=== PATIENT | female | born 1990 | race Native Hawaiian/Other Pacific Islander ===

== ENCOUNTER 2017-01-18 08:00 | Outpatient (CLI) | payer MEDICARE, MEDICAID ==
[2017-01-18 19:01] LABS: BASOPHILS % (AUTO) 0.4 %; EOSINOPHILS % (AUTO) 0.6 %; HCT - HEMATOCRIT 39.6 % (37.0-47.0); HGB - HEMOGLOBIN 13.3 g/dL (12.0-16.0); LYMPHOCYTES # (AUTO) 1.8 10^3/uL (1.5-3.5); LYMPHOCYTES % (AUTO) 35.8 %; MEAN CORPUSCULAR HEMOGLOBIN 31.4 pg (27.0-31.0); MEAN CORPUSCULAR HGB CONC 33.6 g/dL (32.0-36.0); MEAN CORPUSCULAR VOLUME 93.3 fL (81.0-99.0); MEAN PLATELET VOLUME 7.6 fL (7.9-10.8); MONOCYTES # (AUTO) 0.4 10^3/uL (0.0-1.0); MONOCYTES % (AUTO) 8.8 %; NEUTROPHILS # (AUTO) 2.7 10^3/uL (1.5-6.6); NEUTROPHILS % (AUTO) 54.4 %; NUCLEATED RED BLOOD CELLS AUTO 0.1 /100WBC; RED BLOOD COUNT 4.24 10^6/uL (4.20-5.40)
[2017-01-18 19:28] LABS: ALBUMIN/GLOBULIN RATIO 1.2 (1.0-2.2); BILIRUBIN,TOTAL 0.5 mg/dL (0.2-1.0); CALCIUM 8.9 mg/dL (8.5-10.3); CREATININE 0.7 mg/dL (0.4-1.0); POTASSIUM 3.4 mmol/L (3.5-5.0); TOTAL PROTEIN 7.8 g/dL (6.7-8.2)
[2017-01-18 19:35] LABS: T3 UPTAKE 40.1 % (32.0-48.4)
[2017-01-18 19:37] LABS: THYROID STIMULATING HORMONE 1.27 uIU/mL (0.34-5.60)
[2017-01-18 19:49] LABS: FOLATE 11.39 ng/mL (5.90 - >24.8)
== END 2017-01-18 08:01 | disposition home or self-care (01) ==
LOC: LAB.N 08:00
PROVIDERS: ATTEND Nurse Practitioner Psychiatric/Mental Health
DX: F29 Unspecified psychosis not due to a substance or known physiological condition (principal); Z51.81 Encounter for therapeutic drug level monitoring
CPT/HCPCS: 36415; 80053; 82746; 84436; 84443; 84479; 85025

== ENCOUNTER 2018-07-26 19:59 | Emergency (ER) | payer MEDICARE, MEDICAID ==
--- NOTE | 2018-07-26 20:46 | ED Physician Documentation ---
History of Present Illness - Stated complaint Stated Complaint: RT KNEE INJ - Chief complaint Chief Complaint: Trauma Ext - History obtained from History obtained from: Family - Additonal information Additional information: Patient is a 28-year-old female with history of developmental delay and schizophrenia presenting with her family with concern for right knee pain. Patient was traveling yesterday in the airport and was sitting in a wheelchair and her knee accidentally hit an object while she was being pushed around. Really denies any particular skin changes or swelling. It is difficult to ascertain if patient is experiencing any significant sensation, strength, range of motion change, but she does hold me in a flexed position. No other injuries noted. No other improving or worsening factors noted. No medications given at home yet. Review of Systems Skin: denies: Rash, Abrasion (s) Musculoskeletal: reports: Extremity pain, Joint pain. denies: Extremity swelling PD PAST MEDICAL HISTORY - Past Medical History Psych: Schizophrenia - Past Surgical History Past Surgical History: No - Present Medications Home Medications: Ambulatory Orders Medication Instructions Recorded Confirmed RX: OLANZapine [ZyPREXA] 20 mg PO DAILY 01/25/14 01/25/14 Fluoxetine HCl [Prozac] 20 mg ORAL DAILY 07/26/18 07/26/18 - Allergies Allergies/Adverse Reactions: Allergies Allergy/AdvReac Type Severity Reaction Status Date / Time No Known Drug Allergies Allergy Verified 07/26/18 20:17 - Social History Does the pt smoke?: No Smoking Status: Never smoker Does the pt drink ETOH?: No Does the pt have substance abuse?: No - Immunizations Immunizations are current?: Yes - POLST Patient has POLST: No PD ED PE NORMAL - Vitals Vital signs reviewed: Yes - General General: No acute distress, Well developed/nourished (Appears chronically ill, nonverbal) - HEENT HEENT: Atraumatic - Cardiac Cardiac: Strong equal pulses (Cap refill brisk) - Respiratory Respiratory: No respiratory distress - Derm Derm: Normal color, Warm and dry, No rash - Extremities Extremities: No deformity, No tenderness to palpate, Normal ROM s pain, No edema - Neuro Neuro: No motor deficit, No sensory deficit (No gross deficits noted) Results - Vitals Vitals: Vital Signs - 24 hr 07/26/18 07/26/18 07/26/18 20:09 20:36 22:26 Temperature 37.5 C 37.4 C Heart Rate 99 99 98 Respiratory 16 16 Rate Blood Pressure 89/48 L 85/53 L 105/68 O2 Saturation 100 100 Oxygen O2 Source Room air PD MEDICAL DECISION MAKING - ED course Complexity details: reviewed results, re-evaluated patient, considered differential, d/w patient, d/w family ED course: History is obtained through family as patient is nonverbal at baseline. Family report no major changes to mental or physical status except for reported knee injury on the right yesterday and patient's unwillingness to use the right leg. Do not find evidence of vascular compromise, infection, or joint effusion. Do not see high suspicion for fracture or dislocation, but obtained x-rays to further evaluate. Also have lower suspicion for internal knee injury such as meniscus or ligamentous damage, although given patient's baseline, difficult to obtain full physical exam. X-rays returned without evidence of acute pathology and feel most appropriate to discharge patient with supportive cares, as well as return precautions and advisement to follow-up with primary care physician. Family voiced understanding and are comfortable with discharge plan. Departure - Departure Disposition: 01 Home, Self Care Clinical Impression: Knee injury Instructions: ED Sprain Knee Follow-Up: Blanca Kent ARNP [Primary Care Provider] - Within 3 Days Comments: Please continue all home medications as previously instructed. May use ibuprofen/Tylenol for pain and knee. Also recommend elevation and ice application to help reduce swelling.Return to ED sooner if expands worsening symptoms or other concerns. Recommend follow-up with primary care physician in next 2 to 3 days. Discharge Date/Time: 07/26/18 22:28
--- NOTE | 2018-07-26 21:48 | XRAY Report ---
Reason: hit leg in airport while in wheelchair Procedure Date: 07/26/2018 Accession Number: [id number] / [id number] Procedure: XR - Knee 4 View RT CPT Code: FULL RESULT: EXAM: RIGHT KNEE RADIOGRAPHY EXAM DATE: 07/26/2018 09:29 PM. CLINICAL HISTORY: Hit leg in airport while in wheelchair. COMPARISON: None. TECHNIQUE: 4 views. FINDINGS: Bones: No acute fractures or suspicious bone lesions. Joints: No effusion. No subluxations. Joint spaces are preserved. Soft Tissues: Unremarkable. IMPRESSION: Unremarkable knee radiography. RADIA
[2018-07-26 22:28] VITALS: BP 105/68
== END 2018-07-26 22:28 | disposition home or self-care (01) ==
LOC: ED 19:59
DX: S89.91XA Unspecified injury of right lower leg, initial encounter (principal); W22.09XA Striking against other stationary object, initial encounter; Y93.89 Activity, other specified; Y92.520 Airport as the place of occurrence of the external cause; F20.9 Schizophrenia, unspecified
CPT/HCPCS: 99283

== ENCOUNTER 2018-11-16 08:00 | Outpatient (CLI) | payer MEDICARE, MEDICAID ==
[2018-11-16 19:41] LABS: BASOPHILS % (AUTO) 0.3 %; EOSINOPHILS # (AUTO) 0.1 10^3/uL (0.0-0.7); EOSINOPHILS % (AUTO) 2.1 %; HGB - HEMOGLOBIN 12.2 g/dL (12.0-16.0); LYMPHOCYTES # (AUTO) 1.2 10^3/uL (1.5-3.5); LYMPHOCYTES % (AUTO) 34.5 %; MEAN CORPUSCULAR HEMOGLOBIN 28.6 pg (27.0-31.0); MEAN CORPUSCULAR HGB CONC 31.3 g/dL (32.0-36.0); MEAN CORPUSCULAR VOLUME 91.5 fL (81.0-99.0); MEAN PLATELET VOLUME 10.5 fL (7.9-10.8); MONOCYTES # (AUTO) 0.3 10^3/uL (0.0-1.0); MONOCYTES % (AUTO) 9.5 %; NEUTROPHILS # (AUTO) 1.8 10^3/uL (1.5-6.6); NEUTROPHILS % (AUTO) 53.3 %; PLT - PLATELET COUNT 262 10^3/uL (130-450); RED BLOOD COUNT 4.26 10^6/uL (4.20-5.40); RED CELL DISTRIBUTION WIDTH 13.7 % (12.0-15.0); WHITE BLOOD COUNT 3.4 x10^3/uL (4.8-10.8)
[2018-11-16 19:55] LABS: ALBUMIN 4.3 g/dL (3.2-5.5); ALBUMIN/GLOBULIN RATIO 1.1 (1.0-2.2); BILIRUBIN,TOTAL 0.3 mg/dL (0.2-1.0); CREATININE 0.7 mg/dL (0.4-1.0); TOTAL PROTEIN 8.2 g/dL (6.7-8.2)
[2018-11-16 20:06] LABS: THYROID STIMULATING HORMONE 3.51 uIU/mL (0.34-5.60)
[2018-11-16 20:08] LABS: FREE T4 (FREE THYROXINE) 1.14 ng/dL (0.58-1.64)
[2018-11-16 21:11] LABS: PLATELET ESTIMATE, MANUAL NORMAL (130-450,000) (NORMAL); PLATELET MORPHOLOGY NORMAL APPEARANCE (NORMAL); RBC MORPHOLOGY (MULTIPLE) NORMAL APPEARANCE (NORMAL)
[2018-11-16 21:13] LABS: DIFFERENTIAL COMMENT MANUAL=AUTO DIFF
== END 2018-11-16 23:59 | disposition home or self-care (01) ==
LOC: LAB.N 08:00
PROVIDERS: ATTEND Physician Assistant Medical
DX: R63.0 Anorexia (principal); E87.6 Hypokalemia; R62.50 Unspecified lack of expected normal physiological development in childhood
CPT/HCPCS: 36415; 80053; 84439; 84443; 85025

== ENCOUNTER 2018-11-16 11:51 | Outpatient (CLI) | payer MEDICARE, MEDICAID | END 2018-11-16 11:52 | disposition critical access hospital (66) | LOC: EMS 11:51 | PROVIDERS: ATTEND Surgery | DX: R55 Syncope and collapse (principal) | CPT/HCPCS: A0425; A0427 ==

== ENCOUNTER 2018-11-16 12:13 | Emergency (ER) | payer MEDICARE, MEDICAID ==
[2018-11-16] MEDS ORDERED: SODIUM CHLORIDE 0.9% 1,000 ML IV ONE (12:30)
--- NOTE | 2018-11-16 13:15 | ED Physician Documentation ---
History of Present Illness - Stated complaint Stated Complaint: SYNCOPAL - Chief complaint Chief Complaint: General - History obtained from History obtained from: Family (mom) - History of Present Illness Timing: Today (This is a young lady with pretty severe schizophrenia. She was having a blood draw at the clinic today and shortly thereafter had a syncopal episode. Mom feels that she might be dehydrated because all she drinks his coffee. She is never passed out like this with a blood draw before though. Patient herself is noncommunicative which is her baseline.) Review of Systems Constitutional: denies: Fever GI: denies: Vomiting, Constipation, Diarrhea Skin: reports: Rash (She is a long-standing rash for which she has seen a dog bather. They have been giving her Benadryl for the itching which is not helping.) PD PAST MEDICAL HISTORY - Past Medical History Psych: Schizophrenia - Past Surgical History Past Surgical History: No - Present Medications Home Medications: Ambulatory Orders Medication Instructions Recorded Confirmed OLANZapine [ZyPREXA] 20 mg PO DAILY 01/25/14 01/25/14 Fluoxetine HCl [Prozac] 20 mg ORAL DAILY 07/26/18 07/26/18 - Allergies Allergies/Adverse Reactions: Allergies Allergy/AdvReac Type Severity Reaction Status Date / Time No Known Drug Allergies Allergy Verified 07/26/18 20:17 - Social History Does the pt smoke?: No Smoking Status: Never smoker Does the pt drink ETOH?: No Does the pt have substance abuse?: No - Immunizations Immunizations are current?: Yes - POLST Patient has POLST: No PD ED PE NORMAL - Vitals Vital signs reviewed: Yes - General General: Other (She will look at me and smile. She is nonverbal. She intermittently follows very simple commands but for the most part just sits in bed staring. This is her baseline per the family.) - HEENT HEENT: PERRL - Neck Neck: Supple, no meningeal sign - Cardiac Cardiac: RRR, No murmur - Respiratory Respiratory: No respiratory distress, Clear bilaterally - Abdomen Abdomen: Non tender - Derm Derm: Other (She has a plaque-like rash on the face stomach and arms. She is been seeing a dog bather but the mom does not know what the specific diagnosis is.) Results - Vitals Vitals: Vital Signs - 24 hr 11/16/18 11/16/18 11/16/18 12:16 12:30 12:45 Temperature 37.3 C Heart Rate 70 76 85 Respiratory 16 16 16 Rate Blood Pressure 84/57 L 90/52 L 102/72 O2 Saturation 100 98 98 11/16/18 11/16/18 13:00 13:46 Temperature Heart Rate 82 87 Respiratory 16 16 Rate Blood Pressure 91/62 95/66 O2 Saturation Oxygen O2 Source Room air - EKG (time done) 1334 Rate: Rate (enter#) (90) Rhythm: NSR [place]: Normal Intervals: Normal [place] QRS: Normal Ischemia: Non specific changes Computer interpretation: Agree with computer - Labs Labs: Laboratory Tests 11/16/18 11/16/18 11/16/18 12:46 12:57 12:57 WBC 6.9 RBC 3.67 L Hgb 11.1 L Hct 33.1 L MCV 90.2 MCH 30.2 MCHC 33.5 RDW 13.2 Plt Count 218 MPV 10.0 Neut # (Auto) 5.2 Lymph # (Auto) 1.2 L [place] # (Auto) 0.4 Eos # (Auto) 0.1 Baso # (Auto) 0.0 Absolute Nucleated RBC 0.00 Nucleated RBC % 0.0 Sodium 144 Potassium 3.8 Chloride 111 Carbon Dioxide 23 Anion Gap 10.0 BUN 8 Creatinine 0.7 Estimated GFR (MDRD) 99 Glucose 92 Calcium 8.2 L Total Bilirubin 0.4 AST 22 ALT 11 Alkaline Phosphatase 44 Total Protein 7.0 Albumin 3.6 Globulin 3.4 Albumin/Globulin Ratio 1.1 Lipase 25 Serum HCG, Qual NEGATIVE PD MEDICAL DECISION MAKING - ED course ED course: This young lady had a syncopal episode after a blood draw. Nothing on the work- up would suggest any cause other than vasovagal. She is mildly anemic and follow-up was advised. Note made that she has borderline low blood pressure, but review of the chart shows that this is frequent on previous emergency visits. Departure - Departure Disposition: 01 Home, Self Care Clinical Impression: Syncope Qualifiers: Syncope type: vasovagal syncope Qualified Code(s): R55 - Syncope and collapse Anemia Qualifiers: Anemia type: unspecified type Qualified Code(s): D64.9 - Anemia, unspecified Condition: Good Record reviewed to determine appropriate education?: Yes Instructions: ED Syncope Vasovagal Comments: Vanessa is mildly anemic. She needs to follow-up with her doctor for this. Return for new or worsening symptoms.
[2018-11-16 13:17] LABS: BASOPHILS % (AUTO) 0.3 %; EOSINOPHILS # (AUTO) 0.1 10^3/uL (0.0-0.7); EOSINOPHILS % (AUTO) 0.7 %; HGB - HEMOGLOBIN 11.1 g/dL (12.0-16.0); LYMPHOCYTES # (AUTO) 1.2 10^3/uL (1.5-3.5); LYMPHOCYTES % (AUTO) 17.1 %; MEAN CORPUSCULAR HEMOGLOBIN 30.2 pg (27.0-31.0); MEAN CORPUSCULAR HGB CONC 33.5 g/dL (32.0-36.0); MEAN CORPUSCULAR VOLUME 90.2 fL (81.0-99.0); MONOCYTES # (AUTO) 0.4 10^3/uL (0.0-1.0); MONOCYTES % (AUTO) 5.8 %; NEUTROPHILS # (AUTO) 5.2 10^3/uL (1.5-6.6); NEUTROPHILS % (AUTO) 75.7 %; PLT - PLATELET COUNT 218 10^3/uL (130-450); RED BLOOD COUNT 3.67 10^6/uL (4.20-5.40); RED CELL DISTRIBUTION WIDTH 13.2 % (12.0-15.0); WHITE BLOOD COUNT 6.9 x10^3/uL (4.8-10.8)
[2018-11-16 13:34] LABS: ALBUMIN 3.6 g/dL (3.2-5.5); ALBUMIN/GLOBULIN RATIO 1.1 (1.0-2.2); BILIRUBIN,TOTAL 0.4 mg/dL (0.2-1.0); CREATININE 0.7 mg/dL (0.4-1.0)
[2018-11-16 13:43] LABS: HCG,QUALITATIVE BLOOD NEGATIVE
[2018-11-16 13:44] LABS: CALCIUM 8.2 mg/dL (8.5-10.3)
[2018-11-16 13:47] VITALS: BP 95/66
== END 2018-11-16 14:32 | disposition home or self-care (01) ==
LOC: EDUNIT# → EDBD → ED 12:13
DX: R55 Syncope and collapse (principal); D64.9 Anemia, unspecified; R21 Rash and other nonspecific skin eruption; F20.9 Schizophrenia, unspecified; E87.6 Hypokalemia; R62.50 Unspecified lack of expected normal physiological development in childhood; R63.0 Anorexia
CPT/HCPCS: 36415; 80053; 83690; 84439; 84443; 84703; 85025; 93005; 96360; 99283

== ENCOUNTER 2018-12-22 10:47 | Outpatient (CLI) | payer MEDICARE, MEDICAID | END 2018-12-22 10:48 | disposition EMS.NT | LOC: EMS 10:47 | PROVIDERS: ATTEND Surgery | DX: R11.10 Vomiting, unspecified (principal) ==

== ENCOUNTER 2019-01-05 12:51 | Outpatient (CLI) | payer MEDICARE, MEDICAID | END 2019-01-05 12:52 | disposition critical access hospital (66) | LOC: EMS 12:51 | PROVIDERS: ATTEND Surgery | DX: R55 Syncope and collapse (principal); R19.7 Diarrhea, unspecified; R11.2 Nausea with vomiting, unspecified | CPT/HCPCS: A0425; A0429 ==

== ENCOUNTER 2019-01-05 13:13 | Emergency (ER) | payer MEDICARE, MEDICAID ==
--- NOTE | 2019-01-05 13:23 | ED Physician Documentation ---
PD HPI SYNCOPE - Stated complaint Stated Complaint: SYNCOPE - History obtained from History obtained from: Family, Caregiver - History of Present Illness Witnessed: Witnessed Timing - onset: Today Duration: Unknown Preceding symptoms: Abdominal pain Associated symptoms: Nausea / vomiting, Abdominal pain. No: Seizure, Incontinant of urine, Incontinant of stool Contributing factors: Recent med change Injury occurred: None. No: Head injury, Neck injury Similar symptoms before: Has not had sx before Recently seen: Admitted - Additional information Additional information: This is a 28-year-old Dutch speaking woman who presents with her family with complaints that she has had 4 episodes of significant diarrhea followed by returning to her room and a passing out. She was just admitted to [facility] for what the family says was a month with some rash that no one could figure out the source of it they finally diagnosed her with lupus just 2 days ago and gave her prescription for hydrochloric when from the research program intern but the mom only gave her 1 dose and was concerned that the diarrhea was associated with that. She did vomit in the ambulance but had not been vomiting at home. She is had subjective fevers at home. No coughing. She does have a history of schizophrenia and they deny any . Family just noted today that her left eye was swollen as well and she has erythema to both conjunctiva. Review of Systems Unable to obtain: Other (Patient has a underlying diagnosis of schizophrenia and is difficult to get any history from even using an renal social worker. She just sits and smiles) Constitutional: reports: Fever (Subjective) Throat: denies: Sore throat Respiratory: denies: Cough GI: reports: Abdominal Pain, Vomiting, Diarrhea. denies: Bloody / black stool : denies: Dysuria, Now EGA Skin: reports: Rash Neurologic: reports: Syncope Psychiatric: reports: Other (History of schizophrenia) PD PAST MEDICAL HISTORY - Past Medical History Cardiovascular: Deep vein thrombosis Psych: Schizophrenia - Past Surgical History Past Surgical History: No - Present Medications Home Medications: Ambulatory Orders Medication Instructions Recorded Confirmed OLANZapine [ZyPREXA] 20 mg PO DAILY 01/25/14 01/25/14 Fluoxetine HCl [Prozac] 20 mg ORAL DAILY 07/26/18 07/26/18 Doxepin [SINEquan] 10 mg PO TID PRN #30 capsule 11/16/18 - Allergies Allergies/Adverse Reactions: Allergies Allergy/AdvReac Type Severity Reaction Status Date / Time mirtazapine Allergy Unknown Verified 01/05/19 13:25 - Social History Does the pt smoke?: No Smoking Status: Never smoker Does the pt drink ETOH?: No Does the pt have substance abuse?: No - Immunizations Immunizations are current?: Yes - POLST Patient has POLST: No PD ED PE NORMAL - Vitals Vital signs reviewed: Yes - General General: Alert and oriented X 3, No acute distress, Well developed/nourished - HEENT HEENT: Atraumatic, Other (The left upper and lower eyelids are edematous but they look mildly bruised along the medial aspect. Both conjunctiva have what looks like subconjunctival hemorrhages along the medial aspect. The tongue is covered with ulcerations along the side and tip and extending onto the top and bottom of it. There are no Cheek mucosal lesions.) - Neck Neck: No adenopathy, Thyroid normal - Cardiac Cardiac: No murmur, Strong equal pulses, Other (Tachycardia) - Respiratory Respiratory: No respiratory distress, Clear bilaterally - Abdomen Abdomen: Other (Hypoactive bowel tones. She has tenderness with palpation in the abdomen particularly along the right side. 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 ) - Derm Derm: Other (Patient's skin is covered with target lesions and other flat erythematous papules. The right ear pinna has a ulcerated area with scabbing that encompasses down onto the jaw several millimeters long and only a millimeter or 2 wide.) Results - Vitals Vitals: Vital Signs - 24 hr 01/05/19 01/05/19 01/05/19 13:25 13:44 15:30 Temperature 36.5 C Heart Rate 126 H 123 H 115 H Respiratory 26 H 22 20 Rate Blood Pressure 92/60 82/58 L 99/66 O2 Saturation 97 22 L 100 01/05/19 01/05/19 01/05/19 16:00 17:00 17:35 Temperature 36.7 C Heart Rate 111 H 104 H 103 H Respiratory 18 22 24 Rate Blood Pressure 92/59 L 100/71 92/63 O2 Saturation 100 100 100 01/05/19 01/05/19 01/05/19 18:00 18:30 18:49 Temperature Heart Rate 95 98 97 Respiratory 24 24 28 H Rate Blood Pressure 94/61 91/51 L 87/46 L O2 Saturation 98 100 100 01/05/19 01/05/19 01/05/19 18:53 19:01 19:15 Temperature 36.6 C Heart Rate 96 91 96 Respiratory 24 28 H 28 H Rate Blood Pressure 89/55 L 99/63 99/63 O2 Saturation 97 100 100 01/05/19 01/05/19 01/05/19 20:48 22:00 23:23 Temperature Heart Rate 92 94 95 Respiratory 15 19 12 Rate Blood Pressure 93/57 L 101/65 98/60 O2 Saturation 100 99 100 01/06/19 01/06/19 01/06/19 01:08 01:52 02:12 Temperature 36.1 C L Heart Rate 112 H 87 87 Respiratory 16 17 19 Rate Blood Pressure 118/71 82/47 L 93/55 L O2 Saturation 98 99 99 Oxygen O2 Source Room air - EKG (time done) 1401 Rate: Rate (enter#) (126) Rhythm: Sinus tachycardia Intervals: Normal [place]. No: Wide QRS Ischemia: Normal ST segments Compare to prior EKG: Old EKG unavailable - Labs Labs: Laboratory Tests 01/05/19 01/05/19 01/05/19 13:15 13:52 13:52 WBC 7.9 RBC 4.72 Hgb 14.2 Hct 42.4 MCV 89.8 MCH 30.1 MCHC 33.5 RDW 16.2 H Plt Count 157 MPV 10.0 Neut # (Auto) Not Reportable Lymph # (Auto) Not Reportable [place] # (Auto) Not Reportable Eos # (Auto) Not Reportable Baso # (Auto) Not Reportable Absolute Nucleated RBC Not Reportable Total Counted 100 Band Neuts % (Manual) 6 Abnorm Lymph % (Manual) 0 Nucleated RBC % Not Reportable Neutrophils # (Manual) 6.9 H Lymphocytes # (Manual) 0.9 L Monocytes # (Manual) 0.2 Eosinophils # (Manual) 0.0 Basophils # (Manual) 0.0 Differential Comment MANUAL DIFFERENTIAL Manual Slide Review Indicated Platelet Estimate NORMAL (130-450,000) Platelet Morphology NORMAL APPEARANCE RBC Morph Micro Appear NORMAL APPEARANCE VBG pH VBG pCO2 VBG pO2 VBG HCO3 VBG Total CO2 VBG O2 Saturation VBG Base Excess Sodium 136 Potassium 4.7 Chloride 103 Carbon Dioxide 22 Anion Gap 11.0 BUN 14 Creatinine 0.7 Estimated GFR (MDRD) 99 Glucose 140 H Lactic Acid Calcium 8.4 L Total Bilirubin 0.8 AST 31 ALT 29 Alkaline Phosphatase 53 Total Protein 7.2 Albumin 3.3 Globulin 3.9 Albumin/Globulin Ratio 0.8 L Lipase 24 Urine Color Urine Clarity Urine pH Ur Specific [place] Urine Protein Urine Glucose (UA) Urine Ketones Urine Occult Blood Urine Nitrite Urine Bilirubin Urine Urobilinogen Ur Leukocyte Esterase Urine RBC Urine WBC Urine WBC Clumps Ur Squamous Epith Cells Urine Bacteria Urine Mucus Ur Microscopic Review Urine Culture Comments HIV 1&2 Antibody Rapid NEGATIVE 01/05/19 01/05/19 01/05/19 14:01 16:20 17:13 WBC RBC Hgb Hct MCV MCH MCHC RDW Plt Count MPV Neut # (Auto) Lymph # (Auto) [place] # (Auto) Eos # (Auto) Baso # (Auto) Absolute Nucleated RBC Total Counted Band Neuts % (Manual) Abnorm Lymph % (Manual) Nucleated RBC % Neutrophils # (Manual) Lymphocytes # (Manual) Monocytes # (Manual) Eosinophils # (Manual) Basophils # (Manual) Differential Comment Manual Slide Review Platelet Estimate Platelet Morphology RBC Morph Micro Appear VBG pH 7.412 H VBG pCO2 35.7 L VBG pO2 45.9 VBG HCO3 22.2 L VBG Total CO2 23.3 L VBG O2 Saturation 82.9 H VBG Base Excess -1.8 Sodium Potassium Chloride Carbon Dioxide Anion Gap BUN Creatinine Estimated GFR (MDRD) Glucose Lactic Acid 1.6 Calcium Total Bilirubin AST ALT Alkaline Phosphatase Total Protein Albumin Globulin Albumin/Globulin Ratio Lipase Urine Color DARK YELLOW Urine Clarity CLEAR Urine pH 6.5 Ur Specific [place] 1.010 Urine Protein 30 H Urine Glucose (UA) NEGATIVE Urine Ketones NEGATIVE Urine Occult Blood MODERATE H Urine Nitrite NEGATIVE Urine Bilirubin NEGATIVE Urine Urobilinogen 0.2 (NORMAL) Ur Leukocyte Esterase NEGATIVE Urine RBC 0-5 Urine WBC 4-5 Urine WBC Clumps PRESENT Ur Squamous Epith Cells MANY Squamous H Urine Bacteria Many H Urine Mucus Few Strands Ur Microscopic Review INDICATED Urine Culture Comments NOT INDICATED HIV 1&2 Antibody Rapid 01/05/19 20:30 WBC RBC Hgb Hct MCV MCH MCHC RDW Plt Count MPV Neut # (Auto) Lymph # (Auto) [place] # (Auto) Eos # (Auto) Baso # (Auto) Absolute Nucleated RBC Total Counted Band Neuts % (Manual) Abnorm Lymph % (Manual) Nucleated RBC % Neutrophils # (Manual) Lymphocytes # (Manual) Monocytes # (Manual) Eosinophils # (Manual) Basophils # (Manual) Differential Comment Manual Slide Review Platelet Estimate Platelet Morphology RBC Morph Micro Appear VBG pH VBG pCO2 VBG pO2 VBG HCO3 VBG Total CO2 VBG O2 Saturation VBG Base Excess Sodium Potassium Chloride Carbon Dioxide Anion Gap BUN Creatinine Estimated GFR (MDRD) Glucose Lactic Acid 1.1 Calcium Total Bilirubin AST ALT Alkaline Phosphatase Total Protein Albumin Globulin Albumin/Globulin Ratio Lipase Urine Color Urine Clarity Urine pH Ur Specific [place] Urine Protein Urine Glucose (UA) Urine Ketones Urine Occult Blood Urine Nitrite Urine Bilirubin Urine Urobilinogen Ur Leukocyte Esterase Urine RBC Urine WBC Urine WBC Clumps Ur Squamous Epith Cells Urine Bacteria Urine Mucus Ur Microscopic Review Urine Culture Comments HIV 1&2 Antibody Rapid - Rads (name of study) CXR Radiology: EMP read contemporaneously (Neg acute), See rad report CT abd/pelvis Radiology: See rad report (severe enteritis with free fluid) PD MEDICAL DECISION MAKING - ED course Complexity details: reviewed results, re-evaluated patient, d/w patient, d/w family ED course: Patient was hypotensive and tachycardic on arrival. She was given a liter of fluids and remained hypotensive and tachycardic was given an additional second liter. Her MAP stayed above 65. She was switched to lactated Ringer's after the second liter of normal saline. She has erosive lesions inside of her mouth and abdominal pain. I did a CT scan that showed significant or enteritis along with free fluid in her abdomen. Chest x-ray was negative for infection. Her white blood cell count liver enzymes and renal function are normal. Blood cultures have been obtained as well as urinalysis shich showed only 4 WBCs, but many bacteria per HPF. I am waiting for callback from [facility] about transfer for ICU admission. This a very complicated case involving skin lesions as well as enteritis with suspected sepsis and possibly peritonitis. Departure - Departure Disposition: 02 Transfer Acute Care Hosp Clinical Impression: Enteritis, Lupus, Syncope Condition: Stable Discharge Date/Time: 01/06/19 02:14
[2019-01-05] MEDS ORDERED: SODIUM CHLORIDE 0.9% 1,000 ML IV ONE ×2 (13:55→15:26)
[2019-01-05 14:26] LABS: VBG PCO2 35.7 mmHg (41-51); VBG PH 7.412 (7.31-7.41); VBG PO2 45.9 mmHg (25-47); VBG TOTAL CO2 23.3 mmol/L (24-29)
[2019-01-05 14:27] LABS: VBG BASE EXCESS -1.8 mmol/L (-2 - +2)
[2019-01-05 14:36] LABS: BASOPHILS % (AUTO) 0.3 %
[2019-01-05 14:46] LABS: EOSINOPHILS % (AUTO) 0.1 %; HGB - HEMOGLOBIN 14.2 g/dL (12.0-16.0); LYMPHOCYTES % (AUTO) 11.7 %; MEAN CORPUSCULAR HEMOGLOBIN 30.1 pg (27.0-31.0); MEAN CORPUSCULAR HGB CONC 33.5 g/dL (32.0-36.0); MEAN CORPUSCULAR VOLUME 89.8 fL (81.0-99.0); MONOCYTES % (AUTO) 1.8 %; NEUTROPHILS % (AUTO) 85.1 %; PLT - PLATELET COUNT 157 10^3/uL (130-450); RED BLOOD COUNT 4.72 10^6/uL (4.20-5.40); RED CELL DISTRIBUTION WIDTH 16.2 % (12.0-15.0); WHITE BLOOD COUNT 7.9 x10^3/uL (4.8-10.8)
[2019-01-05 14:59] LABS: ALBUMIN 3.3 g/dL (3.2-5.5); ALBUMIN/GLOBULIN RATIO 0.8 (1.0-2.2); BILIRUBIN,TOTAL 0.8 mg/dL (0.2-1.0); CALCIUM 8.4 mg/dL (8.5-10.3); CREATININE 0.7 mg/dL (0.4-1.0); TOTAL PROTEIN 7.2 g/dL (6.7-8.2)
[2019-01-05 15:01] LABS: ABNORMAL LYMPHS % (MANUAL) 0 %
[2019-01-05 15:15] LABS: HIV RAPID SCREEN NEGATIVE (NEGATIVE)
[2019-01-05 15:41] LABS: BAND NEUTROPHILS % (MANUAL) 6 %; LYMPHOCYTES # (MANUAL) 0.9 10^3/uL (1.5-3.5); LYMPHOCYTES % (MANUAL) 11 %; MONOCYTES # (MANUAL) 0.2 10^3/uL (0.0-1.0)
[2019-01-05 15:42] LABS: DIFFERENTIAL COMMENT MANUAL DIFFERENTIAL; PLATELET ESTIMATE, MANUAL NORMAL (130-450,000) (NORMAL); PLATELET MORPHOLOGY NORMAL APPEARANCE (NORMAL); RBC MORPHOLOGY (MULTIPLE) NORMAL APPEARANCE (NORMAL)
[2019-01-05] MEDS ORDERED: IOVERSOL 320 100 ML VIAL IVP ONE ×2 (16:28→16:45)
--- NOTE | 2019-01-05 17:13 | XRAY Report ---
Reason: chest pain Procedure Date: 01/05/2019 Accession Number: [id number] / [id number] Procedure: XR - Chest 1 View X-Ray CPT Code: 46699 Final Report FULL RESULT: EXAM: CHEST RADIOGRAPHY EXAM DATE: 01/05/2019 04:47 PM. CLINICAL HISTORY: Chest pain. COMPARISON: CHEST 2 VIEW PA/LAT 10/15/2013 1:07 PM. TECHNIQUE: 1 view. FINDINGS: Lungs/Pleura: Stable linear basilar pulmonary opacities likely reflect atelectasis. No other new focal consolidation. No pleural effusion or pneumothorax. Mediastinum: Stable heart size and mediastinum. Other: None. IMPRESSION: No radiographic evidence for acute cardiopulmonary process. RADIA
[2019-01-05 17:21] LABS: BILIRUBIN,URINE NEGATIVE (NEGATIVE); GLUCOSE, URINE (UA) NEGATIVE (NEGATIVE); KETONES,URINE (UA) NEGATIVE (NEGATIVE); LEUKOCYTE ESTERASE, URINE NEGATIVE (NEGATIVE); NITRITE,URINE NEGATIVE (NEGATIVE); OCCULT BLOOD,URINE MODERATE (NEGATIVE); PH,URINE 6.5 PH (5.0-7.5); PROTEIN,URINE 30 mg/dL (NEGATIVE); UROBILINOGEN,URINE 0.2 (NORMAL) E.U./dL (NORMAL)
[2019-01-05 17:23] LABS: CLARITY,URINE CLEAR (CLEAR)
[2019-01-05 17:31] LABS: BACTERIA,URINE Many /HPF (None Seen); RBC,URINE 0-5 /HPF (0-5); SQUAMOUS EPITHELIAL CELL,UR MANY Squamous (<= Few); WBC CLUMPS,URINE PRESENT
[2019-01-05 17:32] LABS: MUCUS,URINE Few Strands
--- NOTE | 2019-01-05 17:44 | CT Report ---
Reason: abdominal pain Procedure Date: 01/05/2019 Accession Number: [id number] / [id number] Procedure: CT - Abdomen/Pelvis W CPT Code: Final Report FULL RESULT: EXAM: CT ABDOMEN AND PELVIS EXAM DATE: 01/05/2019 04:43 PM. CLINICAL HISTORY: Abdominal pain. COMPARISONS: CHEST 2 VIEW PA/LAT 10/15/2013 1:07 PM ABDOMEN US LIMITED 04/01/2011 6:16 PM XR ACUTE ABDOMEN SERIES 09/20/2009 10:26 PM XR ABDOMEN SUPINE TECHNIQUE: Routine helical CT imaging was performed through the abdomen and pelvis. IV contrast: OPTI 320 80ML. Enteric contrast: No. Reconstructions: Coronal and sagittal. In accordance with CT protocol optimization, one or more of the following dose reduction techniques were utilized for this exam: automated exposure control, adjustment of mA and/or KV based on patient size, or use of iterative reconstructive technique. FINDINGS: Motion artifact moderately degrades diagnostic quality of exam. Lung Bases: Mild left basilar atelectasis. Normal heart size. No pericardial effusion. Liver: Normal. No masses. Gallbladder/Bile Ducts: Unremarkable. Spleen: Normal. Pancreas: Normal. Adrenal Glands: Normal. Kidneys: Normal. No masses or hydronephrosis. Peritoneal Cavity/Bowel: The stomach is distended with fluid. Mild dilatation and moderate to marked wall thickening with mural hyperenhancement of fluid-filled small bowel. No discrete transition point. Apparent mild thickening of the appendix up to 7 mm but without surrounding inflammatory fat stranding or adjacent free fluid, possibly related to motion artifact and/or adjacent small bowel inflammation. Small volume perihepatic and bilateral pericolic gutter ascites. No pneumoperitoneum. No abdominal or pelvic lymphadenopathy. Pelvic Organs: Moderate free fluid in the pelvis. Urinary bladder is incompletely distended. Small amount fluid in the endometrial canal, physiologic. Physiologic ovarian follicles. Vasculature: Slitlike inferior vena cava. Bones: Moderate bilateral osteitis condensans ilii Other: None. IMPRESSION: 1. Marked enteritis associated with moderate free fluid in the abdomen and pelvis. Favor infectious/inflammatory etiology 2. Slitlike inferior vena cava may be related to dehydration. RADIA
[2019-01-05] MEDS ORDERED: PIPERACILLIN/TAZOBACTAM 3.375 GM in SODIUM CHLORIDE 0.9% MINIBAG 100 ML IV STA (17:54)
[2019-01-05] MEDS ORDERED: LACTATED RINGERS 1,000 ML IV STA ×2 (18:56→18:57)
--- NOTE | 2019-01-05 20:06 | ED Physician Documentation ---
ED Addendum - Addendum Addendum: This is a 28-year-old female who was signed out to me from Dr. Quesada. Briefly she Was recently diagnosed with lupus well during a 13-day stay at [facility] for rash. She has a history of schizophrenia, and she is American speaking only. Today she came in after multiple episodes of nonbloody diarrhea, she had a syncopal episode. She initially was mildly hypotensive, but her blood pressure has improved to maps greater than 65 with fluids. Her EKG was unrevealing. She has skin lesions throughout her body and some new ones noted under her tongue. Her blood counts and abdominal panel are unrevealing, lactate is normal, chest x-ray was clear. CT scan shows enteritis in the abdomen and some free fluid. Initially she was going to be transferred to [facility], they did not have beds, she was then can be transferred to [facility] due to concern for potential Landa-Med syndrome. After reviewing the case and examining the patient, she does not have any ulcerations or signs of mucositis, lesions on her tongue or in fact areas of erythema, she does have some mild conjunctivitis, but no other signs of ulcerations or peeling skin or bulla, Landa-Med seems less likely at this time. She does have a apparent autoimmune disorder/lupus, With apparent multiorgan involvement, and is unclear if her enteritis is related to this or separate. I spoke to the hospitalist at [facility], who stated that they did not have rheumatology or dermatology did not feel comfortable accepting the patient given her complicated presentation, I spoke with Dr. Lucio at [facility], who graciously accepted the patient for further care. She remains hemodynamically stable, she is still having some diarrhea which is nonbloody, she has a benign abdominal exam. We will transfer via ACLS so she can continue her IV fluids. Her mother is with her and is in agreement the plan.
[2019-01-06 02:13] VITALS: BP 93/55
[2019-01-07 13:52] LABS: HIV AG/AB 4TH GEN NON-REACTIVE (NON-REACTIVE)
[2019-01-07 15:56] LABS: HEPATITIS B SURFACE ANTIGEN NON-REACTIVE (NON-REACTIVE); HEPATITIS C ANTIBODY NON-REACTIVE (NON-REACTIVE)
== END 2019-01-06 02:14 | disposition short-term general hospital (02) ==
LOC: EDUNIT# → ED 13:13
DX: K52.9 Noninfective gastroenteritis and colitis, unspecified (principal); R55 Syncope and collapse; M32.10 Systemic lupus erythematosus, organ or system involvement unspecified; I95.9 Hypotension, unspecified; R00.0 Tachycardia, unspecified; K14.0 Glossitis; K13.70 Unspecified lesions of oral mucosa; L98.9 Disorder of the skin and subcutaneous tissue, unspecified; H10.9 Unspecified conjunctivitis; H02.845 Edema of left lower eyelid; H02.844 Edema of left upper eyelid; F20.9 Schizophrenia, unspecified
CPT/HCPCS: 36415; 71045; 74177; 80053; 81001; 82803; 83605; 83690; 85025; 86803; 87040; 87340; 93005; 96361; 96365; 99284; 99285; G0475; J7120; Q9967; 81003; 87086; 87389

== ENCOUNTER 2019-01-06 02:21 | Outpatient (CLI) | payer MEDICARE, MEDICAID | END 2019-01-06 02:22 | disposition short-term general hospital (02) | LOC: EMS 02:21 | PROVIDERS: ATTEND Surgery | DX: R55 Syncope and collapse (principal); R19.7 Diarrhea, unspecified; R11.2 Nausea with vomiting, unspecified; R21 Rash and other nonspecific skin eruption | CPT/HCPCS: A0425; A0426 ==

== ENCOUNTER 2019-01-15 11:53 | Outpatient (CLI) | payer MEDICARE, MEDICAID ==
[2019-01-15 17:14] LABS: BASOPHILS % (AUTO) 0.3 %; EOSINOPHILS % (AUTO) 0.1 %; HGB - HEMOGLOBIN 9.9 g/dL (12.0-16.0); LYMPHOCYTES % (AUTO) 8.1 %; MEAN CORPUSCULAR HEMOGLOBIN 31.2 pg (27.0-31.0); MEAN CORPUSCULAR HGB CONC 31.8 g/dL (32.0-36.0); MEAN CORPUSCULAR VOLUME 98.1 fL (81.0-99.0); MEAN PLATELET VOLUME 10.1 fL (7.9-10.8); MONOCYTES # (AUTO) 0.3 10^3/uL (0.0-1.0); MONOCYTES % (AUTO) 2.5 %; NEUTROPHILS # (AUTO) 9.9 10^3/uL (1.5-6.6); NEUTROPHILS % (AUTO) 83.6 %; PLT - PLATELET COUNT 390 10^3/uL (130-450); RED BLOOD COUNT 3.17 10^6/uL (4.20-5.40); RED CELL DISTRIBUTION WIDTH 19.5 % (12.0-15.0); WHITE BLOOD COUNT 11.9 x10^3/uL (4.8-10.8)
[2019-01-15 17:17] LABS: CALCIUM 8.6 mg/dL (8.5-10.3); CREATININE 0.7 mg/dL (0.4-1.0)
[2019-01-15 18:42] LABS: PLATELET ESTIMATE, MANUAL NORMAL (130-450,000) (NORMAL); PLATELET MORPHOLOGY NORMAL APPEARANCE (NORMAL)
[2019-01-15 18:43] LABS: DIFFERENTIAL COMMENT MANUAL=AUTO DIFF
== END 2019-01-15 23:59 | disposition home or self-care (01) ==
LOC: LAB.N 11:53
PROVIDERS: ATTEND Physician Assistant Medical
DX: E87.6 Hypokalemia (principal); D64.9 Anemia, unspecified
CPT/HCPCS: 36415; 80048; 85025

== ENCOUNTER 2019-01-30 10:53 | Outpatient (CLI) | payer MEDICARE, MEDICAID ==
[2019-01-30 18:43] LABS: BASOPHILS % (AUTO) 0.2 %; EOSINOPHILS % (AUTO) 0.5 %; HGB - HEMOGLOBIN 10.9 g/dL (12.0-16.0); LYMPHOCYTES # (AUTO) 2.1 10^3/uL (1.5-3.5); LYMPHOCYTES % (AUTO) 25.1 %; MEAN CORPUSCULAR HEMOGLOBIN 31.8 pg (27.0-31.0); MEAN CORPUSCULAR HGB CONC 31.3 g/dL (32.0-36.0); MEAN CORPUSCULAR VOLUME 101.5 fL (81.0-99.0); MEAN PLATELET VOLUME 9.8 fL (7.9-10.8); MONOCYTES # (AUTO) 0.4 10^3/uL (0.0-1.0); NEUTROPHILS # (AUTO) 5.7 10^3/uL (1.5-6.6); PLT - PLATELET COUNT 280 10^3/uL (130-450); RED BLOOD COUNT 3.43 10^6/uL (4.20-5.40); RED CELL DISTRIBUTION WIDTH 21.2 % (12.0-15.0); WHITE BLOOD COUNT 8.4 x10^3/uL (4.8-10.8)
[2019-01-30 19:28] LABS: PLATELET ESTIMATE, MANUAL NORMAL (130-450,000) (NORMAL); PLATELET MORPHOLOGY NORMAL APPEARANCE (NORMAL)
== END 2019-01-30 23:59 | disposition home or self-care (01) ==
LOC: LAB.N 10:53
PROVIDERS: ATTEND Physician Assistant Medical
DX: D64.9 Anemia, unspecified (principal)
CPT/HCPCS: 36415; 83921; 85025

== ENCOUNTER 2019-02-14 10:52 | Outpatient (CLI) | payer MEDICARE, MEDICAID ==
--- NOTE | 2019-02-18 08:44 | XRAY Report ---
Reason: difficulty breathing Procedure Date: 02/14/2019 Accession Number: [id number] / [id number] Procedure: XRN - Chest 1 View X-Ray CPT Code: 38582 Final Report FULL RESULT: EXAM: CHEST RADIOGRAPHY EXAM DATE: 02/14/2019 11:28 AM. CLINICAL HISTORY: Difficulty breathing. COMPARISON: CHEST 1 VIEW 01/05/2019 4:41 PM. CHEST 2 VIEW PA/LAT 10/15/2013 1:07 PM. ABDOMEN/PELVIS W/ 01/05/2019 4:35 PM. TECHNIQUE: 1 view. FINDINGS: Lungs/Pleura: Stable minimal bibasal atelectasis. No acute consolidations. No pleural effusion. No pneumothorax. Mediastinum: Within exam limitations, the cardiomediastinal contour is normal. Other: Minimal rightward thoracic scoliosis. IMPRESSION: No acute consolidations identified. RADIA
== END 2019-02-14 10:53 | disposition home or self-care (01) ==
LOC: DI.N 10:52
PROVIDERS: ATTEND Physician Assistant Medical
DX: R06.00 Dyspnea, unspecified (principal)
CPT/HCPCS: 71045

== ENCOUNTER 2019-04-17 07:00 | Outpatient (CLI) | payer MEDICARE, MEDICAID ==
[2019-04-17 19:18] LABS: BILIRUBIN,URINE NEGATIVE (NEGATIVE); GLUCOSE, URINE (UA) NEGATIVE (NEGATIVE); KETONES,URINE (UA) NEGATIVE (NEGATIVE); LEUKOCYTE ESTERASE, URINE SMALL (NEGATIVE); NITRITE,URINE NEGATIVE (NEGATIVE); OCCULT BLOOD,URINE NEGATIVE (NEGATIVE); PROTEIN,URINE NEGATIVE (NEGATIVE); UROBILINOGEN,URINE 0.2 (NORMAL) E.U./dL (NORMAL)
[2019-04-17 19:23] LABS: CLARITY,URINE CLEAR (CLEAR)
[2019-04-17 19:39] LABS: BACTERIA,URINE Many /HPF (None Seen); RBC,URINE 0-5 /HPF (0-5); SQUAMOUS EPITHELIAL CELL,UR MANY Squamous (<= Few)
== END 2019-04-17 23:59 | disposition home or self-care (01) ==
LOC: LAB.R 07:00
PROVIDERS: ATTEND Physician Assistant Medical
DX: Q64.9 Congenital malformation of urinary system, unspecified (principal)
CPT/HCPCS: 81001; 81003; 87086

== ENCOUNTER 2019-11-16 13:26 | Emergency (ER) | payer MEDICARE, MEDICAID ==
[2019-11-16 13:33] VITALS: BP 152/96
--- NOTE | 2019-11-16 14:18 | ED Physician Documentation ---
History of Present Illness - Stated complaint Stated Complaint: LAC BEHIND EAR - Chief complaint Chief Complaint: Laceration - History obtained from History obtained from: Patient, Family (mom) - Additonal information Additional information: Most of the history is from the mother. This is a developmentally disabled Young woman who also has some mental illness. She has been scratching at herself and multiple places and have sores. On and off they have been bleeding for a few days. Mom also notes drainage from the right ear. No other acute complaints. Review of Systems Constitutional: reports: Reviewed and negative Ears: reports: Reviewed and negative Nose: reports: Reviewed and negative Throat: reports: Reviewed and negative PD PAST MEDICAL HISTORY - Past Medical History Cardiovascular: Deep vein thrombosis Psych: Schizophrenia - Past Surgical History Past Surgical History: No - Present Medications Home Medications: Ambulatory Orders Medication Instructions Recorded Confirmed OLANZapine [ZyPREXA] 20 mg PO DAILY 01/25/14 01/25/14 Fluoxetine HCl [Prozac] 20 mg ORAL DAILY 07/26/18 07/26/18 Doxepin [SINEquan] 10 mg PO TID PRN #30 capsule 11/16/18 Bacitracin Zinc Oint 1 applic TOP BID #1 tube 11/16/19 Doxepin [SINEquan] 10 mg PO TID PRN #10 capsule 11/16/19 Neomycin/Polymyx/Hc Otic Drops 4 drops OT TID #1 bottle 11/16/19 [Cortisporin Ear Susp] - Allergies Allergies/Adverse Reactions: Allergies Allergy/AdvReac Type Severity Reaction Status Date / Time mirtazapine Allergy Unknown Verified 11/16/19 13:30 - Social History Does the pt smoke?: No Smoking Status: Never smoker Does the pt drink ETOH?: No Does the pt have substance abuse?: No - Immunizations Immunizations are current?: Yes - POLST Patient has POLST: No PD ED PE NORMAL - Vitals Vital signs reviewed: Yes - General General: Other (Nonverbal, inappropriate laughter; Cooperative) - HEENT HEENT: Other (Scratched at shallow hemostatic ulcers on the vertex of the head and on the [place] of the right ear) - Neck Neck: Other (Mild otitis externa on the right) Results - Vitals Vitals: Vital Signs - 24 hr 11/16/19 13:31 Temperature 36.5 C Heart Rate 95 Respiratory 16 Rate Blood Pressure 152/96 H O2 Saturation 99 Oxygen O2 Source Room air PD MEDICAL DECISION MAKING - ED course ED course: 29-year-old woman with developmental delay and mental illness presents having scratched at herself. She has some noninfected lesions. Discussed with mom that the most appropriate thing would be to give her something so she would stop scratching at herself, they will heal fine then. Mom also had multiple nonurgent ancillary complaints such as they missed their appointment with the skinning machine feeder and would like that done today, she wonders if her heart might have problems since she has lupus, I discussed with her that since there were no acute complaints related to these issues she probably needed to follow-up with her PCP for that. Departure - Departure Disposition: Home, Self Care Clinical Impression: Scratches self Otitis externa Qualifiers: Otitis externa type: unspecified type Chronicity: acute Laterality: right Qualified Code(s): H60.501 - Unspecified acute noninfective otitis externa, right ear Condition: Good Record reviewed to determine appropriate education?: Yes Instructions: ED Otitis Externa Ch Prescriptions: Bacitracin Zinc Oint 1 applic TOP BID #1 tube Neomycin/Polymyx/Hc Otic Drops [Cortisporin Ear Susp] 4 drops OT TID #1 bottle Doxepin [SINEquan] 10 mg PO TID PRN #10 capsule PRN Reason: Itching Comments: You can use the bacitracin ointment on the areas where she is scratching herself. The doxepin will help with the itching. And the eardrops on the right only. Follow-up with your doctor next available appointment to discuss wound care and other chronic concerns.
== END 2019-11-16 14:30 | disposition home or self-care (01) ==
LOC: ED 13:26
DX: H60.501 Unspecified acute noninfective otitis externa, right ear (principal); S00.01XA Abrasion of scalp, initial encounter; S00.411A Abrasion of right ear, initial encounter; X83.8XXA Intentional self-harm by other specified means, initial encounter; L98.499 Non-pressure chronic ulcer of skin of other sites with unspecified severity; F79 Unspecified intellectual disabilities
CPT/HCPCS: 99283

== ENCOUNTER 2019-12-22 10:58 | Outpatient (CLI) | payer MEDICARE, MEDICAID | END 2019-12-22 10:59 | disposition critical access hospital (66) | LOC: EMS 10:58 | PROVIDERS: ATTEND Surgery | DX: R42 Dizziness and giddiness (principal); R63.0 Anorexia | CPT/HCPCS: A0425; A0429 ==

== ENCOUNTER 2019-12-22 11:16 | Emergency (ER) | payer MEDICARE, MEDICAID ==
[2019-12-22] MEDS ORDERED: SODIUM CHLORIDE 0.9% 1,000 ML IV STA (11:32)
[2019-12-22] MEDS ORDERED: LORazepam 2 MG/ML VIAL IVP STA (11:42)
[2019-12-22 11:43] LABS: BASOPHILS % (AUTO) 0.4 %; EOSINOPHILS % (AUTO) 0.7 %; HGB - HEMOGLOBIN 13.8 g/dL (12.0-16.0); LYMPHOCYTES # (AUTO) 1.2 10^3/uL (1.5-3.5); LYMPHOCYTES % (AUTO) 26.3 %; MEAN CORPUSCULAR HEMOGLOBIN 30.7 pg (27.0-31.0); MEAN CORPUSCULAR HGB CONC 33.9 g/dL (32.0-36.0); MEAN CORPUSCULAR VOLUME 90.6 fL (81.0-99.0); MEAN PLATELET VOLUME 9.4 fL (7.9-10.8); MONOCYTES # (AUTO) 0.3 10^3/uL (0.0-1.0); MONOCYTES % (AUTO) 7.3 %; NEUTROPHILS # (AUTO) 2.9 10^3/uL (1.5-6.6); NEUTROPHILS % (AUTO) 64.9 %; PLT - PLATELET COUNT 245 10^3/uL (130-450); RED BLOOD COUNT 4.49 10^6/uL (4.20-5.40); RED CELL DISTRIBUTION WIDTH 13.2 % (12.0-15.0); WHITE BLOOD COUNT 4.5 x10^3/uL (4.8-10.8)
[2019-12-22 12:01] LABS: ALBUMIN 4.2 g/dL (3.2-5.5); ALBUMIN/GLOBULIN RATIO 1.1 (1.0-2.2); ALKALINE PHOSPHATASE 62 IU/L (42-121); ALT ALANINE AMINOTRANSFERASE 18 IU/L (10-60); AST ASPARTATE AMINOTRANSFERASE 24 IU/L (10-42); BILIRUBIN,TOTAL 0.6 mg/dL (0.2-1.0); BUN - BLOOD UREA NITROGEN 7 mg/dL (6-20); CALCIUM 9.1 mg/dL (8.5-10.3); CARBON DIOXIDE - CO2 22 mmol/L (21-32); CHLORIDE 102 mmol/L (101-111); CREATININE 0.6 mg/dL (0.4-1.0); GLUCOSE 96 mg/dL (70-100); LIPASE 17 U/L (22-51); SODIUM 138 mmol/L (135-145); TOTAL PROTEIN 8.2 g/dL (6.7-8.2)
[2019-12-22 12:05] LABS: CRP - C-REACTIVE PROTEIN 0.6 mg/dL (0-1.0)
[2019-12-22 12:29] LABS: MUDS CUTOFF CONCENTRATIONS CUTOFF CONC BELOW:
[2019-12-22 12:48] LABS: BILIRUBIN,URINE NEGATIVE (NEGATIVE); GLUCOSE, URINE (UA) NEGATIVE (NEGATIVE); KETONES,URINE (UA) >=80 mg/dL (NEGATIVE); LEUKOCYTE ESTERASE, URINE TRACE (NEGATIVE); NITRITE,URINE NEGATIVE (NEGATIVE); OCCULT BLOOD,URINE NEGATIVE (NEGATIVE); PROTEIN,URINE NEGATIVE (NEGATIVE); UROBILINOGEN,URINE 0.2 (NORMAL) E.U./dL (NORMAL)
[2019-12-22 12:49] LABS: CLARITY,URINE CLEAR (CLEAR); HCG UR QUAL NEGATIVE
[2019-12-22 13:05] LABS: BACTERIA,URINE Many /HPF (None Seen); RBC,URINE 0-5 /HPF (0-5); SQUAMOUS EPITHELIAL CELL,UR MANY Squamous (<= Few)
[2019-12-22 13:08] LABS: AMPHETAMINE SCREEN,URINE NEGATIVE (NEGATIVE); BENZODIAZEPINES SCREEN, URINE NEGATIVE (NEGATIVE); COCAINE SCREEN URINE NEGATIVE (NEGATIVE); METHADONE SCREEN, URINE NEGATIVE (NEGATIVE); METHAMPHETAMINES SCREEN, URINE NEGATIVE (NEGATIVE); OPIATE SCREEN, URINE NEGATIVE (NEGATIVE); OXYCODONE SCREEN, URINE NEGATIVE (NEGATIVE); PROPOXYPHENE SCREEN, URINE NEGATIVE (NEGATIVE); TRICYCLIC ANTIDEPRESSANT,URINE NEGATIVE (NEGATIVE)
--- NOTE | 2019-12-22 14:43 | ED Physician Documentation ---
PD HPI ALTERED MENTAL STATUS - Stated complaint Stated Complaint: DIZZY/WEAK - Chief complaint Chief Complaint: Neuro - History obtained from History obtained from: Family - Additional information Additional information: Patient is brought to the emergency department for altered mental status and chief complaint of dizziness. The patient has a history of severe, debilitating schizophrenia, as well as lupus, and is Unable to offer any coherent history for herself. Mother states that the patient seemed to be not quite acting like herself this morning and was more irritable than usual. She does note that the patient did not eat yesterday and that she does not like to drink water and is very difficult to get the patient to take liquids. Today, the patient complained of dizziness. Mom denies any other complaints from the patient. As far as mom can tell, the patient has not been nauseated. She has not had any respiratory symptoms. No fever or chills as far as mom knows. She is somewhat verbal at home, but requires assistance with most activities of daily living. Review of Systems Unable to obtain: Other (Cognitive compromise) PD PAST MEDICAL HISTORY - Past Medical History Past Medical History: Yes Cardiovascular: Deep vein thrombosis Respiratory: None Neuro: None Endocrine/Autoimmune: None GI: None STOCK PARTS FABRICATOR: None : None HEENT: None Psych: Schizophrenia Musculoskeletal: None Derm: None - Past Surgical History Past Surgical History: No - Present Medications Home Medications: Ambulatory Orders Medication Instructions Recorded Confirmed OLANZapine [ZyPREXA] 15 mg PO DAILY 01/25/14 12/22/19 Fluoxetine HCl [Prozac] 20 mg ORAL DAILY 07/26/18 12/22/19 Mycophenolate Mofetil [Cellcept] 1,000 mg PO BID 12/22/19 12/22/19 - Allergies Allergies/Adverse Reactions: Allergies Allergy/AdvReac Type Severity Reaction Status Date / Time mirtazapine Allergy Unknown Verified 12/22/19 11:22 sulfamethoxazole Allergy Unknown Verified 12/22/19 11:22 [From Bactrim] trimethoprim [From Bactrim] Allergy Unknown Verified 12/22/19 11:22 - Social History Does the pt smoke?: No Smoking Status: Never smoker Does the pt drink ETOH?: No Does the pt have substance abuse?: No - Immunizations Immunizations are current?: Yes - POLST Patient has POLST: No PD ED PE NORMAL - Vitals Vital signs reviewed: Yes - General General: No acute distress, Other (Patient is awake, but nonverbal. She is disheveled.) - HEENT HEENT: Atraumatic, PERRL, EOMI, Moist mucous membranes - Neck Neck: Supple, no meningeal sign - Cardiac Cardiac: RRR, No murmur, Strong equal pulses - Respiratory Respiratory: No respiratory distress, Clear bilaterally - Abdomen Abdomen: Soft, Non tender, Non distended - Derm Derm: Normal color, Warm and dry, No rash - Extremities Extremities: No deformity, No edema - Neuro Neuro: Other (Patient is awake and moves all 4 extremities. She is generally nonverbal, but will occasionally verbalize, mainly to her mother.) - Psych Psych: Other (Does not make eye contact.) Results - Vitals Vitals: Vital Signs - 24 hr 12/22/19 12/22/19 12/22/19 11:22 11:26 12:46 Temperature 36.6 C 36.7 C Heart Rate 97 94 89 Respiratory 20 22 24 Rate Blood Pressure 112/80 109/75 128/112 H O2 Saturation 100 99 100 12/22/19 12/22/19 13:44 15:28 Temperature 36.8 C 36.5 C Heart Rate 88 88 Respiratory 22 16 Rate Blood Pressure 105/78 95/62 O2 Saturation 99 96 Oxygen O2 Source Room air - Labs Labs: Laboratory Tests 12/22/19 12/22/19 12/22/19 11:38 11:38 11:38 WBC 4.5 L RBC 4.49 Hgb 13.8 Hct 40.7 MCV 90.6 MCH 30.7 MCHC 33.9 RDW 13.2 Plt Count 245 MPV 9.4 Neut # (Auto) 2.9 Lymph # (Auto) 1.2 L Yancey # (Auto) 0.3 Eos # (Auto) 0.0 Baso # (Auto) 0.0 Absolute Nucleated RBC 0.00 Nucleated RBC % 0.0 ESR 32 H Sodium 138 Potassium 3.8 Chloride 102 Carbon Dioxide 22 Anion Gap 14.0 H BUN 7 Creatinine 0.6 Estimated GFR (MDRD) 117 Glucose 96 Lactic Acid Calcium 9.1 Total Bilirubin 0.6 AST 24 ALT 18 Alkaline Phosphatase 62 C-Reactive Protein 0.6 Total Protein 8.2 Albumin 4.2 Globulin 4.0 Albumin/Globulin Ratio 1.1 Lipase 17 L Urine Color Urine Clarity Urine pH Ur Specific [place] Urine Protein Urine Glucose (UA) Urine Ketones Urine Occult Blood Urine Nitrite Urine Bilirubin Urine Urobilinogen Ur Leukocyte Esterase Urine RBC Urine WBC Ur Squamous Epith Cells Urine Bacteria Ur Microscopic Review Urine Culture Comments Urine HCG, Qual Urine Opiates Screen Ur Oxycodone Screen Urine Methadone Screen Ur Propoxyphene Screen Ur Barbiturates Screen Ur Tricyclics Screen Ur Phencyclidine Scrn Ur Amphetamine Screen U Methamphetamines Scrn U Benzodiazepines Scrn Urine Cocaine Screen U Cannabinoids Screen Ethyl Alcohol < 5.0 12/22/19 12/22/19 11:38 12:00 WBC RBC Hgb Hct MCV MCH MCHC RDW Plt Count MPV Neut # (Auto) Lymph # (Auto) Yancey # (Auto) Eos # (Auto) Baso # (Auto) Absolute Nucleated RBC Nucleated RBC % ESR Sodium Potassium Chloride Carbon Dioxide Anion Gap BUN Creatinine Estimated GFR (MDRD) Glucose Lactic Acid 1.0 Calcium Total Bilirubin AST ALT Alkaline Phosphatase C-Reactive Protein Total Protein Albumin Globulin Albumin/Globulin Ratio Lipase Urine Color YELLOW Urine Clarity CLEAR Urine pH 8.0 H Ur Specific [place] 1.020 Urine Protein NEGATIVE Urine Glucose (UA) NEGATIVE Urine Ketones >=80 H Urine Occult Blood NEGATIVE Urine Nitrite NEGATIVE Urine Bilirubin NEGATIVE Urine Urobilinogen 0.2 (NORMAL) Ur Leukocyte Esterase TRACE H Urine RBC 0-5 Urine WBC 4-5 Ur Squamous Epith Cells MANY Squamous H Urine Bacteria Many H Ur Microscopic Review INDICATED Urine Culture Comments NOT INDICATED Urine HCG, Qual NEGATIVE Urine Opiates Screen NEGATIVE Ur Oxycodone Screen NEGATIVE Urine Methadone Screen NEGATIVE Ur Propoxyphene Screen NEGATIVE Ur Barbiturates Screen NEGATIVE Ur Tricyclics Screen NEGATIVE Ur Phencyclidine Scrn NEGATIVE Ur Amphetamine Screen NEGATIVE U Methamphetamines Scrn NEGATIVE U Benzodiazepines Scrn NEGATIVE Urine Cocaine Screen NEGATIVE U Cannabinoids Screen NEGATIVE Ethyl Alcohol PD MEDICAL DECISION MAKING - ED course Complexity details: reviewed results, re-evaluated patient, considered differential, d/w family ED course: Patient was given a liter 0.9 normal saline and ate half a burger. She was worked up with laboratory studies and urinalysis and I discussed with mom that these were unremarkable. The patient was quite a bit more alert when I came to reevaluate her, and did make eye contact, though was still minimally verbal. However, she did asked to use the restroom. I discussed with mom patient stable for discharge home, as I have not found an emergent cause of her symptoms today. We discussed the need for follow-up, as well as the usual indications for retur n. Departure - Departure Disposition: 01 Home, Self Care Clinical Impression: Dizziness Altered mental status Qualifiers: Altered mental status type: unspecified Qualified Code(s): R41.82 - Altered mental status, unspecified Condition: Stable Instructions: ED Altered Loc, ED Dizziness UKO Comments: The labs look good, including the urinalysis. Serious or emergent cause of the symptoms. It is very important that Vanessa drinks more water and eats regular meals to prevent her dizziness. Please follow-up with her doctor, as planned. Discharge Date/Time: 12/22/19 15:43
[2019-12-22 15:30] VITALS: BP 95/62
== END 2019-12-22 15:43 | disposition home or self-care (01) ==
LOC: EDUNIT# → EDBD → ED 11:16
DX: R42 Dizziness and giddiness (principal); R41.82 Altered mental status, unspecified; F20.9 Schizophrenia, unspecified
CPT/HCPCS: 36415; 80053; 80306; 81001; 81025; 83605; 83690; 85025; 85651; 86140; 96361; 96374; 99281; 99283; J2060; 80320; 81003; 87086

== ENCOUNTER 2020-01-06 07:00 | Outpatient (CLI) | payer MEDICARE, MEDICAID ==
--- NOTE | 2020-01-06 15:37 | XRAY Report ---
PROCEDURE: Abdomen Acute INDICATIONS: DIFFICULTY BREATHING, ABDOMEN PAIN TECHNIQUE: One view chest and two views of the abdomen were acquired. COMPARISON: Chest x-ray 02/14/2019, 01/05/2019, CT abdomen pelvis 01/05/1990 FINDINGS: Surgical changes and devices: None. Chest: Lungs are clear. Heart size is normal. No pleural effusions. No pneumoperitoneum. Abdomen: Bowel gas pattern demonstrates a few air-fluid levels in nondilated proximal colon. There a re no air-filled dilated small bowel loops. Stool quantity is normal. No suspicious calcifications. Visualized solid organ contours appear normal. Bones: No suspicious bony lesions. IMPRESSION: 1. No acute cardiopulmonary disease. 2. Nonspecific, nonobstructive bowel gas pattern with occasional air-fluid level suggesting enteritis or ileus. 3. No significant stool burden. Reviewed by: Kaitlyn Parmar MD on 01/06/2020 3:36 PM PST Approved by: Kaitlyn Parmar MD on 01/06/2020 3:36 PM PST Station ID: [id number]
== END 2020-01-06 23:59 | disposition home or self-care (01) ==
LOC: DI.WCP 07:00
PROVIDERS: ATTEND Nurse Practitioner
DX: R93.5 Abnormal findings on diagnostic imaging of other abdominal regions, including retroperitoneum (principal)

== ENCOUNTER 2020-03-05 12:32 | Outpatient (CLI) | payer MEDICARE, MEDICAID ==
[2020-03-05 18:43] LABS: BASOPHILS % (AUTO) 0.3 %; EOSINOPHILS # (AUTO) 0.1 10^3/uL (0.0-0.7); EOSINOPHILS % (AUTO) 1.7 %; HGB - HEMOGLOBIN 13.1 g/dL (12.0-16.0); LYMPHOCYTES # (AUTO) 1.9 10^3/uL (1.5-3.5); LYMPHOCYTES % (AUTO) 32.5 %; MEAN CORPUSCULAR HEMOGLOBIN 30.9 pg (27.0-31.0); MEAN CORPUSCULAR HGB CONC 33.4 g/dL (32.0-36.0); MEAN CORPUSCULAR VOLUME 92.5 fL (81.0-99.0); MEAN PLATELET VOLUME 10.3 fL (7.9-10.8); MONOCYTES # (AUTO) 0.4 10^3/uL (0.0-1.0); MONOCYTES % (AUTO) 7.1 %; NEUTROPHILS # (AUTO) 3.4 10^3/uL (1.5-6.6); NEUTROPHILS % (AUTO) 58.2 %; PLT - PLATELET COUNT 323 10^3/uL (130-450); RED BLOOD COUNT 4.24 10^6/uL (4.20-5.40); RED CELL DISTRIBUTION WIDTH 13.8 % (12.0-15.0); WHITE BLOOD COUNT 5.8 x10^3/uL (4.8-10.8)
[2020-03-05 19:22] LABS: ALBUMIN 4.3 g/dL (3.2-5.5); ALBUMIN/GLOBULIN RATIO 1.1 (1.0-2.2); BILIRUBIN,TOTAL 0.6 mg/dL (0.2-1.0); CALCIUM 9.6 mg/dL (8.5-10.3); CREATININE 0.8 mg/dL (0.4-1.0); CRP - C-REACTIVE PROTEIN 1.1 mg/dL (0-1.0); TOTAL PROTEIN 8.3 g/dL (6.7-8.2)
== END 2020-03-05 23:59 | disposition home or self-care (01) ==
LOC: LAB.WCP 12:32
PROVIDERS: ATTEND Nurse Practitioner
DX: L08.9 Local infection of the skin and subcutaneous tissue, unspecified (principal); M32.9 Systemic lupus erythematosus, unspecified; D51.9 Vitamin B12 deficiency anemia, unspecified; Z86.718 Personal history of other venous thrombosis and embolism; E87.6 Hypokalemia; Z78.9 Other specified health status
CPT/HCPCS: 36415; 80053; 84443; 85025; 85651; 86140

== ENCOUNTER 2021-01-23 14:37 | Emergency (ER) | payer MEDICARE, MEDICAID ==
[2021-01-23 15:17] LABS: BASOPHILS % (AUTO) 0.5 %; HCT - HEMATOCRIT 37.4 % (37.0-47.0); HGB - HEMOGLOBIN 12.4 g/dL (12.0-16.0); LYMPHOCYTES % (AUTO) 45.2 %; MEAN CORPUSCULAR HEMOGLOBIN 30.5 pg (27.0-31.0); MEAN CORPUSCULAR HGB CONC 33.2 g/dL (32.0-36.0); MEAN CORPUSCULAR VOLUME 91.9 fL (81.0-99.0); MEAN PLATELET VOLUME 9.4 fL (7.9-10.8); MONOCYTES % (AUTO) 9.1 %; PLT - PLATELET COUNT 286 10^3/uL (130-450); RED BLOOD COUNT 4.07 10^6/uL (4.20-5.40); RED CELL DISTRIBUTION WIDTH 13.8 % (12.0-15.0); WHITE BLOOD COUNT 4.1 x10^3/uL (4.8-10.8)
[2021-01-23 15:22] LABS: ABNORMAL LYMPHS % (MANUAL) 0 %
[2021-01-23 15:29] LABS: ALBUMIN 3.8 g/dL (3.2-5.5); ALBUMIN/GLOBULIN RATIO 0.8 (1.0-2.2); BILIRUBIN,TOTAL 1.3 mg/dL (0.2-1.0); CALCIUM 9.1 mg/dL (8.5-10.3); CREATININE 0.8 mg/dL (0.4-1.0); POTASSIUM 4.1 mmol/L (3.5-5.0); TOTAL PROTEIN 8.5 g/dL (6.7-8.2)
--- NOTE | 2021-01-23 15:51 | ED Physician Documentation ---
History of Present Illness - Stated complaint Stated Complaint: NOT EATING - Chief complaint Chief Complaint: General - Additonal information Additional information: 30-year-old female who has a history of autism and is developmentally delayed is brought to the emergency department by her mom for concerns that she is only drinking juice but has not been eating meals well. This has been ongoing now for about 5 days. Mom denies that she has been having any fevers nausea vomiting or diarrhea. No complaints of abdominal pain. The other major concern for mom is that Vanessa has been using marleny pins to clean her ears. She was seen at a local walk-in clinic a few days ago and found to have a perforated left tympanic membrane. Amoxicillin was prescribed for this. It was prescribed 3 times a day but mom states she can only give it twice a day as she does nto want to There is a chronic wound on the top of her head where Vanessa often is scratches. She applies mupirocin to the wound but only when Vanessa will allow her to do it. she sometimes slaps her hand away the patient overall appears well cared for Review of Systems Constitutional: denies: Fever, Chills Ears: reports: Loss of hearing, Ear pain, Drainage/discharge Nose: reports: Reviewed and negative Throat: reports: Reviewed and negative Cardiac: reports: Reviewed and negative Respiratory: reports: Reviewed and negative GI: reports: Other (Loss of appetite) : reports: Reviewed and negative Skin: reports: Lesions (Chronic wounds on the top of her head). denies: Rash Musculoskeletal: reports: Reviewed and negative Neurologic: reports: Reviewed and negative PD PAST MEDICAL HISTORY - Past Medical History Cardiovascular: Deep vein thrombosis Respiratory: None Neuro: None Endocrine/Autoimmune: None GI: None OPTICS TECHNICAL OFFICER: None : None HEENT: None Psych: Schizophrenia Musculoskeletal: None Derm: None - Past Surgical History Past Surgical History: No - Present Medications Home Medications: Ambulatory Orders Medication Instructions Recorded Confirmed OLANZapine [ZyPREXA] 15 mg PO DAILY 01/25/14 12/22/19 Fluoxetine HCl [Prozac] 20 mg ORAL DAILY 07/26/18 12/22/19 Mycophenolate Mofetil [Cellcept] 1,000 mg PO BID 12/22/19 12/22/19 - Allergies Allergies/Adverse Reactions: Allergies Allergy/AdvReac Type Severity Reaction Status Date / Time mirtazapine Allergy Unknown Verified 11/27/21 14:56 sulfamethoxazole Allergy Unknown Verified 01/23/21 14:56 [From Bactrim] trimethoprim [From Bactrim] Allergy Unknown Verified 01/23/21 14:56 - Social History Does the pt smoke?: No Smoking Status: Never smoker Does the pt drink ETOH?: No Does the pt have substance abuse?: No - Immunizations Immunizations are current?: Yes - POLST Patient has POLST: No PD ED PE EXPANDED - General General: Alert, No acute distress, Well developed/nourished - HEENT HEENT: Moist mucous membranes. No: Ears normal (Left TM is perforated with a small amount of mucopurulent drainage seen in ear canal. The ear canal is generally inflamed though not obstructed. The right TM is intact. Only mild erythema seen in the ear canal) - Cardiac Cardiac: Regular Rate, Radial strong equal, Pedal strong equal, Cap refill < 2 sec - Respiratory Respiratory: Clear to ausultation fely. No: Distress, Labored - Abdomen Abdomen: Normal Bowel sounds. No: Tender to palpation - Derm Derm: Rash (Chronic appearing rash on her face), Other (Superficial scabbing on the top of the occiput with yellow honey crusting exudate. Minimal surrounding erythema. The hair patch is bald in this area.) - Extremities Extremities: Normal. No: Deformity, Tenderness - Neuro Neuro: CNII-XII intact - GCS Eye Opening: Spontaneous Motor: Obeys Commands Verbal: Incomprehensible Total: 12 Results - Vitals Vitals: Vital Signs - 24 hr 01/23/21 01/23/21 01/23/21 14:47 14:57 16:07 Temperature 36.5 C Heart Rate 96 81 80 Respiratory 16 20 Rate Blood Pressure 110/71 95/70 94/66 O2 Saturation 100 98 100 Oxygen O2 Source Room air - Labs Labs: Laboratory Tests 01/23/21 01/23/21 01/23/21 15:00 15:05 15:05 WBC 4.1 L RBC 4.07 L Hgb 12.4 Hct 37.4 MCV 91.9 MCH 30.5 MCHC 33.2 RDW 13.8 Plt Count 286 MPV 9.4 Neut # (Auto) Not Reportable Lymph # (Auto) Not Reportable [place] # (Auto) Not Reportable Eos # (Auto) Not Reportable Baso # (Auto) Not Reportable Absolute Nucleated RBC Not Reportable Total Counted 100 Band Neuts % (Manual) 1 Abnorm Lymph % (Manual) 0 Nucleated RBC % Not Reportable Neutrophils # (Manual) 2.0 Lymphocytes # (Manual) 1.8 Monocytes # (Manual) 0.3 Eosinophils # (Manual) 0.0 Basophils # (Manual) 0.0 Differential Comment MANUAL DIFFERENTIAL WBC Morphology NORMAL APPEARANCE Platelet Estimate NORMAL (130-450,000) Platelet Morphology NORMAL APPEARANCE RBC Morph Micro Appear NORMAL APPEARANCE Sodium 137 Potassium 4.1 Chloride 103 Carbon Dioxide 24 Anion Gap 10.0 BUN 7 Creatinine 0.8 Estimated GFR (MDRD) 84 L Glucose 105 H Calcium 9.1 Total Bilirubin 1.3 H AST 24 ALT 13 Alkaline Phosphatase 45 Total Protein 8.5 H Albumin 3.8 Globulin 4.7 H Albumin/Globulin Ratio 0.8 L Lipase 29 Urine Color YELLOW Urine Clarity CLEAR Urine pH 6.0 Ur Specific [place] 1.025 Urine Protein NEGATIVE Urine Glucose (UA) NEGATIVE Urine Ketones 15 H Urine Occult Blood NEGATIVE Urine Nitrite NEGATIVE Urine Bilirubin NEGATIVE Urine Urobilinogen 4 H Ur Leukocyte Esterase NEGATIVE Ur Microscopic Review NOT INDICATED Urine Culture Comments NOT INDICATED PD MEDICAL DECISION MAKING - ED course Complexity details: reviewed results, re-evaluated patient, considered differential, d/w patient ED course: 30-year-old female who has a history of autism as well as a developmental delay is brought to the ER by her mom who reports that she does not want to eat foods over the last week or so. She is however drinking juice well. Mom has multiple concerns that include a chronic scabbing lesion on the top of her occiput as well as requesting reevaluation of bilateral ears for which she was previously diagnosed with a ruptured TM. On exam the patient appears very well cared for. She is well-hydrated. Cardiopulmonary and abdominal exam is unremarkable. No tenderness was elicited. Mom denies that the patient is having fevers vomiting or diarrhea. Screening labs do not show any acute worrisome abnormalities. Urine is without signs of infection. With regards to the poor oral intake Advised mom to mix her juice with water to help ensure hydration. I have also encouraged her to use Ensure as she states that Vanessa will drink that at home. She asked if it was okay to feed her lumpia and I encouraged her to feed her any food that she felt her daughter would eat. The left TM rupture has been previously addressed by a walk-in clinic provider and the patient is to continue the amoxicillin. Of also encouraged the mom to continue using the importance and on the top of the head where she has chronic lesion from skin picking. Overall there is no acute medical concern presenting today. Continue follow-up with primary care provider. Emergent return precautions were discussed. Departure - Departure Disposition: 01 Home, Self Care Clinical Impression: Poor eating habits, Skin lesion of scalp Traumatic rupture of left ear drum Qualifiers: Encounter type: initial encounter Qualified Code(s): S09.22XA - Traumatic rupture of left ear drum, initial encounter Condition: Stable Record reviewed to determine appropriate education?: Yes Follow-Up: Mile Thakkar DO [Primary Care Provider] - Comments: Vanessa's lab work today is all without any concerning findings. It is es sentially normal. Please continue to use the most porcelain ointment on the scalp lesion. You may have to apply this 2-3 times a day. Continue to give her the amoxicillin previously prescribed by the walk-in doctor for the ruptured left eardrum. It is okay to give it only twice a day if that is as often as you are able to give it. Vanessa should be encouraged to eat whichever foods that she will. You can feed her Lumpia if she likes. I encourage you to mix her juice with water to help make sure she stays well-hydrated. Feeding her a can or 2 of Ensure a day is also a good way to help maintain her nutrition.
[2021-01-23 15:59] LABS: BILIRUBIN,URINE NEGATIVE (NEGATIVE); GLUCOSE, URINE (UA) NEGATIVE (NEGATIVE); KETONES,URINE (UA) 15 mg/dL (NEGATIVE); LEUKOCYTE ESTERASE, URINE NEGATIVE (NEGATIVE); NITRITE,URINE NEGATIVE (NEGATIVE); OCCULT BLOOD,URINE NEGATIVE (NEGATIVE); PROTEIN,URINE NEGATIVE (NEGATIVE); UROBILINOGEN,URINE 4 E.U./dL (NORMAL)
[2021-01-23 16:04] LABS: CLARITY,URINE CLEAR (CLEAR)
[2021-01-23 16:11] LABS: BAND NEUTROPHILS % (MANUAL) 1 %; DIFFERENTIAL COMMENT MANUAL DIFFERENTIAL; LYMPHOCYTES # (MANUAL) 1.8 10^3/uL (1.5-3.5); LYMPHOCYTES % (MANUAL) 43 %; MONOCYTES # (MANUAL) 0.3 10^3/uL (0.0-1.0); PLATELET ESTIMATE, MANUAL NORMAL (130-450,000) (NORMAL); PLATELET MORPHOLOGY NORMAL APPEARANCE (NORMAL); RBC MORPHOLOGY (MULTIPLE) NORMAL APPEARANCE (NORMAL); WBC MORPHOLOGY (MULTIPLE) NORMAL APPEARANCE (NORMAL)
[2021-01-23 16:44] VITALS: BP 99/60
== END 2021-01-23 16:44 | disposition home or self-care (01) ==
LOC: ED 14:37
DX: F50.9 Eating disorder, unspecified (principal); L98.8 Other specified disorders of the skin and subcutaneous tissue; F63.89 Other impulse disorders; S09.22XA Traumatic rupture of left ear drum, initial encounter; X58.XXXA Exposure to other specified factors, initial encounter; F84.0 Autistic disorder; F89 Unspecified disorder of psychological development
CPT/HCPCS: 36415; 80053; 81001; 81003; 83690; 85025; 87086; 99282; 99283

== ENCOUNTER 2022-01-30 09:31 | Emergency (ER) | payer MEDICARE, MEDICAID ==
[2022-01-30] MEDS ORDERED: SODIUM CHLORIDE 0.9% 1,000 ML IV STA (10:00)
[2022-01-30] MEDS ORDERED: DOXEPIN 10 MG CAPSULE PO STA (10:00)
--- NOTE | 2022-01-30 10:02 | ED Physician Documentation ---
History of Present Illness - Stated complaint Stated Complaint: HEAD PX/SOA - Chief complaint Chief Complaint: General - History obtained from History obtained from: Family - Additonal information Additional information: 31-year-old woman who has severe schizophrenia and lives with her parents presents accompanied by her parents for the evaluation of scalp wounds. The scalp wounds are chronic and related to self picking which has never really been primarily addressed. When they get bad she is usually prescribed antibiotics which are helpful but over the last 3 days has not been eating or drinking and states that the patient is still taking her Zyprexa but not taking the antibiotic or eating or drinking. The patient is unable to give any history specifically because of her schizophrenia which is chronic. 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 SPRAY GUN: None : None HEENT: None Psych: Schizophrenia Musculoskeletal: None Derm: None - Past Surgical History Past Surgical History: No - Present Medications Home Medications: Ambulatory Orders Medication Instructions Recorded Confirmed OLANZapine [ZyPREXA] 15 mg PO DAILY 01/25/14 12/22/19 Fluoxetine HCl [Prozac] 20 mg ORAL DAILY 07/26/18 12/22/19 Mycophenolate Mofetil [Cellcept] 1,000 mg PO BID 12/22/19 12/22/19 Doxepin [SINEquan] 10 mg PO TID PRN #30 cap 01/30/22 - Allergies Allergies/Adverse Reactions: Allergies Allergy/AdvReac Type Severity Reaction Status Date / Time mirtazapine Allergy Unknown Verified 01/30/22 09:48 sulfamethoxazole Allergy Unknown Verified 01/30/22 09:48 [From Bactrim] trimethoprim [From Bactrim] Allergy Unknown Verified 01/30/22 09:48 - Social History Does the pt smoke?: No Smoking Status: Never smoker Does the pt drink ETOH?: No Does the pt have substance abuse?: No - Immunizations Immunizations are current?: Yes - POLST Patient has POLST: No PD ED PE NORMAL - Vitals Vital signs reviewed: Yes - General General: Other (She is a nonverbal frail-appearing schizophrenic who is for the most part hiding under a blanket) - HEENT HEENT: PERRL, EOMI, Other (Severe denuded picked at skin lesions on the face and scalp with may be mild superinfection, alopecia and areas from the picking.) - Neck Neck: Supple, no meningeal sign, No bony TTP - Cardiac Cardiac: RRR, No murmur - Respiratory Respiratory: No respiratory distress, Clear bilaterally - Abdomen Abdomen: Non tender - Back Back: No CVA TTP, No spinal TTP - Derm Derm: Normal color, Warm and dry - Psych Psych: Other (Poor eye contact, nonverbal) Results - Vitals Vitals: Vital Signs - 24 hr 01/30/22 01/30/22 01/30/22 09:35 10:19 12:15 Temperature 37.1 C Heart Rate 108 H 95 Respiratory 24 20 20 Rate Blood Pressure 97/69 104/74 92/68 O2 Saturation 97 100 01/30/22 14:00 Temperature Heart Rate 100 Respiratory 20 Rate Blood Pressure 111/64 O2 Saturation 100 Oxygen O2 Source Room air - Labs Labs: Laboratory Tests 01/30/22 01/30/22 01/30/22 10:13 10:13 10:13 WBC 6.1 RBC 4.08 L Hgb 11.9 L Hct 36.0 L MCV 88.2 MCH 29.2 MCHC 33.1 RDW 14.1 Plt Count 177 MPV 10.5 Neut # (Auto) 4.7 Lymph # (Auto) 0.9 L [place] # (Auto) 0.5 Eos # (Auto) 0.0 Baso # (Auto) 0.0 Absolute Nucleated RBC 0.00 Nucleated RBC % 0.0 Manual Slide Review Indicated RBC Morph Micro Appear 2+ ANISOCYTOSIS Sodium 136 Potassium 3.9 Chloride 101 Carbon Dioxide 23 Anion Gap 12.0 BUN 13 Creatinine 0.6 Estimated GFR (MDRD) 116 Glucose 107 H Calcium 8.2 L Total Bilirubin 0.6 AST 120 H ALT 30 Alkaline Phosphatase 37 L Total Protein 7.9 Albumin 3.5 Globulin 4.4 H Albumin/Globulin Ratio 0.8 L Lipase 27 TSH 1.07 Urine Color Urine Clarity Urine pH Ur Specific [place] Urine Protein Urine Glucose (UA) Urine Ketones Urine Occult Blood Urine Nitrite Urine Bilirubin Urine Urobilinogen Ur Leukocyte Esterase Ur Microscopic Review Urine Culture Comments Urine HCG, Qual Salicylates < 6.0 Urine Opiates Screen Ur Oxycodone Screen Urine Methadone Screen Ur Propoxyphene Screen Acetaminophen < 10 L Ur Barbiturates Screen Ur Tricyclics Screen Ur Phencyclidine Scrn Ur Amphetamine Screen U Methamphetamines Scrn U Benzodiazepines Scrn Urine Cocaine Screen U Cannabinoids Screen Ethyl Alcohol < 5.0 01/30/22 01/30/22 12:07 12:07 WBC RBC Hgb Hct MCV MCH MCHC RDW Plt Count MPV Neut # (Auto) Lymph # (Auto) [place] # (Auto) Eos # (Auto) Baso # (Auto) Absolute Nucleated RBC Nucleated RBC % Manual Slide Review RBC Morph Micro Appear Sodium Potassium Chloride Carbon Dioxide Anion Gap BUN Creatinine Estimated GFR (MDRD) Glucose Calcium Total Bilirubin AST ALT Alkaline Phosphatase Total Protein Albumin Globulin Albumin/Globulin Ratio Lipase TSH Urine Color YELLOW Urine Clarity CLEAR Urine pH 6.0 Ur Specific [place] 1.020 Urine Protein TRACE Urine Glucose (UA) NEGATIVE Urine Ketones 40 H Urine Occult Blood NEGATIVE Urine Nitrite NEGATIVE Urine Bilirubin NEGATIVE Urine Urobilinogen 0.2 (NORMAL) Ur Leukocyte Esterase NEGATIVE Ur Microscopic Review NOT INDICATED Urine Culture Comments NOT INDICATED Urine HCG, Qual NEGATIVE Salicylates Urine Opiates Screen NEGATIVE Ur Oxycodone Screen NEGATIVE Urine Methadone Screen NEGATIVE Ur Propoxyphene Screen NEGATIVE Acetaminophen Ur Barbiturates Screen NEGATIVE Ur Tricyclics Screen NEGATIVE Ur Phencyclidine Scrn NEGATIVE Ur Amphetamine Screen NEGATIVE U Methamphetamines Scrn NEGATIVE U Benzodiazepines Scrn NEGATIVE Urine Cocaine Screen NEGATIVE U Cannabinoids Screen NEGATIVE Ethyl Alcohol PD MEDICAL DECISION MAKING - ED course ED course: 31-year-old woman with poorly controlled psychosis related to schizophrenia presents with multiple wounds about the head and face from self picking and scratching. The parents were mostly worried about the Wounds themselves, but the underlying pathophysiology is actually the decompensated psychosis. We trialed some doxepin, and for maybe an hour she actually stopped picking and scratching at them, but then quickly started scratching at them again and could not be redirected. This was followed by some [place] and the parents were agreeable to voluntary psychiatric hospitalization. That said after waiting for telepsychiatric consultation the parents changed their mind and wanted to be discharged. I reiterated at the bedside that I recommended psychiatric hospitalization but there is no and for involuntary status, they are persistent that they like to take her home with some medication for itching and I have prescribed doxepin for same. They understand they are welcome return anytime if worse and plan to follow-up with dermatology, I stressed that as or more important would be follow-up with psychiatry. Departure - Departure Disposition: 01 Home, Self Care Clinical Impression: Scratches self Psychosis Qualifiers: Psychosis type: schizophrenia Schizophrenia type: disorganized schizophrenia Qualified Code(s): F20.1 - Disorganized schizophrenia Open scalp wound Qualifiers: Encounter type: initial encounter Open wound type: unspecified Qualified Code(s): S01.00XA - Unspecified open wound of scalp, initial encounter Condition: Good Record reviewed to determine appropriate education?: Yes Prescriptions: Doxepin [SINEquan] 10 mg PO TID PRN #30 cap PRN Reason: Itching Comments: I sent your prescription electronically to [facility] in [place]. I have recommended that Vanessa be hospitalized for stabilization of her severe psychosis, you have declined this and instead plan to follow-up with dermatology and I also recommend that you follow-up with a psychiatrist. I am prescribing a medication for itching that will hopefully keep her from scratching at herself.. Return for new or worsening symptoms. Forms: Activity restrictions
[2022-01-30 10:21] LABS: BASOPHILS % (AUTO) 0.2 %; HGB - HEMOGLOBIN 11.9 g/dL (12.0-16.0); LYMPHOCYTES # (AUTO) 0.9 10^3/uL (1.5-3.5); LYMPHOCYTES % (AUTO) 14.6 %; MEAN CORPUSCULAR HEMOGLOBIN 29.2 pg (27.0-31.0); MEAN CORPUSCULAR HGB CONC 33.1 g/dL (32.0-36.0); MEAN CORPUSCULAR VOLUME 88.2 fL (81.0-99.0); MEAN PLATELET VOLUME 10.5 fL (7.9-10.8); MONOCYTES # (AUTO) 0.5 10^3/uL (0.0-1.0); MONOCYTES % (AUTO) 7.4 %; NEUTROPHILS # (AUTO) 4.7 10^3/uL (1.5-6.6); NEUTROPHILS % (AUTO) 77.5 %; PLT - PLATELET COUNT 177 10^3/uL (130-450); RED BLOOD COUNT 4.08 10^6/uL (4.20-5.40); RED CELL DISTRIBUTION WIDTH 14.1 % (12.0-15.0); WHITE BLOOD COUNT 6.1 x10^3/uL (4.8-10.8)
[2022-01-30 10:38] LABS: SLIDE REVIEW? Indicated
[2022-01-30 10:56] LABS: ACETAMINOPHEN < 10 ug/mL (10-30); ALBUMIN 3.5 g/dL (3.2-5.5); ALBUMIN/GLOBULIN RATIO 0.8 (1.0-2.2); ALKALINE PHOSPHATASE 37 IU/L (42-121); ALT ALANINE AMINOTRANSFERASE 30 IU/L (10-60); AST ASPARTATE AMINOTRANSFERASE 120 IU/L (10-42); BILIRUBIN,TOTAL 0.6 mg/dL (0.2-1.0); BUN - BLOOD UREA NITROGEN 13 mg/dL (6-20); CALCIUM 8.2 mg/dL (8.5-10.3); CARBON DIOXIDE - CO2 23 mmol/L (21-32); CHLORIDE 101 mmol/L (101-111); CREATININE 0.6 mg/dL (0.4-1.0); ETOH - ETHANOL < 5.0 mg/dL; GFR - MDRD 116 (>89); GLUCOSE 107 mg/dL (70-100); LIPASE 27 U/L (22-51); POTASSIUM 3.9 mmol/L (3.5-5.0); SALICYLATE < 6.0 mg/dL; SODIUM 136 mmol/L (135-145); TOTAL PROTEIN 7.9 g/dL (6.7-8.2)
[2022-01-30 11:06] LABS: RBC MORPHOLOGY (MULTIPLE) 2+ ANISOCYTOSIS (NORMAL)
[2022-01-30] MEDS ORDERED: HALOPERIDOL 5 MG/ML VIAL IVP STA (11:32)
[2022-01-30 12:20] LABS: MUDS CUTOFF CONCENTRATIONS CUTOFF CONC BELOW:
[2022-01-30 12:28] LABS: BILIRUBIN,URINE NEGATIVE (NEGATIVE); GLUCOSE, URINE (UA) NEGATIVE (NEGATIVE); KETONES,URINE (UA) 40 mg/dL (NEGATIVE); LEUKOCYTE ESTERASE, URINE NEGATIVE (NEGATIVE); NITRITE,URINE NEGATIVE (NEGATIVE); OCCULT BLOOD,URINE NEGATIVE (NEGATIVE); PROTEIN,URINE TRACE mg/dL (NEGATIVE); UROBILINOGEN,URINE 0.2 (NORMAL) E.U./dL (NORMAL)
[2022-01-30 12:30] LABS: CLARITY,URINE CLEAR (CLEAR); HCG UR QUAL NEGATIVE
[2022-01-30 12:40] LABS: AMPHETAMINE SCREEN,URINE NEGATIVE (NEGATIVE); BARBITURATE SCREEN,UR NEGATIVE (NEGATIVE); BENZODIAZEPINES SCREEN, URINE NEGATIVE (NEGATIVE); COCAINE SCREEN URINE NEGATIVE (NEGATIVE); METHADONE SCREEN, URINE NEGATIVE (NEGATIVE); METHAMPHETAMINES SCREEN, URINE NEGATIVE (NEGATIVE); OPIATE SCREEN, URINE NEGATIVE (NEGATIVE); OXYCODONE SCREEN, URINE NEGATIVE (NEGATIVE); PROPOXYPHENE SCREEN, URINE NEGATIVE (NEGATIVE); THC CANNABINOID SCREEN, URINE NEGATIVE (NEGATIVE); TRICYCLIC ANTIDEPRESSANT,URINE NEGATIVE (NEGATIVE)
[2022-01-30 14:01] VITALS: BP 111/64
== END 2022-01-30 14:31 | disposition home or self-care (01) ==
LOC: ED 09:31
DX: F20.1 Disorganized schizophrenia (principal); S01.00XA Unspecified open wound of scalp, initial encounter; X58.XXXA Exposure to other specified factors, initial encounter
CPT/HCPCS: 36415; 80053; 80306; 80307; 81003; 81025; 83690; 84443; 85025; 96374; 99281; 99283; A9270; G0480; 80320; 80329; 81001; 87086

== ENCOUNTER 2022-03-01 10:46 | Outpatient (CLI) | payer MEDICARE, MEDICAID | END 2022-03-01 10:47 | disposition critical access hospital (66) | LOC: EMS 10:46 | DX: R45.88 Nonsuicidal self-harm (principal); S01.80XA Unspecified open wound of other part of head, initial encounter; S21.002A Unspecified open wound of left breast, initial encounter; S11.90XA Unspecified open wound of unspecified part of neck, initial encounter; S31.000A Unspecified open wound of lower back and pelvis without penetration into retroperitoneum, initial encounter; S21.209A Unspecified open wound of unspecified back wall of thorax without penetration into thoracic cavity, initial encounter; S41.102A Unspecified open wound of left upper arm, initial encounter; S41.101A Unspecified open wound of right upper arm, initial encounter; S81.802A Unspecified open wound, left lower leg, initial encounter; S81.801A Unspecified open wound, right lower leg, initial encounter; X83.8XXA Intentional self-harm by other specified means, initial encounter | CPT/HCPCS: A0425; A0427 ==

== ENCOUNTER 2022-03-01 11:18 | Emergency (ER) | payer MEDICARE, MEDICAID ==
[2022-03-01] MEDS ORDERED: diphenhydrAMINE INJ 50 MG/ML VIAL IVP STA (11:26)
[2022-03-01] MEDS ORDERED: OLANZapine 10 MG VIAL IM STA (11:26)
--- NOTE | 2022-03-01 11:50 | ED Physician Documentation ---
History of Present Illness - Stated complaint Stated Complaint: MHE/HEAD INJURY - Chief complaint Chief Complaint: Wound - History obtained from History obtained from: Family (Patient's mother, Tagalog science interpreter used) - Additonal information Additional information: Patient is a 31-year-old presenting for evaluation of multiple wounds to scalp and face due to patient picking at her skin.These wounds are chronic And mother reports that scalp wounds have been present for least a year. She has had a several presentations to local emergency departments for evaluation of these wounds and had a hospitalization at [facility] in January for 6 days For treatment of the wounds.Patient has a history of schizophrenia. She is on Zyprexa. Per her mother she has been taking Zyprexa. She is also currently on amoxicillin.Patient is not able to provide any history due to her chronic medical conditions. Review of Systems Unable to obtain: Uncooperative PD PAST MEDICAL HISTORY - Past Medical History Cardiovascular: Deep vein thrombosis Respiratory: None Neuro: None Endocrine/Autoimmune: None GI: None ASSISTANT PARALEGAL: None : None HEENT: None Psych: Schizophrenia Musculoskeletal: None Derm: None - Past Surgical History Past Surgical History: No - Present Medications Home Medications: Ambulatory Orders Medication Instructions Recorded Confirmed OLANZapine [ZyPREXA] 15 mg PO DAILY 01/25/14 12/22/19 Fluoxetine HCl [Prozac] 20 mg ORAL DAILY 07/26/18 12/22/19 Mycophenolate Mofetil [Cellcept] 1,000 mg PO BID 12/22/19 12/22/19 Doxepin [SINEquan] 10 mg PO TID PRN #30 cap 01/30/22 Amoxicillin/Potassium Clav 500 mg PO TID 5 Days #150 ml 02/12/22 [Augmentin 250-62.5 mg/5 ml] FLUoxetine [PROzac] 10 mg PO DAILY #30 cap 02/12/22 - Allergies Allergies/Adverse Reactions: Allergies Allergy/AdvReac Type Severity Reaction Status Date / Time mirtazapine Allergy Unknown Verified 02/12/22 09:55 sulfamethoxazole Allergy Unknown Verified 02/12/22 09:55 [From Bactrim] trimethoprim [From Bactrim] Allergy Unknown Verified 02/12/22 09:55 - Social History Does the pt smoke?: No Smoking Status: Never smoker Does the pt drink ETOH?: No Does the pt have substance abuse?: No - Immunizations Immunizations are current?: Yes - POLST Patient has POLST: No PD ED PE NORMAL - General General: Other (Frail, chronically ill-appearing, alert) - HEENT HEENT: PERRL, EOMI, Other (Large areas of abraded skin to chin and scalp, patchy areas of hair loss to scalp; Patient is rubbing and picking at these areas) - Cardiac Cardiac: RRR, No murmur - Respiratory Respiratory: No respiratory distress - Abdomen Abdomen: Soft, Non tender - Extremities Extremities: No edema Results - Vitals Vitals: Vital Signs - 24 hr 03/01/22 03/01/22 03/01/22 11:13 14:12 15:25 Temperature 36.9 C Heart Rate 109 H 105 H 102 H Respiratory 19 16 21 Rate Blood Pressure 106/68 110/70 99/62 O2 Saturation 97 100 98 03/01/22 19:36 Temperature Heart Rate 99 Respiratory 19 Rate Blood Pressure 105/57 L O2 Saturation 99 Oxygen O2 Source Room air - Labs Labs: Laboratory Tests 03/01/22 03/01/22 03/01/22 12:05 12:05 12:05 WBC 6.8 RBC 2.62 L Hgb 7.5 L Hct 24.0 L MCV 91.6 MCH 28.6 MCHC 31.3 L RDW 18.1 H Plt Count 182 MPV 11.1 H Neut # (Auto) Not Reportable Lymph # (Auto) Not Reportable [place] # (Auto) Not Reportable Eos # (Auto) Not Reportable Baso # (Auto) Not Reportable Absolute Nucleated RBC Not Reportable Total Counted 100 Band Neuts % (Manual) 6 Reactive Lymphs % (Man) 1 Abnorm Lymph % (Manual) 0 Myelocytes % 1 H Nucleated RBC % Not Reportable Neutrophils # (Manual) 5.7 Lymphocytes # (Manual) 0.8 L Monocytes # (Manual) 0.2 Eosinophils # (Manual) 0.0 Basophils # (Manual) 0.0 Differential Comment MANUAL DIFFERENTIAL Manual Slide Review Indicated Sodium 138 Potassium 3.5 Chloride 102 Carbon Dioxide 25 Anion Gap 11.0 BUN 7 Creatinine 0.6 Estimated GFR (MDRD) 116 Glucose 134 H Calcium 7.4 L Total Bilirubin 0.5 AST 43 H ALT 25 Alkaline Phosphatase 53 Total Protein 6.2 L Albumin 2.7 L Globulin 3.5 Albumin/Globulin Ratio 0.8 L Lipase 35 TSH 2.01 Urine Color Urine Clarity Urine pH Ur Specific [place] Urine Protein Urine Glucose (UA) Urine Ketones Urine Occult Blood Urine Nitrite Urine Bilirubin Urine Urobilinogen Ur Leukocyte Esterase Ur Microscopic Review Urine Culture Comments Urine HCG, Qual Salicylates < 6.0 Urine Opiates Screen Ur Oxycodone Screen Urine Methadone Screen Ur Propoxyphene Screen Acetaminophen < 10 L Ur Barbiturates Screen Ur Tricyclics Screen Ur Phencyclidine Scrn Ur Amphetamine Screen U Methamphetamines Scrn U Benzodiazepines Scrn Urine Cocaine Screen U Cannabinoids Screen Ethyl Alcohol < 5.0 SARS-CoV-2 (PCR) 03/01/22 03/01/22 03/01/22 12:42 14:09 14:15 WBC RBC Hgb 8.1 L Hct 26.0 L MCV MCH MCHC RDW Plt Count MPV Neut # (Auto) Lymph # (Auto) [place] # (Auto) Eos # (Auto) Baso # (Auto) Absolute Nucleated RBC Total Counted Band Neuts % (Manual) Reactive Lymphs % (Man) Abnorm Lymph % (Manual) Myelocytes % Nucleated RBC % Neutrophils # (Manual) Lymphocytes # (Manual) Monocytes # (Manual) Eosinophils # (Manual) Basophils # (Manual) Differential Comment Manual Slide Review Sodium Potassium Chloride Carbon Dioxide Anion Gap BUN Creatinine Estimated GFR (MDRD) Glucose Calcium Total Bilirubin AST ALT Alkaline Phosphatase Total Protein Albumin Globulin Albumin/Globulin Ratio Lipase TSH Urine Color LT. YELLOW Urine Clarity CLEAR Urine pH 7.0 Ur Specific [place] 1.010 Urine Protein NEGATIVE Urine Glucose (UA) NEGATIVE Urine Ketones NEGATIVE Urine Occult Blood NEGATIVE Urine Nitrite NEGATIVE Urine Bilirubin NEGATIVE Urine Urobilinogen 0.2 (NORMAL) Ur Leukocyte Esterase NEGATIVE Ur Microscopic Review NOT INDICATED Urine Culture Comments NOT INDICATED Urine HCG, Qual NEGATIVE Salicylates Urine Opiates Screen NEGATIVE Ur Oxycodone Screen NEGATIVE Urine Methadone Screen NEGATIVE Ur Propoxyphene Screen NEGATIVE Acetaminophen Ur Barbiturates Screen NEGATIVE Ur Tricyclics Screen NEGATIVE Ur Phencyclidine Scrn NEGATIVE Ur Amphetamine Screen NEGATIVE U Methamphetamines Scrn NEGATIVE U Benzodiazepines Scrn NEGATIVE Urine Cocaine Screen NEGATIVE U Cannabinoids Screen NEGATIVE Ethyl Alcohol SARS-CoV-2 (PCR) NOT DETECTED PD Medical Decision Making - ED course Complexity details: reviewed results, re-evaluated patient, d/w family ED course: Patient with a history of schizophrenia presenting for evaluation of his skin wounds that she has been picking at for at least a year. She has had several recent ED visits including 1 hospitalization to [facility]. She is currently on antibiotics. She is picking at her skin and difficult to redirect with this behavior.She usually takes Zyprexa at night. I did administer Zyprexa and Benadryl to see if this would help with her behavior. It was not used for agitation. This medication did not seem to alter her behavior at all and she continued to pick at her skin. Therefore she was placed in soft restraints and I also did administer Haldol and Ativan for her psychiatric symptoms. Again it was not used for agitation or for chemical restraints. Patient's lab are reviewed. She is noted to be anemic with a hemoglobin of 7.5.This is a change from recent labs. I did review this with her parents. She has had normal colored bowel movements. I did repeat the lab and it is slightly improved at 8.1.She is not hypotensive or tachycardic. She does not appear septic.She is currently on antibiotics for her wounds.I am concerned that her psychiatric illness is causing her to be gravely disabled and discussed this with the parents. At this time they are agreeable to considering psychiatric placement. I did place a social work consult. Records from [facility] were reviewed. Patient was seen in the emergency department on 02/17. Psychiatrist did see her in the emergency department and made the addition of Prozac to her medication regiment. At that time he did not feel that she required hospitalization for her psychiatric illness. She also did not require medical admission at that time. She continues to be on an antibiotic. 1700 - Corinne was social work did speak with the patient's parents. As they have an appointment with her psychiatrist tomorrow they do not want Her to be hospitalized tonight and we will try with her follow-up with a psychiatrist. If the note that there is still continued decline in the patient then they will bring her back to the emergency department for consideration of psychiatric hospitalization.Patient remains quite sleepy from the medications that she is received.Will prepare discharge and anticipate that she will be able to go home when she is more awake. Departure - Departure Disposition: Home, Self Care Clinical Impression: Multiple wounds of skin, Schizophrenia, Anemia Condition: Fair Instructions: ED Schizophrenia General Comments: Vanessa Was evaluated for her skin wounds as well as her Behaviors. Her labs show a worsening anemia from recent labs. She is not at the point where she needs a blood transfusion but it could become Worse requiring a blood transfusion. I would recommend close follow-up with her primary care doctor In regards to her anemia. Please continue her on the antibiotic. Please follow-up with her psychiatrist. At this time you have declined placement into a psychiatric facility. However If at anytime you feel that she is unsafe then I would bring her back to the emergency department. Discharge Date/Time: 03/01/22 19:51
[2022-03-01 12:12] LABS: BASOPHILS % (AUTO) 0.3 %; HGB - HEMOGLOBIN 7.5 g/dL (12.0-16.0); LYMPHOCYTES % (AUTO) 18.6 %; MEAN CORPUSCULAR HEMOGLOBIN 28.6 pg (27.0-31.0); MEAN CORPUSCULAR HGB CONC 31.3 g/dL (32.0-36.0); MEAN CORPUSCULAR VOLUME 91.6 fL (81.0-99.0); MEAN PLATELET VOLUME 11.1 fL (7.9-10.8); MONOCYTES % (AUTO) 6.1 %; NEUTROPHILS % (AUTO) 74.7 %; PLT - PLATELET COUNT 182 10^3/uL (130-450); RED BLOOD COUNT 2.62 10^6/uL (4.20-5.40); RED CELL DISTRIBUTION WIDTH 18.1 % (12.0-15.0); WHITE BLOOD COUNT 6.8 x10^3/uL (4.8-10.8)
[2022-03-01 12:15] LABS: ABNORMAL LYMPHS % (MANUAL) 0 %; SLIDE REVIEW? Indicated
--- OUTSIDE RECORDS SUMMARY | 2022-03-01 12:15 | EXTERNAL MEDICAL SUMMARY RPT | Continuity of Care Document ---
:1990 Author Organization [facility] Address [address] [place] [address] Phone Care Team Providers Name Role Phone Unavailable Unavailable Unavailable Margarita Pena Unavailable Unavailable Allergies and Intolerances date description facility type (no date) [facility] (unknown) Encounters No information. Functional Status No information. Immunizations No information. Medications date description facility 2022-02-11 00:00 Mupirocin [facility] 2022-02-17 00:00 [facility] 2022-02-11 00:00 [facility] 2022-02-17 00:00 [facility] 2022-02-11 00:00 Amoxicillin-Pot Clavulanate [facility] Problems date description facility 2022-01-30 00:00 Patient left after triage [facility] 2022-02-07 00:00 Septic shock [facility] 2022-02-07 00:00 Soft tissue infection [facility] 2022-02-07 17:16 Sepsis, unspecified organism [facility] 2022-02-07 18:57 Sepsis, unspecified organism [facility] 2022-02-07 20:58 Sepsis, unspecified organism [facility] 2022-02-07 20:58 Schizophrenia, unspecified [facility] 2022-02-07 20:58 Local infection of the skin and subcuta [facility] tissue, unspeci 2022-02-07 20:58 Severe sepsis with septic shock [facility] 2022-02-08 00:00 Skin ulcer [facility] 2022-02-08 00:00 Open wound of scalp [facility] 2022-02-08 00:00 Multiple open wounds of face [facility] 2022-02-08 05:41 Sepsis, unspecified organism [facility] 2022-02-08 05:41 Schizophrenia, unspecified [facility] 2022-02-08 05:41 Local infection of the skin and subcuta [facility] tissue, unspeci 2022-02-08 05:41 Severe sepsis with septic shock [facility] 2022-02-08 15:49 Sepsis, unspecified organism [facility] 2022-02-08 15:49 Schizophrenia, unspecified [facility] 2022-02-08 15:49 Local infection of the skin and subcuta [facility] tissue, unspeci 2022-02-08 15:49 Severe sepsis with septic shock [facility] 2022-02-11 08:04 Sepsis, unspecified organism [facility] 2022-02-11 08:04 Schizophrenia, unspecified [facility] 2022-02-11 08:04 Local infection of the skin and subcuta [facility] tissue, unspeci 2022-02-11 08:04 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 2022-02-11 08:04 Severe sepsis with septic shock [facility] 2022-02-11 08:04 Unspecified open wound of scalp, [facility] encounter 2022-02-11 08:04 Unspecified open wound of other part of [facility] initial encoun 2022-02-11 08:21 Sepsis, unspecified organism [facility] 2022-02-11 08:21 Schizophrenia, unspecified [facility] ital 2022-02-11 08:21 Local infection of the skin and subcuta [facility] tissue, unspeci 2022-02-11 08:21 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 2022-02-11 08:21 Severe sepsis with septic shock [facility] 2022-02-11 08:21 Unspecified open wound of scalp, [facility] encounter 2022-02-11 08:21 Unspecified open wound of other part of [facility] initial encoun 2022-02-11 12:40 Sepsis, unspecified organism [facility] 2022-02-11 12:40 Schizophrenia, unspecified [facility] 2022-02-11 12:40 Local infection of the skin and subcuta [facility] tissue, unspeci 2022-02-11 12:40 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 2022-02-11 12:40 Severe sepsis with septic shock [facility] 2022-02-11 12:40 Unspecified open wound of scalp, [facility] encounter 2022-02-11 12:40 Unspecified open wound of other part of [facility] initial encoun 2022-02-11 15:11 Sepsis, unspecified organism [facility] 2022-02-11 15:11 Schizophrenia, unspecified [facility] 2022-02-11 15:11 Local infection of the skin and subcuta [facility] tissue, unspeci 2022-02-11 15:11 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 2022-02-11 15:11 Severe sepsis with septic shock [facility] 2022-02-11 15:11 Unspecified open wound of scalp, [facility] encounter 2022-02-11 15:11 Unspecified open wound of other part of [facility] initial encoun 2022-02-11 15:35 Sepsis, unspecified organism [facility] 2022-02-11 15:35 Schizophrenia, unspecified [facility] 2022-02-11 15:35 Local infection of the skin and subcuta [facility] tissue, unspeci 2022-02-11 15:35 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 2022-02-11 15:35 Severe sepsis with septic shock [facility] 2022-02-11 15:35 Unspecified open wound of scalp, [facility] encounter 2022-02-11 15:35 Unspecified open wound of other part of [facility] initial encoun 2022-02-17 00:00 Hypokalemia [facility] 2022-02-17 00:00 Multiple open wounds of face [facility] Procedures date description facility 2022-02-07 00:00 insertion of infusion device into right internal [facility] jugular vein, percutaneous approach 2022-02-08 00:00 Anaerobic Culture [facility] 2022-02-11 00:00 Anaerobic Culture [facility] 2022-02-17 00:00 Anaerobic Culture [facility] 2022-02-08 00:00 Gram Stain [facility] 2022-02-11 00:00 Gram Stain [facility] 2022-02-17 00:00 Gram Stain [facility] 2022-02-07 00:00 X-ray of chest, single view [facility] 2022-02-07 00:00 Computed tomography angiography of ches t with [facility] contrast for pulmonary embolus 2022-02-09 00:00 Ultrasound of peripheral veins of both lower [facility] extremities 2022-02-09 00:00 CT sinus w [facility] 2022-02-09 00:00 CT abdomen [facility] Results/Labs test date author facility value unit interpret ation Result panel 1 (unknown) (no date) (unknown[facility] Result panel 2 (unknown) (no date) (unknown[facility] Result panel 3 (unknown) (no date) (unknown[facility] Result panel 4 (unknown) (no date) (unknown[facility] Result panel 5 (unknown) (no date) (unknown[facility] Result panel 6 (unknown) (no date) (unknown[facility] Result panel 7 (unknown) (no date) (unknown[facility] Result panel 8 (unknown) (no date) (unknown[facility] Result panel 9 (unknown) (no date) (unknown[facility]) Result panel 10 (unknown) (no date) (unknown[facility] Result panel 11 (unknown) (no date) (unknown[facility] Result panel 12 (unknown) (no date) (unknown[facility]) Result panel 13 (unknown) (no date) (unknown[facility] Result panel 14 (unknown) (no date) (unknown[facility]) Result panel 15 (unknown) (no date) (unknown[facility] Result panel 16 (unknown) (no date) (unknown[facility]) Result panel 17 (unknown) (no date) (unknown[facility] Result panel 18 (unknown) (no date) (unknown[facility]) Result panel 19 (unknown) (no date) (unknown[facility]) Result panel 20 (unknown) (no date) (unknown[facility] Result panel 21 (unknown) (no date) (unknown[facility]) Result panel 22 (unknown) (no date) (unknown[facility] Result panel 23 (unknown) (no date) (unknown[facility] Result panel 24 (unknown) (no date) (unknown[facility]) Result panel 25 (unknown) (no date) (unknown[facility] Result panel 26 (unknown) (no date) (unknown[facility]) Result panel 27 (unknown) (no date) (unknown[facility]) Result panel 28 (unknown) (no date) (unknown[facility]) Result panel 29 (unknown) (no date) (unknown[facility]) Result panel 30 (unknown) (no date) (unknown[facility] Result panel 31 (unknown) (no date) (unknown[facility]) Result panel 32 (unknown) (no date) (unknown[facility]) Result panel 33 (unknown) (no date) (unknown[facility]) Result panel 34 (unknown) (no date) (unknown[facility]) Result panel 35 (unknown) (no date) (unknown[facility]) Result panel 36 (unknown) (no date) (unknown[facility]) Result panel 37 (unknown) (no date) (unknown[facility]) Result panel 38 (unknown) (no date) (unknown[facility]) Result panel 39 (unknown) (no date) (unknown[facility]) Result panel 40 (unknown) (no date) (unknown[facility] Result panel 41 (unknown) (no date) (unknown[facility]) Result panel 42 (unknown) (no date) (unknown[facility]) Result panel 43 (unknown) (no date) (unknown[facility]) Result panel 44 (unknown) (no date) (unknown[facility]) Result panel 45 (unknown) (no date) (unknown[facility]) Result panel 46 (unknown) (no date) (unknown[facility]) Result panel 47 (unknown) (no date) (unknown[facility]) Result panel 48 (unknown) (no date) (unknown[facility]) Result panel 49 (unknown) (no date) (unknown[facility]) Result panel 50 (unknown) (no date) (unknown) [facility]) Result panel 51 (unknown) (no date) (unknown[facility]) Result panel 52 (unknown) (no date) (unknown) [facility]) Result panel 53 (unknown) (no date) (unknown) [facility]) Result panel 54 (unknown) (no date) (unknown[facility]) Result panel 55 (unknown) (no date) (unknown) [facility]) Result panel 56 (unknown) (no date) (unknown) [facility]) Result panel 57 (unknown) (no date) (unknown) [facility]) Result panel 58 (unknown) (no date) (unknown) [facility]) Result panel 59 (unknown) (no date) (unknown) [facility]) Result panel 60 (unknown) (no date) (unknown[facility]) Result panel 61 (unknown) (no date) (unknown[facility]) Result panel 62 (unknown) (no date) (unknown) [facility]) Result panel 63 (unknown) (no date) (unknown[facility]) Result panel 64 (unknown) (no date) (unknown) [facility]) Result panel 65 (unknown) (no date) (unknown) [facility]) Result panel 66 (unknown) (no date) (unknown) [facility]) Result panel 67 (unknown) (no date) (unknown) [facility]) Result panel 68 (unknown) (no date) (unknown) [facility]) Result panel 69 (unknown) (no date) (unknown[facility]) Result panel 70 (unknown) (no date) (unknown) [facility]) Result panel 71 (unknown) (no date) (unknown) [facility]) Result panel 72 (unknown) (no date) (unknown[facility]) Result panel 73 (unknown) (no date) (unknown) [facility]) Result panel 74 (unknown) (no date) (unknown) [facility]) Result panel 75 (unknown) (no date) (unknown) [facility]) Result panel 76 (unknown) (no date) (unknown) [facility]) Result panel 77 (unknown) (no date) (unknown) [facility]) Result panel 78 (unknown) (no date) (unknown) [facility]) Result panel 79 (unknown) (no date) (unknown) [facility]) Result panel 80 (unknown) (no date) (unknown) [facility]) Result panel 81 (unknown) (no date) (unknown) [facility]) Result panel 82 (unknown) (no date) (unknown[facility]) Result panel 83 (unknown) (no date) (unknown) [facility]) Result panel 84 (unknown) (no date) (unknown) [facility]) Result panel 85 (unknown) (no date) (unknown) [facility]) Result panel 86 (unknown) (no date) (unknown) [facility]) Result panel 87 (unknown) (no date) (unknown) [facility]) Result panel 88 (unknown) (no date) (unknown[facility]) Result panel 89 (unknown) (no date) (unknown[facility] Result panel 90 (unknown) (no date) (unknown) [facility]) Result panel 91 (unknown) (no date) (unknown[facility]) Result panel 92 (unknown) (no date) (unknown) [facility]) Result panel 93 (unknown) (no date) (unknown) [facility]) Result panel 94 (unknown) (no date) (unknown[facility]) Result panel 95 (unknown) (no date) (unknown) [facility]) Result panel 96 (unknown) (no date) (unknown) [facility]) Result panel 97 (unknown) (no date) (unknown[facility]) Result panel 98 (unknown) (no date) (unknown[facility]) Result panel 99 (unknown) (no date) (unknown[facility]) Result panel 100 (unknown) (no date) (unknown[facility]) Result panel 101 (unknown) (no date) (unknown[facility]) Result panel 102 (unknown) (no date) (unknown[facility]) Result panel 103 (unknown) (no date) (unknown) [facility]) Result panel 104 (unknown) (no date) (unknown) [facility]) Result panel 105 (unknown) (no date) (unknown) [facility]) Result panel 106 (unknown) (no date) (unknown) [facility]) Result panel 107 (unknown) (no date) (unknown[facility]) Result panel 108 (unknown) (no date) (unknown) [facility] Result panel 109 (unknown) (no date) (unknown) [facility]) Result panel 110 (unknown) (no date) (unknown) [facility]) Result panel 111 (unknown) (no date) (unknown) [facility]) Result panel 112 (unknown) (no date) (unknown) [facility]) Result panel 113 (unknown) (no date) (unknown) [facility]) Result panel 114 (unknown) (no date) (unknown) [facility]) Result panel 115 (unknown) (no date) (unknown) [facility]) Result panel 116 (unknown) (no date) (unknown) [facility]) Result panel 117 (unknown) (no date) (unknown) [facility]) Result panel 118 (unknown) (no date) (unknown) [facility] Result panel 119 (unknown) (no date) (unknown) [facility]) Result panel 120 (unknown) (no date) (unknown) [facility]) Result panel 121 (unknown) (no date) (unknown) [facility]) Result panel 122 (unknown) (no date) (unknown) [facility]) Result panel 123 (unknown) (no date) (unknown) [facility]) Result panel 124 (unknown) (no date) (unknown) [facility]) Result panel 125 (unknown) (no date) (unknown) [facility]) Result panel 126 (unknown) (no date) (unknown) [facility]) Result panel 127 (unknown) (no date) (unknown) [facility]) Result panel 128 (unknown) (no date) (unknown) [facility]) Result panel 129 (unknown) (no date) (unknown) [facility]) Result panel 130 (unknown) (no date) (unknown) [facility]) Result panel 131 (unknown) (no date) (unknown) [facility]) Result panel 132 (unknown) (no date) (unknown) [facility]) Result panel 133 (unknown) (no date) (unknown) [facility]) Result panel 134 (unknown) (no date) (unknown) [facility]) Result panel 135 (unknown) (no date) (unknown) [facility]) Result panel 136 (unknown) (no date) (unknown) [facility]) Result panel 137 (unknown) (no date) (unknown) [facility]) Result panel 138 (unknown) (no date) (unknown) [facility]) Result panel 139 (unknown) (no date) (unknown) [facility]) Result panel 140 (unknown) (no date) (unknown) [facility] Result panel 141 (unknown) (no date) (unknown) [facility]) Result panel 142 (unknown) (no date) (unknown) [facility]) Result panel 143 (unknown) (no date) (unknown) [facility]) Result panel 144 (unknown) (no date) (unknown) [facility]) Result panel 145 (unknown) (no date) (unknown) [facility]) Result panel 146 (unknown) (no date) (unknown) [facility]) Result panel 147 (unknown) (no date) (unknown) [facility]) Result panel 148 (unknown) (no date) (unknown) [facility]) Result panel 149 (unknown) (no date) (unknown) [facility]) Result panel 150 (unknown) (no date) (unknown) [facility]) Result panel 151 (unknown) (no date) (unknown) [facility]) Result panel 152 (unknown) (no date) (unknown) [facility]) Result panel 153 (unknown) (no date) (unknown) [facility]) Result panel 154 (unknown) (no date) (unknown) [facility]) Result panel 155 (unknown) (no date) (unknown) [facility]) Result panel 156 (unknown) (no date) (unknown) [facility]) Result panel 157 (unknown) (no date) (unknown) [facility]) Result panel 158 (unknown) (no date) (unknown) [facility]) Result panel 159 (unknown) (no date) (unknown) [facility]) Result panel 160 (unknown) (no date) (unknown) [facility]) Result panel 161 (unknown) (no date) (unknown) [facility]) Result panel 162 (unknown) (no date) (unknown) [facility]) Result panel 163 (unknown) (no date) (unknown) [facility]) Result panel 164 (unknown) (no date) (unknown) [facility]) Result panel 165 (unknown) (no date) (unknown) [facility]) Result panel 166 (unknown) (no date) (unknown) [facility]) Result panel 167 (unknown) (no date) (unknown) [facility]) Result panel 168 (unknown) (no date) (unknown) [facility]) Result panel 169 (unknown) (no date) (unknown) [facility]) Result panel 170 (unknown) (no date) (unknown) [facility]) Result panel 171 (unknown) (no date) (unknown) [facility]) Result panel 172 (unknown) (no date) (unknown) [facility]) Result panel 173 (unknown) (no date) (unknown) [facility]) Result panel 174 (unknown) (no date) (unknown[facility]) Result panel 175 (unknown) (no date) [facility]) Result panel 176 (unknown) (no date) (unknown) [facility] Result panel 177 (unknown) (no date) (unknown) [facility] Result panel 178 (unknown) (no date) (unknown) [facility] Result panel 179 (unknown) (no date) (unknown) [facility]) Result panel 180 (unknown) (no date) (unknown) [facility] Result panel 181 (unknown) (no date) (unknown[facility]) Result panel 182 (unknown) (no date) (unknown) [facility] Result panel 183 (unknown) (no date) (unknown) [facility]) Result panel 184 (unknown) (no date) (unknown) [facility]) Result panel 185 (unknown) (no date) (unknown) [facility]) Result panel 186 (unknown) (no date) (unknown) [facility]) Result panel 187 (unknown) (no date) (unknown) [facility]) Result panel 188 (unknown) (no date) (unknown[facility]) Result panel 189 (unknown) (no date) (unknown) [facility] Result panel 190 (unknown) (no date) (unknown) [facility]) Result panel 191 (unknown) (no date) (unknown) [facility]) Result panel 192 (unknown) (no date) (unknown) [facility]) Result panel 193 (unknown) (no date) (unknown) [facility]) Result panel 194 (unknown) (no date) (unknown) [facility]) Result panel 195 (unknown) (no date) (unknown) [facility]) Result panel 196 (unknown) (no date) (unknown) [facility]) Result panel 197 (unknown) (no date) (unknown) [facility]) Result panel 198 (unknown) (no date) (unknown) [facility]) Result panel 199 (unknown) (no date) (unknown) [facility]) Result panel 200 (unknown) (no date) (unknown[facility]) Result panel 201 (unknown) (no date) (unknown) [facility]) Result panel 202 (unknown) (no date) (unknown) [facility]) Result panel 203 (unknown) (no date) (unknown) [facility]) Result panel 204 (unknown) (no date) (unknown) [facility]) Result panel 205 (unknown) (no date) (unknown) [facility]) Result panel 206 (unknown) (no date) (unknown) [facility]) Result panel 207 (unknown) (no date) (unknown) [facility]) Result panel 208 (unknown) (no date) (unknown) [facility]) Result panel 209 (unknown) (no date) (unknown) [facility]) Result panel 210 (unknown) (no date) (unknown) [facility]) Result panel 211 (unknown) (no date) (unknown) [facility]) Result panel 212 (unknown) (no date) (unknown) [facility]) Result panel 213 (unknown) (no date) (unknown) [facility]) Result panel 214 (unknown) (no date) (unknown) [facility]) Result panel 215 (unknown) (no date) (unknown) [facility]) Result panel 216 (unknown) (no date) (unknown) [facility]) Result panel 217 (unknown) (no date) (unknown) [facility]) Result panel 218 (unknown) (no date) (unknown) [facility]) Result panel 219 (unknown) (no date) (unknown) [facility]) Result panel 220 (unknown) (no date) (unknown) [facility]) Result panel 221 (unknown) (no date) (unknown) [facility]) Result panel 222 (unknown) (no date) (unknown) [facility]) Result panel 223 (unknown) (no date) (unknown) [facility]) Result panel 224 (unknown) (no date) (unknown) [facility]) Result panel 225 (unknown) (no date) (unknown) [facility]) Result panel 226 (unknown) (no date) (unknown) [facility]) Result panel 227 (unknown) (no date) (unknown) [facility]) Result panel 228 (unknown) (no date) (unknown) [facility]) Result panel 229 (unknown) (no date) (unknown) [facility]) Result panel 230 (unknown) (no date) (unknown) [facility]) Result panel 231 (unknown) (no date) (unknown) [facility]) Result panel 232 (unknown) (no date) (unknown) [facility]) Result panel 233 (unknown) (no date) (unknown) [facility]) Result panel 234 (unknown) (no date) (unknown) [facility]) Result panel 235 (unknown) (no date) (unknown) [facility]) Result panel 236 (unknown) (no date) (unknown) [facility]) Result panel 237 (unknown) (no date) (unknown) [facility]) Result panel 238 (unknown) (no date) (unknown) [facility]) Result panel 239 (unknown) (no date) (unknown) [facility]) Result panel 240 (unknown) (no date) (unknown) [facility]) Result panel 241 (unknown) (no date) (unknown) [facility]) Result panel 242 (unknown) (no date) (unknown) [facility]) Result panel 243 (unknown) (no date) (unknown) [facility]) Result panel 244 (unknown) (no date) (unknown) [facility]) Result panel 245 (unknown) (no date) (unknown) [facility]) Result panel 246 (unknown) (no date) (unknown) [facility]) Result panel 247 (unknown) (no date) (unknown) [facility]) Result panel 248 (unknown) (no date) (unknown) [facility]) Result panel 249 (unknown) (no date) (unknown) [facility]) Result panel 250 (unknown) (no date) (unknown) [facility]) Result panel 251 (unknown) (no date) (unknown) [facility]) Result panel 252 (unknown) (no date) (unknown) [facility]) Result panel 253 (unknown) (no date) (unknown) [facility]) Result panel 254 (unknown) (no date) (unknown) [facility]) Result panel 255 (unknown) (no date) (unknown) [facility]) Result panel 256 (unknown) (no date) (unknown) [facility]) Result panel 257 (unknown) (no date) (unknown) [facility]) Result panel 258 (unknown) (no date) (unknown) [facility]) Result panel 259 (unknown) (no date) (unknown) [facility]) Result panel 260 (unknown) (no date) (unknown) [facility]) Result panel 261 (unknown) (no date) (unknown) [facility]) Result panel 262 (unknown) (no date) (unknown) [facility]) Result panel 263 (unknown) (no date) (unknown) [facility]) Result panel 264 (unknown) (no date) (unknown) [facility]) Result panel 265 (unknown) (no date) (unknown) [facility]) Result panel 266 (unknown) (no date) (unknown) [facility]) Result panel 267 (unknown) (no date) (unknown) [facility]) Result panel 268 (unknown) (no date) (unknown) [facility]) Result panel 269 (unknown) (no date) (unknown) [facility]) Result panel 270 (unknown) (no date) (unknown) [facility]) Result panel 271 (unknown) (no date) (unknown) [facility]) Result panel 272 (unknown) (no date) (unknown) [facility]) Result panel 273 (unknown) (no date) (unknown) [facility]) Result panel 274 (unknown) (no date) (unknown) [facility]) Result panel 275 (unknown) (no date) (unknown) [facility]) Result panel 276 (unknown) (no date) (unknown) [facility]) Result panel 277 (unknown) (no date) (unknown) [facility]) Result panel 278 (unknown) (no date) (unknown) [facility] Result panel 279 (unknown) (no date) (unknown) [facility]) Result panel 280 (unknown) (no date) (unknown) [facility]) Result panel 281 (unknown) (no date) (unknown) [facility]) Result panel 282 (unknown) (no date) (unknown) [facility]) Result panel 283 (unknown) (no date) (unknown) [facility]) Result panel 284 (unknown) (no date) (unknown) [facility]) Result panel 285 (unknown) (no date) (unknown) [facility]) Result panel 286 (unknown) (no date) (unknown) [facility]) Result panel 287 (unknown) (no date) (unknown) [facility]) Result panel 288 (unknown) (no date) (unknown) [facility]) Result panel 289 (unknown) (no date) (unknown) [facility]) Result panel 290 (unknown) (no date) (unknown) [facility]) Result panel 291 (unknown) (no date) (unknown) [facility]) Result panel 292 (unknown) (no date) (unknown) [facility]) Result panel 293 (unknown) (no date) (unknown) [facility]) Result panel 294 (unknown) (no date) (unknown) [facility]) Result panel 295 (unknown) (no date) (unknown) [facility]) Result panel 296 (unknown) (no date) (unknown) [facility]) Result panel 297 (unknown) (no date) (unknown) [facility]) Result panel 298 (unknown) (no date) (unknown) [facility]) Result panel 299 (unknown) (no date) (unknown) [facility]) Result panel 300 (unknown) (no date) (unknown) [facility]) Result panel 301 (unknown) (no date) (unknown) [facility]) Result panel 302 (unknown) (no date) (unknown) [facility]) Result panel 303 (unknown) (no date) (unknown) [facility]) Result panel 304 (unknown) (no date) (unknown) [facility]) Result panel 305 (unknown) (no date) (unknown) [facility]) Result panel 306 (unknown) (no date) (unknown) [facility]) Result panel 307 (unknown) (no date) (unknown) [facility]) Result panel 308 (unknown) (no date) (unknown) [facility]) Result panel 309 (unknown) (no date) (unknown) [facility]) Result panel 310 (unknown) (no date) (unknown) [facility]) Result panel 311 (unknown) (no date) (unknown[facility]) Result panel 312 (unknown) (no date) (unknown) [facility]) Result panel 313 (unknown) (no date) (unknown) [facility]) Result panel 314 (unknown) (no date) (unknown) [facility]) Result panel 315 (unknown) (no date) (unknown) [facility]) Result panel 316 (unknown) (no date) (unknown) [facility]) Result panel 317 (unknown) (no date) (unknown) [facility]) Result panel 318 (unknown) (no date) (unknown) [facility]) Result panel 319 (unknown) (no date) (unknown) [facility]) Result panel 320 (unknown) (no date) (unknown) [facility]) Result panel 321 (unknown) (no date) (unknown) [facility]) Result panel 322 (unknown) (no date) (unknown) [facility]) Result panel 323 (unknown) (no date) (unknown) [facility]) Result panel 324 (unknown) (no date) (unknown) [facility]) Result panel 325 (unknown) (no date) (unknown) [facility]) Result panel 326 (unknown) (no date) (unknown) [facility]) Result panel 327 (unknown) (no date) (unknown) [facility]) Result panel 328 (unknown) (no date) (unknown) [facility]) Result panel 329 (unknown) (no date) (unknown) [facility]) Result panel 330 (unknown) (no date) (unknown) [facility]) Result panel 331 (unknown) (no date) (unknown) [facility]) Result panel 332 (unknown) (no date) (unknown) [facility]) Result panel 333 (unknown) (no date) (unknown) [facility]) Result panel 334 (unknown) (no date) (unknown) [facility]) Result panel 335 (unknown) (no date) (unknown) [facility]) Result panel 336 (unknown) (no date) (unknown) [facility]) Result panel 337 (unknown) (no date) (unknown) [facility]) Result panel 338 (unknown) (no date) (unknown) [facility]) Result panel 339 (unknown) (no date) (unknown) [facility]) Result panel 340 (unknown) (no date) (unknown) [facility]) Result panel 341 (unknown) (no date) (unknown) [facility]) Result panel 342 (unknown) (no date) (unknown) [facility]) Result panel 343 (unknown) (no date) (unknown) [facility]) Result panel 344 (unknown) (no date) (unknown) [facility]) Result panel 345 (unknown) (no date) (unknown) [facility]) Result panel 346 (unknown) (no date) (unknown) [facility]) Result panel 347 (unknown) (no date) (unknown) [facility]) Result panel 348 (unknown) (no date) (unknown) [facility]) Result panel 349 (unknown) (no date) (unknown) [facility]) Result panel 350 (unknown) (no date) (unknown) [facility]) Result panel 351 (unknown) (no date) (unknown) [facility]) Result panel 352 (unknown) (no date) (unknown) [facility]) Result panel 353 (unknown) (no date) (unknown) [facility]) Result panel 354 (unknown) (no date) (unknown) [facility]) Result panel 355 (unknown) (no date) (unknown) [facility]) Result panel 356 (unknown) (no date) (unknown) [facility]) Result panel 357 (unknown) (no date) (unknown) [facility]) Result panel 358 (unknown) (no date) (unknown) [facility]) Result panel 359 (unknown) (no date) (unknown) [facility]) Result panel 360 (unknown) (no date) (unknown) [facility]) Result panel 361 (unknown) (no date) (unknown) [facility]) Result panel 362 (unknown) (no date) (unknown) [facility]) Result panel 363 (unknown) (no date) (unknown) [facility]) Result panel 364 (unknown) (no date) (unknown) [facility]) Result panel 365 (unknown) (no date) (unknown) [facility]) Result panel 366 (unknown) (no date) (unknown) [facility]) Result panel 367 (unknown) (no date) (unknown) [facility] Result panel 368 (unknown) (no date) (unknown) [facility]) Result panel 369 (unknown) (no date) (unknown) [facility]) Result panel 370 (unknown) (no date) (unknown) [facility]) Result panel 371 (unknown) (no date) (unknown) [facility]) Result panel 372 (unknown) (no date) (unknown) [facility]) Result panel 373 (unknown) (no date) (unknown) [facility]) Result panel 374 (unknown) (no date) (unknown) [facility]) Result panel 375 (unknown) (no date) (unknown) [facility]) Result panel 376 (unknown) (no date) (unknown) [facility]) Result panel 377 (unknown) (no date) (unknown) [facility]) Result panel 378 (unknown) (no date) (unknown) [facility]) Result panel 379 (unknown) (no date) (unknown) [facility]) Result panel 380 (unknown) (no date) (unknown) [facility]) Result panel 381 (unknown) (no date) (unknown) [facility]) Result panel 382 (unknown) (no date) (unknown) [facility]) Result panel 383 (unknown) (no date) (unknown) [facility]) Result panel 384 (unknown) (no date) (unknown) [facility]) Result panel 385 (unknown) (no date) (unknown) [facility]) Result panel 386 (unknown) (no date) (unknown) [facility]) Result panel 387 (unknown) (no date) (unknown) [facility]) Result panel 388 (unknown) (no date) (unknown) [facility]) Result panel 389 (unknown) (no date) (unknown) [facility]) Result panel 390 (unknown) (no date) (unknown) [facility]) Result panel 391 (unknown) (no date) (unknown) [facility]) Result panel 392 (unknown) (no date) (unknown) [facility]) Result panel 393 (unknown) (no date) (unknown) [facility]) Result panel 394 (unknown) (no date) (unknown) [facility]) Result panel 395 (unknown) (no date) (unknown) [facility]) Result panel 396 (unknown) (no date) (unknown) [facility]) Result panel 397 (unknown) (no date) (unknown) [facility]) Result panel 398 (unknown) (no date) (unknown) [facility]) Result panel 399 (unknown) (no date) (unknown) [facility]) Result panel 400 (unknown) (no date) (unknown) [facility]) Result panel 401 (unknown) (no date) (unknown) [facility]) Result panel 402 (unknown) (no date) (unknown) [facility]) Result panel 403 (unknown) (no date) (unknown) [facility]) Result panel 404 (unknown) (no date) (unknown) [facility]) Result panel 405 (unknown) (no date) (unknown) [facility]) Result panel 406 (unknown) (no date) (unknown) [facility]) Result panel 407 (unknown) (no date) (unknown) [facility]) Result panel 408 (unknown) (no date) (unknown) [facility]) Result panel 409 (unknown) (no date) (unknown) [facility]) Result panel 410 (unknown) (no date) (unknown) [facility]) Result panel 411 (unknown) (no date) (unknown) [facility]) Result panel 412 (unknown) (no date) (unknown) [facility] unknown) Result panel 413 (unknown) (no date) (unknown) [facility]) Result panel 414 (unknown) (no date) (unknown) [facility] Result panel 415 (unknown) (no date) (unknown) [facility]) Result panel 416 (unknown) (no date) (unknown) [facility]) Result panel 417 (unknown) (no date) (unknown) [facility]) Result panel 418 (unknown) (no date) (unknown) [facility]) Result panel 419 (unknown) (no date) (unknown) [facility]) Result panel 420 (unknown) (no date) (unknown) [facility]) Result panel 421 (unknown) (no date) (unknown) [facility]) Result panel 422 (unknown) (no date) (unknown) [facility]) Result panel 423 (unknown) (no date) (unknown) [facility]) Result panel 424 (unknown) (no date) (unknown) [facility]) Result panel 425 (unknown) (no date) (unknown) [facility]) Result panel 426 (unknown) (no date) (unknown) [facility]) Result panel 427 (unknown) (no date) (unknown) [facility]) Result panel 428 (unknown) (no date) (unknown) [facility]) Result panel 429 (unknown) (no date) (unknown) [facility]) Result panel 430 (unknown) (no date) (unknown) [facility]) Result panel 431 (unknown) (no date) (unknown) [facility]) Result panel 432 (unknown) (no date) (unknown) [facility]) Result panel 433 (unknown) (no date) (unknown) [facility]) Result panel 434 (unknown) (no date) (unknown) [facility]) Result panel 435 (unknown) (no date) (unknown) [facility]) Result panel 436 (unknown) (no date) (unknown) [facility]) Result panel 437 (unknown) (no date) (unknown) [facility]) Result panel 438 (unknown) (no date) (unknown) [facility]) Result panel 439 (unknown) (no date) (unknown) [facility]) Result panel 440 (unknown) (no date) (unknown) [facility] Result panel 441 (unknown) (no (unknown) (unknown) (no value) (units (unk nown) date) unknown) (unknown) (no (unknown) (unknown) 02/07/22 (units (unkno wn) date) unknown) (unknown) (no (unknown) (unknown) [id number] (units (unkn own) date) Street unknown) (unknown) (no (unknown) (unknown) : [id number] (units (u nknown) date) unknown) (unknown) (no (unknown) (unknown) Accession (units (unkn own) date) Number: unknown) [id number] (unknown) (no (unknown) (unknown) Age/Sex: 31 / F (units (unknown) date) Date of Service: unknown) (unknown) (no (unknown) (unknown) [place], [place] (units ( unknown) date) [id number] unknown) (unknown) (no (unknown) (unknown) Approved by: (units (u nknown) date) Mikel Nur M.D. unknown) on 02/07/2022 at 9:09 (unknown) (no (unknown) (unknown) Bones and chest (units (unknown) date) wall: No unknown) suspicious bony lesions. Overlying soft tissues (unknown) (no (unknown) (unknown) COM[facility]: [facility]un known) [facility], 12/01/2018, 14:33. (unknown) (no (unknown) (unknown) : 1990 (units (unknown) date) Acct:[id number] unknown) (unknown) (no (unknown) (unknown) Dictated by: (units (u nknown) date) Mikel Nur M.D. unknown) on 02/07/2022 at 9:08 (unknown) (no (unknown) (unknown) FINDINGS: (units (unkn own) date) unknown) (unknown) (no (unknown) (unknown) Findings are (units (u nknown) date) unknown) (unknown) (no (unknown) (unknown) IMPRESSION: (units (un known) date) Diffuse unknown) interstitial prominence without focal consolidation. (unknown) (no (unknown) (unknown) INDICATIONS: (units (u nknown) date) fever unknown) (unknown) (no (unknown) (unknown) [facility] (units (unknown) date) unknown) (unknown) (no (unknown) (unknown) Loc: ED (units (unkno wn) date) unknown) (unknown) (no (unknown) (unknown) Lungs and (units (unkn own) date) pleura: Diffuse unknown) interstitial prominence. No focal consolidation. (unknown) (no (unknown) (unknown) Mediastinum: (units (u nknown) date) Mediastinal unknown) contours appear normal. Heart size is normal. (unknown) (no (unknown) (unknown) No (units (unkno wn) date) unknown) (unknown) (no (unknown) (unknown) Ordering (units (unkno wn) date) Provider: unknown) Amelia Unger D.O. (unknown) (no (unknown) (unknown) PROCEDURE: XR (units ( unknown) date) CHEST 1V unknown) (unknown) (no (unknown) (unknown) Patient: (units (unkno wn) date) Kika Mills unknown) e B MR# (unknown) (no (unknown) (unknown) Procedure: XR (units ( unknown) date) chest 1V unknown) (unknown) (no (unknown) (unknown) Recommend (units (unkn own) date) follow up chest unknown) radiograph 4-6 weeks after treatment to document (unknown) (no (unknown) (unknown) Signed (units (unkno wn) date) unknown) (unknown) (no (unknown) (unknown) Surgical (units (unkno wn) date) changes and unknown) devices: None. (unknown) (no (unknown) (unknown) TECHNIQUE: One (units (unknown) date) view of the unknown) chest was acquired. (unknown) (no (unknown) (unknown) XRay Report (units (un known) date) unknown) (unknown) (no (unknown) (unknown) appear (units (unkno wn) date) unknown) (unknown) (no (unknown) (unknown) etiology (units (unkno wn) date) unknown) (unknown) (no (unknown) (unknown) findings and/or (units (unknown) date) return to unknown) baseline examination. (unknown) (no (unknown) (unknown) most likely. (units (u nknown) date) unknown) (unknown) (no (unknown) (unknown) nonspecific and (units (unknown) date) may represent an unknown) infectious or inflammatory process with viral (unknown) (no (unknown) (unknown) pneumothorax or (units (unknown) date) substantial unknown) pleural effusion. (unknown) (no (unknown) (unknown) resolution of (units ( unknown) date) unknown) (unknown) (no (unknown) (unknown) unremarkable. (units ( unknown) date) unknown) Result panel 442 (unknown) (no date) (unknown) (unknown) 0 /ul (unkn own) (unknown) (no date) (unknown) (unknown) 0 /ul (unkn own) (unknown) (no date) (unknown) (unknown) 0.0 % (unkn own) (unknown) (no date) (unknown) (unknown) 0.5 % (unkn own) (unknown) (no date) (unknown) (unknown) 10.1 % (unkn own) (unknown) (no date) (unknown) (unknown) 10.9 g/dl (unkn own) (unknown) (no date) (unknown) (unknown) 14.1 % (unkn own) (unknown) (no date) (unknown) (unknown) 155 x10 3/ul (unkn own) (unknown) (no date) (unknown) (unknown) 20.7 % (unkn own) (unknown) (no date) (unknown) (unknown) 28.7 pg (unkn own) (unknown) (no date) (unknown) (unknown) 3.79 x10 6/ul (unkn own) (unknown) (no date) (unknown) (unknown) 3100 /ul (unkn own) (unknown) (no date) (unknown) (unknown) 32.5 % (unkn own) (unknown) (no date) (unknown) (unknown) 33.5 % (unkn own) (unknown) (no date) (unknown) (unknown) 4.5 x10 3/ul (unkn own) (unknown) (no date) (unknown) (unknown) 500 /ul (unkn own) (unknown) (no date) (unknown) (unknown) 68.7 % (unkn own) (unknown) (no date) (unknown) (unknown) 85.7 fl (unkn own) (unknown) (no date) (unknown) (unknown) 900 /ul (unkn own) Result panel 443 (unknown) (no (unknown) (unknown) (no value) (units (unk nown) date) unknown) (unknown) (no (unknown) (unknown) 08:10 (units (unkno wn) date) unknown) (unknown) (no (unknown) (unknown) 10 mg PO DAILY (units (unknown) date) Qty: 90 1RF unknown) (unknown) (no (unknown) (unknown) 02/07/22 08:09 (units (unknown) date) unknown) (unknown) (no (unknown) (unknown) 02/07/22 08:11 (units (unknown) date) unknown) (unknown) (no (unknown) (unknown) 02/07/22 08:27 (units (unknown) date) unknown) (unknown) (no (unknown) (unknown) 02/07/22 (units (unkno wn) date) unknown) (unknown) (no (unknown) (unknown) 15 mg PO BEDTIME (units (unknown) date) Qty: 90 1RF unknown) (unknown) (no (unknown) (unknown) 5 mg PO BID (units (un known) date) unknown) (unknown) (no (unknown) (unknown) Age/Sex: 31 / F (units (unknown) date) unknown) (unknown) (no (unknown) (unknown) Allergies (units (unkn own) date) unknown) (unknown) (no (unknown) (unknown) Allergy/AdvReac (units (unknown) date) Type Severity unknown) Reaction Status Date / Time (unknown) (no (unknown) (unknown) Blood Culture (units ( unknown) date) Stat unknown) (unknown) (no (unknown) (unknown) Blood Pressure (units (unknown) date) 100/57 L 02/07/22 unknown) 08:10 (unknown) (no (unknown) (unknown) Blood Pressure (units (unknown) date) 100/57 L unknown) (unknown) (no (unknown) (unknown) CBC Auto Diff (units ( unknown) date) [Complete Blood unknown) Count AUTO DIFF] Stat (unknown) (no (unknown) (unknown) CMP (units (unkno wn) date) [Comprehensive unknown) Metabolic Panel] Stat (unknown) (no (unknown) (unknown) Chest [XR chest (units (unknown) date) 1V] Stat unknown) (unknown) (no (unknown) (unknown) Chief Complaint: (units (unknown) date) Altered Mental unknown) Status (unknown) (no (unknown) (unknown) Course (units (unkno wn) date) unknown) (unknown) (no (unknown) (unknown) Covid-19 + FLU (units (unknown) date) A/B + RSV - PCR unknown) Stat (unknown) (no (unknown) (unknown) : 1990 (units (unknown) date) Acct:[id number] unknown) (unknown) (no (unknown) (unknown) Date of Service: (units (unknown) date) 02/07/22 unknown) (unknown) (no (unknown) (unknown) Departure (units (unkn own) date) unknown) (unknown) (no (unknown) (unknown) Discharge Plan (units (unknown) date) unknown) (unknown) (no (unknown) (unknown) ED Orders (units (unkn own) date) unknown) (unknown) (no (unknown) (unknown) ER Physician: (units ( unknown) date) Amelia Unger unknown) D.O. (unknown) (no (unknown) (unknown) Eliquis 5 mg (units (u nknown) date) tablet unknown) (unknown) (no (unknown) (unknown) Emergency Report (units (unknown) date) unknown) (unknown) (no (unknown) (unknown) Exam (units (unkno wn) date) unknown) (unknown) (no (unknown) (unknown) General (units (unkno wn) date) unknown) (unknown) (no (unknown) (unknown) HPI - Fever (units (un known) date) unknown) (unknown) (no (unknown) (unknown) Home Medications (units (unknown) date) unknown) (unknown) (no (unknown) (unknown) Initial Vital (units ( unknown) date) Signs unknown) (unknown) (no (unknown) (unknown) Initial Vital (units ( unknown) date) Signs: unknown) (unknown) (no (unknown) (unknown) [facility] (units (unknown) date) [address] unknown) [place] [address] (unknown) (no (unknown) (unknown) Lab Data (units (unkno wn) date) unknown) (unknown) (no (unknown) (unknown) Lactate (Lactic (units (unknown) date) Acid) Stat unknown) (unknown) (no (unknown) (unknown) [id number] (units (unk nown) date) unknown) (unknown) (no (unknown) (unknown) MDM - Fever (units (un known) date) unknown) (unknown) (no (unknown) (unknown) Medication (units (unk nown) date) Instructions unknown) Recorded Confirmed (unknown) (no (unknown) (unknown) Medication (units (unk nown) date) Instructions unknown) Recorded (unknown) (no (unknown) (unknown) Miscellaneous,Do (units (unknown) date) MD roman [Primary unknown) Care Provider] (unknown) (no (unknown) (unknown) Mode of arrival: (units (unknown) date) Wheelchair unknown) (unknown) (no (unknown) (unknown) No Action (units (unkn own) date) unknown) (unknown) (no (unknown) (unknown) Ordered: (units (unkno wn) date) unknown) (unknown) (no (unknown) (unknown) Orders (units (unkno wn) date) unknown) (unknown) (no (unknown) (unknown) Oxygen Delivery (units (unknown) date) Method 02/07/22 unknown) 08:10 (unknown) (no (unknown) (unknown) Oxygen Delivery (units (unknown) date) Method Room Air unknown) (unknown) (no (unknown) (unknown) Patient History (units (unknown) date) unknown) (unknown) (no (unknown) (unknown) Patient: (units (unkno wn) date) Vanessa Mills unknown) B MR#: (unknown) (no (unknown) (unknown) Prescriptions: (units (unknown) date) unknown) (unknown) (no (unknown) (unknown) Previous Rx's (units ( unknown) date) unknown) (unknown) (no (unknown) (unknown) Procalcitonin (units ( unknown) date) Stat unknown) (unknown) (no (unknown) (unknown) Pulse Oximetry (units (unknown) date) 97 02/07/22 08:10 unknown) (unknown) (no (unknown) (unknown) Pulse Oximetry (units (unknown) date) 97 unknown) (unknown) (no (unknown) (unknown) Pulse Rate 121 H (units (unknown) date) 02/07/22 08:10 unknown) (unknown) (no (unknown) (unknown) Pulse Rate 121 H (units (unknown) date) unknown) (unknown) (no (unknown) (unknown) Referrals: (units (unk nown) date) unknown) (unknown) (no (unknown) (unknown) Related Data (units (u nknown) date) unknown) (unknown) (no (unknown) (unknown) Respiratory Rate (units (unknown) date) 33 H 02/07/22 unknown) 08:10 (unknown) (no (unknown) (unknown) Respiratory Rate (units (unknown) date) 33 H unknown) (unknown) (no (unknown) (unknown) Result diagrams: (units (unknown) date) unknown) (unknown) (no (unknown) (unknown) Signed By: (units (unk nown) date) unknown) (unknown) (no (unknown) (unknown) Smoking Status: (units (unknown) date) Never smoker unknown) (unknown) (no (unknown) (unknown) Social History (units (unknown) date) unknown) (unknown) (no (unknown) (unknown) Source: patient (units (unknown) date) unknown) (unknown) (no (unknown) (unknown) Stated (units (unkno wn) date) Complaint: she unknown) has wounds on head, not eating, mucas in nose (unknown) (no (unknown) (unknown) Substance Use (units ( unknown) date) Type: does not unknown) use (unknown) (no (unknown) (unknown) Temperature (units (un known) date) 101.8 F H unknown) 02/07/22 08:10 (unknown) (no (unknown) (unknown) Temperature (units (un known) date) 101.8 F H unknown) (unknown) (no (unknown) (unknown) Time Seen by (units (u nknown) date) Provider: unknown) 02/07/22 08:08 (unknown) (no (unknown) (unknown) Vital Signs - 8 (units (unknown) date) hr unknown) (unknown) (no (unknown) (unknown) Vital Signs (units (un known) date) unknown) (unknown) (no (unknown) (unknown) Vital signs: (units (u nknown) date) unknown) (unknown) (no (unknown) (unknown) [Embedded Image (units (unknown) date) Not Available] unknown) (unknown) (no (unknown) (unknown) apixaban 5 mg (units ( unknown) date) tablet (Eliquis) unknown) 5 mg PO BID 08/14/18 03/22/19 (unknown) (no (unknown) (unknown) fluoxetine 10 mg (units (unknown) date) capsule 10 mg PO unknown) DAILY #90 caps 08/28/19 (unknown) (no (unknown) (unknown) fluoxetine 10 mg (units (unknown) date) capsule unknown) (unknown) (no (unknown) (unknown) mirtazapine (units (un known) date) AdvReac unknown) Intermediate Rash severe Verified 01/30/22 06:52 (unknown) (no (unknown) (unknown) olanzapine 15 mg (units (unknown) date) tablet 15 mg PO unknown) BEDTIME #90 tabs 09/23/20 (unknown) (no (unknown) (unknown) olanzapine 15 mg (units (unknown) date) tablet unknown) Result panel 444 (unknown) (no (unknown) (unknown) (no value) (units (unk nown) date) unknown) (unknown) (no (unknown) (unknown) 08:10 (units (unkno wn) date) unknown) (unknown) (no (unknown) (unknown) 10 mg PO DAILY (units (unknown) date) Qty: 90 1RF unknown) (unknown) (no (unknown) (unknown) 02/07/22 08:09 (units (unknown) date) unknown) (unknown) (no (unknown) (unknown) 02/07/22 08:11 (units (unknown) date) unknown) (unknown) (no (unknown) (unknown) 02/07/22 08:27 (units (unknown) date) unknown) (unknown) (no (unknown) (unknown) 02/07/22 (units (unkno wn) date) unknown) (unknown) (no (unknown) (unknown) 15 mg PO BEDTIME (units (unknown) date) Qty: 90 1RF unknown) (unknown) (no (unknown) (unknown) 5 mg PO BID (units (un known) date) unknown) (unknown) (no (unknown) (unknown) Age/Sex: 31 / F (units (unknown) date) unknown) (unknown) (no (unknown) (unknown) Allergies (units (unkn own) date) unknown) (unknown) (no (unknown) (unknown) Allergy/AdvReac (units (unknown) date) Type Severity unknown) Reaction Status Date / Time (unknown) (no (unknown) (unknown) Blood Culture (units ( unknown) date) Stat unknown) (unknown) (no (unknown) (unknown) Blood Pressure (units (unknown) date) 100/57 L 02/07/22 unknown) 08:10 (unknown) (no (unknown) (unknown) Blood Pressure (units (unknown) date) 100/57 L unknown) (unknown) (no (unknown) (unknown) CBC Auto Diff (units ( unknown) date) [Complete Blood unknown) Count AUTO DIFF] Stat (unknown) (no (unknown) (unknown) CMP (units (unkno wn) date) [Comprehensive unknown) Metabolic Panel] Stat (unknown) (no (unknown) (unknown) Chest [XR chest (units (unknown) date) 1V] Stat unknown) (unknown) (no (unknown) (unknown) Chief Complaint: (units (unknown) date) Altered Mental unknown) Status (unknown) (no (unknown) (unknown) Course (units (unkno wn) date) unknown) (unknown) (no (unknown) (unknown) Covid-19 + FLU (units (unknown) date) A/B + RSV - PCR unknown) Stat (unknown) (no (unknown) (unknown) : 1990 (units (unknown) date) Acct:[id number] unknown) (unknown) (no (unknown) (unknown) Date of Service: (units (unknown) date) 02/07/22 unknown) (unknown) (no (unknown) (unknown) Departure (units (unkn own) date) unknown) (unknown) (no (unknown) (unknown) Discharge Plan (units (unknown) date) unknown) (unknown) (no (unknown) (unknown) ED Orders (units (unkn own) date) unknown) (unknown) (no (unknown) (unknown) ER Physician: (units ( unknown) date) Amelia Unger unknown) D.O. (unknown) (no (unknown) (unknown) Eliquis 5 mg (units (u nknown) date) tablet unknown) (unknown) (no (unknown) (unknown) Emergency Report (units (unknown) date) unknown) (unknown) (no (unknown) (unknown) Exam (units (unkno wn) date) unknown) (unknown) (no (unknown) (unknown) General (units (unkno wn) date) unknown) (unknown) (no (unknown) (unknown) HPI - Fever (units (un known) date) unknown) (unknown) (no (unknown) (unknown) HPI Narrative: (units (unknown) date) unknown) (unknown) (no (unknown) (unknown) History of (units (unk nown) date) Present Illness unknown) (unknown) (no (unknown) (unknown) Home Medications (units (unknown) date) unknown) (unknown) (no (unknown) (unknown) Initial Vital (units ( unknown) date) Signs unknown) (unknown) (no (unknown) (unknown) Initial Vital (units ( unknown) date) Signs: unknown) (unknown) (no (unknown) (unknown) [facility] (units (unknown) date) [address] [place] [address] unknown) [place] [address] (unknown) (no (unknown) (unknown) Lab Data (units (unkno wn) date) unknown) (unknown) (no (unknown) (unknown) Lactate (Lactic (units (unknown) date) Acid) Stat unknown) (unknown) (no (unknown) (unknown) [id number] (units (unk nown) date) unknown) (unknown) (no (unknown) (unknown) MDM - Fever (units (un known) date) unknown) (unknown) (no (unknown) (unknown) Medication (units (unk nown) date) Instructions unknown) Recorded Confirmed (unknown) (no (unknown) (unknown) Medication (units (unk nown) date) Instructions unknown) Recorded (unknown) (no (unknown) (unknown) Miscellaneous,Do (units (unknown) date) MD roman [Primary unknown) Care Provider] (unknown) (no (unknown) (unknown) Mode of arrival: (units (unknown) date) Wheelchair unknown) (unknown) (no (unknown) (unknown) No Action (units (unkn own) date) unknown) (unknown) (no (unknown) (unknown) Ordered: (units (unkno wn) date) unknown) (unknown) (no (unknown) (unknown) Orders (units (unkno wn) date) unknown) (unknown) (no (unknown) (unknown) Oxygen Delivery (units (unknown) date) Method 02/07/22 unknown) 08:10 (unknown) (no (unknown) (unknown) Oxygen Delivery (units (unknown) date) Method Room Air unknown) (unknown) (no (unknown) (unknown) Patient History (units (unknown) date) unknown) (unknown) (no (unknown) (unknown) Patient is a (units (u nknown) date) 31-year-old unknown) female history of schizophrenia language barrier (unknown) (no (unknown) (unknown) Patient: (units (unkno wn) date) Vanessa Mills unknown) B MR#: (unknown) (no (unknown) (unknown) Prescriptions: (units (unknown) date) unknown) (unknown) (no (unknown) (unknown) Previous Rx's (units ( unknown) date) unknown) (unknown) (no (unknown) (unknown) Procalcitonin (units ( unknown) date) Stat unknown) (unknown) (no (unknown) (unknown) Pulse Oximetry (units (unknown) date) 97 02/07/22 08:10 unknown) (unknown) (no (unknown) (unknown) Pulse Oximetry (units (unknown) date) 97 unknown) (unknown) (no (unknown) (unknown) Pulse Rate 121 H (units (unknown) date) 02/07/22 08:10 unknown) (unknown) (no (unknown) (unknown) Pulse Rate 121 H (units (unknown) date) unknown) (unknown) (no (unknown) (unknown) Referrals: (units (unk nown) date) unknown) (unknown) (no (unknown) (unknown) Related Data (units (u nknown) date) unknown) (unknown) (no (unknown) (unknown) Respiratory Rate (units (unknown) date) 33 H 02/07/22 unknown) 08:10 (unknown) (no (unknown) (unknown) Respiratory Rate (units (unknown) date) 33 H unknown) (unknown) (no (unknown) (unknown) Result diagrams: (units (unknown) date) unknown) (unknown) (no (unknown) (unknown) Signed By: (units (unk nown) date) unknown) (unknown) (no (unknown) (unknown) Smoking Status: (units (unknown) date) Never smoker unknown) (unknown) (no (unknown) (unknown) Social History (units (unknown) date) unknown) (unknown) (no (unknown) (unknown) Source: patient (units (unknown) date) unknown) (unknown) (no (unknown) (unknown) Stated (units (unkno wn) date) Complaint: she unknown) has wounds on head, not eating, mucas in nose (unknown) (no (unknown) (unknown) Substance Use (units ( unknown) date) Type: does not unknown) use (unknown) (no (unknown) (unknown) Temperature (units (un known) date) 101.8 F H unknown) 02/07/22 08:10 (unknown) (no (unknown) (unknown) Temperature (units (un known) date) 101.8 F H unknown) (unknown) (no (unknown) (unknown) Time Seen by (units (u nknown) date) Provider: unknown) 02/07/22 08:08 (unknown) (no (unknown) (unknown) Vital Signs - 8 (units (unknown) date) hr unknown) (unknown) (no (unknown) (unknown) Vital Signs (units (un known) date) unknown) (unknown) (no (unknown) (unknown) Vital signs: (units (u nknown) date) unknown) (unknown) (no (unknown) (unknown) [Embedded Image (units (unknown) date) Not Available] unknown) (unknown) (no (unknown) (unknown) apixaban 5 mg (units ( unknown) date) tablet (Eliquis) unknown) 5 mg PO BID 08/14/18 03/22/19 (unknown) (no (unknown) (unknown) fluoxetine 10 mg (units (unknown) date) capsule 10 mg PO unknown) DAILY #90 caps 08/28/19 (unknown) (no (unknown) (unknown) fluoxetine 10 mg (units (unknown) date) capsule unknown) (unknown) (no (unknown) (unknown) home. She (units (unkn own) date) developed a fever unknown) last night she is not eating she continues to drink (unknown) (no (unknown) (unknown) mirtazapine (units (un known) date) AdvReac unknown) Intermediate Rash severe Verified 01/30/22 06:52 (unknown) (no (unknown) (unknown) olanzapine 15 mg (units (unknown) date) tablet 15 mg PO unknown) BEDTIME #90 tabs 09/23/20 (unknown) (no (unknown) (unknown) olanzapine 15 mg (units (unknown) date) tablet unknown) (unknown) (no (unknown) (unknown) primary history (units (unknown) date) is taken from mom unknown) using language line. Patient has severe (unknown) (no (unknown) (unknown) schizophrenia (units ( unknown) date) she has frequent unknown) itching she has scratched her head so often the (unknown) (no (unknown) (unknown) some. She (units (unkn own) date) started spitting unknown) more. Her behavior has changed. She sniffing (unknown) (no (unknown) (unknown) [facility] unknown) she said she got an IV and was discharged (unknown) (no (unknown) (unknown) wounds on her (units ( unknown) date) head or actually unknown) getting worse she does not go here. They tried Result panel 445 (unknown) (no date) (unknown) (unknown) > 60 ml/min (unkn own) (unknown) (no date) (unknown) (unknown) > 60 ml/min (unkn own) (unknown) (no date) (unknown) (unknown) 0.5 mg/dl (unkn own) (unknown) (no date) (unknown) (unknown) 0.64 mg/dl (unkn own) (unknown) (no date) (unknown) (unknown) 0.8 (units unknown) (unknown) (unknown) (no date) (unknown) (unknown) 1.6 mmol/l (unkn own) (unknown) (no date) (unknown) (unknown) 113 mg/dl (unkn own) (unknown) (no date) (unknown) (unknown) 113 mg/dl (unkn own) (unknown) (no date) (unknown) (unknown) 134 mmol/l (unkn own) (unknown) (no date) (unknown) (unknown) 14 mg/dl (unkn own) (unknown) (no date) (unknown) (unknown) 21.9 (units unknown) (unknown) (unknown) (no date) (unknown) (unknown) 23 mmol/l (unkn own) (unknown) (no date) (unknown) (unknown) 3.6 g/dl (unkn own) (unknown) (no date) (unknown) (unknown) 3.6 mmol/l (unkn own) (unknown) (no date) (unknown) (unknown) 3.6 mmol/l (unkn own) (unknown) (no date) (unknown) (unknown) 33 iu/l (unkn own) (unknown) (no date) (unknown) (unknown) 4.3 g/dl (unkn own) (unknown) (no date) (unknown) (unknown) 46 u/l (unkn own) (unknown) (no date) (unknown) (unknown) 7.9 g/dl (unkn own) (unknown) (no date) (unknown) (unknown) 8.3 mg/dl (unkn own) (unknown) (no date) (unknown) (unknown) 87 iu/l (unkn own) (unknown) (no date) (unknown) (unknown) 87 iu/l (unkn own) (unknown) (no date) (unknown) (unknown) 99 mmol/l (unkn own) Result panel 446 (unknown) (no (unknown) (unknown) (no value) (units (unk nown) date) unknown) (unknown) (no (unknown) (unknown) 08:10 (units (unkno wn) date) unknown) (unknown) (no (unknown) (unknown) 08:27 08:27 08:27 (units (unknown) date) unknown) (unknown) (no (unknown) (unknown) 10 mg PO DAILY (units (unknown) date) Qty: 90 1RF unknown) (unknown) (no (unknown) (unknown) 02/07/22 08:09 (units (unknown) date) unknown) (unknown) (no (unknown) (unknown) 02/07/22 08:11 (units (unknown) date) unknown) (unknown) (no (unknown) (unknown) 02/07/22 08:27 (units (unknown) date) unknown) (unknown) (no (unknown) (unknown) 02/07/22 08:40 (units (unknown) date) unknown) (unknown) (no (unknown) (unknown) 02/07/22 02/07/22 (units (unknown) date) 02/07/22 unknown) Range/Units (unknown) (no (unknown) (unknown) 02/07/22 (units (unkno wn) date) unknown) (unknown) (no (unknown) (unknown) 15 mg PO BEDTIME (units (unknown) date) Qty: 90 1RF unknown) (unknown) (no (unknown) (unknown) 5 mg PO BID (units (un known) date) unknown) (unknown) (no (unknown) (unknown) 825 u/l (unkno wn) date) (unknown) (no (unknown) (unknown) ABDOMEN: Soft, (units (unknown) date) nontender. unknown) Normoactive bowel sounds all 4 quadrants. No (unknown) (no (unknown) (unknown) ALT 33 (<35) IU/L (units (unknown) date) unknown) (unknown) (no (unknown) (unknown) AST 87 H (14-36) (units (unknown) date) IU/L unknown) (unknown) (no (unknown) (unknown) Age/Sex: 31 / F (units (unknown) date) unknown) (unknown) (no (unknown) (unknown) Albumin 3.6 (units (un known) date) (3.5-5.0) g/dL unknown) (unknown) (no (unknown) (unknown) Albumin/Globulin (units (unknown) date) Ratio 0.8 L unknown) (1.0-2.8) (unknown) (no (unknown) (unknown) Alkaline (units (unkno wn) date) Phosphatase 46 unknown) (38-126) U/L (unknown) (no (unknown) (unknown) Allergies (units (unkn own) date) unknown) (unknown) (no (unknown) (unknown) Allergy/AdvReac (units (unknown) date) Type Severity unknown) Reaction Status Date / Time (unknown) (no (unknown) (unknown) BUN 14 (7-17) (units ( unknown) date) mg/dL unknown) (unknown) (no (unknown) (unknown) BUN/Creatinine (units (unknown) date) Ratio 21.9 (6-22) unknown) (unknown) (no (unknown) (unknown) Baso # (Auto) 0 (units (unknown) date) (0-100) /uL unknown) (unknown) (no (unknown) (unknown) Baso % (Auto) 0.5 (units (unknown) date) (0-2) % unknown) (unknown) (no (unknown) (unknown) Blood Culture (units ( unknown) date) Stat unknown) (unknown) (no (unknown) (unknown) Blood Pressure (units (unknown) date) 100/57 L 02/07/22 unknown) 08:10 (unknown) (no (unknown) (unknown) Blood Pressure (units (unknown) date) 100/57 L unknown) (unknown) (no (unknown) (unknown) CARDIOVASCULAR: (units (unknown) date) Regular rate and unknown) rhythm without murmurs, rubs or gallops. (unknown) (no (unknown) (unknown) CBC Auto Diff (units ( unknown) date) [Complete Blood unknown) Count AUTO DIFF] Stat (unknown) (no (unknown) (unknown) CMP (units (unkno wn) date) [Comprehensive unknown) Metabolic Panel] Stat (unknown) (no (unknown) (unknown) Calcium 8.3 L (units ( unknown) date) (8.4-10.2) mg/dL unknown) (unknown) (no (unknown) (unknown) Carbon Dioxide 23 (units (unknown) date) (22-32) mmol/L unknown) (unknown) (no (unknown) (unknown) Ceftriaxone (units (un known) date) Sodium 2,000 mg/ unknown) (Sodium Chloride) 100 mls @ 200 mls/hr IV NOW ONE (unknown) (no (unknown) (unknown) Chest [XR chest (units (unknown) date) 1V] Stat unknown) (unknown) (no (unknown) (unknown) Chief Complaint: (units (unknown) date) Altered Mental unknown) Status (unknown) (no (unknown) (unknown) Chloride 99 (units (un known) date) (98-107) mmol/L unknown) (unknown) (no (unknown) (unknown) Course (units (unkno wn) date) unknown) (unknown) (no (unknown) (unknown) Covid-19 + FLU (units (unknown) date) A/B + RSV - PCR unknown) Stat (unknown) (no (unknown) (unknown) Creatinine 0.64 (units (unknown) date) (0.52-1.04) mg/dL unknown) (unknown) (no (unknown) (unknown) : 1990 (units (unknown) date) Acct:[id number] unknown) (unknown) (no (unknown) (unknown) Date of Service: (units (unknown) date) 02/07/22 unknown) (unknown) (no (unknown) (unknown) Departure (units (unkn own) date) unknown) (unknown) (no (unknown) (unknown) Discharge Plan (units (unknown) date) unknown) (unknown) (no (unknown) (unknown) Discontinued (units (u nknown) date) Medications unknown) (unknown) (no (unknown) (unknown) ED Orders (units (unkn own) date) unknown) (unknown) (no (unknown) (unknown) ER Physician: (units ( unknown) date) Amelia Unger unknown) D.O. (unknown) (no (unknown) (unknown) EXTREMITIES: (units (u nknown) date) Normal range of unknown) motion, no clubbing or edema. Neurovascularly (unknown) (no (unknown) (unknown) Eliquis 5 mg (units (u nknown) date) tablet unknown) (unknown) (no (unknown) (unknown) Emergency Report (units (unknown) date) unknown) (unknown) (no (unknown) (unknown) Eos # (Auto) 0 (units (unknown) date) (0-450) /uL unknown) (unknown) (no (unknown) (unknown) Eos % (Auto) 0.0 (units (unknown) date) L (2-4) % unknown) (unknown) (no (unknown) (unknown) Estimated GFR > (units (unknown) date) 60 (>60) mL/min unknown) (unknown) (no (unknown) (unknown) Exam (units (unkno wn) date) unknown) (unknown) (no (unknown) (unknown) GENERAL: Thin (units ( unknown) date) 31-year-old female unknown) (unknown) (no (unknown) (unknown) : Incontinent (units (unknown) date) of urine unknown) (unknown) (no (unknown) (unknown) General (units (unkno wn) date) unknown) (unknown) (no (unknown) (unknown) Globulin 4.3 H (units (unknown) date) (1.7-4.1) g/dL unknown) (unknown) (no (unknown) (unknown) Glucose 113 H (units ( unknown) date) (70-100) mg/dL unknown) (unknown) (no (unknown) (unknown) HEENT: Head (units (un known) date) atraumatic,EOMI, unknown) pupils reactive, multiple face scratches mostly on (unknown) (no (unknown) (unknown) HPI - Fever (units (un known) date) unknown) (unknown) (no (unknown) (unknown) HPI Narrative: (units (unknown) date) unknown) (unknown) (no (unknown) (unknown) Hct 32.5 L (units (unk nown) date) (36-46) % unknown) (unknown) (no (unknown) (unknown) Hgb 10.9 L (units (unk nown) date) (12.0-16.0) g/dL unknown) (unknown) (no (unknown) (unknown) History of (units (unk nown) date) Present Illness unknown) (unknown) (no (unknown) (unknown) Home Medications (units (unknown) date) unknown) (unknown) (no (unknown) (unknown) Initial Vital (units ( unknown) date) Signs unknown) (unknown) (no (unknown) (unknown) Initial Vital (units ( unknown) date) Signs: unknown) (unknown) (no (unknown) (unknown) [facility] (units (unknown) date) [address] [place] [address] Street unknown) [place] [address] (unknown) (no (unknown) (unknown) Ketorolac (units (unkn own) date) Tromethamine unknown) (Ketorolac 30 Mg/Ml Vial) 15 mg IV NOW ONE (unknown) (no (unknown) (unknown) Lab Data (units (unkno wn) date) unknown) (unknown) (no (unknown) (unknown) Lab Results (units (un known) date) unknown) (unknown) (no (unknown) (unknown) Labs: (units (unkno wn) date) unknown) (unknown) (no (unknown) (unknown) Lactate (Lactic (units (unknown) date) Acid) Stat unknown) (unknown) (no (unknown) (unknown) Lactate 1.6 (units (un known) date) (0.7-2.1) mmol/L unknown) (unknown) (no (unknown) (unknown) Lymph # (Auto) (units (unknown) date) 900 L (1693-9209) unknown) /uL (unknown) (no (unknown) (unknown) Lymph % (Auto) (units (unknown) date) 20.7 L (25-40) % unknown) (unknown) (no (unknown) (unknown) [id number] (units (unk nown) date) unknown) (unknown) (no (unknown) (unknown) MCH 28.7 (26-34) (units (unknown) date) PG unknown) (unknown) (no (unknown) (unknown) MCHC 33.5 (30-36) (units (unknown) date) % unknown) (unknown) (no (unknown) (unknown) MCV 85.7 (80-100) (units (unknown) date) fL unknown) (unknown) (no (unknown) (unknown) MDM - Fever (units (un known) date) unknown) (unknown) (no (unknown) (unknown) Medication (units (unk nown) date) Instructions unknown) Recorded Confirmed (unknown) (no (unknown) (unknown) Medication (units (unk nown) date) Instructions unknown) Recorded (unknown) (no (unknown) (unknown) Miscellaneous,Doc (units (unknown) date) MD ori [Primary unknown) Care Provider] (unknown) (no (unknown) (unknown) Mode of arrival: (units (unknown) date) Wheelchair unknown) (unknown) (no (unknown) (unknown) Butts # (Auto) 500 (units (unknown) date) (0-900) /uL unknown) (unknown) (no (unknown) (unknown) Butts % (Auto) (units ( unknown) date) 10.1 (3-14) % unknown) (unknown) (no (unknown) (unknown) NEUROLOGICAL: (units ( unknown) date) Moving all unknown) extremities (unknown) (no (unknown) (unknown) Neut # (Auto) (units ( unknown) date) 3100 (4575-3279) unknown) /uL (unknown) (no (unknown) (unknown) Neut % (Auto) (units ( unknown) date) 68.7 (50-75) % unknown) (unknown) (no (unknown) (unknown) No Action (units (unkn own) date) unknown) (unknown) (no (unknown) (unknown) Ordered: (units (unkno wn) date) unknown) (unknown) (no (unknown) (unknown) Orders (units (unkno wn) date) unknown) (unknown) (no (unknown) (unknown) Oxygen Delivery (units (unknown) date) Method 02/07/22 unknown) 08:10 (unknown) (no (unknown) (unknown) Oxygen Delivery (units (unknown) date) Method Room Air unknown) (unknown) (no (unknown) (unknown) Patient History (units (unknown) date) unknown) (unknown) (no (unknown) (unknown) Patient is a (units (u nknown) date) 31-year-old female unknown) history of schizophrenia language barrier (unknown) (no (unknown) (unknown) Patient: (units (unkno wn) date) [place]essa [place] unknown) B MR#: (unknown) (no (unknown) (unknown) Plt Count 155 (units ( unknown) date) (150-400) X103/uL unknown) (unknown) (no (unknown) (unknown) Potassium 3.6 (units ( unknown) date) (3.4-5.1) mmol/L unknown) (unknown) (no (unknown) (unknown) Prescriptions: (units (unknown) date) unknown) (unknown) (no (unknown) (unknown) Previous Rx's (units ( unknown) date) unknown) (unknown) (no (unknown) (unknown) Procalcitonin (units ( unknown) date) Stat unknown) (unknown) (no (unknown) (unknown) Pulse Oximetry 97 (units (unknown) date) 02/07/22 08:10 unknown) (unknown) (no (unknown) (unknown) Pulse Oximetry 97 (units (unknown) date) unknown) (unknown) (no (unknown) (unknown) Pulse Rate 121 H (units (unknown) date) 02/07/22 08:10 unknown) (unknown) (no (unknown) (unknown) Pulse Rate 121 H (units (unknown) date) unknown) (unknown) (no (unknown) (unknown) RBC 3.79 L (units (unk nown) date) (4.0-5.2) X106/uL unknown) (unknown) (no (unknown) (unknown) RDW 14.1 (units (unkno wn) date) (11.6-14.8) % unknown) (unknown) (no (unknown) (unknown) RESPIRATORY: (units (u nknown) date) Breath sounds unknown) equal bilaterally, no wheezes rales or rhonchi. (unknown) (no (unknown) (unknown) ROS Unobtainable: (units (unknown) date) All systems unknown) reviewed + are unremarkable except as noted in HPI (unknown) (no (unknown) (unknown) Referrals: (units (unk nown) date) unknown) (unknown) (no (unknown) (unknown) Related Data (units (u nknown) date) unknown) (unknown) (no (unknown) (unknown) Respiratory Rate (units (unknown) date) 33 H 02/07/22 unknown) 08:10 (unknown) (no (unknown) (unknown) Respiratory Rate (units (unknown) date) 33 H unknown) (unknown) (no (unknown) (unknown) Result diagrams: (units (unknown) date) unknown) (unknown) (no (unknown) (unknown) Review of Systems (units (unknown) date) unknown) (unknown) (no (unknown) (unknown) SKIN: Severe (units (u nknown) date) scalp abrasions unknown) not growing hair mild drainage erythema facial (unknown) (no (unknown) (unknown) Signed By: (units (unk nown) date) unknown) (unknown) (no (unknown) (unknown) Smoking Status: (units (unknown) date) Never smoker unknown) (unknown) (no (unknown) (unknown) Social History (units (unknown) date) unknown) (unknown) (no (unknown) (unknown) Sodium 134 L (units (u nknown) date) (137-145) mmol/L unknown) (unknown) (no (unknown) (unknown) Sodium Chloride (units (unknown) date) (Normal Saline unknown) 0.9%) 1,000 mls @ 1,000 mls/hr IV BOLUS ONE (unknown) (no (unknown) (unknown) Source: patient (units (unknown) date) unknown) (unknown) (no (unknown) (unknown) Stated Complaint: (units (unknown) date) she has wounds on unknown) head, not eating, mucas in nose (unknown) (no (unknown) (unknown) Stop: 02/07/22 (units (unknown) date) 08:48 unknown) (unknown) (no (unknown) (unknown) Stop: 02/07/22 (units (unknown) date) 08:50 unknown) (unknown) (no (unknown) (unknown) Stop: 02/07/22 (units (unknown) date) 09:44 unknown) (unknown) (no (unknown) (unknown) Stop: 02/07/22 (units (unknown) date) 09:48 unknown) (unknown) (no (unknown) (unknown) Substance Use (units ( unknown) date) Type: does not use unknown) (unknown) (no (unknown) (unknown) Temperature 101.8 (units (unknown) date) F H 02/07/22 08:10 unknown) (unknown) (no (unknown) (unknown) Temperature 101.8 (units (unknown) date) F H unknown) (unknown) (no (unknown) (unknown) Time Seen by (units (u nknown) date) Provider: 02/07/22 unknown) 08:08 (unknown) (no (unknown) (unknown) Total Bilirubin (units (unknown) date) 0.5 (0.2-1.3) unknown) mg/dL (unknown) (no (unknown) (unknown) Total Protein 7.9 (units (unknown) date) (6.3-8.2) g/dL unknown) (unknown) (no (unknown) (unknown) Troponin + CK (units ( unknown) date) Cardiac Panel Stat unknown) (unknown) (no (unknown) (unknown) Vancomycin HCl (units (unknown) date) (Vancomycin) 750 unknown) mg in 150 mls @ 150 mls/hr IV NOW ONE (unknown) (no (unknown) (unknown) Vital Signs - 8 (units (unknown) date) hr unknown) (unknown) (no (unknown) (unknown) Vital Signs (units (un known) date) unknown) (unknown) (no (unknown) (unknown) Vital signs: (units (u nknown) date) unknown) (unknown) (no (unknown) (unknown) WBC 4.5 (units (unkno wn) date) (4.5-11.0) X103/uL unknown) (unknown) (no (unknown) (unknown) [Embedded Image (units (unknown) date) Not Available] unknown) (unknown) (no (unknown) (unknown) and below, (units (unk nown) date) Unobtainable due unknown) to medical condition and Unobtainable due to mental (unknown) (no (unknown) (unknown) apixaban 5 mg (units ( unknown) date) tablet (Eliquis) 5 unknown) mg PO BID 08/14/18 03/22/19 (unknown) (no (unknown) (unknown) condition (units (unkn own) date) unknown) (unknown) (no (unknown) (unknown) fluoxetine 10 mg (units (unknown) date) capsule 10 mg PO unknown) DAILY #90 caps 08/28/19 (unknown) (no (unknown) (unknown) fluoxetine 10 mg (units (unknown) date) capsule unknown) (unknown) (no (unknown) (unknown) guarding or (units (un known) date) rebound. unknown) (unknown) (no (unknown) (unknown) home. She (units (unkn own) date) developed a fever unknown) last night she is not eating she continues to drink (unknown) (no (unknown) (unknown) intact (units (unkno wn) date) unknown) (unknown) (no (unknown) (unknown) keeps spitting. (units (unknown) date) She denies any unknown) pain. Mom reports cough. (unknown) (no (unknown) (unknown) mirtazapine (units (un known) date) AdvReac unknown) Intermediate Rash severe Verified 01/30/22 06:52 (unknown) (no (unknown) (unknown) olanzapine 15 mg (units (unknown) date) tablet 15 mg PO unknown) BEDTIME #90 tabs 09/23/20 (unknown) (no (unknown) (unknown) olanzapine 15 mg (units (unknown) date) tablet unknown) (unknown) (no (unknown) (unknown) primary history (units (unknown) date) is taken from mom unknown) using language line. Patient has severe (unknown) (no (unknown) (unknown) schizophrenia she (units (unknown) date) has frequent unknown) itching she has scratched her head so often the (unknown) (no (unknown) (unknown) scratches (units (unkn own) date) unknown) (unknown) (no (unknown) (unknown) some. She started (units (unknown) date) spitting more. Her unknown) behavior has changed. She sniffing. She (unknown) (no (unknown) (unknown) the right cheek (units (unknown) date) unknown) (unknown) (no (unknown) (unknown) to go to [facility] (units (unknown) date) general last week unknown) she said she got an IV and was discharged (unknown) (no (unknown) (unknown) wounds on her (units ( unknown) date) head or actually unknown) getting worse she does not go here. They tried Result panel 447 (unknown) (no date) (unknown) (unknown) 825 u/l (unkn own) Result panel 448 (unknown) (no (unknown) (unknown) (no value) (units (unk nown) date) unknown) (unknown) (no (unknown) (unknown) < 0.012 ng/ml (unkno wn) date) (unknown) (no (unknown) (unknown) < 0.012 ng/ml (unkno wn) date) (unknown) (no (unknown) (unknown) 0.2 % (unkno wn) date) (unknown) (no (unknown) (unknown) 08:10 (units (unkno wn) date) unknown) (unknown) (no (unknown) (unknown) 08:22 08:27 08:27 (units (unknown) date) unknown) (unknown) (no (unknown) (unknown) 08:27 (units (unkno wn) date) unknown) (unknown) (no (unknown) (unknown) 1.08 ng/ml (unkno wn) date) (unknown) (no (unknown) (unknown) 1.08 ng/ml (unkno wn) date) (unknown) (no (unknown) (unknown) 10 mg PO DAILY (units (unknown) date) Qty: 90 1RF unknown) (unknown) (no (unknown) (unknown) 02/07/22 08:09 (units (unknown) date) unknown) (unknown) (no (unknown) (unknown) 02/07/22 08:11 (units (unknown) date) unknown) (unknown) (no (unknown) (unknown) 02/07/22 08:27 (units (unknown) date) unknown) (unknown) (no (unknown) (unknown) 02/07/22 08:40 (units (unknown) date) unknown) (unknown) (no (unknown) (unknown) 02/07/22 02/07/22 (units (unknown) date) 02/07/22 unknown) Range/Units (unknown) (no (unknown) (unknown) 02/07/22 (units (unkno wn) date) Range/Units unknown) (unknown) (no (unknown) (unknown) 02/07/22 (units (unkno wn) date) unknown) (unknown) (no (unknown) (unknown) 15 mg PO BEDTIME (units (unknown) date) Qty: 90 1RF unknown) (unknown) (no (unknown) (unknown) 2.02 ng/ml (unkno wn) date) (unknown) (no (unknown) (unknown) 5 mg PO BID (units (un known) date) unknown) (unknown) (no (unknown) (unknown) 825 u/l (unkno wn) date) (unknown) (no (unknown) (unknown) ABDOMEN: Soft, (units (unknown) date) nontender. unknown) Normoactive bowel sounds all 4 quadrants. No (unknown) (no (unknown) (unknown) ALT (<35) IU/L (units (unknown) date) unknown) (unknown) (no (unknown) (unknown) ALT 33 (<35) IU/L (units (unknown) date) unknown) (unknown) (no (unknown) (unknown) AST (14-36) IU/L (units (unknown) date) unknown) (unknown) (no (unknown) (unknown) AST 87 H (14-36) (units (unknown) date) IU/L unknown) (unknown) (no (unknown) (unknown) Age/Sex: 31 / F (units (unknown) date) unknown) (unknown) (no (unknown) (unknown) Albumin (3.5-5.0) (units (unknown) date) g/dL unknown) (unknown) (no (unknown) (unknown) Albumin 3.6 (units (un known) date) (3.5-5.0) g/dL unknown) (unknown) (no (unknown) (unknown) Albumin/Globulin (units (unknown) date) Ratio (1.0-2.8) unknown) (unknown) (no (unknown) (unknown) Albumin/Globulin (units (unknown) date) Ratio 0.8 L unknown) (1.0-2.8) (unknown) (no (unknown) (unknown) Alkaline (units (unkno wn) date) Phosphatase unknown) (38-126) U/L (unknown) (no (unknown) (unknown) Alkaline (units (unkno wn) date) Phosphatase 46 unknown) (38-126) U/L (unknown) (no (unknown) (unknown) Allergies (units (unkn own) date) unknown) (unknown) (no (unknown) (unknown) Allergy/AdvReac (units (unknown) date) Type Severity unknown) Reaction Status Date / Time (unknown) (no (unknown) (unknown) BUN (7-17) mg/dL (units (unknown) date) unknown) (unknown) (no (unknown) (unknown) BUN 14 (7-17) (units ( unknown) date) mg/dL unknown) (unknown) (no (unknown) (unknown) BUN/Creatinine (units (unknown) date) Ratio (6-22) unknown) (unknown) (no (unknown) (unknown) BUN/Creatinine (units (unknown) date) Ratio 21.9 (6-22) unknown) (unknown) (no (unknown) (unknown) Baso # (Auto) (units ( unknown) date) (0-100) /uL unknown) (unknown) (no (unknown) (unknown) Baso # (Auto) 0 (units (unknown) date) (0-100) /uL unknown) (unknown) (no (unknown) (unknown) Baso % (Auto) (units ( unknown) date) (0-2) % unknown) (unknown) (no (unknown) (unknown) Baso % (Auto) 0.5 (units (unknown) date) (0-2) % unknown) (unknown) (no (unknown) (unknown) Blood Culture (units ( unknown) date) Stat unknown) (unknown) (no (unknown) (unknown) Blood Pressure (units (unknown) date) 100/57 L 02/07/22 unknown) 08:10 (unknown) (no (unknown) (unknown) Blood Pressure (units (unknown) date) 100/57 L unknown) (unknown) (no (unknown) (unknown) CARDIOVASCULAR: (units (unknown) date) Regular rate and unknown) rhythm without murmurs, rubs or gallops. (unknown) (no (unknown) (unknown) CBC Auto Diff (units ( unknown) date) [Complete Blood unknown) Count AUTO DIFF] Stat (unknown) (no (unknown) (unknown) CMP (units (unkno wn) date) [Comprehensive unknown) Metabolic Panel] Stat (unknown) (no (unknown) (unknown) Calcium (units (unkno wn) date) (8.4-10.2) mg/dL unknown) (unknown) (no (unknown) (unknown) Calcium 8.3 L (units ( unknown) date) (8.4-10.2) mg/dL unknown) (unknown) (no (unknown) (unknown) Carbon Dioxide (units (unknown) date) (22-32) mmol/L unknown) (unknown) (no (unknown) (unknown) Carbon Dioxide 23 (units (unknown) date) (22-32) mmol/L unknown) (unknown) (no (unknown) (unknown) Ceftriaxone (units (un known) date) Sodium 2,000 mg/ unknown) (Sodium Chloride) 100 mls @ 200 mls/hr IV NOW ONE (unknown) (no (unknown) (unknown) Chest [XR chest (units (unknown) date) 1V] Stat unknown) (unknown) (no (unknown) (unknown) Chief Complaint: (units (unknown) date) Altered Mental unknown) Status (unknown) (no (unknown) (unknown) Chloride (98-107) (units (unknown) date) mmol/L unknown) (unknown) (no (unknown) (unknown) Chloride 99 (units (un known) date) (98-107) mmol/L unknown) (unknown) (no (unknown) (unknown) Course (units (unkno wn) date) unknown) (unknown) (no (unknown) (unknown) Covid-19 + FLU (units (unknown) date) A/B + RSV - PCR unknown) Stat (unknown) (no (unknown) (unknown) Creatinine (units (unk nown) date) (0.52-1.04) mg/dL unknown) (unknown) (no (unknown) (unknown) Creatinine 0.64 (units (unknown) date) (0.52-1.04) mg/dL unknown) (unknown) (no (unknown) (unknown) : 1990 (units (unknown) date) Acct:[id number] unknown) (unknown) (no (unknown) (unknown) Date of Service: (units (unknown) date) 02/07/22 unknown) (unknown) (no (unknown) (unknown) Departure (units (unkn own) date) unknown) (unknown) (no (unknown) (unknown) Discharge Plan (units (unknown) date) unknown) (unknown) (no (unknown) (unknown) Discontinued (units (u nknown) date) Medications unknown) (unknown) (no (unknown) (unknown) ED Orders (units (unkn own) date) unknown) (unknown) (no (unknown) (unknown) ER Physician: (units ( unknown) date) Amelia Unger unknown) D.O. (unknown) (no (unknown) (unknown) EXTREMITIES: (units (u nknown) date) Normal range of unknown) motion, no clubbing or edema. Neurovascularly (unknown) (no (unknown) (unknown) Eliquis 5 mg (units (u nknown) date) tablet unknown) (unknown) (no (unknown) (unknown) Emergency Report (units (unknown) date) unknown) (unknown) (no (unknown) (unknown) Eos # (Auto) (units (u nknown) date) (0-450) /uL unknown) (unknown) (no (unknown) (unknown) Eos # (Auto) 0 (units (unknown) date) (0-450) /uL unknown) (unknown) (no (unknown) (unknown) Eos % (Auto) (units (u nknown) date) (2-4) % unknown) (unknown) (no (unknown) (unknown) Eos % (Auto) 0.0 (units (unknown) date) L (2-4) % unknown) (unknown) (no (unknown) (unknown) Estimated GFR > (units (unknown) date) 60 (>60) mL/min unknown) (unknown) (no (unknown) (unknown) Estimated GFR (units ( unknown) date) (>60) mL/min unknown) (unknown) (no (unknown) (unknown) Exam (units (unkno wn) date) unknown) (unknown) (no (unknown) (unknown) GENERAL: Thin (units ( unknown) date) 31-year-old female unknown) (unknown) (no (unknown) (unknown) : Incontinent (units (unknown) date) of urine unknown) (unknown) (no (unknown) (unknown) General (units (unkno wn) date) unknown) (unknown) (no (unknown) (unknown) Globulin (units (unkno wn) date) (1.7-4.1) g/dL unknown) (unknown) (no (unknown) (unknown) Globulin 4.3 H (units (unknown) date) (1.7-4.1) g/dL unknown) (unknown) (no (unknown) (unknown) Glucose (70-100) (units (unknown) date) mg/dL unknown) (unknown) (no (unknown) (unknown) Glucose 113 H (units ( unknown) date) (70-100) mg/dL unknown) (unknown) (no (unknown) (unknown) HEENT: Head (units (un known) date) atraumatic,EOMI, unknown) pupils reactive, multiple face scratches mostly on (unknown) (no (unknown) (unknown) HPI - Fever (units (un known) date) unknown) (unknown) (no (unknown) (unknown) HPI Narrative: (units (unknown) date) unknown) (unknown) (no (unknown) (unknown) Hct (36-46) % (units ( unknown) date) unknown) (unknown) (no (unknown) (unknown) Hct 32.5 L (units (unk nown) date) (36-46) % unknown) (unknown) (no (unknown) (unknown) Hgb (12.0-16.0) (units (unknown) date) g/dL unknown) (unknown) (no (unknown) (unknown) Hgb 10.9 L (units (unk nown) date) (12.0-16.0) g/dL unknown) (unknown) (no (unknown) (unknown) History of (units (unk nown) date) Present Illness unknown) (unknown) (no (unknown) (unknown) Home Medications (units (unknown) date) unknown) (unknown) (no (unknown) (unknown) Initial Vital (units ( unknown) date) Signs unknown) (unknown) (no (unknown) (unknown) Initial Vital (units ( unknown) date) Signs: unknown) (unknown) (no (unknown) (unknown) [facility] (units (unknown) date) [address] unknown) [place] [address] (unknown) (no (unknown) (unknown) Ketorolac (units (unkn own) date) Tromethamine unknown) (Ketorolac 30 Mg/Ml Vial) 15 mg IV NOW ONE (unknown) (no (unknown) (unknown) Lab Data (units (unkno wn) date) unknown) (unknown) (no (unknown) (unknown) Lab Results (units (un known) date) unknown) (unknown) (no (unknown) (unknown) Labs: (units (unkno wn) date) unknown) (unknown) (no (unknown) (unknown) Lactate (0.7-2.1) (units (unknown) date) mmol/L unknown) (unknown) (no (unknown) (unknown) Lactate (Lactic (units (unknown) date) Acid) Stat unknown) (unknown) (no (unknown) (unknown) Lactate 1.6 (units (un known) date) (0.7-2.1) mmol/L unknown) (unknown) (no (unknown) (unknown) Last Admin: (units (un known) date) 02/07/22 09:07 unknown) Dose: 15 mg (unknown) (no (unknown) (unknown) Last Admin: (units (un known) date) 02/07/22 09:08 unknown) Dose: 200 mls/hr (unknown) (no (unknown) (unknown) Lymph # (Auto) (units (unknown) date) (5596-6297) /uL unknown) (unknown) (no (unknown) (unknown) Lymph # (Auto) (units (unknown) date) 900 L (6099-2073) unknown) /uL (unknown) (no (unknown) (unknown) Lymph % (Auto) (units (unknown) date) (25-40) % unknown) (unknown) (no (unknown) (unknown) Lymph % (Auto) (units (unknown) date) 20.7 L (25-40) % unknown) (unknown) (no (unknown) (unknown) [id number] (units (unk nown) date) unknown) (unknown) (no (unknown) (unknown) MCH (26-34) PG (units (unknown) date) unknown) (unknown) (no (unknown) (unknown) MCH 28.7 (26-34) (units (unknown) date) PG unknown) (unknown) (no (unknown) (unknown) MCHC (30-36) % (units (unknown) date) unknown) (unknown) (no (unknown) (unknown) MCHC 33.5 (30-36) (units (unknown) date) % unknown) (unknown) (no (unknown) (unknown) MCV (80-100) fL (units (unknown) date) unknown) (unknown) (no (unknown) (unknown) MCV 85.7 (80-100) (units (unknown) date) fL unknown) (unknown) (no (unknown) (unknown) MDM - Fever (units (un known) date) unknown) (unknown) (no (unknown) (unknown) Medication (units (unk nown) date) Instructions unknown) Recorded Confirmed (unknown) (no (unknown) (unknown) Medication (units (unk nown) date) Instructions unknown) Recorded (unknown) (no (unknown) (unknown) Miscellaneous,Doc (units (unknown) date) MD ori [Primary unknown) Care Provider] (unknown) (no (unknown) (unknown) Mode of arrival: (units (unknown) date) Wheelchair unknown) (unknown) (no (unknown) (unknown) Butts # (Auto) (units ( unknown) date) (0-900) /uL unknown) (unknown) (no (unknown) (unknown) Butts # (Auto) 500 (units (unknown) date) (0-900) /uL unknown) (unknown) (no (unknown) (unknown) Butts % (Auto) (units ( unknown) date) (3-14) % unknown) (unknown) (no (unknown) (unknown) Butts % (Auto) (units ( unknown) date) 10.1 (3-14) % unknown) (unknown) (no (unknown) (unknown) NEUROLOGICAL: (units ( unknown) date) Moving all unknown) extremities (unknown) (no (unknown) (unknown) Neut # (Auto) (units ( unknown) date) (8046-6928) /uL unknown) (unknown) (no (unknown) (unknown) Neut # (Auto) (units ( unknown) date) 3100 (2264-5317) unknown) /uL (unknown) (no (unknown) (unknown) Neut % (Auto) (units ( unknown) date) (50-75) % unknown) (unknown) (no (unknown) (unknown) Neut % (Auto) (units ( unknown) date) 68.7 (50-75) % unknown) (unknown) (no (unknown) (unknown) No Action (units (unkn own) date) unknown) (unknown) (no (unknown) (unknown) Ordered: (units (unkno wn) date) unknown) (unknown) (no (unknown) (unknown) Orders (units (unkno wn) date) unknown) (unknown) (no (unknown) (unknown) Oxygen Delivery (units (unknown) date) Method 02/07/22 unknown) 08:10 (unknown) (no (unknown) (unknown) Oxygen Delivery (units (unknown) date) Method Room Air unknown) (unknown) (no (unknown) (unknown) Patient History (units (unknown) date) unknown) (unknown) (no (unknown) (unknown) Patient is a (units (u nknown) date) 31-year-old female unknown) history of schizophrenia language barrier (unknown) (no (unknown) (unknown) Patient: (units (unkno wn) date) [place]essa [place] unknown) B MR#: (unknown) (no (unknown) (unknown) Plt Count (units (unkn own) date) (150-400) X103/uL unknown) (unknown) (no (unknown) (unknown) Plt Count 155 (units ( unknown) date) (150-400) X103/uL unknown) (unknown) (no (unknown) (unknown) Potassium (units (unkn own) date) (3.4-5.1) mmol/L unknown) (unknown) (no (unknown) (unknown) Potassium 3.6 (units ( unknown) date) (3.4-5.1) mmol/L unknown) (unknown) (no (unknown) (unknown) Prescriptions: (units (unknown) date) unknown) (unknown) (no (unknown) (unknown) Previous Rx's (units ( unknown) date) unknown) (unknown) (no (unknown) (unknown) Procalcitonin (units ( unknown) date) Stat unknown) (unknown) (no (unknown) (unknown) Pulse Oximetry 97 (units (unknown) date) 02/07/22 08:10 unknown) (unknown) (no (unknown) (unknown) Pulse Oximetry 97 (units (unknown) date) unknown) (unknown) (no (unknown) (unknown) Pulse Rate 121 H (units (unknown) date) 02/07/22 08:10 unknown) (unknown) (no (unknown) (unknown) Pulse Rate 121 H (units (unknown) date) unknown) (unknown) (no (unknown) (unknown) RBC (4.0-5.2) (units ( unknown) date) X106/uL unknown) (unknown) (no (unknown) (unknown) RBC 3.79 L (units (unk nown) date) (4.0-5.2) X106/uL unknown) (unknown) (no (unknown) (unknown) RDW (11.6-14.8) % (units (unknown) date) unknown) (unknown) (no (unknown) (unknown) RDW 14.1 (units (unkno wn) date) (11.6-14.8) % unknown) (unknown) (no (unknown) (unknown) RESPIRATORY: (units (u nknown) date) Breath sounds unknown) equal bilaterally, no wheezes rales or rhonchi. (unknown) (no (unknown) (unknown) ROS Unobtainable: (units (unknown) date) All systems unknown) reviewed + are unremarkable except as noted in HPI (unknown) (no (unknown) (unknown) Referrals: (units (unk nown) date) unknown) (unknown) (no (unknown) (unknown) Related Data (units (u nknown) date) unknown) (unknown) (no (unknown) (unknown) Respiratory Rate (units (unknown) date) 33 H 02/07/22 unknown) 08:10 (unknown) (no (unknown) (unknown) Respiratory Rate (units (unknown) date) 33 H unknown) (unknown) (no (unknown) (unknown) Result diagrams: (units (unknown) date) unknown) (unknown) (no (unknown) (unknown) Review of Systems (units (unknown) date) unknown) (unknown) (no (unknown) (unknown) SKIN: Severe (units (u nknown) date) scalp abrasions unknown) not growing hair mild drainage erythema facial (unknown) (no (unknown) (unknown) Signed By: (units (unk nown) date) unknown) (unknown) (no (unknown) (unknown) Smoking Status: (units (unknown) date) Never smoker unknown) (unknown) (no (unknown) (unknown) Social History (units (unknown) date) unknown) (unknown) (no (unknown) (unknown) Sodium (137-145) (units (unknown) date) mmol/L unknown) (unknown) (no (unknown) (unknown) Sodium 134 L (units (u nknown) date) (137-145) mmol/L unknown) (unknown) (no (unknown) (unknown) Sodium Chloride (units (unknown) date) (Normal Saline unknown) 0.9%) 1,000 mls @ 1,000 mls/hr IV BOLUS ONE (unknown) (no (unknown) (unknown) Source: patient (units (unknown) date) unknown) (unknown) (no (unknown) (unknown) Stated Complaint: (units (unknown) date) she has wounds on unknown) head, not eating, mucas in nose (unknown) (no (unknown) (unknown) Stop: 02/07/22 (units (unknown) date) 08:48 unknown) (unknown) (no (unknown) (unknown) Stop: 02/07/22 (units (unknown) date) 08:50 unknown) (unknown) (no (unknown) (unknown) Stop: 02/07/22 (units (unknown) date) 09:44 unknown) (unknown) (no (unknown) (unknown) Stop: 02/07/22 (units (unknown) date) 09:48 unknown) (unknown) (no (unknown) (unknown) Substance Use (units ( unknown) date) Type: does not use unknown) (unknown) (no (unknown) (unknown) Temperature 101.8 (units (unknown) date) F H 02/07/22 08:10 unknown) (unknown) (no (unknown) (unknown) Temperature 101.8 (units (unknown) date) F H unknown) (unknown) (no (unknown) (unknown) Time Seen by (units (u nknown) date) Provider: 02/07/22 unknown) 08:08 (unknown) (no (unknown) (unknown) Total Bilirubin (units (unknown) date) (0.2-1.3) mg/dL unknown) (unknown) (no (unknown) (unknown) Total Bilirubin (units (unknown) date) 0.5 (0.2-1.3) unknown) mg/dL (unknown) (no (unknown) (unknown) Total Creatine (units (unknown) date) Kinase (30-135) unknown) U/L (unknown) (no (unknown) (unknown) Total Creatine (units (unknown) date) Kinase 825 H unknown) (30-135) U/L (unknown) (no (unknown) (unknown) Total Protein (units ( unknown) date) (6.3-8.2) g/dL unknown) (unknown) (no (unknown) (unknown) Total Protein 7.9 (units (unknown) date) (6.3-8.2) g/dL unknown) (unknown) (no (unknown) (unknown) Troponin + CK (units ( unknown) date) Cardiac Panel Stat unknown) (unknown) (no (unknown) (unknown) Vancomycin HCl (units (unknown) date) (Vancomycin) 750 unknown) mg in 150 mls @ 150 mls/hr IV NOW ONE (unknown) (no (unknown) (unknown) Vital Signs - 8 (units (unknown) date) hr unknown) (unknown) (no (unknown) (unknown) Vital Signs (units (un known) date) unknown) (unknown) (no (unknown) (unknown) Vital signs: (units (u nknown) date) unknown) (unknown) (no (unknown) (unknown) WBC (4.5-11.0) (units (unknown) date) X103/uL unknown) (unknown) (no (unknown) (unknown) WBC 4.5 (units (unkno wn) date) (4.5-11.0) X103/uL unknown) (unknown) (no (unknown) (unknown) [Embedded Image (units (unknown) date) Not Available] unknown) (unknown) (no (unknown) (unknown) and below, (units (unk nown) date) Unobtainable due unknown) to medical condition and Unobtainable due to mental (unknown) (no (unknown) (unknown) and her face. (units ( unknown) date) They went to unknown) [facility] last week she said she got an IV, (unknown) (no (unknown) (unknown) apixaban 5 mg (units ( unknown) date) tablet (Eliquis) 5 unknown) mg PO BID 08/14/18 03/22/19 (unknown) (no (unknown) (unknown) behavior has (units (u nknown) date) changed some in unknown) regards to she is spitting more. They do not (unknown) (no (unknown) (unknown) blood work and (units (unknown) date) doxepin for the unknown) itching. It was recommended that patient be (unknown) (no (unknown) (unknown) condition (units (unkn own) date) unknown) (unknown) (no (unknown) (unknown) difficult to (units (u nknown) date) tell. They state unknown) that her communication has not changed. She (unknown) (no (unknown) (unknown) fluoxetine 10 mg (units (unknown) date) capsule 10 mg PO unknown) DAILY #90 caps 08/28/19 (unknown) (no (unknown) (unknown) fluoxetine 10 mg (units (unknown) date) capsule unknown) (unknown) (no (unknown) (unknown) guarding or (units (un known) date) rebound. unknown) (unknown) (no (unknown) (unknown) intact (units (unkno wn) date) unknown) (unknown) (no (unknown) (unknown) is not eating she (units (unknown) date) continues to drink unknown) some. She started spitting more. Her (unknown) (no (unknown) (unknown) mirtazapine (units (un known) date) AdvReac unknown) Intermediate Rash severe Verified 01/30/22 06:52 (unknown) (no (unknown) (unknown) olanzapine 15 mg (units (unknown) date) tablet 15 mg PO unknown) BEDTIME #90 tabs 09/23/20 (unknown) (no (unknown) (unknown) olanzapine 15 mg (units (unknown) date) tablet unknown) (unknown) (no (unknown) (unknown) placed for (units (unk nown) date) psychiatric unknown) hospitalization but after a long wait parents (unknown) (no (unknown) (unknown) poorly controled (units (unknown) date) schizophrenia she unknown) has frequent itching/picking she has (unknown) (no (unknown) (unknown) primary history (units (unknown) date) is taken from mom unknown) using language line. Patient has severe (unknown) (no (unknown) (unknown) reconsidered and (units (unknown) date) wanted to take her unknown) home. She developed a fever last night she (unknown) (no (unknown) (unknown) report worsening (units (unknown) date) hallucinations unknown) although patient really does not seem verbal (unknown) (no (unknown) (unknown) scratched her (units ( unknown) date) head so often the unknown) wounds on her head are actually getting worse (unknown) (no (unknown) (unknown) scratches (units (unkn own) date) unknown) (unknown) (no (unknown) (unknown) sniffing. She (units ( unknown) date) denies any pain. unknown) Mom reports cough. (unknown) (no (unknown) (unknown) the right cheek (units (unknown) date) unknown) Result panel 449 (unknown) (no date) (unknown) (unknown) 0-1/HPF (units (unkn own) unknown) (unknown) (no date) (unknown) (unknown) 1-5 /HPF (units (unkn own) unknown) (unknown) (no date) (unknown) (unknown) 1-5/HPF (units (unkn own) unknown) (unknown) (no date) (unknown) (unknown) Cult Not (units (unkn own) Indicated unknown) (unknown) (no date) (unknown) (unknown) None Seen (units (unk nown) unknown) (unknown) (no date) (unknown) (unknown) None Seen (units (unk nown) unknown) (unknown) (no date) (unknown) (unknown) None Seen (units (unk nown) unknown) Result panel 450 (unknown) (no date) (unknown) (unknown) Flu A (units (unkn own) NEGATIVE unknown) (unknown) (no date) (unknown) (unknown) Flu B (units (unkn own) NEGATIVE unknown) (unknown) (no date) (unknown) (unknown) Negative (units (unkn own) unknown) (unknown) (no date) (unknown) (unknown) Negative (units (unkn own) unknown) Result panel 451 (unknown) (no (unknown) (unknown) (no value) (units (unk nown) date) unknown) (unknown) (no (unknown) (unknown) 08:10 02/07/22 (units (unknown) date) unknown) (unknown) (no (unknown) (unknown) 08:11 02/07/22 (units (unknown) date) unknown) (unknown) (no (unknown) (unknown) 08:22 08:22 08:27 (units (unknown) date) unknown) (unknown) (no (unknown) (unknown) 08:27 08:27 08:42 (units (unknown) date) unknown) (unknown) (no (unknown) (unknown) 08:30 02/07/22 (units (unknown) date) unknown) (unknown) (no (unknown) (unknown) 08:30 (units (unkno wn) date) unknown) (unknown) (no (unknown) (unknown) 08:41 02/07/22 (units (unknown) date) unknown) (unknown) (no (unknown) (unknown) 08:41 (units (unkno wn) date) unknown) (unknown) (no (unknown) (unknown) 08:50 02/07/22 (units (unknown) date) unknown) (unknown) (no (unknown) (unknown) 09:00 02/07/22 (units (unknown) date) unknown) (unknown) (no (unknown) (unknown) 09:00 (units (unkno wn) date) unknown) (unknown) (no (unknown) (unknown) 09:20 02/07/22 (units (unknown) date) unknown) (unknown) (no (unknown) (unknown) 09:20 (units (unkno wn) date) unknown) (unknown) (no (unknown) (unknown) 09:30 02/07/22 (units (unknown) date) unknown) (unknown) (no (unknown) (unknown) 09:40 02/07/22 (units (unknown) date) unknown) (unknown) (no (unknown) (unknown) 09:40 (units (unkno wn) date) unknown) (unknown) (no (unknown) (unknown) 09:50 02/07/22 (units (unknown) date) unknown) (unknown) (no (unknown) (unknown) 10 mg PO DAILY (units (unknown) date) Qty: 90 1RF unknown) (unknown) (no (unknown) (unknown) 10:00 02/07/22 (units (unknown) date) unknown) (unknown) (no (unknown) (unknown) 10:00 (units (unkno wn) date) unknown) (unknown) (no (unknown) (unknown) 10:13 02/07/22 (units (unknown) date) unknown) (unknown) (no (unknown) (unknown) 10:13 (units (unkno wn) date) unknown) (unknown) (no (unknown) (unknown) 10:30 02/07/22 (units (unknown) date) unknown) (unknown) (no (unknown) (unknown) 10:30 (units (unkno wn) date) unknown) (unknown) (no (unknown) (unknown) 02/07/22 08:09 (units (unknown) date) unknown) (unknown) (no (unknown) (unknown) 02/07/22 08:22 (units (unknown) date) unknown) (unknown) (no (unknown) (unknown) 02/07/22 08:27 (units (unknown) date) unknown) (unknown) (no (unknown) (unknown) 02/07/22 08:42 (units (unknown) date) unknown) (unknown) (no (unknown) (unknown) 02/07/22 09:05 (units (unknown) date) unknown) (unknown) (no (unknown) (unknown) 02/07/22 09:20 (units (unknown) date) unknown) (unknown) (no (unknown) (unknown) 02/07/22 09:45 (units (unknown) date) unknown) (unknown) (no (unknown) (unknown) 02/07/22 02/07/22 (units (unknown) date) 02/07/22 unknown) Range/Units (unknown) (no (unknown) (unknown) 02/07/22 (units (unkno wn) date) Range/Units unknown) (unknown) (no (unknown) (unknown) 02/07/22 (units (unkno wn) date) unknown) (unknown) (no (unknown) (unknown) 15 mg PO BEDTIME (units (unknown) date) Qty: 90 1RF unknown) (unknown) (no (unknown) (unknown) 5 mg PO BID (units (un known) date) unknown) (unknown) (no (unknown) (unknown) ABDOMEN: Soft, (units (unknown) date) nontender. unknown) Normoactive bowel sounds all 4 quadrants. No (unknown) (no (unknown) (unknown) ALT (<35) IU/L (units (unknown) date) unknown) (unknown) (no (unknown) (unknown) ALT 33 (<35) IU/L (units (unknown) date) unknown) (unknown) (no (unknown) (unknown) AST (14-36) IU/L (units (unknown) date) unknown) (unknown) (no (unknown) (unknown) AST 87 H (14-36) (units (unknown) date) IU/L unknown) (unknown) (no (unknown) (unknown) Acetaminophen (units ( unknown) date) (Acetaminophen 325 unknown) Mg Tablet) 975 mg PO NOW ONE (unknown) (no (unknown) (unknown) Admin: 02/07/22 (units (unknown) date) 09:00 Dose: 1,000 unknown) mls/hr (unknown) (no (unknown) (unknown) Admin: 02/07/22 (units (unknown) date) 09:08 Dose: 200 unknown) mls/hr (unknown) (no (unknown) (unknown) Age/Sex: 31 / F (units (unknown) date) unknown) (unknown) (no (unknown) (unknown) Albumin (3.5-5.0) (units (unknown) date) g/dL unknown) (unknown) (no (unknown) (unknown) Albumin 3.6 (units (un known) date) (3.5-5.0) g/dL unknown) (unknown) (no (unknown) (unknown) Albumin/Globulin (units (unknown) date) Ratio (1.0-2.8) unknown) (unknown) (no (unknown) (unknown) Albumin/Globulin (units (unknown) date) Ratio 0.8 L unknown) (1.0-2.8) (unknown) (no (unknown) (unknown) Alkaline (units (unkno wn) date) Phosphatase unknown) (38-126) U/L (unknown) (no (unknown) (unknown) Alkaline (units (unkno wn) date) Phosphatase 46 unknown) (38-126) U/L (unknown) (no (unknown) (unknown) Allergies (units (unkn own) date) unknown) (unknown) (no (unknown) (unknown) Allergy/AdvReac (units (unknown) date) Type Severity unknown) Reaction Status Date / Time (unknown) (no (unknown) (unknown) BUN (7-17) mg/dL (units (unknown) date) unknown) (unknown) (no (unknown) (unknown) BUN 14 (7-17) (units ( unknown) date) mg/dL unknown) (unknown) (no (unknown) (unknown) BUN/Creatinine (units (unknown) date) Ratio (6-22) unknown) (unknown) (no (unknown) (unknown) BUN/Creatinine (units (unknown) date) Ratio 21.9 (6-22) unknown) (unknown) (no (unknown) (unknown) Baso # (Auto) (units ( unknown) date) (0-100) /uL unknown) (unknown) (no (unknown) (unknown) Baso # (Auto) 0 (units (unknown) date) (0-100) /uL unknown) (unknown) (no (unknown) (unknown) Baso % (Auto) (units ( unknown) date) (0-2) % unknown) (unknown) (no (unknown) (unknown) Baso % (Auto) 0.5 (units (unknown) date) (0-2) % unknown) (unknown) (no (unknown) (unknown) Bedside Urine (units ( unknown) date) Bilirubin - unknown) Negative (unknown) (no (unknown) (unknown) Bedside Urine (units ( unknown) date) Glucose Negative unknown) (unknown) (no (unknown) (unknown) Bedside Urine (units ( unknown) date) Ketone - Negative unknown) (unknown) (no (unknown) (unknown) Bedside Urine (units ( unknown) date) Leukocytes - unknown) Negative (unknown) (no (unknown) (unknown) Bedside Urine (units ( unknown) date) Nitrite - Negative unknown) (unknown) (no (unknown) (unknown) Bedside Urine (units ( unknown) date) Occult Blood - unknown) Negative (unknown) (no (unknown) (unknown) Bedside Urine (units ( unknown) date) Protein + 30 unknown) (unknown) (no (unknown) (unknown) Bedside Urine (units ( unknown) date) Urobilinogen - unknown) Negative (unknown) (no (unknown) (unknown) Bedside Urine pH (units (unknown) date) 6 unknown) (unknown) (no (unknown) (unknown) Blood Culture (units ( unknown) date) Stat unknown) (unknown) (no (unknown) (unknown) Blood Pressure (units (unknown) date) 100/57 L 02/07/22 unknown) 08:10 (unknown) (no (unknown) (unknown) Blood Pressure (units (unknown) date) 100/57 L 97/56 L unknown) (unknown) (no (unknown) (unknown) Blood Pressure (units (unknown) date) 100/58 L unknown) (unknown) (no (unknown) (unknown) Blood Pressure (units (unknown) date) 103/61 87/54 L unknown) (unknown) (no (unknown) (unknown) Blood Pressure (units (unknown) date) 103/61 unknown) (unknown) (no (unknown) (unknown) Blood Pressure (units (unknown) date) 105/68 unknown) (unknown) (no (unknown) (unknown) Blood Pressure (units (unknown) date) 92/55 L 95/60 unknown) (unknown) (no (unknown) (unknown) Blood Pressure (units (unknown) date) 96/57 L unknown) (unknown) (no (unknown) (unknown) Blood Pressure (units (unknown) date) 98/61 103/63 unknown) (unknown) (no (unknown) (unknown) CARDIOVASCULAR: (units (unknown) date) Regular rate and unknown) rhythm without murmurs, rubs or gallops. (unknown) (no (unknown) (unknown) CBC Auto Diff (units ( unknown) date) [Complete Blood unknown) Count AUTO DIFF] Stat (unknown) (no (unknown) (unknown) CK-MB (CK-2) (units (u nknown) date) (<2.37) ng/mL unknown) (unknown) (no (unknown) (unknown) CK-MB (CK-2) 2.02 (units (unknown) date) (<2.37) ng/mL unknown) (unknown) (no (unknown) (unknown) CK-MB (CK-2) Rel (units (unknown) date) Index (1.5-5.0) % unknown) (unknown) (no (unknown) (unknown) CK-MB (CK-2) Rel (units (unknown) date) Index 0.2 L unknown) (1.5-5.0) % (unknown) (no (unknown) (unknown) CMP (units (unkno wn) date) [Comprehensive unknown) Metabolic Panel] Stat (unknown) (no (unknown) (unknown) Calcium (units (unkno wn) date) (8.4-10.2) mg/dL unknown) (unknown) (no (unknown) (unknown) Calcium 8.3 L (units ( unknown) date) (8.4-10.2) mg/dL unknown) (unknown) (no (unknown) (unknown) Carbon Dioxide (units (unknown) date) (22-32) mmol/L unknown) (unknown) (no (unknown) (unknown) Carbon Dioxide 23 (units (unknown) date) (22-32) mmol/L unknown) (unknown) (no (unknown) (unknown) Ceftriaxone (units (un known) date) Sodium 2,000 mg/ unknown) (Sodium Chloride) 100 mls @ 200 mls/hr IV NOW ONE (unknown) (no (unknown) (unknown) Chest [XR chest (units (unknown) date) 1V] Stat unknown) (unknown) (no (unknown) (unknown) Chief Complaint: (units (unknown) date) Altered Mental unknown) Status (unknown) (no (unknown) (unknown) Chloride (98-107) (units (unknown) date) mmol/L unknown) (unknown) (no (unknown) (unknown) Chloride 99 (units (un known) date) (98-107) mmol/L unknown) (unknown) (no (unknown) (unknown) Consult to FACE PAINTER - (units (unknown) date) Community Engagement Manager unknown) Stat (unknown) (no (unknown) (unknown) Course (units (unkno wn) date) unknown) (unknown) (no (unknown) (unknown) Covid-19 + FLU (units (unknown) date) A/B + RSV - PCR unknown) Stat (unknown) (no (unknown) (unknown) Creatinine (units (unk nown) date) (0.52-1.04) mg/dL unknown) (unknown) (no (unknown) (unknown) Creatinine 0.64 (units (unknown) date) (0.52-1.04) mg/dL unknown) (unknown) (no (unknown) (unknown) : 1990 (units (unknown) date) Acct:[id number] unknown) (unknown) (no (unknown) (unknown) Date of Service: (units (unknown) date) 02/07/22 unknown) (unknown) (no (unknown) (unknown) Departure (units (unkn own) date) unknown) (unknown) (no (unknown) (unknown) Discharge Plan (units (unknown) date) unknown) (unknown) (no (unknown) (unknown) Discontinued (units (u nknown) date) Medications unknown) (unknown) (no (unknown) (unknown) Documented By: KM (units (unknown) date) unknown) (unknown) (no (unknown) (unknown) ED Orders (units (unkn own) date) unknown) (unknown) (no (unknown) (unknown) ER Physician: (units ( unknown) date) Amelia Unger unknown) D.O. (unknown) (no (unknown) (unknown) EXTREMITIES: (units (u nknown) date) Normal range of unknown) motion, no clubbing or edema. Neurovascularly (unknown) (no (unknown) (unknown) Eliquis 5 mg (units (u nknown) date) tablet unknown) (unknown) (no (unknown) (unknown) Emergency Report (units (unknown) date) unknown) (unknown) (no (unknown) (unknown) Eos # (Auto) (units (u nknown) date) (0-450) /uL unknown) (unknown) (no (unknown) (unknown) Eos # (Auto) 0 (units (unknown) date) (0-450) /uL unknown) (unknown) (no (unknown) (unknown) Eos % (Auto) (units (u nknown) date) (2-4) % unknown) (unknown) (no (unknown) (unknown) Eos % (Auto) 0.0 (units (unknown) date) L (2-4) % unknown) (unknown) (no (unknown) (unknown) Esterase (units (unkno wn) date) unknown) (unknown) (no (unknown) (unknown) Estimated GFR > (units (unknown) date) 60 (>60) mL/min unknown) (unknown) (no (unknown) (unknown) Estimated GFR (units ( unknown) date) (>60) mL/min unknown) (unknown) (no (unknown) (unknown) Exam (units (unkno wn) date) unknown) (unknown) (no (unknown) (unknown) GENERAL: Thin (units ( unknown) date) 31-year-old female unknown) (unknown) (no (unknown) (unknown) : Incontinent (units (unknown) date) of urine unknown) (unknown) (no (unknown) (unknown) General (units (unkno wn) date) unknown) (unknown) (no (unknown) (unknown) Globulin (units (unkno wn) date) (1.7-4.1) g/dL unknown) (unknown) (no (unknown) (unknown) Globulin 4.3 H (units (unknown) date) (1.7-4.1) g/dL unknown) (unknown) (no (unknown) (unknown) Glucose (70-100) (units (unknown) date) mg/dL unknown) (unknown) (no (unknown) (unknown) Glucose 113 H (units ( unknown) date) (70-100) mg/dL unknown) (unknown) (no (unknown) (unknown) HEENT: Head (units (un known) date) atraumatic,EOMI, unknown) pupils reactive, multiple face scratches mostly on (unknown) (no (unknown) (unknown) HPI - Fever (units (un known) date) unknown) (unknown) (no (unknown) (unknown) HPI Narrative: (units (unknown) date) unknown) (unknown) (no (unknown) (unknown) Hct (36-46) % (units ( unknown) date) unknown) (unknown) (no (unknown) (unknown) Hct 32.5 L (units (unk nown) date) (36-46) % unknown) (unknown) (no (unknown) (unknown) Hgb (12.0-16.0) (units (unknown) date) g/dL unknown) (unknown) (no (unknown) (unknown) Hgb 10.9 L (units (unk nown) date) (12.0-16.0) g/dL unknown) (unknown) (no (unknown) (unknown) History of (units (unk nown) date) Present Illness unknown) (unknown) (no (unknown) (unknown) Home Medications (units (unknown) date) unknown) (unknown) (no (unknown) (unknown) Influenza A (units (un known) date) (RT-PCR) unknown) (NEGATIVE) (unknown) (no (unknown) (unknown) Influenza A (units (un known) date) (RT-PCR) Flu a unknown) negative (NEGATIVE) (unknown) (no (unknown) (unknown) Influenza B (units (un known) date) (RT-PCR) unknown) (NEGATIVE) (unknown) (no (unknown) (unknown) Influenza B (units (un known) date) (RT-PCR) Flu b unknown) negative (NEGATIVE) (unknown) (no (unknown) (unknown) Initial Vital (units ( unknown) date) Signs unknown) (unknown) (no (unknown) (unknown) Initial Vital (units ( unknown) date) Signs: unknown) (unknown) (no (unknown) (unknown) [facility] (units (unknown) date) [address] unknown) [place] [address] (unknown) (no (unknown) (unknown) Ketorolac (units (unkn own) date) Tromethamine unknown) (Ketorolac 30 Mg/Ml Vial) 15 mg IV NOW ONE (unknown) (no (unknown) (unknown) Lab Data (units (unkno wn) date) unknown) (unknown) (no (unknown) (unknown) Lab Results (units (un known) date) unknown) (unknown) (no (unknown) (unknown) Labs: (units (unkno wn) date) unknown) (unknown) (no (unknown) (unknown) Lactate (0.7-2.1) (units (unknown) date) mmol/L unknown) (unknown) (no (unknown) (unknown) Lactate (Lactic (units (unknown) date) Acid) Stat unknown) (unknown) (no (unknown) (unknown) Lactate 1.6 (units (un known) date) (0.7-2.1) mmol/L unknown) (unknown) (no (unknown) (unknown) Last Admin: (units (un known) date) 02/07/22 09:07 unknown) Dose: 15 mg (unknown) (no (unknown) (unknown) Last Admin: (units (un known) date) 02/07/22 09:51 unknown) Dose: 150 mls/hr (unknown) (no (unknown) (unknown) Last Admin: (units (un known) date) 02/07/22 10:34 unknown) Dose: 382 mls/hr (unknown) (no (unknown) (unknown) Last Infusion: (units (unknown) date) 02/07/22 09:57 unknown) Dose: 0 mls/hr (unknown) (no (unknown) (unknown) Lymph # (Auto) (units (unknown) date) (6134-7237) /uL unknown) (unknown) (no (unknown) (unknown) Lymph # (Auto) (units (unknown) date) 900 L (0801-4387) unknown) /uL (unknown) (no (unknown) (unknown) Lymph % (Auto) (units (unknown) date) (25-40) % unknown) (unknown) (no (unknown) (unknown) Lymph % (Auto) (units (unknown) date) 20.7 L (25-40) % unknown) (unknown) (no (unknown) (unknown) [id number] (units (unk nown) date) unknown) (unknown) (no (unknown) (unknown) MCH (26-34) PG (units (unknown) date) unknown) (unknown) (no (unknown) (unknown) MCH 28.7 (26-34) (units (unknown) date) PG unknown) (unknown) (no (unknown) (unknown) MCHC (30-36) % (units (unknown) date) unknown) (unknown) (no (unknown) (unknown) MCHC 33.5 (30-36) (units (unknown) date) % unknown) (unknown) (no (unknown) (unknown) MCV (80-100) fL (units (unknown) date) unknown) (unknown) (no (unknown) (unknown) MCV 85.7 (80-100) (units (unknown) date) fL unknown) (unknown) (no (unknown) (unknown) MDM - Fever (units (un known) date) unknown) (unknown) (no (unknown) (unknown) Medication (units (unk nown) date) Instructions unknown) Recorded Confirmed (unknown) (no (unknown) (unknown) Medication (units (unk nown) date) Instructions unknown) Recorded (unknown) (no (unknown) (unknown) Miscellaneous,Doc (units (unknown) date) MD ori [Primary unknown) Care Provider] (unknown) (no (unknown) (unknown) Mode of arrival: (units (unknown) date) Wheelchair unknown) (unknown) (no (unknown) (unknown) Butts # (Auto) (units ( unknown) date) (0-900) /uL unknown) (unknown) (no (unknown) (unknown) Butts # (Auto) 500 (units (unknown) date) (0-900) /uL unknown) (unknown) (no (unknown) (unknown) Butts % (Auto) (units ( unknown) date) (3-14) % unknown) (unknown) (no (unknown) (unknown) Butts % (Auto) (units ( unknown) date) 10.1 (3-14) % unknown) (unknown) (no (unknown) (unknown) NEUROLOGICAL: (units ( unknown) date) Moving all unknown) extremities (unknown) (no (unknown) (unknown) Neut # (Auto) (units ( unknown) date) (5079-8008) /uL unknown) (unknown) (no (unknown) (unknown) Neut # (Auto) (units ( unknown) date) 3100 (2343-8749) unknown) /uL (unknown) (no (unknown) (unknown) Neut % (Auto) (units ( unknown) date) (50-75) % unknown) (unknown) (no (unknown) (unknown) Neut % (Auto) (units ( unknown) date) 68.7 (50-75) % unknown) (unknown) (no (unknown) (unknown) No Action (units (unkn own) date) unknown) (unknown) (no (unknown) (unknown) Olanzapine (units (unk nown) date) (Olanzapine Odt 10 unknown) Mg Tab) 20 mg PO NOW ONE (unknown) (no (unknown) (unknown) Ordered: (units (unkno wn) date) unknown) (unknown) (no (unknown) (unknown) Orders (units (unkno wn) date) unknown) (unknown) (no (unknown) (unknown) Oxygen Delivery (units (unknown) date) Method 02/07/22 unknown) 08:10 (unknown) (no (unknown) (unknown) Oxygen Delivery (units (unknown) date) Method Room Air unknown) (unknown) (no (unknown) (unknown) Oxygen Delivery (units (unknown) date) Method unknown) (unknown) (no (unknown) (unknown) Patient History (units (unknown) date) unknown) (unknown) (no (unknown) (unknown) Patient is a (units (u nknown) date) 31-year-old female unknown) history of schizophrenia language barrier (unknown) (no (unknown) (unknown) Patient: (units (unkno wn) date) [place] unknown) B MR#: (unknown) (no (unknown) (unknown) Plt Count (units (unkn own) date) (150-400) X103/uL unknown) (unknown) (no (unknown) (unknown) Plt Count 155 (units ( unknown) date) (150-400) X103/uL unknown) (unknown) (no (unknown) (unknown) Point of Care (units ( unknown) date) Testing unknown) (unknown) (no (unknown) (unknown) Potassium (units (unkn own) date) (3.4-5.1) mmol/L unknown) (unknown) (no (unknown) (unknown) Potassium 3.6 (units ( unknown) date) (3.4-5.1) mmol/L unknown) (unknown) (no (unknown) (unknown) Test (units (unknown) date) Results Negative unknown) (unknown) (no (unknown) (unknown) Prescriptions: (units (unknown) date) unknown) (unknown) (no (unknown) (unknown) Previous Rx's (units ( unknown) date) unknown) (unknown) (no (unknown) (unknown) Procalcitonin (units ( unknown) date) (<0.5) ng/mL unknown) (unknown) (no (unknown) (unknown) Procalcitonin (units ( unknown) date) 1.08 H (<0.5) unknown) ng/mL (unknown) (no (unknown) (unknown) Procalcitonin (units ( unknown) date) Stat unknown) (unknown) (no (unknown) (unknown) Pulse Oximetry 96 (units (unknown) date) 95 unknown) (unknown) (no (unknown) (unknown) Pulse Oximetry 97 (units (unknown) date) 02/07/22 08:10 unknown) (unknown) (no (unknown) (unknown) Pulse Oximetry 97 (units (unknown) date) 97 unknown) (unknown) (no (unknown) (unknown) Pulse Oximetry 97 (units (unknown) date) unknown) (unknown) (no (unknown) (unknown) Pulse Oximetry 98 (units (unknown) date) 97 unknown) (unknown) (no (unknown) (unknown) Pulse Oximetry 98 (units (unknown) date) unknown) (unknown) (no (unknown) (unknown) Pulse Rate 109 H (units (unknown) date) unknown) (unknown) (no (unknown) (unknown) Pulse Rate 110 H (units (unknown) date) 110 H unknown) (unknown) (no (unknown) (unknown) Pulse Rate 111 H (units (unknown) date) 104 H unknown) (unknown) (no (unknown) (unknown) Pulse Rate 112 H (units (unknown) date) unknown) (unknown) (no (unknown) (unknown) Pulse Rate 117 H (units (unknown) date) unknown) (unknown) (no (unknown) (unknown) Pulse Rate 121 H (units (unknown) date) 117 H unknown) (unknown) (no (unknown) (unknown) Pulse Rate 121 H (units (unknown) date) 02/07/22 08:10 unknown) (unknown) (no (unknown) (unknown) Pulse Rate 123 H (units (unknown) date) unknown) (unknown) (no (unknown) (unknown) Pulse Rate 96 H (units (unknown) date) 102 H unknown) (unknown) (no (unknown) (unknown) RBC (4.0-5.2) (units ( unknown) date) X106/uL unknown) (unknown) (no (unknown) (unknown) RBC 3.79 L (units (unk nown) date) (4.0-5.2) X106/uL unknown) (unknown) (no (unknown) (unknown) RDW (11.6-14.8) % (units (unknown) date) unknown) (unknown) (no (unknown) (unknown) RDW 14.1 (units (unkno wn) date) (11.6-14.8) % unknown) (unknown) (no (unknown) (unknown) RESPIRATORY: (units (u nknown) date) Breath sounds unknown) equal bilaterally, no wheezes rales or rhonchi. (unknown) (no (unknown) (unknown) ROS Unobtainable: (units (unknown) date) All systems unknown) reviewed + are unremarkable except as noted in HPI (unknown) (no (unknown) (unknown) RSV (PCR) (units (unkn own) date) (Negative) unknown) (unknown) (no (unknown) (unknown) RSV (PCR) (units (unkn own) date) Negative unknown) (Negative) (unknown) (no (unknown) (unknown) Referrals: (units (unk nown) date) unknown) (unknown) (no (unknown) (unknown) Related Data (units (u nknown) date) unknown) (unknown) (no (unknown) (unknown) Respiratory Rate (units (unknown) date) 31 H unknown) (unknown) (no (unknown) (unknown) Respiratory Rate (units (unknown) date) 33 H 02/07/22 unknown) 08:10 (unknown) (no (unknown) (unknown) Respiratory Rate (units (unknown) date) 33 H 36 H unknown) (unknown) (no (unknown) (unknown) Respiratory Rate (units (unknown) date) 33 H unknown) (unknown) (no (unknown) (unknown) Respiratory Rate (units (unknown) date) 37 H 37 H unknown) (unknown) (no (unknown) (unknown) Respiratory Rate (units (unknown) date) 46 H 35 H unknown) (unknown) (no (unknown) (unknown) Respiratory Rate (units (unknown) date) unknown) (unknown) (no (unknown) (unknown) Result diagrams: (units (unknown) date) unknown) (unknown) (no (unknown) (unknown) Review of Systems (units (unknown) date) unknown) (unknown) (no (unknown) (unknown) SARS-CoV-2 (PCR) (units (unknown) date) (Negative) unknown) (unknown) (no (unknown) (unknown) SARS-CoV-2 (PCR) (units (unknown) date) Negative unknown) (Negative) (unknown) (no (unknown) (unknown) SKIN: Severe (units (u nknown) date) scalp abrasions unknown) not growing hair mild drainage erythema facial (unknown) (no (unknown) (unknown) Signed By: (units (unk nown) date) unknown) (unknown) (no (unknown) (unknown) Smoking Status: (units (unknown) date) Never smoker unknown) (unknown) (no (unknown) (unknown) Social History (units (unknown) date) unknown) (unknown) (no (unknown) (unknown) Sodium (137-145) (units (unknown) date) mmol/L unknown) (unknown) (no (unknown) (unknown) Sodium 134 L (units (u nknown) date) (137-145) mmol/L unknown) (unknown) (no (unknown) (unknown) Sodium Chloride (units (unknown) date) (Normal Saline unknown) 0.9%) 1,000 mls @ 1,000 mls/hr IV BOLUS ONE (unknown) (no (unknown) (unknown) Sodium Chloride (units (unknown) date) (Normal Saline unknown) 0.9%) 1,146 mls @ 382 mls/hr 30 ml/kg infuse (unknown) (no (unknown) (unknown) Source: patient (units (unknown) date) unknown) (unknown) (no (unknown) (unknown) Stated Complaint: (units (unknown) date) she has wounds on unknown) head, not eating, mucas in nose (unknown) (no (unknown) (unknown) Stop: 02/07/22 (units (unknown) date) 08:48 unknown) (unknown) (no (unknown) (unknown) Stop: 02/07/22 (units (unknown) date) 08:50 unknown) (unknown) (no (unknown) (unknown) Stop: 02/07/22 (units (unknown) date) 09:44 unknown) (unknown) (no (unknown) (unknown) Stop: 02/07/22 (units (unknown) date) 09:48 unknown) (unknown) (no (unknown) (unknown) Stop: 02/07/22 (units (unknown) date) 11:06 unknown) (unknown) (no (unknown) (unknown) Stop: 02/07/22 (units (unknown) date) 11:07 unknown) (unknown) (no (unknown) (unknown) Stop: 02/07/22 (units (unknown) date) 13:07 unknown) (unknown) (no (unknown) (unknown) Substance Use (units ( unknown) date) Type: does not use unknown) (unknown) (no (unknown) (unknown) Temperature 100.8 (units (unknown) date) F H unknown) (unknown) (no (unknown) (unknown) Temperature 101.7 (units (unknown) date) F H 101.3 F H unknown) (unknown) (no (unknown) (unknown) Temperature 101.8 (units (unknown) date) F H 02/07/22 08:10 unknown) (unknown) (no (unknown) (unknown) Temperature 101.8 (units (unknown) date) F H unknown) (unknown) (no (unknown) (unknown) Temperature (units (un known) date) unknown) (unknown) (no (unknown) (unknown) Time Seen by (units (u nknown) date) Provider: 02/07/22 unknown) 08:08 (unknown) (no (unknown) (unknown) Total Bilirubin (units (unknown) date) (0.2-1.3) mg/dL unknown) (unknown) (no (unknown) (unknown) Total Bilirubin (units (unknown) date) 0.5 (0.2-1.3) unknown) mg/dL (unknown) (no (unknown) (unknown) Total Creatine (units (unknown) date) Kinase (30-135) unknown) U/L (unknown) (no (unknown) (unknown) Total Creatine (units (unknown) date) Kinase 825 H unknown) (30-135) U/L (unknown) (no (unknown) (unknown) Total Protein (units ( unknown) date) (6.3-8.2) g/dL unknown) (unknown) (no (unknown) (unknown) Total Protein 7.9 (units (unknown) date) (6.3-8.2) g/dL unknown) (unknown) (no (unknown) (unknown) Troponin + CK (units ( unknown) date) Cardiac Panel Stat unknown) (unknown) (no (unknown) (unknown) Troponin I < (units (u nknown) date) 0.012 (0.01-0.034) unknown) ng/mL (unknown) (no (unknown) (unknown) Troponin I (units (unk nown) date) (0.01-0.034) ng/mL unknown) (unknown) (no (unknown) (unknown) Ur Culture (units (unk nown) date) Indicated? Cult unknown) not indicated (unknown) (no (unknown) (unknown) Ur Culture (units (unk nown) date) Indicated? unknown) (unknown) (no (unknown) (unknown) Ur Squamous Epith (units (unknown) date) Cells (0-5/HPF) unknown) (unknown) (no (unknown) (unknown) Ur Squamous Epith (units (unknown) date) Cells 1-5 /hpf unknown) (0-5/HPF) (unknown) (no (unknown) (unknown) Ur Transition (units ( unknown) date) Epith Cell unknown) (0-5/HPF) (unknown) (no (unknown) (unknown) Ur Transition (units ( unknown) date) Epith Cell 0-1/hpf unknown) (0-5/HPF) (unknown) (no (unknown) (unknown) Urine Bacteria (units (unknown) date) (None) unknown) (unknown) (no (unknown) (unknown) Urine Bacteria (units (unknown) date) None seen (None) unknown) (unknown) (no (unknown) (unknown) Urine Dip (units (unkn own) date) unknown) (unknown) (no (unknown) (unknown) Urine Microscopic (units (unknown) date) Stat unknown) (unknown) (no (unknown) (unknown) Urine RBC (units (unkn own) date) (0-5/HPF) unknown) (unknown) (no (unknown) (unknown) Urine RBC None (units (unknown) date) seen (0-5/HPF) unknown) (unknown) (no (unknown) (unknown) Urine Specific (units (unknown) date) [place] 1.015 unknown) (unknown) (no (unknown) (unknown) Urine WBC (units (unkn own) date) (0-5/HPF) unknown) (unknown) (no (unknown) (unknown) Urine WBC 1-5/hpf (units (unknown) date) (0-5/HPF) unknown) (unknown) (no (unknown) (unknown) Vancomycin HCl (units (unknown) date) (Vancomycin) 750 unknown) mg in 150 mls @ 150 mls/hr IV NOW ONE (unknown) (no (unknown) (unknown) Vital Signs - 8 (units (unknown) date) hr unknown) (unknown) (no (unknown) (unknown) Vital Signs (units (un known) date) unknown) (unknown) (no (unknown) (unknown) Vital signs: (units (u nknown) date) unknown) (unknown) (no (unknown) (unknown) WBC (4.5-11.0) (units (unknown) date) X103/uL unknown) (unknown) (no (unknown) (unknown) WBC 4.5 (units (unkno wn) date) (4.5-11.0) X103/uL unknown) (unknown) (no (unknown) (unknown) [Embedded Image (units (unknown) date) Not Available] unknown) (unknown) (no (unknown) (unknown) and below, (units (unk nown) date) Unobtainable due unknown) to medical condition and Unobtainable due to mental (unknown) (no (unknown) (unknown) and her face. (units ( unknown) date) They went to unknown) [facility] last week she said she got an IV, (unknown) (no (unknown) (unknown) apixaban 5 mg (units ( unknown) date) tablet (Eliquis) 5 unknown) mg PO BID 08/14/18 03/22/19 (unknown) (no (unknown) (unknown) behavior has (units (u nknown) date) changed some in unknown) regards to she is spitting more. They do not (unknown) (no (unknown) (unknown) blood work and (units (unknown) date) doxepin for the unknown) itching. It was recommended that patient be (unknown) (no (unknown) (unknown) condition (units (unkn own) date) unknown) (unknown) (no (unknown) (unknown) difficult to (units (u nknown) date) tell. They state unknown) that her communication has not changed. She (unknown) (no (unknown) (unknown) fluoxetine 10 mg (units (unknown) date) capsule 10 mg PO unknown) DAILY #90 caps 08/28/19 (unknown) (no (unknown) (unknown) fluoxetine 10 mg (units (unknown) date) capsule unknown) (unknown) (no (unknown) (unknown) guarding or (units (un known) date) rebound. unknown) (unknown) (no (unknown) (unknown) intact (units (unkno wn) date) unknown) (unknown) (no (unknown) (unknown) is not eating she (units (unknown) date) continues to drink unknown) some. She started spitting more. Her (unknown) (no (unknown) (unknown) mirtazapine (units (un known) date) AdvReac unknown) Intermediate Rash severe Verified 01/30/22 06:52 (unknown) (no (unknown) (unknown) olanzapine 15 mg (units (unknown) date) tablet 15 mg PO unknown) BEDTIME #90 tabs 09/23/20 (unknown) (no (unknown) (unknown) olanzapine 15 mg (units (unknown) date) tablet unknown) (unknown) (no (unknown) (unknown) over 3 hr (1146 (units (unknown) date) ml) IV NOW ONE unknown) (unknown) (no (unknown) (unknown) placed for (units (unk nown) date) psychiatric unknown) hospitalization but after a long wait parents (unknown) (no (unknown) (unknown) poorly controled (units (unknown) date) schizophrenia she unknown) has frequent itching/picking she has (unknown) (no (unknown) (unknown) primary history (units (unknown) date) is taken from mom unknown) using language line. Patient has severe (unknown) (no (unknown) (unknown) reconsidered and (units (unknown) date) wanted to take her unknown) home. She developed a fever last night she (unknown) (no (unknown) (unknown) report worsening (units (unknown) date) hallucinations unknown) although patient really does not seem verbal (unknown) (no (unknown) (unknown) scratched her (units ( unknown) date) head so often the unknown) wounds on her head are actually getting worse (unknown) (no (unknown) (unknown) scratches (units (unkn own) date) unknown) (unknown) (no (unknown) (unknown) sniffing. She (units ( unknown) date) denies any pain. unknown) Mom reports cough. (unknown) (no (unknown) (unknown) the right cheek (units (unknown) date) unknown) Result panel 452 (unknown) (no date) (unknown) (unknown) 2.1 mg/dl (unkn own) (unknown) (no date) (unknown) (unknown) 2.1 mg/dl (unkn own) Result panel 453 (unknown) (no date) (unknown) (unknown) Not Detected (units ( unknown) unknown) (unknown) (no date) (unknown) (unknown) Not Detected (units ( unknown) unknown) Result panel 454 (unknown) (no date) (unknown) (unknown) Negative (units (unkn own) unknown) (unknown) (no date) (unknown) (unknown) Negative (units (unkn own) unknown) Result panel 455 (unknown) (no date) (unknown) (unknown) (no value) (units (un known) unknown) (unknown) (no date) (unknown) (unknown) 02/07/22 (units (unkn own) unknown) (unknown) (no date) (unknown) (unknown) [address]units (unk nown) [address] unknown) (unknown) (no date) (unknown) (unknown) : [id number] (units ( unknown) unknown) (unknown) (no date) (unknown) (unknown) Accession (units (unk nown) Number: unknown) [id number] (unknown) (no date) (unknown) (unknown) Age/Sex: 31 / (units (unknown) F Date of unknown) Service: (unknown) (no date) (unknown) (unknown) [place] (units (unknown) [id number] unknown) (unknown) (no date) (unknown) (unknown) Approved by: (units ( unknown) Fernando Delarosa M.D. unknown) on 02/07/2022 at 14:48 (unknown) (no date) (unknown) (unknown) Bones and (units (unk nown) chest wall: No unknown) suspicious bony lesions. Overlying soft tissues (unknown) (no date) (unknown) (unknown) COMPARISON: (units (u nknown) [facility], CR, XR CHEST 1V, 02/07/2022, 8:50. (unknown) (no date) (unknown) (unknown) : (units (unkn own) 1990 unknown) Acct:[id number] (unknown) (no date) (unknown) (unknown) Dictated by: (units ( unknown) Fernando Delarosa M.D. unknown) on 02/07/2022 at 14:47 (unknown) (no date) (unknown) (unknown) FINDINGS: (units (unk nown) unknown) (unknown) (no date) (unknown) (unknown) IMPRESSION: (units (u nknown) Right internal unknown) jugular central venous catheter tip is in SVC. (unknown) (no date) (unknown) (unknown) INDICATIONS: (units ( unknown) central line unknown) placement (unknown) (no date) (unknown) (unknown) [place] (units (unkn own) [facility] unknown) (unknown) (no date) (unknown) (unknown) Loc: [facility] (units (unknown) unknown) (unknown) (no date) (unknown) (unknown) Lungs and (units (unk nown) pleura: There unknown) is mild pulmonary edema and pulmonary vascular (unknown) (no date) (unknown) (unknown) Mediastinum: (units ( unknown) Mediastinal unknown) contours appear normal. Heart size is normal. (unknown) (no date) (unknown) (unknown) Mild (units (unkn own) unknown) (unknown) (no date) (unknown) (unknown) Ordering (units (unkn own) Provider: unknown) Yaakov Costa D.O. (unknown) (no date) (unknown) (unknown) PROCEDURE: XR (units (unknown) CHEST 1V unknown) (unknown) (no date) (unknown) (unknown) Patient: (units (unkn own) Kyara Mills unknown) ne B MR# (unknown) (no date) (unknown) (unknown) Procedure: XR (units (unknown) chest 1V unknown) (unknown) (no date) (unknown) (unknown) SVC. (units (unkn own) unknown) (unknown) (no date) (unknown) (unknown) Signed (units (unkn own) unknown) (unknown) (no date) (unknown) (unknown) Surgical (units (unkn own) changes and unknown) devices: Right internal jugular central venous catheter (unknown) (no date) (unknown) (unknown) TECHNIQUE: One (units (unknown) view of the unknown) chest was acquired. (unknown) (no date) (unknown) (unknown) XRay Report (units (u nknown) unknown) (unknown) (no date) (unknown) (unknown) appear (units (unkn own) unknown) (unknown) (no date) (unknown) (unknown) congestion and (units (unknown) pulmonary unknown) edema. No definite focal infiltrate. No (unknown) (no date) (unknown) (unknown) congestion. No (units (unknown) unknown) (unknown) (no date) (unknown) (unknown) definite focal (units (unknown) infiltrate. No unknown) pleural effusions or pneumothorax. (unknown) (no date) (unknown) (unknown) pneumothorax. (units (unknown) unknown) (unknown) (no date) (unknown) (unknown) tip is in (units (unk nown) unknown) (unknown) (no date) (unknown) (unknown) unremarkable. (units (unknown) unknown) Result panel 456 (unknown) (no (unknown) (unknown) (no value) (units (unk nown) date) unknown) (unknown) (no (unknown) (unknown) 02/07/22 1500 (units ( unknown) date) unknown) (unknown) (no (unknown) (unknown) Additional (units (unk nown) date) comments: unknown) (unknown) (no (unknown) (unknown) Age/Sex: 31 / F (units (unknown) date) unknown) (unknown) (no (unknown) (unknown) Amount of (units (unkn own) date) anesthesia used unknown) (ml): 3 (unknown) (no (unknown) (unknown) Central Line (units (u nknown) date) Placement unknown) (unknown) (no (unknown) (unknown) Central line (units (u nknown) date) lumen inserted: unknown) triple (unknown) (no (unknown) (unknown) Central line (units (u nknown) date) prep: unknown) Chlorhexidine scrub and sterile drapes applied (unknown) (no (unknown) (unknown) Complications: (units (unknown) date) none unknown) (unknown) (no (unknown) (unknown) : 1990 (units (unknown) date) Acct:[id number] unknown) (unknown) (no (unknown) (unknown) Date of Service: (units (unknown) date) 02/07/22 unknown) (unknown) (no (unknown) (unknown) Date of (units (unkno wn) date) procedure: unknown) 02/07/22 (unknown) (no (unknown) (unknown) Date/Time (units (unkn own) date) unknown) (unknown) (no (unknown) (unknown) [facility] (units (unknown) date) [address] [place] [address] unknown) [place] [address] (unknown) (no (unknown) (unknown) Local anesthesia (units (unknown) date) used: lidocaine unknown) 1% (unknown) (no (unknown) (unknown) [id number] (units (unk nown) date) unknown) (unknown) (no (unknown) (unknown) MD prep: mask, (units (unknown) date) gown and gloves unknown) (unknown) (no (unknown) (unknown) Patient placed (units (unknown) date) on monitor/pulse unknown) ox: Yes (unknown) (no (unknown) (unknown) Patient (units (unkno wn) date) tolerated unknown) procedure: well and no complications (unknown) (no (unknown) (unknown) Patient was (units (un known) date) given procedural unknown) sedation of 50mcg fentanyl and a 75mcg/kg/min (unknown) (no (unknown) (unknown) Patient: (units (unkno wn) date) GeneVanessa unknown) B MR#: (unknown) (no (unknown) (unknown) Post procedure (units (unknown) date) x-ray: tip of unknown) catheter in good position and no pneumothorax seen (unknown) (no (unknown) (unknown) Post procedure: (units (unknown) date) sutured in place, unknown) good blood return, all ports aspirated, (unknown) (no (unknown) (unknown) Procedure Note (units (unknown) date) unknown) (unknown) (no (unknown) (unknown) Procedures (units (unk nown) date) unknown) (unknown) (no (unknown) (unknown) Provider: (units (unkn own) date) Mikel Yeboah MD unknown) (unknown) (no (unknown) (unknown) Signed (units (unkno wn) date) By:<Electronicall unknown) y signed by Mikel Yeboah MD> (unknown) (no (unknown) (unknown) Time of (units (unkno wn) date) procedure: 13:55 unknown) (unknown) (no (unknown) (unknown) Time out (units (unkno wn) date) performed: Yes unknown) (unknown) (no (unknown) (unknown) Ultrasound used (units (unknown) date) for placement: unknown) Yes (unknown) (no (unknown) (unknown) flushed, capped (units (unknown) date) and sterile unknown) dressing applied (unknown) (no (unknown) (unknown) monitor. (units (unkno wn) date) unknown) (unknown) (no (unknown) (unknown) propofol (units (unkno wn) date) infusion. ASA unknown) monitoring applied including EtCO2/O2 nasalcannula Result panel 457 (unknown) (no (unknown) (unknown) (no value) (units (unk nown) date) unknown) (unknown) (no (unknown) (unknown) (past 8 hours): (units (unknown) date) unknown) (unknown) (no (unknown) (unknown) 08:10 02/07/22 (units (unknown) date) unknown) (unknown) (no (unknown) (unknown) 08:11 02/07/22 (units (unknown) date) unknown) (unknown) (no (unknown) (unknown) 08:22 08:22 (units (un known) date) 08:22 unknown) (unknown) (no (unknown) (unknown) 08:27 08:27 (units (un known) date) 08:27 unknown) (unknown) (no (unknown) (unknown) 08:30 02/07/22 (units (unknown) date) unknown) (unknown) (no (unknown) (unknown) 08:30 (units (unkno wn) date) unknown) (unknown) (no (unknown) (unknown) 08:41 02/07/22 (units (unknown) date) unknown) (unknown) (no (unknown) (unknown) 08:41 (units (unkno wn) date) unknown) (unknown) (no (unknown) (unknown) 08:42 09:20 (units (un known) date) 09:20 unknown) (unknown) (no (unknown) (unknown) 08:50 02/07/22 (units (unknown) date) unknown) (unknown) (no (unknown) (unknown) 09:00 02/07/22 (units (unknown) date) unknown) (unknown) (no (unknown) (unknown) 09:00 (units (unkno wn) date) unknown) (unknown) (no (unknown) (unknown) 09:20 02/07/22 (units (unknown) date) unknown) (unknown) (no (unknown) (unknown) 09:20 (units (unkno wn) date) unknown) (unknown) (no (unknown) (unknown) 09:30 02/07/22 (units (unknown) date) unknown) (unknown) (no (unknown) (unknown) 09:40 02/07/22 (units (unknown) date) unknown) (unknown) (no (unknown) (unknown) 09:40 (units (unkno wn) date) unknown) (unknown) (no (unknown) (unknown) 09:50 02/07/22 (units (unknown) date) unknown) (unknown) (no (unknown) (unknown) 101.8?. (units (unkno wn) date) Initially unknown) normotensive, got fluid bolus 30 milliliters/kilog sandip for (unknown) (no (unknown) (unknown) 10:00 02/07/22 (units (unknown) date) unknown) (unknown) (no (unknown) (unknown) 10:00 (units (unkno wn) date) unknown) (unknown) (no (unknown) (unknown) 10:13 02/07/22 (units (unknown) date) unknown) (unknown) (no (unknown) (unknown) 10:13 (units (unkno wn) date) unknown) (unknown) (no (unknown) (unknown) 10:30 02/07/22 (units (unknown) date) unknown) (unknown) (no (unknown) (unknown) 11:00 02/07/22 (units (unknown) date) unknown) (unknown) (no (unknown) (unknown) 11:00 (units (unkno wn) date) unknown) (unknown) (no (unknown) (unknown) 11:30 02/07/22 (units (unknown) date) unknown) (unknown) (no (unknown) (unknown) 11:30 (units (unkno wn) date) unknown) (unknown) (no (unknown) (unknown) 02/07/22 08:27 (units (unknown) date) unknown) (unknown) (no (unknown) (unknown) 02/07/22 (units (unkno wn) date) 02/07/22 02/07/22 unknown) (unknown) (no (unknown) (unknown) 02/07/22 (units (unkno wn) date) unknown) (unknown) (no (unknown) (unknown) 12:00 02/07/22 (units (unknown) date) unknown) (unknown) (no (unknown) (unknown) 12:00 (units (unkno wn) date) unknown) (unknown) (no (unknown) (unknown) 12:30 02/07/22 (units (unknown) date) unknown) (unknown) (no (unknown) (unknown) 12:30 (units (unkno wn) date) unknown) (unknown) (no (unknown) (unknown) 12:33 02/07/22 (units (unknown) date) unknown) (unknown) (no (unknown) (unknown) 12:33 (units (unkno wn) date) unknown) (unknown) (no (unknown) (unknown) 12:37 02/07/22 (units (unknown) date) unknown) (unknown) (no (unknown) (unknown) 12:40 02/07/22 (units (unknown) date) unknown) (unknown) (no (unknown) (unknown) 12:40 (units (unkno wn) date) unknown) (unknown) (no (unknown) (unknown) 12:52 12/12/22 (units (unknown) date) unknown) (unknown) (no (unknown) (unknown) 12:52 (units (unkno wn) date) unknown) (unknown) (no (unknown) (unknown) 13:00 02/07/22 (units (unknown) date) unknown) (unknown) (no (unknown) (unknown) 13:01 02/07/22 (units (unknown) date) unknown) (unknown) (no (unknown) (unknown) 13:01 (units (unkno wn) date) unknown) (unknown) (no (unknown) (unknown) 13:05 02/07/22 (units (unknown) date) unknown) (unknown) (no (unknown) (unknown) 13:05 (units (unkno wn) date) unknown) (unknown) (no (unknown) (unknown) 13:10 02/07/22 (units (unknown) date) unknown) (unknown) (no (unknown) (unknown) 13:15 02/07/22 (units (unknown) date) unknown) (unknown) (no (unknown) (unknown) 13:15 (units (unkno wn) date) unknown) (unknown) (no (unknown) (unknown) 13:20 02/07/22 (units (unknown) date) unknown) (unknown) (no (unknown) (unknown) 13:20 (units (unkno wn) date) unknown) (unknown) (no (unknown) (unknown) 13:25 02/07/22 (units (unknown) date) unknown) (unknown) (no (unknown) (unknown) 13:30 02/07/22 (units (unknown) date) unknown) (unknown) (no (unknown) (unknown) 13:30 (units (unkno wn) date) unknown) (unknown) (no (unknown) (unknown) 13:35 02/07/22 (units (unknown) date) unknown) (unknown) (no (unknown) (unknown) 13:35 (units (unkno wn) date) unknown) (unknown) (no (unknown) (unknown) 13:40 02/07/22 (units (unknown) date) unknown) (unknown) (no (unknown) (unknown) 13:45 02/07/22 (units (unknown) date) unknown) (unknown) (no (unknown) (unknown) 13:45 (units (unkno wn) date) unknown) (unknown) (no (unknown) (unknown) 13:50 02/07/22 (units (unknown) date) unknown) (unknown) (no (unknown) (unknown) 13:50 (units (unkno wn) date) unknown) (unknown) (no (unknown) (unknown) 13:55 02/07/22 (units (unknown) date) unknown) (unknown) (no (unknown) (unknown) 14:00 02/07/22 (units (unknown) date) unknown) (unknown) (no (unknown) (unknown) 14:00 (units (unkno wn) date) unknown) (unknown) (no (unknown) (unknown) 14:05 02/07/22 (units (unknown) date) unknown) (unknown) (no (unknown) (unknown) 14:05 (units (unkno wn) date) unknown) (unknown) (no (unknown) (unknown) 14:10 02/07/22 (units (unknown) date) unknown) (unknown) (no (unknown) (unknown) 14:15 02/07/22 (units (unknown) date) unknown) (unknown) (no (unknown) (unknown) 14:15 (units (unkno wn) date) unknown) (unknown) (no (unknown) (unknown) 14:20 02/07/22 (units (unknown) date) unknown) (unknown) (no (unknown) (unknown) 14:20 (units (unkno wn) date) unknown) (unknown) (no (unknown) (unknown) 14:25 02/07/22 (units (unknown) date) unknown) (unknown) (no (unknown) (unknown) 14:30 02/07/22 (units (unknown) date) unknown) (unknown) (no (unknown) (unknown) 14:30 (units (unkno wn) date) unknown) (unknown) (no (unknown) (unknown) 14:35 02/07/22 (units (unknown) date) unknown) (unknown) (no (unknown) (unknown) 14:35 (units (unkno wn) date) unknown) (unknown) (no (unknown) (unknown) 14:40 02/07/22 (units (unknown) date) unknown) (unknown) (no (unknown) (unknown) 14:45 (units (unkno wn) date) unknown) (unknown) (no (unknown) (unknown) 31-year-old (units (un known) date) female with unknown) history of poorly controlled schizophrenia presented to (unknown) (no (unknown) (unknown) ALT 33 (units (unkno wn) date) unknown) (unknown) (no (unknown) (unknown) ALT (units (unkno wn) date) unknown) (unknown) (no (unknown) (unknown) AST 87 H (units (unkno wn) date) unknown) (unknown) (no (unknown) (unknown) AST (units (unkno wn) date) unknown) (unknown) (no (unknown) (unknown) Adenovirus (PCR) (units (unknown) date) Not detected unknown) (unknown) (no (unknown) (unknown) Adenovirus (PCR) (units (unknown) date) unknown) (unknown) (no (unknown) (unknown) Age/Sex: 31 / F (units (unknown) date) unknown) (unknown) (no (unknown) (unknown) Albumin 3.6 (units (un known) date) unknown) (unknown) (no (unknown) (unknown) Albumin (units (unkno wn) date) unknown) (unknown) (no (unknown) (unknown) Albumin/Globulin (units (unknown) date) Ratio 0.8 L unknown) (unknown) (no (unknown) (unknown) Albumin/Globulin (units (unknown) date) Ratio unknown) (unknown) (no (unknown) (unknown) Alkaline (units (unkno wn) date) Phosphatase 46 unknown) (unknown) (no (unknown) (unknown) Alkaline (units (unkno wn) date) Phosphatase unknown) (unknown) (no (unknown) (unknown) Allergies (units (unkn own) date) unknown) (unknown) (no (unknown) (unknown) Allergy/AdvReac (units (unknown) date) Type Severity unknown) Reaction Status Date / Time (unknown) (no (unknown) (unknown) Assessment + (units (u nknown) date) Plan unknown) (unknown) (no (unknown) (unknown) B. pertussis DNA (units (unknown) date) (PCR) Not unknown) detected (unknown) (no (unknown) (unknown) B. pertussis DNA (units (unknown) date) (PCR) unknown) (unknown) (no (unknown) (unknown) B.parapertussis (units (unknown) date) DNA PCR Not unknown) detected (unknown) (no (unknown) (unknown) B.parapertussis (units (unknown) date) DNA PCR unknown) (unknown) (no (unknown) (unknown) BUN 14 (units (unkno wn) date) unknown) (unknown) (no (unknown) (unknown) BUN (units (unkno wn) date) unknown) (unknown) (no (unknown) (unknown) BUN/Creatinine (units (unknown) date) Ratio 21.9 unknown) (unknown) (no (unknown) (unknown) BUN/Creatinine (units (unknown) date) Ratio unknown) (unknown) (no (unknown) (unknown) Baso # (Auto) 0 (units (unknown) date) unknown) (unknown) (no (unknown) (unknown) Baso # (Auto) (units ( unknown) date) unknown) (unknown) (no (unknown) (unknown) Baso % (Auto) (units ( unknown) date) 0.5 unknown) (unknown) (no (unknown) (unknown) Baso % (Auto) (units ( unknown) date) unknown) (unknown) (no (unknown) (unknown) Blood Pressure (units (unknown) date) 100/57 L 97/56 L unknown) (unknown) (no (unknown) (unknown) Blood Pressure (units (unknown) date) 100/58 L unknown) (unknown) (no (unknown) (unknown) Blood Pressure (units (unknown) date) 100/62 unknown) (unknown) (no (unknown) (unknown) Blood Pressure (units (unknown) date) 100/66 101/67 unknown) (unknown) (no (unknown) (unknown) Blood Pressure (units (unknown) date) 101/67 unknown) (unknown) (no (unknown) (unknown) Blood Pressure (units (unknown) date) 101/68 unknown) (unknown) (no (unknown) (unknown) Blood Pressure (units (unknown) date) 102/70 unknown) (unknown) (no (unknown) (unknown) Blood Pressure (units (unknown) date) 103/61 87/54 L unknown) (unknown) (no (unknown) (unknown) Blood Pressure (units (unknown) date) 103/61 unknown) (unknown) (no (unknown) (unknown) Blood Pressure (units (unknown) date) 103/62 unknown) (unknown) (no (unknown) (unknown) Blood Pressure (units (unknown) date) 105/68 117/73 unknown) (unknown) (no (unknown) (unknown) Blood Pressure (units (unknown) date) 106/70 unknown) (unknown) (no (unknown) (unknown) Blood Pressure (units (unknown) date) 113/61 76/44 L unknown) (unknown) (no (unknown) (unknown) Blood Pressure (units (unknown) date) 85/54 L unknown) (unknown) (no (unknown) (unknown) Blood Pressure (units (unknown) date) 89/56 L unknown) (unknown) (no (unknown) (unknown) Blood Pressure (units (unknown) date) 90/58 L 96/58 L unknown) (unknown) (no (unknown) (unknown) Blood Pressure (units (unknown) date) 92/55 L 95/60 unknown) (unknown) (no (unknown) (unknown) Blood Pressure (units (unknown) date) 96/57 L unknown) (unknown) (no (unknown) (unknown) Blood Pressure (units (unknown) date) 96/63 unknown) (unknown) (no (unknown) (unknown) Blood Pressure (units (unknown) date) 97/58 L unknown) (unknown) (no (unknown) (unknown) Blood Pressure (units (unknown) date) 97/59 L unknown) (unknown) (no (unknown) (unknown) Blood Pressure (units (unknown) date) 98/59 L 98/60 unknown) (unknown) (no (unknown) (unknown) Blood Pressure (units (unknown) date) 98/61 103/63 unknown) (unknown) (no (unknown) (unknown) Blood Pressure (units (unknown) date) 98/61 98/62 unknown) (unknown) (no (unknown) (unknown) Blood Pressure (units (unknown) date) 98/64 unknown) (unknown) (no (unknown) (unknown) Blood Pressure (units (unknown) date) 98/65 99/65 unknown) (unknown) (no (unknown) (unknown) Blood Pressure (units (unknown) date) 99/62 114/72 unknown) (unknown) (no (unknown) (unknown) Blood Pressure (units (unknown) date) 99/63 99/61 unknown) (unknown) (no (unknown) (unknown) Blood Pressure (units (unknown) date) 99/64 97/65 unknown) (unknown) (no (unknown) (unknown) CK-MB (CK-2) (units (u nknown) date) 2.02 unknown) (unknown) (no (unknown) (unknown) CK-MB (CK-2) Rel (units (unknown) date) Index 0.2 L unknown) (unknown) (no (unknown) (unknown) CK-MB (CK-2) Rel (units (unknown) date) Index unknown) (unknown) (no (unknown) (unknown) CK-MB (CK-2) (units (u nknown) date) unknown) (unknown) (no (unknown) (unknown) Calcium 8.3 L (units ( unknown) date) unknown) (unknown) (no (unknown) (unknown) Calcium (units (unkno wn) date) unknown) (unknown) (no (unknown) (unknown) Carbon Dioxide (units (unknown) date) 23 unknown) (unknown) (no (unknown) (unknown) Carbon Dioxide (units (unknown) date) unknown) (unknown) (no (unknown) (unknown) Chief complaint: (units (unknown) date) she has wounds on unknown) head, not eating, mucas in nose (unknown) (no (unknown) (unknown) Chlamy (units (unkno wn) date) pneumoniae PCR unknown) Not detected (unknown) (no (unknown) (unknown) Chlamy (units (unkno wn) date) pneumoniae PCR unknown) (unknown) (no (unknown) (unknown) Chloride 99 (units (un known) date) unknown) (unknown) (no (unknown) (unknown) Chloride (units (unkno wn) date) unknown) (unknown) (no (unknown) (unknown) Coronavirus 229E (units (unknown) date) (PCR) Not unknown) detected (unknown) (no (unknown) (unknown) Coronavirus 229E (units (unknown) date) (PCR) unknown) (unknown) (no (unknown) (unknown) Coronavirus HKU1 (units (unknown) date) (PCR) Not unknown) detected (unknown) (no (unknown) (unknown) Coronavirus HKU1 (units (unknown) date) (PCR) unknown) (unknown) (no (unknown) (unknown) Coronavirus NL63 (units (unknown) date) (PCR) Not unknown) detected (unknown) (no (unknown) (unknown) Coronavirus NL63 (units (unknown) date) (PCR) unknown) (unknown) (no (unknown) (unknown) Coronavirus OC43 (units (unknown) date) (PCR) Not unknown) detected (unknown) (no (unknown) (unknown) Coronavirus OC43 (units (unknown) date) (PCR) unknown) (unknown) (no (unknown) (unknown) Creatinine 0.64 (units (unknown) date) unknown) (unknown) (no (unknown) (unknown) Creatinine (units (unk nown) date) unknown) (unknown) (no (unknown) (unknown) Critical Care (units ( unknown) date) time: unknown) (unknown) (no (unknown) (unknown) : 1990 (units (unknown) date) Acct:[id number] unknown) (unknown) (no (unknown) (unknown) Date Patient (units (u nknown) date) Seen: 02/07/22 unknown) (unknown) (no (unknown) (unknown) Date of Service: (units (unknown) date) 02/07/22 unknown) (unknown) (no (unknown) (unknown) ED due to (units (unkn own) date) development of unknown) fever last night. Patient is reportedly nonverbal at (unknown) (no (unknown) (unknown) Entero/Rhino (units (u nknown) date) (PCR) Not unknown) detected (unknown) (no (unknown) (unknown) Entero/Rhino (units (u nknown) date) (PCR) unknown) (unknown) (no (unknown) (unknown) Environment (units (un known) date) unknown) (unknown) (no (unknown) (unknown) Eos # (Auto) 0 (units (unknown) date) unknown) (unknown) (no (unknown) (unknown) Eos # (Auto) (units (u nknown) date) unknown) (unknown) (no (unknown) (unknown) Eos % (Auto) 0.0 (units (unknown) date) L unknown) (unknown) (no (unknown) (unknown) Eos % (Auto) (units (u nknown) date) unknown) (unknown) (no (unknown) (unknown) Estimated GFR > (units (unknown) date) 60 unknown) (unknown) (no (unknown) (unknown) Estimated GFR (units ( unknown) date) unknown) (unknown) (no (unknown) (unknown) Exam (units (unkno wn) date) unknown) (unknown) (no (unknown) (unknown) Family + Social (units (unknown) date) History unknown) (unknown) (no (unknown) (unknown) Feels Safe in (units ( unknown) date) Current Yes unknown) (unknown) (no (unknown) (unknown) Further ROS (units (un known) date) unable to obtain unknown) (unknown) (no (unknown) (unknown) Globulin 4.3 H (units (unknown) date) unknown) (unknown) (no (unknown) (unknown) Globulin (units (unkno wn) date) unknown) (unknown) (no (unknown) (unknown) Glucose 113 H (units ( unknown) date) unknown) (unknown) (no (unknown) (unknown) Glucose (units (unkno wn) date) unknown) (unknown) (no (unknown) (unknown) Hct 32.5 L (units (unk nown) date) unknown) (unknown) (no (unknown) (unknown) Hct (units (unkno wn) date) unknown) (unknown) (no (unknown) (unknown) Hgb 10.9 L (units (unk nown) date) unknown) (unknown) (no (unknown) (unknown) Hgb (units (unkno wn) date) unknown) (unknown) (no (unknown) (unknown) History + (units (unkn own) date) Physical Report unknown) (unknown) (no (unknown) (unknown) 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) (unknown) (no (unknown) (unknown) History of (units (unk nown) date) Present Illness unknown) (unknown) (no (unknown) (unknown) Home Medications (units (unknown) date) and Allergies unknown) (unknown) (no (unknown) (unknown) Home Medications (units (unknown) date) unknown) (unknown) (no (unknown) (unknown) Human (units (unkno wn) date) Metapneumovir PCR unknown) Not detected (unknown) (no (unknown) (unknown) Human (units (unkno wn) date) Metapneumovir PCR unknown) (unknown) (no (unknown) (unknown) I spent a total (units (unknown) date) of [] minutes of unknown) critical care time on this patient's care (unknown) (no (unknown) (unknown) Influenza A (units (un known) date) (RT-PCR) Flu a unknown) negative (unknown) (no (unknown) (unknown) Influenza A (units (un known) date) (RT-PCR) unknown) (unknown) (no (unknown) (unknown) Influenza B (units (un known) date) (RT-PCR) Flu b unknown) negative (unknown) (no (unknown) (unknown) Influenza B (units (un known) date) (RT-PCR) unknown) (unknown) (no (unknown) (unknown) Influenza Type A (units (unknown) date) (PCR) Not unknown) detected (unknown) (no (unknown) (unknown) Influenza Type A (units (unknown) date) (PCR) unknown) (unknown) (no (unknown) (unknown) Influenza Type B (units (unknown) date) (PCR) Not unknown) detected (unknown) (no (unknown) (unknown) Influenza Type B (units (unknown) date) (PCR) unknown) (unknown) (no (unknown) (unknown) [facility] (units (unknown) date) [address] unknown) [place] [address] (unknown) (no (unknown) (unknown) Laboratory (units (unk nown) date) Results - last 24 unknown) hr (unknown) (no (unknown) (unknown) Labs (units (unkno wn) date) unknown) (unknown) (no (unknown) (unknown) Labs: (units (unkno wn) date) unknown) (unknown) (no (unknown) (unknown) Lactate 1.6 (units (un known) date) unknown) (unknown) (no (unknown) (unknown) Lactate (units (unkno wn) date) unknown) (unknown) (no (unknown) (unknown) Lymph # (Auto) (units (unknown) date) 900 L unknown) (unknown) (no (unknown) (unknown) Lymph # (Auto) (units (unknown) date) unknown) (unknown) (no (unknown) (unknown) Lymph % (Auto) (units (unknown) date) 20.7 L unknown) (unknown) (no (unknown) (unknown) Lymph % (Auto) (units (unknown) date) unknown) (unknown) (no (unknown) (unknown) M. pneumoniae (units ( unknown) date) (PCR) Not unknown) detected (unknown) (no (unknown) (unknown) M. pneumoniae (units ( unknown) date) (PCR) unknown) (unknown) (no (unknown) (unknown) [id number] (units (unk nown) date) unknown) (unknown) (no (unknown) (unknown) MCH 28.7 (units (unkno wn) date) unknown) (unknown) (no (unknown) (unknown) MCH (units (unkno wn) date) unknown) (unknown) (no (unknown) (unknown) MCHC 33.5 (units (unkn own) date) unknown) (unknown) (no (unknown) (unknown) MCHC (units (unkno wn) date) unknown) (unknown) (no (unknown) (unknown) MCV 85.7 (units (unkno wn) date) unknown) (unknown) (no (unknown) (unknown) MCV (units (unkno wn) date) unknown) (unknown) (no (unknown) (unknown) Magnesium 2.1 (units ( unknown) date) unknown) (unknown) (no (unknown) (unknown) Magnesium (units (unkn own) date) unknown) (unknown) (no (unknown) (unknown) Medical History (units (unknown) date) (Updated 02/07/22 unknown) @ 15:46 by Bret Saeed MD) (unknown) (no (unknown) (unknown) Medication (units (unk nown) date) Instructions unknown) Recorded Confirmed Type (unknown) (no (unknown) (unknown) Meds (units (unkno wn) date) unknown) (unknown) (no (unknown) (unknown) Butts # (Auto) (units ( unknown) date) 500 unknown) (unknown) (no (unknown) (unknown) Butts # (Auto) (units ( unknown) date) unknown) (unknown) (no (unknown) (unknown) Butts % (Auto) (units ( unknown) date) 10.1 unknown) (unknown) (no (unknown) (unknown) Butts % (Auto) (units ( unknown) date) unknown) (unknown) (no (unknown) (unknown) Narrative: (units (unk nown) date) unknown) (unknown) (no (unknown) (unknown) Neut # (Auto) (units ( unknown) date) 3100 unknown) (unknown) (no (unknown) (unknown) Neut # (Auto) (units ( unknown) date) unknown) (unknown) (no (unknown) (unknown) Neut % (Auto) (units ( unknown) date) 68.7 unknown) (unknown) (no (unknown) (unknown) Neut % (Auto) (units ( unknown) date) unknown) (unknown) (no (unknown) (unknown) Objective (units (unkn own) date) unknown) (unknown) (no (unknown) (unknown) Oxygen Delivery (units (unknown) date) Method Room Air unknown) (unknown) (no (unknown) (unknown) Oxygen Delivery (units (unknown) date) Method unknown) (unknown) (no (unknown) (unknown) Parainfluenza 1 (units (unknown) date) (PCR) Not unknown) detected (unknown) (no (unknown) (unknown) Parainfluenza 1 (units (unknown) date) (PCR) unknown) (unknown) (no (unknown) (unknown) Parainfluenza 2 (units (unknown) date) (PCR) Not unknown) detected (unknown) (no (unknown) (unknown) Parainfluenza 2 (units (unknown) date) (PCR) unknown) (unknown) (no (unknown) (unknown) Parainfluenza 3 (units (unknown) date) (PCR) Not unknown) detected (unknown) (no (unknown) (unknown) Parainfluenza 3 (units (unknown) date) (PCR) unknown) (unknown) (no (unknown) (unknown) Parainfluenza 4 (units (unknown) date) (PCR) Not unknown) detected (unknown) (no (unknown) (unknown) Parainfluenza 4 (units (unknown) date) (PCR) unknown) (unknown) (no (unknown) (unknown) Patient History (units (unknown) date) unknown) (unknown) (no (unknown) (unknown) Patient: (units (unkno wn) date) Vanessa Mills unknown) B MR#: (unknown) (no (unknown) (unknown) Plt Count 155 (units ( unknown) date) unknown) (unknown) (no (unknown) (unknown) Plt Count (units (unkn own) date) unknown) (unknown) (no (unknown) (unknown) Potassium 3.6 (units ( unknown) date) unknown) (unknown) (no (unknown) (unknown) Potassium (units (unkn own) date) unknown) (unknown) (no (unknown) (unknown) Procalcitonin (units ( unknown) date) 1.08 H unknown) (unknown) (no (unknown) (unknown) Procalcitonin (units ( unknown) date) unknown) (unknown) (no (unknown) (unknown) Provider: (units (unkn own) date) Bret Saeed MD unknown) (unknown) (no (unknown) (unknown) Pulse Oximetry (units (unknown) date) 100 100 unknown) (unknown) (no (unknown) (unknown) Pulse Oximetry (units (unknown) date) 100 unknown) (unknown) (no (unknown) (unknown) Pulse Oximetry (units (unknown) date) 96 95 unknown) (unknown) (no (unknown) (unknown) Pulse Oximetry (units (unknown) date) 96 98 unknown) (unknown) (no (unknown) (unknown) Pulse Oximetry (units (unknown) date) 97 97 unknown) (unknown) (no (unknown) (unknown) Pulse Oximetry (units (unknown) date) 97 unknown) (unknown) (no (unknown) (unknown) Pulse Oximetry (units (unknown) date) 98 97 unknown) (unknown) (no (unknown) (unknown) Pulse Oximetry (units (unknown) date) 98 98 unknown) (unknown) (no (unknown) (unknown) Pulse Oximetry (units (unknown) date) 98 99 unknown) (unknown) (no (unknown) (unknown) Pulse Oximetry (units (unknown) date) 98 unknown) (unknown) (no (unknown) (unknown) Pulse Oximetry (units (unknown) date) 99 100 unknown) (unknown) (no (unknown) (unknown) Pulse Oximetry (units (unknown) date) 99 98 unknown) (unknown) (no (unknown) (unknown) Pulse Oximetry (units (unknown) date) 99 99 unknown) (unknown) (no (unknown) (unknown) Pulse Oximetry (units (unknown) date) 99 unknown) (unknown) (no (unknown) (unknown) Pulse Oximetry (units (unknown) date) unknown) (unknown) (no (unknown) (unknown) Pulse Rate 105 H (units (unknown) date) 93 H unknown) (unknown) (no (unknown) (unknown) Pulse Rate 109 H (units (unknown) date) unknown) (unknown) (no (unknown) (unknown) Pulse Rate 110 H (units (unknown) date) 110 H unknown) (unknown) (no (unknown) (unknown) Pulse Rate 111 H (units (unknown) date) 104 H unknown) (unknown) (no (unknown) (unknown) Pulse Rate 112 H (units (unknown) date) unknown) (unknown) (no (unknown) (unknown) Pulse Rate 117 H (units (unknown) date) unknown) (unknown) (no (unknown) (unknown) Pulse Rate 121 H (units (unknown) date) 117 H unknown) (unknown) (no (unknown) (unknown) Pulse Rate 123 H (units (unknown) date) unknown) (unknown) (no (unknown) (unknown) Pulse Rate 63 69 (units (unknown) date) unknown) (unknown) (no (unknown) (unknown) Pulse Rate 64 73 (units (unknown) date) unknown) (unknown) (no (unknown) (unknown) Pulse Rate 67 (units ( unknown) date) unknown) (unknown) (no (unknown) (unknown) Pulse Rate 69 67 (units (unknown) date) unknown) (unknown) (no (unknown) (unknown) Pulse Rate 70 (units ( unknown) date) unknown) (unknown) (no (unknown) (unknown) Pulse Rate 72 68 (units (unknown) date) unknown) (unknown) (no (unknown) (unknown) Pulse Rate 74 83 (units (unknown) date) unknown) (unknown) (no (unknown) (unknown) Pulse Rate 74 (units ( unknown) date) unknown) (unknown) (no (unknown) (unknown) Pulse Rate 77 70 (units (unknown) date) unknown) (unknown) (no (unknown) (unknown) Pulse Rate 77 (units ( unknown) date) unknown) (unknown) (no (unknown) (unknown) Pulse Rate 78 (units ( unknown) date) unknown) (unknown) (no (unknown) (unknown) Pulse Rate 79 91 (units (unknown) date) H unknown) (unknown) (no (unknown) (unknown) Pulse Rate 81 (units ( unknown) date) unknown) (unknown) (no (unknown) (unknown) Pulse Rate 89 80 (units (unknown) date) unknown) (unknown) (no (unknown) (unknown) Pulse Rate 89 (units ( unknown) date) unknown) (unknown) (no (unknown) (unknown) Pulse Rate 90 90 (units (unknown) date) unknown) (unknown) (no (unknown) (unknown) Pulse Rate 95 H (units (unknown) date) unknown) (unknown) (no (unknown) (unknown) Pulse Rate 96 H (units (unknown) date) 102 H unknown) (unknown) (no (unknown) (unknown) Pulse Rate 99 H (units (unknown) date) 100 H unknown) (unknown) (no (unknown) (unknown) Pulse Rate (units (unk nown) date) unknown) (unknown) (no (unknown) (unknown) RBC 3.79 L (units (unk nown) date) unknown) (unknown) (no (unknown) (unknown) RBC (units (unkno wn) date) unknown) (unknown) (no (unknown) (unknown) RDW 14.1 (units (unkno wn) date) unknown) (unknown) (no (unknown) (unknown) RDW (units (unkno wn) date) unknown) (unknown) (no (unknown) (unknown) RSV (PCR) (units (unkn own) date) Negative unknown) (unknown) (no (unknown) (unknown) RSV (PCR) Not (units ( unknown) date) detected unknown) (unknown) (no (unknown) (unknown) RSV (PCR) (units (unkn own) date) unknown) (unknown) (no (unknown) (unknown) Respiratory Rate (units (unknown) date) 16 17 unknown) (unknown) (no (unknown) (unknown) Respiratory Rate (units (unknown) date) 18 32 H unknown) (unknown) (no (unknown) (unknown) Respiratory Rate (units (unknown) date) 20 28 H unknown) (unknown) (no (unknown) (unknown) Respiratory Rate (units (unknown) date) 24 29 H unknown) (unknown) (no (unknown) (unknown) Respiratory Rate (units (unknown) date) 25 H unknown) (unknown) (no (unknown) (unknown) Respiratory Rate (units (unknown) date) 26 H 24 unknown) (unknown) (no (unknown) (unknown) Respiratory Rate (units (unknown) date) 27 H 29 H unknown) (unknown) (no (unknown) (unknown) Respiratory Rate (units (unknown) date) 27 H unknown) (unknown) (no (unknown) (unknown) Respiratory Rate (units (unknown) date) 28 H unknown) (unknown) (no (unknown) (unknown) Respiratory Rate (units (unknown) date) 30 H unknown) (unknown) (no (unknown) (unknown) Respiratory Rate (units (unknown) date) 31 H 26 H unknown) (unknown) (no (unknown) (unknown) Respiratory Rate (units (unknown) date) 31 H unknown) (unknown) (no (unknown) (unknown) Respiratory Rate (units (unknown) date) 33 H 36 H unknown) (unknown) (no (unknown) (unknown) Respiratory Rate (units (unknown) date) 33 H unknown) (unknown) (no (unknown) (unknown) Respiratory Rate (units (unknown) date) 34 H unknown) (unknown) (no (unknown) (unknown) Respiratory Rate (units (unknown) date) 36 H unknown) (unknown) (no (unknown) (unknown) Respiratory Rate (units (unknown) date) 37 H 37 H unknown) (unknown) (no (unknown) (unknown) Respiratory Rate (units (unknown) date) 38 H 32 H unknown) (unknown) (no (unknown) (unknown) Respiratory Rate (units (unknown) date) 46 H 35 H unknown) (unknown) (no (unknown) (unknown) Respiratory Rate (units (unknown) date) unknown) (unknown) (no (unknown) (unknown) Result Diagrams: (units (unknown) date) unknown) (unknown) (no (unknown) (unknown) Review of (units (unkn own) date) Systems unknown) (unknown) (no (unknown) (unknown) SARS-CoV-2 (PCR) (units (unknown) date) Negative unknown) (unknown) (no (unknown) (unknown) SARS-CoV-2 (PCR) (units (unknown) date) Not detected unknown) (unknown) (no (unknown) (unknown) SARS-CoV-2 (PCR) (units (unknown) date) unknown) (unknown) (no (unknown) (unknown) Safety + (units (unkno wn) date) Behavioral: unknown) (unknown) (no (unknown) (unknown) Schizophrenia (units ( unknown) date) unknown) (unknown) (no (unknown) (unknown) Signed By: (units (unk nown) date) unknown) (unknown) (no (unknown) (unknown) Smoking Status (units (unknown) date) Never smoker unknown) (unknown) (no (unknown) (unknown) Sodium 134 L (units (u nknown) date) unknown) (unknown) (no (unknown) (unknown) Sodium (units (unkno wn) date) unknown) (unknown) (no (unknown) (unknown) Substance Use (units ( unknown) date) Type does not use unknown) (unknown) (no (unknown) (unknown) Temperature (units (un known) date) 100.0 F H 99.9 F unknown) H (unknown) (no (unknown) (unknown) Temperature (units (un known) date) 100.4 F H unknown) (unknown) (no (unknown) (unknown) Temperature (units (un known) date) 100.8 F H unknown) (unknown) (no (unknown) (unknown) Temperature (units (un known) date) 101.1 F H 100.6 F unknown) H (unknown) (no (unknown) (unknown) Temperature (units (un known) date) 101.7 F H 101.3 F unknown) H (unknown) (no (unknown) (unknown) Temperature (units (un known) date) 101.8 F H unknown) (unknown) (no (unknown) (unknown) Temperature 98.4 (units (unknown) date) F unknown) (unknown) (no (unknown) (unknown) Temperature 98.6 (units (unknown) date) F 98.6 F unknown) (unknown) (no (unknown) (unknown) Temperature 98.6 (units (unknown) date) F unknown) (unknown) (no (unknown) (unknown) Temperature 98.8 (units (unknown) date) F unknown) (unknown) (no (unknown) (unknown) Temperature 99.0 (units (unknown) date) F 99.0 F unknown) (unknown) (no (unknown) (unknown) Temperature 99.1 (units (unknown) date) F 99.1 F unknown) (unknown) (no (unknown) (unknown) Temperature 99.1 (units (unknown) date) F unknown) (unknown) (no (unknown) (unknown) Temperature 99.3 (units (unknown) date) F unknown) (unknown) (no (unknown) (unknown) Temperature 99.9 (units (unknown) date) F H 99.7 F H unknown) (unknown) (no (unknown) (unknown) Temperature (units (un known) date) unknown) (unknown) (no (unknown) (unknown) Time Patient (units (u nknown) date) Seen: 15:00 unknown) (unknown) (no (unknown) (unknown) Time Spent With (units (unknown) date) Patient unknown) (unknown) (no (unknown) (unknown) Tobacco + (units (unkn own) date) Substance use: unknown) (unknown) (no (unknown) (unknown) Total Bilirubin (units (unknown) date) 0.5 unknown) (unknown) (no (unknown) (unknown) Total Bilirubin (units (unknown) date) unknown) (unknown) (no (unknown) (unknown) Total Creatine (units (unknown) date) Kinase 825 H unknown) (unknown) (no (unknown) (unknown) Total Creatine (units (unknown) date) Kinase unknown) (unknown) (no (unknown) (unknown) Total Protein (units ( unknown) date) 7.9 unknown) (unknown) (no (unknown) (unknown) Total Protein (units ( unknown) date) unknown) (unknown) (no (unknown) (unknown) Troponin I < (units (u nknown) date) 0.012 unknown) (unknown) (no (unknown) (unknown) Troponin I (units (unk nown) date) unknown) (unknown) (no (unknown) (unknown) Ur Culture (units (unk nown) date) Indicated? Cult unknown) not indicated (unknown) (no (unknown) (unknown) Ur Culture (units (unk nown) date) Indicated? unknown) (unknown) (no (unknown) (unknown) Ur Squamous (units (un known) date) Epith Cells 1-5 unknown) /hpf (unknown) (no (unknown) (unknown) Ur Squamous (units (un known) date) Epith Cells unknown) (unknown) (no (unknown) (unknown) Ur Transition (units ( unknown) date) Epith Cell unknown) 0-1/hpf (unknown) (no (unknown) (unknown) Ur Transition (units ( unknown) date) Epith Cell unknown) (unknown) (no (unknown) (unknown) Urine Bacteria (units (unknown) date) None seen unknown) (unknown) (no (unknown) (unknown) Urine Bacteria (units (unknown) date) unknown) (unknown) (no (unknown) (unknown) Urine (units (unknown) date) Test Negative unknown) (unknown) (no (unknown) (unknown) Urine (units (unknown) date) Test unknown) (unknown) (no (unknown) (unknown) Urine RBC None (units (unknown) date) seen unknown) (unknown) (no (unknown) (unknown) Urine RBC (units (unkn own) date) unknown) (unknown) (no (unknown) (unknown) Urine WBC (units (unkn own) date) 1-5/hpf unknown) (unknown) (no (unknown) (unknown) Urine WBC (units (unkn own) date) unknown) (unknown) (no (unknown) (unknown) Vital Signs (units (un known) date) unknown) (unknown) (no (unknown) (unknown) WBC 4.5 (units (unkno wn) date) unknown) (unknown) (no (unknown) (unknown) WBC (units (unkno wn) date) unknown) (unknown) (no (unknown) (unknown) Zyprexa. She has (units (unknown) date) history of DVT unknown) back in 2018 for which she was on apixaban and (unknown) (no (unknown) (unknown) [Embedded Image (units (unknown) date) Not Available] unknown) (unknown) (no (unknown) (unknown) apixaban 5 mg (units ( unknown) date) tablet (Eliquis) unknown) 5 mg PO BID 08/14/18 03/22/19 History (unknown) (no (unknown) (unknown) baseline (units (unkno wn) date) secondary to unknown) schizophrenia and history was obtained from mom via (unknown) (no (unknown) (unknown) central line put (units (unknown) date) in while in the unknown) ER. Apparently she was also screaming and (unknown) (no (unknown) (unknown) days ago. On ED (units (unknown) date) evaluation, unknown) patient was tachycardic and febrile with temp (unknown) (no (unknown) (unknown) face areas. She (units (unknown) date) was seen at unknown) [facility] and started on cephalexin about 10 (unknown) (no (unknown) (unknown) fluoxetine 10 mg (units (unknown) date) capsule 10 mg PO unknown) DAILY #90 caps 08/28/19 Rx (unknown) (no (unknown) (unknown) got started on (units (unknown) date) Levophed, unknown) currently on 3 mcg with map of 65. She had right IJ (unknown) (no (unknown) (unknown) having (units (unkno wn) date) uncontrollable unknown) behavior in the ER but calm down nicely after given 20 mg (unknown) (no (unknown) (unknown) is no longer on (units (unknown) date) blood thinner. unknown) Family has not noticed patient having a cough, (unknown) (no (unknown) (unknown) mirtazapine (units (un known) date) AdvReac unknown) Intermediate Rash severe Verified 01/30/22 06:52 (unknown) (no (unknown) (unknown) olanzapine 15 mg (units (unknown) date) tablet 15 mg PO unknown) BEDTIME #90 tabs 09/23/20 Rx (unknown) (no (unknown) (unknown) or complaining (units (unknown) date) of abdominal unknown) pain. (unknown) (no (unknown) (unknown) sepsis protocol, (units (unknown) date) and subsequently unknown) dropped her blood pressure to 87/55. She then (unknown) (no (unknown) (unknown) today; this time (units (unknown) date) is exclusive of unknown) procedural time. 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 (units (un known) date) Patient is unknown) reported to have frequent itching/picking on head and Result panel 458 (unknown) (no date) (unknown) (unknown) 2351 ng/ml (unkn own) (unknown) (no date) (unknown) (unknown) 2351 ng/ml (unkn own) Result panel 459 (unknown) (no (unknown) (unknown) (no value) (units (unk nown) date) unknown) (unknown) (no (unknown) (unknown) (past 8 hours): (units (unknown) date) unknown) (unknown) (no (unknown) (unknown) -IV azithromycin (units (unknown) date) added for unknown) atypical coverage due to interstitial infiltrates on (unknown) (no (unknown) (unknown) -blood cultures (units (unknown) date) x2 pending unknown) (unknown) (no (unknown) (unknown) -chest x-ray (units (u nknown) date) personally unknown) reviewed and shows nonspecific diffuse interstitial (unknown) (no (unknown) (unknown) -continue on (units (u nknown) date) vancomycin and unknown) Zosyn started in the ED (unknown) (no (unknown) (unknown) -currently on (units ( unknown) date) low-dose Levophed unknown) to maintain map greater than 65 (unknown) (no (unknown) (unknown) -differential (units ( unknown) date) diagnosis unknown) includes non infectious source of fever and hypotension (unknown) (no (unknown) (unknown) -event was (units (unk nown) date) reportedly in unknown) 2018, unknown whether IVC filter was ever removed, (unknown) (no (unknown) (unknown) -modified Wells (units (unknown) date) score is 3 based unknown) on tachycardia and history of PE (unknown) (no (unknown) (unknown) -nasal MRSA swab (units (unknown) date) unknown) (unknown) (no (unknown) (unknown) -normal (units (unkno wn) date) urinalysis, unknown) respiratory panel PCR, normal WBC without left shift but (unknown) (no (unknown) (unknown) -patient got (units (u nknown) date) Zyprexa in the ED unknown) (unknown) (no (unknown) (unknown) -patient (units (unkno wn) date) presents febrile, unknown) tachycardic and tachypneic and became hypotensive in (unknown) (no (unknown) (unknown) -per discussion (units (unknown) date) with Psychiatry, unknown) increased olanzapine from 50 mg to 20 mg at (unknown) (no (unknown) (unknown) -per discussion (units (unknown) date) with tele ICU, unknown) order D-dimer-if D-dimer elevated and patient (unknown) (no (unknown) (unknown) -possible source (units (unknown) date) is bacteremia due unknown) to skin lesions on scalp and neck, no mastoid (unknown) (no (unknown) (unknown) -reviewed case (units (unknown) date) workup and unknown) management with Dr Philip, tele ICU (unknown) (no (unknown) (unknown) -right IJ (units (unkn own) date) central line unknown) placed in the ED (unknown) (no (unknown) (unknown) -urine tox (units (unk nown) date) screen unknown) (unknown) (no (unknown) (unknown) -wound culture (units (unknown) date) obtained from unknown) right ear drainage (unknown) (no (unknown) (unknown) 08:10 02/07/22 (units (unknown) date) unknown) (unknown) (no (unknown) (unknown) 08:11 02/07/22 (units (unknown) date) unknown) (unknown) (no (unknown) (unknown) 08:22 08:22 (units (un known) date) 08:22 unknown) (unknown) (no (unknown) (unknown) 08:27 08:27 (units (un known) date) 08:27 unknown) (unknown) (no (unknown) (unknown) 08:30 02/07/22 (units (unknown) date) unknown) (unknown) (no (unknown) (unknown) 08:30 (units (unkno wn) date) unknown) (unknown) (no (unknown) (unknown) 08:41 02/07/22 (units (unknown) date) unknown) (unknown) (no (unknown) (unknown) 08:41 (units (unkno wn) date) unknown) (unknown) (no (unknown) (unknown) 08:42 09:20 (units (un known) date) 09:20 unknown) (unknown) (no (unknown) (unknown) 08:50 02/07/22 (units (unknown) date) unknown) (unknown) (no (unknown) (unknown) 09:00 02/07/22 (units (unknown) date) unknown) (unknown) (no (unknown) (unknown) 09:00 (units (unkno wn) date) unknown) (unknown) (no (unknown) (unknown) 09:20 02/07/22 (units (unknown) date) unknown) (unknown) (no (unknown) (unknown) 09:20 (units (unkno wn) date) unknown) (unknown) (no (unknown) (unknown) 09:30 02/07/22 (units (unknown) date) unknown) (unknown) (no (unknown) (unknown) 09:40 02/07/22 (units (unknown) date) unknown) (unknown) (no (unknown) (unknown) 09:40 (units (unkno wn) date) unknown) (unknown) (no (unknown) (unknown) 09:50 02/07/22 (units (unknown) date) unknown) (unknown) (no (unknown) (unknown) 1. Septic shock (units (unknown) date) unknown) (unknown) (no (unknown) (unknown) 10:00 02/07/22 (units (unknown) date) unknown) (unknown) (no (unknown) (unknown) 10:00 (units (unkno wn) date) unknown) (unknown) (no (unknown) (unknown) 10:13 02/07/22 (units (unknown) date) unknown) (unknown) (no (unknown) (unknown) 10:13 (units (unkno wn) date) unknown) (unknown) (no (unknown) (unknown) 10:30 02/07/22 (units (unknown) date) unknown) (unknown) (no (unknown) (unknown) 11:00 02/07/22 (units (unknown) date) unknown) (unknown) (no (unknown) (unknown) 11:00 (units (unkno wn) date) unknown) (unknown) (no (unknown) (unknown) 11:30 02/07/22 (units (unknown) date) unknown) (unknown) (no (unknown) (unknown) 11:30 (units (unkno wn) date) unknown) (unknown) (no (unknown) (unknown) 02/07/22 08:27 (units (unknown) date) unknown) (unknown) (no (unknown) (unknown) 02/07/22 (units (unkno wn) date) 02/07/22 02/07/22 unknown) (unknown) (no (unknown) (unknown) 02/07/22 1612 (units ( unknown) date) unknown) (unknown) (no (unknown) (unknown) 02/07/22 (units (unkno wn) date) unknown) (unknown) (no (unknown) (unknown) 12:00 02/07/22 (units (unknown) date) unknown) (unknown) (no (unknown) (unknown) 12:00 (units (unkno wn) date) unknown) (unknown) (no (unknown) (unknown) 12:30 02/07/22 (units (unknown) date) unknown) (unknown) (no (unknown) (unknown) 12:30 (units (unkno wn) date) unknown) (unknown) (no (unknown) (unknown) 12:33 02/07/22 (units (unknown) date) unknown) (unknown) (no (unknown) (unknown) 12:33 (units (unkno wn) date) unknown) (unknown) (no (unknown) (unknown) 12:37 02/07/22 (units (unknown) date) unknown) (unknown) (no (unknown) (unknown) 12:40 02/07/22 (units (unknown) date) unknown) (unknown) (no (unknown) (unknown) 12:40 (units (unkno wn) date) unknown) (unknown) (no (unknown) (unknown) 12:52 02/07/22 (units (unknown) date) unknown) (unknown) (no (unknown) (unknown) 12:52 (units (unkno wn) date) unknown) (unknown) (no (unknown) (unknown) 13:00 02/07/22 (units (unknown) date) unknown) (unknown) (no (unknown) (unknown) 13:01 02/07/22 (units (unknown) date) unknown) (unknown) (no (unknown) (unknown) 13:01 (units (unkno wn) date) unknown) (unknown) (no (unknown) (unknown) 13:05 02/07/22 (units (unknown) date) unknown) (unknown) (no (unknown) (unknown) 13:05 (units (unkno wn) date) unknown) (unknown) (no (unknown) (unknown) 13:10 02/07/22 (units (unknown) date) unknown) (unknown) (no (unknown) (unknown) 13:15 02/07/22 (units (unknown) date) unknown) (unknown) (no (unknown) (unknown) 13:15 (units (unkno wn) date) unknown) (unknown) (no (unknown) (unknown) 13:20 02/07/22 (units (unknown) date) unknown) (unknown) (no (unknown) (unknown) 13:20 (units (unkno wn) date) unknown) (unknown) (no (unknown) (unknown) 13:25 02/07/22 (units (unknown) date) unknown) (unknown) (no (unknown) (unknown) 13:30 02/07/22 (units (unknown) date) unknown) (unknown) (no (unknown) (unknown) 13:30 (units (unkno wn) date) unknown) (unknown) (no (unknown) (unknown) 13:35 02/07/22 (units (unknown) date) unknown) (unknown) (no (unknown) (unknown) 13:35 (units (unkno wn) date) unknown) (unknown) (no (unknown) (unknown) 13:40 02/07/22 (units (unknown) date) unknown) (unknown) (no (unknown) (unknown) 13:45 02/07/22 (units (unknown) date) unknown) (unknown) (no (unknown) (unknown) 13:45 (units (unkno wn) date) unknown) (unknown) (no (unknown) (unknown) 13:50 02/07/22 (units (unknown) date) unknown) (unknown) (no (unknown) (unknown) 13:50 (units (unkno wn) date) unknown) (unknown) (no (unknown) (unknown) 13:55 02/07/22 (units (unknown) date) unknown) (unknown) (no (unknown) (unknown) 14:00 02/07/22 (units (unknown) date) unknown) (unknown) (no (unknown) (unknown) 14:00 (units (unkno wn) date) unknown) (unknown) (no (unknown) (unknown) 14:05 02/07/22 (units (unknown) date) unknown) (unknown) (no (unknown) (unknown) 14:05 (units (unkno wn) date) unknown) (unknown) (no (unknown) (unknown) 14:10 02/07/22 (units (unknown) date) unknown) (unknown) (no (unknown) (unknown) 14:15 02/07/22 (units (unknown) date) unknown) (unknown) (no (unknown) (unknown) 14:15 (units (unkno wn) date) unknown) (unknown) (no (unknown) (unknown) 14:20 02/07/22 (units (unknown) date) unknown) (unknown) (no (unknown) (unknown) 14:20 (units (unkno wn) date) unknown) (unknown) (no (unknown) (unknown) 14:25 02/07/22 (units (unknown) date) unknown) (unknown) (no (unknown) (unknown) 14:30 02/07/22 (units (unknown) date) unknown) (unknown) (no (unknown) (unknown) 14:30 (units (unkno wn) date) unknown) (unknown) (no (unknown) (unknown) 14:35 02/07/22 (units (unknown) date) unknown) (unknown) (no (unknown) (unknown) 14:35 (units (unkno wn) date) unknown) (unknown) (no (unknown) (unknown) 14:40 02/07/22 (units (unknown) date) unknown) (unknown) (no (unknown) (unknown) 14:45 (units (unkno wn) date) unknown) (unknown) (no (unknown) (unknown) 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 Schizophrenia (units (unknown) date) unknown) (unknown) (no (unknown) (unknown) 31-year-old (units (un known) date) female with unknown) history of poorly controlled schizophrenia presented to (unknown) (no (unknown) (unknown) ALT 33 (units (unkno wn) date) unknown) (unknown) (no (unknown) (unknown) ALT (units (unkno wn) date) unknown) (unknown) (no (unknown) (unknown) AST 87 H (units (unkno wn) date) unknown) (unknown) (no (unknown) (unknown) AST (units (unkno wn) date) unknown) (unknown) (no (unknown) (unknown) Abdomen: Soft (units ( unknown) date) and nontender, no unknown) HSM (unknown) (no (unknown) (unknown) Adenovirus (PCR) (units (unknown) date) Not detected unknown) (unknown) (no (unknown) (unknown) Adenovirus (PCR) (units (unknown) date) unknown) (unknown) (no (unknown) (unknown) Age/Sex: 31 / F (units (unknown) date) unknown) (unknown) (no (unknown) (unknown) Albumin 3.6 (units (un known) date) unknown) (unknown) (no (unknown) (unknown) Albumin (units (unkno wn) date) unknown) (unknown) (no (unknown) (unknown) Albumin/Globulin (units (unknown) date) Ratio 0.8 L unknown) (unknown) (no (unknown) (unknown) Albumin/Globulin (units (unknown) date) Ratio unknown) (unknown) (no (unknown) (unknown) Alkaline (units (unkno wn) date) Phosphatase 46 unknown) (unknown) (no (unknown) (unknown) Alkaline (units (unkno wn) date) Phosphatase unknown) (unknown) (no (unknown) (unknown) Allergies (units (unkn own) date) unknown) (unknown) (no (unknown) (unknown) Allergy/AdvReac (units (unknown) date) Type Severity unknown) Reaction Status Date / Time (unknown) (no (unknown) (unknown) Assessment + (units (u nknown) date) Plan narrative: unknown) (unknown) (no (unknown) (unknown) Assessment + (units (u nknown) date) Plan unknown) (unknown) (no (unknown) (unknown) B. pertussis DNA (units (unknown) date) (PCR) Not unknown) detected (unknown) (no (unknown) (unknown) B. pertussis DNA (units (unknown) date) (PCR) unknown) (unknown) (no (unknown) (unknown) B.parapertussis (units (unknown) date) DNA PCR Not unknown) detected (unknown) (no (unknown) (unknown) B.parapertussis (units (unknown) date) DNA PCR unknown) (unknown) (no (unknown) (unknown) BUN 14 (units (unkno wn) date) unknown) (unknown) (no (unknown) (unknown) BUN (units (unkno wn) date) unknown) (unknown) (no (unknown) (unknown) BUN/Creatinine (units (unknown) date) Ratio 21.9 unknown) (unknown) (no (unknown) (unknown) BUN/Creatinine (units (unknown) date) Ratio unknown) (unknown) (no (unknown) (unknown) Baso # (Auto) 0 (units (unknown) date) unknown) (unknown) (no (unknown) (unknown) Baso # (Auto) (units ( unknown) date) unknown) (unknown) (no (unknown) (unknown) Baso % (Auto) (units ( unknown) date) 0.5 unknown) (unknown) (no (unknown) (unknown) Baso % (Auto) (units ( unknown) date) unknown) (unknown) (no (unknown) (unknown) Blood Pressure (units (unknown) date) 100/57 L 97/56 L unknown) (unknown) (no (unknown) (unknown) Blood Pressure (units (unknown) date) 100/58 L unknown) (unknown) (no (unknown) (unknown) Blood Pressure (units (unknown) date) 100/62 unknown) (unknown) (no (unknown) (unknown) Blood Pressure (units (unknown) date) 100/66 101/67 unknown) (unknown) (no (unknown) (unknown) Blood Pressure (units (unknown) date) 101/67 unknown) (unknown) (no (unknown) (unknown) Blood Pressure (units (unknown) date) 101/68 unknown) (unknown) (no (unknown) (unknown) Blood Pressure (units (unknown) date) 102/70 unknown) (unknown) (no (unknown) (unknown) Blood Pressure (units (unknown) date) 103/61 87/54 L unknown) (unknown) (no (unknown) (unknown) Blood Pressure (units (unknown) date) 103/61 unknown) (unknown) (no (unknown) (unknown) Blood Pressure (units (unknown) date) 103/62 unknown) (unknown) (no (unknown) (unknown) Blood Pressure (units (unknown) date) 105/68 117/73 unknown) (unknown) (no (unknown) (unknown) Blood Pressure (units (unknown) date) 106/70 unknown) (unknown) (no (unknown) (unknown) Blood Pressure (units (unknown) date) 113/61 76/44 L unknown) (unknown) (no (unknown) (unknown) Blood Pressure (units (unknown) date) 85/54 L unknown) (unknown) (no (unknown) (unknown) Blood Pressure (units (unknown) date) 89/56 L unknown) (unknown) (no (unknown) (unknown) Blood Pressure (units (unknown) date) 90/58 L 96/58 L unknown) (unknown) (no (unknown) (unknown) Blood Pressure (units (unknown) date) 92/55 L 95/60 unknown) (unknown) (no (unknown) (unknown) Blood Pressure (units (unknown) date) 96/57 L unknown) (unknown) (no (unknown) (unknown) Blood Pressure (units (unknown) date) 96/63 unknown) (unknown) (no (unknown) (unknown) Blood Pressure (units (unknown) date) 97/58 L unknown) (unknown) (no (unknown) (unknown) Blood Pressure (units (unknown) date) 97/59 L unknown) (unknown) (no (unknown) (unknown) Blood Pressure (units (unknown) date) 98/59 L 98/60 unknown) (unknown) (no (unknown) (unknown) Blood Pressure (units (unknown) date) 98/61 103/63 unknown) (unknown) (no (unknown) (unknown) Blood Pressure (units (unknown) date) 98/61 98/62 unknown) (unknown) (no (unknown) (unknown) Blood Pressure (units (unknown) date) 98/64 unknown) (unknown) (no (unknown) (unknown) Blood Pressure (units (unknown) date) 98/65 99/65 unknown) (unknown) (no (unknown) (unknown) Blood Pressure (units (unknown) date) 99/62 114/72 unknown) (unknown) (no (unknown) (unknown) Blood Pressure (units (unknown) date) 63 99/61 unknown) (unknown) (no (unknown) (unknown) Blood Pressure (units (unknown) date) 64 97/65 unknown) (unknown) (no (unknown) (unknown) CK-MB (CK-2) (units (u nknown) date) 2.02 unknown) (unknown) (no (unknown) (unknown) CK-MB (CK-2) Rel (units (unknown) date) Index 0.2 L unknown) (unknown) (no (unknown) (unknown) CK-MB (CK-2) Rel (units (unknown) date) Index unknown) (unknown) (no (unknown) (unknown) CK-MB (CK-2) (units (u nknown) date) unknown) (unknown) (no (unknown) (unknown) Calcium 8.3 L (units ( unknown) date) unknown) (unknown) (no (unknown) (unknown) Calcium (units (unkno wn) date) unknown) (unknown) (no (unknown) (unknown) Carbon Dioxide (units (unknown) date) 23 unknown) (unknown) (no (unknown) (unknown) Carbon Dioxide (units (unknown) date) unknown) (unknown) (no (unknown) (unknown) Chief complaint: (units (unknown) date) she has wounds on unknown) head, not eating, mucas in nose (unknown) (no (unknown) (unknown) Chlamy (units (unkno wn) date) pneumoniae PCR unknown) Not detected (unknown) (no (unknown) (unknown) Chlamy (units (unkno wn) date) pneumoniae PCR unknown) (unknown) (no (unknown) (unknown) Chloride 99 (units (un known) date) unknown) (unknown) (no (unknown) (unknown) Chloride (units (unkno wn) date) unknown) (unknown) (no (unknown) (unknown) Code status: (units (u nknown) date) Full code unknown) (unknown) (no (unknown) (unknown) Conjunctiva (units (un known) date) clear. No unknown) drainage from eyes. (unknown) (no (unknown) (unknown) Coronavirus 229E (units (unknown) date) (PCR) Not unknown) detected (unknown) (no (unknown) (unknown) Coronavirus 229E (units (unknown) date) (PCR) unknown) (unknown) (no (unknown) (unknown) Coronavirus HKU1 (units (unknown) date) (PCR) Not unknown) detected (unknown) (no (unknown) (unknown) Coronavirus HKU1 (units (unknown) date) (PCR) unknown) (unknown) (no (unknown) (unknown) Coronavirus NL63 (units (unknown) date) (PCR) Not unknown) detected (unknown) (no (unknown) (unknown) Coronavirus NL63 (units (unknown) date) (PCR) unknown) (unknown) (no (unknown) (unknown) Coronavirus OC43 (units (unknown) date) (PCR) Not unknown) detected (unknown) (no (unknown) (unknown) Coronavirus OC43 (units (unknown) date) (PCR) unknown) (unknown) (no (unknown) (unknown) Creatinine 0.64 (units (unknown) date) unknown) (unknown) (no (unknown) (unknown) Creatinine (units (unk nown) date) unknown) (unknown) (no (unknown) (unknown) Critical Care (units ( unknown) date) time: unknown) (unknown) (no (unknown) (unknown) : 1990 (units (unknown) date) Acct:[id number] unknown) (unknown) (no (unknown) (unknown) DVT prophylaxis: (units (unknown) date) Enoxaparin unknown) (unknown) (no (unknown) (unknown) Date Patient (units (u nknown) date) Seen: 02/07/22 unknown) (unknown) (no (unknown) (unknown) Date of Service: (units (unknown) date) 02/07/22 unknown) (unknown) (no (unknown) (unknown) ED due to (units (unkn own) date) development of unknown) fever last night. Patient is reportedly nonverbal at (unknown) (no (unknown) (unknown) Entero/Rhino (units (u nknown) date) (PCR) Not unknown) detected (unknown) (no (unknown) (unknown) Entero/Rhino (units (u nknown) date) (PCR) unknown) (unknown) (no (unknown) (unknown) Environment (units (un known) date) unknown) (unknown) (no (unknown) (unknown) Eos # (Auto) 0 (units (unknown) date) unknown) (unknown) (no (unknown) (unknown) Eos # (Auto) (units (u nknown) date) unknown) (unknown) (no (unknown) (unknown) Eos % (Auto) 0.0 (units (unknown) date) L unknown) (unknown) (no (unknown) (unknown) Eos % (Auto) (units (u nknown) date) unknown) (unknown) (no (unknown) (unknown) Estimated GFR > (units (unknown) date) 60 unknown) (unknown) (no (unknown) (unknown) Estimated GFR (units ( unknown) date) unknown) (unknown) (no (unknown) (unknown) Exam Narrative: (units (unknown) date) unknown) (unknown) (no (unknown) (unknown) Exam (units (unkno wn) date) unknown) (unknown) (no (unknown) (unknown) Extremities: No (units (unknown) date) skin lesions on unknown) arms or legs, no edema or rash (unknown) (no (unknown) (unknown) Family + Social (units (unknown) date) History unknown) (unknown) (no (unknown) (unknown) Feels Safe in (units ( unknown) date) Current Yes unknown) (unknown) (no (unknown) (unknown) Further ROS (units (un known) date) unable to obtain unknown) due to patient's baseline altered mental status (unknown) (no (unknown) (unknown) General: (units (unkno wn) date) Presently patient unknown) is alert, calm, nonverbal and appearing comfortable (unknown) (no (unknown) (unknown) Globulin 4.3 H (units (unknown) date) unknown) (unknown) (no (unknown) (unknown) Globulin (units (unkno wn) date) unknown) (unknown) (no (unknown) (unknown) Glucose 113 H (units ( unknown) date) unknown) (unknown) (no (unknown) (unknown) Glucose (units (unkno wn) date) unknown) (unknown) (no (unknown) (unknown) HEENT: There is (units (unknown) date) extensive areas unknown) macular erythema and scabbing on the top and (unknown) (no (unknown) (unknown) Hct 32.5 L (units (unk nown) date) unknown) (unknown) (no (unknown) (unknown) Hct (units (unkno wn) date) unknown) (unknown) (no (unknown) (unknown) Heart: Regular (units (unknown) date) rate and rhythm, unknown) no murmur (unknown) (no (unknown) (unknown) Hgb 10.9 L (units (unk nown) date) unknown) (unknown) (no (unknown) (unknown) Hgb (units (unkno wn) date) unknown) (unknown) (no (unknown) (unknown) History + (units (unkn own) date) Physical Report unknown) (unknown) (no (unknown) (unknown) 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) (unknown) (no (unknown) (unknown) History of (units (unk nown) date) Present Illness unknown) (unknown) (no (unknown) (unknown) 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 (unknown) (no (unknown) (unknown) Home Medications (units (unknown) date) and Allergies unknown) (unknown) (no (unknown) (unknown) Home Medications (units (unknown) date) unknown) (unknown) (no (unknown) (unknown) Human (units (unkno wn) date) Metapneumovir PCR unknown) Not detected (unknown) (no (unknown) (unknown) Human (units (unkno wn) date) Metapneumovir PCR unknown) (unknown) (no (unknown) (unknown) I spent a total (units (unknown) date) of [] minutes of unknown) critical care time on this patient's care (unknown) (no (unknown) (unknown) Influenza A (units (un known) date) (RT-PCR) Flu a unknown) negative (unknown) (no (unknown) (unknown) Influenza A (units (un known) date) (RT-PCR) unknown) (unknown) (no (unknown) (unknown) Influenza B (units (un known) date) (RT-PCR) Flu b unknown) negative (unknown) (no (unknown) (unknown) Influenza B (units (un known) date) (RT-PCR) unknown) (unknown) (no (unknown) (unknown) Influenza Type A (units (unknown) date) (PCR) Not unknown) detected (unknown) (no (unknown) (unknown) Influenza Type A (units (unknown) date) (PCR) unknown) (unknown) (no (unknown) (unknown) Influenza Type B (units (unknown) date) (PCR) Not unknown) detected (unknown) (no (unknown) (unknown) Influenza Type B (units (unknown) date) (PCR) unknown) (unknown) (no (unknown) (unknown) [facility] (units (unknown) date) [address] unknown) [place] [address] (unknown) (no (unknown) (unknown) Laboratory (units (unk nown) date) Results - last unknown) hr (unknown) (no (unknown) (unknown) Labs (units (unkno wn) date) unknown) (unknown) (no (unknown) (unknown) Labs: (units (unkno wn) date) unknown) (unknown) (no (unknown) (unknown) Lactate 1.6 (units (un known) date) unknown) (unknown) (no (unknown) (unknown) Lactate (units (unkno wn) date) unknown) (unknown) (no (unknown) (unknown) Lungs: Clear to (units (unknown) date) auscultation unknown) (unknown) (no (unknown) (unknown) Lymph # (Auto) (units (unknown) date) 900 L unknown) (unknown) (no (unknown) (unknown) Lymph # (Auto) (units (unknown) date) unknown) (unknown) (no (unknown) (unknown) Lymph % (Auto) (units (unknown) date) 20.7 L unknown) (unknown) (no (unknown) (unknown) Lymph % (Auto) (units (unknown) date) unknown) (unknown) (no (unknown) (unknown) M. pneumoniae (units ( unknown) date) (PCR) Not unknown) detected (unknown) (no (unknown) (unknown) M. pneumoniae (units ( unknown) date) (PCR) unknown) (unknown) (no (unknown) (unknown) [id number] (units (unk nown) date) unknown) (unknown) (no (unknown) (unknown) MCH 28.7 (units (unkno wn) date) unknown) (unknown) (no (unknown) (unknown) MCH (units (unkno wn) date) unknown) (unknown) (no (unknown) (unknown) MCHC 33.5 (units (unkn own) date) unknown) (unknown) (no (unknown) (unknown) MCHC (units (unkno wn) date) unknown) (unknown) (no (unknown) (unknown) MCV 85.7 (units (unkno wn) date) unknown) (unknown) (no (unknown) (unknown) MCV (units (unkno wn) date) unknown) (unknown) (no (unknown) (unknown) Magnesium 2.1 (units ( unknown) date) unknown) (unknown) (no (unknown) (unknown) Magnesium (units (unkn own) date) unknown) (unknown) (no (unknown) (unknown) Medical History (units (unknown) date) (Updated 02/07/22 unknown) @ 15:57 by Bret Saeed MD) (unknown) (no (unknown) (unknown) Medication (units (unk nown) date) Instructions unknown) Recorded Confirmed Type (unknown) (no (unknown) (unknown) Meds (units (unkno wn) date) unknown) (unknown) (no (unknown) (unknown) Butts # (Auto) (units ( unknown) date) 500 unknown) (unknown) (no (unknown) (unknown) Butts # (Auto) (units ( unknown) date) unknown) (unknown) (no (unknown) (unknown) Butts % (Auto) (units ( unknown) date) 10.1 unknown) (unknown) (no (unknown) (unknown) Butts % (Auto) (units ( unknown) date) unknown) (unknown) (no (unknown) (unknown) Narrative (units (unkn own) date) unknown) (unknown) (no (unknown) (unknown) Narrative: (units (unk nown) date) unknown) (unknown) (no (unknown) (unknown) Neck: Trachea (units ( unknown) date) midline, supple, unknown) no thyromegaly (unknown) (no (unknown) (unknown) Neurological: (units ( unknown) date) Nonverbal, no unknown) localizing signs (unknown) (no (unknown) (unknown) Neut # (Auto) (units ( unknown) date) 3100 unknown) (unknown) (no (unknown) (unknown) Neut # (Auto) (units ( unknown) date) unknown) (unknown) (no (unknown) (unknown) Neut % (Auto) (units ( unknown) date) 68.7 unknown) (unknown) (no (unknown) (unknown) Neut % (Auto) (units ( unknown) date) unknown) (unknown) (no (unknown) (unknown) Objective (units (unkn own) date) unknown) (unknown) (no (unknown) (unknown) Oxygen Delivery (units (unknown) date) Method Room Air unknown) (unknown) (no (unknown) (unknown) Oxygen Delivery (units (unknown) date) Method unknown) (unknown) (no (unknown) (unknown) Parainfluenza 1 (units (unknown) date) (PCR) Not unknown) detected (unknown) (no (unknown) (unknown) Parainfluenza 1 (units (unknown) date) (PCR) unknown) (unknown) (no (unknown) (unknown) Parainfluenza 2 (units (unknown) date) (PCR) Not unknown) detected (unknown) (no (unknown) (unknown) Parainfluenza 2 (units (unknown) date) (PCR) unknown) (unknown) (no (unknown) (unknown) Parainfluenza 3 (units (unknown) date) (PCR) Not unknown) detected (unknown) (no (unknown) (unknown) Parainfluenza 3 (units (unknown) date) (PCR) unknown) (unknown) (no (unknown) (unknown) Parainfluenza 4 (units (unknown) date) (PCR) Not unknown) detected (unknown) (no (unknown) (unknown) Parainfluenza 4 (units (unknown) date) (PCR) unknown) (unknown) (no (unknown) (unknown) Patient History (units (unknown) date) unknown) (unknown) (no (unknown) (unknown) Patient meets (units ( unknown) date) ICU criteria due unknown) to septic shock. Total time of at least 60 (unknown) (no (unknown) (unknown) Patient: (units (unkno wn) date) Vanessa [place] unknown) Lakshmi MR#: (unknown) (no (unknown) (unknown) Plt Count 155 (units ( unknown) date) unknown) (unknown) (no (unknown) (unknown) Plt Count (units (unkn own) date) unknown) (unknown) (no (unknown) (unknown) Potassium 3.6 (units ( unknown) date) unknown) (unknown) (no (unknown) (unknown) Potassium (units (unkn own) date) unknown) (unknown) (no (unknown) (unknown) Procalcitonin (units ( unknown) date) 1.08 H unknown) (unknown) (no (unknown) (unknown) Procalcitonin (units ( unknown) date) unknown) (unknown) (no (unknown) (unknown) Provider: (units (unkn own) date) Bret Saeed MD unknown) (unknown) (no (unknown) (unknown) Pulse Oximetry (units (unknown) date) 100 100 unknown) (unknown) (no (unknown) (unknown) Pulse Oximetry (units (unknown) date) 100 unknown) (unknown) (no (unknown) (unknown) Pulse Oximetry (units (unknown) date) 96 95 unknown) (unknown) (no (unknown) (unknown) Pulse Oximetry (units (unknown) date) 96 98 unknown) (unknown) (no (unknown) (unknown) Pulse Oximetry (units (unknown) date) 97 97 unknown) (unknown) (no (unknown) (unknown) Pulse Oximetry (units (unknown) date) 97 unknown) (unknown) (no (unknown) (unknown) Pulse Oximetry (units (unknown) date) 98 97 unknown) (unknown) (no (unknown) (unknown) Pulse Oximetry (units (unknown) date) 98 98 unknown) (unknown) (no (unknown) (unknown) Pulse Oximetry (units (unknown) date) 98 99 unknown) (unknown) (no (unknown) (unknown) Pulse Oximetry (units (unknown) date) 98 unknown) (unknown) (no (unknown) (unknown) Pulse Oximetry (units (unknown) date) 99 100 unknown) (unknown) (no (unknown) (unknown) Pulse Oximetry (units (unknown) date) 99 98 unknown) (unknown) (no (unknown) (unknown) Pulse Oximetry (units (unknown) date) 99 99 unknown) (unknown) (no (unknown) (unknown) Pulse Oximetry (units (unknown) date) 99 unknown) (unknown) (no (unknown) (unknown) Pulse Oximetry (units (unknown) date) unknown) (unknown) (no (unknown) (unknown) Pulse Rate 105 H (units (unknown) date) 93 H unknown) (unknown) (no (unknown) (unknown) Pulse Rate 109 H (units (unknown) date) unknown) (unknown) (no (unknown) (unknown) Pulse Rate 110 H (units (unknown) date) 110 H unknown) (unknown) (no (unknown) (unknown) Pulse Rate 111 H (units (unknown) date) 104 H unknown) (unknown) (no (unknown) (unknown) Pulse Rate 112 H (units (unknown) date) unknown) (unknown) (no (unknown) (unknown) Pulse Rate 117 H (units (unknown) date) unknown) (unknown) (no (unknown) (unknown) Pulse Rate 121 H (units (unknown) date) 117 H unknown) (unknown) (no (unknown) (unknown) Pulse Rate 123 H (units (unknown) date) unknown) (unknown) (no (unknown) (unknown) Pulse Rate 63 69 (units (unknown) date) unknown) (unknown) (no (unknown) (unknown) Pulse Rate 64 73 (units (unknown) date) unknown) (unknown) (no (unknown) (unknown) Pulse Rate 67 (units ( unknown) date) unknown) (unknown) (no (unknown) (unknown) Pulse Rate 69 67 (units (unknown) date) unknown) (unknown) (no (unknown) (unknown) Pulse Rate 70 (units ( unknown) date) unknown) (unknown) (no (unknown) (unknown) Pulse Rate 72 68 (units (unknown) date) unknown) (unknown) (no (unknown) (unknown) Pulse Rate 74 83 (units (unknown) date) unknown) (unknown) (no (unknown) (unknown) Pulse Rate 74 (units ( unknown) date) unknown) (unknown) (no (unknown) (unknown) Pulse Rate 77 70 (units (unknown) date) unknown) (unknown) (no (unknown) (unknown) Pulse Rate 77 (units ( unknown) date) unknown) (unknown) (no (unknown) (unknown) Pulse Rate 78 (units ( unknown) date) unknown) (unknown) (no (unknown) (unknown) Pulse Rate 79 91 (units (unknown) date) H unknown) (unknown) (no (unknown) (unknown) Pulse Rate 81 (units ( unknown) date) unknown) (unknown) (no (unknown) (unknown) Pulse Rate 89 80 (units (unknown) date) unknown) (unknown) (no (unknown) (unknown) Pulse Rate 89 (units ( unknown) date) unknown) (unknown) (no (unknown) (unknown) Pulse Rate 90 90 (units (unknown) date) unknown) (unknown) (no (unknown) (unknown) Pulse Rate 95 H (units (unknown) date) unknown) (unknown) (no (unknown) (unknown) Pulse Rate 96 H (units (unknown) date) 102 H unknown) (unknown) (no (unknown) (unknown) Pulse Rate 99 H (units (unknown) date) 100 H unknown) (unknown) (no (unknown) (unknown) Pulse Rate (units (unk nown) date) unknown) (unknown) (no (unknown) (unknown) RBC 3.79 L (units (unk nown) date) unknown) (unknown) (no (unknown) (unknown) RBC (units (unkno wn) date) unknown) (unknown) (no (unknown) (unknown) RDW 14.1 (units (unkno wn) date) unknown) (unknown) (no (unknown) (unknown) RDW (units (unkno wn) date) unknown) (unknown) (no (unknown) (unknown) RSV (PCR) (units (unkn own) date) Negative unknown) (unknown) (no (unknown) (unknown) RSV (PCR) Not (units ( unknown) date) detected unknown) (unknown) (no (unknown) (unknown) RSV (PCR) (units (unkn own) date) unknown) (unknown) (no (unknown) (unknown) Respiratory Rate (units (unknown) date) 16 17 unknown) (unknown) (no (unknown) (unknown) Respiratory Rate (units (unknown) date) 18 32 H unknown) (unknown) (no (unknown) (unknown) Respiratory Rate (units (unknown) date) 20 28 H unknown) (unknown) (no (unknown) (unknown) Respiratory Rate (units (unknown) date) 24 29 H unknown) (unknown) (no (unknown) (unknown) Respiratory Rate (units (unknown) date) 25 H unknown) (unknown) (no (unknown) (unknown) Respiratory Rate (units (unknown) date) 26 H 24 unknown) (unknown) (no (unknown) (unknown) Respiratory Rate (units (unknown) date) 27 H 29 H unknown) (unknown) (no (unknown) (unknown) Respiratory Rate (units (unknown) date) 27 H unknown) (unknown) (no (unknown) (unknown) Respiratory Rate (units (unknown) date) 28 H unknown) (unknown) (no (unknown) (unknown) Respiratory Rate (units (unknown) date) 30 H unknown) (unknown) (no (unknown) (unknown) Respiratory Rate (units (unknown) date) 31 H 26 H unknown) (unknown) (no (unknown) (unknown) Respiratory Rate (units (unknown) date) 31 H unknown) (unknown) (no (unknown) (unknown) Respiratory Rate (units (unknown) date) 33 H 36 H unknown) (unknown) (no (unknown) (unknown) Respiratory Rate (units (unknown) date) 33 H unknown) (unknown) (no (unknown) (unknown) Respiratory Rate (units (unknown) date) 34 H unknown) (unknown) (no (unknown) (unknown) Respiratory Rate (units (unknown) date) 36 H unknown) (unknown) (no (unknown) (unknown) Respiratory Rate (units (unknown) date) 37 H 37 H unknown) (unknown) (no (unknown) (unknown) Respiratory Rate (units (unknown) date) 38 H 32 H unknown) (unknown) (no (unknown) (unknown) Respiratory Rate (units (unknown) date) 46 H 35 H unknown) (unknown) (no (unknown) (unknown) Respiratory Rate (units (unknown) date) unknown) (unknown) (no (unknown) (unknown) Result Diagrams: (units (unknown) date) unknown) (unknown) (no (unknown) (unknown) Review of (units (unkn own) date) Systems unknown) (unknown) (no (unknown) (unknown) SARS-CoV-2 (PCR) (units (unknown) date) Negative unknown) (unknown) (no (unknown) (unknown) SARS-CoV-2 (PCR) (units (unknown) date) Not detected unknown) (unknown) (no (unknown) (unknown) SARS-CoV-2 (PCR) (units (unknown) date) unknown) (unknown) (no (unknown) (unknown) Safety + (units (unkno wn) date) Behavioral: unknown) (unknown) (no (unknown) (unknown) Schizophrenia (units ( unknown) date) unknown) (unknown) (no (unknown) (unknown) Signed (units (unkno wn) date) By:<Electronicall unknown) y signed by Bret Saeed MD> (unknown) (no (unknown) (unknown) Smoking Status (units (unknown) date) Never smoker unknown) (unknown) (no (unknown) (unknown) Sodium 134 L (units (u nknown) date) unknown) (unknown) (no (unknown) (unknown) Sodium (units (unkno wn) date) unknown) (unknown) (no (unknown) (unknown) Substance Use (units ( unknown) date) Type does not use unknown) (unknown) (no (unknown) (unknown) Surrogate (units (unkn own) date) decisionmaker: unknown) Mom (unknown) (no (unknown) (unknown) Temperature (units (un known) date) 100.0 F H 99.9 F unknown) H (unknown) (no (unknown) (unknown) Temperature (units (un known) date) 100.4 F H unknown) (unknown) (no (unknown) (unknown) Temperature (units (un known) date) 100.8 F H unknown) (unknown) (no (unknown) (unknown) Temperature (units (un known) date) 101.1 F H 100.6 F unknown) H (unknown) (no (unknown) (unknown) Temperature (units (un known) date) 101.7 F H 101.3 F unknown) H (unknown) (no (unknown) (unknown) Temperature (units (un known) date) 101.8 F H unknown) (unknown) (no (unknown) (unknown) Temperature 98.4 (units (unknown) date) F unknown) (unknown) (no (unknown) (unknown) Temperature 98.6 (units (unknown) date) F 98.6 F unknown) (unknown) (no (unknown) (unknown) Temperature 98.6 (units (unknown) date) F unknown) (unknown) (no (unknown) (unknown) Temperature 98.8 (units (unknown) date) F unknown) (unknown) (no (unknown) (unknown) Temperature 99.0 (units (unknown) date) F 99.0 F unknown) (unknown) (no (unknown) (unknown) Temperature 99.1 (units (unknown) date) F 99.1 F unknown) (unknown) (no (unknown) (unknown) Temperature 99.1 (units (unknown) date) F unknown) (unknown) (no (unknown) (unknown) Temperature 99.3 (units (unknown) date) F unknown) (unknown) (no (unknown) (unknown) Temperature 99.9 (units (unknown) date) F H 99.7 F H unknown) (unknown) (no (unknown) (unknown) Temperature (units (un known) date) unknown) (unknown) (no (unknown) (unknown) Time Patient (units (u nknown) date) Seen: 15:00 unknown) (unknown) (no (unknown) (unknown) Time Spent With (units (unknown) date) Patient unknown) (unknown) (no (unknown) (unknown) Tobacco + (units (unkn own) date) Substance use: unknown) (unknown) (no (unknown) (unknown) Total Bilirubin (units (unknown) date) 0.5 unknown) (unknown) (no (unknown) (unknown) Total Bilirubin (units (unknown) date) unknown) (unknown) (no (unknown) (unknown) Total Creatine (units (unknown) date) Kinase 825 H unknown) (unknown) (no (unknown) (unknown) Total Creatine (units (unknown) date) Kinase unknown) (unknown) (no (unknown) (unknown) Total Protein (units ( unknown) date) 7.9 unknown) (unknown) (no (unknown) (unknown) Total Protein (units ( unknown) date) unknown) (unknown) (no (unknown) (unknown) Troponin I < (units (u nknown) date) 0.012 unknown) (unknown) (no (unknown) (unknown) Troponin I (units (unk nown) date) unknown) (unknown) (no (unknown) (unknown) Ur Culture (units (unk nown) date) Indicated? Cult unknown) not indicated (unknown) (no (unknown) (unknown) Ur Culture (units (unk nown) date) Indicated? unknown) (unknown) (no (unknown) (unknown) Ur Squamous (units (un known) date) Epith Cells 1-5 unknown) /hpf (unknown) (no (unknown) (unknown) Ur Squamous (units (un known) date) Epith Cells unknown) (unknown) (no (unknown) (unknown) Ur Transition (units ( unknown) date) Epith Cell unknown) 0-1/hpf (unknown) (no (unknown) (unknown) Ur Transition (units ( unknown) date) Epith Cell unknown) (unknown) (no (unknown) (unknown) Urine Bacteria (units (unknown) date) None seen unknown) (unknown) (no (unknown) (unknown) Urine Bacteria (units (unknown) date) unknown) (unknown) (no (unknown) (unknown) Urine (units (unknown) date) Test Negative unknown) (unknown) (no (unknown) (unknown) Urine (units (unknown) date) Test unknown) (unknown) (no (unknown) (unknown) Urine RBC None (units (unknown) date) seen unknown) (unknown) (no (unknown) (unknown) Urine RBC (units (unkn own) date) unknown) (unknown) (no (unknown) (unknown) Urine WBC (units (unkn own) date) 1-5/hpf unknown) (unknown) (no (unknown) (unknown) Urine WBC (units (unkn own) date) unknown) (unknown) (no (unknown) (unknown) Vital Signs (units (un known) date) unknown) (unknown) (no (unknown) (unknown) WBC 4.5 (units (unkno wn) date) unknown) (unknown) (no (unknown) (unknown) WBC (units (unkno wn) date) unknown) (unknown) (no (unknown) (unknown) Zyprexa. 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 She is unknown) no longer on blood thinne and unknown whether IVC (unknown) (no (unknown) (unknown) apixaban 5 mg (units ( unknown) date) tablet (Eliquis) unknown) 5 mg PO BID 08/14/18 03/22/19 History (unknown) (no (unknown) (unknown) back of scalp, (units (unknown) date) paranasal areas, unknown) nape of neck. Also there is some crusting and (unknown) (no (unknown) (unknown) baseline (units (unkno wn) date) secondary to unknown) schizophrenia and history was obtained from mom via (unknown) (no (unknown) (unknown) bedtime and (units (un known) date) increase unknown) fluoxetine from 10 mg to 20 mg daily (unknown) (no (unknown) (unknown) complaining of (units (unknown) date) abdominal pain. unknown) (unknown) (no (unknown) (unknown) days ago. On ED (units (unknown) date) evaluation, unknown) patient was tachypneic, tachycardic and febrile (unknown) (no (unknown) (unknown) drainage from (units ( unknown) date) bilateral unknown) external ear areas. No erythema or tenderness over the (unknown) (no (unknown) (unknown) face areas. She (units (unknown) date) was seen at unknown) [facility] and started on cephalexin about 10 (unknown) (no (unknown) (unknown) filter was (units (unk nown) date) removed. Family unknown) has not noticed patient having a cough, or (unknown) (no (unknown) (unknown) fluoxetine 10 mg (units (unknown) date) capsule 10 mg PO unknown) DAILY #90 caps 08/28/19 Rx (unknown) (no (unknown) (unknown) having (units (unkno wn) date) uncontrollable unknown) behavior in the ER but calm down nicely after given 20 mg (unknown) (no (unknown) (unknown) infiltrate (units (unk nown) date) unknown) (unknown) (no (unknown) (unknown) map of 65. She (units (unknown) date) had right IJ unknown) central line put in while in the ER. EKG showed (unknown) (no (unknown) (unknown) mastoids. No (units (u nknown) date) periorbital or unknown) facial edema. Pupils equal and reactive. (unknown) (no (unknown) (unknown) meets [place] (units (un known) date) criteria then unknown) obtain angio CT (unknown) (no (unknown) (unknown) milliliters/kilo (units (unknown) date) gram for sepsis unknown) protocol, and subsequently dropped her blood (unknown) (no (unknown) (unknown) minutes in (units (unk nown) date) critical care unknown) management. (unknown) (no (unknown) (unknown) mirtazapine (units (un known) date) AdvReac unknown) Intermediate Rash severe Verified 01/30/22 06:52 (unknown) (no (unknown) (unknown) olanzapine 15 mg (units (unknown) date) tablet 15 mg PO unknown) BEDTIME #90 tabs 09/23/20 Rx (unknown) (no (unknown) (unknown) patient not (units (un known) date) currently on unknown) anticoagulant (unknown) (no (unknown) (unknown) pressure to (units (un known) date) 87/55. She then unknown) got started on Levophed, currently on 3 mcg with (unknown) (no (unknown) (unknown) procalcitonin is (units (unknown) date) elevated unknown) (unknown) (no (unknown) (unknown) sinus rhythm (units (u nknown) date) with PACs, normal unknown) intervals. Apparently she was also screaming and (unknown) (no (unknown) (unknown) such as drug (units (u nknown) date) overdose, unknown) serotonin syndrome or acute PE (see below) (unknown) (no (unknown) (unknown) tenderness or (units ( unknown) date) erythema to unknown) suggest mastoiditis, no meningeal signs (unknown) (no (unknown) (unknown) the ED after (units (u nknown) date) standard fluid unknown) resuscitation (unknown) (no (unknown) (unknown) today; this time (units (unknown) date) is exclusive of unknown) procedural time. 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 (units (un known) date) Patient is unknown) reported to have frequent itching/picking on head and (unknown) (no (unknown) (unknown) with temp (units (unkn own) date) 101.8?. Initially unknown) normotensive, got fluid bolus 30 (unknown) (no (unknown) (unknown) x-ray (units (unkno wn) date) unknown) Result panel 460 (unknown) (no date) (unknown) (unknown) (no value) (units (un known) unknown) (unknown) (no date) (unknown) (unknown) No WBC seen (units (u nknown) unknown) (unknown) (no date) (unknown) (unknown) No WBC seen (units (u nknown) unknown) (unknown) (no date) (unknown) (unknown) Scant (units (unkn own) unknown) (unknown) (no date) (unknown) (unknown) Test not (units (unkn own) performed unknown) Result panel 461 (unknown) (no (unknown) (unknown) (no value) (units (unk nown) date) unknown) (unknown) (no (unknown) (unknown) 02/07/22 (units (unkno wn) date) unknown) (unknown) (no (unknown) (unknown) [address] [place] [address] (units (unknown) date) unknown) (unknown) (no (unknown) (unknown) : [id number] (units (u nknown) date) unknown) (unknown) (no (unknown) (unknown) Accession Number: (units (unknown) date) [id number] unknown) (unknown) (no (unknown) (unknown) After the (units (unkn own) date) administration of unknown) intravenous contrast, 2 mm thick sections acquired (unknown) (no (unknown) (unknown) Age/Sex: 31 / F (units (unknown) date) Date of Service: unknown) (unknown) (no (unknown) (unknown) BRIA [place] (units ( unknown) date) [id number] unknown) (unknown) (no (unknown) (unknown) Approved by: (units (u nknown) date) Rajesh Lord M.D. on unknown) 02/07/2022 at 18:22 (unknown) (no (unknown) (unknown) Bones: No acute (units (unknown) date) or suspicious unknown) osseous abnormality. (unknown) (no (unknown) (unknown) COMPARISON: None. (units (unknown) date) unknown) (unknown) (no (unknown) (unknown) CT Scan Report (units (unknown) date) unknown) (unknown) (no (unknown) (unknown) Chest wall and (units (unknown) date) thyroid: Small unknown) breast calcifications are present, indeterminate (unknown) (no (unknown) (unknown) Consider (units (unkno wn) date) unknown) (unknown) (no (unknown) (unknown) : 1990 (units (unknown) date) Acct:[id number] unknown) (unknown) (no (unknown) (unknown) Dictated by: (units (u nknown) date) Rajesh Lord M.D. on unknown) 02/07/2022 at 18:13 (unknown) (no (unknown) (unknown) FINDINGS: (units (unkn own) date) unknown) (unknown) (no (unknown) (unknown) For radiation (units ( unknown) date) dose reduction, unknown) the following was used: automated exposure (unknown) (no (unknown) (unknown) IMPRESSION: No (units (unknown) date) definitely acute unknown) pulmonary embolism. There might be nonacute (unknown) (no (unknown) (unknown) INDICATIONS: r/o (units (unknown) date) p.e unknown) (unknown) (no (unknown) (unknown) Image quality: (units (unknown) date) Slightly motion unknown) degraded (unknown) (no (unknown) (unknown) [facility] (units (unknown) date) unknown) (unknown) (no (unknown) (unknown) Loc: ICU 228-1 (units (unknown) date) unknown) (unknown) (no (unknown) (unknown) Lungs and pleura: (units (unknown) date) Lung volumes are unknown) relatively low. Minimal basilar opacities. (unknown) (no (unknown) (unknown) Mediastinum, (units (u nknown) date) heart, and unknown) esophagus: Distal arteries are not well evaluated due (unknown) (no (unknown) (unknown) Mild basilar (units (u nknown) date) pulmonary airspace unknown) disease and tiny nodules, possibly infectious (unknown) (no (unknown) (unknown) No dense (units (unkno wn) date) unknown) (unknown) (no (unknown) (unknown) Nonspecific (units (un known) date) thickening of the unknown) distal esophagus, not well evaluated on this (unknown) (no (unknown) (unknown) Ordering (units (unkno wn) date) Provider: unknown) Bret Saeed MD (unknown) (no (unknown) (unknown) Other findings as (units (unknown) date) above. unknown) (unknown) (no (unknown) (unknown) PROCEDURE: CT (units ( unknown) date) ANGIO CHEST PE unknown) PROTOCOL (unknown) (no (unknown) (unknown) Patient: (units (unkno wn) date) Vanessa Mills unknown) B MR# (unknown) (no (unknown) (unknown) Procedure: CT (units ( unknown) date) angio chest PE unknown) protocol (unknown) (no (unknown) (unknown) Prominent (units (unkn own) date) axillary and unknown) supraclavicular lymph nodes of uncertain etiology. (unknown) (no (unknown) (unknown) Prominent (units (unkn own) date) supraclavicular unknown) and axillary lymph nodes, partially seen, of (unknown) (no (unknown) (unknown) Signed (units (unkno wn) date) unknown) (unknown) (no (unknown) (unknown) TECHNIQUE: (units (unk nown) date) unknown) (unknown) (no (unknown) (unknown) Upper abdomen: No (units (unknown) date) gross abnormality unknown) identified in the upper abdomen, limited (unknown) (no (unknown) (unknown) adjustment of mA (units (unknown) date) and/or kV unknown) according to patient size. (unknown) (no (unknown) (unknown) aortic dissection (units (unknown) date) is identified. A unknown) right central line is seen terminating at (unknown) (no (unknown) (unknown) arteries (units (unkno wn) date) unknown) (unknown) (no (unknown) (unknown) cavoatrial (units (unk nown) date) junction. No unknown) pathologic adenopathy by size criteria. (unknown) (no (unknown) (unknown) consolidation or (units (unknown) date) pleural effusion. unknown) Small nodules are seen on maximum intensity (unknown) (no (unknown) (unknown) control, (units (unkno wn) date) unknown) (unknown) (no (unknown) (unknown) defect in (units (unkn own) date) unknown) (unknown) (no (unknown) (unknown) eccentric (units (unkn own) date) unknown) (unknown) (no (unknown) (unknown) etiology. (units (unkn own) date) unknown) (unknown) (no (unknown) (unknown) evaluation (units (unk nown) date) unknown) (unknown) (no (unknown) (unknown) filling defect in (units (unknown) date) the right middle unknown) lobe pulmonary artery. Evaluation of distal (unknown) (no (unknown) (unknown) from the (units (unkno wn) date) unknown) (unknown) (no (unknown) (unknown) future imaging (units (unknown) date) surveillance to unknown) assess for resolution. (unknown) (no (unknown) (unknown) inflammatory. (units ( unknown) date) Fleischner unknown) follow-up criteria do not apply for this demographic. (unknown) (no (unknown) (unknown) intensity (units (unkn own) date) unknown) (unknown) (no (unknown) (unknown) is degraded by (units (unknown) date) motion. unknown) (unknown) (no (unknown) (unknown) motion artifact, (units (unknown) date) particularly in unknown) the bases. There is a small eccentric filling (unknown) (no (unknown) (unknown) on CT. (units (unkno wn) date) unknown) (unknown) (no (unknown) (unknown) on this arterial (units (unknown) date) phase study. unknown) (unknown) (no (unknown) (unknown) or (units (unkno wn) date) unknown) (unknown) (no (unknown) (unknown) projection (MIP) (units (unknown) date) coronal and unknown) sagittal reformats were then acquired through the (unknown) (no (unknown) (unknown) projection (units (unk nown) date) images, for unknown) example in the right (unknown) (no (unknown) (unknown) pulmonary apices (units (unknown) date) to the posterior unknown) costophrenic angles. 3-dimensional maximum (unknown) (no (unknown) (unknown) study. No (units (unkn own) date) unknown) (unknown) (no (unknown) (unknown) the right middle (units (unknown) date) lobe (). unknown) (unknown) (no (unknown) (unknown) the (units (unkno wn) date) unknown) (unknown) (no (unknown) (unknown) thorax. (units (unkno wn) date) unknown) (unknown) (no (unknown) (unknown) to some (units (unkno wn) date) unknown) (unknown) (no (unknown) (unknown) uncertain (units (unkn own) date) unknown) Result panel 462 (unknown) (no (unknown) (unknown) (no value) (units (unk nown) date) unknown) (unknown) (no (unknown) (unknown) 08:22 08:22 08:22 (units (unknown) date) unknown) (unknown) (no (unknown) (unknown) 08:27 08:27 08:27 (units (unknown) date) unknown) (unknown) (no (unknown) (unknown) 08:27 08:42 09:20 (units (unknown) date) unknown) (unknown) (no (unknown) (unknown) 09:20 (units (unkno wn) date) unknown) (unknown) (no (unknown) (unknown) 11:30 02/07/22 (units (unknown) date) unknown) (unknown) (no (unknown) (unknown) 11:30 (units (unkno wn) date) unknown) (unknown) (no (unknown) (unknown) 02/07/22 08:27 (units (unknown) date) unknown) (unknown) (no (unknown) (unknown) 02/07/22 11:22 (units (unknown) date) unknown) (unknown) (no (unknown) (unknown) 02/07/22 11:24 (units (unknown) date) unknown) (unknown) (no (unknown) (unknown) 02/07/22 02/07/22 (units (unknown) date) 02/07/22 unknown) Range/Units (unknown) (no (unknown) (unknown) 02/07/22 12:00 (units (unknown) date) unknown) (unknown) (no (unknown) (unknown) 02/07/22 (units (unkno wn) date) Range/Units unknown) (unknown) (no (unknown) (unknown) 02/07/22 (units (unkno wn) date) unknown) (unknown) (no (unknown) (unknown) 02/08/22 05:00 (units (unknown) date) unknown) (unknown) (no (unknown) (unknown) 02/09/22 05:00 (units (unknown) date) unknown) (unknown) (no (unknown) (unknown) 02/10/22 05:00 (units (unknown) date) unknown) (unknown) (no (unknown) (unknown) ABDOMEN: Soft, (units (unknown) date) nontender. unknown) Normoactive bowel sounds all 4 quadrants. No (unknown) (no (unknown) (unknown) ALT (<35) IU/L (units (unknown) date) unknown) (unknown) (no (unknown) (unknown) ALT 33 (<35) IU/L (units (unknown) date) unknown) (unknown) (no (unknown) (unknown) AST (14-36) IU/L (units (unknown) date) unknown) (unknown) (no (unknown) (unknown) AST 87 H (14-36) (units (unknown) date) IU/L unknown) (unknown) (no (unknown) (unknown) Acetaminophen (units ( unknown) date) (Acetaminophen 325 unknown) Mg Tablet) 650 mg PO Q6H PRN (unknown) (no (unknown) (unknown) Acetaminophen (units ( unknown) date) (Acetaminophen 325 unknown) Mg Tablet) 975 mg PO NOW ONE (unknown) (no (unknown) (unknown) Admin: 02/07/22 (units (unknown) date) 09:00 Dose: 1,000 unknown) mls/hr (unknown) (no (unknown) (unknown) Admin: 02/07/22 (units (unknown) date) 09:08 Dose: 200 unknown) mls/hr (unknown) (no (unknown) (unknown) Admin: 02/07/22 (units (unknown) date) 09:51 Dose: 150 unknown) mls/hr (unknown) (no (unknown) (unknown) Admin: 02/07/22 (units (unknown) date) 10:34 Dose: 382 unknown) mls/hr (unknown) (no (unknown) (unknown) Admin: 02/07/22 (units (unknown) date) 12:59 Dose: 2 unknown) mcg/min, 7.5 mls/hr (unknown) (no (unknown) (unknown) Admin: 02/07/22 (units (unknown) date) 13:11 Dose: 200 unknown) mls/hr (unknown) (no (unknown) (unknown) Admin: 02/07/22 (units (unknown) date) 16:26 Dose: 250 unknown) mls/hr (unknown) (no (unknown) (unknown) Admit Date/Time: (units (unknown) date) 02/07/22 11:54 unknown) (unknown) (no (unknown) (unknown) Admit Provider: (units (unknown) date) Yaakov Costa unknown) (unknown) (no (unknown) (unknown) Age/Sex: 31 / F (units (unknown) date) unknown) (unknown) (no (unknown) (unknown) Albumin (3.5-5.0) (units (unknown) date) g/dL unknown) (unknown) (no (unknown) (unknown) Albumin 3.6 (units (un known) date) (3.5-5.0) g/dL unknown) (unknown) (no (unknown) (unknown) Albumin/Globulin (units (unknown) date) Ratio (1.0-2.8) unknown) (unknown) (no (unknown) (unknown) Albumin/Globulin (units (unknown) date) Ratio 0.8 L unknown) (1.0-2.8) (unknown) (no (unknown) (unknown) Alkaline (units (unkno wn) date) Phosphatase unknown) (38-126) U/L (unknown) (no (unknown) (unknown) Alkaline (units (unkno wn) date) Phosphatase 46 unknown) (38-126) U/L (unknown) (no (unknown) (unknown) Allergies (units (unkn own) date) unknown) (unknown) (no (unknown) (unknown) Allergy/AdvReac (units (unknown) date) Type Severity unknown) Reaction Status Date / Time (unknown) (no (unknown) (unknown) Aripiprazole (units (u nknown) date) (Aripiprazole 10 unknown) Mg Tablet) 10 mg PO DAILY EVERARDO (unknown) (no (unknown) (unknown) Azithromycin 500 (units (unknown) date) mg/ Dextrose 250 unknown) mls @ 250 mls/hr IV Q24H EVERARDO (unknown) (no (unknown) (unknown) BMP [Basic (units (unk nown) date) Metabolic Panel] unknown) DAILY (unknown) (no (unknown) (unknown) BUN (7-17) mg/dL (units (unknown) date) unknown) (unknown) (no (unknown) (unknown) BUN 14 (7-17) (units ( unknown) date) mg/dL unknown) (unknown) (no (unknown) (unknown) BUN/Creatinine (units (unknown) date) Ratio (6-22) unknown) (unknown) (no (unknown) (unknown) BUN/Creatinine (units (unknown) date) Ratio 21.9 (6-22) unknown) (unknown) (no (unknown) (unknown) Baso # (Auto) (units ( unknown) date) (0-100) /uL unknown) (unknown) (no (unknown) (unknown) Baso # (Auto) 0 (units (unknown) date) (0-100) /uL unknown) (unknown) (no (unknown) (unknown) Baso % (Auto) (units ( unknown) date) (0-2) % unknown) (unknown) (no (unknown) (unknown) Baso % (Auto) 0.5 (units (unknown) date) (0-2) % unknown) (unknown) (no (unknown) (unknown) Bedside Urine (units ( unknown) date) Bilirubin - unknown) Negative (unknown) (no (unknown) (unknown) Bedside Urine (units ( unknown) date) Glucose Negative unknown) (unknown) (no (unknown) (unknown) Bedside Urine (units ( unknown) date) Ketone - Negative unknown) (unknown) (no (unknown) (unknown) Bedside Urine (units ( unknown) date) Leukocytes - unknown) Negative (unknown) (no (unknown) (unknown) Bedside Urine (units ( unknown) date) Nitrite - Negative unknown) (unknown) (no (unknown) (unknown) Bedside Urine (units ( unknown) date) Occult Blood - unknown) Negative (unknown) (no (unknown) (unknown) Bedside Urine (units ( unknown) date) Protein + 30 unknown) (unknown) (no (unknown) (unknown) Bedside Urine (units ( unknown) date) Urobilinogen - unknown) Negative (unknown) (no (unknown) (unknown) Bedside Urine pH (units (unknown) date) 6 unknown) (unknown) (no (unknown) (unknown) Blood Pressure (units (unknown) date) 100/57 L 02/07/22 unknown) 08:10 (unknown) (no (unknown) (unknown) Blood Pressure (units (unknown) date) 100/62 unknown) (unknown) (no (unknown) (unknown) CARDIOVASCULAR: (units (unknown) date) Regular rate and unknown) rhythm without murmurs, rubs or gallops. (unknown) (no (unknown) (unknown) CBC Auto Diff (units ( unknown) date) [Complete Blood unknown) Count AUTO DIFF] DAILY (unknown) (no (unknown) (unknown) CK-MB (CK-2) (units (u nknown) date) (<2.37) ng/mL unknown) (unknown) (no (unknown) (unknown) CK-MB (CK-2) 2.02 (units (unknown) date) (<2.37) ng/mL unknown) (unknown) (no (unknown) (unknown) CK-MB (CK-2) Rel (units (unknown) date) Index (1.5-5.0) % unknown) (unknown) (no (unknown) (unknown) CK-MB (CK-2) Rel (units (unknown) date) Index 0.2 L unknown) (1.5-5.0) % (unknown) (no (unknown) (unknown) Calcium (units (unkno wn) date) (8.4-10.2) mg/dL unknown) (unknown) (no (unknown) (unknown) Calcium 8.3 L (units ( unknown) date) (8.4-10.2) mg/dL unknown) (unknown) (no (unknown) (unknown) Carbon Dioxide (units (unknown) date) (22-32) mmol/L unknown) (unknown) (no (unknown) (unknown) Carbon Dioxide 23 (units (unknown) date) (22-32) mmol/L unknown) (unknown) (no (unknown) (unknown) Ceftriaxone (units (un known) date) Sodium 1,000 mg/ unknown) (Sodium Chloride) 100 mls @ 200 mls/hr IV Q24H EVERARDO (unknown) (no (unknown) (unknown) Ceftriaxone (units (un known) date) Sodium 2,000 mg/ unknown) (Sodium Chloride) 100 mls @ 200 mls/hr IV NOW ONE (unknown) (no (unknown) (unknown) Chief Complaint: (units (unknown) date) Altered Mental unknown) Status (unknown) (no (unknown) (unknown) Chloride (98-107) (units (unknown) date) mmol/L unknown) (unknown) (no (unknown) (unknown) Chloride 99 (units (un known) date) (98-107) mmol/L unknown) (unknown) (no (unknown) (unknown) Consult to (units (unk nown) date) Dietitian, Adult unknown) Routine (unknown) (no (unknown) (unknown) Consult to (units (unk nown) date) Discharge Planning unknown) Routine (unknown) (no (unknown) (unknown) Consult to Wound (units (unknown) date) Care Stat unknown) (unknown) (no (unknown) (unknown) Course (units (unkno wn) date) unknown) (unknown) (no (unknown) (unknown) Creatinine (units (unk nown) date) (0.52-1.04) mg/dL unknown) (unknown) (no (unknown) (unknown) Creatinine 0.64 (units (unknown) date) (0.52-1.04) mg/dL unknown) (unknown) (no (unknown) (unknown) D-Dimer (<500) (units (unknown) date) ng/ml unknown) (unknown) (no (unknown) (unknown) D-Dimer 2351 H (units (unknown) date) (<500) ng/ml unknown) (unknown) (no (unknown) (unknown) : 1990 (units (unknown) date) Acct:[id number] unknown) (unknown) (no (unknown) (unknown) Date of Service: (units (unknown) date) 02/07/22 unknown) (unknown) (no (unknown) (unknown) Departure (units (unkn own) date) unknown) (unknown) (no (unknown) (unknown) Discharge Plan (units (unknown) date) unknown) (unknown) (no (unknown) (unknown) Discontinued (units (u nknown) date) Medications unknown) (unknown) (no (unknown) (unknown) Documented By: (units (unknown) date) HANNY unknown) (unknown) (no (unknown) (unknown) Documented By: KM (units (unknown) date) unknown) (unknown) (no (unknown) (unknown) ED Orders (units (unkn own) date) unknown) (unknown) (no (unknown) (unknown) ER Physician: (units ( unknown) date) Amelia Unger unknown) D.O. (unknown) (no (unknown) (unknown) EXTREMITIES: (units (u nknown) date) Normal range of unknown) motion, no clubbing or edema. Neurovascularly (unknown) (no (unknown) (unknown) Emergency Report (units (unknown) date) unknown) (unknown) (no (unknown) (unknown) Enoxaparin Sodium (units (unknown) date) (Enoxaparin 40 unknown) Mg/0.4 Ml Syringe) 40 mg SUBCUT DAILY EVERARDO (unknown) (no (unknown) (unknown) Eos # (Auto) (units (u nknown) date) (0-450) /uL unknown) (unknown) (no (unknown) (unknown) Eos # (Auto) 0 (units (unknown) date) (0-450) /uL unknown) (unknown) (no (unknown) (unknown) Eos % (Auto) (units (u nknown) date) (2-4) % unknown) (unknown) (no (unknown) (unknown) Eos % (Auto) 0.0 (units (unknown) date) L (2-4) % unknown) (unknown) (no (unknown) (unknown) Esterase (units (unkno wn) date) unknown) (unknown) (no (unknown) (unknown) Estimated GFR > (units (unknown) date) 60 (>60) mL/min unknown) (unknown) (no (unknown) (unknown) Estimated GFR (units ( unknown) date) (>60) mL/min unknown) (unknown) (no (unknown) (unknown) Exam (units (unkno wn) date) unknown) (unknown) (no (unknown) (unknown) Fluoxetine HCl (units (unknown) date) (Fluoxetine 10 Mg unknown) Capsule) 20 mg PO DAILY EVERARDO (unknown) (no (unknown) (unknown) GENERAL: Thin (units ( unknown) date) 31-year-old female unknown) (unknown) (no (unknown) (unknown) : Incontinent (units (unknown) date) of urine unknown) (unknown) (no (unknown) (unknown) General (units (unkno wn) date) unknown) (unknown) (no (unknown) (unknown) Globulin (units (unkno wn) date) (1.7-4.1) g/dL unknown) (unknown) (no (unknown) (unknown) Globulin 4.3 H (units (unknown) date) (1.7-4.1) g/dL unknown) (unknown) (no (unknown) (unknown) Glucose (70-100) (units (unknown) date) mg/dL unknown) (unknown) (no (unknown) (unknown) Glucose 113 H (units ( unknown) date) (70-100) mg/dL unknown) (unknown) (no (unknown) (unknown) HEENT: Head (units (un known) date) atraumatic,EOMI, unknown) pupils reactive, multiple face scratches mostly on (unknown) (no (unknown) (unknown) HPI - Fever (units (un known) date) unknown) (unknown) (no (unknown) (unknown) HPI Narrative: (units (unknown) date) unknown) (unknown) (no (unknown) (unknown) Haloperidol (units (un known) date) (Haloperidol 5 unknown) Mg/Ml Vial) 5 mg IV Q4HR PRN (unknown) (no (unknown) (unknown) Hct (36-46) % (units ( unknown) date) unknown) (unknown) (no (unknown) (unknown) Hct 32.5 L (units (unk nown) date) (36-46) % unknown) (unknown) (no (unknown) (unknown) Hgb (12.0-16.0) (units (unknown) date) g/dL unknown) (unknown) (no (unknown) (unknown) Hgb 10.9 L (units (unk nown) date) (12.0-16.0) g/dL unknown) (unknown) (no (unknown) (unknown) 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) (unknown) (no (unknown) (unknown) History of (units (unk nown) date) Present Illness unknown) (unknown) (no (unknown) (unknown) History of (units (unk nown) date) pulmonary embolism unknown) (unknown) (no (unknown) (unknown) IV NOW ONE (units (unk nown) date) unknown) (unknown) (no (unknown) (unknown) IV Q8H EV[facility]ARDO (units (unk nown) date) unknown) (unknown) (no (unknown) (unknown) Influenza A (units (un known) date) (RT-PCR) unknown) (NEGATIVE) (unknown) (no (unknown) (unknown) Influenza A (units (un known) date) (RT-PCR) Flu a unknown) negative (NEGATIVE) (unknown) (no (unknown) (unknown) Influenza B (units (un known) date) (RT-PCR) unknown) (NEGATIVE) (unknown) (no (unknown) (unknown) Influenza B (units (un known) date) (RT-PCR) Flu b unknown) negative (NEGATIVE) (unknown) (no (unknown) (unknown) Influenza Virus (units (unknown) date) Vaccine (Influenza unknown) Vaccine Qiv 0.5 Ml Syringe) 0.5 ml IM .ONCE (unknown) (no (unknown) (unknown) Initial Vital (units ( unknown) date) Signs unknown) (unknown) (no (unknown) (unknown) Initial Vital (units ( unknown) date) Signs: unknown) (unknown) (no (unknown) (unknown) [facility] (units (unknown) date) [address] unknown) [place] [address] (unknown) (no (unknown) (unknown) Ketorolac (units (unkn own) date) Tromethamine unknown) (Ketorolac 30 Mg/Ml Vial) 15 mg IV NOW ONE (unknown) (no (unknown) (unknown) Lab Data (units (unkno wn) date) unknown) (unknown) (no (unknown) (unknown) Lab Results (units (un known) date) unknown) (unknown) (no (unknown) (unknown) Labs: (units (unkno wn) date) unknown) (unknown) (no (unknown) (unknown) Lactate (0.7-2.1) (units (unknown) date) mmol/L unknown) (unknown) (no (unknown) (unknown) Lactate 1.6 (units (un known) date) (0.7-2.1) mmol/L unknown) (unknown) (no (unknown) (unknown) Last Admin: (units (un known) date) 02/07/22 09:07 unknown) Dose: 15 mg (unknown) (no (unknown) (unknown) Last Admin: (units (un known) date) 02/07/22 11:11 unknown) Dose: 20 mg (unknown) (no (unknown) (unknown) Last Admin: (units (un known) date) 02/07/22 11:11 unknown) Dose: 975 mg (unknown) (no (unknown) (unknown) Last Admin: (units (un known) date) 02/07/22 15:53 unknown) Dose: Not Given (unknown) (no (unknown) (unknown) Last Admin: (units (un known) date) 02/07/22 17:26 unknown) Dose: Not Given (unknown) (no (unknown) (unknown) Last Admin: (units (un known) date) 02/07/22 18:15 unknown) Dose: Not Given (unknown) (no (unknown) (unknown) Last Admin: (units (un known) date) 02/07/22 18:30 unknown) Dose: 150 mls/hr (unknown) (no (unknown) (unknown) Last Infusion: (units (unknown) date) 02/07/22 09:57 unknown) Dose: 0 mls/hr (unknown) (no (unknown) (unknown) Last Infusion: (units (unknown) date) 02/07/22 11:17 unknown) Dose: 0 mls/hr (unknown) (no (unknown) (unknown) Last Infusion: (units (unknown) date) 02/07/22 13:16 unknown) Dose: 0 mls/hr (unknown) (no (unknown) (unknown) Last Infusion: (units (unknown) date) 02/07/22 15:53 unknown) Dose: 0 mls/hr (unknown) (no (unknown) (unknown) Last Infusion: (units (unknown) date) 02/07/22 17:27 unknown) Dose: 0 mls/hr (unknown) (no (unknown) (unknown) Last Titration: (units (unknown) date) 02/07/22 13:24 unknown) Dose: 3 mcg/min, 11.25 mls/hr (unknown) (no (unknown) (unknown) Lymph # (Auto) (units (unknown) date) (9308-8014) /uL unknown) (unknown) (no (unknown) (unknown) Lymph # (Auto) (units (unknown) date) 900 L (8186-3687) unknown) /uL (unknown) (no (unknown) (unknown) Lymph % (Auto) (units (unknown) date) (25-40) % unknown) (unknown) (no (unknown) (unknown) Lymph % (Auto) (units (unknown) date) 20.7 L (25-40) % unknown) (unknown) (no (unknown) (unknown) [id number] (units (unk nown) date) unknown) (unknown) (no (unknown) (unknown) MCH (26-34) PG (units (unknown) date) unknown) (unknown) (no (unknown) (unknown) MCH 28.7 (26-34) (units (unknown) date) PG unknown) (unknown) (no (unknown) (unknown) MCHC (30-36) % (units (unknown) date) unknown) (unknown) (no (unknown) (unknown) MCHC 33.5 (30-36) (units (unknown) date) % unknown) (unknown) (no (unknown) (unknown) MCV (80-100) fL (units (unknown) date) unknown) (unknown) (no (unknown) (unknown) MCV 85.7 (80-100) (units (unknown) date) fL unknown) (unknown) (no (unknown) (unknown) MDM - Fever (units (un known) date) unknown) (unknown) (no (unknown) (unknown) Magnesium (units (unkn own) date) (1.6-2.3) mg/dL unknown) (unknown) (no (unknown) (unknown) Magnesium 2.1 (units ( unknown) date) (1.6-2.3) mg/dL unknown) (unknown) (no (unknown) (unknown) Medical History (units (unknown) date) (Updated 02/07/22 unknown) @ 15:57 by Bret Saeed MD) (unknown) (no (unknown) (unknown) Medication (units (unk nown) date) Instructions unknown) Recorded (unknown) (no (unknown) (unknown) Melatonin (units (unkn own) date) (Melatonin 3 Mg unknown) Tablet) 6 mg PO BEDTIME PRN (unknown) (no (unknown) (unknown) Mode of arrival: (units (unknown) date) Wheelchair unknown) (unknown) (no (unknown) (unknown) Butts # (Auto) (units ( unknown) date) (0-900) /uL unknown) (unknown) (no (unknown) (unknown) Butts # (Auto) 500 (units (unknown) date) (0-900) /uL unknown) (unknown) (no (unknown) (unknown) Butts % (Auto) (units ( unknown) date) (3-14) % unknown) (unknown) (no (unknown) (unknown) Butts % (Auto) (units ( unknown) date) 10.1 (3-14) % unknown) (unknown) (no (unknown) (unknown) NEUROLOGICAL: (units ( unknown) date) Moving all unknown) extremities (unknown) (no (unknown) (unknown) NOREPINEPHRINE (units (unknown) date) BITARTRATE/D5W unknown) (Levophed) 4 mg in 250 mls @ 30 mls/hr IV TITRATE (unknown) (no (unknown) (unknown) Naloxone HCl (units (u nknown) date) (Naloxone 0.4 unknown) Mg/Ml Vial) 0.2 mg IV Q2MIN PRN (unknown) (no (unknown) (unknown) Neut # (Auto) (units ( unknown) date) (8898-2755) /uL unknown) (unknown) (no (unknown) (unknown) Neut # (Auto) (units ( unknown) date) 3100 (1498-9998) unknown) /uL (unknown) (no (unknown) (unknown) Neut % (Auto) (units ( unknown) date) (50-75) % unknown) (unknown) (no (unknown) (unknown) Neut % (Auto) (units ( unknown) date) 68.7 (50-75) % unknown) (unknown) (no (unknown) (unknown) ONE (units (unkno wn) date) unknown) (unknown) (no (unknown) (unknown) Olanzapine (units (unk nown) date) (Olanzapine 2.5 Mg unknown) Tablet) 5 mg PO BEDTIME EVERARDO (unknown) (no (unknown) (unknown) Olanzapine (units (unk nown) date) (Olanzapine Odt 10 unknown) Mg Tab) 20 mg PO BEDTIME EVERARDO (unknown) (no (unknown) (unknown) Olanzapine (units (unk nown) date) (Olanzapine Odt 10 unknown) Mg Tab) 20 mg PO NOW ONE (unknown) (no (unknown) (unknown) Ordered: (units (unkno wn) date) unknown) (unknown) (no (unknown) (unknown) Orders (units (unkno wn) date) unknown) (unknown) (no (unknown) (unknown) Oxygen Delivery (units (unknown) date) Method 02/07/22 unknown) 08:10 (unknown) (no (unknown) (unknown) PRN Reason: (units (un known) date) Agitation unknown) (unknown) (no (unknown) (unknown) PRN Reason: (units (un known) date) Constipation unknown) (unknown) (no (unknown) (unknown) PRN Reason: (units (un known) date) Fever/Mild Pain unknown) (1-3) (unknown) (no (unknown) (unknown) PRN Reason: (units (un known) date) Insomnia unknown) (unknown) (no (unknown) (unknown) PRN Reason: (units (un known) date) Opiate Reversal unknown) (unknown) (no (unknown) (unknown) PRN (units (unkno wn) date) unknown) (unknown) (no (unknown) (unknown) Patient History (units (unknown) date) unknown) (unknown) (no (unknown) (unknown) Patient is a (units (u nknown) date) 31-year-old female unknown) history of schizophrenia language barrier (unknown) (no (unknown) (unknown) Patient: (units (unkno wn) date) [place]essa [place] unknown) B MR#: (unknown) (no (unknown) (unknown) Piperacillin (units (u nknown) date) Sod/Tazobactam unknown) (Sod 3.375 gm/ Sodium Chloride) 100 mls @ 25 mls/hr (unknown) (no (unknown) (unknown) Piperacillin (units (u nknown) date) Sod/Tazobactam unknown) (Sod 4.5 gm/ Sodium Chloride) 100 mls @ 200 mls/hr (unknown) (no (unknown) (unknown) Piperacillin (units (u nknown) date) Sod/Tazobactam unknown) (Sod 4.5 gm/ Sodium Chloride) 100 mls @ 25 mls/hr (unknown) (no (unknown) (unknown) Plt Count (units (unkn own) date) (150-400) X103/uL unknown) (unknown) (no (unknown) (unknown) Plt Count 155 (units ( unknown) date) (150-400) X103/uL unknown) (unknown) (no (unknown) (unknown) Point of Care (units ( unknown) date) Testing unknown) (unknown) (no (unknown) (unknown) Polyethylene (units (u nknown) date) Glycol unknown) (Polyethylene Glycol 3350 17 Gm Powd.Pack) 17 gm PO DAILY (unknown) (no (unknown) (unknown) Potassium (units (unkn own) date) (3.4-5.1) mmol/L unknown) (unknown) (no (unknown) (unknown) Potassium 3.6 (units ( unknown) date) (3.4-5.1) mmol/L unknown) (unknown) (no (unknown) (unknown) Test (units (unknown) date) Results Negative unknown) (unknown) (no (unknown) (unknown) Previous Rx's (units ( unknown) date) unknown) (unknown) (no (unknown) (unknown) Procalcitonin (units ( unknown) date) (<0.5) ng/mL unknown) (unknown) (no (unknown) (unknown) Procalcitonin (units ( unknown) date) 1.08 H (<0.5) unknown) ng/mL (unknown) (no (unknown) (unknown) Procalcitonin (units ( unknown) date) Urgent unknown) (unknown) (no (unknown) (unknown) Pulse Oximetry 97 (units (unknown) date) 02/07/22 08:10 unknown) (unknown) (no (unknown) (unknown) Pulse Oximetry 98 (units (unknown) date) unknown) (unknown) (no (unknown) (unknown) Pulse Rate 121 H (units (unknown) date) 02/07/22 08:10 unknown) (unknown) (no (unknown) (unknown) Pulse Rate 93 H (units (unknown) date) unknown) (unknown) (no (unknown) (unknown) RBC (4.0-5.2) (units ( unknown) date) X106/uL unknown) (unknown) (no (unknown) (unknown) RBC 3.79 L (units (unk nown) date) (4.0-5.2) X106/uL unknown) (unknown) (no (unknown) (unknown) RDW (11.6-14.8) % (units (unknown) date) unknown) (unknown) (no (unknown) (unknown) RDW 14.1 (units (unkno wn) date) (11.6-14.8) % unknown) (unknown) (no (unknown) (unknown) RESPIRATORY: (units (u nknown) date) Breath sounds unknown) equal bilaterally, no wheezes rales or rhonchi. (unknown) (no (unknown) (unknown) ROS Unobtainable: (units (unknown) date) All systems unknown) reviewed + are unremarkable except as noted in HPI (unknown) (no (unknown) (unknown) RSV (PCR) (units (unkn own) date) (Negative) unknown) (unknown) (no (unknown) (unknown) RSV (PCR) (units (unkn own) date) Negative unknown) (Negative) (unknown) (no (unknown) (unknown) Related Data (units (u nknown) date) unknown) (unknown) (no (unknown) (unknown) Respiratory Panel (units (unknown) date) (Film Array) Stat unknown) (unknown) (no (unknown) (unknown) Respiratory Rate (units (unknown) date) 32 H unknown) (unknown) (no (unknown) (unknown) Respiratory Rate (units (unknown) date) 33 H 02/07/22 unknown) 08:10 (unknown) (no (unknown) (unknown) Result diagrams: (units (unknown) date) unknown) (unknown) (no (unknown) (unknown) Review of Systems (units (unknown) date) unknown) (unknown) (no (unknown) (unknown) SARS-CoV-2 (PCR) (units (unknown) date) (Negative) unknown) (unknown) (no (unknown) (unknown) SARS-CoV-2 (PCR) (units (unknown) date) Negative unknown) (Negative) (unknown) (no (unknown) (unknown) EVERARDO; Protocol (units ( unknown) date) unknown) (unknown) (no (unknown) (unknown) SKIN: Severe (units (u nknown) date) scalp abrasions unknown) not growing hair mild drainage erythema facial (unknown) (no (unknown) (unknown) Schizophrenia (units ( unknown) date) unknown) (unknown) (no (unknown) (unknown) Sennosides (units (unk nown) date) (Sennosides 8.6 Mg unknown) Tablet) 8.6 mg PO BID PRN (unknown) (no (unknown) (unknown) Signed By: (units (unk n) date) unknown) (unknown) (no (unknown) (unknown) Smoking Status: (units (unknown) date) Never smoker unknown) (unknown) (no (unknown) (unknown) Social History (units (unknown) date) unknown) (unknown) (no (unknown) (unknown) Sodium (137-145) (units (unknown) date) mmol/L unknown) (unknown) (no (unknown) (unknown) Sodium 134 L (units (u nknown) date) (137-145) mmol/L unknown) (unknown) (no (unknown) (unknown) Sodium Chloride (units (unknown) date) (Normal Saline unknown) 0.9%) 1,000 mls @ 1,000 mls/hr IV BOLUS ONE (unknown) (no (unknown) (unknown) Sodium Chloride (units (unknown) date) (Normal Saline unknown) 0.9%) 1,146 mls @ 382 mls/hr 30 ml/kg infuse (unknown) (no (unknown) (unknown) Source: patient (units (unknown) date) unknown) (unknown) (no (unknown) (unknown) Stated Complaint: (units (unknown) date) she has wounds on unknown) head, not eating, mucas in nose (unknown) (no (unknown) (unknown) Stop: 02/07/22 (units (unknown) date) 08:48 unknown) (unknown) (no (unknown) (unknown) Stop: 02/07/22 (units (unknown) date) 08:50 unknown) (unknown) (no (unknown) (unknown) Stop: 02/07/22 (units (unknown) date) 09:44 unknown) (unknown) (no (unknown) (unknown) Stop: 02/07/22 (units (unknown) date) 09:48 unknown) (unknown) (no (unknown) (unknown) Stop: 02/07/22 (units (unknown) date) 11:06 unknown) (unknown) (no (unknown) (unknown) Stop: 02/07/22 (units (unknown) date) 11:07 unknown) (unknown) (no (unknown) (unknown) Stop: 02/07/22 (units (unknown) date) 11:16 unknown) (unknown) (no (unknown) (unknown) Stop: 02/07/22 (units (unknown) date) 12:56 unknown) (unknown) (no (unknown) (unknown) Stop: 02/07/22 (units (unknown) date) 13:07 unknown) (unknown) (no (unknown) (unknown) Stop: 02/07/22 (units (unknown) date) 15:39 unknown) (unknown) (no (unknown) (unknown) Stop: 02/08/22 (units (unknown) date) 09:31 unknown) (unknown) (no (unknown) (unknown) Stop: 02/08/22 (units (unknown) date) 12:01 unknown) (unknown) (no (unknown) (unknown) Stop: 02/09/22 (units (unknown) date) 18:57 unknown) (unknown) (no (unknown) (unknown) Stop: 02/11/22 (units (unknown) date) 08:59 unknown) (unknown) (no (unknown) (unknown) Substance Use (units ( unknown) date) Type: does not use unknown) (unknown) (no (unknown) (unknown) Temperature 100.6 (units (unknown) date) F H unknown) (unknown) (no (unknown) (unknown) Temperature 101.8 (units (unknown) date) F H 02/07/22 08:10 unknown) (unknown) (no (unknown) (unknown) Time Seen by (units (u nknown) date) Provider: 02/07/22 unknown) 08:08 (unknown) (no (unknown) (unknown) Total Bilirubin (units (unknown) date) (0.2-1.3) mg/dL unknown) (unknown) (no (unknown) (unknown) Total Bilirubin (units (unknown) date) 0.5 (0.2-1.3) unknown) mg/dL (unknown) (no (unknown) (unknown) Total Creatine (units (unknown) date) Kinase (30-135) unknown) U/L (unknown) (no (unknown) (unknown) Total Creatine (units (unknown) date) Kinase 825 H unknown) (30-135) U/L (unknown) (no (unknown) (unknown) Total Protein (units ( unknown) date) (6.3-8.2) g/dL unknown) (unknown) (no (unknown) (unknown) Total Protein 7.9 (units (unknown) date) (6.3-8.2) g/dL unknown) (unknown) (no (unknown) (unknown) Troponin I < (units (u nknown) date) 0.012 (0.01-0.034) unknown) ng/mL (unknown) (no (unknown) (unknown) Troponin I (units (unk nown) date) (0.01-0.034) ng/mL unknown) (unknown) (no (unknown) (unknown) Ur Culture (units (unk nown) date) Indicated? Cult unknown) not indicated (unknown) (no (unknown) (unknown) Ur Culture (units (unk nown) date) Indicated? unknown) (unknown) (no (unknown) (unknown) Ur Squamous Epith (units (unknown) date) Cells (0-5/HPF) unknown) (unknown) (no (unknown) (unknown) Ur Squamous Epith (units (unknown) date) Cells 1-5 /hpf unknown) (0-5/HPF) (unknown) (no (unknown) (unknown) Ur Transition (units ( unknown) date) Epith Cell unknown) (0-5/HPF) (unknown) (no (unknown) (unknown) Ur Transition (units ( unknown) date) Epith Cell 0-1/hpf unknown) (0-5/HPF) (unknown) (no (unknown) (unknown) Urine Bacteria (units (unknown) date) (None) unknown) (unknown) (no (unknown) (unknown) Urine Bacteria (units (unknown) date) None seen (None) unknown) (unknown) (no (unknown) (unknown) Urine Dip (units (unkn own) date) unknown) (unknown) (no (unknown) (unknown) Urine (units (unknown) date) Test (Negative) unknown) (unknown) (no (unknown) (unknown) Urine (units (unknown) date) Test Negative unknown) (Negative) (unknown) (no (unknown) (unknown) Urine RBC (units (unkn own) date) (0-5/HPF) unknown) (unknown) (no (unknown) (unknown) Urine RBC None (units (unknown) date) seen (0-5/HPF) unknown) (unknown) (no (unknown) (unknown) Urine Specific (units (unknown) date) [place] 1.015 unknown) (unknown) (no (unknown) (unknown) Urine WBC (units (unkn own) date) (0-5/HPF) unknown) (unknown) (no (unknown) (unknown) Urine WBC 1-5/hpf (units (unknown) date) (0-5/HPF) unknown) (unknown) (no (unknown) (unknown) Vancomycin HCl (units (unknown) date) (Vancomycin Peak) unknown) 1 request MISC NOW ONE (unknown) (no (unknown) (unknown) Vancomycin HCl (units (unknown) date) (Vancomycin Per unknown) Pharmacy) 1 request MISC NOW ONE (unknown) (no (unknown) (unknown) Vancomycin HCl (units (unknown) date) (Vancomycin unknown) Trough) 1 request MISC NOW ONE (unknown) (no (unknown) (unknown) Vancomycin HCl (units (unknown) date) (Vancomycin) 750 unknown) mg in 150 mls @ 150 mls/hr IV NOW ONE (unknown) (no (unknown) (unknown) Vancomycin HCl (units (unknown) date) (Vancomycin) 750 unknown) mg in 150 mls @ 150 mls/hr IV Q8H [facility]ARDO (unknown) (no (unknown) (unknown) Vital Signs - 8 (units (unknown) date) hr unknown) (unknown) (no (unknown) (unknown) Vital Signs (units (un known) date) unknown) (unknown) (no (unknown) (unknown) Vital signs: (units (u nknown) date) unknown) (unknown) (no (unknown) (unknown) WBC (4.5-11.0) (units (unknown) date) X103/uL unknown) (unknown) (no (unknown) (unknown) WBC 4.5 (units (unkno wn) date) (4.5-11.0) X103/uL unknown) (unknown) (no (unknown) (unknown) [Embedded Image (units (unknown) date) Not Available] unknown) (unknown) (no (unknown) (unknown) and below, (units (unk nown) date) Unobtainable due unknown) to medical condition and Unobtainable due to mental (unknown) (no (unknown) (unknown) and her face. (units ( unknown) date) They went to unknown) [facility] last week she said she got an IV, (unknown) (no (unknown) (unknown) behavior has (units (u nknown) date) changed some in unknown) regards to she is spitting more. They do not (unknown) (no (unknown) (unknown) blood work and (units (unknown) date) doxepin for the unknown) itching. It was recommended that patient be (unknown) (no (unknown) (unknown) condition (units (unkn own) date) unknown) (unknown) (no (unknown) (unknown) difficult to (units (u nknown) date) tell. They state unknown) that her communication has not changed. She (unknown) (no (unknown) (unknown) guarding or (units (un known) date) rebound. unknown) (unknown) (no (unknown) (unknown) household (units (unkn own) date) members: family unknown) (unknown) (no (unknown) (unknown) intact (units (unkno wn) date) unknown) (unknown) (no (unknown) (unknown) is not eating she (units (unknown) date) continues to drink unknown) some. She started spitting more. Her (unknown) (no (unknown) (unknown) mirtazapine (units (un known) date) AdvReac unknown) Intermediate Rash severe Verified 01/30/22 06:52 (unknown) (no (unknown) (unknown) olanzapine 15 mg (units (unknown) date) tablet 15 mg PO unknown) BEDTIME #90 tabs 09/23/20 (unknown) (no (unknown) (unknown) over 3 hr (1146 (units (unknown) date) ml) IV NOW ONE unknown) (unknown) (no (unknown) (unknown) placed for (units (unk nown) date) psychiatric unknown) hospitalization but after a long wait parents (unknown) (no (unknown) (unknown) poorly controled (units (unknown) date) schizophrenia she unknown) has frequent itching/picking she has (unknown) (no (unknown) (unknown) primary history (units (unknown) date) is taken from mom unknown) using language line. Patient has severe (unknown) (no (unknown) (unknown) reconsidered and (units (unknown) date) wanted to take her unknown) home. She developed a fever last night she (unknown) (no (unknown) (unknown) report worsening (units (unknown) date) hallucinations unknown) although patient really does not seem verbal (unknown) (no (unknown) (unknown) scratched her (units ( unknown) date) head so often the unknown) wounds on her head are actually getting worse (unknown) (no (unknown) (unknown) scratches (units (unkn own) date) unknown) (unknown) (no (unknown) (unknown) sniffing. She (units ( unknown) date) denies any pain. unknown) Mom reports cough. (unknown) (no (unknown) (unknown) the right cheek (units (unknown) date) unknown) Result panel 463 (unknown) (no (unknown) (unknown) (no value) (units (unk nown) date) unknown) (unknown) (no (unknown) (unknown) (1) Septic shock: (units (unknown) date) unknown) (unknown) (no (unknown) (unknown) (2) Soft tissue (units (unknown) date) infection: unknown) (unknown) (no (unknown) (unknown) (past 8 hours): (units (unknown) date) unknown) (unknown) (no (unknown) (unknown) 08:22 08:22 08:22 (units (unknown) date) unknown) (unknown) (no (unknown) (unknown) 08:27 08:27 08:27 (units (unknown) date) unknown) (unknown) (no (unknown) (unknown) 08:27 08:42 09:20 (units (unknown) date) unknown) (unknown) (no (unknown) (unknown) 09:20 12:00 (units (un known) date) unknown) (unknown) (no (unknown) (unknown) 11:30 02/07/22 (units (unknown) date) unknown) (unknown) (no (unknown) (unknown) 02/07/22 08:27 (units (unknown) date) unknown) (unknown) (no (unknown) (unknown) 02/07/22 02/07/22 (units (unknown) date) 02/07/22 unknown) (unknown) (no (unknown) (unknown) 02/07/22 02/07/22 (units (unknown) date) unknown) (unknown) (no (unknown) (unknown) 02/07/22 13:24 (units (unknown) date) unknown) (unknown) (no (unknown) (unknown) 02/07/22 (units (unkno wn) date) unknown) (unknown) (no (unknown) (unknown) 02/07/22] (units (unkn own) date) unknown) (unknown) (no (unknown) (unknown) 12:00 02/07/22 (units (unknown) date) unknown) (unknown) (no (unknown) (unknown) 12:00 (units (unkno wn) date) unknown) (unknown) (no (unknown) (unknown) 12:30 02/07/22 (units (unknown) date) unknown) (unknown) (no (unknown) (unknown) 12:30 (units (unkno wn) date) unknown) (unknown) (no (unknown) (unknown) 12:33 02/07/22 (units (unknown) date) unknown) (unknown) (no (unknown) (unknown) 12:37 02/07/22 (units (unknown) date) unknown) (unknown) (no (unknown) (unknown) 12:37 (units (unkno wn) date) unknown) (unknown) (no (unknown) (unknown) 12:40 02/07/22 (units (unknown) date) unknown) (unknown) (no (unknown) (unknown) 12:40 (units (unkno wn) date) unknown) (unknown) (no (unknown) (unknown) 12:52 02/07/22 (units (unknown) date) unknown) (unknown) (no (unknown) (unknown) 13:00 02/07/22 (units (unknown) date) unknown) (unknown) (no (unknown) (unknown) 13:00 (units (unkno wn) date) unknown) (unknown) (no (unknown) (unknown) 13:01 02/07/22 (units (unknown) date) unknown) (unknown) (no (unknown) (unknown) 13:01 (units (unkno wn) date) unknown) (unknown) (no (unknown) (unknown) 13:05 02/07/22 (units (unknown) date) unknown) (unknown) (no (unknown) (unknown) 13:10 02/07/22 (units (unknown) date) unknown) (unknown) (no (unknown) (unknown) 13:10 (units (unkno wn) date) unknown) (unknown) (no (unknown) (unknown) 13:15 02/07/22 (units (unknown) date) unknown) (unknown) (no (unknown) (unknown) 13:15 (units (unkno wn) date) unknown) (unknown) (no (unknown) (unknown) 13:20 02/07/22 (units (unknown) date) unknown) (unknown) (no (unknown) (unknown) 13:25 02/07/22 (units (unknown) date) unknown) (unknown) (no (unknown) (unknown) 13:25 (units (unkno wn) date) unknown) (unknown) (no (unknown) (unknown) 13:30 02/07/22 (units (unknown) date) unknown) (unknown) (no (unknown) (unknown) 13:30 (units (unkno wn) date) unknown) (unknown) (no (unknown) (unknown) 13:35 02/07/22 (units (unknown) date) unknown) (unknown) (no (unknown) (unknown) 13:40 02/07/22 (units (unknown) date) unknown) (unknown) (no (unknown) (unknown) 13:40 (units (unkno wn) date) unknown) (unknown) (no (unknown) (unknown) 13:45 02/07/22 (units (unknown) date) unknown) (unknown) (no (unknown) (unknown) 13:45 (units (unkno wn) date) unknown) (unknown) (no (unknown) (unknown) 13:50 02/07/22 (units (unknown) date) unknown) (unknown) (no (unknown) (unknown) 13:55 02/07/22 (units (unknown) date) unknown) (unknown) (no (unknown) (unknown) 13:55 (units (unkno wn) date) unknown) (unknown) (no (unknown) (unknown) 14:00 02/07/22 (units (unknown) date) unknown) (unknown) (no (unknown) (unknown) 14:00 (units (unkno wn) date) unknown) (unknown) (no (unknown) (unknown) 14:05 02/07/22 (units (unknown) date) unknown) (unknown) (no (unknown) (unknown) 14:10 02/07/22 (units (unknown) date) unknown) (unknown) (no (unknown) (unknown) 14:10 (units (unkno wn) date) unknown) (unknown) (no (unknown) (unknown) 14:15 02/07/22 (units (unknown) date) unknown) (unknown) (no (unknown) (unknown) 14:15 (units (unkno wn) date) unknown) (unknown) (no (unknown) (unknown) 14:20 02/07/22 (units (unknown) date) unknown) (unknown) (no (unknown) (unknown) 14:25 02/07/22 (units (unknown) date) unknown) (unknown) (no (unknown) (unknown) 14:25 (units (unkno wn) date) unknown) (unknown) (no (unknown) (unknown) 14:30 02/07/22 (units (unknown) date) unknown) (unknown) (no (unknown) (unknown) 14:30 (units (unkno wn) date) unknown) (unknown) (no (unknown) (unknown) 14:35 12/12/22 (units (unknown) date) unknown) (unknown) (no (unknown) (unknown) 14:40 02/07/22 (units (unknown) date) unknown) (unknown) (no (unknown) (unknown) 14:40 (units (unkno wn) date) unknown) (unknown) (no (unknown) (unknown) 14:45 02/07/22 (units (unknown) date) unknown) (unknown) (no (unknown) (unknown) 14:45 (units (unkno wn) date) unknown) (unknown) (no (unknown) (unknown) 14:50 02/07/22 (units (unknown) date) unknown) (unknown) (no (unknown) (unknown) 14:55 02/07/22 (units (unknown) date) unknown) (unknown) (no (unknown) (unknown) 14:55 (units (unkno wn) date) unknown) (unknown) (no (unknown) (unknown) 15:00 02/07/22 (units (unknown) date) unknown) (unknown) (no (unknown) (unknown) 15:00 (units (unkno wn) date) unknown) (unknown) (no (unknown) (unknown) 15:05 02/07/22 (units (unknown) date) unknown) (unknown) (no (unknown) (unknown) 15:10 02/07/22 (units (unknown) date) unknown) (unknown) (no (unknown) (unknown) 15:10 (units (unkno wn) date) unknown) (unknown) (no (unknown) (unknown) 15:15 02/07/22 (units (unknown) date) unknown) (unknown) (no (unknown) (unknown) 15:15 (units (unkno wn) date) unknown) (unknown) (no (unknown) (unknown) 15:20 02/07/22 (units (unknown) date) unknown) (unknown) (no (unknown) (unknown) 15:25 02/07/22 (units (unknown) date) unknown) (unknown) (no (unknown) (unknown) 15:25 (units (unkno wn) date) unknown) (unknown) (no (unknown) (unknown) 15:30 02/07/22 (units (unknown) date) unknown) (unknown) (no (unknown) (unknown) 15:30 (units (unkno wn) date) unknown) (unknown) (no (unknown) (unknown) 15:35 02/07/22 (units (unknown) date) unknown) (unknown) (no (unknown) (unknown) 15:40 02/07/22 (units (unknown) date) unknown) (unknown) (no (unknown) (unknown) 15:40 (units (unkno wn) date) unknown) (unknown) (no (unknown) (unknown) 15:45 02/07/22 (units (unknown) date) unknown) (unknown) (no (unknown) (unknown) 15:45 (units (unkno wn) date) unknown) (unknown) (no (unknown) (unknown) 15:50 02/07/22 (units (unknown) date) unknown) (unknown) (no (unknown) (unknown) 15:55 02/07/22 (units (unknown) date) unknown) (unknown) (no (unknown) (unknown) 15:55 (units (unkno wn) date) unknown) (unknown) (no (unknown) (unknown) 16:00 02/07/22 (units (unknown) date) unknown) (unknown) (no (unknown) (unknown) 16:00 (units (unkno wn) date) unknown) (unknown) (no (unknown) (unknown) 16:05 02/07/22 (units (unknown) date) unknown) (unknown) (no (unknown) (unknown) 16:10 02/07/22 (units (unknown) date) unknown) (unknown) (no (unknown) (unknown) 16:10 (units (unkno wn) date) unknown) (unknown) (no (unknown) (unknown) 16:15 02/07/22 (units (unknown) date) unknown) (unknown) (no (unknown) (unknown) 16:15 (units (unkno wn) date) unknown) (unknown) (no (unknown) (unknown) 16:20 02/07/22 (units (unknown) date) unknown) (unknown) (no (unknown) (unknown) 16:20 (units (unkno wn) date) unknown) (unknown) (no (unknown) (unknown) 16:25 02/07/22 (units (unknown) date) unknown) (unknown) (no (unknown) (unknown) 16:30 02/07/22 (units (unknown) date) unknown) (unknown) (no (unknown) (unknown) 16:30 (units (unkno wn) date) unknown) (unknown) (no (unknown) (unknown) 16:35 02/07/22 (units (unknown) date) unknown) (unknown) (no (unknown) (unknown) 16:35 (units (unkno wn) date) unknown) (unknown) (no (unknown) (unknown) 16:40 02/07/22 (units (unknown) date) unknown) (unknown) (no (unknown) (unknown) 16:45 02/07/22 (units (unknown) date) unknown) (unknown) (no (unknown) (unknown) 16:45 (units (unkno wn) date) unknown) (unknown) (no (unknown) (unknown) 16:50 02/07/22 (units (unknown) date) unknown) (unknown) (no (unknown) (unknown) 16:50 (units (unkno wn) date) unknown) (unknown) (no (unknown) (unknown) 17:05 02/07/22 (units (unknown) date) unknown) (unknown) (no (unknown) (unknown) 17:17 02/07/22 (units (unknown) date) unknown) (unknown) (no (unknown) (unknown) 17:27 (units (unkno wn) date) unknown) (unknown) (no (unknown) (unknown) 18:58 (units (unkno wn) date) unknown) (unknown) (no (unknown) (unknown) 8 MCG/MIN (units (unkn own) date) unknown) (unknown) (no (unknown) (unknown) ALT 33 (units (unkno wn) date) unknown) (unknown) (no (unknown) (unknown) ALT (units (unkno wn) date) unknown) (unknown) (no (unknown) (unknown) AST 87 H (units (unkno wn) date) unknown) (unknown) (no (unknown) (unknown) AST (units (unkno wn) date) unknown) (unknown) (no (unknown) (unknown) Adenovirus (PCR) (units (unknown) date) Not detected unknown) (unknown) (no (unknown) (unknown) Adenovirus (PCR) (units (unknown) date) unknown) (unknown) (no (unknown) (unknown) Age/Sex: 31 / F (units (unknown) date) unknown) (unknown) (no (unknown) (unknown) Albumin 3.6 (units (un known) date) unknown) (unknown) (no (unknown) (unknown) Albumin (units (unkno wn) date) unknown) (unknown) (no (unknown) (unknown) Albumin/Globulin (units (unknown) date) Ratio 0.8 L unknown) (unknown) (no (unknown) (unknown) Albumin/Globulin (units (unknown) date) Ratio unknown) (unknown) (no (unknown) (unknown) Alkaline (units (unkno wn) date) Phosphatase 46 unknown) (unknown) (no (unknown) (unknown) Alkaline (units (unkno wn) date) Phosphatase unknown) (unknown) (no (unknown) (unknown) Assessment + Plan (units (unknown) date) unknown) (unknown) (no (unknown) (unknown) Assessment and (units (unknown) date) plan unknown) (unknown) (no (unknown) (unknown) Azithromycin 500 (units (unknown) date) mg/ Dextrose 250 unknown) mls @ 250 mls/hr 02/07/22 15:45 02/07/22 (unknown) (no (unknown) (unknown) B. pertussis DNA (units (unknown) date) (PCR) Not detected unknown) (unknown) (no (unknown) (unknown) B. pertussis DNA (units (unknown) date) (PCR) unknown) (unknown) (no (unknown) (unknown) B.parapertussis (units (unknown) date) DNA PCR Not unknown) detected (unknown) (no (unknown) (unknown) B.parapertussis (units (unknown) date) DNA PCR unknown) (unknown) (no (unknown) (unknown) BUN 14 (units (unkno wn) date) unknown) (unknown) (no (unknown) (unknown) BUN (units (unkno wn) date) unknown) (unknown) (no (unknown) (unknown) BUN/Creatinine (units (unknown) date) Ratio 21.9 unknown) (unknown) (no (unknown) (unknown) BUN/Creatinine (units (unknown) date) Ratio unknown) (unknown) (no (unknown) (unknown) Baso # (Auto) 0 (units (unknown) date) unknown) (unknown) (no (unknown) (unknown) Baso # (Auto) (units ( unknown) date) unknown) (unknown) (no (unknown) (unknown) Baso % (Auto) 0.5 (units (unknown) date) unknown) (unknown) (no (unknown) (unknown) Baso % (Auto) (units ( unknown) date) unknown) (unknown) (no (unknown) (unknown) Blood Pressure (units (unknown) date) 100 113/61 unknown) (unknown) (no (unknown) (unknown) Blood Pressure (units (unknown) date) unknown) (unknown) (no (unknown) (unknown) Blood Pressure (units (unknown) date) unknown) (unknown) (no (unknown) (unknown) Blood Pressure (units (unknown) date) unknown) (unknown) (no (unknown) (unknown) Blood Pressure (units (unknown) date) unknown) (unknown) (no (unknown) (unknown) Blood Pressure (units (unknown) date) unknown) (unknown) (no (unknown) (unknown) Blood Pressure (units (unknown) date) unknown) (unknown) (no (unknown) (unknown) Blood Pressure (units (unknown) date) unknown) (unknown) (no (unknown) (unknown) Blood Pressure (units (unknown) date) unknown) (unknown) (no (unknown) (unknown) Blood Pressure (units (unknown) date) unknown) (unknown) (no (unknown) (unknown) Blood Pressure (units (unknown) date) unknown) (unknown) (no (unknown) (unknown) Blood Pressure (units (unknown) date) unknown) (unknown) (no (unknown) (unknown) Blood Pressure (units (unknown) date) unknown) (unknown) (no (unknown) (unknown) Blood Pressure (units (unknown) date) unknown) (unknown) (no (unknown) (unknown) Blood Pressure (units (unknown) date) unknown) (unknown) (no (unknown) (unknown) Blood Pressure (units (unknown) date) 106/69 103/63 unknown) 106/70 (unknown) (no (unknown) (unknown) Blood Pressure (units (unknown) date) 106/ unknown) (unknown) (no (unknown) (unknown) Blood Pressure (units (unknown) date) 106/ 99/62 unknown) (unknown) (no (unknown) (unknown) Blood Pressure (units (unknown) date) 106/71 103/70 unknown) (unknown) (no (unknown) (unknown) Blood Pressure (units (unknown) date) 106/71 unknown) (unknown) (no (unknown) (unknown) Blood Pressure (units (unknown) date) 108/70 110/71 unknown) (unknown) (no (unknown) (unknown) Blood Pressure (units (unknown) date) 114/72 unknown) (unknown) (no (unknown) (unknown) Blood Pressure (units (unknown) date) 76/44 L unknown) (unknown) (no (unknown) (unknown) Blood Pressure (units (unknown) date) 85/54 L unknown) (unknown) (no (unknown) (unknown) Blood Pressure (units (unknown) date) 89/56 L 90/58 L unknown) (unknown) (no (unknown) (unknown) Blood Pressure (units (unknown) date) 96/58 L 97/58 L unknown) (unknown) (no (unknown) (unknown) Blood Pressure (units (unknown) date) 96/63 98/65 unknown) (unknown) (no (unknown) (unknown) Blood Pressure (units (unknown) date) 97/65 unknown) (unknown) (no (unknown) (unknown) Blood Pressure (units (unknown) date) 97/66 98/68 unknown) (unknown) (no (unknown) (unknown) Blood Pressure (units (unknown) date) 97/66 unknown) (unknown) (no (unknown) (unknown) Blood Pressure (units (unknown) date) 98/59 L unknown) (unknown) (no (unknown) (unknown) Blood Pressure (units (unknown) date) 98/60 97/59 L unknown) (unknown) (no (unknown) (unknown) Blood Pressure (units (unknown) date) 98/61 unknown) (unknown) (no (unknown) (unknown) Blood Pressure (units (unknown) date) 98/62 99/64 unknown) (unknown) (no (unknown) (unknown) Blood Pressure (units (unknown) date) 99/61 unknown) (unknown) (no (unknown) (unknown) Blood Pressure (units (unknown) date) 99/65 unknown) (unknown) (no (unknown) (unknown) Blood Pressure (units (unknown) date) 99/68 103/72 unknown) (unknown) (no (unknown) (unknown) Blood Pressure (units (unknown) date) unknown) (unknown) (no (unknown) (unknown) CK-MB (CK-2) 2.02 (units (unknown) date) unknown) (unknown) (no (unknown) (unknown) CK-MB (CK-2) Rel (units (unknown) date) Index 0.2 L unknown) (unknown) (no (unknown) (unknown) CK-MB (CK-2) Rel (units (unknown) date) Index unknown) (unknown) (no (unknown) (unknown) CK-MB (CK-2) (units (u nknown) date) unknown) (unknown) (no (unknown) (unknown) Calcium 8.3 L (units ( unknown) date) unknown) (unknown) (no (unknown) (unknown) Calcium (units (unkno wn) date) unknown) (unknown) (no (unknown) (unknown) Carbon Dioxide 23 (units (unknown) date) unknown) (unknown) (no (unknown) (unknown) Carbon Dioxide (units (unknown) date) unknown) (unknown) (no (unknown) (unknown) Chief complaint: (units (unknown) date) she has wounds on unknown) head, not eating, mucas in nose (unknown) (no (unknown) (unknown) Chlamy pneumoniae (units (unknown) date) PCR Not detected unknown) (unknown) (no (unknown) (unknown) Chlamy pneumoniae (units (unknown) date) PCR unknown) (unknown) (no (unknown) (unknown) Chloride 99 (units (un known) date) unknown) (unknown) (no (unknown) (unknown) Chloride (units (unkno wn) date) unknown) (unknown) (no (unknown) (unknown) Consent obtained (units (unknown) date) for unknown) tele-anesthesia assistant care: Yes (unknown) (no (unknown) (unknown) Consult details (units (unknown) date) unknown) (unknown) (no (unknown) (unknown) Coronavirus 229E (units (unknown) date) (PCR) Not detected unknown) (unknown) (no (unknown) (unknown) Coronavirus 229E (units (unknown) date) (PCR) unknown) (unknown) (no (unknown) (unknown) Coronavirus HKU1 (units (unknown) date) (PCR) Not detected unknown) (unknown) (no (unknown) (unknown) Coronavirus HKU1 (units (unknown) date) (PCR) unknown) (unknown) (no (unknown) (unknown) Coronavirus NL63 (units (unknown) date) (PCR) Not detected unknown) (unknown) (no (unknown) (unknown) Coronavirus NL63 (units (unknown) date) (PCR) unknown) (unknown) (no (unknown) (unknown) Coronavirus OC43 (units (unknown) date) (PCR) Not detected unknown) (unknown) (no (unknown) (unknown) Coronavirus OC43 (units (unknown) date) (PCR) unknown) (unknown) (no (unknown) (unknown) Creatinine 0.64 (units (unknown) date) unknown) (unknown) (no (unknown) (unknown) Creatinine (units (unk nown) date) unknown) (unknown) (no (unknown) (unknown) Critical Care (units ( unknown) date) time: unknown) (unknown) (no (unknown) (unknown) Current (units (unkno wn) date) Medications unknown) (unknown) (no (unknown) (unknown) D-Dimer 2351 H (units (unknown) date) unknown) (unknown) (no (unknown) (unknown) D-Dimer (units (unkno wn) date) unknown) (unknown) (no (unknown) (unknown) : 1990 (units (unknown) date) Acct:[id number] unknown) (unknown) (no (unknown) (unknown) Date Patient (units (u nknown) date) Seen: 02/07/22 unknown) (unknown) (no (unknown) (unknown) Date of Service: (units (unknown) date) 02/07/22 unknown) (unknown) (no (unknown) (unknown) Entero/Rhino (units (u nknown) date) (PCR) Not detected unknown) (unknown) (no (unknown) (unknown) Entero/Rhino (units (u nknown) date) (PCR) unknown) (unknown) (no (unknown) (unknown) Eos # (Auto) 0 (units (unknown) date) unknown) (unknown) (no (unknown) (unknown) Eos # (Auto) (units (u nknown) date) unknown) (unknown) (no (unknown) (unknown) Eos % (Auto) 0.0 (units (unknown) date) L unknown) (unknown) (no (unknown) (unknown) Eos % (Auto) (units (u nknown) date) unknown) (unknown) (no (unknown) (unknown) Estimated GFR > (units (unknown) date) 60 unknown) (unknown) (no (unknown) (unknown) Estimated GFR (units ( unknown) date) unknown) (unknown) (no (unknown) (unknown) Exam (units (unkno wn) date) unknown) (unknown) (no (unknown) (unknown) Generic Name Dose (units (unknown) date) Route Start Last unknown) Admin (unknown) (no (unknown) (unknown) Globulin 4.3 H (units (unknown) date) unknown) (unknown) (no (unknown) (unknown) Globulin (units (unkno wn) date) unknown) (unknown) (no (unknown) (unknown) Glucose 113 H (units ( unknown) date) unknown) (unknown) (no (unknown) (unknown) Glucose (units (unkno wn) date) unknown) (unknown) (no (unknown) (unknown) Hct 32.5 L (units (unk nown) date) unknown) (unknown) (no (unknown) (unknown) Hct (units (unkno wn) date) unknown) (unknown) (no (unknown) (unknown) Hgb 10.9 L (units (unk nown) date) unknown) (unknown) (no (unknown) (unknown) Hgb (units (unkno wn) date) unknown) (unknown) (no (unknown) (unknown) 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) (unknown) (no (unknown) (unknown) History of (units (unk nown) date) Present Illness unknown) (unknown) (no (unknown) (unknown) History of (units (unk nown) date) pulmonary embolism unknown) (unknown) (no (unknown) (unknown) Home Medications (units (unknown) date) unknown) (unknown) (no (unknown) (unknown) Human (units (unkno wn) date) Metapneumovir PCR unknown) Not detected (unknown) (no (unknown) (unknown) Human (units (unkno wn) date) Metapneumovir PCR unknown) (unknown) (no (unknown) (unknown) I spent a total (units (unknown) date) of [] minutes of unknown) critical care time on this patient's care (unknown) (no (unknown) (unknown) IV Infused (units (unk nown) date) unknown) (unknown) (no (unknown) (unknown) In the ER, after (units (unknown) date) receiving IVFs had unknown) a drop in her BP thus was placed on (unknown) (no (unknown) (unknown) Influenza A (units (un known) date) (RT-PCR) Flu a unknown) negative (unknown) (no (unknown) (unknown) Influenza A (units (un known) date) (RT-PCR) unknown) (unknown) (no (unknown) (unknown) Influenza B (units (un known) date) (RT-PCR) Flu b unknown) negative (unknown) (no (unknown) (unknown) Influenza B (units (un known) date) (RT-PCR) unknown) (unknown) (no (unknown) (unknown) Influenza Type A (units (unknown) date) (PCR) Not detected unknown) (unknown) (no (unknown) (unknown) Influenza Type A (units (unknown) date) (PCR) unknown) (unknown) (no (unknown) (unknown) Influenza Type B (units (unknown) date) (PCR) Not detected unknown) (unknown) (no (unknown) (unknown) Influenza Type B (units (unknown) date) (PCR) unknown) (unknown) (no (unknown) (unknown) [facility] (units (unknown) date) [address] unknown) [place] [address] (unknown) (no (unknown) (unknown) Laboratory (units (unk nown) date) Results - last 24 unknown) hr (unknown) (no (unknown) (unknown) Labs (units (unkno wn) date) unknown) (unknown) (no (unknown) (unknown) Labs: (units (unkno wn) date) unknown) (unknown) (no (unknown) (unknown) Lactate 1.6 (units (un known) date) unknown) (unknown) (no (unknown) (unknown) Lactate WNL. On (units (unknown) date) Levophed 3 at time unknown) of ICU arrival. (unknown) (no (unknown) (unknown) Lactate (units (unkno wn) date) unknown) (unknown) (no (unknown) (unknown) Levophed IV 3 (units ( unknown) date) mcg/min unknown) (unknown) (no (unknown) (unknown) Levophed. A RIJ (units (unknown) date) CVC was placed. In unknown) the ER, history was mainly obtained from (unknown) (no (unknown) (unknown) Lymph # (Auto) (units (unknown) date) 900 L unknown) (unknown) (no (unknown) (unknown) Lymph # (Auto) (units (unknown) date) unknown) (unknown) (no (unknown) (unknown) Lymph % (Auto) (units (unknown) date) 20.7 L unknown) (unknown) (no (unknown) (unknown) Lymph % (Auto) (units (unknown) date) unknown) (unknown) (no (unknown) (unknown) M. pneumoniae (units ( unknown) date) (PCR) Not detected unknown) (unknown) (no (unknown) (unknown) M. pneumoniae (units ( unknown) date) (PCR) unknown) (unknown) (no (unknown) (unknown) [id number] (units (unk nown) date) unknown) (unknown) (no (unknown) (unknown) MCH 28.7 (units (unkno wn) date) unknown) (unknown) (no (unknown) (unknown) MCH (units (unkno wn) date) unknown) (unknown) (no (unknown) (unknown) MCHC 33.5 (units (unkn own) date) unknown) (unknown) (no (unknown) (unknown) MCHC (units (unkno wn) date) unknown) (unknown) (no (unknown) (unknown) MCV 85.7 (units (unkno wn) date) unknown) (unknown) (no (unknown) (unknown) MCV (units (unkno wn) date) unknown) (unknown) (no (unknown) (unknown) Magnesium 2.1 (units ( unknown) date) unknown) (unknown) (no (unknown) (unknown) Magnesium (units (unkn own) date) unknown) (unknown) (no (unknown) (unknown) Medical History (units (unknown) date) (Updated 02/07/22 unknown) @ 19:26 by Marilu Philip) (unknown) (no (unknown) (unknown) Medications: (units (u nknown) date) unknown) (unknown) (no (unknown) (unknown) Butts # (Auto) 500 (units (unknown) date) unknown) (unknown) (no (unknown) (unknown) Butts # (Auto) (units ( unknown) date) unknown) (unknown) (no (unknown) (unknown) Butts % (Auto) (units ( unknown) date) 10.1 unknown) (unknown) (no (unknown) (unknown) Butts % (Auto) (units ( unknown) date) unknown) (unknown) (no (unknown) (unknown) NOREPINEPHRINE (units (unknown) date) BITARTRATE/D5W 4 unknown) mg in 250 mls @ 30 mls/hr 02/07/22 12:34 (unknown) (no (unknown) (unknown) Narrative: (units (unk nown) date) unknown) (unknown) (no (unknown) (unknown) Neut # (Auto) (units ( unknown) date) 3100 unknown) (unknown) (no (unknown) (unknown) Neut # (Auto) (units ( unknown) date) unknown) (unknown) (no (unknown) (unknown) Neut % (Auto) (units ( unknown) date) 68.7 unknown) (unknown) (no (unknown) (unknown) Neut % (Auto) (units ( unknown) date) unknown) (unknown) (no (unknown) (unknown) Objective (units (unkn own) date) unknown) (unknown) (no (unknown) (unknown) Other (units (unkno wn) date) participants/roles unknown) : RN (unknown) (no (unknown) (unknown) Oxygen Delivery (units (unknown) date) Method Room Air unknown) (unknown) (no (unknown) (unknown) Oxygen Delivery (units (unknown) date) Method unknown) (unknown) (no (unknown) (unknown) Oxygen Flow Rate (units (unknown) date) 0 unknown) (unknown) (no (unknown) (unknown) Oxygen Flow Rate (units (unknown) date) unknown) (unknown) (no (unknown) (unknown) PFSH (units (unkno wn) date) unknown) (unknown) (no (unknown) (unknown) Parainfluenza 1 (units (unknown) date) (PCR) Not detected unknown) (unknown) (no (unknown) (unknown) Parainfluenza 1 (units (unknown) date) (PCR) unknown) (unknown) (no (unknown) (unknown) Parainfluenza 2 (units (unknown) date) (PCR) Not detected unknown) (unknown) (no (unknown) (unknown) Parainfluenza 2 (units (unknown) date) (PCR) unknown) (unknown) (no (unknown) (unknown) Parainfluenza 3 (units (unknown) date) (PCR) Not detected unknown) (unknown) (no (unknown) (unknown) Parainfluenza 3 (units (unknown) date) (PCR) unknown) (unknown) (no (unknown) (unknown) Parainfluenza 4 (units (unknown) date) (PCR) Not detected unknown) (unknown) (no (unknown) (unknown) Parainfluenza 4 (units (unknown) date) (PCR) unknown) (unknown) (no (unknown) (unknown) Patient Location: (units (unknown) date) ICU unknown) (unknown) (no (unknown) (unknown) Patient is a 31F (units (unknown) date) with a PMH of unknown) Schizophrenia, PE (previousy on AC many years (unknown) (no (unknown) (unknown) Patient received (units (unknown) date) Vanc, Zosyn, unknown) Azithromycin. CTA w/o PE. UA without infection. (unknown) (no (unknown) (unknown) Patient: (units (unkno wn) date) GeneVanessa unknown) B MR#: (unknown) (no (unknown) (unknown) Plt Count 155 (units ( unknown) date) unknown) (unknown) (no (unknown) (unknown) Plt Count (units (unkn own) date) unknown) (unknown) (no (unknown) (unknown) Potassium 3.6 (units ( unknown) date) unknown) (unknown) (no (unknown) (unknown) Potassium (units (unkn own) date) unknown) (unknown) (no (unknown) (unknown) Procalcitonin (units ( unknown) date) 1.08 H unknown) (unknown) (no (unknown) (unknown) Procalcitonin (units ( unknown) date) unknown) (unknown) (no (unknown) (unknown) Protocol (units (unkno wn) date) unknown) (unknown) (no (unknown) (unknown) Provider location (units (unknown) date) (State): [place] unknown) (unknown) (no (unknown) (unknown) Provider: (units (unkn own) date) Marilu Philip unknown) (unknown) (no (unknown) (unknown) Pulse Oximetry (units (unknown) date) 100 100 unknown) (unknown) (no (unknown) (unknown) Pulse Oximetry (units (unknown) date) 100 99 unknown) (unknown) (no (unknown) (unknown) Pulse Oximetry (units (unknown) date) 100 unknown) (unknown) (no (unknown) (unknown) Pulse Oximetry 98 (units (unknown) date) 100 unknown) (unknown) (no (unknown) (unknown) Pulse Oximetry 98 (units (unknown) date) 96 unknown) (unknown) (no (unknown) (unknown) Pulse Oximetry 98 (units (unknown) date) 98 unknown) (unknown) (no (unknown) (unknown) Pulse Oximetry 98 (units (unknown) date) 99 unknown) (unknown) (no (unknown) (unknown) Pulse Oximetry 98 (units (unknown) date) unknown) (unknown) (no (unknown) (unknown) Pulse Oximetry 99 (units (unknown) date) 98 unknown) (unknown) (no (unknown) (unknown) Pulse Oximetry 99 (units (unknown) date) 99 unknown) (unknown) (no (unknown) (unknown) Pulse Oximetry 99 (units (unknown) date) unknown) (unknown) (no (unknown) (unknown) Pulse Rate 100 H (units (unknown) date) unknown) (unknown) (no (unknown) (unknown) Pulse Rate 65 (units ( unknown) date) unknown) (unknown) (no (unknown) (unknown) Pulse Rate 67 64 (units (unknown) date) unknown) (unknown) (no (unknown) (unknown) Pulse Rate 67 65 (units (unknown) date) unknown) (unknown) (no (unknown) (unknown) Pulse Rate 67 77 (units (unknown) date) unknown) (unknown) (no (unknown) (unknown) Pulse Rate 68 69 (units (unknown) date) unknown) (unknown) (no (unknown) (unknown) Pulse Rate 68 (units ( unknown) date) unknown) (unknown) (no (unknown) (unknown) Pulse Rate 69 (units ( unknown) date) unknown) (unknown) (no (unknown) (unknown) Pulse Rate 70 72 (units (unknown) date) unknown) (unknown) (no (unknown) (unknown) Pulse Rate 70 (units ( unknown) date) unknown) (unknown) (no (unknown) (unknown) Pulse Rate 71 (units ( unknown) date) unknown) (unknown) (no (unknown) (unknown) Pulse Rate 72 71 (units (unknown) date) unknown) (unknown) (no (unknown) (unknown) Pulse Rate 72 72 (units (unknown) date) unknown) (unknown) (no (unknown) (unknown) Pulse Rate 73 79 (units (unknown) date) unknown) (unknown) (no (unknown) (unknown) Pulse Rate 73 (units ( unknown) date) unknown) (unknown) (no (unknown) (unknown) Pulse Rate 74 74 (units (unknown) date) unknown) (unknown) (no (unknown) (unknown) Pulse Rate 75 (units ( unknown) date) unknown) (unknown) (no (unknown) (unknown) Pulse Rate 77 71 (units (unknown) date) unknown) (unknown) (no (unknown) (unknown) Pulse Rate 77 (units ( unknown) date) unknown) (unknown) (no (unknown) (unknown) Pulse Rate 78 63 (units (unknown) date) unknown) (unknown) (no (unknown) (unknown) Pulse Rate 78 (units ( unknown) date) unknown) (unknown) (no (unknown) (unknown) Pulse Rate 79 79 (units (unknown) date) unknown) (unknown) (no (unknown) (unknown) Pulse Rate 79 (units ( unknown) date) unknown) (unknown) (no (unknown) (unknown) Pulse Rate 80 79 (units (unknown) date) unknown) (unknown) (no (unknown) (unknown) Pulse Rate 80 81 (units (unknown) date) unknown) (unknown) (no (unknown) (unknown) Pulse Rate 80 (units ( unknown) date) unknown) (unknown) (no (unknown) (unknown) Pulse Rate 81 70 (units (unknown) date) unknown) (unknown) (no (unknown) (unknown) Pulse Rate 83 (units ( unknown) date) unknown) (unknown) (no (unknown) (unknown) Pulse Rate 89 79 (units (unknown) date) unknown) (unknown) (no (unknown) (unknown) Pulse Rate 89 80 (units (unknown) date) unknown) (unknown) (no (unknown) (unknown) Pulse Rate 89 (units ( unknown) date) unknown) (unknown) (no (unknown) (unknown) Pulse Rate 90 90 (units (unknown) date) unknown) (unknown) (no (unknown) (unknown) Pulse Rate 91 H (units (unknown) date) 99 H unknown) (unknown) (no (unknown) (unknown) Pulse Rate 93 H (units (unknown) date) unknown) (unknown) (no (unknown) (unknown) Pulse Rate 95 H (units (unknown) date) unknown) (unknown) (no (unknown) (unknown) Q24H [facility] Infusion (units (unknown) date) unknown) (unknown) (no (unknown) (unknown) Q8H [facility] (units (unkno wn) date) Administration unknown) (unknown) (no (unknown) (unknown) RBC 3.79 L (units (unk nown) date) unknown) (unknown) (no (unknown) (unknown) RBC (units (unkno wn) date) unknown) (unknown) (no (unknown) (unknown) RDW 14.1 (units (unkno wn) date) unknown) (unknown) (no (unknown) (unknown) RDW (units (unkno wn) date) unknown) (unknown) (no (unknown) (unknown) RSV (PCR) (units (unkn own) date) Negative unknown) (unknown) (no (unknown) (unknown) RSV (PCR) Not (units ( unknown) date) detected unknown) (unknown) (no (unknown) (unknown) RSV (PCR) (units (unkn own) date) unknown) (unknown) (no (unknown) (unknown) Respiratory Rate (units (unknown) date) 17 unknown) (unknown) (no (unknown) (unknown) Respiratory Rate (units (unknown) date) 19 unknown) (unknown) (no (unknown) (unknown) Respiratory Rate (units (unknown) date) 21 unknown) (unknown) (no (unknown) (unknown) Respiratory Rate (units (unknown) date) 24 unknown) (unknown) (no (unknown) (unknown) Respiratory Rate (units (unknown) date) 25 H 20 unknown) (unknown) (no (unknown) (unknown) Respiratory Rate (units (unknown) date) 25 H 36 H unknown) (unknown) (no (unknown) (unknown) Respiratory Rate (units (unknown) date) 25 H unknown) (unknown) (no (unknown) (unknown) Respiratory Rate (units (unknown) date) 26 H unknown) (unknown) (no (unknown) (unknown) Respiratory Rate (units (unknown) date) 27 H 29 H unknown) (unknown) (no (unknown) (unknown) Respiratory Rate (units (unknown) date) 27 H unknown) (unknown) (no (unknown) (unknown) Respiratory Rate (units (unknown) date) 28 H 16 unknown) (unknown) (no (unknown) (unknown) Respiratory Rate (units (unknown) date) 28 H 26 H unknown) (unknown) (no (unknown) (unknown) Respiratory Rate (units (unknown) date) 28 H 28 H unknown) (unknown) (no (unknown) (unknown) Respiratory Rate (units (unknown) date) 28 H 29 H unknown) (unknown) (no (unknown) (unknown) Respiratory Rate (units (unknown) date) 29 H 26 H unknown) (unknown) (no (unknown) (unknown) Respiratory Rate (units (unknown) date) 29 H unknown) (unknown) (no (unknown) (unknown) Respiratory Rate (units (unknown) date) 30 H 28 H unknown) (unknown) (no (unknown) (unknown) Respiratory Rate (units (unknown) date) 30 H 31 H unknown) (unknown) (no (unknown) (unknown) Respiratory Rate (units (unknown) date) 30 H 32 H unknown) (unknown) (no (unknown) (unknown) Respiratory Rate (units (unknown) date) 30 H unknown) (unknown) (no (unknown) (unknown) Respiratory Rate (units (unknown) date) 31 H 26 H unknown) (unknown) (no (unknown) (unknown) Respiratory Rate (units (unknown) date) 31 H 28 H unknown) (unknown) (no (unknown) (unknown) Respiratory Rate (units (unknown) date) 31 H 30 H unknown) (unknown) (no (unknown) (unknown) Respiratory Rate (units (unknown) date) 31 H unknown) (unknown) (no (unknown) (unknown) Respiratory Rate (units (unknown) date) 32 H 30 H unknown) (unknown) (no (unknown) (unknown) Respiratory Rate (units (unknown) date) 32 H unknown) (unknown) (no (unknown) (unknown) Respiratory Rate (units (unknown) date) 34 H 18 unknown) (unknown) (no (unknown) (unknown) Respiratory Rate (units (unknown) date) 34 H 20 unknown) (unknown) (no (unknown) (unknown) Respiratory Rate (units (unknown) date) unknown) (unknown) (no (unknown) (unknown) Result Diagrams: (units (unknown) date) unknown) (unknown) (no (unknown) (unknown) SARS-CoV-2 (PCR) (units (unknown) date) Negative unknown) (unknown) (no (unknown) (unknown) SARS-CoV-2 (PCR) (units (unknown) date) Not detected unknown) (unknown) (no (unknown) (unknown) SARS-CoV-2 (PCR) (units (unknown) date) unknown) (unknown) (no (unknown) (unknown) Schizophrenia (units ( unknown) date) unknown) (unknown) (no (unknown) (unknown) Signed By: (units (unk nown) date) unknown) (unknown) (no (unknown) (unknown) Smoking Status: (units (unknown) date) Never smoker unknown) (unknown) (no (unknown) (unknown) Social History (units (unknown) date) unknown) (unknown) (no (unknown) (unknown) Sodium 134 L (units (u nknown) date) unknown) (unknown) (no (unknown) (unknown) Sodium (units (unkno wn) date) unknown) (unknown) (no (unknown) (unknown) Status: Acute (units ( unknown) date) unknown) (unknown) (no (unknown) (unknown) TITRATE [facility] 11.25 (units (unknown) date) mls/hr unknown) (unknown) (no (unknown) (unknown) 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 (units (unknown) date) Consult Note unknown) (unknown) (no (unknown) (unknown) Temperature 100.4 (units (unknown) date) F H 100.0 F H unknown) (unknown) (no (unknown) (unknown) Temperature 100.6 (units (unknown) date) F H unknown) (unknown) (no (unknown) (unknown) Temperature 98.2 (units (unknown) date) F unknown) (unknown) (no (unknown) (unknown) Temperature 98.4 (units (unknown) date) F 98.2 F unknown) (unknown) (no (unknown) (unknown) Temperature 98.4 (units (unknown) date) F 98.4 F unknown) (unknown) (no (unknown) (unknown) Temperature 98.4 (units (unknown) date) F 98.6 F unknown) (unknown) (no (unknown) (unknown) Temperature 98.4 (units (unknown) date) F unknown) (unknown) (no (unknown) (unknown) Temperature 98.6 (units (unknown) date) F 98.6 F unknown) (unknown) (no (unknown) (unknown) Temperature 98.6 (units (unknown) date) F unknown) (unknown) (no (unknown) (unknown) Temperature 98.8 (units (unknown) date) F 98.6 F unknown) (unknown) (no (unknown) (unknown) Temperature 98.8 (units (unknown) date) F unknown) (unknown) (no (unknown) (unknown) Temperature 99.0 (units (unknown) date) F 99.0 F unknown) (unknown) (no (unknown) (unknown) Temperature 99.0 (units (unknown) date) F unknown) (unknown) (no (unknown) (unknown) Temperature 99.1 (units (unknown) date) F 99.1 F unknown) (unknown) (no (unknown) (unknown) Temperature 99.1 (units (unknown) date) F unknown) (unknown) (no (unknown) (unknown) Temperature 99.3 (units (unknown) date) F unknown) (unknown) (no (unknown) (unknown) Temperature 99.7 (units (unknown) date) F H unknown) (unknown) (no (unknown) (unknown) Temperature 99.9 (units (unknown) date) F H 99.9 F H unknown) (unknown) (no (unknown) (unknown) Temperature (units (un known) date) unknown) (unknown) (no (unknown) (unknown) Time Spent With (units (unknown) date) Patient unknown) (unknown) (no (unknown) (unknown) Titration (units (unkn own) date) unknown) (unknown) (no (unknown) (unknown) Total Bilirubin (units (unknown) date) 0.5 unknown) (unknown) (no (unknown) (unknown) Total Bilirubin (units (unknown) date) unknown) (unknown) (no (unknown) (unknown) Total Creatine (units (unknown) date) Kinase 825 H unknown) (unknown) (no (unknown) (unknown) Total Creatine (units (unknown) date) Kinase unknown) (unknown) (no (unknown) (unknown) Total Protein 7.9 (units (unknown) date) unknown) (unknown) (no (unknown) (unknown) Total Protein (units ( unknown) date) unknown) (unknown) (no (unknown) (unknown) Trade Name Freq (units (unknown) date) PRN Reason Stop unknown) Dose Admin (unknown) (no (unknown) (unknown) Troponin I < (units (u nknown) date) 0.012 unknown) (unknown) (no (unknown) (unknown) Troponin I (units (unk nown) date) unknown) (unknown) (no (unknown) (unknown) Ur Culture (units (unk nown) date) Indicated? Cult unknown) not indicated (unknown) (no (unknown) (unknown) Ur Culture (units (unk nown) date) Indicated? unknown) (unknown) (no (unknown) (unknown) Ur Squamous Epith (units (unknown) date) Cells 1-5 /hpf unknown) (unknown) (no (unknown) (unknown) Ur Squamous Epith (units (unknown) date) Cells unknown) (unknown) (no (unknown) (unknown) Ur Transition (units ( unknown) date) Epith Cell 0-1/hpf unknown) (unknown) (no (unknown) (unknown) Ur Transition (units ( unknown) date) Epith Cell unknown) (unknown) (no (unknown) (unknown) Urine Bacteria (units (unknown) date) None seen unknown) (unknown) (no (unknown) (unknown) Urine Bacteria (units (unknown) date) unknown) (unknown) (no (unknown) (unknown) Urine (units (unknown) date) Test Negative unknown) (unknown) (no (unknown) (unknown) Urine (units (unknown) date) Test unknown) (unknown) (no (unknown) (unknown) Urine RBC None (units (unknown) date) seen unknown) (unknown) (no (unknown) (unknown) Urine RBC (units (unkn own) date) unknown) (unknown) (no (unknown) (unknown) Urine WBC 1-5/hpf (units (unknown) date) unknown) (unknown) (no (unknown) (unknown) Urine WBC (units (unkn own) date) unknown) (unknown) (no (unknown) (unknown) Vancomycin HCl (units (unknown) date) 750 mg in 150 mls unknown) @ 150 mls/hr 02/07/22 18:00 02/07/22 18:30 (unknown) (no (unknown) (unknown) Vancomycin IV 150 (units (unknown) date) mls/hr unknown) (unknown) (no (unknown) (unknown) Visit Medications (units (unknown) date) (administered) unknown) (unknown) (no (unknown) (unknown) Vital Signs (units (un known) date) unknown) (unknown) (no (unknown) (unknown) WBC 4.5 (units (unkno wn) date) unknown) (unknown) (no (unknown) (unknown) WBC (units (unkno wn) date) unknown) (unknown) (no (unknown) (unknown) [Embedded Image (units (unknown) date) Not Available] unknown) (unknown) (no (unknown) (unknown) ago, IVC filter - (units (unknown) date) unclear if unknown) removed) who was admitted to the ICU this evening (unknown) (no (unknown) (unknown) and skin (units (unkno wn) date) infection. Had unknown) recently been placed on Keflex by outside hospital/ENT? (unknown) (no (unknown) (unknown) household (units (unkn own) date) members: family unknown) (unknown) (no (unknown) (unknown) olanzapine 15 mg (units (unknown) date) tablet 15 mg PO unknown) BEDTIME #90 tabs 09/23/20 [Rx Confirmed (unknown) (no (unknown) (unknown) patient's mother (units (unknown) date) using a Tagalog unknown) clinical project coordinator. (unknown) (no (unknown) (unknown) today; this time (units (unknown) date) is exclusive of unknown) procedural time. (unknown) (no (unknown) (unknown) with c/f septic (units (unknown) date) shock. Per unknown) Hospitalist report, patient presented with fevers Result panel 464 (unknown) (no (unknown) (unknown) (no value) (units (unk nown) date) unknown) (unknown) (no (unknown) (unknown) (1) Septic shock: (units (unknown) date) unknown) (unknown) (no (unknown) (unknown) (2) Soft tissue (units (unknown) date) infection: unknown) (unknown) (no (unknown) (unknown) (past 8 hours): (units (unknown) date) unknown) (unknown) (no (unknown) (unknown) - COntinue (units (unk nown) date) unknown) (unknown) (no (unknown) (unknown) - Continue (units (unk nown) date) Levophed, titrated unknown) to MAP goal >65 (unknown) (no (unknown) (unknown) - Continue Vanc, (units (unknown) date) Zosyn, unknown) Azithromycin (unknown) (no (unknown) (unknown) - Follow up (units (un known) date) cultures, MRSA unknown) swab (unknown) (no (unknown) (unknown) - If persistent (units (unknown) date) sepsis, may need unknown) to further explore sinusitis/abscesse s in (unknown) (no (unknown) (unknown) - If remains on (units (unknown) date) LEvophed tomorrow, unknown) would obtain TTE (unknown) (no (unknown) (unknown) - Monitor UOP, (units (unknown) date) goal is unknown) >0.5cc/kg/hour (unknown) (no (unknown) (unknown) - PPI (units (unkno wn) date) unknown) (unknown) (no (unknown) (unknown) - VTE PPx with (units (unknown) date) Lovenox unknown) (unknown) (no (unknown) (unknown) 08:22 08:22 08:22 (units (unknown) date) unknown) (unknown) (no (unknown) (unknown) 08:27 08:27 08:27 (units (unknown) date) unknown) (unknown) (no (unknown) (unknown) 08:27 08:42 09:20 (units (unknown) date) unknown) (unknown) (no (unknown) (unknown) 09:20 12:00 (units (un known) date) unknown) (unknown) (no (unknown) (unknown) 11:30 02/07/22 (units (unknown) date) unknown) (unknown) (no (unknown) (unknown) 02/07/22 08:27 (units (unknown) date) unknown) (unknown) (no (unknown) (unknown) 02/07/22 02/07/22 (units (unknown) date) 02/07/22 unknown) (unknown) (no (unknown) (unknown) 02/07/22 02/07/22 (units (unknown) date) unknown) (unknown) (no (unknown) (unknown) 02/07/22 13:24 (units (unknown) date) unknown) (unknown) (no (unknown) (unknown) 02/07/22 (units (unkno wn) date) unknown) (unknown) (no (unknown) (unknown) 02/07/22] (units (unkn own) date) unknown) (unknown) (no (unknown) (unknown) 12:00 02/07/22 (units (unknown) date) unknown) (unknown) (no (unknown) (unknown) 12:00 (units (unkno wn) date) unknown) (unknown) (no (unknown) (unknown) 12:30 02/07/22 (units (unknown) date) unknown) (unknown) (no (unknown) (unknown) 12:30 (units (unkno wn) date) unknown) (unknown) (no (unknown) (unknown) 12:33 02/07/22 (units (unknown) date) unknown) (unknown) (no (unknown) (unknown) 12:37 02/07/22 (units (unknown) date) unknown) (unknown) (no (unknown) (unknown) 12:37 (units (unkno wn) date) unknown) (unknown) (no (unknown) (unknown) 12:40 02/07/22 (units (unknown) date) unknown) (unknown) (no (unknown) (unknown) 12:40 (units (unkno wn) date) unknown) (unknown) (no (unknown) (unknown) 12:52 02/07/22 (units (unknown) date) unknown) (unknown) (no (unknown) (unknown) 13:00 02/07/22 (units (unknown) date) unknown) (unknown) (no (unknown) (unknown) 13:00 (units (unkno wn) date) unknown) (unknown) (no (unknown) (unknown) 13:01 02/07/22 (units (unknown) date) unknown) (unknown) (no (unknown) (unknown) 13:01 (units (unkno wn) date) unknown) (unknown) (no (unknown) (unknown) 13:05 02/07/22 (units (unknown) date) unknown) (unknown) (no (unknown) (unknown) 13:10 02/07/22 (units (unknown) date) unknown) (unknown) (no (unknown) (unknown) 13:10 (units (unkno wn) date) unknown) (unknown) (no (unknown) (unknown) 13:15 02/07/22 (units (unknown) date) unknown) (unknown) (no (unknown) (unknown) 13:15 (units (unkno wn) date) unknown) (unknown) (no (unknown) (unknown) 13:20 02/07/22 (units (unknown) date) unknown) (unknown) (no (unknown) (unknown) 13:25 02/07/22 (units (unknown) date) unknown) (unknown) (no (unknown) (unknown) 13:25 (units (unkno wn) date) unknown) (unknown) (no (unknown) (unknown) 13:30 02/07/22 (units (unknown) date) unknown) (unknown) (no (unknown) (unknown) 13:30 (units (unkno wn) date) unknown) (unknown) (no (unknown) (unknown) 13:35 02/07/22 (units (unknown) date) unknown) (unknown) (no (unknown) (unknown) 13:40 02/07/22 (units (unknown) date) unknown) (unknown) (no (unknown) (unknown) 13:40 (units (unkno wn) date) unknown) (unknown) (no (unknown) (unknown) 13:45 02/07/22 (units (unknown) date) unknown) (unknown) (no (unknown) (unknown) 13:45 (units (unkno wn) date) unknown) (unknown) (no (unknown) (unknown) 13:50 02/07/22 (units (unknown) date) unknown) (unknown) (no (unknown) (unknown) 13:55 02/07/22 (units (unknown) date) unknown) (unknown) (no (unknown) (unknown) 13:55 (units (unkno wn) date) unknown) (unknown) (no (unknown) (unknown) 14:00 02/07/22 (units (unknown) date) unknown) (unknown) (no (unknown) (unknown) 14:00 (units (unkno wn) date) unknown) (unknown) (no (unknown) (unknown) 14:05 02/07/22 (units (unknown) date) unknown) (unknown) (no (unknown) (unknown) 14:10 02/07/22 (units (unknown) date) unknown) (unknown) (no (unknown) (unknown) 14:10 (units (unkno wn) date) unknown) (unknown) (no (unknown) (unknown) 14:15 02/07/22 (units (unknown) date) unknown) (unknown) (no (unknown) (unknown) 14:15 (units (unkno wn) date) unknown) (unknown) (no (unknown) (unknown) 14:20 02/07/22 (units (unknown) date) unknown) (unknown) (no (unknown) (unknown) 14:25 02/07/22 (units (unknown) date) unknown) (unknown) (no (unknown) (unknown) 14:25 (units (unkno wn) date) unknown) (unknown) (no (unknown) (unknown) 14:30 02/07/22 (units (unknown) date) unknown) (unknown) (no (unknown) (unknown) 14:30 (units (unkno wn) date) unknown) (unknown) (no (unknown) (unknown) 14:35 02/07/22 (units (unknown) date) unknown) (unknown) (no (unknown) (unknown) 14:40 02/07/22 (units (unknown) date) unknown) (unknown) (no (unknown) (unknown) 14:40 (units (unkno wn) date) unknown) (unknown) (no (unknown) (unknown) 14:45 02/07/22 (units (unknown) date) unknown) (unknown) (no (unknown) (unknown) 14:45 (units (unkno wn) date) unknown) (unknown) (no (unknown) (unknown) 14:50 02/07/22 (units (unknown) date) unknown) (unknown) (no (unknown) (unknown) 14:55 02/07/22 (units (unknown) date) unknown) (unknown) (no (unknown) (unknown) 14:55 (units (unkno wn) date) unknown) (unknown) (no (unknown) (unknown) 15:00 02/07/22 (units (unknown) date) unknown) (unknown) (no (unknown) (unknown) 15:00 (units (unkno wn) date) unknown) (unknown) (no (unknown) (unknown) 15:05 02/07/22 (units (unknown) date) unknown) (unknown) (no (unknown) (unknown) 15:10 02/07/22 (units (unknown) date) unknown) (unknown) (no (unknown) (unknown) 15:10 (units (unkno wn) date) unknown) (unknown) (no (unknown) (unknown) 15:15 02/07/22 (units (unknown) date) unknown) (unknown) (no (unknown) (unknown) 15:15 (units (unkno wn) date) unknown) (unknown) (no (unknown) (unknown) 15:20 02/07/22 (units (unknown) date) unknown) (unknown) (no (unknown) (unknown) 15:25 02/07/22 (units (unknown) date) unknown) (unknown) (no (unknown) (unknown) 15:25 (units (unkno wn) date) unknown) (unknown) (no (unknown) (unknown) 15:30 02/07/22 (units (unknown) date) unknown) (unknown) (no (unknown) (unknown) 15:30 (units (unkno wn) date) unknown) (unknown) (no (unknown) (unknown) 15:35 02/07/22 (units (unknown) date) unknown) (unknown) (no (unknown) (unknown) 15:40 02/07/22 (units (unknown) date) unknown) (unknown) (no (unknown) (unknown) 15:40 (units (unkno wn) date) unknown) (unknown) (no (unknown) (unknown) 15:45 02/07/22 (units (unknown) date) unknown) (unknown) (no (unknown) (unknown) 15:45 (units (unkno wn) date) unknown) (unknown) (no (unknown) (unknown) 15:50 02/07/22 (units (unknown) date) unknown) (unknown) (no (unknown) (unknown) 15:55 02/07/22 (units (unknown) date) unknown) (unknown) (no (unknown) (unknown) 15:55 (units (unkno wn) date) unknown) (unknown) (no (unknown) (unknown) 16:00 02/07/22 (units (unknown) date) unknown) (unknown) (no (unknown) (unknown) 16:00 (units (unkno wn) date) unknown) (unknown) (no (unknown) (unknown) 16:05 02/07/22 (units (unknown) date) unknown) (unknown) (no (unknown) (unknown) 16:10 02/07/22 (units (unknown) date) unknown) (unknown) (no (unknown) (unknown) 16:10 (units (unkno wn) date) unknown) (unknown) (no (unknown) (unknown) 16:15 02/07/22 (units (unknown) date) unknown) (unknown) (no (unknown) (unknown) 16:15 (units (unkno wn) date) unknown) (unknown) (no (unknown) (unknown) 16:20 02/07/22 (units (unknown) date) unknown) (unknown) (no (unknown) (unknown) 16:20 (units (unkno wn) date) unknown) (unknown) (no (unknown) (unknown) 16:25 02/07/22 (units (unknown) date) unknown) (unknown) (no (unknown) (unknown) 16:30 02/07/22 (units (unknown) date) unknown) (unknown) (no (unknown) (unknown) 16:30 (units (unkno wn) date) unknown) (unknown) (no (unknown) (unknown) 16:35 02/07/22 (units (unknown) date) unknown) (unknown) (no (unknown) (unknown) 16:35 (units (unkno wn) date) unknown) (unknown) (no (unknown) (unknown) 16:40 02/07/22 (units (unknown) date) unknown) (unknown) (no (unknown) (unknown) 16:45 02/07/22 (units (unknown) date) unknown) (unknown) (no (unknown) (unknown) 16:45 (units (unkno wn) date) unknown) (unknown) (no (unknown) (unknown) 16:50 02/07/22 (units (unknown) date) unknown) (unknown) (no (unknown) (unknown) 16:50 (units (unkno wn) date) unknown) (unknown) (no (unknown) (unknown) 17:05 02/07/22 (units (unknown) date) unknown) (unknown) (no (unknown) (unknown) 17:17 02/07/22 (units (unknown) date) unknown) (unknown) (no (unknown) (unknown) 17:27 (units (unkno wn) date) unknown) (unknown) (no (unknown) (unknown) 18:58 (units (unkno wn) date) unknown) (unknown) (no (unknown) (unknown) 8 MCG/MIN (units (unkn own) date) unknown) (unknown) (no (unknown) (unknown) ALT 33 (units (unkno wn) date) unknown) (unknown) (no (unknown) (unknown) ALT (units (unkno wn) date) unknown) (unknown) (no (unknown) (unknown) AST 87 H (units (unkno wn) date) unknown) (unknown) (no (unknown) (unknown) AST (units (unkno wn) date) unknown) (unknown) (no (unknown) (unknown) Adenovirus (PCR) (units (unknown) date) Not detected unknown) (unknown) (no (unknown) (unknown) Adenovirus (PCR) (units (unknown) date) unknown) (unknown) (no (unknown) (unknown) Age/Sex: 31 / F (units (unknown) date) unknown) (unknown) (no (unknown) (unknown) Albumin 3.6 (units (un known) date) unknown) (unknown) (no (unknown) (unknown) Albumin (units (unkno wn) date) unknown) (unknown) (no (unknown) (unknown) Albumin/Globulin (units (unknown) date) Ratio 0.8 L unknown) (unknown) (no (unknown) (unknown) Albumin/Globulin (units (unknown) date) Ratio unknown) (unknown) (no (unknown) (unknown) Alkaline (units (unkno wn) date) Phosphatase 46 unknown) (unknown) (no (unknown) (unknown) Alkaline (units (unkno wn) date) Phosphatase unknown) (unknown) (no (unknown) (unknown) Assessment + Plan (units (unknown) date) narrative: unknown) (unknown) (no (unknown) (unknown) Assessment + Plan (units (unknown) date) unknown) (unknown) (no (unknown) (unknown) Assessment and (units (unknown) date) plan unknown) (unknown) (no (unknown) (unknown) Azithromycin 500 (units (unknown) date) mg/ Dextrose 250 unknown) mls @ 250 mls/hr 02/07/22 15:45 02/07/22 (unknown) (no (unknown) (unknown) B. pertussis DNA (units (unknown) date) (PCR) Not detected unknown) (unknown) (no (unknown) (unknown) B. pertussis DNA (units (unknown) date) (PCR) unknown) (unknown) (no (unknown) (unknown) B.parapertussis (units (unknown) date) DNA PCR Not unknown) detected (unknown) (no (unknown) (unknown) B.parapertussis (units (unknown) date) DNA PCR unknown) (unknown) (no (unknown) (unknown) BUN 14 (units (unkno wn) date) unknown) (unknown) (no (unknown) (unknown) BUN (units (unkno wn) date) unknown) (unknown) (no (unknown) (unknown) BUN/Creatinine (units (unknown) date) Ratio 21.9 unknown) (unknown) (no (unknown) (unknown) BUN/Creatinine (units (unknown) date) Ratio unknown) (unknown) (no (unknown) (unknown) Baso # (Auto) 0 (units (unknown) date) unknown) (unknown) (no (unknown) (unknown) Baso # (Auto) (units ( unknown) date) unknown) (unknown) (no (unknown) (unknown) Baso % (Auto) 0.5 (units (unknown) date) unknown) (unknown) (no (unknown) (unknown) Baso % (Auto) (units ( unknown) date) unknown) (unknown) (no (unknown) (unknown) Blood Pressure (units (unknown) date) 100/ 113/61 unknown) (unknown) (no (unknown) (unknown) Blood Pressure (units (unknown) date) unknown) (unknown) (no (unknown) (unknown) Blood Pressure (units (unknown) date) unknown) (unknown) (no (unknown) (unknown) Blood Pressure (units (unknown) date) unknown) (unknown) (no (unknown) (unknown) Blood Pressure (units (unknown) date) unknown) (unknown) (no (unknown) (unknown) Blood Pressure (units (unknown) date) unknown) (unknown) (no (unknown) (unknown) Blood Pressure (units (unknown) date) 98/64 unknown) (unknown) (no (unknown) (unknown) Blood Pressure (units (unknown) date) 99/ unknown) (unknown) (no (unknown) (unknown) Blood Pressure (units (unknown) date) unknown) (unknown) (no (unknown) (unknown) Blood Pressure (units (unknown) date) unknown) (unknown) (no (unknown) (unknown) Blood Pressure (units (unknown) date) unknown) (unknown) (no (unknown) (unknown) Blood Pressure (units (unknown) date) unknown) (unknown) (no (unknown) (unknown) Blood Pressure (units (unknown) date) 104 unknown) (unknown) (no (unknown) (unknown) Blood Pressure (units (unknown) date) 105 102/ unknown) (unknown) (no (unknown) (unknown) Blood Pressure (units (unknown) date) 105 unknown) (unknown) (no (unknown) (unknown) Blood Pressure (units (unknown) date) 106 103/ unknown) 106/ (unknown) (no (unknown) (unknown) Blood Pressure (units (unknown) date) 106 unknown) (unknown) (no (unknown) (unknown) Blood Pressure (units (unknown) date) 106 99/ unknown) (unknown) (no (unknown) (unknown) Blood Pressure (units (unknown) date) / unknown) (unknown) (no (unknown) (unknown) Blood Pressure (units (unknown) date) 106 unknown) (unknown) (no (unknown) (unknown) Blood Pressure (units (unknown) date) 108/ 110/ unknown) (unknown) (no (unknown) (unknown) Blood Pressure (units (unknown) date) 114/72 unknown) (unknown) (no (unknown) (unknown) Blood Pressure (units (unknown) date) 76/44 L unknown) (unknown) (no (unknown) (unknown) Blood Pressure (units (unknown) date) 85/54 L unknown) (unknown) (no (unknown) (unknown) Blood Pressure (units (unknown) date) 89/56 L 90/58 L unknown) (unknown) (no (unknown) (unknown) Blood Pressure (units (unknown) date) 96/58 L 97/58 L unknown) (unknown) (no (unknown) (unknown) Blood Pressure (units (unknown) date) 96 98/65 unknown) (unknown) (no (unknown) (unknown) Blood Pressure (units (unknown) date) 97 unknown) (unknown) (no (unknown) (unknown) Blood Pressure (units (unknown) date) 97 98/ unknown) (unknown) (no (unknown) (unknown) Blood Pressure (units (unknown) date) 97/66 unknown) (unknown) (no (unknown) (unknown) Blood Pressure (units (unknown) date) 98/59 L unknown) (unknown) (no (unknown) (unknown) Blood Pressure (units (unknown) date) 98/60 97/59 L unknown) (unknown) (no (unknown) (unknown) Blood Pressure (units (unknown) date) unknown) (unknown) (no (unknown) (unknown) Blood Pressure (units (unknown) date) 99/64 unknown) (unknown) (no (unknown) (unknown) Blood Pressure (units (unknown) date) 99 unknown) (unknown) (no (unknown) (unknown) Blood Pressure (units (unknown) date) unknown) (unknown) (no (unknown) (unknown) Blood Pressure (units (unknown) date) 103/72 unknown) (unknown) (no (unknown) (unknown) Blood Pressure (units (unknown) date) unknown) (unknown) (no (unknown) (unknown) CK-MB (CK-2) 2.02 (units (unknown) date) unknown) (unknown) (no (unknown) (unknown) CK-MB (CK-2) Rel (units (unknown) date) Index 0.2 L unknown) (unknown) (no (unknown) (unknown) CK-MB (CK-2) Rel (units (unknown) date) Index unknown) (unknown) (no (unknown) (unknown) CK-MB (CK-2) (units (u nknown) date) unknown) (unknown) (no (unknown) (unknown) Calcium 8.3 L (units ( unknown) date) unknown) (unknown) (no (unknown) (unknown) Calcium (units (unkno wn) date) unknown) (unknown) (no (unknown) (unknown) Carbon Dioxide 23 (units (unknown) date) unknown) (unknown) (no (unknown) (unknown) Carbon Dioxide (units (unknown) date) unknown) (unknown) (no (unknown) (unknown) Chief complaint: (units (unknown) date) she has wounds on unknown) head, not eating, mucas in nose (unknown) (no (unknown) (unknown) Chlamy pneumoniae (units (unknown) date) PCR Not detected unknown) (unknown) (no (unknown) (unknown) Chlamy pneumoniae (units (unknown) date) PCR unknown) (unknown) (no (unknown) (unknown) Chloride 99 (units (un known) date) unknown) (unknown) (no (unknown) (unknown) Chloride (units (unkno wn) date) unknown) (unknown) (no (unknown) (unknown) Consent obtained (units (unknown) date) for unknown) tele-anesthesia assistant care: Yes (unknown) (no (unknown) (unknown) Consult details (units (unknown) date) unknown) (unknown) (no (unknown) (unknown) Coronavirus 229E (units (unknown) date) (PCR) Not detected unknown) (unknown) (no (unknown) (unknown) Coronavirus 229E (units (unknown) date) (PCR) unknown) (unknown) (no (unknown) (unknown) Coronavirus HKU1 (units (unknown) date) (PCR) Not detected unknown) (unknown) (no (unknown) (unknown) Coronavirus HKU1 (units (unknown) date) (PCR) unknown) (unknown) (no (unknown) (unknown) Coronavirus NL63 (units (unknown) date) (PCR) Not detected unknown) (unknown) (no (unknown) (unknown) Coronavirus NL63 (units (unknown) date) (PCR) unknown) (unknown) (no (unknown) (unknown) Coronavirus OC43 (units (unknown) date) (PCR) Not detected unknown) (unknown) (no (unknown) (unknown) Coronavirus OC43 (units (unknown) date) (PCR) unknown) (unknown) (no (unknown) (unknown) Creatinine 0.64 (units (unknown) date) unknown) (unknown) (no (unknown) (unknown) Creatinine (units (unk nown) date) unknown) (unknown) (no (unknown) (unknown) Critical Care (units ( unknown) date) time: unknown) (unknown) (no (unknown) (unknown) Current (units (unkno wn) date) Medications unknown) (unknown) (no (unknown) (unknown) D-Dimer 2351 H (units (unknown) date) unknown) (unknown) (no (unknown) (unknown) D-Dimer (units (unkno wn) date) unknown) (unknown) (no (unknown) (unknown) : 1990 (units (unknown) date) Acct:[id number] unknown) (unknown) (no (unknown) (unknown) Date Patient (units (u nknown) date) Seen: 02/07/22 unknown) (unknown) (no (unknown) (unknown) Date of Service: (units (unknown) date) 02/07/22 unknown) (unknown) (no (unknown) (unknown) Entero/Rhino (units (u nknown) date) (PCR) Not detected unknown) (unknown) (no (unknown) (unknown) Entero/Rhino (units (u nknown) date) (PCR) unknown) (unknown) (no (unknown) (unknown) Eos # (Auto) 0 (units (unknown) date) unknown) (unknown) (no (unknown) (unknown) Eos # (Auto) (units (u nknown) date) unknown) (unknown) (no (unknown) (unknown) Eos % (Auto) 0.0 (units (unknown) date) L unknown) (unknown) (no (unknown) (unknown) Eos % (Auto) (units (u nknown) date) unknown) (unknown) (no (unknown) (unknown) Estimated GFR > (units (unknown) date) 60 unknown) (unknown) (no (unknown) (unknown) Estimated GFR (units ( unknown) date) unknown) (unknown) (no (unknown) (unknown) Exam (units (unkno wn) date) unknown) (unknown) (no (unknown) (unknown) Generic Name Dose (units (unknown) date) Route Start Last unknown) Admin (unknown) (no (unknown) (unknown) Globulin 4.3 H (units (unknown) date) unknown) (unknown) (no (unknown) (unknown) Globulin (units (unkno wn) date) unknown) (unknown) (no (unknown) (unknown) Glucose 113 H (units ( unknown) date) unknown) (unknown) (no (unknown) (unknown) Glucose (units (unkno wn) date) unknown) (unknown) (no (unknown) (unknown) Hct 32.5 L (units (unk nown) date) unknown) (unknown) (no (unknown) (unknown) Hct (units (unkno wn) date) unknown) (unknown) (no (unknown) (unknown) Hgb 10.9 L (units (unk nown) date) unknown) (unknown) (no (unknown) (unknown) Hgb (units (unkno wn) date) unknown) (unknown) (no (unknown) (unknown) 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) (unknown) (no (unknown) (unknown) History of (units (unk nown) date) Present Illness unknown) (unknown) (no (unknown) (unknown) History of (units (unk nown) date) pulmonary embolism unknown) (unknown) (no (unknown) (unknown) Home Medications (units (unknown) date) unknown) (unknown) (no (unknown) (unknown) Human (units (unkno wn) date) Metapneumovir PCR unknown) Not detected (unknown) (no (unknown) (unknown) Human (units (unkno wn) date) Metapneumovir PCR unknown) (unknown) (no (unknown) (unknown) I spent a total (units (unknown) date) of [] minutes of unknown) critical care time on this patient's care (unknown) (no (unknown) (unknown) IV Infused (units (unk nown) date) unknown) (unknown) (no (unknown) (unknown) In the ER, after (units (unknown) date) receiving IVFs had unknown) a drop in her BP thus was placed on (unknown) (no (unknown) (unknown) Influenza A (units (un known) date) (RT-PCR) Flu a unknown) negative (unknown) (no (unknown) (unknown) Influenza A (units (un known) date) (RT-PCR) unknown) (unknown) (no (unknown) (unknown) Influenza B (units (un known) date) (RT-PCR) Flu b unknown) negative (unknown) (no (unknown) (unknown) Influenza B (units (un known) date) (RT-PCR) unknown) (unknown) (no (unknown) (unknown) Influenza Type A (units (unknown) date) (PCR) Not detected unknown) (unknown) (no (unknown) (unknown) Influenza Type A (units (unknown) date) (PCR) unknown) (unknown) (no (unknown) (unknown) Influenza Type B (units (unknown) date) (PCR) Not detected unknown) (unknown) (no (unknown) (unknown) Influenza Type B (units (unknown) date) (PCR) unknown) (unknown) (no (unknown) (unknown) [facility] (units (unknown) date) [address] unknown) [place] [address] (unknown) (no (unknown) (unknown) Laboratory (units (unk nown) date) Results - last 24 unknown) hr (unknown) (no (unknown) (unknown) Labs (units (unkno wn) date) unknown) (unknown) (no (unknown) (unknown) Labs: (units (unkno wn) date) unknown) (unknown) (no (unknown) (unknown) Lactate 1.6 (units (un known) date) unknown) (unknown) (no (unknown) (unknown) Lactate WNL. On (units (unknown) date) Levophed 3 at time unknown) of ICU arrival. (unknown) (no (unknown) (unknown) Lactate (units (unkno wn) date) unknown) (unknown) (no (unknown) (unknown) Levophed IV 3 (units ( unknown) date) mcg/min unknown) (unknown) (no (unknown) (unknown) Levophed. A RIJ (units (unknown) date) CVC was placed. In unknown) the ER, history was mainly obtained from (unknown) (no (unknown) (unknown) Lymph # (Auto) (units (unknown) date) 900 L unknown) (unknown) (no (unknown) (unknown) Lymph # (Auto) (units (unknown) date) unknown) (unknown) (no (unknown) (unknown) Lymph % (Auto) (units (unknown) date) 20.7 L unknown) (unknown) (no (unknown) (unknown) Lymph % (Auto) (units (unknown) date) unknown) (unknown) (no (unknown) (unknown) M. pneumoniae (units ( unknown) date) (PCR) Not detected unknown) (unknown) (no (unknown) (unknown) M. pneumoniae (units ( unknown) date) (PCR) unknown) (unknown) (no (unknown) (unknown) [id number] (units (unk nown) date) unknown) (unknown) (no (unknown) (unknown) MCH 28.7 (units (unkno wn) date) unknown) (unknown) (no (unknown) (unknown) MCH (units (unkno wn) date) unknown) (unknown) (no (unknown) (unknown) MCHC 33.5 (units (unkn own) date) unknown) (unknown) (no (unknown) (unknown) MCHC (units (unkno wn) date) unknown) (unknown) (no (unknown) (unknown) MCV 85.7 (units (unkno wn) date) unknown) (unknown) (no (unknown) (unknown) MCV (units (unkno wn) date) unknown) (unknown) (no (unknown) (unknown) Magnesium 2.1 (units ( unknown) date) unknown) (unknown) (no (unknown) (unknown) Magnesium (units (unkn own) date) unknown) (unknown) (no (unknown) (unknown) Medical History (units (unknown) date) (Updated 02/07/22 unknown) @ 19:26 by Marilu Philip) (unknown) (no (unknown) (unknown) Medications: (units (u nknown) date) unknown) (unknown) (no (unknown) (unknown) Butts # (Auto) 500 (units (unknown) date) unknown) (unknown) (no (unknown) (unknown) Butts # (Auto) (units ( unknown) date) unknown) (unknown) (no (unknown) (unknown) Butts % (Auto) (units ( unknown) date) 10.1 unknown) (unknown) (no (unknown) (unknown) Butts % (Auto) (units ( unknown) date) unknown) (unknown) (no (unknown) (unknown) NOREPINEPHRINE (units (unknown) date) BITARTRATE/D5W 4 unknown) mg in 250 mls @ 30 mls/hr 02/07/22 12:34 (unknown) (no (unknown) (unknown) Narrative: (units (unk nown) date) unknown) (unknown) (no (unknown) (unknown) Neut # (Auto) (units ( unknown) date) 3100 unknown) (unknown) (no (unknown) (unknown) Neut # (Auto) (units ( unknown) date) unknown) (unknown) (no (unknown) (unknown) Neut % (Auto) (units ( unknown) date) 68.7 unknown) (unknown) (no (unknown) (unknown) Neut % (Auto) (units ( unknown) date) unknown) (unknown) (no (unknown) (unknown) Objective (units (unkn own) date) unknown) (unknown) (no (unknown) (unknown) Other (units (unkno wn) date) participants/roles unknown) : RN (unknown) (no (unknown) (unknown) Oxygen Delivery (units (unknown) date) Method Room Air unknown) (unknown) (no (unknown) (unknown) Oxygen Delivery (units (unknown) date) Method unknown) (unknown) (no (unknown) (unknown) Oxygen Flow Rate (units (unknown) date) 0 unknown) (unknown) (no (unknown) (unknown) Oxygen Flow Rate (units (unknown) date) unknown) (unknown) (no (unknown) (unknown) PFSH (units (unkno wn) date) unknown) (unknown) (no (unknown) (unknown) Parainfluenza 1 (units (unknown) date) (PCR) Not detected unknown) (unknown) (no (unknown) (unknown) Parainfluenza 1 (units (unknown) date) (PCR) unknown) (unknown) (no (unknown) (unknown) Parainfluenza 2 (units (unknown) date) (PCR) Not detected unknown) (unknown) (no (unknown) (unknown) Parainfluenza 2 (units (unknown) date) (PCR) unknown) (unknown) (no (unknown) (unknown) Parainfluenza 3 (units (unknown) date) (PCR) Not detected unknown) (unknown) (no (unknown) (unknown) Parainfluenza 3 (units (unknown) date) (PCR) unknown) (unknown) (no (unknown) (unknown) Parainfluenza 4 (units (unknown) date) (PCR) Not detected unknown) (unknown) (no (unknown) (unknown) Parainfluenza 4 (units (unknown) date) (PCR) unknown) (unknown) (no (unknown) (unknown) Patient Location: (units (unknown) date) ICU unknown) (unknown) (no (unknown) (unknown) Patient is a 31F (units (unknown) date) with a PMH of unknown) Schizophrenia, PE (previousy on AC many years (unknown) (no (unknown) (unknown) Patient received (units (unknown) date) Vanc, Zosyn, unknown) Azithromycin. CTA w/o PE. UA without infection. (unknown) (no (unknown) (unknown) Patient: (units (unkno wn) date) Vanessa [place] unknown) B MR#: (unknown) (no (unknown) (unknown) Plan: (units (unkno wn) date) unknown) (unknown) (no (unknown) (unknown) Plt Count 155 (units ( unknown) date) unknown) (unknown) (no (unknown) (unknown) Plt Count (units (unkn own) date) unknown) (unknown) (no (unknown) (unknown) Potassium 3.6 (units ( unknown) date) unknown) (unknown) (no (unknown) (unknown) Potassium (units (unkn own) date) unknown) (unknown) (no (unknown) (unknown) Procalcitonin (units ( unknown) date) 1.08 H unknown) (unknown) (no (unknown) (unknown) Procalcitonin (units ( unknown) date) unknown) (unknown) (no (unknown) (unknown) Protocol (units (unkno wn) date) unknown) (unknown) (no (unknown) (unknown) Provider location (units (unknown) date) (State): [place] unknown) (unknown) (no (unknown) (unknown) Provider: (units (unkn own) date) Marilu Philip unknown) (unknown) (no (unknown) (unknown) Pulse Oximetry (units (unknown) date) 100 100 unknown) (unknown) (no (unknown) (unknown) Pulse Oximetry (units (unknown) date) 100 99 unknown) (unknown) (no (unknown) (unknown) Pulse Oximetry (units (unknown) date) 100 unknown) (unknown) (no (unknown) (unknown) Pulse Oximetry 98 (units (unknown) date) 100 unknown) (unknown) (no (unknown) (unknown) Pulse Oximetry 98 (units (unknown) date) 96 unknown) (unknown) (no (unknown) (unknown) Pulse Oximetry 98 (units (unknown) date) 98 unknown) (unknown) (no (unknown) (unknown) Pulse Oximetry 98 (units (unknown) date) 99 unknown) (unknown) (no (unknown) (unknown) Pulse Oximetry 98 (units (unknown) date) unknown) (unknown) (no (unknown) (unknown) Pulse Oximetry 99 (units (unknown) date) 98 unknown) (unknown) (no (unknown) (unknown) Pulse Oximetry 99 (units (unknown) date) 99 unknown) (unknown) (no (unknown) (unknown) Pulse Oximetry 99 (units (unknown) date) unknown) (unknown) (no (unknown) (unknown) Pulse Rate 100 H (units (unknown) date) unknown) (unknown) (no (unknown) (unknown) Pulse Rate 65 (units ( unknown) date) unknown) (unknown) (no (unknown) (unknown) Pulse Rate 67 64 (units (unknown) date) unknown) (unknown) (no (unknown) (unknown) Pulse Rate 67 65 (units (unknown) date) unknown) (unknown) (no (unknown) (unknown) Pulse Rate 67 77 (units (unknown) date) unknown) (unknown) (no (unknown) (unknown) Pulse Rate 68 69 (units (unknown) date) unknown) (unknown) (no (unknown) (unknown) Pulse Rate 68 (units ( unknown) date) unknown) (unknown) (no (unknown) (unknown) Pulse Rate 69 (units ( unknown) date) unknown) (unknown) (no (unknown) (unknown) Pulse Rate 70 72 (units (unknown) date) unknown) (unknown) (no (unknown) (unknown) Pulse Rate 70 (units ( unknown) date) unknown) (unknown) (no (unknown) (unknown) Pulse Rate 71 (units ( unknown) date) unknown) (unknown) (no (unknown) (unknown) Pulse Rate 72 71 (units (unknown) date) unknown) (unknown) (no (unknown) (unknown) Pulse Rate 72 72 (units (unknown) date) unknown) (unknown) (no (unknown) (unknown) Pulse Rate 73 79 (units (unknown) date) unknown) (unknown) (no (unknown) (unknown) Pulse Rate 73 (units ( unknown) date) unknown) (unknown) (no (unknown) (unknown) Pulse Rate 74 74 (units (unknown) date) unknown) (unknown) (no (unknown) (unknown) Pulse Rate 75 (units ( unknown) date) unknown) (unknown) (no (unknown) (unknown) Pulse Rate 77 71 (units (unknown) date) unknown) (unknown) (no (unknown) (unknown) Pulse Rate 77 (units ( unknown) date) unknown) (unknown) (no (unknown) (unknown) Pulse Rate 78 63 (units (unknown) date) unknown) (unknown) (no (unknown) (unknown) Pulse Rate 78 (units ( unknown) date) unknown) (unknown) (no (unknown) (unknown) Pulse Rate 79 79 (units (unknown) date) unknown) (unknown) (no (unknown) (unknown) Pulse Rate 79 (units ( unknown) date) unknown) (unknown) (no (unknown) (unknown) Pulse Rate 80 79 (units (unknown) date) unknown) (unknown) (no (unknown) (unknown) Pulse Rate 80 81 (units (unknown) date) unknown) (unknown) (no (unknown) (unknown) Pulse Rate 80 (units ( unknown) date) unknown) (unknown) (no (unknown) (unknown) Pulse Rate 81 70 (units (unknown) date) unknown) (unknown) (no (unknown) (unknown) Pulse Rate 83 (units ( unknown) date) unknown) (unknown) (no (unknown) (unknown) Pulse Rate 89 79 (units (unknown) date) unknown) (unknown) (no (unknown) (unknown) Pulse Rate 89 80 (units (unknown) date) unknown) (unknown) (no (unknown) (unknown) Pulse Rate 89 (units ( unknown) date) unknown) (unknown) (no (unknown) (unknown) Pulse Rate 90 90 (units (unknown) date) unknown) (unknown) (no (unknown) (unknown) Pulse Rate 91 H (units (unknown) date) 99 H unknown) (unknown) (no (unknown) (unknown) Pulse Rate 93 H (units (unknown) date) unknown) (unknown) (no (unknown) (unknown) Pulse Rate 95 H (units (unknown) date) unknown) (unknown) (no (unknown) (unknown) Q24H [facility] Infusion (units (unknown) date) unknown) (unknown) (no (unknown) (unknown) Q8H [facility] (units (unkno wn) date) Administration unknown) (unknown) (no (unknown) (unknown) RBC 3.79 L (units (unk nown) date) unknown) (unknown) (no (unknown) (unknown) RBC (units (unkno wn) date) unknown) (unknown) (no (unknown) (unknown) RDW 14.1 (units (unkno wn) date) unknown) (unknown) (no (unknown) (unknown) RDW (units (unkno wn) date) unknown) (unknown) (no (unknown) (unknown) RSV (PCR) (units (unkn own) date) Negative unknown) (unknown) (no (unknown) (unknown) RSV (PCR) Not (units ( unknown) date) detected unknown) (unknown) (no (unknown) (unknown) RSV (PCR) (units (unkn own) date) unknown) (unknown) (no (unknown) (unknown) Respiratory Rate (units (unknown) date) 17 unknown) (unknown) (no (unknown) (unknown) Respiratory Rate (units (unknown) date) 19 unknown) (unknown) (no (unknown) (unknown) Respiratory Rate (units (unknown) date) 21 unknown) (unknown) (no (unknown) (unknown) Respiratory Rate (units (unknown) date) 24 unknown) (unknown) (no (unknown) (unknown) Respiratory Rate (units (unknown) date) 25 H 20 unknown) (unknown) (no (unknown) (unknown) Respiratory Rate (units (unknown) date) 25 H 36 H unknown) (unknown) (no (unknown) (unknown) Respiratory Rate (units (unknown) date) 25 H unknown) (unknown) (no (unknown) (unknown) Respiratory Rate (units (unknown) date) 26 H unknown) (unknown) (no (unknown) (unknown) Respiratory Rate (units (unknown) date) 27 H 29 H unknown) (unknown) (no (unknown) (unknown) Respiratory Rate (units (unknown) date) 27 H unknown) (unknown) (no (unknown) (unknown) Respiratory Rate (units (unknown) date) 28 H 16 unknown) (unknown) (no (unknown) (unknown) Respiratory Rate (units (unknown) date) 28 H 26 H unknown) (unknown) (no (unknown) (unknown) Respiratory Rate (units (unknown) date) 28 H 28 H unknown) (unknown) (no (unknown) (unknown) Respiratory Rate (units (unknown) date) 28 H 29 H unknown) (unknown) (no (unknown) (unknown) Respiratory Rate (units (unknown) date) 29 H 26 H unknown) (unknown) (no (unknown) (unknown) Respiratory Rate (units (unknown) date) 29 H unknown) (unknown) (no (unknown) (unknown) Respiratory Rate (units (unknown) date) 30 H 28 H unknown) (unknown) (no (unknown) (unknown) Respiratory Rate (units (unknown) date) 30 H 31 H unknown) (unknown) (no (unknown) (unknown) Respiratory Rate (units (unknown) date) 30 H 32 H unknown) (unknown) (no (unknown) (unknown) Respiratory Rate (units (unknown) date) 30 H unknown) (unknown) (no (unknown) (unknown) Respiratory Rate (units (unknown) date) 31 H 26 H unknown) (unknown) (no (unknown) (unknown) Respiratory Rate (units (unknown) date) 31 H 28 H unknown) (unknown) (no (unknown) (unknown) Respiratory Rate (units (unknown) date) 31 H 30 H unknown) (unknown) (no (unknown) (unknown) Respiratory Rate (units (unknown) date) 31 H unknown) (unknown) (no (unknown) (unknown) Respiratory Rate (units (unknown) date) 32 H 30 H unknown) (unknown) (no (unknown) (unknown) Respiratory Rate (units (unknown) date) 32 H unknown) (unknown) (no (unknown) (unknown) Respiratory Rate (units (unknown) date) 34 H 18 unknown) (unknown) (no (unknown) (unknown) Respiratory Rate (units (unknown) date) 34 H 20 unknown) (unknown) (no (unknown) (unknown) Respiratory Rate (units (unknown) date) unknown) (unknown) (no (unknown) (unknown) Result Diagrams: (units (unknown) date) unknown) (unknown) (no (unknown) (unknown) SARS-CoV-2 (PCR) (units (unknown) date) Negative unknown) (unknown) (no (unknown) (unknown) SARS-CoV-2 (PCR) (units (unknown) date) Not detected unknown) (unknown) (no (unknown) (unknown) SARS-CoV-2 (PCR) (units (unknown) date) unknown) (unknown) (no (unknown) (unknown) Schizophrenia (units ( unknown) date) unknown) (unknown) (no (unknown) (unknown) Signed By: (units (unk nown) date) unknown) (unknown) (no (unknown) (unknown) Smoking Status: (units (unknown) date) Never smoker unknown) (unknown) (no (unknown) (unknown) Social History (units (unknown) date) unknown) (unknown) (no (unknown) (unknown) Sodium 134 L (units (u nknown) date) unknown) (unknown) (no (unknown) (unknown) Sodium (units (unkno wn) date) unknown) (unknown) (no (unknown) (unknown) Status: Acute (units ( unknown) date) unknown) (unknown) (no (unknown) (unknown) TITRATE [facility] 11.25 (units (unknown) date) mls/hr unknown) (unknown) (no (unknown) (unknown) 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 (units (unknown) date) Consult Note unknown) (unknown) (no (unknown) (unknown) Temperature 100.4 (units (unknown) date) F H 100.0 F H unknown) (unknown) (no (unknown) (unknown) Temperature 100.6 (units (unknown) date) F H unknown) (unknown) (no (unknown) (unknown) Temperature 98.2 (units (unknown) date) F unknown) (unknown) (no (unknown) (unknown) Temperature 98.4 (units (unknown) date) F 98.2 F unknown) (unknown) (no (unknown) (unknown) Temperature 98.4 (units (unknown) date) F 98.4 F unknown) (unknown) (no (unknown) (unknown) Temperature 98.4 (units (unknown) date) F 98.6 F unknown) (unknown) (no (unknown) (unknown) Temperature 98.4 (units (unknown) date) F unknown) (unknown) (no (unknown) (unknown) Temperature 98.6 (units (unknown) date) F 98.6 F unknown) (unknown) (no (unknown) (unknown) Temperature 98.6 (units (unknown) date) F unknown) (unknown) (no (unknown) (unknown) Temperature 98.8 (units (unknown) date) F 98.6 F unknown) (unknown) (no (unknown) (unknown) Temperature 98.8 (units (unknown) date) F unknown) (unknown) (no (unknown) (unknown) Temperature 99.0 (units (unknown) date) F 99.0 F unknown) (unknown) (no (unknown) (unknown) Temperature 99.0 (units (unknown) date) F unknown) (unknown) (no (unknown) (unknown) Temperature 99.1 (units (unknown) date) F 99.1 F unknown) (unknown) (no (unknown) (unknown) Temperature 99.1 (units (unknown) date) F unknown) (unknown) (no (unknown) (unknown) Temperature 99.3 (units (unknown) date) F unknown) (unknown) (no (unknown) (unknown) Temperature 99.7 (units (unknown) date) F H unknown) (unknown) (no (unknown) (unknown) Temperature 99.9 (units (unknown) date) F H 99.9 F H unknown) (unknown) (no (unknown) (unknown) Temperature (units (un known) date) unknown) (unknown) (no (unknown) (unknown) Time Spent With (units (unknown) date) Patient unknown) (unknown) (no (unknown) (unknown) Titration (units (unkn own) date) unknown) (unknown) (no (unknown) (unknown) Total Bilirubin (units (unknown) date) 0.5 unknown) (unknown) (no (unknown) (unknown) Total Bilirubin (units (unknown) date) unknown) (unknown) (no (unknown) (unknown) Total Creatine (units (unknown) date) Kinase 825 H unknown) (unknown) (no (unknown) (unknown) Total Creatine (units (unknown) date) Kinase unknown) (unknown) (no (unknown) (unknown) Total Protein 7.9 (units (unknown) date) unknown) (unknown) (no (unknown) (unknown) Total Protein (units ( unknown) date) unknown) (unknown) (no (unknown) (unknown) Trade Name Freq (units (unknown) date) PRN Reason Stop unknown) Dose Admin (unknown) (no (unknown) (unknown) Troponin I < (units (u nknown) date) 0.012 unknown) (unknown) (no (unknown) (unknown) Troponin I (units (unk nown) date) unknown) (unknown) (no (unknown) (unknown) Ur Culture (units (unk nown) date) Indicated? Cult unknown) not indicated (unknown) (no (unknown) (unknown) Ur Culture (units (unk nown) date) Indicated? unknown) (unknown) (no (unknown) (unknown) Ur Squamous Epith (units (unknown) date) Cells 1-5 /hpf unknown) (unknown) (no (unknown) (unknown) Ur Squamous Epith (units (unknown) date) Cells unknown) (unknown) (no (unknown) (unknown) Ur Transition (units ( unknown) date) Epith Cell 0-1/hpf unknown) (unknown) (no (unknown) (unknown) Ur Transition (units ( unknown) date) Epith Cell unknown) (unknown) (no (unknown) (unknown) Urine Bacteria (units (unknown) date) None seen unknown) (unknown) (no (unknown) (unknown) Urine Bacteria (units (unknown) date) unknown) (unknown) (no (unknown) (unknown) Urine (units (unknown) date) Test Negative unknown) (unknown) (no (unknown) (unknown) Urine (units (unknown) date) Test unknown) (unknown) (no (unknown) (unknown) Urine RBC None (units (unknown) date) seen unknown) (unknown) (no (unknown) (unknown) Urine RBC (units (unkn own) date) unknown) (unknown) (no (unknown) (unknown) Urine WBC 1-5/hpf (units (unknown) date) unknown) (unknown) (no (unknown) (unknown) Urine WBC (units (unkn own) date) unknown) (unknown) (no (unknown) (unknown) Vancomycin HCl (units (unknown) date) 750 mg in 150 mls unknown) @ 150 mls/hr 02/07/22 18:00 02/07/22 18:30 (unknown) (no (unknown) (unknown) Vancomycin IV 150 (units (unknown) date) mls/hr unknown) (unknown) (no (unknown) (unknown) Visit Medications (units (unknown) date) (administered) unknown) (unknown) (no (unknown) (unknown) Vital Signs (units (un known) date) unknown) (unknown) (no (unknown) (unknown) WBC 4.5 (units (unkno wn) date) unknown) (unknown) (no (unknown) (unknown) WBC (units (unkno wn) date) unknown) (unknown) (no (unknown) (unknown) [Embedded Image (units (unknown) date) Not Available] unknown) (unknown) (no (unknown) (unknown) ago, IVC filter - (units (unknown) date) unclear if unknown) removed) who was admitted to the ICU this evening (unknown) (no (unknown) (unknown) and skin (units (unkno wn) date) infection. Had unknown) recently been placed on Keflex by outside hospital/ENT? 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 (unknown) (no (unknown) (unknown) today; this time (units (unknown) date) is exclusive of unknown) procedural time. (unknown) (no (unknown) (unknown) with c/f septic (units (unknown) date) shock. Per unknown) Hospitalist report, patient presented with fevers Result panel 465 (unknown) (no (unknown) (unknown) (no value) (units (unk nown) date) unknown) (unknown) (no (unknown) (unknown) (1) Septic shock: (units (unknown) date) unknown) (unknown) (no (unknown) (unknown) (2) Soft tissue (units (unknown) date) infection: unknown) (unknown) (no (unknown) (unknown) (3) (units (unkno wn) date) Schizophrenia: unknown) (unknown) (no (unknown) (unknown) (past 8 hours): (units (unknown) date) unknown) (unknown) (no (unknown) (unknown) - Consider (units (unk nown) date) additional IVF unknown) bolus if unable to get off of Levophed by morning (unknown) (no (unknown) (unknown) - Continue (units (unk nown) date) Levophed, titrated unknown) to MAP goal >65 (unknown) (no (unknown) (unknown) - Continue Vanc, (units (unknown) date) Zosyn, unknown) Azithromycin (unknown) (no (unknown) (unknown) - Continue home (units (unknown) date) Psych meds unknown) (unknown) (no (unknown) (unknown) - DC R IJ CVC (units ( unknown) date) when off pressors unknown) (unknown) (no (unknown) (unknown) - Follow up (units (un known) date) cultures, MRSA unknown) swab (unknown) (no (unknown) (unknown) - If persistent (units (unknown) date) sepsis, may need unknown) to further explore sinusitis/abscesse s in (unknown) (no (unknown) (unknown) - If remains on (units (unknown) date) Levophed tomorrow, unknown) would obtain TTE (unknown) (no (unknown) (unknown) - Monitor UOP, (units (unknown) date) goal is unknown) >0.5cc/kg/hour (unknown) (no (unknown) (unknown) - PRN Zyprexa v (units (unknown) date) Haldol for severe unknown) agitation. Would monitor EKG/QTc (unknown) (no (unknown) (unknown) - Psychiatry was (units (unknown) date) consulted in the unknown) ER (unknown) (no (unknown) (unknown) - Regular diet (units (unknown) date) unknown) (unknown) (no (unknown) (unknown) - VTE PPx with (units (unknown) date) Lovenox unknown) (unknown) (no (unknown) (unknown) 08:22 08:22 08:22 (units (unknown) date) unknown) (unknown) (no (unknown) (unknown) 08:27 08:27 08:27 (units (unknown) date) unknown) (unknown) (no (unknown) (unknown) 08:27 08:42 09:20 (units (unknown) date) unknown) (unknown) (no (unknown) (unknown) 09:20 12:00 (units (un known) date) unknown) (unknown) (no (unknown) (unknown) 11:30 02/07/22 (units (unknown) date) unknown) (unknown) (no (unknown) (unknown) 02/07/22 08:27 (units (unknown) date) unknown) (unknown) (no (unknown) (unknown) 02/07/22 02/07/22 (units (unknown) date) 02/07/22 unknown) (unknown) (no (unknown) (unknown) 02/07/22 02/07/22 (units (unknown) date) unknown) (unknown) (no (unknown) (unknown) 02/07/22 13:24 (units (unknown) date) unknown) (unknown) (no (unknown) (unknown) 02/07/22 (units (unkno wn) date) unknown) (unknown) (no (unknown) (unknown) 02/07/22] (units (unkn own) date) unknown) (unknown) (no (unknown) (unknown) 12:00 02/07/22 (units (unknown) date) unknown) (unknown) (no (unknown) (unknown) 12:00 (units (unkno wn) date) unknown) (unknown) (no (unknown) (unknown) 12:30 02/07/22 (units (unknown) date) unknown) (unknown) (no (unknown) (unknown) 12:30 (units (unkno wn) date) unknown) (unknown) (no (unknown) (unknown) 12:33 02/07/22 (units (unknown) date) unknown) (unknown) (no (unknown) (unknown) 12:37 02/07/22 (units (unknown) date) unknown) (unknown) (no (unknown) (unknown) 12:37 (units (unkno wn) date) unknown) (unknown) (no (unknown) (unknown) 12:40 02/07/22 (units (unknown) date) unknown) (unknown) (no (unknown) (unknown) 12:40 (units (unkno wn) date) unknown) (unknown) (no (unknown) (unknown) 12:52 02/07/22 (units (unknown) date) unknown) (unknown) (no (unknown) (unknown) 13:00 12/12/22 (units (unknown) date) unknown) (unknown) (no (unknown) (unknown) 13:00 (units (unkno wn) date) unknown) (unknown) (no (unknown) (unknown) 13:01 02/07/22 (units (unknown) date) unknown) (unknown) (no (unknown) (unknown) 13:01 (units (unkno wn) date) unknown) (unknown) (no (unknown) (unknown) 13:05 02/07/22 (units (unknown) date) unknown) (unknown) (no (unknown) (unknown) 13:10 02/07/22 (units (unknown) date) unknown) (unknown) (no (unknown) (unknown) 13:10 (units (unkno wn) date) unknown) (unknown) (no (unknown) (unknown) 13:15 02/07/22 (units (unknown) date) unknown) (unknown) (no (unknown) (unknown) 13:15 (units (unkno wn) date) unknown) (unknown) (no (unknown) (unknown) 13:20 02/07/22 (units (unknown) date) unknown) (unknown) (no (unknown) (unknown) 13:25 02/07/22 (units (unknown) date) unknown) (unknown) (no (unknown) (unknown) 13:25 (units (unkno wn) date) unknown) (unknown) (no (unknown) (unknown) 13:30 02/07/22 (units (unknown) date) unknown) (unknown) (no (unknown) (unknown) 13:30 (units (unkno wn) date) unknown) (unknown) (no (unknown) (unknown) 13:35 02/07/22 (units (unknown) date) unknown) (unknown) (no (unknown) (unknown) 13:40 02/07/22 (units (unknown) date) unknown) (unknown) (no (unknown) (unknown) 13:40 (units (unkno wn) date) unknown) (unknown) (no (unknown) (unknown) 13:45 02/07/22 (units (unknown) date) unknown) (unknown) (no (unknown) (unknown) 13:45 (units (unkno wn) date) unknown) (unknown) (no (unknown) (unknown) 13:50 02/07/22 (units (unknown) date) unknown) (unknown) (no (unknown) (unknown) 13:55 02/07/22 (units (unknown) date) unknown) (unknown) (no (unknown) (unknown) 13:55 (units (unkno wn) date) unknown) (unknown) (no (unknown) (unknown) 14:00 02/07/22 (units (unknown) date) unknown) (unknown) (no (unknown) (unknown) 14:00 (units (unkno wn) date) unknown) (unknown) (no (unknown) (unknown) 14:05 02/07/22 (units (unknown) date) unknown) (unknown) (no (unknown) (unknown) 14:10 02/07/22 (units (unknown) date) unknown) (unknown) (no (unknown) (unknown) 14:10 (units (unkno wn) date) unknown) (unknown) (no (unknown) (unknown) 14:15 02/07/22 (units (unknown) date) unknown) (unknown) (no (unknown) (unknown) 14:15 (units (unkno wn) date) unknown) (unknown) (no (unknown) (unknown) 14:20 02/07/22 (units (unknown) date) unknown) (unknown) (no (unknown) (unknown) 14:25 02/07/22 (units (unknown) date) unknown) (unknown) (no (unknown) (unknown) 14:25 (units (unkno wn) date) unknown) (unknown) (no (unknown) (unknown) 14:30 02/07/22 (units (unknown) date) unknown) (unknown) (no (unknown) (unknown) 14:30 (units (unkno wn) date) unknown) (unknown) (no (unknown) (unknown) 14:35 02/07/22 (units (unknown) date) unknown) (unknown) (no (unknown) (unknown) 14:40 02/07/22 (units (unknown) date) unknown) (unknown) (no (unknown) (unknown) 14:40 (units (unkno wn) date) unknown) (unknown) (no (unknown) (unknown) 14:45 02/07/22 (units (unknown) date) unknown) (unknown) (no (unknown) (unknown) 14:45 (units (unkno wn) date) unknown) (unknown) (no (unknown) (unknown) 14:50 02/07/22 (units (unknown) date) unknown) (unknown) (no (unknown) (unknown) 14:55 02/07/22 (units (unknown) date) unknown) (unknown) (no (unknown) (unknown) 14:55 (units (unkno wn) date) unknown) (unknown) (no (unknown) (unknown) 15:00 02/07/22 (units (unknown) date) unknown) (unknown) (no (unknown) (unknown) 15:00 (units (unkno wn) date) unknown) (unknown) (no (unknown) (unknown) 15:05 02/07/22 (units (unknown) date) unknown) (unknown) (no (unknown) (unknown) 15:10 02/07/22 (units (unknown) date) unknown) (unknown) (no (unknown) (unknown) 15:10 (units (unkno wn) date) unknown) (unknown) (no (unknown) (unknown) 15:15 02/07/22 (units (unknown) date) unknown) (unknown) (no (unknown) (unknown) 15:15 (units (unkno wn) date) unknown) (unknown) (no (unknown) (unknown) 15:20 02/07/22 (units (unknown) date) unknown) (unknown) (no (unknown) (unknown) 15:25 02/07/22 (units (unknown) date) unknown) (unknown) (no (unknown) (unknown) 15:25 (units (unkno wn) date) unknown) (unknown) (no (unknown) (unknown) 15:30 02/07/22 (units (unknown) date) unknown) (unknown) (no (unknown) (unknown) 15:30 (units (unkno wn) date) unknown) (unknown) (no (unknown) (unknown) 15:35 02/07/22 (units (unknown) date) unknown) (unknown) (no (unknown) (unknown) 15:40 02/07/22 (units (unknown) date) unknown) (unknown) (no (unknown) (unknown) 15:40 (units (unkno wn) date) unknown) (unknown) (no (unknown) (unknown) 15:45 02/07/22 (units (unknown) date) unknown) (unknown) (no (unknown) (unknown) 15:45 (units (unkno wn) date) unknown) (unknown) (no (unknown) (unknown) 15:50 02/07/22 (units (unknown) date) unknown) (unknown) (no (unknown) (unknown) 15:55 02/07/22 (units (unknown) date) unknown) (unknown) (no (unknown) (unknown) 15:55 (units (unkno wn) date) unknown) (unknown) (no (unknown) (unknown) 16:00 02/07/22 (units (unknown) date) unknown) (unknown) (no (unknown) (unknown) 16:00 (units (unkno wn) date) unknown) (unknown) (no (unknown) (unknown) 16:05 02/07/22 (units (unknown) date) unknown) (unknown) (no (unknown) (unknown) 16:10 02/07/22 (units (unknown) date) unknown) (unknown) (no (unknown) (unknown) 16:10 (units (unkno wn) date) unknown) (unknown) (no (unknown) (unknown) 16:15 02/07/22 (units (unknown) date) unknown) (unknown) (no (unknown) (unknown) 16:15 (units (unkno wn) date) unknown) (unknown) (no (unknown) (unknown) 16:20 02/07/22 (units (unknown) date) unknown) (unknown) (no (unknown) (unknown) 16:20 (units (unkno wn) date) unknown) (unknown) (no (unknown) (unknown) 16:25 02/07/22 (units (unknown) date) unknown) (unknown) (no (unknown) (unknown) 16:30 02/07/22 (units (unknown) date) unknown) (unknown) (no (unknown) (unknown) 16:30 (units (unkno wn) date) unknown) (unknown) (no (unknown) (unknown) 16:35 02/07/22 (units (unknown) date) unknown) (unknown) (no (unknown) (unknown) 16:35 (units (unkno wn) date) unknown) (unknown) (no (unknown) (unknown) 16:40 02/07/22 (units (unknown) date) unknown) (unknown) (no (unknown) (unknown) 16:45 02/07/22 (units (unknown) date) unknown) (unknown) (no (unknown) (unknown) 16:45 (units (unkno wn) date) unknown) (unknown) (no (unknown) (unknown) 16:50 02/07/22 (units (unknown) date) unknown) (unknown) (no (unknown) (unknown) 16:50 (units (unkno wn) date) unknown) (unknown) (no (unknown) (unknown) 17:05 02/07/22 (units (unknown) date) unknown) (unknown) (no (unknown) (unknown) 17:17 02/07/22 (units (unknown) date) unknown) (unknown) (no (unknown) (unknown) 17:27 (units (unkno wn) date) unknown) (unknown) (no (unknown) (unknown) 18:58 (units (unkno wn) date) unknown) (unknown) (no (unknown) (unknown) 8 MCG/MIN (units (unkn own) date) unknown) (unknown) (no (unknown) (unknown) ALT 33 (units (unkno wn) date) unknown) (unknown) (no (unknown) (unknown) ALT (units (unkno wn) date) unknown) (unknown) (no (unknown) (unknown) AST 87 H (units (unkno wn) date) unknown) (unknown) (no (unknown) (unknown) AST (units (unkno wn) date) unknown) (unknown) (no (unknown) (unknown) Adenovirus (PCR) (units (unknown) date) Not detected unknown) (unknown) (no (unknown) (unknown) Adenovirus (PCR) (units (unknown) date) unknown) (unknown) (no (unknown) (unknown) Age/Sex: 31 / F (units (unknown) date) unknown) (unknown) (no (unknown) (unknown) Albumin 3.6 (units (un known) date) unknown) (unknown) (no (unknown) (unknown) Albumin (units (unkno wn) date) unknown) (unknown) (no (unknown) (unknown) Albumin/Globulin (units (unknown) date) Ratio 0.8 L unknown) (unknown) (no (unknown) (unknown) Albumin/Globulin (units (unknown) date) Ratio unknown) (unknown) (no (unknown) (unknown) Alkaline (units (unkno wn) date) Phosphatase 46 unknown) (unknown) (no (unknown) (unknown) Alkaline (units (unkno wn) date) Phosphatase unknown) (unknown) (no (unknown) (unknown) Assessment + Plan (units (unknown) date) narrative: unknown) (unknown) (no (unknown) (unknown) Assessment + Plan (units (unknown) date) unknown) (unknown) (no (unknown) (unknown) Assessment and (units (unknown) date) plan unknown) (unknown) (no (unknown) (unknown) Azithromycin 500 (units (unknown) date) mg/ Dextrose 250 unknown) mls @ 250 mls/hr 02/07/22 15:45 02/07/22 (unknown) (no (unknown) (unknown) B. pertussis DNA (units (unknown) date) (PCR) Not detected unknown) (unknown) (no (unknown) (unknown) B. pertussis DNA (units (unknown) date) (PCR) unknown) (unknown) (no (unknown) (unknown) B.parapertussis (units (unknown) date) DNA PCR Not unknown) detected (unknown) (no (unknown) (unknown) B.parapertussis (units (unknown) date) DNA PCR unknown) (unknown) (no (unknown) (unknown) BUN 14 (units (unkno wn) date) unknown) (unknown) (no (unknown) (unknown) BUN (units (unkno wn) date) unknown) (unknown) (no (unknown) (unknown) BUN/Creatinine (units (unknown) date) Ratio 21.9 unknown) (unknown) (no (unknown) (unknown) BUN/Creatinine (units (unknown) date) Ratio unknown) (unknown) (no (unknown) (unknown) Baso # (Auto) 0 (units (unknown) date) unknown) (unknown) (no (unknown) (unknown) Baso # (Auto) (units ( unknown) date) unknown) (unknown) (no (unknown) (unknown) Baso % (Auto) 0.5 (units (unknown) date) unknown) (unknown) (no (unknown) (unknown) Baso % (Auto) (units ( unknown) date) unknown) (unknown) (no (unknown) (unknown) Blood Pressure (units (unknown) date) 100 113/61 unknown) (unknown) (no (unknown) (unknown) Blood Pressure (units (unknown) date) unknown) (unknown) (no (unknown) (unknown) Blood Pressure (units (unknown) date) unknown) (unknown) (no (unknown) (unknown) Blood Pressure (units (unknown) date) unknown) (unknown) (no (unknown) (unknown) Blood Pressure (units (unknown) date) unknown) (unknown) (no (unknown) (unknown) Blood Pressure (units (unknown) date) unknown) (unknown) (no (unknown) (unknown) Blood Pressure (units (unknown) date) / unknown) (unknown) (no (unknown) (unknown) Blood Pressure (units (unknown) date) unknown) (unknown) (no (unknown) (unknown) Blood Pressure (units (unknown) date) unknown) (unknown) (no (unknown) (unknown) Blood Pressure (units (unknown) date) unknown) (unknown) (no (unknown) (unknown) Blood Pressure (units (unknown) date) unknown) (unknown) (no (unknown) (unknown) Blood Pressure (units (unknown) date) unknown) (unknown) (no (unknown) (unknown) Blood Pressure (units (unknown) date) unknown) (unknown) (no (unknown) (unknown) Blood Pressure (units (unknown) date) unknown) (unknown) (no (unknown) (unknown) Blood Pressure (units (unknown) date) unknown) (unknown) (no (unknown) (unknown) Blood Pressure (units (unknown) date) / unknown) (unknown) (no (unknown) (unknown) Blood Pressure (units (unknown) date) unknown) (unknown) (no (unknown) (unknown) Blood Pressure (units (unknown) date) 106/70 99/62 unknown) (unknown) (no (unknown) (unknown) Blood Pressure (units (unknown) date) 106/71 103/70 unknown) (unknown) (no (unknown) (unknown) Blood Pressure (units (unknown) date) 106/71 unknown) (unknown) (no (unknown) (unknown) Blood Pressure (units (unknown) date) 108/70 110/71 unknown) (unknown) (no (unknown) (unknown) Blood Pressure (units (unknown) date) 114/72 unknown) (unknown) (no (unknown) (unknown) Blood Pressure (units (unknown) date) 76/44 L unknown) (unknown) (no (unknown) (unknown) Blood Pressure (units (unknown) date) 85/54 L unknown) (unknown) (no (unknown) (unknown) Blood Pressure (units (unknown) date) 89/56 L 90/58 L unknown) (unknown) (no (unknown) (unknown) Blood Pressure (units (unknown) date) 96/58 L 97/58 L unknown) (unknown) (no (unknown) (unknown) Blood Pressure (units (unknown) date) 96/63 98/65 unknown) (unknown) (no (unknown) (unknown) Blood Pressure (units (unknown) date) 97/65 unknown) (unknown) (no (unknown) (unknown) Blood Pressure (units (unknown) date) 97/ 98/68 unknown) (unknown) (no (unknown) (unknown) Blood Pressure (units (unknown) date) 97/66 unknown) (unknown) (no (unknown) (unknown) Blood Pressure (units (unknown) date) 98/59 L unknown) (unknown) (no (unknown) (unknown) Blood Pressure (units (unknown) date) 98/60 97/59 L unknown) (unknown) (no (unknown) (unknown) Blood Pressure (units (unknown) date) 98/61 unknown) (unknown) (no (unknown) (unknown) Blood Pressure (units (unknown) date) 98/62 99/64 unknown) (unknown) (no (unknown) (unknown) Blood Pressure (units (unknown) date) 99/61 unknown) (unknown) (no (unknown) (unknown) Blood Pressure (units (unknown) date) 99/65 unknown) (unknown) (no (unknown) (unknown) Blood Pressure (units (unknown) date) 99/68 103/72 unknown) (unknown) (no (unknown) (unknown) Blood Pressure (units (unknown) date) unknown) (unknown) (no (unknown) (unknown) CK-MB (CK-2) 2.02 (units (unknown) date) unknown) (unknown) (no (unknown) (unknown) CK-MB (CK-2) Rel (units (unknown) date) Index 0.2 L unknown) (unknown) (no (unknown) (unknown) CK-MB (CK-2) Rel (units (unknown) date) Index unknown) (unknown) (no (unknown) (unknown) CK-MB (CK-2) (units (u nknown) date) unknown) (unknown) (no (unknown) (unknown) Calcium 8.3 L (units ( unknown) date) unknown) (unknown) (no (unknown) (unknown) Calcium (units (unkno wn) date) unknown) (unknown) (no (unknown) (unknown) Carbon Dioxide 23 (units (unknown) date) unknown) (unknown) (no (unknown) (unknown) Carbon Dioxide (units (unknown) date) unknown) (unknown) (no (unknown) (unknown) Chief complaint: (units (unknown) date) she has wounds on unknown) head, not eating, mucas in nose (unknown) (no (unknown) (unknown) Chlamy pneumoniae (units (unknown) date) PCR Not detected unknown) (unknown) (no (unknown) (unknown) Chlamy pneumoniae (units (unknown) date) PCR unknown) (unknown) (no (unknown) (unknown) Chloride 99 (units (un known) date) unknown) (unknown) (no (unknown) (unknown) Chloride (units (unkno wn) date) unknown) (unknown) (no (unknown) (unknown) Consent obtained (units (unknown) date) for unknown) tele-anesthesia assistant care: Yes (unknown) (no (unknown) (unknown) Consult details (units (unknown) date) unknown) (unknown) (no (unknown) (unknown) Coronavirus 229E (units (unknown) date) (PCR) Not detected unknown) (unknown) (no (unknown) (unknown) Coronavirus 229E (units (unknown) date) (PCR) unknown) (unknown) (no (unknown) (unknown) Coronavirus HKU1 (units (unknown) date) (PCR) Not detected unknown) (unknown) (no (unknown) (unknown) Coronavirus HKU1 (units (unknown) date) (PCR) unknown) (unknown) (no (unknown) (unknown) Coronavirus NL63 (units (unknown) date) (PCR) Not detected unknown) (unknown) (no (unknown) (unknown) Coronavirus NL63 (units (unknown) date) (PCR) unknown) (unknown) (no (unknown) (unknown) Coronavirus OC43 (units (unknown) date) (PCR) Not detected unknown) (unknown) (no (unknown) (unknown) Coronavirus OC43 (units (unknown) date) (PCR) unknown) (unknown) (no (unknown) (unknown) Creatinine 0.64 (units (unknown) date) unknown) (unknown) (no (unknown) (unknown) Creatinine (units (unk nown) date) unknown) (unknown) (no (unknown) (unknown) Critical Care (units ( unknown) date) time: unknown) (unknown) (no (unknown) (unknown) Current (units (unkno wn) date) Medications unknown) (unknown) (no (unknown) (unknown) D-Dimer 2351 H (units (unknown) date) unknown) (unknown) (no (unknown) (unknown) D-Dimer (units (unkno wn) date) unknown) (unknown) (no (unknown) (unknown) : 1990 (units (unknown) date) Acct:[id number] unknown) (unknown) (no (unknown) (unknown) Date Patient (units (u nknown) date) Seen: 02/07/22 unknown) (unknown) (no (unknown) (unknown) Date of Service: (units (unknown) date) 02/07/22 unknown) (unknown) (no (unknown) (unknown) Entero/Rhino (units (u nknown) date) (PCR) Not detected unknown) (unknown) (no (unknown) (unknown) Entero/Rhino (units (u nknown) date) (PCR) unknown) (unknown) (no (unknown) (unknown) Eos # (Auto) 0 (units (unknown) date) unknown) (unknown) (no (unknown) (unknown) Eos # (Auto) (units (u nknown) date) unknown) (unknown) (no (unknown) (unknown) Eos % (Auto) 0.0 (units (unknown) date) L unknown) (unknown) (no (unknown) (unknown) Eos % (Auto) (units (u nknown) date) unknown) (unknown) (no (unknown) (unknown) Estimated GFR > (units (unknown) date) 60 unknown) (unknown) (no (unknown) (unknown) Estimated GFR (units ( unknown) date) unknown) (unknown) (no (unknown) (unknown) Exam (units (unkno wn) date) unknown) (unknown) (no (unknown) (unknown) Generic Name Dose (units (unknown) date) Route Start Last unknown) Admin (unknown) (no (unknown) (unknown) Globulin 4.3 H (units (unknown) date) unknown) (unknown) (no (unknown) (unknown) Globulin (units (unkno wn) date) unknown) (unknown) (no (unknown) (unknown) Glucose 113 H (units ( unknown) date) unknown) (unknown) (no (unknown) (unknown) Glucose (units (unkno wn) date) unknown) (unknown) (no (unknown) (unknown) Hct 32.5 L (units (unk nown) date) unknown) (unknown) (no (unknown) (unknown) Hct (units (unkno wn) date) unknown) (unknown) (no (unknown) (unknown) Hgb 10.9 L (units (unk nown) date) unknown) (unknown) (no (unknown) (unknown) Hgb (units (unkno wn) date) unknown) (unknown) (no (unknown) (unknown) 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) (unknown) (no (unknown) (unknown) History of (units (unk nown) date) Present Illness unknown) (unknown) (no (unknown) (unknown) History of (units (unk nown) date) pulmonary embolism unknown) (unknown) (no (unknown) (unknown) Home Medications (units (unknown) date) unknown) (unknown) (no (unknown) (unknown) Human (units (unkno wn) date) Metapneumovir PCR unknown) Not detected (unknown) (no (unknown) (unknown) Human (units (unkno wn) date) Metapneumovir PCR unknown) (unknown) (no (unknown) (unknown) I spent a total (units (unknown) date) of [] minutes of unknown) critical care time on this patient's care (unknown) (no (unknown) (unknown) IV Infused (units (unk nown) date) unknown) (unknown) (no (unknown) (unknown) In the ER, after (units (unknown) date) receiving IVFs had unknown) a drop in her BP thus was placed on (unknown) (no (unknown) (unknown) Influenza A (units (un known) date) (RT-PCR) Flu a unknown) negative (unknown) (no (unknown) (unknown) Influenza A (units (un known) date) (RT-PCR) unknown) (unknown) (no (unknown) (unknown) Influenza B (units (un known) date) (RT-PCR) Flu b unknown) negative (unknown) (no (unknown) (unknown) Influenza B (units (un known) date) (RT-PCR) unknown) (unknown) (no (unknown) (unknown) Influenza Type A (units (unknown) date) (PCR) Not detected unknown) (unknown) (no (unknown) (unknown) Influenza Type A (units (unknown) date) (PCR) unknown) (unknown) (no (unknown) (unknown) Influenza Type B (units (unknown) date) (PCR) Not detected unknown) (unknown) (no (unknown) (unknown) Influenza Type B (units (unknown) date) (PCR) unknown) (unknown) (no (unknown) (unknown) [facility] (units (unknown) date) [address] unknown) [place] [address] (unknown) (no (unknown) (unknown) Laboratory (units (unk nown) date) Results - last 24 unknown) hr (unknown) (no (unknown) (unknown) Labs (units (unkno wn) date) unknown) (unknown) (no (unknown) (unknown) Labs: (units (unkno wn) date) unknown) (unknown) (no (unknown) (unknown) Lactate 1.6 (units (un known) date) unknown) (unknown) (no (unknown) (unknown) Lactate WNL. On (units (unknown) date) Levophed 3 at time unknown) of ICU arrival. (unknown) (no (unknown) (unknown) Lactate (units (unkno wn) date) unknown) (unknown) (no (unknown) (unknown) Levophed IV 3 (units ( unknown) date) mcg/min unknown) (unknown) (no (unknown) (unknown) Levophed. A RIJ (units (unknown) date) CVC was placed. In unknown) the ER, history was mainly obtained from (unknown) (no (unknown) (unknown) Lymph # (Auto) (units (unknown) date) 900 L unknown) (unknown) (no (unknown) (unknown) Lymph # (Auto) (units (unknown) date) unknown) (unknown) (no (unknown) (unknown) Lymph % (Auto) (units (unknown) date) 20.7 L unknown) (unknown) (no (unknown) (unknown) Lymph % (Auto) (units (unknown) date) unknown) (unknown) (no (unknown) (unknown) M. pneumoniae (units ( unknown) date) (PCR) Not detected unknown) (unknown) (no (unknown) (unknown) M. pneumoniae (units ( unknown) date) (PCR) unknown) (unknown) (no (unknown) (unknown) [id number] (units (unk nown) date) unknown) (unknown) (no (unknown) (unknown) MCH 28.7 (units (unkno wn) date) unknown) (unknown) (no (unknown) (unknown) MCH (units (unkno wn) date) unknown) (unknown) (no (unknown) (unknown) MCHC 33.5 (units (unkn own) date) unknown) (unknown) (no (unknown) (unknown) MCHC (units (unkno wn) date) unknown) (unknown) (no (unknown) (unknown) MCV 85.7 (units (unkno wn) date) unknown) (unknown) (no (unknown) (unknown) MCV (units (unkno wn) date) unknown) (unknown) (no (unknown) (unknown) Magnesium 2.1 (units ( unknown) date) unknown) (unknown) (no (unknown) (unknown) Magnesium (units (unkn own) date) unknown) (unknown) (no (unknown) (unknown) Medical History (units (unknown) date) (Updated 02/07/22 unknown) @ 19:26 by Marilu Philip) (unknown) (no (unknown) (unknown) Medications: (units (u nknown) date) unknown) (unknown) (no (unknown) (unknown) Butts # (Auto) 500 (units (unknown) date) unknown) (unknown) (no (unknown) (unknown) Butts # (Auto) (units ( unknown) date) unknown) (unknown) (no (unknown) (unknown) Butts % (Auto) (units ( unknown) date) 10.1 unknown) (unknown) (no (unknown) (unknown) Butts % (Auto) (units ( unknown) date) unknown) (unknown) (no (unknown) (unknown) NOREPINEPHRINE (units (unknown) date) BITARTRATE/D5W 4 unknown) mg in 250 mls @ 30 mls/hr 02/07/22 12:34 (unknown) (no (unknown) (unknown) Narrative: (units (unk nown) date) unknown) (unknown) (no (unknown) (unknown) Neut # (Auto) (units ( unknown) date) 3100 unknown) (unknown) (no (unknown) (unknown) Neut # (Auto) (units ( unknown) date) unknown) (unknown) (no (unknown) (unknown) Neut % (Auto) (units ( unknown) date) 68.7 unknown) (unknown) (no (unknown) (unknown) Neut % (Auto) (units ( unknown) date) unknown) (unknown) (no (unknown) (unknown) Objective (units (unkn own) date) unknown) (unknown) (no (unknown) (unknown) Other (units (unkno wn) date) participants/roles unknown) : RN (unknown) (no (unknown) (unknown) Oxygen Delivery (units (unknown) date) Method Room Air unknown) (unknown) (no (unknown) (unknown) Oxygen Delivery (units (unknown) date) Method unknown) (unknown) (no (unknown) (unknown) Oxygen Flow Rate (units (unknown) date) 0 unknown) (unknown) (no (unknown) (unknown) Oxygen Flow Rate (units (unknown) date) unknown) (unknown) (no (unknown) (unknown) PFSH (units (unkno wn) date) unknown) (unknown) (no (unknown) (unknown) Parainfluenza 1 (units (unknown) date) (PCR) Not detected unknown) (unknown) (no (unknown) (unknown) Parainfluenza 1 (units (unknown) date) (PCR) unknown) (unknown) (no (unknown) (unknown) Parainfluenza 2 (units (unknown) date) (PCR) Not detected unknown) (unknown) (no (unknown) (unknown) Parainfluenza 2 (units (unknown) date) (PCR) unknown) (unknown) (no (unknown) (unknown) Parainfluenza 3 (units (unknown) date) (PCR) Not detected unknown) (unknown) (no (unknown) (unknown) Parainfluenza 3 (units (unknown) date) (PCR) unknown) (unknown) (no (unknown) (unknown) Parainfluenza 4 (units (unknown) date) (PCR) Not detected unknown) (unknown) (no (unknown) (unknown) Parainfluenza 4 (units (unknown) date) (PCR) unknown) (unknown) (no (unknown) (unknown) Patient Location: (units (unknown) date) ICU unknown) (unknown) (no (unknown) (unknown) Patient is a 31F (units (unknown) date) with a PMH of unknown) Schizophrenia, PE (previousy on AC many years (unknown) (no (unknown) (unknown) Patient received (units (unknown) date) Vanc, Zosyn, unknown) Azithromycin. CTA w/o PE. UA without infection. (unknown) (no (unknown) (unknown) Patient: (units (unkno wn) date) Vanessa [place] unknown) B MR#: (unknown) (no (unknown) (unknown) Plan: (units (unkno wn) date) unknown) (unknown) (no (unknown) (unknown) Plt Count 155 (units ( unknown) date) unknown) (unknown) (no (unknown) (unknown) Plt Count (units (unkn own) date) unknown) (unknown) (no (unknown) (unknown) Potassium 3.6 (units ( unknown) date) unknown) (unknown) (no (unknown) (unknown) Potassium (units (unkn own) date) unknown) (unknown) (no (unknown) (unknown) Procalcitonin (units ( unknown) date) 1.08 H unknown) (unknown) (no (unknown) (unknown) Procalcitonin (units ( unknown) date) unknown) (unknown) (no (unknown) (unknown) Protocol (units (unkno wn) date) unknown) (unknown) (no (unknown) (unknown) Provider location (units (unknown) date) (State): [place] unknown) (unknown) (no (unknown) (unknown) Provider: (units (unkn own) date) Marilu Philip unknown) (unknown) (no (unknown) (unknown) Pulse Oximetry (units (unknown) date) 100 100 unknown) (unknown) (no (unknown) (unknown) Pulse Oximetry (units (unknown) date) 100 99 unknown) (unknown) (no (unknown) (unknown) Pulse Oximetry (units (unknown) date) 100 unknown) (unknown) (no (unknown) (unknown) Pulse Oximetry 98 (units (unknown) date) 100 unknown) (unknown) (no (unknown) (unknown) Pulse Oximetry 98 (units (unknown) date) 96 unknown) (unknown) (no (unknown) (unknown) Pulse Oximetry 98 (units (unknown) date) 98 unknown) (unknown) (no (unknown) (unknown) Pulse Oximetry 98 (units (unknown) date) 99 unknown) (unknown) (no (unknown) (unknown) Pulse Oximetry 98 (units (unknown) date) unknown) (unknown) (no (unknown) (unknown) Pulse Oximetry 99 (units (unknown) date) 98 unknown) (unknown) (no (unknown) (unknown) Pulse Oximetry 99 (units (unknown) date) 99 unknown) (unknown) (no (unknown) (unknown) Pulse Oximetry 99 (units (unknown) date) unknown) (unknown) (no (unknown) (unknown) Pulse Rate 100 H (units (unknown) date) unknown) (unknown) (no (unknown) (unknown) Pulse Rate 65 (units ( unknown) date) unknown) (unknown) (no (unknown) (unknown) Pulse Rate 67 64 (units (unknown) date) unknown) (unknown) (no (unknown) (unknown) Pulse Rate 67 65 (units (unknown) date) unknown) (unknown) (no (unknown) (unknown) Pulse Rate 67 77 (units (unknown) date) unknown) (unknown) (no (unknown) (unknown) Pulse Rate 68 69 (units (unknown) date) unknown) (unknown) (no (unknown) (unknown) Pulse Rate 68 (units ( unknown) date) unknown) (unknown) (no (unknown) (unknown) Pulse Rate 69 (units ( unknown) date) unknown) (unknown) (no (unknown) (unknown) Pulse Rate 70 72 (units (unknown) date) unknown) (unknown) (no (unknown) (unknown) Pulse Rate 70 (units ( unknown) date) unknown) (unknown) (no (unknown) (unknown) Pulse Rate 71 (units ( unknown) date) unknown) (unknown) (no (unknown) (unknown) Pulse Rate 72 71 (units (unknown) date) unknown) (unknown) (no (unknown) (unknown) Pulse Rate 72 72 (units (unknown) date) unknown) (unknown) (no (unknown) (unknown) Pulse Rate 73 79 (units (unknown) date) unknown) (unknown) (no (unknown) (unknown) Pulse Rate 73 (units ( unknown) date) unknown) (unknown) (no (unknown) (unknown) Pulse Rate 74 74 (units (unknown) date) unknown) (unknown) (no (unknown) (unknown) Pulse Rate 75 (units ( unknown) date) unknown) (unknown) (no (unknown) (unknown) Pulse Rate 77 71 (units (unknown) date) unknown) (unknown) (no (unknown) (unknown) Pulse Rate 77 (units ( unknown) date) unknown) (unknown) (no (unknown) (unknown) Pulse Rate 78 63 (units (unknown) date) unknown) (unknown) (no (unknown) (unknown) Pulse Rate 78 (units ( unknown) date) unknown) (unknown) (no (unknown) (unknown) Pulse Rate 79 79 (units (unknown) date) unknown) (unknown) (no (unknown) (unknown) Pulse Rate 79 (units ( unknown) date) unknown) (unknown) (no (unknown) (unknown) Pulse Rate 80 79 (units (unknown) date) unknown) (unknown) (no (unknown) (unknown) Pulse Rate 80 81 (units (unknown) date) unknown) (unknown) (no (unknown) (unknown) Pulse Rate 80 (units ( unknown) date) unknown) (unknown) (no (unknown) (unknown) Pulse Rate 81 70 (units (unknown) date) unknown) (unknown) (no (unknown) (unknown) Pulse Rate 83 (units ( unknown) date) unknown) (unknown) (no (unknown) (unknown) Pulse Rate 89 79 (units (unknown) date) unknown) (unknown) (no (unknown) (unknown) Pulse Rate 89 80 (units (unknown) date) unknown) (unknown) (no (unknown) (unknown) Pulse Rate 89 (units ( unknown) date) unknown) (unknown) (no (unknown) (unknown) Pulse Rate 90 90 (units (unknown) date) unknown) (unknown) (no (unknown) (unknown) Pulse Rate 91 H (units (unknown) date) 99 H unknown) (unknown) (no (unknown) (unknown) Pulse Rate 93 H (units (unknown) date) unknown) (unknown) (no (unknown) (unknown) Pulse Rate 95 H (units (unknown) date) unknown) (unknown) (no (unknown) (unknown) Q24H EVERARDO Infusion (units (unknown) date) unknown) (unknown) (no (unknown) (unknown) Q8H EVERARDO (units (unkno wn) date) Administration unknown) (unknown) (no (unknown) (unknown) RBC 3.79 L (units (unk nown) date) unknown) (unknown) (no (unknown) (unknown) RBC (units (unkno wn) date) unknown) (unknown) (no (unknown) (unknown) RDW 14.1 (units (unkno wn) date) unknown) (unknown) (no (unknown) (unknown) RDW (units (unkno wn) date) unknown) (unknown) (no (unknown) (unknown) RSV (PCR) (units (unkn own) date) Negative unknown) (unknown) (no (unknown) (unknown) RSV (PCR) Not (units ( unknown) date) detected unknown) (unknown) (no (unknown) (unknown) RSV (PCR) (units (unkn own) date) unknown) (unknown) (no (unknown) (unknown) Respiratory Rate (units (unknown) date) 17 unknown) (unknown) (no (unknown) (unknown) Respiratory Rate (units (unknown) date) 19 unknown) (unknown) (no (unknown) (unknown) Respiratory Rate (units (unknown) date) 21 unknown) (unknown) (no (unknown) (unknown) Respiratory Rate (units (unknown) date) 24 unknown) (unknown) (no (unknown) (unknown) Respiratory Rate (units (unknown) date) 25 H 20 unknown) (unknown) (no (unknown) (unknown) Respiratory Rate (units (unknown) date) 25 H 36 H unknown) (unknown) (no (unknown) (unknown) Respiratory Rate (units (unknown) date) 25 H unknown) (unknown) (no (unknown) (unknown) Respiratory Rate (units (unknown) date) 26 H unknown) (unknown) (no (unknown) (unknown) Respiratory Rate (units (unknown) date) 27 H 29 H unknown) (unknown) (no (unknown) (unknown) Respiratory Rate (units (unknown) date) 27 H unknown) (unknown) (no (unknown) (unknown) Respiratory Rate (units (unknown) date) 28 H 16 unknown) (unknown) (no (unknown) (unknown) Respiratory Rate (units (unknown) date) 28 H 26 H unknown) (unknown) (no (unknown) (unknown) Respiratory Rate (units (unknown) date) 28 H 28 H unknown) (unknown) (no (unknown) (unknown) Respiratory Rate (units (unknown) date) 28 H 29 H unknown) (unknown) (no (unknown) (unknown) Respiratory Rate (units (unknown) date) 29 H 26 H unknown) (unknown) (no (unknown) (unknown) Respiratory Rate (units (unknown) date) 29 H unknown) (unknown) (no (unknown) (unknown) Respiratory Rate (units (unknown) date) 30 H 28 H unknown) (unknown) (no (unknown) (unknown) Respiratory Rate (units (unknown) date) 30 H 31 H unknown) (unknown) (no (unknown) (unknown) Respiratory Rate (units (unknown) date) 30 H 32 H unknown) (unknown) (no (unknown) (unknown) Respiratory Rate (units (unknown) date) 30 H unknown) (unknown) (no (unknown) (unknown) Respiratory Rate (units (unknown) date) 31 H 26 H unknown) (unknown) (no (unknown) (unknown) Respiratory Rate (units (unknown) date) 31 H 28 H unknown) (unknown) (no (unknown) (unknown) Respiratory Rate (units (unknown) date) 31 H 30 H unknown) (unknown) (no (unknown) (unknown) Respiratory Rate (units (unknown) date) 31 H unknown) (unknown) (no (unknown) (unknown) Respiratory Rate (units (unknown) date) 32 H 30 H unknown) (unknown) (no (unknown) (unknown) Respiratory Rate (units (unknown) date) 32 H unknown) (unknown) (no (unknown) (unknown) Respiratory Rate (units (unknown) date) 34 H 18 unknown) (unknown) (no (unknown) (unknown) Respiratory Rate (units (unknown) date) 34 H 20 unknown) (unknown) (no (unknown) (unknown) Respiratory Rate (units (unknown) date) unknown) (unknown) (no (unknown) (unknown) Result Diagrams: (units (unknown) date) unknown) (unknown) (no (unknown) (unknown) SARS-CoV-2 (PCR) (units (unknown) date) Negative unknown) (unknown) (no (unknown) (unknown) SARS-CoV-2 (PCR) (units (unknown) date) Not detected unknown) (unknown) (no (unknown) (unknown) SARS-CoV-2 (PCR) (units (unknown) date) unknown) (unknown) (no (unknown) (unknown) Schizophrenia (units ( unknown) date) unknown) (unknown) (no (unknown) (unknown) Signed By: (units (unk nown) date) unknown) (unknown) (no (unknown) (unknown) Smoking Status: (units (unknown) date) Never smoker unknown) (unknown) (no (unknown) (unknown) Social History (units (unknown) date) unknown) (unknown) (no (unknown) (unknown) Sodium 134 L (units (u nknown) date) unknown) (unknown) (no (unknown) (unknown) Sodium (units (unkno wn) date) unknown) (unknown) (no (unknown) (unknown) Status: Acute (units ( unknown) date) unknown) (unknown) (no (unknown) (unknown) TITRATE [facility]ERARDO 11.25 (units (unknown) date) mls/hr unknown) (unknown) (no (unknown) (unknown) 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 (units (unknown) date) Consult Note unknown) (unknown) (no (unknown) (unknown) Temperature 100.4 (units (unknown) date) F H 100.0 F H unknown) (unknown) (no (unknown) (unknown) Temperature 100.6 (units (unknown) date) F H unknown) (unknown) (no (unknown) (unknown) Temperature 98.2 (units (unknown) date) F unknown) (unknown) (no (unknown) (unknown) Temperature 98.4 (units (unknown) date) F 98.2 F unknown) (unknown) (no (unknown) (unknown) Temperature 98.4 (units (unknown) date) F 98.4 F unknown) (unknown) (no (unknown) (unknown) Temperature 98.4 (units (unknown) date) F 98.6 F unknown) (unknown) (no (unknown) (unknown) Temperature 98.4 (units (unknown) date) F unknown) (unknown) (no (unknown) (unknown) Temperature 98.6 (units (unknown) date) F 98.6 F unknown) (unknown) (no (unknown) (unknown) Temperature 98.6 (units (unknown) date) F unknown) (unknown) (no (unknown) (unknown) Temperature 98.8 (units (unknown) date) F 98.6 F unknown) (unknown) (no (unknown) (unknown) Temperature 98.8 (units (unknown) date) F unknown) (unknown) (no (unknown) (unknown) Temperature 99.0 (units (unknown) date) F 99.0 F unknown) (unknown) (no (unknown) (unknown) Temperature 99.0 (units (unknown) date) F unknown) (unknown) (no (unknown) (unknown) Temperature 99.1 (units (unknown) date) F 99.1 F unknown) (unknown) (no (unknown) (unknown) Temperature 99.1 (units (unknown) date) F unknown) (unknown) (no (unknown) (unknown) Temperature 99.3 (units (unknown) date) F unknown) (unknown) (no (unknown) (unknown) Temperature 99.7 (units (unknown) date) F H unknown) (unknown) (no (unknown) (unknown) Temperature 99.9 (units (unknown) date) F H 99.9 F H unknown) (unknown) (no (unknown) (unknown) Temperature (units (un known) date) unknown) (unknown) (no (unknown) (unknown) Time Spent With (units (unknown) date) Patient unknown) (unknown) (no (unknown) (unknown) Titration (units (unkn own) date) unknown) (unknown) (no (unknown) (unknown) Total Bilirubin (units (unknown) date) 0.5 unknown) (unknown) (no (unknown) (unknown) Total Bilirubin (units (unknown) date) unknown) (unknown) (no (unknown) (unknown) Total Creatine (units (unknown) date) Kinase 825 H unknown) (unknown) (no (unknown) (unknown) Total Creatine (units (unknown) date) Kinase unknown) (unknown) (no (unknown) (unknown) Total Protein 7.9 (units (unknown) date) unknown) (unknown) (no (unknown) (unknown) Total Protein (units ( unknown) date) unknown) (unknown) (no (unknown) (unknown) Trade Name Freq (units (unknown) date) PRN Reason Stop unknown) Dose Admin (unknown) (no (unknown) (unknown) Troponin I < (units (u nknown) date) 0.012 unknown) (unknown) (no (unknown) (unknown) Troponin I (units (unk nown) date) unknown) (unknown) (no (unknown) (unknown) Ur Culture (units (unk nown) date) Indicated? Cult unknown) not indicated (unknown) (no (unknown) (unknown) Ur Culture (units (unk nown) date) Indicated? unknown) (unknown) (no (unknown) (unknown) Ur Squamous Epith (units (unknown) date) Cells 1-5 /hpf unknown) (unknown) (no (unknown) (unknown) Ur Squamous Epith (units (unknown) date) Cells unknown) (unknown) (no (unknown) (unknown) Ur Transition (units ( unknown) date) Epith Cell 0-1/hpf unknown) (unknown) (no (unknown) (unknown) Ur Transition (units ( unknown) date) Epith Cell unknown) (unknown) (no (unknown) (unknown) Urine Bacteria (units (unknown) date) None seen unknown) (unknown) (no (unknown) (unknown) Urine Bacteria (units (unknown) date) unknown) (unknown) (no (unknown) (unknown) Urine (units (unknown) date) Test Negative unknown) (unknown) (no (unknown) (unknown) Urine (units (unknown) date) Test unknown) (unknown) (no (unknown) (unknown) Urine RBC None (units (unknown) date) seen unknown) (unknown) (no (unknown) (unknown) Urine RBC (units (unkn own) date) unknown) (unknown) (no (unknown) (unknown) Urine WBC 1-5/hpf (units (unknown) date) unknown) (unknown) (no (unknown) (unknown) Urine WBC (units (unkn own) date) unknown) (unknown) (no (unknown) (unknown) Vancomycin HCl (units (unknown) date) 750 mg in 150 mls unknown) @ 150 mls/hr 02/07/22 18:00 02/07/22 18:30 (unknown) (no (unknown) (unknown) Vancomycin IV 150 (units (unknown) date) mls/hr unknown) (unknown) (no (unknown) (unknown) Visit Medications (units (unknown) date) (administered) unknown) (unknown) (no (unknown) (unknown) Vital Signs (units (un known) date) unknown) (unknown) (no (unknown) (unknown) WBC 4.5 (units (unkno wn) date) unknown) (unknown) (no (unknown) (unknown) WBC (units (unkno wn) date) unknown) (unknown) (no (unknown) (unknown) [Embedded Image (units (unknown) date) Not Available] unknown) (unknown) (no (unknown) (unknown) ago, IVC filter - (units (unknown) date) unclear if unknown) removed) who was admitted to the ICU this evening (unknown) (no (unknown) (unknown) and skin (units (unkno wn) date) infection. Had unknown) recently been placed on Keflex by outside hospital/ENT? 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 (unknown) (no (unknown) (unknown) today; this time (units (unknown) date) is exclusive of unknown) procedural time. (unknown) (no (unknown) (unknown) with c/f septic (units (unknown) date) shock. Per unknown) Hospitalist report, patient presented with fevers Result panel 466 (unknown) (no (unknown) (unknown) (no value) (units (unk nown) date) unknown) (unknown) (no (unknown) (unknown) (1) Septic shock: (units (unknown) date) unknown) (unknown) (no (unknown) (unknown) (2) Soft tissue (units (unknown) date) infection: unknown) (unknown) (no (unknown) (unknown) (3) (units (unkno wn) date) Schizophrenia: unknown) (unknown) (no (unknown) (unknown) (past 8 hours): (units (unknown) date) unknown) (unknown) (no (unknown) (unknown) - Consider (units (unk nown) date) additional IVF unknown) bolus if unable to get off of Levophed by morning (unknown) (no (unknown) (unknown) - Continue (units (unk nown) date) Levophed, titrated unknown) to MAP goal >65 (unknown) (no (unknown) (unknown) - Continue Vanc, (units (unknown) date) Zosyn, unknown) Azithromycin (unknown) (no (unknown) (unknown) - Continue home (units (unknown) date) Psych meds unknown) (unknown) (no (unknown) (unknown) - DC R IJ CVC (units ( unknown) date) when off pressors unknown) (unknown) (no (unknown) (unknown) - Follow up (units (un known) date) cultures, MRSA unknown) swab (unknown) (no (unknown) (unknown) - If persistent (units (unknown) date) sepsis, may need unknown) to further explore sinusitis/abscesse s in (unknown) (no (unknown) (unknown) - If remains on (units (unknown) date) Levophed tomorrow, unknown) would obtain TTE (unknown) (no (unknown) (unknown) - Monitor UOP, (units (unknown) date) goal is unknown) >0.5cc/kg/hour (unknown) (no (unknown) (unknown) - PRN Zyprexa v (units (unknown) date) Haldol for severe unknown) agitation. Would monitor EKG/QTc (unknown) (no (unknown) (unknown) - Psychiatry was (units (unknown) date) consulted in the unknown) ER (unknown) (no (unknown) (unknown) - Regular diet (units (unknown) date) unknown) (unknown) (no (unknown) (unknown) - VTE PPx with (units (unknown) date) Lovenox unknown) (unknown) (no (unknown) (unknown) 08:22 08:22 08:22 (units (unknown) date) unknown) (unknown) (no (unknown) (unknown) 08:27 08:27 08:27 (units (unknown) date) unknown) (unknown) (no (unknown) (unknown) 08:27 08:42 09:20 (units (unknown) date) unknown) (unknown) (no (unknown) (unknown) 09:20 12:00 (units (un known) date) unknown) (unknown) (no (unknown) (unknown) 11:30 02/07/22 (units (unknown) date) unknown) (unknown) (no (unknown) (unknown) 02/07/22 08:27 (units (unknown) date) unknown) (unknown) (no (unknown) (unknown) 02/07/22 02/07/22 (units (unknown) date) 02/07/22 unknown) (unknown) (no (unknown) (unknown) 02/07/22 02/07/22 (units (unknown) date) unknown) (unknown) (no (unknown) (unknown) 02/07/22 13:24 (units (unknown) date) unknown) (unknown) (no (unknown) (unknown) 02/07/22 1940 (units ( unknown) date) unknown) (unknown) (no (unknown) (unknown) 02/07/22 (units (unkno wn) date) unknown) (unknown) (no (unknown) (unknown) 02/07/22] (units (unkn own) date) unknown) (unknown) (no (unknown) (unknown) 12:00 02/07/22 (units (unknown) date) unknown) (unknown) (no (unknown) (unknown) 12:00 (units (unkno wn) date) unknown) (unknown) (no (unknown) (unknown) 12:30 02/07/22 (units (unknown) date) unknown) (unknown) (no (unknown) (unknown) 12:30 (units (unkno wn) date) unknown) (unknown) (no (unknown) (unknown) 12:33 02/07/22 (units (unknown) date) unknown) (unknown) (no (unknown) (unknown) 12:37 02/07/22 (units (unknown) date) unknown) (unknown) (no (unknown) (unknown) 12:37 (units (unkno wn) date) unknown) (unknown) (no (unknown) (unknown) 12:40 02/07/22 (units (unknown) date) unknown) (unknown) (no (unknown) (unknown) 12:40 (units (unkno wn) date) unknown) (unknown) (no (unknown) (unknown) 12:52 02/07/22 (units (unknown) date) unknown) (unknown) (no (unknown) (unknown) 13:00 02/07/22 (units (unknown) date) unknown) (unknown) (no (unknown) (unknown) 13:00 (units (unkno wn) date) unknown) (unknown) (no (unknown) (unknown) 13:01 02/07/22 (units (unknown) date) unknown) (unknown) (no (unknown) (unknown) 13:01 (units (unkno wn) date) unknown) (unknown) (no (unknown) (unknown) 13:05 02/07/22 (units (unknown) date) unknown) (unknown) (no (unknown) (unknown) 13:10 02/07/22 (units (unknown) date) unknown) (unknown) (no (unknown) (unknown) 13:10 (units (unkno wn) date) unknown) (unknown) (no (unknown) (unknown) 13:15 02/07/22 (units (unknown) date) unknown) (unknown) (no (unknown) (unknown) 13:15 (units (unkno wn) date) unknown) (unknown) (no (unknown) (unknown) 13:20 02/07/22 (units (unknown) date) unknown) (unknown) (no (unknown) (unknown) 13:25 02/07/22 (units (unknown) date) unknown) (unknown) (no (unknown) (unknown) 13:25 (units (unkno wn) date) unknown) (unknown) (no (unknown) (unknown) 13:30 02/07/22 (units (unknown) date) unknown) (unknown) (no (unknown) (unknown) 13:30 (units (unkno wn) date) unknown) (unknown) (no (unknown) (unknown) 13:35 02/07/22 (units (unknown) date) unknown) (unknown) (no (unknown) (unknown) 13:40 02/07/22 (units (unknown) date) unknown) (unknown) (no (unknown) (unknown) 13:40 (units (unkno wn) date) unknown) (unknown) (no (unknown) (unknown) 13:45 02/07/22 (units (unknown) date) unknown) (unknown) (no (unknown) (unknown) 13:45 (units (unkno wn) date) unknown) (unknown) (no (unknown) (unknown) 13:50 02/07/22 (units (unknown) date) unknown) (unknown) (no (unknown) (unknown) 13:55 02/07/22 (units (unknown) date) unknown) (unknown) (no (unknown) (unknown) 13:55 (units (unkno wn) date) unknown) (unknown) (no (unknown) (unknown) 14:00 02/07/22 (units (unknown) date) unknown) (unknown) (no (unknown) (unknown) 14:00 (units (unkno wn) date) unknown) (unknown) (no (unknown) (unknown) 14:05 02/07/22 (units (unknown) date) unknown) (unknown) (no (unknown) (unknown) 14:10 02/07/22 (units (unknown) date) unknown) (unknown) (no (unknown) (unknown) 14:10 (units (unkno wn) date) unknown) (unknown) (no (unknown) (unknown) 14:15 02/07/22 (units (unknown) date) unknown) (unknown) (no (unknown) (unknown) 14:15 (units (unkno wn) date) unknown) (unknown) (no (unknown) (unknown) 14:20 02/07/22 (units (unknown) date) unknown) (unknown) (no (unknown) (unknown) 14:25 02/07/22 (units (unknown) date) unknown) (unknown) (no (unknown) (unknown) 14:25 (units (unkno wn) date) unknown) (unknown) (no (unknown) (unknown) 14:30 02/07/22 (units (unknown) date) unknown) (unknown) (no (unknown) (unknown) 14:30 (units (unkno wn) date) unknown) (unknown) (no (unknown) (unknown) 14:35 02/07/22 (units (unknown) date) unknown) (unknown) (no (unknown) (unknown) 14:40 02/07/22 (units (unknown) date) unknown) (unknown) (no (unknown) (unknown) 14:40 (units (unkno wn) date) unknown) (unknown) (no (unknown) (unknown) 14:45 02/07/22 (units (unknown) date) unknown) (unknown) (no (unknown) (unknown) 14:45 (units (unkno wn) date) unknown) (unknown) (no (unknown) (unknown) 14:50 02/07/22 (units (unknown) date) unknown) (unknown) (no (unknown) (unknown) 14:55 02/07/22 (units (unknown) date) unknown) (unknown) (no (unknown) (unknown) 14:55 (units (unkno wn) date) unknown) (unknown) (no (unknown) (unknown) 15:00 02/07/22 (units (unknown) date) unknown) (unknown) (no (unknown) (unknown) 15:00 (units (unkno wn) date) unknown) (unknown) (no (unknown) (unknown) 15:05 02/07/22 (units (unknown) date) unknown) (unknown) (no (unknown) (unknown) 15:10 02/07/22 (units (unknown) date) unknown) (unknown) (no (unknown) (unknown) 15:10 (units (unkno wn) date) unknown) (unknown) (no (unknown) (unknown) 15:15 02/07/22 (units (unknown) date) unknown) (unknown) (no (unknown) (unknown) 15:15 (units (unkno wn) date) unknown) (unknown) (no (unknown) (unknown) 15:20 02/07/22 (units (unknown) date) unknown) (unknown) (no (unknown) (unknown) 15:25 02/07/22 (units (unknown) date) unknown) (unknown) (no (unknown) (unknown) 15:25 (units (unkno wn) date) unknown) (unknown) (no (unknown) (unknown) 15:30 02/07/22 (units (unknown) date) unknown) (unknown) (no (unknown) (unknown) 15:30 (units (unkno wn) date) unknown) (unknown) (no (unknown) (unknown) 15:35 02/07/22 (units (unknown) date) unknown) (unknown) (no (unknown) (unknown) 15:40 02/07/22 (units (unknown) date) unknown) (unknown) (no (unknown) (unknown) 15:40 (units (unkno wn) date) unknown) (unknown) (no (unknown) (unknown) 15:45 02/07/22 (units (unknown) date) unknown) (unknown) (no (unknown) (unknown) 15:45 (units (unkno wn) date) unknown) (unknown) (no (unknown) (unknown) 15:50 02/07/22 (units (unknown) date) unknown) (unknown) (no (unknown) (unknown) 15:55 02/07/22 (units (unknown) date) unknown) (unknown) (no (unknown) (unknown) 15:55 (units (unkno wn) date) unknown) (unknown) (no (unknown) (unknown) 16:00 02/07/22 (units (unknown) date) unknown) (unknown) (no (unknown) (unknown) 16:00 (units (unkno wn) date) unknown) (unknown) (no (unknown) (unknown) 16:05 02/07/22 (units (unknown) date) unknown) (unknown) (no (unknown) (unknown) 16:10 02/07/22 (units (unknown) date) unknown) (unknown) (no (unknown) (unknown) 16:10 (units (unkno wn) date) unknown) (unknown) (no (unknown) (unknown) 16:15 02/07/22 (units (unknown) date) unknown) (unknown) (no (unknown) (unknown) 16:15 (units (unkno wn) date) unknown) (unknown) (no (unknown) (unknown) 16:20 02/07/22 (units (unknown) date) unknown) (unknown) (no (unknown) (unknown) 16:20 (units (unkno wn) date) unknown) (unknown) (no (unknown) (unknown) 16:25 02/07/22 (units (unknown) date) unknown) (unknown) (no (unknown) (unknown) 16:30 02/07/22 (units (unknown) date) unknown) (unknown) (no (unknown) (unknown) 16:30 (units (unkno wn) date) unknown) (unknown) (no (unknown) (unknown) 16:35 02/07/22 (units (unknown) date) unknown) (unknown) (no (unknown) (unknown) 16:35 (units (unkno wn) date) unknown) (unknown) (no (unknown) (unknown) 16:40 02/07/22 (units (unknown) date) unknown) (unknown) (no (unknown) (unknown) 16:45 02/07/22 (units (unknown) date) unknown) (unknown) (no (unknown) (unknown) 16:45 (units (unkno wn) date) unknown) (unknown) (no (unknown) (unknown) 16:50 02/07/22 (units (unknown) date) unknown) (unknown) (no (unknown) (unknown) 16:50 (units (unkno wn) date) unknown) (unknown) (no (unknown) (unknown) 17:05 02/07/22 (units (unknown) date) unknown) (unknown) (no (unknown) (unknown) 17:17 02/07/22 (units (unknown) date) unknown) (unknown) (no (unknown) (unknown) 17:27 (units (unkno wn) date) unknown) (unknown) (no (unknown) (unknown) 18:58 (units (unkno wn) date) unknown) (unknown) (no (unknown) (unknown) 8 MCG/MIN (units (unkn own) date) unknown) (unknown) (no (unknown) (unknown) ALT 33 (units (unkno wn) date) unknown) (unknown) (no (unknown) (unknown) ALT (units (unkno wn) date) unknown) (unknown) (no (unknown) (unknown) AST 87 H (units (unkno wn) date) unknown) (unknown) (no (unknown) (unknown) AST (units (unkno wn) date) unknown) (unknown) (no (unknown) (unknown) Adenovirus (PCR) (units (unknown) date) Not detected unknown) (unknown) (no (unknown) (unknown) Adenovirus (PCR) (units (unknown) date) unknown) (unknown) (no (unknown) (unknown) Age/Sex: 31 / F (units (unknown) date) unknown) (unknown) (no (unknown) (unknown) Albumin 3.6 (units (un known) date) unknown) (unknown) (no (unknown) (unknown) Albumin (units (unkno wn) date) unknown) (unknown) (no (unknown) (unknown) Albumin/Globulin (units (unknown) date) Ratio 0.8 L unknown) (unknown) (no (unknown) (unknown) Albumin/Globulin (units (unknown) date) Ratio unknown) (unknown) (no (unknown) (unknown) Alkaline (units (unkno wn) date) Phosphatase 46 unknown) (unknown) (no (unknown) (unknown) Alkaline (units (unkno wn) date) Phosphatase unknown) (unknown) (no (unknown) (unknown) Assessment + Plan (units (unknown) date) narrative: unknown) (unknown) (no (unknown) (unknown) Assessment + Plan (units (unknown) date) unknown) (unknown) (no (unknown) (unknown) Assessment and (units (unknown) date) plan unknown) (unknown) (no (unknown) (unknown) Azithromycin 500 (units (unknown) date) mg/ Dextrose 250 unknown) mls @ 250 mls/hr 02/07/22 15:45 02/07/22 (unknown) (no (unknown) (unknown) B. pertussis DNA (units (unknown) date) (PCR) Not detected unknown) (unknown) (no (unknown) (unknown) B. pertussis DNA (units (unknown) date) (PCR) unknown) (unknown) (no (unknown) (unknown) B.parapertussis (units (unknown) date) DNA PCR Not unknown) detected (unknown) (no (unknown) (unknown) B.parapertussis (units (unknown) date) DNA PCR unknown) (unknown) (no (unknown) (unknown) BUN 14 (units (unkno wn) date) unknown) (unknown) (no (unknown) (unknown) BUN (units (unkno wn) date) unknown) (unknown) (no (unknown) (unknown) BUN/Creatinine (units (unknown) date) Ratio 21.9 unknown) (unknown) (no (unknown) (unknown) BUN/Creatinine (units (unknown) date) Ratio unknown) (unknown) (no (unknown) (unknown) Baso # (Auto) 0 (units (unknown) date) unknown) (unknown) (no (unknown) (unknown) Baso # (Auto) (units ( unknown) date) unknown) (unknown) (no (unknown) (unknown) Baso % (Auto) 0.5 (units (unknown) date) unknown) (unknown) (no (unknown) (unknown) Baso % (Auto) (units ( unknown) date) unknown) (unknown) (no (unknown) (unknown) Blood Pressure (units (unknown) date) 100/62 113/61 unknown) (unknown) (no (unknown) (unknown) Blood Pressure (units (unknown) date) / unknown) (unknown) (no (unknown) (unknown) Blood Pressure (units (unknown) date) unknown) (unknown) (no (unknown) (unknown) Blood Pressure (units (unknown) date) unknown) (unknown) (no (unknown) (unknown) Blood Pressure (units (unknown) date) unknown) (unknown) (no (unknown) (unknown) Blood Pressure (units (unknown) date) unknown) (unknown) (no (unknown) (unknown) Blood Pressure (units (unknown) date) unknown) (unknown) (no (unknown) (unknown) Blood Pressure (units (unknown) date) unknown) (unknown) (no (unknown) (unknown) Blood Pressure (units (unknown) date) unknown) (unknown) (no (unknown) (unknown) Blood Pressure (units (unknown) date) unknown) (unknown) (no (unknown) (unknown) Blood Pressure (units (unknown) date) unknown) (unknown) (no (unknown) (unknown) Blood Pressure (units (unknown) date) unknown) (unknown) (no (unknown) (unknown) Blood Pressure (units (unknown) date) unknown) (unknown) (no (unknown) (unknown) Blood Pressure (units (unknown) date) unknown) (unknown) (no (unknown) (unknown) Blood Pressure (units (unknown) date) unknown) (unknown) (no (unknown) (unknown) Blood Pressure (units (unknown) date) unknown) (unknown) (no (unknown) (unknown) Blood Pressure (units (unknown) date) unknown) (unknown) (no (unknown) (unknown) Blood Pressure (units (unknown) date) unknown) (unknown) (no (unknown) (unknown) Blood Pressure (units (unknown) date) unknown) (unknown) (no (unknown) (unknown) Blood Pressure (units (unknown) date) 106 unknown) (unknown) (no (unknown) (unknown) Blood Pressure (units (unknown) date) 108 110 unknown) (unknown) (no (unknown) (unknown) Blood Pressure (units (unknown) date) 114/ unknown) (unknown) (no (unknown) (unknown) Blood Pressure (units (unknown) date) 76/44 L unknown) (unknown) (no (unknown) (unknown) Blood Pressure (units (unknown) date) 85/54 L unknown) (unknown) (no (unknown) (unknown) Blood Pressure (units (unknown) date) 89/56 L 90/58 L unknown) (unknown) (no (unknown) (unknown) Blood Pressure (units (unknown) date) 96/58 L 97/58 L unknown) (unknown) (no (unknown) (unknown) Blood Pressure (units (unknown) date) 96/63 98/65 unknown) (unknown) (no (unknown) (unknown) Blood Pressure (units (unknown) date) 97 unknown) (unknown) (no (unknown) (unknown) Blood Pressure (units (unknown) date) / unknown) (unknown) (no (unknown) (unknown) Blood Pressure (units (unknown) date) unknown) (unknown) (no (unknown) (unknown) Blood Pressure (units (unknown) date) 98/59 L unknown) (unknown) (no (unknown) (unknown) Blood Pressure (units (unknown) date) 98/60 97/59 L unknown) (unknown) (no (unknown) (unknown) Blood Pressure (units (unknown) date) 98/61 unknown) (unknown) (no (unknown) (unknown) Blood Pressure (units (unknown) date) 98/62 99/64 unknown) (unknown) (no (unknown) (unknown) Blood Pressure (units (unknown) date) 99/61 unknown) (unknown) (no (unknown) (unknown) Blood Pressure (units (unknown) date) 99/ unknown) (unknown) (no (unknown) (unknown) Blood Pressure (units (unknown) date) 99/68 103/72 unknown) (unknown) (no (unknown) (unknown) Blood Pressure (units (unknown) date) unknown) (unknown) (no (unknown) (unknown) CK-MB (CK-2) 2.02 (units (unknown) date) unknown) (unknown) (no (unknown) (unknown) CK-MB (CK-2) Rel (units (unknown) date) Index 0.2 L unknown) (unknown) (no (unknown) (unknown) CK-MB (CK-2) Rel (units (unknown) date) Index unknown) (unknown) (no (unknown) (unknown) CK-MB (CK-2) (units (u nknown) date) unknown) (unknown) (no (unknown) (unknown) Calcium 8.3 L (units ( unknown) date) unknown) (unknown) (no (unknown) (unknown) Calcium (units (unkno wn) date) unknown) (unknown) (no (unknown) (unknown) Carbon Dioxide 23 (units (unknown) date) unknown) (unknown) (no (unknown) (unknown) Carbon Dioxide (units (unknown) date) unknown) (unknown) (no (unknown) (unknown) Chief complaint: (units (unknown) date) she has wounds on unknown) head, not eating, mucas in nose (unknown) (no (unknown) (unknown) Chlamy pneumoniae (units (unknown) date) PCR Not detected unknown) (unknown) (no (unknown) (unknown) Chlamy pneumoniae (units (unknown) date) PCR unknown) (unknown) (no (unknown) (unknown) Chloride 99 (units (un known) date) unknown) (unknown) (no (unknown) (unknown) Chloride (units (unkno wn) date) unknown) (unknown) (no (unknown) (unknown) Consent obtained (units (unknown) date) for unknown) tele-anesthesia assistant care: Yes (unknown) (no (unknown) (unknown) Consult details (units (unknown) date) unknown) (unknown) (no (unknown) (unknown) Coronavirus 229E (units (unknown) date) (PCR) Not detected unknown) (unknown) (no (unknown) (unknown) Coronavirus 229E (units (unknown) date) (PCR) unknown) (unknown) (no (unknown) (unknown) Coronavirus HKU1 (units (unknown) date) (PCR) Not detected unknown) (unknown) (no (unknown) (unknown) Coronavirus HKU1 (units (unknown) date) (PCR) unknown) (unknown) (no (unknown) (unknown) Coronavirus NL63 (units (unknown) date) (PCR) Not detected unknown) (unknown) (no (unknown) (unknown) Coronavirus NL63 (units (unknown) date) (PCR) unknown) (unknown) (no (unknown) (unknown) Coronavirus OC43 (units (unknown) date) (PCR) Not detected unknown) (unknown) (no (unknown) (unknown) Coronavirus OC43 (units (unknown) date) (PCR) unknown) (unknown) (no (unknown) (unknown) Creatinine 0.64 (units (unknown) date) unknown) (unknown) (no (unknown) (unknown) Creatinine (units (unk nown) date) unknown) (unknown) (no (unknown) (unknown) Critical Care (units ( unknown) date) time: unknown) (unknown) (no (unknown) (unknown) Current (units (unkno wn) date) Medications unknown) (unknown) (no (unknown) (unknown) D-Dimer 2351 H (units (unknown) date) unknown) (unknown) (no (unknown) (unknown) D-Dimer (units (unkno wn) date) unknown) (unknown) (no (unknown) (unknown) : 1990 (units (unknown) date) Acct:[id number] unknown) (unknown) (no (unknown) (unknown) Date Patient (units (u nknown) date) Seen: 02/07/22 unknown) (unknown) (no (unknown) (unknown) Date of Service: (units (unknown) date) 02/07/22 unknown) (unknown) (no (unknown) (unknown) Entero/Rhino (units (u nknown) date) (PCR) Not detected unknown) (unknown) (no (unknown) (unknown) Entero/Rhino (units (u nknown) date) (PCR) unknown) (unknown) (no (unknown) (unknown) Eos # (Auto) 0 (units (unknown) date) unknown) (unknown) (no (unknown) (unknown) Eos # (Auto) (units (u nknown) date) unknown) (unknown) (no (unknown) (unknown) Eos % (Auto) 0.0 (units (unknown) date) L unknown) (unknown) (no (unknown) (unknown) Eos % (Auto) (units (u nknown) date) unknown) (unknown) (no (unknown) (unknown) Estimated GFR > (units (unknown) date) 60 unknown) (unknown) (no (unknown) (unknown) Estimated GFR (units ( unknown) date) unknown) (unknown) (no (unknown) (unknown) Exam Narrative: (units (unknown) date) unknown) (unknown) (no (unknown) (unknown) Exam (units (unkno wn) date) unknown) (unknown) (no (unknown) (unknown) Generic Name Dose (units (unknown) date) Route Start Last unknown) Admin (unknown) (no (unknown) (unknown) Globulin 4.3 H (units (unknown) date) unknown) (unknown) (no (unknown) (unknown) Globulin (units (unkno wn) date) unknown) (unknown) (no (unknown) (unknown) Glucose 113 H (units ( unknown) date) unknown) (unknown) (no (unknown) (unknown) Glucose (units (unkno wn) date) unknown) (unknown) (no (unknown) (unknown) Hct 32.5 L (units (unk nown) date) unknown) (unknown) (no (unknown) (unknown) Hct (units (unkno wn) date) unknown) (unknown) (no (unknown) (unknown) Hgb 10.9 L (units (unk nown) date) unknown) (unknown) (no (unknown) (unknown) Hgb (units (unkno wn) date) unknown) (unknown) (no (unknown) (unknown) 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 unknown) Significant erythema/rash of face/neck. Drainage noted (unknown) (no (unknown) (unknown) History of (units (unk nown) date) pulmonary embolism unknown) (unknown) (no (unknown) (unknown) Home Medications (units (unknown) date) unknown) (unknown) (no (unknown) (unknown) Human (units (unkno wn) date) Metapneumovir PCR unknown) Not detected (unknown) (no (unknown) (unknown) Human (units (unkno wn) date) Metapneumovir PCR unknown) (unknown) (no (unknown) (unknown) I spent a total (units (unknown) date) of [35] minutes of unknown) critical care time on this patient's care (unknown) (no (unknown) (unknown) IF CAMERA (units (unkn own) date) ACTIVATED, patient unknown) seen via real-time interactive audiovisual (unknown) (no (unknown) (unknown) IV Infused (units (unk nown) date) unknown) (unknown) (no (unknown) (unknown) IVF bolus in ER. (units (unknown) date) Levo @ 3 unknown) currently. (unknown) (no (unknown) (unknown) Influenza A (units (un known) date) (RT-PCR) Flu a unknown) negative (unknown) (no (unknown) (unknown) Influenza A (units (un known) date) (RT-PCR) unknown) (unknown) (no (unknown) (unknown) Influenza B (units (un known) date) (RT-PCR) Flu b unknown) negative (unknown) (no (unknown) (unknown) Influenza B (units (un known) date) (RT-PCR) unknown) (unknown) (no (unknown) (unknown) Influenza Type A (units (unknown) date) (PCR) Not detected unknown) (unknown) (no (unknown) (unknown) Influenza Type A (units (unknown) date) (PCR) unknown) (unknown) (no (unknown) (unknown) Influenza Type B (units (unknown) date) (PCR) Not detected unknown) (unknown) (no (unknown) (unknown) Influenza Type B (units (unknown) date) (PCR) unknown) (unknown) (no (unknown) (unknown) [facility] (units (unknown) date) [address] unknown) [place] [address] (unknown) (no (unknown) (unknown) Laboratory (units (unk nown) date) Results - last 24 unknown) hr (unknown) (no (unknown) (unknown) Labs (units (unkno wn) date) unknown) (unknown) (no (unknown) (unknown) Labs: (units (unkno wn) date) unknown) (unknown) (no (unknown) (unknown) Lactate 1.6 (units (un known) date) unknown) (unknown) (no (unknown) (unknown) Lactate WNL. On (units (unknown) date) Levophed 3 at time unknown) of ICU arrival. (unknown) (no (unknown) (unknown) Lactate (units (unkno wn) date) unknown) (unknown) (no (unknown) (unknown) Levophed IV 3 (units ( unknown) date) mcg/min unknown) (unknown) (no (unknown) (unknown) Lymph # (Auto) (units (unknown) date) 900 L unknown) (unknown) (no (unknown) (unknown) Lymph # (Auto) (units (unknown) date) unknown) (unknown) (no (unknown) (unknown) Lymph % (Auto) (units (unknown) date) 20.7 L unknown) (unknown) (no (unknown) (unknown) Lymph % (Auto) (units (unknown) date) unknown) (unknown) (no (unknown) (unknown) M. pneumoniae (units ( unknown) date) (PCR) Not detected unknown) (unknown) (no (unknown) (unknown) M. pneumoniae (units ( unknown) date) (PCR) unknown) (unknown) (no (unknown) (unknown) [id number] (units (unk nown) date) unknown) (unknown) (no (unknown) (unknown) MCH 28.7 (units (unkno wn) date) unknown) (unknown) (no (unknown) (unknown) MCH (units (unkno wn) date) unknown) (unknown) (no (unknown) (unknown) MCHC 33.5 (units (unkn own) date) unknown) (unknown) (no (unknown) (unknown) MCHC (units (unkno wn) date) unknown) (unknown) (no (unknown) (unknown) MCV 85.7 (units (unkno wn) date) unknown) (unknown) (no (unknown) (unknown) MCV (units (unkno wn) date) unknown) (unknown) (no (unknown) (unknown) Magnesium 2.1 (units ( unknown) date) unknown) (unknown) (no (unknown) (unknown) Magnesium (units (unkn own) date) unknown) (unknown) (no (unknown) (unknown) Medical History (units (unknown) date) (Updated 02/07/22 unknown) @ 19:40 by Marilu Philip) (unknown) (no (unknown) (unknown) Medications: (units (u nknown) date) unknown) (unknown) (no (unknown) (unknown) Butts # (Auto) 500 (units (unknown) date) unknown) (unknown) (no (unknown) (unknown) Butts # (Auto) (units ( unknown) date) unknown) (unknown) (no (unknown) (unknown) Butts % (Auto) (units ( unknown) date) 10.1 unknown) (unknown) (no (unknown) (unknown) Butts % (Auto) (units ( unknown) date) unknown) (unknown) (no (unknown) (unknown) NOREPINEPHRINE (units (unknown) date) BITARTRATE/D5W 4 unknown) mg in 250 mls @ 30 mls/hr 02/07/22 12:34 (unknown) (no (unknown) (unknown) Narrative (units (unkn own) date) unknown) (unknown) (no (unknown) (unknown) Narrative: (units (unk nown) date) unknown) (unknown) (no (unknown) (unknown) Neut # (Auto) (units ( unknown) date) 3100 unknown) (unknown) (no (unknown) (unknown) Neut # (Auto) (units ( unknown) date) unknown) (unknown) (no (unknown) (unknown) Neut % (Auto) (units ( unknown) date) 68.7 unknown) (unknown) (no (unknown) (unknown) Neut % (Auto) (units ( unknown) date) unknown) (unknown) (no (unknown) (unknown) Objective (units (unkn own) date) unknown) (unknown) (no (unknown) (unknown) Other (units (unkno wn) date) participants/roles unknown) : RN (unknown) (no (unknown) (unknown) Oxygen Delivery (units (unknown) date) Method Room Air unknown) (unknown) (no (unknown) (unknown) Oxygen Delivery (units (unknown) date) Method unknown) (unknown) (no (unknown) (unknown) Oxygen Flow Rate (units (unknown) date) 0 unknown) (unknown) (no (unknown) (unknown) Oxygen Flow Rate (units (unknown) date) unknown) (unknown) (no (unknown) (unknown) PFSH (units (unkno wn) date) unknown) (unknown) (no (unknown) (unknown) Parainfluenza 1 (units (unknown) date) (PCR) Not detected unknown) (unknown) (no (unknown) (unknown) Parainfluenza 1 (units (unknown) date) (PCR) unknown) (unknown) (no (unknown) (unknown) Parainfluenza 2 (units (unknown) date) (PCR) Not detected unknown) (unknown) (no (unknown) (unknown) Parainfluenza 2 (units (unknown) date) (PCR) unknown) (unknown) (no (unknown) (unknown) Parainfluenza 3 (units (unknown) date) (PCR) Not detected unknown) (unknown) (no (unknown) (unknown) Parainfluenza 3 (units (unknown) date) (PCR) unknown) (unknown) (no (unknown) (unknown) Parainfluenza 4 (units (unknown) date) (PCR) Not detected unknown) (unknown) (no (unknown) (unknown) Parainfluenza 4 (units (unknown) date) (PCR) unknown) (unknown) (no (unknown) (unknown) Patient Location: (units (unknown) date) ICU unknown) (unknown) (no (unknown) (unknown) Patient is a 31F (units (unknown) date) with a PMH of unknown) Schizophrenia (non-verbal), PE (previously on AC (unknown) (no (unknown) (unknown) Patient is awake (units (unknown) date) and alert but is unknown) non-verbal. (unknown) (no (unknown) (unknown) Patient received (units (unknown) date) Vanc, Zosyn, unknown) Azithromycin. CTA w/o PE. UA without infection. (unknown) (no (unknown) (unknown) Patient: (units (unkno wn) date) [place] unknown) B MR#: (unknown) (no (unknown) (unknown) Plan: (units (unkno wn) date) unknown) (unknown) (no (unknown) (unknown) Please contact (units (unknown) date) Tele-ICU if any unknown) change in status. We will continue to follow (unknown) (no (unknown) (unknown) Plt Count 155 (units ( unknown) date) unknown) (unknown) (no (unknown) (unknown) Plt Count (units (unkn own) date) unknown) (unknown) (no (unknown) (unknown) Potassium 3.6 (units ( unknown) date) unknown) (unknown) (no (unknown) (unknown) Potassium (units (unkn own) date) unknown) (unknown) (no (unknown) (unknown) Presumed due to (units (unknown) date) soft tissue unknown) infection. CTA negative for PE, possible viral (unknown) (no (unknown) (unknown) Problem details: (units (unknown) date) unknown) (unknown) (no (unknown) (unknown) Procalcitonin (units ( unknown) date) 1.08 H unknown) (unknown) (no (unknown) (unknown) Procalcitonin (units ( unknown) date) unknown) (unknown) (no (unknown) (unknown) Protocol (units (unkno wn) date) unknown) (unknown) (no (unknown) (unknown) Provider location (units (unknown) date) (State): [place] unknown) (unknown) (no (unknown) (unknown) Provider: (units (unkn own) date) Marilu Philip unknown) (unknown) (no (unknown) (unknown) Pulse Oximetry (units (unknown) date) 100 100 unknown) (unknown) (no (unknown) (unknown) Pulse Oximetry (units (unknown) date) 100 99 unknown) (unknown) (no (unknown) (unknown) Pulse Oximetry (units (unknown) date) 100 unknown) (unknown) (no (unknown) (unknown) Pulse Oximetry 98 (units (unknown) date) 100 unknown) (unknown) (no (unknown) (unknown) Pulse Oximetry 98 (units (unknown) date) 96 unknown) (unknown) (no (unknown) (unknown) Pulse Oximetry 98 (units (unknown) date) 98 unknown) (unknown) (no (unknown) (unknown) Pulse Oximetry 98 (units (unknown) date) 99 unknown) (unknown) (no (unknown) (unknown) Pulse Oximetry 98 (units (unknown) date) unknown) (unknown) (no (unknown) (unknown) Pulse Oximetry 99 (units (unknown) date) 98 unknown) (unknown) (no (unknown) (unknown) Pulse Oximetry 99 (units (unknown) date) 99 unknown) (unknown) (no (unknown) (unknown) Pulse Oximetry 99 (units (unknown) date) unknown) (unknown) (no (unknown) (unknown) Pulse Rate 100 H (units (unknown) date) unknown) (unknown) (no (unknown) (unknown) Pulse Rate 65 (units ( unknown) date) unknown) (unknown) (no (unknown) (unknown) Pulse Rate 67 64 (units (unknown) date) unknown) (unknown) (no (unknown) (unknown) Pulse Rate 67 65 (units (unknown) date) unknown) (unknown) (no (unknown) (unknown) Pulse Rate 67 77 (units (unknown) date) unknown) (unknown) (no (unknown) (unknown) Pulse Rate 68 69 (units (unknown) date) unknown) (unknown) (no (unknown) (unknown) Pulse Rate 68 (units ( unknown) date) unknown) (unknown) (no (unknown) (unknown) Pulse Rate 69 (units ( unknown) date) unknown) (unknown) (no (unknown) (unknown) Pulse Rate 70 72 (units (unknown) date) unknown) (unknown) (no (unknown) (unknown) Pulse Rate 70 (units ( unknown) date) unknown) (unknown) (no (unknown) (unknown) Pulse Rate 71 (units ( unknown) date) unknown) (unknown) (no (unknown) (unknown) Pulse Rate 72 71 (units (unknown) date) unknown) (unknown) (no (unknown) (unknown) Pulse Rate 72 72 (units (unknown) date) unknown) (unknown) (no (unknown) (unknown) Pulse Rate 73 79 (units (unknown) date) unknown) (unknown) (no (unknown) (unknown) Pulse Rate 73 (units ( unknown) date) unknown) (unknown) (no (unknown) (unknown) Pulse Rate 74 74 (units (unknown) date) unknown) (unknown) (no (unknown) (unknown) Pulse Rate 75 (units ( unknown) date) unknown) (unknown) (no (unknown) (unknown) Pulse Rate 77 71 (units (unknown) date) unknown) (unknown) (no (unknown) (unknown) Pulse Rate 77 (units ( unknown) date) unknown) (unknown) (no (unknown) (unknown) Pulse Rate 78 63 (units (unknown) date) unknown) (unknown) (no (unknown) (unknown) Pulse Rate 78 (units ( unknown) date) unknown) (unknown) (no (unknown) (unknown) Pulse Rate 79 79 (units (unknown) date) unknown) (unknown) (no (unknown) (unknown) Pulse Rate 79 (units ( unknown) date) unknown) (unknown) (no (unknown) (unknown) Pulse Rate 80 79 (units (unknown) date) unknown) (unknown) (no (unknown) (unknown) Pulse Rate 80 81 (units (unknown) date) unknown) (unknown) (no (unknown) (unknown) Pulse Rate 80 (units ( unknown) date) unknown) (unknown) (no (unknown) (unknown) Pulse Rate 81 70 (units (unknown) date) unknown) (unknown) (no (unknown) (unknown) Pulse Rate 83 (units ( unknown) date) unknown) (unknown) (no (unknown) (unknown) Pulse Rate 89 79 (units (unknown) date) unknown) (unknown) (no (unknown) (unknown) Pulse Rate 89 80 (units (unknown) date) unknown) (unknown) (no (unknown) (unknown) Pulse Rate 89 (units ( unknown) date) unknown) (unknown) (no (unknown) (unknown) Pulse Rate 90 90 (units (unknown) date) unknown) (unknown) (no (unknown) (unknown) Pulse Rate 91 H (units (unknown) date) 99 H unknown) (unknown) (no (unknown) (unknown) Pulse Rate 93 H (units (unknown) date) unknown) (unknown) (no (unknown) (unknown) Pulse Rate 95 H (units (unknown) date) unknown) (unknown) (no (unknown) (unknown) Q24H EVERARDO Infusion (units (unknown) date) unknown) (unknown) (no (unknown) (unknown) Q8H EVERARDO (units (unkno wn) date) Administration unknown) (unknown) (no (unknown) (unknown) RBC 3.79 L (units (unk nown) date) unknown) (unknown) (no (unknown) (unknown) RBC (units (unkno wn) date) unknown) (unknown) (no (unknown) (unknown) RDW 14.1 (units (unkno wn) date) unknown) (unknown) (no (unknown) (unknown) RDW (units (unkno wn) date) unknown) (unknown) (no (unknown) (unknown) RSV (PCR) (units (unkn own) date) Negative unknown) (unknown) (no (unknown) (unknown) RSV (PCR) Not (units ( unknown) date) detected unknown) (unknown) (no (unknown) (unknown) RSV (PCR) (units (unkn own) date) unknown) (unknown) (no (unknown) (unknown) Respiratory Rate (units (unknown) date) 17 unknown) (unknown) (no (unknown) (unknown) Respiratory Rate (units (unknown) date) 19 unknown) (unknown) (no (unknown) (unknown) Respiratory Rate (units (unknown) date) 21 unknown) (unknown) (no (unknown) (unknown) Respiratory Rate (units (unknown) date) 24 unknown) (unknown) (no (unknown) (unknown) Respiratory Rate (units (unknown) date) 25 H 20 unknown) (unknown) (no (unknown) (unknown) Respiratory Rate (units (unknown) date) 25 H 36 H unknown) (unknown) (no (unknown) (unknown) Respiratory Rate (units (unknown) date) 25 H unknown) (unknown) (no (unknown) (unknown) Respiratory Rate (units (unknown) date) 26 H unknown) (unknown) (no (unknown) (unknown) Respiratory Rate (units (unknown) date) 27 H 29 H unknown) (unknown) (no (unknown) (unknown) Respiratory Rate (units (unknown) date) 27 H unknown) (unknown) (no (unknown) (unknown) Respiratory Rate (units (unknown) date) 28 H 16 unknown) (unknown) (no (unknown) (unknown) Respiratory Rate (units (unknown) date) 28 H 26 H unknown) (unknown) (no (unknown) (unknown) Respiratory Rate (units (unknown) date) 28 H 28 H unknown) (unknown) (no (unknown) (unknown) Respiratory Rate (units (unknown) date) 28 H 29 H unknown) (unknown) (no (unknown) (unknown) Respiratory Rate (units (unknown) date) 29 H 26 H unknown) (unknown) (no (unknown) (unknown) Respiratory Rate (units (unknown) date) 29 H unknown) (unknown) (no (unknown) (unknown) Respiratory Rate (units (unknown) date) 30 H 28 H unknown) (unknown) (no (unknown) (unknown) Respiratory Rate (units (unknown) date) 30 H 31 H unknown) (unknown) (no (unknown) (unknown) Respiratory Rate (units (unknown) date) 30 H 32 H unknown) (unknown) (no (unknown) (unknown) Respiratory Rate (units (unknown) date) 30 H unknown) (unknown) (no (unknown) (unknown) Respiratory Rate (units (unknown) date) 31 H 26 H unknown) (unknown) (no (unknown) (unknown) Respiratory Rate (units (unknown) date) 31 H 28 H unknown) (unknown) (no (unknown) (unknown) Respiratory Rate (units (unknown) date) 31 H 30 H unknown) (unknown) (no (unknown) (unknown) Respiratory Rate (units (unknown) date) 31 H unknown) (unknown) (no (unknown) (unknown) Respiratory Rate (units (unknown) date) 32 H 30 H unknown) (unknown) (no (unknown) (unknown) Respiratory Rate (units (unknown) date) 32 H unknown) (unknown) (no (unknown) (unknown) Respiratory Rate (units (unknown) date) 34 H 18 unknown) (unknown) (no (unknown) (unknown) Respiratory Rate (units (unknown) date) 34 H 20 unknown) (unknown) (no (unknown) (unknown) Respiratory Rate (units (unknown) date) unknown) (unknown) (no (unknown) (unknown) Result Diagrams: (units (unknown) date) unknown) (unknown) (no (unknown) (unknown) SARS-CoV-2 (PCR) (units (unknown) date) Negative unknown) (unknown) (no (unknown) (unknown) SARS-CoV-2 (PCR) (units (unknown) date) Not detected unknown) (unknown) (no (unknown) (unknown) SARS-CoV-2 (PCR) (units (unknown) date) unknown) (unknown) (no (unknown) (unknown) Schizophrenia (units ( unknown) date) unknown) (unknown) (no (unknown) (unknown) Signed (units (unkno wn) date) By:<Electronically unknown) signed by Marilu Philip> (unknown) (no (unknown) (unknown) Smoking Status: (units (unknown) date) Never smoker unknown) (unknown) (no (unknown) (unknown) Social History (units (unknown) date) unknown) (unknown) (no (unknown) (unknown) Sodium 134 L (units (u nknown) date) unknown) (unknown) (no (unknown) (unknown) Sodium (units (unkno wn) date) unknown) (unknown) (no (unknown) (unknown) Status: Acute (units ( unknown) date) unknown) (unknown) (no (unknown) (unknown) TITRATE EVERARDO 11.25 (units (unknown) date) mls/hr unknown) (unknown) (no (unknown) (unknown) 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 (units (unknown) date) Consult Note unknown) (unknown) (no (unknown) (unknown) Temperature 100.4 (units (unknown) date) F H 100.0 F H unknown) (unknown) (no (unknown) (unknown) Temperature 100.6 (units (unknown) date) F H unknown) (unknown) (no (unknown) (unknown) Temperature 98.2 (units (unknown) date) F unknown) (unknown) (no (unknown) (unknown) Temperature 98.4 (units (unknown) date) F 98.2 F unknown) (unknown) (no (unknown) (unknown) Temperature 98.4 (units (unknown) date) F 98.4 F unknown) (unknown) (no (unknown) (unknown) Temperature 98.4 (units (unknown) date) F 98.6 F unknown) (unknown) (no (unknown) (unknown) Temperature 98.4 (units (unknown) date) F unknown) (unknown) (no (unknown) (unknown) Temperature 98.6 (units (unknown) date) F 98.6 F unknown) (unknown) (no (unknown) (unknown) Temperature 98.6 (units (unknown) date) F unknown) (unknown) (no (unknown) (unknown) Temperature 98.8 (units (unknown) date) F 98.6 F unknown) (unknown) (no (unknown) (unknown) Temperature 98.8 (units (unknown) date) F unknown) (unknown) (no (unknown) (unknown) Temperature 99.0 (units (unknown) date) F 99.0 F unknown) (unknown) (no (unknown) (unknown) Temperature 99.0 (units (unknown) date) F unknown) (unknown) (no (unknown) (unknown) Temperature 99.1 (units (unknown) date) F 99.1 F unknown) (unknown) (no (unknown) (unknown) Temperature 99.1 (units (unknown) date) F unknown) (unknown) (no (unknown) (unknown) Temperature 99.3 (units (unknown) date) F unknown) (unknown) (no (unknown) (unknown) Temperature 99.7 (units (unknown) date) F H unknown) (unknown) (no (unknown) (unknown) Temperature 99.9 (units (unknown) date) F H 99.9 F H unknown) (unknown) (no (unknown) (unknown) Temperature (units (un known) date) unknown) (unknown) (no (unknown) (unknown) Time Spent With (units (unknown) date) Patient unknown) (unknown) (no (unknown) (unknown) Titration (units (unkn own) date) unknown) (unknown) (no (unknown) (unknown) Total Bilirubin (units (unknown) date) 0.5 unknown) (unknown) (no (unknown) (unknown) Total Bilirubin (units (unknown) date) unknown) (unknown) (no (unknown) (unknown) Total Creatine (units (unknown) date) Kinase 825 H unknown) (unknown) (no (unknown) (unknown) Total Creatine (units (unknown) date) Kinase unknown) (unknown) (no (unknown) (unknown) Total Protein 7.9 (units (unknown) date) unknown) (unknown) (no (unknown) (unknown) Total Protein (units ( unknown) date) unknown) (unknown) (no (unknown) (unknown) Trade Name Freq (units (unknown) date) PRN Reason Stop unknown) Dose Admin (unknown) (no (unknown) (unknown) Troponin I < (units (u nknown) date) 0.012 unknown) (unknown) (no (unknown) (unknown) Troponin I (units (unk nown) date) unknown) (unknown) (no (unknown) (unknown) Ur Culture (units (unk nown) date) Indicated? Cult unknown) not indicated (unknown) (no (unknown) (unknown) Ur Culture (units (unk nown) date) Indicated? unknown) (unknown) (no (unknown) (unknown) Ur Squamous Epith (units (unknown) date) Cells 1-5 /hpf unknown) (unknown) (no (unknown) (unknown) Ur Squamous Epith (units (unknown) date) Cells unknown) (unknown) (no (unknown) (unknown) Ur Transition (units ( unknown) date) Epith Cell 0-1/hpf unknown) (unknown) (no (unknown) (unknown) Ur Transition (units ( unknown) date) Epith Cell unknown) (unknown) (no (unknown) (unknown) Urine Bacteria (units (unknown) date) None seen unknown) (unknown) (no (unknown) (unknown) Urine Bacteria (units (unknown) date) unknown) (unknown) (no (unknown) (unknown) Urine (units (unknown) date) Test Negative unknown) (unknown) (no (unknown) (unknown) Urine (units (unknown) date) Test unknown) (unknown) (no (unknown) (unknown) Urine RBC None (units (unknown) date) seen unknown) (unknown) (no (unknown) (unknown) Urine RBC (units (unkn own) date) unknown) (unknown) (no (unknown) (unknown) Urine WBC 1-5/hpf (units (unknown) date) unknown) (unknown) (no (unknown) (unknown) Urine WBC (units (unkn own) date) unknown) (unknown) (no (unknown) (unknown) VS are WNL, (units (un known) date) Levophed is @ 3, unknown) MAP is 70. Breathing comfortably on RA. (unknown) (no (unknown) (unknown) Vancomycin HCl (units (unknown) date) 750 mg in 150 mls unknown) @ 150 mls/hr 02/07/22 18:00 02/07/22 18:30 (unknown) (no (unknown) (unknown) Vancomycin IV 150 (units (unknown) date) mls/hr unknown) (unknown) (no (unknown) (unknown) Visit Medications (units (unknown) date) (administered) unknown) (unknown) (no (unknown) (unknown) Vital Signs (units (un known) date) unknown) (unknown) (no (unknown) (unknown) WBC 4.5 (units (unkno wn) date) unknown) (unknown) (no (unknown) (unknown) WBC (units (unkno wn) date) unknown) (unknown) (no (unknown) (unknown) [Embedded Image (units (unknown) date) Not Available] unknown) (unknown) (no (unknown) (unknown) along. (units (unkno wn) date) unknown) (unknown) (no (unknown) (unknown) communication: (units (unknown) date) Camera activated unknown) (unknown) (no (unknown) (unknown) from external ear (units (unknown) date) per bedside team. unknown) (unknown) (no (unknown) (unknown) head/neck given (units (unknown) date) c/f soft-tissue unknown) infection in this area (unknown) (no (unknown) (unknown) hospital/ENT? In (units (unknown) date) the ER, after unknown) receiving IVFs had a drop in her BP thus was (unknown) (no (unknown) (unknown) household (units (unkn own) date) members: family unknown) (unknown) (no (unknown) (unknown) many years ago, (units (unknown) date) IVC filter - unknown) unclear if removed) who was admitted to the ICU (unknown) (no (unknown) (unknown) obtained from (units ( unknown) date) patient's mother unknown) using a [employer] clinical project coordinator. (unknown) (no (unknown) (unknown) olanzapine 15 mg (units (unknown) date) tablet 15 mg PO unknown) BEDTIME #90 tabs 09/23/20 [Rx Confirmed (unknown) (no (unknown) (unknown) placed on (units (unkn own) date) Levophed. A RIJ unknown) CVC was placed. In the ER, history was mainly (unknown) (no (unknown) (unknown) pneumonia? Viral (units (unknown) date) panel negative. UA unknown) negative. CXs pending. Had received 30cc/kg (unknown) (no (unknown) (unknown) this evening with (units (unknown) date) c/f septic shock. unknown) Per Hospitalist report, patient presented (unknown) (no (unknown) (unknown) today; this time (units (unknown) date) is exclusive of unknown) procedural time. (unknown) (no (unknown) (unknown) with fevers and (units (unknown) date) skin infection. unknown) Had recently been placed on [facility] by outside Result panel 467 (unknown) (no date) (unknown) (unknown) Negative for (units ( unknown) MRSA unknown) Result panel 468 (unknown) (no (unknown) (unknown) (no value) (units (unk nown) date) unknown) (unknown) (no (unknown) (unknown) 08:22 08:22 08:22 (units (unknown) date) unknown) (unknown) (no (unknown) (unknown) 08:27 08:27 08:27 (units (unknown) date) unknown) (unknown) (no (unknown) (unknown) 08:27 08:42 09:20 (units (unknown) date) unknown) (unknown) (no (unknown) (unknown) 09:20 (units (unkno wn) date) unknown) (unknown) (no (unknown) (unknown) 11:30 02/07/22 (units (unknown) date) unknown) (unknown) (no (unknown) (unknown) 11:30 (units (unkno wn) date) unknown) (unknown) (no (unknown) (unknown) 02/07/22 08:27 (units (unknown) date) unknown) (unknown) (no (unknown) (unknown) 02/07/22 02/07/22 (units (unknown) date) 02/07/22 unknown) Range/Units (unknown) (no (unknown) (unknown) 02/07/22 12:00 (units (unknown) date) unknown) (unknown) (no (unknown) (unknown) 02/07/22 (units (unkno wn) date) Range/Units unknown) (unknown) (no (unknown) (unknown) 02/07/22 (units (unkno wn) date) unknown) (unknown) (no (unknown) (unknown) 02/08/22 05:00 (units (unknown) date) unknown) (unknown) (no (unknown) (unknown) 02/09/22 05:00 (units (unknown) date) unknown) (unknown) (no (unknown) (unknown) 02/10/22 05:00 (units (unknown) date) unknown) (unknown) (no (unknown) (unknown) ABDOMEN: Soft, (units (unknown) date) nontender. unknown) Normoactive bowel sounds all 4 quadrants. No (unknown) (no (unknown) (unknown) ALT (<35) IU/L (units (unknown) date) unknown) (unknown) (no (unknown) (unknown) ALT 33 (<35) IU/L (units (unknown) date) unknown) (unknown) (no (unknown) (unknown) AST (14-36) IU/L (units (unknown) date) unknown) (unknown) (no (unknown) (unknown) AST 87 H (14-36) (units (unknown) date) IU/L unknown) (unknown) (no (unknown) (unknown) Acetaminophen (units ( unknown) date) (Acetaminophen 325 unknown) Mg Tablet) 650 mg PO Q6H PRN (unknown) (no (unknown) (unknown) Acetaminophen (units ( unknown) date) (Acetaminophen 325 unknown) Mg Tablet) 975 mg PO NOW ONE (unknown) (no (unknown) (unknown) Admin: 02/07/22 (units (unknown) date) 09:00 Dose: 1,000 unknown) mls/hr (unknown) (no (unknown) (unknown) Admin: 02/07/22 (units (unknown) date) 09:08 Dose: 200 unknown) mls/hr (unknown) (no (unknown) (unknown) Admin: 02/07/22 (units (unknown) date) 09:51 Dose: 150 unknown) mls/hr (unknown) (no (unknown) (unknown) Admin: 02/07/22 (units (unknown) date) 10:34 Dose: 382 unknown) mls/hr (unknown) (no (unknown) (unknown) Admin: 02/07/22 (units (unknown) date) 12:59 Dose: 2 unknown) mcg/min, 7.5 mls/hr (unknown) (no (unknown) (unknown) Admin: 02/07/22 (units (unknown) date) 13:11 Dose: 200 unknown) mls/hr (unknown) (no (unknown) (unknown) Admin: 02/07/22 (units (unknown) date) 16:26 Dose: 250 unknown) mls/hr (unknown) (no (unknown) (unknown) Admin: 02/07/22 (units (unknown) date) 18:30 Dose: 150 unknown) mls/hr (unknown) (no (unknown) (unknown) Admit Date/Time: (units (unknown) date) 02/07/22 11:54 unknown) (unknown) (no (unknown) (unknown) Admit Provider: (units (unknown) date) Yaakov Costa Giorgio unknown) (unknown) (no (unknown) (unknown) Age/Sex: 31 / F (units (unknown) date) unknown) (unknown) (no (unknown) (unknown) Albumin (3.5-5.0) (units (unknown) date) g/dL unknown) (unknown) (no (unknown) (unknown) Albumin 3.6 (units (un known) date) (3.5-5.0) g/dL unknown) (unknown) (no (unknown) (unknown) Albumin/Globulin (units (unknown) date) Ratio (1.0-2.8) unknown) (unknown) (no (unknown) (unknown) Albumin/Globulin (units (unknown) date) Ratio 0.8 L unknown) (1.0-2.8) (unknown) (no (unknown) (unknown) Alkaline (units (unkno wn) date) Phosphatase unknown) (38-126) U/L (unknown) (no (unknown) (unknown) Alkaline (units (unkno wn) date) Phosphatase 46 unknown) (38-126) U/L (unknown) (no (unknown) (unknown) Allergies (units (unkn own) date) unknown) (unknown) (no (unknown) (unknown) Allergy/AdvReac (units (unknown) date) Type Severity unknown) Reaction Status Date / Time (unknown) (no (unknown) (unknown) Aripiprazole (units (u nknown) date) (Aripiprazole 10 unknown) Mg Tablet) 10 mg PO DAILY EVERARDO (unknown) (no (unknown) (unknown) Azithromycin 500 (units (unknown) date) mg/ Dextrose 250 unknown) mls @ 250 mls/hr IV Q24H EVERARDO (unknown) (no (unknown) (unknown) BMP [Basic (units (unk nown) date) Metabolic Panel] unknown) DAILY (unknown) (no (unknown) (unknown) BUN (7-17) mg/dL (units (unknown) date) unknown) (unknown) (no (unknown) (unknown) BUN 14 (7-17) (units ( unknown) date) mg/dL unknown) (unknown) (no (unknown) (unknown) BUN/Creatinine (units (unknown) date) Ratio (6-22) unknown) (unknown) (no (unknown) (unknown) BUN/Creatinine (units (unknown) date) Ratio 21.9 (6-22) unknown) (unknown) (no (unknown) (unknown) Baso # (Auto) (units ( unknown) date) (0-100) /uL unknown) (unknown) (no (unknown) (unknown) Baso # (Auto) 0 (units (unknown) date) (0-100) /uL unknown) (unknown) (no (unknown) (unknown) Baso % (Auto) (units ( unknown) date) (0-2) % unknown) (unknown) (no (unknown) (unknown) Baso % (Auto) 0.5 (units (unknown) date) (0-2) % unknown) (unknown) (no (unknown) (unknown) Bedside Urine (units ( unknown) date) Bilirubin - unknown) Negative (unknown) (no (unknown) (unknown) Bedside Urine (units ( unknown) date) Glucose Negative unknown) (unknown) (no (unknown) (unknown) Bedside Urine (units ( unknown) date) Ketone - Negative unknown) (unknown) (no (unknown) (unknown) Bedside Urine (units ( unknown) date) Leukocytes - unknown) Negative (unknown) (no (unknown) (unknown) Bedside Urine (units ( unknown) date) Nitrite - Negative unknown) (unknown) (no (unknown) (unknown) Bedside Urine (units ( unknown) date) Occult Blood - unknown) Negative (unknown) (no (unknown) (unknown) Bedside Urine (units ( unknown) date) Protein + 30 unknown) (unknown) (no (unknown) (unknown) Bedside Urine (units ( unknown) date) Urobilinogen - unknown) Negative (unknown) (no (unknown) (unknown) Bedside Urine pH (units (unknown) date) 6 unknown) (unknown) (no (unknown) (unknown) Blood Pressure (units (unknown) date) 100/57 L 02/07/22 unknown) 08:10 (unknown) (no (unknown) (unknown) Blood Pressure (units (unknown) date) 100/62 unknown) (unknown) (no (unknown) (unknown) CARDIOVASCULAR: (units (unknown) date) Regular rate and unknown) rhythm without murmurs, rubs or gallops. (unknown) (no (unknown) (unknown) CBC Auto Diff (units ( unknown) date) [Complete Blood unknown) Count AUTO DIFF] DAILY (unknown) (no (unknown) (unknown) CK-MB (CK-2) (units (u nknown) date) (<2.37) ng/mL unknown) (unknown) (no (unknown) (unknown) CK-MB (CK-2) 2.02 (units (unknown) date) (<2.37) ng/mL unknown) (unknown) (no (unknown) (unknown) CK-MB (CK-2) Rel (units (unknown) date) Index (1.5-5.0) % unknown) (unknown) (no (unknown) (unknown) CK-MB (CK-2) Rel (units (unknown) date) Index 0.2 L unknown) (1.5-5.0) % (unknown) (no (unknown) (unknown) Calcium (units (unkno wn) date) (8.4-10.2) mg/dL unknown) (unknown) (no (unknown) (unknown) Calcium 8.3 L (units ( unknown) date) (8.4-10.2) mg/dL unknown) (unknown) (no (unknown) (unknown) Carbon Dioxide (units (unknown) date) (22-32) mmol/L unknown) (unknown) (no (unknown) (unknown) Carbon Dioxide 23 (units (unknown) date) (22-32) mmol/L unknown) (unknown) (no (unknown) (unknown) Ceftriaxone (units (un known) date) Sodium 1,000 mg/ unknown) (Sodium Chloride) 100 mls @ 200 mls/hr IV Q24H EVERARDO (unknown) (no (unknown) (unknown) Ceftriaxone (units (un known) date) Sodium 2,000 mg/ unknown) (Sodium Chloride) 100 mls @ 200 mls/hr IV NOW ONE (unknown) (no (unknown) (unknown) Chief Complaint: (units (unknown) date) Altered Mental unknown) Status (unknown) (no (unknown) (unknown) Chloride (98-107) (units (unknown) date) mmol/L unknown) (unknown) (no (unknown) (unknown) Chloride 99 (units (un known) date) (98-107) mmol/L unknown) (unknown) (no (unknown) (unknown) Course (units (unkno wn) date) unknown) (unknown) (no (unknown) (unknown) Creatinine (units (unk nown) date) (0.52-1.04) mg/dL unknown) (unknown) (no (unknown) (unknown) Creatinine 0.64 (units (unknown) date) (0.52-1.04) mg/dL unknown) (unknown) (no (unknown) (unknown) D-Dimer (<500) (units (unknown) date) ng/ml unknown) (unknown) (no (unknown) (unknown) D-Dimer 2351 H (units (unknown) date) (<500) ng/ml unknown) (unknown) (no (unknown) (unknown) : 1990 (units (unknown) date) Acct:[id number] unknown) (unknown) (no (unknown) (unknown) Date of Service: (units (unknown) date) 02/07/22 unknown) (unknown) (no (unknown) (unknown) Departure (units (unkn own) date) unknown) (unknown) (no (unknown) (unknown) Discharge Plan (units (unknown) date) unknown) (unknown) (no (unknown) (unknown) Discontinued (units (u nknown) date) Medications unknown) (unknown) (no (unknown) (unknown) Documented By: (units (unknown) date) HANNY unknown) (unknown) (no (unknown) (unknown) Documented By: DL (units (unknown) date) unknown) (unknown) (no (unknown) (unknown) Documented By: KM (units (unknown) date) unknown) (unknown) (no (unknown) (unknown) ED Orders (units (unkn own) date) unknown) (unknown) (no (unknown) (unknown) ER Physician: (units ( unknown) date) Amelia Unger unknown) D.O. (unknown) (no (unknown) (unknown) EXTREMITIES: (units (u nknown) date) Normal range of unknown) motion, no clubbing or edema. Neurovascularly (unknown) (no (unknown) (unknown) Emergency Report (units (unknown) date) unknown) (unknown) (no (unknown) (unknown) Enoxaparin Sodium (units (unknown) date) (Enoxaparin 40 unknown) Mg/0.4 Ml Syringe) 40 mg SUBCUT DAILY EVERARDO (unknown) (no (unknown) (unknown) Eos # (Auto) (units (u nknown) date) (0-450) /uL unknown) (unknown) (no (unknown) (unknown) Eos # (Auto) 0 (units (unknown) date) (0-450) /uL unknown) (unknown) (no (unknown) (unknown) Eos % (Auto) (units (u nknown) date) (2-4) % unknown) (unknown) (no (unknown) (unknown) Eos % (Auto) 0.0 (units (unknown) date) L (2-4) % unknown) (unknown) (no (unknown) (unknown) Esterase (units (unkno wn) date) unknown) (unknown) (no (unknown) (unknown) Estimated GFR > (units (unknown) date) 60 (>60) mL/min unknown) (unknown) (no (unknown) (unknown) Estimated GFR (units ( unknown) date) (>60) mL/min unknown) (unknown) (no (unknown) (unknown) Exam (units (unkno wn) date) unknown) (unknown) (no (unknown) (unknown) Fluoxetine HCl (units (unknown) date) (Fluoxetine 10 Mg unknown) Capsule) 20 mg PO DAILY EVERARDO (unknown) (no (unknown) (unknown) GENERAL: Thin (units ( unknown) date) 31-year-old female unknown) (unknown) (no (unknown) (unknown) : Incontinent (units (unknown) date) of urine unknown) (unknown) (no (unknown) (unknown) General (units (unkno wn) date) unknown) (unknown) (no (unknown) (unknown) Globulin (units (unkno wn) date) (1.7-4.1) g/dL unknown) (unknown) (no (unknown) (unknown) Globulin 4.3 H (units (unknown) date) (1.7-4.1) g/dL unknown) (unknown) (no (unknown) (unknown) Glucose (70-100) (units (unknown) date) mg/dL unknown) (unknown) (no (unknown) (unknown) Glucose 113 H (units ( unknown) date) (70-100) mg/dL unknown) (unknown) (no (unknown) (unknown) HEENT: Head (units (un known) date) atraumatic,EOMI, unknown) pupils reactive, multiple face scratches mostly on (unknown) (no (unknown) (unknown) HPI - Fever (units (un known) date) unknown) (unknown) (no (unknown) (unknown) HPI Narrative: (units (unknown) date) unknown) (unknown) (no (unknown) (unknown) Haloperidol (units (un known) date) (Haloperidol 5 unknown) Mg/Ml Vial) 5 mg IV Q4HR PRN (unknown) (no (unknown) (unknown) Hct (36-46) % (units ( unknown) date) unknown) (unknown) (no (unknown) (unknown) Hct 32.5 L (units (unk nown) date) (36-46) % unknown) (unknown) (no (unknown) (unknown) Hgb (12.0-16.0) (units (unknown) date) g/dL unknown) (unknown) (no (unknown) (unknown) Hgb 10.9 L (units (unk nown) date) (12.0-16.0) g/dL unknown) (unknown) (no (unknown) (unknown) 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) (unknown) (no (unknown) (unknown) History of (units (unk nown) date) Present Illness unknown) (unknown) (no (unknown) (unknown) History of (units (unk nown) date) pulmonary embolism unknown) (unknown) (no (unknown) (unknown) IV NOW ONE (units (unk nown) date) unknown) (unknown) (no (unknown) (unknown) IV Q8H EVERARDO (units (unk nown) date) unknown) (unknown) (no (unknown) (unknown) Influenza A (units (un known) date) (RT-PCR) unknown) (NEGATIVE) (unknown) (no (unknown) (unknown) Influenza A (units (un known) date) (RT-PCR) Flu a unknown) negative (NEGATIVE) (unknown) (no (unknown) (unknown) Influenza B (units (un known) date) (RT-PCR) unknown) (NEGATIVE) (unknown) (no (unknown) (unknown) Influenza B (units (un known) date) (RT-PCR) Flu b unknown) negative (NEGATIVE) (unknown) (no (unknown) (unknown) Influenza Virus (units (unknown) date) Vaccine (Influenza unknown) Vaccine Qiv 0.5 Ml Syringe) 0.5 ml IM .ONCE (unknown) (no (unknown) (unknown) Initial Vital (units ( unknown) date) Signs unknown) (unknown) (no (unknown) (unknown) Initial Vital (units ( unknown) date) Signs: unknown) (unknown) (no (unknown) (unknown) [facility] (units (unknown) date) [address] unknown) [place] [address] (unknown) (no (unknown) (unknown) Ketorolac (units (unkn own) date) Tromethamine unknown) (Ketorolac 30 Mg/Ml Vial) 15 mg IV NOW ONE (unknown) (no (unknown) (unknown) Lab Data (units (unkno wn) date) unknown) (unknown) (no (unknown) (unknown) Lab Results (units (un known) date) unknown) (unknown) (no (unknown) (unknown) Labs: (units (unkno wn) date) unknown) (unknown) (no (unknown) (unknown) Lactate (0.7-2.1) (units (unknown) date) mmol/L unknown) (unknown) (no (unknown) (unknown) Lactate 1.6 (units (un known) date) (0.7-2.1) mmol/L unknown) (unknown) (no (unknown) (unknown) Last Admin: (units (un known) date) 02/07/22 09:07 unknown) Dose: 15 mg (unknown) (no (unknown) (unknown) Last Admin: (units (un known) date) 02/07/22 11:11 unknown) Dose: 20 mg (unknown) (no (unknown) (unknown) Last Admin: (units (un known) date) 02/07/22 11:11 unknown) Dose: 975 mg (unknown) (no (unknown) (unknown) Last Admin: (units (un known) date) 02/07/22 15:53 unknown) Dose: Not Given (unknown) (no (unknown) (unknown) Last Admin: (units (un known) date) 02/07/22 17:26 unknown) Dose: Not Given (unknown) (no (unknown) (unknown) Last Admin: (units (un known) date) 02/07/22 18:15 unknown) Dose: Not Given (unknown) (no (unknown) (unknown) Last Infusion: (units (unknown) date) 02/07/22 09:57 unknown) Dose: 0 mls/hr (unknown) (no (unknown) (unknown) Last Infusion: (units (unknown) date) 02/07/22 11:17 unknown) Dose: 0 mls/hr (unknown) (no (unknown) (unknown) Last Infusion: (units (unknown) date) 02/07/22 13:16 unknown) Dose: 0 mls/hr (unknown) (no (unknown) (unknown) Last Infusion: (units (unknown) date) 02/07/22 15:53 unknown) Dose: 0 mls/hr (unknown) (no (unknown) (unknown) Last Infusion: (units (unknown) date) 02/07/22 17:27 unknown) Dose: 0 mls/hr (unknown) (no (unknown) (unknown) Last Infusion: (units (unknown) date) 02/07/22 19:45 unknown) Dose: 0 mls/hr (unknown) (no (unknown) (unknown) Last Titration: (units (unknown) date) 02/07/22 13:24 unknown) Dose: 3 mcg/min, 11.25 mls/hr (unknown) (no (unknown) (unknown) Lymph # (Auto) (units (unknown) date) (3174-9222) /uL unknown) (unknown) (no (unknown) (unknown) Lymph # (Auto) (units (unknown) date) 900 L (3659-2771) unknown) /uL (unknown) (no (unknown) (unknown) Lymph % (Auto) (units (unknown) date) (25-40) % unknown) (unknown) (no (unknown) (unknown) Lymph % (Auto) (units (unknown) date) 20.7 L (25-40) % unknown) (unknown) (no (unknown) (unknown) [id number] (units (unk nown) date) unknown) (unknown) (no (unknown) (unknown) MCH (26-34) PG (units (unknown) date) unknown) (unknown) (no (unknown) (unknown) MCH 28.7 (26-34) (units (unknown) date) PG unknown) (unknown) (no (unknown) (unknown) MCHC (30-36) % (units (unknown) date) unknown) (unknown) (no (unknown) (unknown) MCHC 33.5 (30-36) (units (unknown) date) % unknown) (unknown) (no (unknown) (unknown) MCV (80-100) fL (units (unknown) date) unknown) (unknown) (no (unknown) (unknown) MCV 85.7 (80-100) (units (unknown) date) fL unknown) (unknown) (no (unknown) (unknown) MDM - Fever (units (un known) date) unknown) (unknown) (no (unknown) (unknown) Magnesium (units (unkn own) date) (1.6-2.3) mg/dL unknown) (unknown) (no (unknown) (unknown) Magnesium 2.1 (units ( unknown) date) (1.6-2.3) mg/dL unknown) (unknown) (no (unknown) (unknown) Medical History (units (unknown) date) (Updated 02/07/22 unknown) @ 19:40 by Marilu Philip) (unknown) (no (unknown) (unknown) Medication (units (unk nown) date) Instructions unknown) Recorded (unknown) (no (unknown) (unknown) Melatonin (units (unkn own) date) (Melatonin 3 Mg unknown) Tablet) 6 mg PO BEDTIME PRN (unknown) (no (unknown) (unknown) Mode of arrival: (units (unknown) date) Wheelchair unknown) (unknown) (no (unknown) (unknown) Butts # (Auto) (units ( unknown) date) (0-900) /uL unknown) (unknown) (no (unknown) (unknown) Butts # (Auto) 500 (units (unknown) date) (0-900) /uL unknown) (unknown) (no (unknown) (unknown) Butts % (Auto) (units ( unknown) date) (3-14) % unknown) (unknown) (no (unknown) (unknown) Butts % (Auto) (units ( unknown) date) 10.1 (3-14) % unknown) (unknown) (no (unknown) (unknown) NEUROLOGICAL: (units ( unknown) date) Moving all unknown) extremities (unknown) (no (unknown) (unknown) NOREPINEPHRINE (units (unknown) date) BITARTRATE/D5W unknown) (Levophed) 4 mg in 250 mls @ 30 mls/hr IV TITRATE (unknown) (no (unknown) (unknown) Naloxone HCl (units (u nknown) date) (Naloxone 0.4 unknown) Mg/Ml Vial) 0.2 mg IV Q2MIN PRN (unknown) (no (unknown) (unknown) Neut # (Auto) (units ( unknown) date) (0847-0925) /uL unknown) (unknown) (no (unknown) (unknown) Neut # (Auto) (units ( unknown) date) 3100 (3702-1147) unknown) /uL (unknown) (no (unknown) (unknown) Neut % (Auto) (units ( unknown) date) (50-75) % unknown) (unknown) (no (unknown) (unknown) Neut % (Auto) (units ( unknown) date) 68.7 (50-75) % unknown) (unknown) (no (unknown) (unknown) ONE (units (unkno wn) date) unknown) (unknown) (no (unknown) (unknown) Olanzapine (units (unk nown) date) (Olanzapine 2.5 Mg unknown) Tablet) 5 mg PO BEDTIME EVERARDO (unknown) (no (unknown) (unknown) Olanzapine (units (unk nown) date) (Olanzapine Odt 10 unknown) Mg Tab) 20 mg PO BEDTIME EVERARDO (unknown) (no (unknown) (unknown) Olanzapine (units (unk nown) date) (Olanzapine Odt 10 unknown) Mg Tab) 20 mg PO NOW ONE (unknown) (no (unknown) (unknown) Ordered: (units (unkno wn) date) unknown) (unknown) (no (unknown) (unknown) Orders (units (unkno wn) date) unknown) (unknown) (no (unknown) (unknown) Oxygen Delivery (units (unknown) date) Method 02/07/22 unknown) 08:10 (unknown) (no (unknown) (unknown) PRN Reason: (units (un known) date) Agitation unknown) (unknown) (no (unknown) (unknown) PRN Reason: (units (un known) date) Constipation unknown) (unknown) (no (unknown) (unknown) PRN Reason: (units (un known) date) Fever/Mild Pain unknown) (1-3) (unknown) (no (unknown) (unknown) PRN Reason: (units (un known) date) Insomnia unknown) (unknown) (no (unknown) (unknown) PRN Reason: (units (un known) date) Opiate Reversal unknown) (unknown) (no (unknown) (unknown) PRN (units (unkno wn) date) unknown) (unknown) (no (unknown) (unknown) Patient History (units (unknown) date) unknown) (unknown) (no (unknown) (unknown) Patient is a (units (u nknown) date) 31-year-old female unknown) history of schizophrenia language barrier (unknown) (no (unknown) (unknown) Patient: (units (unkno wn) date) Bushra Millslene unknown) B MR#: (unknown) (no (unknown) (unknown) Piperacillin (units (u nknown) date) Sod/Tazobactam unknown) (Sod 3.375 gm/ Sodium Chloride) 100 mls @ 25 mls/hr (unknown) (no (unknown) (unknown) Piperacillin (units (u nknown) date) Sod/Tazobactam unknown) (Sod 4.5 gm/ Sodium Chloride) 100 mls @ 200 mls/hr (unknown) (no (unknown) (unknown) Piperacillin (units (u nknown) date) Sod/Tazobactam unknown) (Sod 4.5 gm/ Sodium Chloride) 100 mls @ 25 mls/hr (unknown) (no (unknown) (unknown) Plt Count (units (unkn own) date) (150-400) X103/uL unknown) (unknown) (no (unknown) (unknown) Plt Count 155 (units ( unknown) date) (150-400) X103/uL unknown) (unknown) (no (unknown) (unknown) Point of Care (units ( unknown) date) Testing unknown) (unknown) (no (unknown) (unknown) Polyethylene (units (u nknown) date) Glycol unknown) (Polyethylene Glycol 3350 17 Gm Powd.Pack) 17 gm PO DAILY (unknown) (no (unknown) (unknown) Potassium (units (unkn own) date) (3.4-5.1) mmol/L unknown) (unknown) (no (unknown) (unknown) Potassium 3.6 (units ( unknown) date) (3.4-5.1) mmol/L unknown) (unknown) (no (unknown) (unknown) Test (units (unknown) date) Results Negative unknown) (unknown) (no (unknown) (unknown) Previous Rx's (units ( unknown) date) unknown) (unknown) (no (unknown) (unknown) Procalcitonin (units ( unknown) date) (<0.5) ng/mL unknown) (unknown) (no (unknown) (unknown) Procalcitonin (units ( unknown) date) 1.08 H (<0.5) unknown) ng/mL (unknown) (no (unknown) (unknown) Procalcitonin (units ( unknown) date) Urgent unknown) (unknown) (no (unknown) (unknown) Pulse Oximetry 97 (units (unknown) date) 02/07/22 08:10 unknown) (unknown) (no (unknown) (unknown) Pulse Oximetry 98 (units (unknown) date) unknown) (unknown) (no (unknown) (unknown) Pulse Rate 121 H (units (unknown) date) 02/07/22 08:10 unknown) (unknown) (no (unknown) (unknown) Pulse Rate 93 H (units (unknown) date) unknown) (unknown) (no (unknown) (unknown) RBC (4.0-5.2) (units ( unknown) date) X106/uL unknown) (unknown) (no (unknown) (unknown) RBC 3.79 L (units (unk nown) date) (4.0-5.2) X106/uL unknown) (unknown) (no (unknown) (unknown) RDW (11.6-14.8) % (units (unknown) date) unknown) (unknown) (no (unknown) (unknown) RDW 14.1 (units (unkno wn) date) (11.6-14.8) % unknown) (unknown) (no (unknown) (unknown) RESPIRATORY: (units (u nknown) date) Breath sounds unknown) equal bilaterally, no wheezes rales or rhonchi. (unknown) (no (unknown) (unknown) ROS Unobtainable: (units (unknown) date) All systems unknown) reviewed + are unremarkable except as noted in HPI (unknown) (no (unknown) (unknown) RSV (PCR) (units (unkn own) date) (Negative) unknown) (unknown) (no (unknown) (unknown) RSV (PCR) (units (unkn own) date) Negative unknown) (Negative) (unknown) (no (unknown) (unknown) Related Data (units (u nknown) date) unknown) (unknown) (no (unknown) (unknown) Respiratory Panel (units (unknown) date) (Film Array) Stat unknown) (unknown) (no (unknown) (unknown) Respiratory Rate (units (unknown) date) 32 H unknown) (unknown) (no (unknown) (unknown) Respiratory Rate (units (unknown) date) 33 H 02/07/22 unknown) 08:10 (unknown) (no (unknown) (unknown) Result diagrams: (units (unknown) date) unknown) (unknown) (no (unknown) (unknown) Review of Systems (units (unknown) date) unknown) (unknown) (no (unknown) (unknown) SARS-CoV-2 (PCR) (units (unknown) date) (Negative) unknown) (unknown) (no (unknown) (unknown) SARS-CoV-2 (PCR) (units (unknown) date) Negative unknown) (Negative) (unknown) (no (unknown) (unknown) EVERARDO; Protocol (units ( unknown) date) unknown) (unknown) (no (unknown) (unknown) SKIN: Severe (units (u nknown) date) scalp abrasions unknown) not growing hair mild drainage erythema facial (unknown) (no (unknown) (unknown) Schizophrenia (units ( unknown) date) unknown) (unknown) (no (unknown) (unknown) Sennosides (units (unk nown) date) (Sennosides 8.6 Mg unknown) Tablet) 8.6 mg PO BID PRN (unknown) (no (unknown) (unknown) Signed By: (units (unk nown) date) unknown) (unknown) (no (unknown) (unknown) Smoking Status: (units (unknown) date) Never smoker unknown) (unknown) (no (unknown) (unknown) Social History (units (unknown) date) unknown) (unknown) (no (unknown) (unknown) Sodium (137-145) (units (unknown) date) mmol/L unknown) (unknown) (no (unknown) (unknown) Sodium 134 L (units (u nknown) date) (137-145) mmol/L unknown) (unknown) (no (unknown) (unknown) Sodium Chloride (units (unknown) date) (Normal Saline unknown) 0.9%) 1,000 mls @ 1,000 mls/hr IV BOLUS ONE (unknown) (no (unknown) (unknown) Sodium Chloride (units (unknown) date) (Normal Saline unknown) 0.9%) 1,146 mls @ 382 mls/hr 30 ml/kg infuse (unknown) (no (unknown) (unknown) Source: patient (units (unknown) date) unknown) (unknown) (no (unknown) (unknown) Stated Complaint: (units (unknown) date) she has wounds on unknown) head, not eating, mucas in nose (unknown) (no (unknown) (unknown) Stop: 02/07/22 (units (unknown) date) 08:48 unknown) (unknown) (no (unknown) (unknown) Stop: 02/07/22 (units (unknown) date) 08:50 unknown) (unknown) (no (unknown) (unknown) Stop: 02/07/22 (units (unknown) date) 09:44 unknown) (unknown) (no (unknown) (unknown) Stop: 02/07/22 (units (unknown) date) 09:48 unknown) (unknown) (no (unknown) (unknown) Stop: 02/07/22 (units (unknown) date) 11:06 unknown) (unknown) (no (unknown) (unknown) Stop: 02/07/22 (units (unknown) date) 11:07 unknown) (unknown) (no (unknown) (unknown) Stop: 02/07/22 (units (unknown) date) 11:16 unknown) (unknown) (no (unknown) (unknown) Stop: 02/07/22 (units (unknown) date) 12:56 unknown) (unknown) (no (unknown) (unknown) Stop: 02/07/22 (units (unknown) date) 13:07 unknown) (unknown) (no (unknown) (unknown) Stop: 02/07/22 (units (unknown) date) 15:39 unknown) (unknown) (no (unknown) (unknown) Stop: 02/08/22 (units (unknown) date) 09:31 unknown) (unknown) (no (unknown) (unknown) Stop: 02/08/22 (units (unknown) date) 12:01 unknown) (unknown) (no (unknown) (unknown) Stop: 02/09/22 (units (unknown) date) 18:57 unknown) (unknown) (no (unknown) (unknown) Stop: 02/11/22 (units (unknown) date) 08:59 unknown) (unknown) (no (unknown) (unknown) Substance Use (units ( unknown) date) Type: does not use unknown) (unknown) (no (unknown) (unknown) Temperature 100.6 (units (unknown) date) F H unknown) (unknown) (no (unknown) (unknown) Temperature 101.8 (units (unknown) date) F H 02/07/22 08:10 unknown) (unknown) (no (unknown) (unknown) Time Seen by (units (u nknown) date) Provider: 02/07/22 unknown) 08:08 (unknown) (no (unknown) (unknown) Total Bilirubin (units (unknown) date) (0.2-1.3) mg/dL unknown) (unknown) (no (unknown) (unknown) Total Bilirubin (units (unknown) date) 0.5 (0.2-1.3) unknown) mg/dL (unknown) (no (unknown) (unknown) Total Creatine (units (unknown) date) Kinase (30-135) unknown) U/L (unknown) (no (unknown) (unknown) Total Creatine (units (unknown) date) Kinase 825 H unknown) (30-135) U/L (unknown) (no (unknown) (unknown) Total Protein (units ( unknown) date) (6.3-8.2) g/dL unknown) (unknown) (no (unknown) (unknown) Total Protein 7.9 (units (unknown) date) (6.3-8.2) g/dL unknown) (unknown) (no (unknown) (unknown) Troponin I < (units (u nknown) date) 0.012 (0.01-0.034) unknown) ng/mL (unknown) (no (unknown) (unknown) Troponin I (units (unk nown) date) (0.01-0.034) ng/mL unknown) (unknown) (no (unknown) (unknown) Ur Culture (units (unk nown) date) Indicated? Cult unknown) not indicated (unknown) (no (unknown) (unknown) Ur Culture (units (unk nown) date) Indicated? unknown) (unknown) (no (unknown) (unknown) Ur Squamous Epith (units (unknown) date) Cells (0-5/HPF) unknown) (unknown) (no (unknown) (unknown) Ur Squamous Epith (units (unknown) date) Cells 1-5 /hpf unknown) (0-5/HPF) (unknown) (no (unknown) (unknown) Ur Transition (units ( unknown) date) Epith Cell unknown) (0-5/HPF) (unknown) (no (unknown) (unknown) Ur Transition (units ( unknown) date) Epith Cell 0-1/hpf unknown) (0-5/HPF) (unknown) (no (unknown) (unknown) Urine Bacteria (units (unknown) date) (None) unknown) (unknown) (no (unknown) (unknown) Urine Bacteria (units (unknown) date) None seen (None) unknown) (unknown) (no (unknown) (unknown) Urine Dip (units (unkn own) date) unknown) (unknown) (no (unknown) (unknown) Urine (units (unknown) date) Test (Negative) unknown) (unknown) (no (unknown) (unknown) Urine (units (unknown) date) Test Negative unknown) (Negative) (unknown) (no (unknown) (unknown) Urine RBC (units (unkn own) date) (0-5/HPF) unknown) (unknown) (no (unknown) (unknown) Urine RBC None (units (unknown) date) seen (0-5/HPF) unknown) (unknown) (no (unknown) (unknown) Urine Specific (units (unknown) date) [place] 1.015 unknown) (unknown) (no (unknown) (unknown) Urine WBC (units (unkn own) date) (0-5/HPF) unknown) (unknown) (no (unknown) (unknown) Urine WBC 1-5/hpf (units (unknown) date) (0-5/HPF) unknown) (unknown) (no (unknown) (unknown) Vancomycin HCl (units (unknown) date) (Vancomycin Peak) unknown) 1 request MISC NOW ONE (unknown) (no (unknown) (unknown) Vancomycin HCl (units (unknown) date) (Vancomycin Per unknown) Pharmacy) 1 request MISC NOW ONE (unknown) (no (unknown) (unknown) Vancomycin HCl (units (unknown) date) (Vancomycin unknown) Trough) 1 request MISC NOW ONE (unknown) (no (unknown) (unknown) Vancomycin HCl (units (unknown) date) (Vancomycin) 750 unknown) mg in 150 mls @ 150 mls/hr IV NOW ONE (unknown) (no (unknown) (unknown) Vancomycin HCl (units (unknown) date) (Vancomycin) 750 unknown) mg in 150 mls @ 150 mls/hr IV Q8H EVERARDO (unknown) (no (unknown) (unknown) Vital Signs - 8 (units (unknown) date) hr unknown) (unknown) (no (unknown) (unknown) Vital Signs (units (un known) date) unknown) (unknown) (no (unknown) (unknown) Vital signs: (units (u nknown) date) unknown) (unknown) (no (unknown) (unknown) WBC (4.5-11.0) (units (unknown) date) X103/uL unknown) (unknown) (no (unknown) (unknown) WBC 4.5 (units (unkno wn) date) (4.5-11.0) X103/uL unknown) (unknown) (no (unknown) (unknown) [Embedded Image (units (unknown) date) Not Available] unknown) (unknown) (no (unknown) (unknown) and below, (units (unk nown) date) Unobtainable due unknown) to medical condition and Unobtainable due to mental (unknown) (no (unknown) (unknown) and her face. (units ( unknown) date) They went to unknown) [facility] last week she said she got an IV, (unknown) (no (unknown) (unknown) behavior has (units (u nknown) date) changed some in unknown) regards to she is spitting more. They do not (unknown) (no (unknown) (unknown) blood work and (units (unknown) date) doxepin for the unknown) itching. It was recommended that patient be (unknown) (no (unknown) (unknown) condition (units (unkn own) date) unknown) (unknown) (no (unknown) (unknown) difficult to (units (u nknown) date) tell. They state unknown) that her communication has not changed. She (unknown) (no (unknown) (unknown) guarding or (units (un known) date) rebound. unknown) (unknown) (no (unknown) (unknown) household (units (unkn own) date) members: family unknown) (unknown) (no (unknown) (unknown) intact (units (unkno wn) date) unknown) (unknown) (no (unknown) (unknown) is not eating she (units (unknown) date) continues to drink unknown) some. She started spitting more. Her (unknown) (no (unknown) (unknown) mirtazapine (units (un known) date) AdvReac unknown) Intermediate Rash severe Verified 01/30/22 06:52 (unknown) (no (unknown) (unknown) olanzapine 15 mg (units (unknown) date) tablet 15 mg PO unknown) BEDTIME #90 tabs 09/23/20 (unknown) (no (unknown) (unknown) over 3 hr (1146 (units (unknown) date) ml) IV NOW ONE unknown) (unknown) (no (unknown) (unknown) placed for (units (unk nown) date) psychiatric unknown) hospitalization but after a long wait parents (unknown) (no (unknown) (unknown) poorly controled (units (unknown) date) schizophrenia she unknown) has frequent itching/picking she has (unknown) (no (unknown) (unknown) primary history (units (unknown) date) is taken from mom unknown) using language line. Patient has severe (unknown) (no (unknown) (unknown) reconsidered and (units (unknown) date) wanted to take her unknown) home. She developed a fever last night she (unknown) (no (unknown) (unknown) report worsening (units (unknown) date) hallucinations unknown) although patient really does not seem verbal (unknown) (no (unknown) (unknown) scratched her (units ( unknown) date) head so often the unknown) wounds on her head are actually getting worse (unknown) (no (unknown) (unknown) scratches (units (unkn own) date) unknown) (unknown) (no (unknown) (unknown) sniffing. She (units ( unknown) date) denies any pain. unknown) Mom reports cough. (unknown) (no (unknown) (unknown) the right cheek (units (unknown) date) unknown) Result panel 469 (unknown) (no (unknown) (unknown) (no value) (units (unk nown) date) unknown) (unknown) (no (unknown) (unknown) 08:22 08:22 08:22 (units (unknown) date) unknown) (unknown) (no (unknown) (unknown) 08:27 08:27 08:27 (units (unknown) date) unknown) (unknown) (no (unknown) (unknown) 08:27 08:42 09:20 (units (unknown) date) unknown) (unknown) (no (unknown) (unknown) 09:20 (units (unkno wn) date) unknown) (unknown) (no (unknown) (unknown) 11:30 02/07/22 (units (unknown) date) unknown) (unknown) (no (unknown) (unknown) 11:30 (units (unkno wn) date) unknown) (unknown) (no (unknown) (unknown) 02/07/22 08:27 (units (unknown) date) unknown) (unknown) (no (unknown) (unknown) 02/07/22 02/07/22 (units (unknown) date) 02/07/22 unknown) Range/Units (unknown) (no (unknown) (unknown) 02/07/22 12:00 (units (unknown) date) unknown) (unknown) (no (unknown) (unknown) 02/07/22 (units (unkno wn) date) Range/Units unknown) (unknown) (no (unknown) (unknown) 02/07/22 (units (unkno wn) date) unknown) (unknown) (no (unknown) (unknown) 02/08/22 05:00 (units (unknown) date) unknown) (unknown) (no (unknown) (unknown) 02/09/22 05:00 (units (unknown) date) unknown) (unknown) (no (unknown) (unknown) 02/10/22 05:00 (units (unknown) date) unknown) (unknown) (no (unknown) (unknown) ? (units (unkno wn) date) unknown) (unknown) (no (unknown) (unknown) ABDOMEN: Soft, (units (unknown) date) nontender. unknown) Normoactive bowel sounds all 4 quadrants. No (unknown) (no (unknown) (unknown) ALT (<35) IU/L (units (unknown) date) unknown) (unknown) (no (unknown) (unknown) ALT 33 (<35) IU/L (units (unknown) date) unknown) (unknown) (no (unknown) (unknown) AST (14-36) IU/L (units (unknown) date) unknown) (unknown) (no (unknown) (unknown) AST 87 H (14-36) (units (unknown) date) IU/L unknown) (unknown) (no (unknown) (unknown) Accession Number: (units (unknown) date) [id number] ?? unknown) (unknown) (no (unknown) (unknown) Acct:[id number] (units (unknown) date) unknown) (unknown) (no (unknown) (unknown) Acetaminophen (units ( unknown) date) (Acetaminophen 325 unknown) Mg Tablet) 650 mg PO Q6H PRN (unknown) (no (unknown) (unknown) Acetaminophen (units ( unknown) date) (Acetaminophen 325 unknown) Mg Tablet) 975 mg PO NOW ONE (unknown) (no (unknown) (unknown) Admin: 02/07/22 (units (unknown) date) 09:00 Dose: 1,000 unknown) mls/hr (unknown) (no (unknown) (unknown) Admin: 02/07/22 (units (unknown) date) 09:08 Dose: 200 unknown) mls/hr (unknown) (no (unknown) (unknown) Admin: 02/07/22 (units (unknown) date) 09:51 Dose: 150 unknown) mls/hr (unknown) (no (unknown) (unknown) Admin: 02/07/22 (units (unknown) date) 10:34 Dose: 382 unknown) mls/hr (unknown) (no (unknown) (unknown) Admin: 02/07/22 (units (unknown) date) 12:59 Dose: 2 unknown) mcg/min, 7.5 mls/hr (unknown) (no (unknown) (unknown) Admin: 02/07/22 (units (unknown) date) 13:11 Dose: 200 unknown) mls/hr (unknown) (no (unknown) (unknown) Admin: 02/07/22 (units (unknown) date) 16:26 Dose: 250 unknown) mls/hr (unknown) (no (unknown) (unknown) Admin: 02/07/22 (units (unknown) date) 18:30 Dose: 150 unknown) mls/hr (unknown) (no (unknown) (unknown) Admit Date/Time: (units (unknown) date) 02/07/22 11:54 unknown) (unknown) (no (unknown) (unknown) Admit Provider: (units (unknown) date) Yaakov Costa unknown) (unknown) (no (unknown) (unknown) Age/Sex: 31 / F (units (unknown) date) unknown) (unknown) (no (unknown) (unknown) Albumin (3.5-5.0) (units (unknown) date) g/dL unknown) (unknown) (no (unknown) (unknown) Albumin 3.6 (units (un known) date) (3.5-5.0) g/dL unknown) (unknown) (no (unknown) (unknown) Albumin/Globulin (units (unknown) date) Ratio (1.0-2.8) unknown) (unknown) (no (unknown) (unknown) Albumin/Globulin (units (unknown) date) Ratio 0.8 L unknown) (1.0-2.8) (unknown) (no (unknown) (unknown) Alkaline (units (unkno wn) date) Phosphatase unknown) (38-126) U/L (unknown) (no (unknown) (unknown) Alkaline (units (unkno wn) date) Phosphatase 46 unknown) (38-126) U/L (unknown) (no (unknown) (unknown) Allergies (units (unkn own) date) unknown) (unknown) (no (unknown) (unknown) Allergy/AdvReac (units (unknown) date) Type Severity unknown) Reaction Status Date / Time (unknown) (no (unknown) (unknown) Approved by: (units (u nknown) date) Mikel Nur M.D. on unknown) 02/07/2022 at 9:09 ? (unknown) (no (unknown) (unknown) Aripiprazole (units (u nknown) date) (Aripiprazole 10 unknown) Mg Tablet) 10 mg PO DAILY EVERARDO (unknown) (no (unknown) (unknown) Azithromycin 500 (units (unknown) date) mg/ Dextrose 250 unknown) mls @ 250 mls/hr IV Q24H EVERARDO (unknown) (no (unknown) (unknown) BMP [Basic (units (unk nown) date) Metabolic Panel] unknown) DAILY (unknown) (no (unknown) (unknown) BUN (7-17) mg/dL (units (unknown) date) unknown) (unknown) (no (unknown) (unknown) BUN 14 (7-17) (units ( unknown) date) mg/dL unknown) (unknown) (no (unknown) (unknown) BUN/Creatinine (units (unknown) date) Ratio (6-22) unknown) (unknown) (no (unknown) (unknown) BUN/Creatinine (units (unknown) date) Ratio 21.9 (6-22) unknown) (unknown) (no (unknown) (unknown) Baso # (Auto) (units ( unknown) date) (0-100) /uL unknown) (unknown) (no (unknown) (unknown) Baso # (Auto) 0 (units (unknown) date) (0-100) /uL unknown) (unknown) (no (unknown) (unknown) Baso % (Auto) (units ( unknown) date) (0-2) % unknown) (unknown) (no (unknown) (unknown) Baso % (Auto) 0.5 (units (unknown) date) (0-2) % unknown) (unknown) (no (unknown) (unknown) Bedside Urine (units ( unknown) date) Bilirubin - unknown) Negative (unknown) (no (unknown) (unknown) Bedside Urine (units ( unknown) date) Glucose Negative unknown) (unknown) (no (unknown) (unknown) Bedside Urine (units ( unknown) date) Ketone - Negative unknown) (unknown) (no (unknown) (unknown) Bedside Urine (units ( unknown) date) Leukocytes - unknown) Negative (unknown) (no (unknown) (unknown) Bedside Urine (units ( unknown) date) Nitrite - Negative unknown) (unknown) (no (unknown) (unknown) Bedside Urine (units ( unknown) date) Occult Blood - unknown) Negative (unknown) (no (unknown) (unknown) Bedside Urine (units ( unknown) date) Protein + 30 unknown) (unknown) (no (unknown) (unknown) Bedside Urine (units ( unknown) date) Urobilinogen - unknown) Negative (unknown) (no (unknown) (unknown) Bedside Urine pH (units (unknown) date) 6 unknown) (unknown) (no (unknown) (unknown) Blood Pressure (units (unknown) date) 100/57 L 02/07/22 unknown) 08:10 (unknown) (no (unknown) (unknown) Blood Pressure (units (unknown) date) 100/62 unknown) (unknown) (no (unknown) (unknown) Bones and chest (units (unknown) date) wall:? No unknown) suspicious bony lesions.? Overlying soft tissues (unknown) (no (unknown) (unknown) CARDIOVASCULAR: (units (unknown) date) Regular rate and unknown) rhythm without murmurs, rubs or gallops. (unknown) (no (unknown) (unknown) CBC Auto Diff (units ( unknown) date) [Complete Blood unknown) Count AUTO DIFF] DAILY (unknown) (no (unknown) (unknown) CK-MB (CK-2) (units (u nknown) date) (<2.37) ng/mL unknown) (unknown) (no (unknown) (unknown) CK-MB (CK-2) 2.02 (units (unknown) date) (<2.37) ng/mL unknown) (unknown) (no (unknown) (unknown) CK-MB (CK-2) Rel (units (unknown) date) Index (1.5-5.0) % unknown) (unknown) (no (unknown) (unknown) CK-MB (CK-2) Rel (units (unknown) date) Index 0.2 L unknown) (1.5-5.0) % (unknown) (no (unknown) (unknown) COMPARISON:? (units (u nknown) date) [facility] unknown) Hospital, CR, XR CHEST 1 VIEW, 12/01/2018, 14:33. (unknown) (no (unknown) (unknown) Calcium (units (unkno wn) date) (8.4-10.2) mg/dL unknown) (unknown) (no (unknown) (unknown) Calcium 8.3 L (units ( unknown) date) (8.4-10.2) mg/dL unknown) (unknown) (no (unknown) (unknown) Carbon Dioxide (units (unknown) date) (22-32) mmol/L unknown) (unknown) (no (unknown) (unknown) Carbon Dioxide 23 (units (unknown) date) (22-32) mmol/L unknown) (unknown) (no (unknown) (unknown) Ceftriaxone (units (un known) date) Sodium 1,000 mg/ unknown) (Sodium Chloride) 100 mls @ 200 mls/hr IV Q24H EVERARDO (unknown) (no (unknown) (unknown) Ceftriaxone (units (un known) date) Sodium 2,000 mg/ unknown) (Sodium Chloride) 100 mls @ 200 mls/hr IV NOW ONE (unknown) (no (unknown) (unknown) Chest x-ray: (units (u nknown) date) unknown) (unknown) (no (unknown) (unknown) Chief Complaint: (units (unknown) date) Altered Mental unknown) Status (unknown) (no (unknown) (unknown) Chloride (98-107) (units (unknown) date) mmol/L unknown) (unknown) (no (unknown) (unknown) Chloride 99 (units (un known) date) (98-107) mmol/L unknown) (unknown) (no (unknown) (unknown) Course (units (unkno wn) date) unknown) (unknown) (no (unknown) (unknown) Creatinine (units (unk nown) date) (0.52-1.04) mg/dL unknown) (unknown) (no (unknown) (unknown) Creatinine 0.64 (units (unknown) date) (0.52-1.04) mg/dL unknown) (unknown) (no (unknown) (unknown) D-Dimer (<500) (units (unknown) date) ng/ml unknown) (unknown) (no (unknown) (unknown) D-Dimer 2351 H (units (unknown) date) (<500) ng/ml unknown) (unknown) (no (unknown) (unknown) : 1990 (units (unknown) date) Acct:[id number] unknown) (unknown) (no (unknown) (unknown) : 1990 (units (unknown) date) unknown) (unknown) (no (unknown) (unknown) Date of Service: (units (unknown) date) 02/07/22 unknown) (unknown) (no (unknown) (unknown) Departure (units (unkn own) date) unknown) (unknown) (no (unknown) (unknown) Dictated by: (units (u nknown) date) Mikel Nur M.D. on unknown) 02/07/2022 at 9:08 ? ? (unknown) (no (unknown) (unknown) Discharge Plan (units (unknown) date) unknown) (unknown) (no (unknown) (unknown) Discontinued (units (u nknown) date) Medications unknown) (unknown) (no (unknown) (unknown) Documented By: (units (unknown) date) HANNY unknown) (unknown) (no (unknown) (unknown) Documented By: DL (units (unknown) date) unknown) (unknown) (no (unknown) (unknown) Documented By: KM (units (unknown) date) unknown) (unknown) (no (unknown) (unknown) ED Orders (units (unkn own) date) unknown) (unknown) (no (unknown) (unknown) ER Physician: (units ( unknown) date) Amelia Unger unknown) D.O. (unknown) (no (unknown) (unknown) EXTREMITIES: (units (u nknown) date) Normal range of unknown) motion, no clubbing or edema. Neurovascularly (unknown) (no (unknown) (unknown) Emergency Report (units (unknown) date) unknown) (unknown) (no (unknown) (unknown) Enoxaparin Sodium (units (unknown) date) (Enoxaparin 40 unknown) Mg/0.4 Ml Syringe) 40 mg SUBCUT DAILY EVERARDO (unknown) (no (unknown) (unknown) Eos # (Auto) (units (u nknown) date) (0-450) /uL unknown) (unknown) (no (unknown) (unknown) Eos # (Auto) 0 (units (unknown) date) (0-450) /uL unknown) (unknown) (no (unknown) (unknown) Eos % (Auto) (units (u nknown) date) (2-4) % unknown) (unknown) (no (unknown) (unknown) Eos % (Auto) 0.0 (units (unknown) date) L (2-4) % unknown) (unknown) (no (unknown) (unknown) Esterase (units (unkno wn) date) unknown) (unknown) (no (unknown) (unknown) Estimated GFR > (units (unknown) date) 60 (>60) mL/min unknown) (unknown) (no (unknown) (unknown) Estimated GFR (units ( unknown) date) (>60) mL/min unknown) (unknown) (no (unknown) (unknown) Exam (units (unkno wn) date) unknown) (unknown) (no (unknown) (unknown) FINDINGS:? (units (unk nown) date) unknown) (unknown) (no (unknown) (unknown) Findings are (units (u nknown) date) unknown) (unknown) (no (unknown) (unknown) Fluoxetine HCl (units (unknown) date) (Fluoxetine 10 Mg unknown) Capsule) 20 mg PO DAILY EVERARDO (unknown) (no (unknown) (unknown) GENERAL: Thin (units ( unknown) date) 31-year-old female unknown) (unknown) (no (unknown) (unknown) : Incontinent (units (unknown) date) of urine unknown) (unknown) (no (unknown) (unknown) General (units (unkno wn) date) unknown) (unknown) (no (unknown) (unknown) Globulin (units (unkno wn) date) (1.7-4.1) g/dL unknown) (unknown) (no (unknown) (unknown) Globulin 4.3 H (units (unknown) date) (1.7-4.1) g/dL unknown) (unknown) (no (unknown) (unknown) Glucose (70-100) (units (unknown) date) mg/dL unknown) (unknown) (no (unknown) (unknown) Glucose 113 H (units ( unknown) date) (70-100) mg/dL unknown) (unknown) (no (unknown) (unknown) HEENT: Head (units (un known) date) atraumatic,EOMI, unknown) pupils reactive, multiple face scratches mostly on (unknown) (no (unknown) (unknown) HPI - Fever (units (un known) date) unknown) (unknown) (no (unknown) (unknown) HPI Narrative: (units (unknown) date) unknown) (unknown) (no (unknown) (unknown) Haloperidol (units (un known) date) (Haloperidol 5 unknown) Mg/Ml Vial) 5 mg IV Q4HR PRN (unknown) (no (unknown) (unknown) Hct (36-46) % (units ( unknown) date) unknown) (unknown) (no (unknown) (unknown) Hct 32.5 L (units (unk nown) date) (36-46) % unknown) (unknown) (no (unknown) (unknown) Hgb (12.0-16.0) (units (unknown) date) g/dL unknown) (unknown) (no (unknown) (unknown) Hgb 10.9 L (units (unk nown) date) (12.0-16.0) g/dL unknown) (unknown) (no (unknown) (unknown) 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) (unknown) (no (unknown) (unknown) History of (units (unk nown) date) Present Illness unknown) (unknown) (no (unknown) (unknown) History of (units (unk nown) date) pulmonary embolism unknown) (unknown) (no (unknown) (unknown) IMPRESSION:? (units (u nknown) date) Diffuse unknown) interstitial prominence without focal consolidation.? (unknown) (no (unknown) (unknown) INDICATIONS:? (units ( unknown) date) fever unknown) (unknown) (no (unknown) (unknown) IV NOW ONE (units (unk nown) date) unknown) (unknown) (no (unknown) (unknown) IV Q8H EVERARDO (units (unk nown) date) unknown) (unknown) (no (unknown) (unknown) Imaging Data (units (u nknown) date) unknown) (unknown) (no (unknown) (unknown) Influenza A (units (un known) date) (RT-PCR) unknown) (NEGATIVE) (unknown) (no (unknown) (unknown) Influenza A (units (un known) date) (RT-PCR) Flu a unknown) negative (NEGATIVE) (unknown) (no (unknown) (unknown) Influenza B (units (un known) date) (RT-PCR) unknown) (NEGATIVE) (unknown) (no (unknown) (unknown) Influenza B (units (un known) date) (RT-PCR) Flu b unknown) negative (NEGATIVE) (unknown) (no (unknown) (unknown) Influenza Virus (units (unknown) date) Vaccine (Influenza unknown) Vaccine Qiv 0.5 Ml Syringe) 0.5 ml IM .ONCE (unknown) (no (unknown) (unknown) Initial Vital (units ( unknown) date) Signs unknown) (unknown) (no (unknown) (unknown) Initial Vital (units ( unknown) date) Signs: unknown) (unknown) (no (unknown) (unknown) [facility] (units (unknown) date) [address] [place] [address] unknown) [place] [address] (unknown) (no (unknown) (unknown) Ketorolac (units (unkn own) date) Tromethamine unknown) (Ketorolac 30 Mg/Ml Vial) 15 mg IV NOW ONE (unknown) (no (unknown) (unknown) Lab Data (units (unkno wn) date) unknown) (unknown) (no (unknown) (unknown) Lab Results (units (un known) date) unknown) (unknown) (no (unknown) (unknown) Labs: (units (unkno wn) date) unknown) (unknown) (no (unknown) (unknown) Lactate (0.7-2.1) (units (unknown) date) mmol/L unknown) (unknown) (no (unknown) (unknown) Lactate 1.6 (units (un known) date) (0.7-2.1) mmol/L unknown) (unknown) (no (unknown) (unknown) Last Admin: (units (un known) date) 02/07/22 09:07 unknown) Dose: 15 mg (unknown) (no (unknown) (unknown) Last Admin: (units (un known) date) 02/07/22 11:11 unknown) Dose: 20 mg (unknown) (no (unknown) (unknown) Last Admin: (units (un known) date) 02/07/22 11:11 unknown) Dose: 975 mg (unknown) (no (unknown) (unknown) Last Admin: (units (un known) date) 02/07/22 15:53 unknown) Dose: Not Given (unknown) (no (unknown) (unknown) Last Admin: (units (un known) date) 02/07/22 17:26 unknown) Dose: Not Given (unknown) (no (unknown) (unknown) Last Admin: (units (un known) date) 02/07/22 18:15 unknown) Dose: Not Given (unknown) (no (unknown) (unknown) Last Infusion: (units (unknown) date) 02/07/22 09:57 unknown) Dose: 0 mls/hr (unknown) (no (unknown) (unknown) Last Infusion: (units (unknown) date) 02/07/22 11:17 unknown) Dose: 0 mls/hr (unknown) (no (unknown) (unknown) Last Infusion: (units (unknown) date) 02/07/22 13:16 unknown) Dose: 0 mls/hr (unknown) (no (unknown) (unknown) Last Infusion: (units (unknown) date) 02/07/22 15:53 unknown) Dose: 0 mls/hr (unknown) (no (unknown) (unknown) Last Infusion: (units (unknown) date) 02/07/22 17:27 unknown) Dose: 0 mls/hr (unknown) (no (unknown) (unknown) Last Infusion: (units (unknown) date) 02/07/22 19:45 unknown) Dose: 0 mls/hr (unknown) (no (unknown) (unknown) Last Titration: (units (unknown) date) 02/07/22 13:24 unknown) Dose: 3 mcg/min, 11.25 mls/hr (unknown) (no (unknown) (unknown) Loc: ED (units (unkno wn) date) unknown) (unknown) (no (unknown) (unknown) Lungs and pleura:? (units (unknown) date) Diffuse unknown) interstitial prominence.? No focal consolidation.? No (unknown) (no (unknown) (unknown) Lymph # (Auto) (units (unknown) date) (8598-7007) /uL unknown) (unknown) (no (unknown) (unknown) Lymph # (Auto) (units (unknown) date) 900 L (9064-2409) unknown) /uL (unknown) (no (unknown) (unknown) Lymph % (Auto) (units (unknown) date) (25-40) % unknown) (unknown) (no (unknown) (unknown) Lymph % (Auto) (units (unknown) date) 20.7 L (25-40) % unknown) (unknown) (no (unknown) (unknown) [id number] (units (unk nown) date) unknown) (unknown) (no (unknown) (unknown) MCH (26-34) PG (units (unknown) date) unknown) (unknown) (no (unknown) (unknown) MCH 28.7 (26-34) (units (unknown) date) PG unknown) (unknown) (no (unknown) (unknown) MCHC (30-36) % (units (unknown) date) unknown) (unknown) (no (unknown) (unknown) MCHC 33.5 (30-36) (units (unknown) date) % unknown) (unknown) (no (unknown) (unknown) MCV (80-100) fL (units (unknown) date) unknown) (unknown) (no (unknown) (unknown) MCV 85.7 (80-100) (units (unknown) date) fL unknown) (unknown) (no (unknown) (unknown) MDM - Fever (units (un known) date) unknown) (unknown) (no (unknown) (unknown) MDM Narrative (units ( unknown) date) unknown) (unknown) (no (unknown) (unknown) MR#: [id number] (units (unknown) date) unknown) (unknown) (no (unknown) (unknown) Magnesium (units (unkn own) date) (1.6-2.3) mg/dL unknown) (unknown) (no (unknown) (unknown) Magnesium 2.1 (units ( unknown) date) (1.6-2.3) mg/dL unknown) (unknown) (no (unknown) (unknown) Mediastinum:? (units ( unknown) date) Mediastinal unknown) contours appear normal.? Heart size is normal.? (unknown) (no (unknown) (unknown) Medical History (units (unknown) date) (Updated 02/07/22 unknown) @ 19:40 by Marilu Philip) (unknown) (no (unknown) (unknown) Medical decision (units (unknown) date) making narrative: unknown) (unknown) (no (unknown) (unknown) Medication (units (unk nown) date) Instructions unknown) Recorded (unknown) (no (unknown) (unknown) Melatonin (units (unkn own) date) (Melatonin 3 Mg unknown) Tablet) 6 mg PO BEDTIME PRN (unknown) (no (unknown) (unknown) Mode of arrival: (units (unknown) date) Wheelchair unknown) (unknown) (no (unknown) (unknown) Butts # (Auto) (units ( unknown) date) (0-900) /uL unknown) (unknown) (no (unknown) (unknown) Butts # (Auto) 500 (units (unknown) date) (0-900) /uL unknown) (unknown) (no (unknown) (unknown) Butts % (Auto) (units ( unknown) date) (3-14) % unknown) (unknown) (no (unknown) (unknown) Butts % (Auto) (units ( unknown) date) 10.1 (3-14) % unknown) (unknown) (no (unknown) (unknown) NEUROLOGICAL: (units ( unknown) date) Moving all unknown) extremities (unknown) (no (unknown) (unknown) NOREPINEPHRINE (units (unknown) date) BITARTRATE/D5W unknown) (Levophed) 4 mg in 250 mls @ 30 mls/hr IV TITRATE (unknown) (no (unknown) (unknown) Naloxone HCl (units (u nknown) date) (Naloxone 0.4 unknown) Mg/Ml Vial) 0.2 mg IV Q2MIN PRN (unknown) (no (unknown) (unknown) Neut # (Auto) (units ( unknown) date) (8786-6851) /uL unknown) (unknown) (no (unknown) (unknown) Neut # (Auto) (units ( unknown) date) 3100 (3927-4461) unknown) /uL (unknown) (no (unknown) (unknown) Neut % (Auto) (units ( unknown) date) (50-75) % unknown) (unknown) (no (unknown) (unknown) Neut % (Auto) (units ( unknown) date) 68.7 (50-75) % unknown) (unknown) (no (unknown) (unknown) ONE (units (unkno wn) date) unknown) (unknown) (no (unknown) (unknown) Olanzapine (units (unk nown) date) (Olanzapine 2.5 Mg unknown) Tablet) 5 mg PO BEDTIME EVERARDO (unknown) (no (unknown) (unknown) Olanzapine (units (unk nown) date) (Olanzapine Odt 10 unknown) Mg Tab) 20 mg PO BEDTIME EVERARDO (unknown) (no (unknown) (unknown) Olanzapine (units (unk nown) date) (Olanzapine Odt 10 unknown) Mg Tab) 20 mg PO NOW ONE (unknown) (no (unknown) (unknown) Ordered: (units (unkno wn) date) unknown) (unknown) (no (unknown) (unknown) Ordering (units (unkno wn) date) Provider: unknown) Amelia Unger D.O. (unknown) (no (unknown) (unknown) Orders (units (unkno wn) date) unknown) (unknown) (no (unknown) (unknown) Oxygen Delivery (units (unknown) date) Method 02/07/22 unknown) 08:10 (unknown) (no (unknown) (unknown) PRN Reason: (units (un known) date) Agitation unknown) (unknown) (no (unknown) (unknown) PRN Reason: (units (un known) date) Constipation unknown) (unknown) (no (unknown) (unknown) PRN Reason: (units (un known) date) Fever/Mild Pain unknown) (1-3) (unknown) (no (unknown) (unknown) PRN Reason: (units (un known) date) Insomnia unknown) (unknown) (no (unknown) (unknown) PRN Reason: (units (un known) date) Opiate Reversal unknown) (unknown) (no (unknown) (unknown) PRN (units (unkno wn) date) unknown) (unknown) (no (unknown) (unknown) PROCEDURE:? XR (units (unknown) date) CHEST 1V unknown) (unknown) (no (unknown) (unknown) Patient History (units (unknown) date) unknown) (unknown) (no (unknown) (unknown) Patient is a (units (u nknown) date) 31-year-old female unknown) history of schizophrenia language barrier (unknown) (no (unknown) (unknown) Patient presents (units (unknown) date) today with fever, unknown) decreased appetite decreased oral intake and (unknown) (no (unknown) (unknown) Patient: (units (unkno wn) date) Vanessa Mills unknown) B MR#: (unknown) (no (unknown) (unknown) Patient: (units (unkno wn) date) Vanessa Mills unknown) B (unknown) (no (unknown) (unknown) Piperacillin (units (u nknown) date) Sod/Tazobactam unknown) (Sod 3.375 gm/ Sodium Chloride) 100 mls @ 25 mls/hr (unknown) (no (unknown) (unknown) Piperacillin (units (u nknown) date) Sod/Tazobactam unknown) (Sod 4.5 gm/ Sodium Chloride) 100 mls @ 200 mls/hr (unknown) (no (unknown) (unknown) Piperacillin (units (u nknown) date) Sod/Tazobactam unknown) (Sod 4.5 gm/ Sodium Chloride) 100 mls @ 25 mls/hr (unknown) (no (unknown) (unknown) Plt Count (units (unkn own) date) (150-400) X103/uL unknown) (unknown) (no (unknown) (unknown) Plt Count 155 (units ( unknown) date) (150-400) X103/uL unknown) (unknown) (no (unknown) (unknown) Point of Care (units ( unknown) date) Testing unknown) (unknown) (no (unknown) (unknown) Polyethylene (units (u nknown) date) Glycol unknown) (Polyethylene Glycol 3350 17 Gm Powd.Pack) 17 gm PO DAILY (unknown) (no (unknown) (unknown) Potassium (units (unkn own) date) (3.4-5.1) mmol/L unknown) (unknown) (no (unknown) (unknown) Potassium 3.6 (units ( unknown) date) (3.4-5.1) mmol/L unknown) (unknown) (no (unknown) (unknown) Test (units (unknown) date) Results Negative unknown) (unknown) (no (unknown) (unknown) Previous Rx's (units ( unknown) date) unknown) (unknown) (no (unknown) (unknown) Procalcitonin (units ( unknown) date) (<0.5) ng/mL unknown) (unknown) (no (unknown) (unknown) Procalcitonin (units ( unknown) date) 1.08 H (<0.5) unknown) ng/mL (unknown) (no (unknown) (unknown) Procalcitonin (units ( unknown) date) Urgent unknown) (unknown) (no (unknown) (unknown) Procedure: XR (units ( unknown) date) chest 1V unknown) (unknown) (no (unknown) (unknown) Pulse Oximetry 97 (units (unknown) date) 02/07/22 08:10 unknown) (unknown) (no (unknown) (unknown) Pulse Oximetry 98 (units (unknown) date) unknown) (unknown) (no (unknown) (unknown) Pulse Rate 121 H (units (unknown) date) 02/07/22 08:10 unknown) (unknown) (no (unknown) (unknown) Pulse Rate 93 H (units (unknown) date) unknown) (unknown) (no (unknown) (unknown) RBC (4.0-5.2) (units ( unknown) date) X106/uL unknown) (unknown) (no (unknown) (unknown) RBC 3.79 L (units (unk nown) date) (4.0-5.2) X106/uL unknown) (unknown) (no (unknown) (unknown) RDW (11.6-14.8) % (units (unknown) date) unknown) (unknown) (no (unknown) (unknown) RDW 14.1 (units (unkno wn) date) (11.6-14.8) % unknown) (unknown) (no (unknown) (unknown) RESPIRATORY: (units (u nknown) date) Breath sounds unknown) equal bilaterally, no wheezes rales or rhonchi. (unknown) (no (unknown) (unknown) ROS Unobtainable: (units (unknown) date) All systems unknown) reviewed + are unremarkable except as noted in HPI (unknown) (no (unknown) (unknown) RSV (PCR) (units (unkn own) date) (Negative) unknown) (unknown) (no (unknown) (unknown) RSV (PCR) (units (unkn own) date) Negative unknown) (Negative) (unknown) (no (unknown) (unknown) Radiologist's (units ( unknown) date) Impression: unknown) (unknown) (no (unknown) (unknown) Recommend follow (units (unknown) date) up chest unknown) radiograph 4-6 weeks after treatment to document (unknown) (no (unknown) (unknown) Related Data (units (u nknown) date) unknown) (unknown) (no (unknown) (unknown) Respiratory Panel (units (unknown) date) (Film Array) Stat unknown) (unknown) (no (unknown) (unknown) Respiratory Rate (units (unknown) date) 32 H unknown) (unknown) (no (unknown) (unknown) Respiratory Rate (units (unknown) date) 33 H 02/07/22 unknown) 08:10 (unknown) (no (unknown) (unknown) Result diagrams: (units (unknown) date) unknown) (unknown) (no (unknown) (unknown) Review of Systems (units (unknown) date) unknown) (unknown) (no (unknown) (unknown) SARS-CoV-2 (PCR) (units (unknown) date) (Negative) unknown) (unknown) (no (unknown) (unknown) SARS-CoV-2 (PCR) (units (unknown) date) Negative unknown) (Negative) (unknown) (no (unknown) (unknown) EVERARDO; Protocol (units ( unknown) date) unknown) (unknown) (no (unknown) (unknown) SKIN: Severe (units (u nknown) date) scalp abrasions unknown) not growing hair mild drainage erythema facial (unknown) (no (unknown) (unknown) Schizophrenia (units ( unknown) date) unknown) (unknown) (no (unknown) (unknown) Sennosides (units (unk nown) date) (Sennosides 8.6 Mg unknown) Tablet) 8.6 mg PO BID PRN (unknown) (no (unknown) (unknown) Signed By: (units (unk nown) date) unknown) (unknown) (no (unknown) (unknown) Signed (units (unkno wn) date) unknown) (unknown) (no (unknown) (unknown) Smoking Status: (units (unknown) date) Never smoker unknown) (unknown) (no (unknown) (unknown) Social History (units (unknown) date) unknown) (unknown) (no (unknown) (unknown) Sodium (137-145) (units (unknown) date) mmol/L unknown) (unknown) (no (unknown) (unknown) Sodium 134 L (units (u nknown) date) (137-145) mmol/L unknown) (unknown) (no (unknown) (unknown) Sodium Chloride (units (unknown) date) (Normal Saline unknown) 0.9%) 1,000 mls @ 1,000 mls/hr IV BOLUS ONE (unknown) (no (unknown) (unknown) Sodium Chloride (units (unknown) date) (Normal Saline unknown) 0.9%) 1,146 mls @ 382 mls/hr 30 ml/kg infuse (unknown) (no (unknown) (unknown) Source: patient (units (unknown) date) unknown) (unknown) (no (unknown) (unknown) Stated Complaint: (units (unknown) date) she has wounds on unknown) head, not eating, mucas in nose (unknown) (no (unknown) (unknown) Stop: 02/07/22 (units (unknown) date) 08:48 unknown) (unknown) (no (unknown) (unknown) Stop: 02/07/22 (units (unknown) date) 08:50 unknown) (unknown) (no (unknown) (unknown) Stop: 02/07/22 (units (unknown) date) 09:44 unknown) (unknown) (no (unknown) (unknown) Stop: 02/07/22 (units (unknown) date) 09:48 unknown) (unknown) (no (unknown) (unknown) Stop: 02/07/22 (units (unknown) date) 11:06 unknown) (unknown) (no (unknown) (unknown) Stop: 02/07/22 (units (unknown) date) 11:07 unknown) (unknown) (no (unknown) (unknown) Stop: 02/07/22 (units (unknown) date) 11:16 unknown) (unknown) (no (unknown) (unknown) Stop: 02/07/22 (units (unknown) date) 12:56 unknown) (unknown) (no (unknown) (unknown) Stop: 02/07/22 (units (unknown) date) 13:07 unknown) (unknown) (no (unknown) (unknown) Stop: 02/07/22 (units (unknown) date) 15:39 unknown) (unknown) (no (unknown) (unknown) Stop: 02/08/22 (units (unknown) date) 09:31 unknown) (unknown) (no (unknown) (unknown) Stop: 02/08/22 (units (unknown) date) 12:01 unknown) (unknown) (no (unknown) (unknown) Stop: 02/09/22 (units (unknown) date) 18:57 unknown) (unknown) (no (unknown) (unknown) Stop: 02/11/22 (units (unknown) date) 08:59 unknown) (unknown) (no (unknown) (unknown) Substance Use (units ( unknown) date) Type: does not use unknown) (unknown) (no (unknown) (unknown) Surgical changes (units (unknown) date) and devices:? unknown) None.? (unknown) (no (unknown) (unknown) TECHNIQUE:? One (units (unknown) date) view of the chest unknown) was acquired.? (unknown) (no (unknown) (unknown) Temperature 100.6 (units (unknown) date) F H unknown) (unknown) (no (unknown) (unknown) Temperature 101.8 (units (unknown) date) F H 02/07/22 08:10 unknown) (unknown) (no (unknown) (unknown) Time Seen by (units (u nknown) date) Provider: 02/07/22 unknown) 08:08 (unknown) (no (unknown) (unknown) Total Bilirubin (units (unknown) date) (0.2-1.3) mg/dL unknown) (unknown) (no (unknown) (unknown) Total Bilirubin (units (unknown) date) 0.5 (0.2-1.3) unknown) mg/dL (unknown) (no (unknown) (unknown) Total Creatine (units (unknown) date) Kinase (30-135) unknown) U/L (unknown) (no (unknown) (unknown) Total Creatine (units (unknown) date) Kinase 825 H unknown) (30-135) U/L (unknown) (no (unknown) (unknown) Total Protein (units ( unknown) date) (6.3-8.2) g/dL unknown) (unknown) (no (unknown) (unknown) Total Protein 7.9 (units (unknown) date) (6.3-8.2) g/dL unknown) (unknown) (no (unknown) (unknown) Troponin I < (units (u nknown) date) 0.012 (0.01-0.034) unknown) ng/mL (unknown) (no (unknown) (unknown) Troponin I (units (unk nown) date) (0.01-0.034) ng/mL unknown) (unknown) (no (unknown) (unknown) Ur Culture (units (unk nown) date) Indicated? Cult unknown) not indicated (unknown) (no (unknown) (unknown) Ur Culture (units (unk nown) date) Indicated? unknown) (unknown) (no (unknown) (unknown) Ur Squamous Epith (units (unknown) date) Cells (0-5/HPF) unknown) (unknown) (no (unknown) (unknown) Ur Squamous Epith (units (unknown) date) Cells 1-5 /hpf unknown) (0-5/HPF) (unknown) (no (unknown) (unknown) Ur Transition (units ( unknown) date) Epith Cell unknown) (0-5/HPF) (unknown) (no (unknown) (unknown) Ur Transition (units ( unknown) date) Epith Cell 0-1/hpf unknown) (0-5/HPF) (unknown) (no (unknown) (unknown) Urine Bacteria (units (unknown) date) (None) unknown) (unknown) (no (unknown) (unknown) Urine Bacteria (units (unknown) date) None seen (None) unknown) (unknown) (no (unknown) (unknown) Urine Dip (units (unkn own) date) unknown) (unknown) (no (unknown) (unknown) Urine (units (unknown) date) Test (Negative) unknown) (unknown) (no (unknown) (unknown) Urine (units (unknown) date) Test Negative unknown) (Negative) (unknown) (no (unknown) (unknown) Urine RBC (units (unkn own) date) (0-5/HPF) unknown) (unknown) (no (unknown) (unknown) Urine RBC None (units (unknown) date) seen (0-5/HPF) unknown) (unknown) (no (unknown) (unknown) Urine Specific (units (unknown) date) [place] 1.015 unknown) (unknown) (no (unknown) (unknown) Urine WBC (units (unkn own) date) (0-5/HPF) unknown) (unknown) (no (unknown) (unknown) Urine WBC 1-5/hpf (units (unknown) date) (0-5/HPF) unknown) (unknown) (no (unknown) (unknown) Vancomycin HCl (units (unknown) date) (Vancomycin Peak) unknown) 1 request MISC NOW ONE (unknown) (no (unknown) (unknown) Vancomycin HCl (units (unknown) date) (Vancomycin Per unknown) Pharmacy) 1 request MISC NOW ONE (unknown) (no (unknown) (unknown) Vancomycin HCl (units (unknown) date) (Vancomycin unknown) Trough) 1 request MISC NOW ONE (unknown) (no (unknown) (unknown) Vancomycin HCl (units (unknown) date) (Vancomycin) 750 unknown) mg in 150 mls @ 150 mls/hr IV NOW ONE (unknown) (no (unknown) (unknown) Vancomycin HCl (units (unknown) date) (Vancomycin) 750 unknown) mg in 150 mls @ 150 mls/hr IV Q8H EVERARDO (unknown) (no (unknown) (unknown) Vital Signs - 8 (units (unknown) date) hr unknown) (unknown) (no (unknown) (unknown) Vital Signs (units (un known) date) unknown) (unknown) (no (unknown) (unknown) Vital signs: (units (u nknown) date) unknown) (unknown) (no (unknown) (unknown) WBC (4.5-11.0) (units (unknown) date) X103/uL unknown) (unknown) (no (unknown) (unknown) WBC 4.5 (units (unkno wn) date) (4.5-11.0) X103/uL unknown) (unknown) (no (unknown) (unknown) XRay Report (units (un known) date) unknown) (unknown) (no (unknown) (unknown) [Embedded Image (units (unknown) date) Not Available] unknown) (unknown) (no (unknown) (unknown) and below, (units (unk nown) date) Unobtainable due unknown) to medical condition and Unobtainable due to mental (unknown) (no (unknown) (unknown) and her face. (units ( unknown) date) They went to unknown) [facility] last week she said she got an IV, (unknown) (no (unknown) (unknown) appear (units (unkno wn) date) unknown) (unknown) (no (unknown) (unknown) behavior has (units (u nknown) date) changed some in unknown) regards to she is spitting more. They do not (unknown) (no (unknown) (unknown) blood work and (units (unknown) date) doxepin for the unknown) itching. It was recommended that patient be (unknown) (no (unknown) (unknown) but does have an (units (unknown) date) elevated unknown) procalcitonin. She received sepsis fluids and (unknown) (no (unknown) (unknown) change in (units (unkn own) date) behavior. He is unknown) found to be sepsis with septic shock requiring (unknown) (no (unknown) (unknown) condition (units (unkn own) date) unknown) (unknown) (no (unknown) (unknown) continue to have (units (unknown) date) hypotension unknown) therefore vasopressors were started. (unknown) (no (unknown) (unknown) difficult to (units (u nknown) date) tell. They state unknown) that her communication has not changed. She (unknown) (no (unknown) (unknown) etiology (units (unkno wn) date) unknown) (unknown) (no (unknown) (unknown) findings and/or (units (unknown) date) return to baseline unknown) examination. (unknown) (no (unknown) (unknown) guarding or (units (un known) date) rebound. unknown) (unknown) (no (unknown) (unknown) household (units (unkn own) date) members: family unknown) (unknown) (no (unknown) (unknown) intact (units (unkno wn) date) unknown) (unknown) (no (unknown) (unknown) is not eating she (units (unknown) date) continues to drink unknown) some. She started spitting more. Her (unknown) (no (unknown) (unknown) is required (units (un known) date) anesthesia was unknown) called to place central line. She was empirically (unknown) (no (unknown) (unknown) mirtazapine (units (un known) date) AdvReac unknown) Intermediate Rash severe Verified 01/30/22 06:52 (unknown) (no (unknown) (unknown) most likely. (units (u nknown) date) unknown) (unknown) (no (unknown) (unknown) nonspecific and (units (unknown) date) may represent an unknown) infectious or inflammatory process with viral (unknown) (no (unknown) (unknown) olanzapine 15 mg (units (unknown) date) tablet 15 mg PO unknown) BEDTIME #90 tabs 09/23/20 (unknown) (no (unknown) (unknown) over 3 hr (1146 (units (unknown) date) ml) IV NOW ONE unknown) (unknown) (no (unknown) (unknown) placed for (units (unk nown) date) psychiatric unknown) hospitalization but after a long wait parents (unknown) (no (unknown) (unknown) pneumothorax or (units (unknown) date) substantial unknown) pleural effusion. (unknown) (no (unknown) (unknown) poorly controled (units (unknown) date) schizophrenia she unknown) has frequent itching/picking she has (unknown) (no (unknown) (unknown) primary history (units (unknown) date) is taken from mom unknown) using language line. Patient has severe (unknown) (no (unknown) (unknown) reconsidered and (units (unknown) date) wanted to take her unknown) home. She developed a fever last night she (unknown) (no (unknown) (unknown) report worsening (units (unknown) date) hallucinations unknown) although patient really does not seem verbal (unknown) (no (unknown) (unknown) resolution of (units ( unknown) date) unknown) (unknown) (no (unknown) (unknown) scalp. Viral (units (u nknown) date) panel is negative unknown) no evidence of UTI or pneumonia. Central line (unknown) (no (unknown) (unknown) scratched her (units ( unknown) date) head so often the unknown) wounds on her head are actually getting worse (unknown) (no (unknown) (unknown) scratches (units (unkn own) date) unknown) (unknown) (no (unknown) (unknown) sniffing. She (units ( unknown) date) denies any pain. unknown) Mom reports cough. (unknown) (no (unknown) (unknown) started on (units (unk nown) date) antibiotics Zosyn unknown) and vancomycin. No fever in the ED no leukocytosis (unknown) (no (unknown) (unknown) the right cheek (units (unknown) date) unknown) (unknown) (no (unknown) (unknown) unremarkable.? (units (unknown) date) unknown) (unknown) (no (unknown) (unknown) vasopressors. (units ( unknown) date) Probable infection unknown) is cellulitis from her multiple sores on her Result panel 470 (unknown) (no (unknown) (unknown) (no value) (units (unk nown) date) unknown) (unknown) (no (unknown) (unknown) 08:22 08:22 08:22 (units (unknown) date) unknown) (unknown) (no (unknown) (unknown) 08:27 08:27 08:27 (units (unknown) date) unknown) (unknown) (no (unknown) (unknown) 08:27 08:42 09:20 (units (unknown) date) unknown) (unknown) (no (unknown) (unknown) 09:20 (units (unkno wn) date) unknown) (unknown) (no (unknown) (unknown) 11:30 02/07/22 (units (unknown) date) unknown) (unknown) (no (unknown) (unknown) 11:30 (units (unkno wn) date) unknown) (unknown) (no (unknown) (unknown) 02/07/22 08:27 (units (unknown) date) unknown) (unknown) (no (unknown) (unknown) 02/07/22 02/07/22 (units (unknown) date) 02/07/22 unknown) Range/Units (unknown) (no (unknown) (unknown) 02/07/22 12:00 (units (unknown) date) unknown) (unknown) (no (unknown) (unknown) 02/07/22 (units (unkno wn) date) Range/Units unknown) (unknown) (no (unknown) (unknown) 02/07/22 (units (unkno wn) date) unknown) (unknown) (no (unknown) (unknown) 02/08/22 05:00 (units (unknown) date) unknown) (unknown) (no (unknown) (unknown) 02/09/22 05:00 (units (unknown) date) unknown) (unknown) (no (unknown) (unknown) 02/10/22 05:00 (units (unknown) date) unknown) (unknown) (no (unknown) (unknown) ? (units (unkno wn) date) unknown) (unknown) (no (unknown) (unknown) ABDOMEN: Soft, (units (unknown) date) nontender. unknown) Normoactive bowel sounds all 4 quadrants. No (unknown) (no (unknown) (unknown) ALT (<35) IU/L (units (unknown) date) unknown) (unknown) (no (unknown) (unknown) ALT 33 (<35) IU/L (units (unknown) date) unknown) (unknown) (no (unknown) (unknown) AST (14-36) IU/L (units (unknown) date) unknown) (unknown) (no (unknown) (unknown) AST 87 H (14-36) (units (unknown) date) IU/L unknown) (unknown) (no (unknown) (unknown) Accession Number: (units (unknown) date) [id number] ?? unknown) (unknown) (no (unknown) (unknown) Acct:[id number] (units (unknown) date) unknown) (unknown) (no (unknown) (unknown) Acetaminophen (units ( unknown) date) (Acetaminophen 325 unknown) Mg Tablet) 650 mg PO Q6H PRN (unknown) (no (unknown) (unknown) Acetaminophen (units ( unknown) date) (Acetaminophen 325 unknown) Mg Tablet) 975 mg PO NOW ONE (unknown) (no (unknown) (unknown) Admin: 02/07/22 (units (unknown) date) 09:00 Dose: 1,000 unknown) mls/hr (unknown) (no (unknown) (unknown) Admin: 02/07/22 (units (unknown) date) 09:08 Dose: 200 unknown) mls/hr (unknown) (no (unknown) (unknown) Admin: 02/07/22 (units (unknown) date) 09:51 Dose: 150 unknown) mls/hr (unknown) (no (unknown) (unknown) Admin: 02/07/22 (units (unknown) date) 10:34 Dose: 382 unknown) mls/hr (unknown) (no (unknown) (unknown) Admin: 02/07/22 (units (unknown) date) 12:59 Dose: 2 unknown) mcg/min, 7.5 mls/hr (unknown) (no (unknown) (unknown) Admin: 02/07/22 (units (unknown) date) 13:11 Dose: 200 unknown) mls/hr (unknown) (no (unknown) (unknown) Admin: 02/07/22 (units (unknown) date) 16:26 Dose: 250 unknown) mls/hr (unknown) (no (unknown) (unknown) Admin: 02/07/22 (units (unknown) date) 18:30 Dose: 150 unknown) mls/hr (unknown) (no (unknown) (unknown) Admit Date/Time: (units (unknown) date) 02/07/22 11:54 unknown) (unknown) (no (unknown) (unknown) Admit Provider: (units (unknown) date) Yaakov Costa unknown) (unknown) (no (unknown) (unknown) Age/Sex: 31 / F (units (unknown) date) unknown) (unknown) (no (unknown) (unknown) Albumin (3.5-5.0) (units (unknown) date) g/dL unknown) (unknown) (no (unknown) (unknown) Albumin 3.6 (units (un known) date) (3.5-5.0) g/dL unknown) (unknown) (no (unknown) (unknown) Albumin/Globulin (units (unknown) date) Ratio (1.0-2.8) unknown) (unknown) (no (unknown) (unknown) Albumin/Globulin (units (unknown) date) Ratio 0.8 L unknown) (1.0-2.8) (unknown) (no (unknown) (unknown) Alkaline (units (unkno wn) date) Phosphatase unknown) (38-126) U/L (unknown) (no (unknown) (unknown) Alkaline (units (unkno wn) date) Phosphatase 46 unknown) (38-126) U/L (unknown) (no (unknown) (unknown) Allergies (units (unkn own) date) unknown) (unknown) (no (unknown) (unknown) Allergy/AdvReac (units (unknown) date) Type Severity unknown) Reaction Status Date / Time (unknown) (no (unknown) (unknown) Approved by: (units (u nknown) date) Mikel Nur M.D. on unknown) 02/07/2022 at 9:09 ? (unknown) (no (unknown) (unknown) Aripiprazole (units (u nknown) date) (Aripiprazole 10 unknown) Mg Tablet) 10 mg PO DAILY EVERARDO (unknown) (no (unknown) (unknown) Azithromycin 500 (units (unknown) date) mg/ Dextrose 250 unknown) mls @ 250 mls/hr IV Q24H EVERARDO (unknown) (no (unknown) (unknown) BMP [Basic (units (unk nown) date) Metabolic Panel] unknown) DAILY (unknown) (no (unknown) (unknown) BUN (7-17) mg/dL (units (unknown) date) unknown) (unknown) (no (unknown) (unknown) BUN 14 (7-17) (units ( unknown) date) mg/dL unknown) (unknown) (no (unknown) (unknown) BUN/Creatinine (units (unknown) date) Ratio (6-22) unknown) (unknown) (no (unknown) (unknown) BUN/Creatinine (units (unknown) date) Ratio 21.9 (6-22) unknown) (unknown) (no (unknown) (unknown) Baso # (Auto) (units ( unknown) date) (0-100) /uL unknown) (unknown) (no (unknown) (unknown) Baso # (Auto) 0 (units (unknown) date) (0-100) /uL unknown) (unknown) (no (unknown) (unknown) Baso % (Auto) (units ( unknown) date) (0-2) % unknown) (unknown) (no (unknown) (unknown) Baso % (Auto) 0.5 (units (unknown) date) (0-2) % unknown) (unknown) (no (unknown) (unknown) Bedside Urine (units ( unknown) date) Bilirubin - unknown) Negative (unknown) (no (unknown) (unknown) Bedside Urine (units ( unknown) date) Glucose Negative unknown) (unknown) (no (unknown) (unknown) Bedside Urine (units ( unknown) date) Ketone - Negative unknown) (unknown) (no (unknown) (unknown) Bedside Urine (units ( unknown) date) Leukocytes - unknown) Negative (unknown) (no (unknown) (unknown) Bedside Urine (units ( unknown) date) Nitrite - Negative unknown) (unknown) (no (unknown) (unknown) Bedside Urine (units ( unknown) date) Occult Blood - unknown) Negative (unknown) (no (unknown) (unknown) Bedside Urine (units ( unknown) date) Protein + 30 unknown) (unknown) (no (unknown) (unknown) Bedside Urine (units ( unknown) date) Urobilinogen - unknown) Negative (unknown) (no (unknown) (unknown) Bedside Urine pH (units (unknown) date) 6 unknown) (unknown) (no (unknown) (unknown) Blood Pressure (units (unknown) date) 100/57 L 02/07/22 unknown) 08:10 (unknown) (no (unknown) (unknown) Blood Pressure (units (unknown) date) 100/62 unknown) (unknown) (no (unknown) (unknown) Bones and chest (units (unknown) date) wall:? No unknown) suspicious bony lesions.? Overlying soft tissues (unknown) (no (unknown) (unknown) CARDIOVASCULAR: (units (unknown) date) Regular rate and unknown) rhythm without murmurs, rubs or gallops. (unknown) (no (unknown) (unknown) CBC Auto Diff (units ( unknown) date) [Complete Blood unknown) Count AUTO DIFF] DAILY (unknown) (no (unknown) (unknown) CK-MB (CK-2) (units (u nknown) date) (<2.37) ng/mL unknown) (unknown) (no (unknown) (unknown) CK-MB (CK-2) 2.02 (units (unknown) date) (<2.37) ng/mL unknown) (unknown) (no (unknown) (unknown) CK-MB (CK-2) Rel (units (unknown) date) Index (1.5-5.0) % unknown) (unknown) (no (unknown) (unknown) CK-MB (CK-2) Rel (units (unknown) date) Index 0.2 L unknown) (1.5-5.0) % (unknown) (no (unknown) (unknown) COMPARISON:? (units (u nknown) date) [facility] unknown) Hospital, CR, XR CHEST 1 VIEW, 12/01/2018, 14:33. (unknown) (no (unknown) (unknown) Calcium (units (unkno wn) date) (8.4-10.2) mg/dL unknown) (unknown) (no (unknown) (unknown) Calcium 8.3 L (units ( unknown) date) (8.4-10.2) mg/dL unknown) (unknown) (no (unknown) (unknown) Carbon Dioxide (units (unknown) date) (22-32) mmol/L unknown) (unknown) (no (unknown) (unknown) Carbon Dioxide 23 (units (unknown) date) (22-32) mmol/L unknown) (unknown) (no (unknown) (unknown) Ceftriaxone (units (un known) date) Sodium 1,000 mg/ unknown) (Sodium Chloride) 100 mls @ 200 mls/hr IV Q24H EVERARDO (unknown) (no (unknown) (unknown) Ceftriaxone (units (un known) date) Sodium 2,000 mg/ unknown) (Sodium Chloride) 100 mls @ 200 mls/hr IV NOW ONE (unknown) (no (unknown) (unknown) Chest x-ray: (units (u nknown) date) unknown) (unknown) (no (unknown) (unknown) Chief Complaint: (units (unknown) date) Altered Mental unknown) Status (unknown) (no (unknown) (unknown) Chloride (98-107) (units (unknown) date) mmol/L unknown) (unknown) (no (unknown) (unknown) Chloride 99 (units (un known) date) (98-107) mmol/L unknown) (unknown) (no (unknown) (unknown) Clinical (units (unkno wn) date) Impression: unknown) (unknown) (no (unknown) (unknown) Course (units (unkno wn) date) unknown) (unknown) (no (unknown) (unknown) Creatinine (units (unk nown) date) (0.52-1.04) mg/dL unknown) (unknown) (no (unknown) (unknown) Creatinine 0.64 (units (unknown) date) (0.52-1.04) mg/dL unknown) (unknown) (no (unknown) (unknown) D-Dimer (<500) (units (unknown) date) ng/ml unknown) (unknown) (no (unknown) (unknown) D-Dimer 2351 H (units (unknown) date) (<500) ng/ml unknown) (unknown) (no (unknown) (unknown) : 1990 (units (unknown) date) Acct:[id number] unknown) (unknown) (no (unknown) (unknown) : 1990 (units (unknown) date) unknown) (unknown) (no (unknown) (unknown) Date of Service: (units (unknown) date) 02/07/22 unknown) (unknown) (no (unknown) (unknown) Departure (units (unkn own) date) unknown) (unknown) (no (unknown) (unknown) Dictated by: (units (u nknown) date) Mikel Nur M.D. on unknown) 02/07/2022 at 9:08 ? ? (unknown) (no (unknown) (unknown) Discharge Plan (units (unknown) date) unknown) (unknown) (no (unknown) (unknown) Discontinued (units (u nknown) date) Medications unknown) (unknown) (no (unknown) (unknown) Documented By: (units (unknown) date) HANNY unknown) (unknown) (no (unknown) (unknown) Documented By: DL (units (unknown) date) unknown) (unknown) (no (unknown) (unknown) Documented By: KM (units (unknown) date) unknown) (unknown) (no (unknown) (unknown) Dr. Costa updated (units (unknown) date) on patient's unknown) symptoms test results and kindly accepts patient (unknown) (no (unknown) (unknown) ED Orders (units (unkn own) date) unknown) (unknown) (no (unknown) (unknown) ER Physician: (units ( unknown) date) Amelia Unger unknown) D.ODemarco (unknown) (no (unknown) (unknown) EXTREMITIES: (units (u nknown) date) Normal range of unknown) motion, no clubbing or edema. Neurovascularly (unknown) (no (unknown) (unknown) Emergency Report (units (unknown) date) unknown) (unknown) (no (unknown) (unknown) Enoxaparin Sodium (units (unknown) date) (Enoxaparin 40 unknown) Mg/0.4 Ml Syringe) 40 mg SUBCUT DAILY EVERARDO (unknown) (no (unknown) (unknown) Eos # (Auto) (units (u nknown) date) (0-450) /uL unknown) (unknown) (no (unknown) (unknown) Eos # (Auto) 0 (units (unknown) date) (0-450) /uL unknown) (unknown) (no (unknown) (unknown) Eos % (Auto) (units (u nknown) date) (2-4) % unknown) (unknown) (no (unknown) (unknown) Eos % (Auto) 0.0 (units (unknown) date) L (2-4) % unknown) (unknown) (no (unknown) (unknown) Esterase (units (unkno wn) date) unknown) (unknown) (no (unknown) (unknown) Estimated GFR > (units (unknown) date) 60 (>60) mL/min unknown) (unknown) (no (unknown) (unknown) Estimated GFR (units ( unknown) date) (>60) mL/min unknown) (unknown) (no (unknown) (unknown) Exam (units (unkno wn) date) unknown) (unknown) (no (unknown) (unknown) FINDINGS:? (units (unk nown) date) unknown) (unknown) (no (unknown) (unknown) Findings are (units (u nknown) date) unknown) (unknown) (no (unknown) (unknown) Fluoxetine HCl (units (unknown) date) (Fluoxetine 10 Mg unknown) Capsule) 20 mg PO DAILY EVERARDO (unknown) (no (unknown) (unknown) GENERAL: Thin (units ( unknown) date) 31-year-old female unknown) (unknown) (no (unknown) (unknown) : Incontinent (units (unknown) date) of urine unknown) (unknown) (no (unknown) (unknown) General (units (unkno wn) date) unknown) (unknown) (no (unknown) (unknown) Globulin (units (unkno wn) date) (1.7-4.1) g/dL unknown) (unknown) (no (unknown) (unknown) Globulin 4.3 H (units (unknown) date) (1.7-4.1) g/dL unknown) (unknown) (no (unknown) (unknown) Glucose (70-100) (units (unknown) date) mg/dL unknown) (unknown) (no (unknown) (unknown) Glucose 113 H (units ( unknown) date) (70-100) mg/dL unknown) (unknown) (no (unknown) (unknown) HEENT: Head (units (un known) date) atraumatic,EOMI, unknown) pupils reactive, multiple face scratches mostly on (unknown) (no (unknown) (unknown) HPI - Fever (units (un known) date) unknown) (unknown) (no (unknown) (unknown) HPI Narrative: (units (unknown) date) unknown) (unknown) (no (unknown) (unknown) Haloperidol (units (un known) date) (Haloperidol 5 unknown) Mg/Ml Vial) 5 mg IV Q4HR PRN (unknown) (no (unknown) (unknown) Hct (36-46) % (units ( unknown) date) unknown) (unknown) (no (unknown) (unknown) Hct 32.5 L (units (unk nown) date) (36-46) % unknown) (unknown) (no (unknown) (unknown) Hgb (12.0-16.0) (units (unknown) date) g/dL unknown) (unknown) (no (unknown) (unknown) Hgb 10.9 L (units (unk nown) date) (12.0-16.0) g/dL unknown) (unknown) (no (unknown) (unknown) 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) (unknown) (no (unknown) (unknown) History of (units (unk nown) date) Present Illness unknown) (unknown) (no (unknown) (unknown) History of (units (unk nown) date) pulmonary embolism unknown) (unknown) (no (unknown) (unknown) IMPRESSION:? (units (u nknown) date) Diffuse unknown) interstitial prominence without focal consolidation.? (unknown) (no (unknown) (unknown) INDICATIONS:? (units ( unknown) date) fever unknown) (unknown) (no (unknown) (unknown) IV NOW ONE (units (unk nown) date) unknown) (unknown) (no (unknown) (unknown) IV Q8H EVERARDO (units (unk nown) date) unknown) (unknown) (no (unknown) (unknown) Imaging Data (units (u nknown) date) unknown) (unknown) (no (unknown) (unknown) Influenza A (units (un known) date) (RT-PCR) unknown) (NEGATIVE) (unknown) (no (unknown) (unknown) Influenza A (units (un known) date) (RT-PCR) Flu a unknown) negative (NEGATIVE) (unknown) (no (unknown) (unknown) Influenza B (units (un known) date) (RT-PCR) unknown) (NEGATIVE) (unknown) (no (unknown) (unknown) Influenza B (units (un known) date) (RT-PCR) Flu b unknown) negative (NEGATIVE) (unknown) (no (unknown) (unknown) Influenza Virus (units (unknown) date) Vaccine (Influenza unknown) Vaccine Qiv 0.5 Ml Syringe) 0.5 ml IM .ONCE (unknown) (no (unknown) (unknown) Initial Vital (units ( unknown) date) Signs unknown) (unknown) (no (unknown) (unknown) Initial Vital (units ( unknown) date) Signs: unknown) (unknown) (no (unknown) (unknown) [facility] (units (unknown) date) [address] unknown) [place] [address] (unknown) (no (unknown) (unknown) Ketorolac (units (unkn own) date) Tromethamine unknown) (Ketorolac 30 Mg/Ml Vial) 15 mg IV NOW ONE (unknown) (no (unknown) (unknown) Lab Data (units (unkno wn) date) unknown) (unknown) (no (unknown) (unknown) Lab Results (units (un known) date) unknown) (unknown) (no (unknown) (unknown) Labs: (units (unkno wn) date) unknown) (unknown) (no (unknown) (unknown) Lactate (0.7-2.1) (units (unknown) date) mmol/L unknown) (unknown) (no (unknown) (unknown) Lactate 1.6 (units (un known) date) (0.7-2.1) mmol/L unknown) (unknown) (no (unknown) (unknown) Last Admin: (units (un known) date) 02/07/22 09:07 unknown) Dose: 15 mg (unknown) (no (unknown) (unknown) Last Admin: (units (un known) date) 02/07/22 11:11 unknown) Dose: 20 mg (unknown) (no (unknown) (unknown) Last Admin: (units (un known) date) 02/07/22 11:11 unknown) Dose: 975 mg (unknown) (no (unknown) (unknown) Last Admin: (units (un known) date) 02/07/22 15:53 unknown) Dose: Not Given (unknown) (no (unknown) (unknown) Last Admin: (units (un known) date) 02/07/22 17:26 unknown) Dose: Not Given (unknown) (no (unknown) (unknown) Last Admin: (units (un known) date) 02/07/22 18:15 unknown) Dose: Not Given (unknown) (no (unknown) (unknown) Last Infusion: (units (unknown) date) 02/07/22 09:57 unknown) Dose: 0 mls/hr (unknown) (no (unknown) (unknown) Last Infusion: (units (unknown) date) 02/07/22 11:17 unknown) Dose: 0 mls/hr (unknown) (no (unknown) (unknown) Last Infusion: (units (unknown) date) 02/07/22 13:16 unknown) Dose: 0 mls/hr (unknown) (no (unknown) (unknown) Last Infusion: (units (unknown) date) 02/07/22 15:53 unknown) Dose: 0 mls/hr (unknown) (no (unknown) (unknown) Last Infusion: (units (unknown) date) 02/07/22 17:27 unknown) Dose: 0 mls/hr (unknown) (no (unknown) (unknown) Last Infusion: (units (unknown) date) 02/07/22 19:45 unknown) Dose: 0 mls/hr (unknown) (no (unknown) (unknown) Last Titration: (units (unknown) date) 02/07/22 13:24 unknown) Dose: 3 mcg/min, 11.25 mls/hr (unknown) (no (unknown) (unknown) Loc: ED (units (unkno wn) date) unknown) (unknown) (no (unknown) (unknown) Lungs and pleura:? (units (unknown) date) Diffuse unknown) interstitial prominence.? No focal consolidation.? No (unknown) (no (unknown) (unknown) Lymph # (Auto) (units (unknown) date) (9899-0743) /uL unknown) (unknown) (no (unknown) (unknown) Lymph # (Auto) (units (unknown) date) 900 L (8806-7987) unknown) /uL (unknown) (no (unknown) (unknown) Lymph % (Auto) (units (unknown) date) (25-40) % unknown) (unknown) (no (unknown) (unknown) Lymph % (Auto) (units (unknown) date) 20.7 L (25-40) % unknown) (unknown) (no (unknown) (unknown) [id number] (units (unk nown) date) unknown) (unknown) (no (unknown) (unknown) MCH (26-34) PG (units (unknown) date) unknown) (unknown) (no (unknown) (unknown) MCH 28.7 (26-34) (units (unknown) date) PG unknown) (unknown) (no (unknown) (unknown) MCHC (30-36) % (units (unknown) date) unknown) (unknown) (no (unknown) (unknown) MCHC 33.5 (30-36) (units (unknown) date) % unknown) (unknown) (no (unknown) (unknown) MCV (80-100) fL (units (unknown) date) unknown) (unknown) (no (unknown) (unknown) MCV 85.7 (80-100) (units (unknown) date) fL unknown) (unknown) (no (unknown) (unknown) MDM - Fever (units (un known) date) unknown) (unknown) (no (unknown) (unknown) MDM Narrative (units ( unknown) date) unknown) (unknown) (no (unknown) (unknown) MR#: [id number] (units (unknown) date) unknown) (unknown) (no (unknown) (unknown) Magnesium (units (unkn own) date) (1.6-2.3) mg/dL unknown) (unknown) (no (unknown) (unknown) Magnesium 2.1 (units ( unknown) date) (1.6-2.3) mg/dL unknown) (unknown) (no (unknown) (unknown) Mediastinum:? (units ( unknown) date) Mediastinal unknown) contours appear normal.? Heart size is normal.? (unknown) (no (unknown) (unknown) Medical History (units (unknown) date) (Updated 02/07/22 unknown) @ 20:57 by Amelia Unger DO) (unknown) (no (unknown) (unknown) Medical decision (units (unknown) date) making narrative: unknown) (unknown) (no (unknown) (unknown) Medication (units (unk nown) date) Instructions unknown) Recorded (unknown) (no (unknown) (unknown) Melatonin (units (unkn own) date) (Melatonin 3 Mg unknown) Tablet) 6 mg PO BEDTIME PRN (unknown) (no (unknown) (unknown) Mode of arrival: (units (unknown) date) Wheelchair unknown) (unknown) (no (unknown) (unknown) Butts # (Auto) (units ( unknown) date) (0-900) /uL unknown) (unknown) (no (unknown) (unknown) Butts # (Auto) 500 (units (unknown) date) (0-900) /uL unknown) (unknown) (no (unknown) (unknown) Butts % (Auto) (units ( unknown) date) (3-14) % unknown) (unknown) (no (unknown) (unknown) Butts % (Auto) (units ( unknown) date) 10.1 (3-14) % unknown) (unknown) (no (unknown) (unknown) NEUROLOGICAL: (units ( unknown) date) Moving all unknown) extremities (unknown) (no (unknown) (unknown) NOREPINEPHRINE (units (unknown) date) BITARTRATE/D5W unknown) (Levophed) 4 mg in 250 mls @ 30 mls/hr IV TITRATE (unknown) (no (unknown) (unknown) Naloxone HCl (units (u nknown) date) (Naloxone 0.4 unknown) Mg/Ml Vial) 0.2 mg IV Q2MIN PRN (unknown) (no (unknown) (unknown) Neut # (Auto) (units ( unknown) date) (9094-7815) /uL unknown) (unknown) (no (unknown) (unknown) Neut # (Auto) (units ( unknown) date) 3100 (4411-0974) unknown) /uL (unknown) (no (unknown) (unknown) Neut % (Auto) (units ( unknown) date) (50-75) % unknown) (unknown) (no (unknown) (unknown) Neut % (Auto) (units ( unknown) date) 68.7 (50-75) % unknown) (unknown) (no (unknown) (unknown) ONE (units (unkno wn) date) unknown) (unknown) (no (unknown) (unknown) Olanzapine (units (unk nown) date) (Olanzapine 2.5 Mg unknown) Tablet) 5 mg PO BEDTIME EVERARDO (unknown) (no (unknown) (unknown) Olanzapine (units (unk nown) date) (Olanzapine Odt 10 unknown) Mg Tab) 20 mg PO BEDTIME EVERARDO (unknown) (no (unknown) (unknown) Olanzapine (units (unk nown) date) (Olanzapine Odt 10 unknown) Mg Tab) 20 mg PO NOW ONE (unknown) (no (unknown) (unknown) Ordered: (units (unkno wn) date) unknown) (unknown) (no (unknown) (unknown) Ordering (units (unkno wn) date) Provider: unknown) Amelia Unger D.O. (unknown) (no (unknown) (unknown) Orders (units (unkno wn) date) unknown) (unknown) (no (unknown) (unknown) Oxygen Delivery (units (unknown) date) Method 02/07/22 unknown) 08:10 (unknown) (no (unknown) (unknown) PRN Reason: (units (un known) date) Agitation unknown) (unknown) (no (unknown) (unknown) PRN Reason: (units (un known) date) Constipation unknown) (unknown) (no (unknown) (unknown) PRN Reason: (units (un known) date) Fever/Mild Pain unknown) (1-3) (unknown) (no (unknown) (unknown) PRN Reason: (units (un known) date) Insomnia unknown) (unknown) (no (unknown) (unknown) PRN Reason: (units (un known) date) Opiate Reversal unknown) (unknown) (no (unknown) (unknown) PRN (units (unkno wn) date) unknown) (unknown) (no (unknown) (unknown) PROCEDURE:? XR (units (unknown) date) CHEST 1V unknown) (unknown) (no (unknown) (unknown) Patient (units (unkno wn) date) Disposition: unknown) Admitted As Inpatient (unknown) (no (unknown) (unknown) Patient History (units (unknown) date) unknown) (unknown) (no (unknown) (unknown) Patient is a (units (u nknown) date) 31-year-old female unknown) history of schizophrenia language barrier (unknown) (no (unknown) (unknown) Patient presents (units (unknown) date) today with fever, unknown) decreased appetite decreased oral intake and (unknown) (no (unknown) (unknown) Patient remote (units (unknown) date) history of DVT mom unknown) states that she previously had surgery in her (unknown) (no (unknown) (unknown) Patient: (units (unkno wn) date) Bushra Millslene unknown) B MR#: (unknown) (no (unknown) (unknown) Patient: (units (unkno wn) date) Vanessa Mills unknown) B (unknown) (no (unknown) (unknown) Piperacillin (units (u nknown) date) Sod/Tazobactam unknown) (Sod 3.375 gm/ Sodium Chloride) 100 mls @ 25 mls/hr (unknown) (no (unknown) (unknown) Piperacillin (units (u nknown) date) Sod/Tazobactam unknown) (Sod 4.5 gm/ Sodium Chloride) 100 mls @ 200 mls/hr (unknown) (no (unknown) (unknown) Piperacillin (units (u nknown) date) Sod/Tazobactam unknown) (Sod 4.5 gm/ Sodium Chloride) 100 mls @ 25 mls/hr (unknown) (no (unknown) (unknown) Plt Count (units (unkn own) date) (150-400) X103/uL unknown) (unknown) (no (unknown) (unknown) Plt Count 155 (units ( unknown) date) (150-400) X103/uL unknown) (unknown) (no (unknown) (unknown) Point of Care (units ( unknown) date) Testing unknown) (unknown) (no (unknown) (unknown) Polyethylene (units (u nknown) date) Glycol unknown) (Polyethylene Glycol 3350 17 Gm Powd.Pack) 17 gm PO DAILY (unknown) (no (unknown) (unknown) Potassium (units (unkn own) date) (3.4-5.1) mmol/L unknown) (unknown) (no (unknown) (unknown) Potassium 3.6 (units ( unknown) date) (3.4-5.1) mmol/L unknown) (unknown) (no (unknown) (unknown) Test (units (unknown) date) Results Negative unknown) (unknown) (no (unknown) (unknown) Previous Rx's (units ( unknown) date) unknown) (unknown) (no (unknown) (unknown) Procalcitonin (units ( unknown) date) (<0.5) ng/mL unknown) (unknown) (no (unknown) (unknown) Procalcitonin (units ( unknown) date) 1.08 H (<0.5) unknown) ng/mL (unknown) (no (unknown) (unknown) Procalcitonin (units ( unknown) date) Urgent unknown) (unknown) (no (unknown) (unknown) Procedure: XR (units ( unknown) date) chest 1V unknown) (unknown) (no (unknown) (unknown) Pulse Oximetry 97 (units (unknown) date) 02/07/22 08:10 unknown) (unknown) (no (unknown) (unknown) Pulse Oximetry 98 (units (unknown) date) unknown) (unknown) (no (unknown) (unknown) Pulse Rate 121 H (units (unknown) date) 02/07/22 08:10 unknown) (unknown) (no (unknown) (unknown) Pulse Rate 93 H (units (unknown) date) unknown) (unknown) (no (unknown) (unknown) RBC (4.0-5.2) (units ( unknown) date) X106/uL unknown) (unknown) (no (unknown) (unknown) RBC 3.79 L (units (unk nown) date) (4.0-5.2) X106/uL unknown) (unknown) (no (unknown) (unknown) RDW (11.6-14.8) % (units (unknown) date) unknown) (unknown) (no (unknown) (unknown) RDW 14.1 (units (unkno wn) date) (11.6-14.8) % unknown) (unknown) (no (unknown) (unknown) RESPIRATORY: (units (u nknown) date) Breath sounds unknown) equal bilaterally, no wheezes rales or rhonchi. (unknown) (no (unknown) (unknown) ROS Unobtainable: (units (unknown) date) All systems unknown) reviewed + are unremarkable except as noted in HPI (unknown) (no (unknown) (unknown) RSV (PCR) (units (unkn own) date) (Negative) unknown) (unknown) (no (unknown) (unknown) RSV (PCR) (units (unkn own) date) Negative unknown) (Negative) (unknown) (no (unknown) (unknown) Radiologist's (units ( unknown) date) Impression: unknown) (unknown) (no (unknown) (unknown) Recommend follow (units (unknown) date) up chest unknown) radiograph 4-6 weeks after treatment to document (unknown) (no (unknown) (unknown) Related Data (units (u nknown) date) unknown) (unknown) (no (unknown) (unknown) Respiratory Panel (units (unknown) date) (Film Array) Stat unknown) (unknown) (no (unknown) (unknown) Respiratory Rate (units (unknown) date) 32 H unknown) (unknown) (no (unknown) (unknown) Respiratory Rate (units (unknown) date) 33 H 02/07/22 unknown) 08:10 (unknown) (no (unknown) (unknown) Respiratory panel (units (unknown) date) is also Negative. unknown) (unknown) (no (unknown) (unknown) Result diagrams: (units (unknown) date) unknown) (unknown) (no (unknown) (unknown) Review of Systems (units (unknown) date) unknown) (unknown) (no (unknown) (unknown) SARS-CoV-2 (PCR) (units (unknown) date) (Negative) unknown) (unknown) (no (unknown) (unknown) SARS-CoV-2 (PCR) (units (unknown) date) Negative unknown) (Negative) (unknown) (no (unknown) (unknown) EVERARDO; Protocol (units ( unknown) date) unknown) (unknown) (no (unknown) (unknown) SKIN: Severe (units (u nknown) date) scalp abrasions unknown) not growing hair mild drainage erythema facial (unknown) (no (unknown) (unknown) Schizophrenia (units ( unknown) date) unknown) (unknown) (no (unknown) (unknown) Sennosides (units (unk nown) date) (Sennosides 8.6 Mg unknown) Tablet) 8.6 mg PO BID PRN (unknown) (no (unknown) (unknown) Septic shock (units (u nknown) date) unknown) (unknown) (no (unknown) (unknown) Signed By: (units (unk nown) date) unknown) (unknown) (no (unknown) (unknown) Signed (units (unkno wn) date) unknown) (unknown) (no (unknown) (unknown) Smoking Status: (units (unknown) date) Never smoker unknown) (unknown) (no (unknown) (unknown) Social History (units (unknown) date) unknown) (unknown) (no (unknown) (unknown) Sodium (137-145) (units (unknown) date) mmol/L unknown) (unknown) (no (unknown) (unknown) Sodium 134 L (units (u nknown) date) (137-145) mmol/L unknown) (unknown) (no (unknown) (unknown) Sodium Chloride (units (unknown) date) (Normal Saline unknown) 0.9%) 1,000 mls @ 1,000 mls/hr IV BOLUS ONE (unknown) (no (unknown) (unknown) Sodium Chloride (units (unknown) date) (Normal Saline unknown) 0.9%) 1,146 mls @ 382 mls/hr 30 ml/kg infuse (unknown) (no (unknown) (unknown) Source: patient (units (unknown) date) unknown) (unknown) (no (unknown) (unknown) Stated Complaint: (units (unknown) date) she has wounds on unknown) head, not eating, mucas in nose (unknown) (no (unknown) (unknown) Stop: 02/07/22 (units (unknown) date) 08:48 unknown) (unknown) (no (unknown) (unknown) Stop: 02/07/22 (units (unknown) date) 08:50 unknown) (unknown) (no (unknown) (unknown) Stop: 02/07/22 (units (unknown) date) 09:44 unknown) (unknown) (no (unknown) (unknown) Stop: 02/07/22 (units (unknown) date) 09:48 unknown) (unknown) (no (unknown) (unknown) Stop: 02/07/22 (units (unknown) date) 11:06 unknown) (unknown) (no (unknown) (unknown) Stop: 02/07/22 (units (unknown) date) 11:07 unknown) (unknown) (no (unknown) (unknown) Stop: 02/07/22 (units (unknown) date) 11:16 unknown) (unknown) (no (unknown) (unknown) Stop: 02/07/22 (units (unknown) date) 12:56 unknown) (unknown) (no (unknown) (unknown) Stop: 02/07/22 (units (unknown) date) 13:07 unknown) (unknown) (no (unknown) (unknown) Stop: 02/07/22 (units (unknown) date) 15:39 unknown) (unknown) (no (unknown) (unknown) Stop: 02/08/22 (units (unknown) date) 09:31 unknown) (unknown) (no (unknown) (unknown) Stop: 02/08/22 (units (unknown) date) 12:01 unknown) (unknown) (no (unknown) (unknown) Stop: 02/09/22 (units (unknown) date) 18:57 unknown) (unknown) (no (unknown) (unknown) Stop: 02/11/22 (units (unknown) date) 08:59 unknown) (unknown) (no (unknown) (unknown) Substance Use (units ( unknown) date) Type: does not use unknown) (unknown) (no (unknown) (unknown) Surgical changes (units (unknown) date) and devices:? unknown) None.? (unknown) (no (unknown) (unknown) TECHNIQUE:? One (units (unknown) date) view of the chest unknown) was acquired.? (unknown) (no (unknown) (unknown) Temperature 100.6 (units (unknown) date) F H unknown) (unknown) (no (unknown) (unknown) Temperature 101.8 (units (unknown) date) F H 02/07/22 08:10 unknown) (unknown) (no (unknown) (unknown) Time Seen by (units (u nknown) date) Provider: 02/07/22 unknown) 08:08 (unknown) (no (unknown) (unknown) Total Bilirubin (units (unknown) date) (0.2-1.3) mg/dL unknown) (unknown) (no (unknown) (unknown) Total Bilirubin (units (unknown) date) 0.5 (0.2-1.3) unknown) mg/dL (unknown) (no (unknown) (unknown) Total Creatine (units (unknown) date) Kinase (30-135) unknown) U/L (unknown) (no (unknown) (unknown) Total Creatine (units (unknown) date) Kinase 825 H unknown) (30-135) U/L (unknown) (no (unknown) (unknown) Total Protein (units ( unknown) date) (6.3-8.2) g/dL unknown) (unknown) (no (unknown) (unknown) Total Protein 7.9 (units (unknown) date) (6.3-8.2) g/dL unknown) (unknown) (no (unknown) (unknown) Translating (units (un known) date) services were used unknown) for consent for central line and updating on (unknown) (no (unknown) (unknown) Troponin I < (units (u nknown) date) 0.012 (0.01-0.034) unknown) ng/mL (unknown) (no (unknown) (unknown) Troponin I (units (unk nown) date) (0.01-0.034) ng/mL unknown) (unknown) (no (unknown) (unknown) Ur Culture (units (unk nown) date) Indicated? Cult unknown) not indicated (unknown) (no (unknown) (unknown) Ur Culture (units (unk nown) date) Indicated? unknown) (unknown) (no (unknown) (unknown) Ur Squamous Epith (units (unknown) date) Cells (0-5/HPF) unknown) (unknown) (no (unknown) (unknown) Ur Squamous Epith (units (unknown) date) Cells 1-5 /hpf unknown) (0-5/HPF) (unknown) (no (unknown) (unknown) Ur Transition (units ( unknown) date) Epith Cell unknown) (0-5/HPF) (unknown) (no (unknown) (unknown) Ur Transition (units ( unknown) date) Epith Cell 0-1/hpf unknown) (0-5/HPF) (unknown) (no (unknown) (unknown) Urine Bacteria (units (unknown) date) (None) unknown) (unknown) (no (unknown) (unknown) Urine Bacteria (units (unknown) date) None seen (None) unknown) (unknown) (no (unknown) (unknown) Urine Dip (units (unkn own) date) unknown) (unknown) (no (unknown) (unknown) Urine (units (unknown) date) Test (Negative) unknown) (unknown) (no (unknown) (unknown) Urine (units (unknown) date) Test Negative unknown) (Negative) (unknown) (no (unknown) (unknown) Urine RBC (units (unkn own) date) (0-5/HPF) unknown) (unknown) (no (unknown) (unknown) Urine RBC None (units (unknown) date) seen (0-5/HPF) unknown) (unknown) (no (unknown) (unknown) Urine Specific (units (unknown) date) [place] 1.015 unknown) (unknown) (no (unknown) (unknown) Urine WBC (units (unkn own) date) (0-5/HPF) unknown) (unknown) (no (unknown) (unknown) Urine WBC 1-5/hpf (units (unknown) date) (0-5/HPF) unknown) (unknown) (no (unknown) (unknown) Vancomycin HCl (units (unknown) date) (Vancomycin Peak) unknown) 1 request MISC NOW ONE (unknown) (no (unknown) (unknown) Vancomycin HCl (units (unknown) date) (Vancomycin Per unknown) Pharmacy) 1 request MISC NOW ONE (unknown) (no (unknown) (unknown) Vancomycin HCl (units (unknown) date) (Vancomycin unknown) Trough) 1 request MISC NOW ONE (unknown) (no (unknown) (unknown) Vancomycin HCl (units (unknown) date) (Vancomycin) 750 unknown) mg in 150 mls @ 150 mls/hr IV NOW ONE (unknown) (no (unknown) (unknown) Vancomycin HCl (units (unknown) date) (Vancomycin) 750 unknown) mg in 150 mls @ 150 mls/hr IV Q8H EV[facility]ARDO (unknown) (no (unknown) (unknown) Vital Signs - 8 (units (unknown) date) hr unknown) (unknown) (no (unknown) (unknown) Vital Signs (units (un known) date) unknown) (unknown) (no (unknown) (unknown) Vital signs: (units (u nknown) date) unknown) (unknown) (no (unknown) (unknown) WBC (4.5-11.0) (units (unknown) date) X103/uL unknown) (unknown) (no (unknown) (unknown) WBC 4.5 (units (unkno wn) date) (4.5-11.0) X103/uL unknown) (unknown) (no (unknown) (unknown) XRay Report (units (un known) date) unknown) (unknown) (no (unknown) (unknown) [Embedded Image (units (unknown) date) Not Available] unknown) (unknown) (no (unknown) (unknown) and below, (units (unk nown) date) Unobtainable due unknown) to medical condition and Unobtainable due to mental (unknown) (no (unknown) (unknown) and her face. (units ( unknown) date) They went to unknown) [facility] last week she said she got an IV, (unknown) (no (unknown) (unknown) appear (units (unkno wn) date) unknown) (unknown) (no (unknown) (unknown) at for a short (units (unknown) date) time and now has unknown) been off it. (unknown) (no (unknown) (unknown) behavior has (units (u nknown) date) changed some in unknown) regards to she is spitting more. They do not (unknown) (no (unknown) (unknown) blood work and (units (unknown) date) doxepin for the unknown) itching. It was recommended that patient be (unknown) (no (unknown) (unknown) but does have an (units (unknown) date) elevated unknown) procalcitonin. She received sepsis fluids and (unknown) (no (unknown) (unknown) change in (units (unkn own) date) behavior. He is unknown) found to be sepsis with septic shock requiring (unknown) (no (unknown) (unknown) condition (units (unkn own) date) unknown) (unknown) (no (unknown) (unknown) continue to have (units (unknown) date) hypotension unknown) therefore vasopressors were started. (unknown) (no (unknown) (unknown) difficult to (units (u nknown) date) tell. They state unknown) that her communication has not changed. She (unknown) (no (unknown) (unknown) etiology (units (unkno wn) date) unknown) (unknown) (no (unknown) (unknown) findings and/or (units (unknown) date) return to baseline unknown) examination. (unknown) (no (unknown) (unknown) guarding or (units (un known) date) rebound. unknown) (unknown) (no (unknown) (unknown) household (units (unkn own) date) members: family unknown) (unknown) (no (unknown) (unknown) intact (units (unkno wn) date) unknown) (unknown) (no (unknown) (unknown) is not eating she (units (unknown) date) continues to drink unknown) some. She started spitting more. Her (unknown) (no (unknown) (unknown) is required (units (un known) date) anesthesia was unknown) called to place central line. She was empirically (unknown) (no (unknown) (unknown) mirtazapine (units (un known) date) AdvReac unknown) Intermediate Rash severe Verified 01/30/22 06:52 (unknown) (no (unknown) (unknown) most likely. (units (u nknown) date) unknown) (unknown) (no (unknown) (unknown) nonspecific and (units (unknown) date) may represent an unknown) infectious or inflammatory process with viral (unknown) (no (unknown) (unknown) olanzapine 15 mg (units (unknown) date) tablet 15 mg PO unknown) BEDTIME #90 tabs 09/23/20 (unknown) (no (unknown) (unknown) over 3 hr (1146 (units (unknown) date) ml) IV NOW ONE unknown) (unknown) (no (unknown) (unknown) patient's (units (unkn own) date) condition. unknown) (unknown) (no (unknown) (unknown) placed for (units (unk nown) date) psychiatric unknown) hospitalization but after a long wait parents (unknown) (no (unknown) (unknown) pneumothorax or (units (unknown) date) substantial unknown) pleural effusion. (unknown) (no (unknown) (unknown) poorly controled (units (unknown) date) schizophrenia she unknown) has frequent itching/picking she has (unknown) (no (unknown) (unknown) primary history (units (unknown) date) is taken from mom unknown) using language line. Patient has severe (unknown) (no (unknown) (unknown) reconsidered and (units (unknown) date) wanted to take her unknown) home. She developed a fever last night she (unknown) (no (unknown) (unknown) report worsening (units (unknown) date) hallucinations unknown) although patient really does not seem verbal (unknown) (no (unknown) (unknown) resolution of (units ( unknown) date) unknown) (unknown) (no (unknown) (unknown) right leg not sure (units (unknown) date) she is no longer unknown) on anticoagulation they said she only needed (unknown) (no (unknown) (unknown) scalp. Viral (units (u nknown) date) panel is negative unknown) no evidence of UTI or pneumonia. Central line (unknown) (no (unknown) (unknown) scratched her (units ( unknown) date) head so often the unknown) wounds on her head are actually getting worse (unknown) (no (unknown) (unknown) scratches (units (unkn own) date) unknown) (unknown) (no (unknown) (unknown) sniffing. She (units ( unknown) date) denies any pain. unknown) Mom reports cough. (unknown) (no (unknown) (unknown) started on (units (unk nown) date) antibiotics Zosyn unknown) and vancomycin. No fever in the ED no leukocytosis (unknown) (no (unknown) (unknown) the right cheek (units (unknown) date) unknown) (unknown) (no (unknown) (unknown) to the ICU. (units (un known) date) unknown) (unknown) (no (unknown) (unknown) unremarkable.? (units (unknown) date) unknown) (unknown) (no (unknown) (unknown) vasopressors. (units ( unknown) date) Probable infection unknown) is cellulitis from her multiple sores on her Result panel 471 (unknown) (no date) (unknown) (unknown) Negative (units (unkn own) unknown) (unknown) (no date) (unknown) (unknown) Normal (units (unkn own) unknown) Result panel 472 (unknown) (no date) (unknown) (unknown) > 60 ml/min (unkn own) (unknown) (no date) (unknown) (unknown) > 60 ml/min (unkn own) (unknown) (no date) (unknown) (unknown) 0.54 mg/dl (unkn own) (unknown) (no date) (unknown) (unknown) 107 mmol/l (unkn own) (unknown) (no date) (unknown) (unknown) 137 mmol/l (unkn own) (unknown) (no date) (unknown) (unknown) 137 mmol/l (unkn own) (unknown) (no date) (unknown) (unknown) 14.8 (units unknown) (unknown) (unknown) (no date) (unknown) (unknown) 23 mmol/l (unkn own) (unknown) (no date) (unknown) (unknown) 3.0 mmol/l (unkn own) (unknown) (no date) (unknown) (unknown) 3.0 mmol/l (unkn own) (unknown) (no date) (unknown) (unknown) 6.6 mg/dl (unkn own) (unknown) (no date) (unknown) (unknown) 6.6 mg/dl (unkn own) (unknown) (no date) (unknown) (unknown) 64 mg/dl (unkn own) (unknown) (no date) (unknown) (unknown) 64 mg/dl (unkn own) (unknown) (no date) (unknown) (unknown) 8 mg/dl (unkn own) Result panel 473 (unknown) (no date) (unknown) (unknown) 0 /ul (unkn own) (unknown) (no date) (unknown) (unknown) 0 /ul (unkn own) (unknown) (no date) (unknown) (unknown) 0.0 % (unkn own) (unknown) (no date) (unknown) (unknown) 0.3 % (unkn own) (unknown) (no date) (unknown) (unknown) 1000 /ul (unkn own) (unknown) (no date) (unknown) (unknown) 115 x10 3/ul (unkn own) (unknown) (no date) (unknown) (unknown) 115 x10 3/ul (unkn own) (unknown) (no date) (unknown) (unknown) 14.7 % (unkn own) (unknown) (no date) (unknown) (unknown) 21.3 % (unkn own) (unknown) (no date) (unknown) (unknown) 28.0 % (unkn own) (unknown) (no date) (unknown) (unknown) 28.0 % (unkn own) (unknown) (no date) (unknown) (unknown) 29.0 pg (unkn own) (unknown) (no date) (unknown) (unknown) 3.22 x10 6/ul (unkn own) (unknown) (no date) (unknown) (unknown) 300 /ul (unkn own) (unknown) (no date) (unknown) (unknown) 33.3 % (unkn own) (unknown) (no date) (unknown) (unknown) 3400 /ul (unkn own) (unknown) (no date) (unknown) (unknown) 4.7 x10 3/ul (unkn own) (unknown) (no date) (unknown) (unknown) 4.7 x10 3/ul (unkn own) (unknown) (no date) (unknown) (unknown) 7.2 % (unkn own) (unknown) (no date) (unknown) (unknown) 71.2 % (unkn own) (unknown) (no date) (unknown) (unknown) 87.1 fl (unkn own) (unknown) (no date) (unknown) (unknown) 9.3 g/dl (unkn own) (unknown) (no date) (unknown) (unknown) 9.3 g/dl (unkn own) Result panel 474 (unknown) (no date) (unknown) (unknown) > 60 ml/min (unkn own) (unknown) (no date) (unknown) (unknown) > 60 ml/min (unkn own) (unknown) (no date) (unknown) (unknown) 0.54 mg/dl (unkn own) (unknown) (no date) (unknown) (unknown) 0.87 ng/ml (unkn own) (unknown) (no date) (unknown) (unknown) 0.87 ng/ml (unkn own) (unknown) (no date) (unknown) (unknown) 107 mmol/l (unkn own) (unknown) (no date) (unknown) (unknown) 137 mmol/l (unkn own) (unknown) (no date) (unknown) (unknown) 137 mmol/l (unkn own) (unknown) (no date) (unknown) (unknown) 14.8 (units unknown) (unknown) (unknown) (no date) (unknown) (unknown) 23 mmol/l (unkn own) (unknown) (no date) (unknown) (unknown) 3.0 mmol/l (unkn own) (unknown) (no date) (unknown) (unknown) 3.0 mmol/l (unkn own) (unknown) (no date) (unknown) (unknown) 33.7 ng/ml (unkn own) (unknown) (no date) (unknown) (unknown) 6.6 mg/dl (unkn own) (unknown) (no date) (unknown) (unknown) 6.6 mg/dl (unkn own) (unknown) (no date) (unknown) (unknown) 64 mg/dl (unkn own) (unknown) (no date) (unknown) (unknown) 64 mg/dl (unkn own) (unknown) (no date) (unknown) (unknown) 8 mg/dl (unkn own) Result panel 475 (unknown) (no (unknown) (unknown) (no value) (units (unk nown) date) unknown) (unknown) (no (unknown) (unknown) <Electronically (units (unknown) date) signed by Amelia unknownSalvador Unger D.O.> (unknown) (no (unknown) (unknown) 08:22 08:22 08:22 (units (unknown) date) unknown) (unknown) (no (unknown) (unknown) 08:27 08:27 08:27 (units (unknown) date) unknown) (unknown) (no (unknown) (unknown) 08:27 08:42 09:20 (units (unknown) date) unknown) (unknown) (no (unknown) (unknown) 09:20 09:20 (units (un known) date) unknown) (unknown) (no (unknown) (unknown) 11:30 02/07/22 (units (unknown) date) unknown) (unknown) (no (unknown) (unknown) 11:30 (units (unkno wn) date) unknown) (unknown) (no (unknown) (unknown) 02/07/22 02/07/22 (units (unknown) date) 02/07/22 unknown) Range/Units (unknown) (no (unknown) (unknown) 02/07/22 02/07/22 (units (unknown) date) Range/Units unknown) (unknown) (no (unknown) (unknown) 02/07/22 (units (unkno wn) date) unknown) (unknown) (no (unknown) (unknown) 02/08/22 03:00 (units (unknown) date) unknown) (unknown) (no (unknown) (unknown) 02/08/22 0730 (units ( unknown) date) unknown) (unknown) (no (unknown) (unknown) 02/09/22 05:00 (units (unknown) date) unknown) (unknown) (no (unknown) (unknown) 02/10/22 05:00 (units (unknown) date) unknown) (unknown) (no (unknown) (unknown) ? (units (unkno wn) date) unknown) (unknown) (no (unknown) (unknown) ABDOMEN: Soft, (units (unknown) date) nontender. unknown) Normoactive bowel sounds all 4 quadrants. No (unknown) (no (unknown) (unknown) ALT (<35) IU/L (units (unknown) date) unknown) (unknown) (no (unknown) (unknown) ALT 33 (<35) IU/L (units (unknown) date) unknown) (unknown) (no (unknown) (unknown) AST (14-36) IU/L (units (unknown) date) unknown) (unknown) (no (unknown) (unknown) AST 87 H (14-36) (units (unknown) date) IU/L unknown) (unknown) (no (unknown) (unknown) Accession Number: (units (unknown) date) [id number] ?? unknown) (unknown) (no (unknown) (unknown) Acct:[id number] (units (unknown) date) unknown) (unknown) (no (unknown) (unknown) Acetaminophen (units ( unknown) date) (Acetaminophen 325 unknown) Mg Tablet) 650 mg PO Q6H PRN (unknown) (no (unknown) (unknown) Acetaminophen (units ( unknown) date) (Acetaminophen 325 unknown) Mg Tablet) 975 mg PO NOW ONE (unknown) (no (unknown) (unknown) Admin: 02/07/22 (units (unknown) date) 09:00 Dose: 1,000 unknown) mls/hr (unknown) (no (unknown) (unknown) Admin: 02/07/22 (units (unknown) date) 09:08 Dose: 200 unknown) mls/hr (unknown) (no (unknown) (unknown) Admin: 02/07/22 (units (unknown) date) 09:51 Dose: 150 unknown) mls/hr (unknown) (no (unknown) (unknown) Admin: 02/07/22 (units (unknown) date) 10:34 Dose: 382 unknown) mls/hr (unknown) (no (unknown) (unknown) Admin: 02/07/22 (units (unknown) date) 12:59 Dose: 2 unknown) mcg/min, 7.5 mls/hr (unknown) (no (unknown) (unknown) Admin: 02/07/22 (units (unknown) date) 13:11 Dose: 200 unknown) mls/hr (unknown) (no (unknown) (unknown) Admin: 02/07/22 (units (unknown) date) 16:26 Dose: 250 unknown) mls/hr (unknown) (no (unknown) (unknown) Admin: 02/07/22 (units (unknown) date) 18:30 Dose: 150 unknown) mls/hr (unknown) (no (unknown) (unknown) Admin: 02/07/22 (units (unknown) date) 21:54 Dose: 25 unknown) mls/hr (unknown) (no (unknown) (unknown) Admin: 02/07/22 (units (unknown) date) 23:14 Dose: 25 mg unknown) (unknown) (no (unknown) (unknown) Admin: 02/08/22 (units (unknown) date) 01:54 Dose: 150 unknown) mls/hr (unknown) (no (unknown) (unknown) Admin: 02/08/22 (units (unknown) date) 02:00 Dose: 25 mg unknown) (unknown) (no (unknown) (unknown) Admit Date/Time: (units (unknown) date) 02/07/22 11:54 unknown) (unknown) (no (unknown) (unknown) Admit Provider: (units (unknown) date) Yaakov Costa unknown) (unknown) (no (unknown) (unknown) Age/Sex: 31 / F (units (unknown) date) unknown) (unknown) (no (unknown) (unknown) Albumin (3.5-5.0) (units (unknown) date) g/dL unknown) (unknown) (no (unknown) (unknown) Albumin 3.6 (units (un known) date) (3.5-5.0) g/dL unknown) (unknown) (no (unknown) (unknown) Albumin/Globulin (units (unknown) date) Ratio (1.0-2.8) unknown) (unknown) (no (unknown) (unknown) Albumin/Globulin (units (unknown) date) Ratio 0.8 L unknown) (1.0-2.8) (unknown) (no (unknown) (unknown) Alkaline (units (unkno wn) date) Phosphatase unknown) (38-126) U/L (unknown) (no (unknown) (unknown) Alkaline (units (unkno wn) date) Phosphatase 46 unknown) (38-126) U/L (unknown) (no (unknown) (unknown) Allergies (units (unkn own) date) unknown) (unknown) (no (unknown) (unknown) Allergy/AdvReac (units (unknown) date) Type Severity unknown) Reaction Status Date / Time (unknown) (no (unknown) (unknown) Approved by: Mikel (units (unknown) date) Figueroa Nur on unknown) 02/07/2022 at 9:09 ? (unknown) (no (unknown) (unknown) Aripiprazole (units (u nknown) date) (Aripiprazole 10 Mg unknown) Tablet) 10 mg PO DAILY EVERARDO (unknown) (no (unknown) (unknown) Attestation: (units (u nknown) date) unknown) (unknown) (no (unknown) (unknown) Azithromycin 500 (units (unknown) date) mg/ Dextrose 250 unknown) mls @ 250 mls/hr IV Q24H EVERARDO (unknown) (no (unknown) (unknown) BMP [Basic (units (unk nown) date) Metabolic Panel] unknown) DAILY (unknown) (no (unknown) (unknown) BUN (7-17) mg/dL (units (unknown) date) unknown) (unknown) (no (unknown) (unknown) BUN 14 (7-17) (units ( unknown) date) mg/dL unknown) (unknown) (no (unknown) (unknown) BUN/Creatinine (units (unknown) date) Ratio (6-22) unknown) (unknown) (no (unknown) (unknown) BUN/Creatinine (units (unknown) date) Ratio 21.9 (6-22) unknown) (unknown) (no (unknown) (unknown) Baso # (Auto) (units ( unknown) date) (0-100) /uL unknown) (unknown) (no (unknown) (unknown) Baso # (Auto) 0 (units (unknown) date) (0-100) /uL unknown) (unknown) (no (unknown) (unknown) Baso % (Auto) (units ( unknown) date) (0-2) % unknown) (unknown) (no (unknown) (unknown) Baso % (Auto) 0.5 (units (unknown) date) (0-2) % unknown) (unknown) (no (unknown) (unknown) Bedside Urine (units ( unknown) date) Bilirubin - unknown) Negative (unknown) (no (unknown) (unknown) Bedside Urine (units ( unknown) date) Glucose Negative unknown) (unknown) (no (unknown) (unknown) Bedside Urine (units ( unknown) date) Ketone - Negative unknown) (unknown) (no (unknown) (unknown) Bedside Urine (units ( unknown) date) Leukocytes - unknown) Negative (unknown) (no (unknown) (unknown) Bedside Urine (units ( unknown) date) Nitrite - Negative unknown) (unknown) (no (unknown) (unknown) Bedside Urine (units ( unknown) date) Occult Blood - unknown) Negative (unknown) (no (unknown) (unknown) Bedside Urine (units ( unknown) date) Protein + 30 unknown) (unknown) (no (unknown) (unknown) Bedside Urine (units ( unknown) date) Urobilinogen - unknown) Negative (unknown) (no (unknown) (unknown) Bedside Urine pH 6 (units (unknown) date) unknown) (unknown) (no (unknown) (unknown) Blood Pressure (units (unknown) date) 100/57 L 02/07/22 unknown) 08:10 (unknown) (no (unknown) (unknown) Blood Pressure (units (unknown) date) 100/62 unknown) (unknown) (no (unknown) (unknown) Bones and chest (units (unknown) date) wall:? No unknown) suspicious bony lesions.? Overlying soft tissues (unknown) (no (unknown) (unknown) CARDIOVASCULAR: (units (unknown) date) Regular rate and unknown) rhythm without murmurs, rubs or gallops. (unknown) (no (unknown) (unknown) CBC Auto Diff (units ( unknown) date) [Complete Blood unknown) Count AUTO DIFF] DAILY (unknown) (no (unknown) (unknown) CK-MB (CK-2) (units (u nknown) date) (<2.37) ng/mL unknown) (unknown) (no (unknown) (unknown) CK-MB (CK-2) 2.02 (units (unknown) date) (<2.37) ng/mL unknown) (unknown) (no (unknown) (unknown) CK-MB (CK-2) Rel (units (unknown) date) Index (1.5-5.0) % unknown) (unknown) (no (unknown) (unknown) CK-MB (CK-2) Rel (units (unknown) date) Index 0.2 L unknown) (1.5-5.0) % (unknown) (no (unknown) (unknown) COMPARISON:? (units (u nknown) date) [facility] unknown) [facility], CR, XR CHEST 1 VIEW, 12/01/2018, 14:33. (unknown) (no (unknown) (unknown) Calcium (8.4-10.2) (units (unknown) date) mg/dL unknown) (unknown) (no (unknown) (unknown) Calcium 8.3 L (units ( unknown) date) (8.4-10.2) mg/dL unknown) (unknown) (no (unknown) (unknown) Carbon Dioxide (units (unknown) date) (22-32) mmol/L unknown) (unknown) (no (unknown) (unknown) Carbon Dioxide 23 (units (unknown) date) (22-32) mmol/L unknown) (unknown) (no (unknown) (unknown) Ceftriaxone Sodium (units (unknown) date) 1,000 mg/ (Sodium unknown) Chloride) 100 mls @ 200 mls/hr IV Q24H EVERARDO (unknown) (no (unknown) (unknown) Ceftriaxone Sodium (units (unknown) date) 2,000 mg/ (Sodium unknown) Chloride) 100 mls @ 200 mls/hr IV NOW ONE (unknown) (no (unknown) (unknown) Chest x-ray: (units (u nknown) date) unknown) (unknown) (no (unknown) (unknown) Chief Complaint: (units (unknown) date) Altered Mental unknown) Status (unknown) (no (unknown) (unknown) Chloride (98-107) (units (unknown) date) mmol/L unknown) (unknown) (no (unknown) (unknown) Chloride 99 (units (un known) date) (98-107) mmol/L unknown) (unknown) (no (unknown) (unknown) Clinical (units (unkno wn) date) Impression: unknown) (unknown) (no (unknown) (unknown) Course (units (unkno wn) date) unknown) (unknown) (no (unknown) (unknown) Creatinine (units (unk nown) date) (0.52-1.04) mg/dL unknown) (unknown) (no (unknown) (unknown) Creatinine 0.64 (units (unknown) date) (0.52-1.04) mg/dL unknown) (unknown) (no (unknown) (unknown) Critical Care Time (units (unknown) date) unknown) (unknown) (no (unknown) (unknown) Critical Care (units ( unknown) date) Time: Yes unknown) (unknown) (no (unknown) (unknown) D-Dimer (<500) (units (unknown) date) ng/ml unknown) (unknown) (no (unknown) (unknown) D-Dimer 2351 H (units (unknown) date) (<500) ng/ml unknown) (unknown) (no (unknown) (unknown) : 1990 (units (unknown) date) Acct:[id number] unknown) (unknown) (no (unknown) (unknown) : 1990 (units (unknown) date) unknown) (unknown) (no (unknown) (unknown) Date of Service: (units (unknown) date) 02/07/22 unknown) (unknown) (no (unknown) (unknown) Departure (units (unkn own) date) unknown) (unknown) (no (unknown) (unknown) Dictated by: Mikel (units (unknown) date) Figueroa Nur on unknown) 02/07/2022 at 9:08 ? ? (unknown) (no (unknown) (unknown) Diphenhydramine (units (unknown) date) HCl unknown) (Diphenhydramine 50 Mg/Ml Vial) 25 mg IV Q4HR PRN (unknown) (no (unknown) (unknown) Discharge Plan (units (unknown) date) unknown) (unknown) (no (unknown) (unknown) Discontinued (units (u nknown) date) Medications unknown) (unknown) (no (unknown) (unknown) Documented By: HANNY (units (unknown) date) unknown) (unknown) (no (unknown) (unknown) Documented By: DL (units (unknown) date) unknown) (unknown) (no (unknown) (unknown) Documented By: KM (units (unknown) date) unknown) (unknown) (no (unknown) (unknown) Dr. Costa updated (units (unknown) date) on patient's unknown) symptoms test results and kindly accepts patient (unknown) (no (unknown) (unknown) ECG Data (units (unkno wn) date) unknown) (unknown) (no (unknown) (unknown) ED Orders (units (unkn own) date) unknown) (unknown) (no (unknown) (unknown) ER Physician: (units ( unknown) date) Amelia Unger D.O. unknown) (unknown) (no (unknown) (unknown) EXTREMITIES: (units (u nknown) date) Normal range of unknown) motion, no clubbing or edema. Neurovascularly (unknown) (no (unknown) (unknown) Emergency Report (units (unknown) date) unknown) (unknown) (no (unknown) (unknown) Enoxaparin Sodium (units (unknown) date) (Enoxaparin 40 unknown) Mg/0.4 Ml Syringe) 40 mg SUBCUT DAILY EVERARDO (unknown) (no (unknown) (unknown) Eos # (Auto) (units (u nknown) date) (0-450) /uL unknown) (unknown) (no (unknown) (unknown) Eos # (Auto) 0 (units (unknown) date) (0-450) /uL unknown) (unknown) (no (unknown) (unknown) Eos % (Auto) (2-4) (units (unknown) date) % unknown) (unknown) (no (unknown) (unknown) Eos % (Auto) 0.0 L (units (unknown) date) (2-4) % unknown) (unknown) (no (unknown) (unknown) Esterase (units (unkno wn) date) unknown) (unknown) (no (unknown) (unknown) Estimated GFR > 60 (units (unknown) date) (>60) mL/min unknown) (unknown) (no (unknown) (unknown) Estimated GFR (units ( unknown) date) (>60) mL/min unknown) (unknown) (no (unknown) (unknown) Exam (units (unkno wn) date) unknown) (unknown) (no (unknown) (unknown) FINDINGS:? (units (unk nown) date) unknown) (unknown) (no (unknown) (unknown) Findings are (units (u nknown) date) unknown) (unknown) (no (unknown) (unknown) Fluoxetine HCl (units (unknown) date) (Fluoxetine 10 Mg unknown) Capsule) 20 mg PO DAILY EVERARDO (unknown) (no (unknown) (unknown) GENERAL: Thin (units ( unknown) date) 31-year-old female unknown) (unknown) (no (unknown) (unknown) : Incontinent of (units (unknown) date) urine unknown) (unknown) (no (unknown) (unknown) General (units (unkno wn) date) unknown) (unknown) (no (unknown) (unknown) Globulin (1.7-4.1) (units (unknown) date) g/dL unknown) (unknown) (no (unknown) (unknown) Globulin 4.3 H (units (unknown) date) (1.7-4.1) g/dL unknown) (unknown) (no (unknown) (unknown) Glucose (70-100) (units (unknown) date) mg/dL unknown) (unknown) (no (unknown) (unknown) Glucose 113 H (units ( unknown) date) (70-100) mg/dL unknown) (unknown) (no (unknown) (unknown) HEENT: Head (units (un known) date) atraumatic,EOMI, unknown) pupils reactive, multiple face scratches mostly on (unknown) (no (unknown) (unknown) HPI - Fever (units (un known) date) unknown) (unknown) (no (unknown) (unknown) HPI Narrative: (units (unknown) date) unknown) (unknown) (no (unknown) (unknown) Haloperidol (units (un known) date) (Haloperidol 5 unknown) Mg/Ml Vial) 5 mg IV Q4HR PRN (unknown) (no (unknown) (unknown) Hct (36-46) % (units ( unknown) date) unknown) (unknown) (no (unknown) (unknown) Hct 32.5 L (36-46) (units (unknown) date) % unknown) (unknown) (no (unknown) (unknown) Hgb (12.0-16.0) (units (unknown) date) g/dL unknown) (unknown) (no (unknown) (unknown) Hgb 10.9 L (units (unk nown) date) (12.0-16.0) g/dL unknown) (unknown) (no (unknown) (unknown) 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) (unknown) (no (unknown) (unknown) History of Present (units (unknown) date) Illness unknown) (unknown) (no (unknown) (unknown) History of (units (unk nown) date) pulmonary embolism unknown) (unknown) (no (unknown) (unknown) IMPRESSION:? (units (u nknown) date) Diffuse unknown) interstitial prominence without focal consolidation.? (unknown) (no (unknown) (unknown) INDICATIONS:? (units ( unknown) date) fever unknown) (unknown) (no (unknown) (unknown) IV NOW ONE (units (unk nown) date) unknown) (unknown) (no (unknown) (unknown) IV Q8H EVERARDO (units (unk nown) date) unknown) (unknown) (no (unknown) (unknown) Imaging Data (units (u nknown) date) unknown) (unknown) (no (unknown) (unknown) Influenza A (units (un known) date) (RT-PCR) (NEGATIVE) unknown) (unknown) (no (unknown) (unknown) Influenza A (units (un known) date) (RT-PCR) Flu a unknown) negative (NEGATIVE) (unknown) (no (unknown) (unknown) Influenza B (units (un known) date) (RT-PCR) (NEGATIVE) unknown) (unknown) (no (unknown) (unknown) Influenza B (units (un known) date) (RT-PCR) Flu b unknown) negative (NEGATIVE) (unknown) (no (unknown) (unknown) Influenza Virus (units (unknown) date) Vaccine (Influenza unknown) Vaccine Qiv 0.5 Ml Syringe) 0.5 ml IM .ONCE (unknown) (no (unknown) (unknown) Infusion: 02/07/22 (units (unknown) date) 19:45 Dose: 0 unknown) mls/hr (unknown) (no (unknown) (unknown) Infusion: 02/08/22 (units (unknown) date) 02:08 Dose: 0 unknown) mls/hr (unknown) (no (unknown) (unknown) Initial Vital (units ( unknown) date) Signs unknown) (unknown) (no (unknown) (unknown) Initial Vital (units ( unknown) date) Signs: unknown) (unknown) (no (unknown) (unknown) Interpretation: (units (unknown) date) unknown) (unknown) (no (unknown) (unknown) [facility] (units (unknown) date) [address] unknown) [place] [address] (unknown) (no (unknown) (unknown) Ketorolac (units (unkn own) date) Tromethamine unknown) (Ketorolac 30 Mg/Ml Vial) 15 mg IV NOW ONE (unknown) (no (unknown) (unknown) Lab Data (units (unkno wn) date) unknown) (unknown) (no (unknown) (unknown) Lab Results (units (un known) date) unknown) (unknown) (no (unknown) (unknown) Labs: (units (unkno wn) date) unknown) (unknown) (no (unknown) (unknown) Lactate (0.7-2.1) (units (unknown) date) mmol/L unknown) (unknown) (no (unknown) (unknown) Lactate 1.6 (units (un known) date) (0.7-2.1) mmol/L unknown) (unknown) (no (unknown) (unknown) Last Admin: (units (un known) date) 02/07/22 09:07 unknown) Dose: 15 mg (unknown) (no (unknown) (unknown) Last Admin: (units (un known) date) 02/07/22 11:11 unknown) Dose: 20 mg (unknown) (no (unknown) (unknown) Last Admin: (units (un known) date) 02/07/22 11:11 unknown) Dose: 975 mg (unknown) (no (unknown) (unknown) Last Admin: (units (un known) date) 02/07/22 15:53 unknown) Dose: Not Given (unknown) (no (unknown) (unknown) Last Admin: (units (un known) date) 02/07/22 17:26 unknown) Dose: Not Given (unknown) (no (unknown) (unknown) Last Admin: (units (un known) date) 02/07/22 18:15 unknown) Dose: Not Given (unknown) (no (unknown) (unknown) Last Admin: (units (un known) date) 02/07/22 21:50 unknown) Dose: Not Given (unknown) (no (unknown) (unknown) Last Admin: (units (un known) date) 02/08/22 04:46 unknown) Dose: 25 mls/hr (unknown) (no (unknown) (unknown) Last Admin: (units (un known) date) 02/08/22 05:27 unknown) Dose: 25 mg (unknown) (no (unknown) (unknown) Last Infusion: (units (unknown) date) 02/07/22 09:57 unknown) Dose: 0 mls/hr (unknown) (no (unknown) (unknown) Last Infusion: (units (unknown) date) 02/07/22 11:17 unknown) Dose: 0 mls/hr (unknown) (no (unknown) (unknown) Last Infusion: (units (unknown) date) 02/07/22 13:16 unknown) Dose: 0 mls/hr (unknown) (no (unknown) (unknown) Last Infusion: (units (unknown) date) 02/07/22 15:53 unknown) Dose: 0 mls/hr (unknown) (no (unknown) (unknown) Last Infusion: (units (unknown) date) 02/07/22 17:27 unknown) Dose: 0 mls/hr (unknown) (no (unknown) (unknown) Last Infusion: (units (unknown) date) 02/08/22 03:04 unknown) Dose: 0 mls/hr (unknown) (no (unknown) (unknown) Last Titration: (units (unknown) date) 02/08/22 02:08 unknown) Dose: 0 mcg/min, 0 mls/hr (unknown) (no (unknown) (unknown) Loc: ED (units (unkno wn) date) unknown) (unknown) (no (unknown) (unknown) Lungs and pleura:? (units (unknown) date) Diffuse unknown) interstitial prominence.? No focal consolidation.? No (unknown) (no (unknown) (unknown) Lymph # (Auto) (units (unknown) date) (3116-8704) /uL unknown) (unknown) (no (unknown) (unknown) Lymph # (Auto) 900 (units (unknown) date) L (9367-8548) /uL unknown) (unknown) (no (unknown) (unknown) Lymph % (Auto) (units (unknown) date) (25-40) % unknown) (unknown) (no (unknown) (unknown) Lymph % (Auto) (units (unknown) date) 20.7 L (25-40) % unknown) (unknown) (no (unknown) (unknown) [id number] (units (unk nown) date) unknown) (unknown) (no (unknown) (unknown) MCH (26-34) PG (units (unknown) date) unknown) (unknown) (no (unknown) (unknown) MCH 28.7 (26-34) (units (unknown) date) PG unknown) (unknown) (no (unknown) (unknown) MCHC (30-36) % (units (unknown) date) unknown) (unknown) (no (unknown) (unknown) MCHC 33.5 (30-36) (units (unknown) date) % unknown) (unknown) (no (unknown) (unknown) MCV (80-100) fL (units (unknown) date) unknown) (unknown) (no (unknown) (unknown) MCV 85.7 (80-100) (units (unknown) date) fL unknown) (unknown) (no (unknown) (unknown) MDM - Fever (units (un known) date) unknown) (unknown) (no (unknown) (unknown) MDM Narrative (units ( unknown) date) unknown) (unknown) (no (unknown) (unknown) MR#: [id number] (units (unknown) date) unknown) (unknown) (no (unknown) (unknown) Magnesium (units (unkn own) date) (1.6-2.3) mg/dL unknown) (unknown) (no (unknown) (unknown) Magnesium 2.1 (units ( unknown) date) (1.6-2.3) mg/dL unknown) (unknown) (no (unknown) (unknown) Mediastinum:? (units ( unknown) date) Mediastinal unknown) contours appear normal.? Heart size is normal.? (unknown) (no (unknown) (unknown) Medical History (units (unknown) date) (Updated 02/07/22 @ unknown) 20:57 by Amelia Unger DO) (unknown) (no (unknown) (unknown) Medical decision (units (unknown) date) making narrative: unknown) (unknown) (no (unknown) (unknown) Medication (units (unk nown) date) Instructions unknown) Recorded (unknown) (no (unknown) (unknown) Melatonin (units (unkn own) date) (Melatonin 3 Mg unknown) Tablet) 6 mg PO BEDTIME PRN (unknown) (no (unknown) (unknown) Mode of arrival: (units (unknown) date) Wheelchair unknown) (unknown) (no (unknown) (unknown) Butts # (Auto) (units ( unknown) date) (0-900) /uL unknown) (unknown) (no (unknown) (unknown) Butts # (Auto) 500 (units (unknown) date) (0-900) /uL unknown) (unknown) (no (unknown) (unknown) Butts % (Auto) (units ( unknown) date) (3-14) % unknown) (unknown) (no (unknown) (unknown) Butts % (Auto) 10.1 (units (unknown) date) (3-14) % unknown) (unknown) (no (unknown) (unknown) NEUROLOGICAL: (units ( unknown) date) Moving all unknown) extremities (unknown) (no (unknown) (unknown) NOREPINEPHRINE (units (unknown) date) BITARTRATE/D5W unknown) (Levophed) 4 mg in 250 mls @ 30 mls/hr IV TITRATE (unknown) (no (unknown) (unknown) Naloxone HCl (units (u nknown) date) (Naloxone 0.4 Mg/Ml unknown) Vial) 0.2 mg IV Q2MIN PRN (unknown) (no (unknown) (unknown) Neut # (Auto) (units ( unknown) date) (3067-8768) /uL unknown) (unknown) (no (unknown) (unknown) Neut # (Auto) 3100 (units (unknown) date) (2409-4632) /uL unknown) (unknown) (no (unknown) (unknown) Neut % (Auto) (units ( unknown) date) (50-75) % unknown) (unknown) (no (unknown) (unknown) Neut % (Auto) 68.7 (units (unknown) date) (50-75) % unknown) (unknown) (no (unknown) (unknown) ONE (units (unkno wn) date) unknown) (unknown) (no (unknown) (unknown) Olanzapine (units (unk nown) date) (Olanzapine 2.5 Mg unknown) Tablet) 5 mg PO BEDTIME EVERARDO (unknown) (no (unknown) (unknown) Olanzapine (units (unk nown) date) (Olanzapine Odt 10 unknown) Mg Tab) 20 mg PO BEDTIME EVERARDO (unknown) (no (unknown) (unknown) Olanzapine (units (unk nown) date) (Olanzapine Odt 10 unknown) Mg Tab) 20 mg PO NOW ONE (unknown) (no (unknown) (unknown) Ordered: (units (unkno wn) date) unknown) (unknown) (no (unknown) (unknown) Ordering Provider: (units (unknown) date) Amelia Unger D.O. unknown) (unknown) (no (unknown) (unknown) Orders (units (unkno wn) date) unknown) (unknown) (no (unknown) (unknown) Oxygen Delivery (units (unknown) date) Method 02/07/22 unknown) 08:10 (unknown) (no (unknown) (unknown) PRN Reason: (units (un known) date) Agitation unknown) (unknown) (no (unknown) (unknown) PRN Reason: (units (un known) date) Constipation unknown) (unknown) (no (unknown) (unknown) PRN Reason: (units (un known) date) Fever/Mild Pain unknown) (1-3) (unknown) (no (unknown) (unknown) PRN Reason: (units (un known) date) Insomnia unknown) (unknown) (no (unknown) (unknown) PRN Reason: (units (un known) date) Itching unknown) (unknown) (no (unknown) (unknown) PRN Reason: Opiate (units (unknown) date) Reversal unknown) (unknown) (no (unknown) (unknown) PRN (units (unkno wn) date) unknown) (unknown) (no (unknown) (unknown) PROCEDURE:? XR (units (unknown) date) CHEST 1V unknown) (unknown) (no (unknown) (unknown) Patient (units (unkno wn) date) Disposition: unknown) Admitted As Inpatient (unknown) (no (unknown) (unknown) Patient History (units (unknown) date) unknown) (unknown) (no (unknown) (unknown) Patient is a (units (u nknown) date) 31-year-old female unknown) history of schizophrenia language barrier (unknown) (no (unknown) (unknown) Patient presents (units (unknown) date) today with fever, unknown) decreased appetite decreased oral intake and (unknown) (no (unknown) (unknown) Patient remote (units (unknown) date) history of DVT mom unknown) states that she previously had surgery in her (unknown) (no (unknown) (unknown) Patient: (units (unkno wn) date) Vanessa Mills unknown) MR#: (unknown) (no (unknown) (unknown) Patient: (units (unkno wn) date) Vanessa [place] unknown) (unknown) (no (unknown) (unknown) Piperacillin (units (u nknown) date) Sod/Tazobactam (Sod unknown) 3.375 gm/ Sodium Chloride) 100 mls @ 25 mls/hr (unknown) (no (unknown) (unknown) Piperacillin (units (u nknown) date) Sod/Tazobactam (Sod unknown) 4.5 gm/ Sodium Chloride) 100 mls @ 200 mls/hr (unknown) (no (unknown) (unknown) Piperacillin (units (u nknown) date) Sod/Tazobactam (Sod unknown) 4.5 gm/ Sodium Chloride) 100 mls @ 25 mls/hr (unknown) (no (unknown) (unknown) Plt Count (units (unkn own) date) (150-400) X103/uL unknown) (unknown) (no (unknown) (unknown) Plt Count 155 (units ( unknown) date) (150-400) X103/uL unknown) (unknown) (no (unknown) (unknown) Point of Care (units ( unknown) date) Testing unknown) (unknown) (no (unknown) (unknown) Polyethylene (units (u nknown) date) Glycol unknown) (Polyethylene Glycol 3350 17 Gm Powd.Pack) 17 gm PO DAILY (unknown) (no (unknown) (unknown) Potassium (units (unkn own) date) (3.4-5.1) mmol/L unknown) (unknown) (no (unknown) (unknown) Potassium 3.6 (units ( unknown) date) (3.4-5.1) mmol/L unknown) (unknown) (no (unknown) (unknown) Test (units (unknown) date) Results Negative unknown) (unknown) (no (unknown) (unknown) Previous Rx's (units ( unknown) date) unknown) (unknown) (no (unknown) (unknown) Procalcitonin (units ( unknown) date) (<0.5) ng/mL unknown) (unknown) (no (unknown) (unknown) Procalcitonin 1.08 (units (unknown) date) H (<0.5) ng/mL unknown) (unknown) (no (unknown) (unknown) Procalcitonin (units ( unknown) date) Urgent unknown) (unknown) (no (unknown) (unknown) Procedure: XR (units ( unknown) date) chest 1V unknown) (unknown) (no (unknown) (unknown) Pulse Oximetry 97 (units (unknown) date) 12/12/22 08:10 unknown) (unknown) (no (unknown) (unknown) Pulse Oximetry 98 (units (unknown) date) unknown) (unknown) (no (unknown) (unknown) Pulse Rate 121 H (units (unknown) date) 02/07/22 08:10 unknown) (unknown) (no (unknown) (unknown) Pulse Rate 93 H (units (unknown) date) unknown) (unknown) (no (unknown) (unknown) RBC (4.0-5.2) (units ( unknown) date) X106/uL unknown) (unknown) (no (unknown) (unknown) RBC 3.79 L (units (unk nown) date) (4.0-5.2) X106/uL unknown) (unknown) (no (unknown) (unknown) RDW (11.6-14.8) % (units (unknown) date) unknown) (unknown) (no (unknown) (unknown) RDW 14.1 (units (unkno wn) date) (11.6-14.8) % unknown) (unknown) (no (unknown) (unknown) RESPIRATORY: (units (u nknown) date) Breath sounds equal unknown) bilaterally, no wheezes rales or rhonchi. (unknown) (no (unknown) (unknown) ROS Unobtainable: (units (unknown) date) All systems unknown) reviewed + are unremarkable except as noted in HPI (unknown) (no (unknown) (unknown) RSV (PCR) (units (unkn own) date) (Negative) unknown) (unknown) (no (unknown) (unknown) RSV (PCR) Negative (units (unknown) date) (Negative) unknown) (unknown) (no (unknown) (unknown) Radiologist's (units ( unknown) date) Impression: unknown) (unknown) (no (unknown) (unknown) Recommend follow (units (unknown) date) up chest radiograph unknown) 4-6 weeks after treatment to document (unknown) (no (unknown) (unknown) Related Data (units (u nknown) date) unknown) (unknown) (no (unknown) (unknown) Respiratory Rate (units (unknown) date) 32 H unknown) (unknown) (no (unknown) (unknown) Respiratory Rate (units (unknown) date) 33 H 02/07/22 08:10 unknown) (unknown) (no (unknown) (unknown) Respiratory panel (units (unknown) date) is also Negative. unknown) (unknown) (no (unknown) (unknown) Result diagrams: (units (unknown) date) unknown) (unknown) (no (unknown) (unknown) Review of Systems (units (unknown) date) unknown) (unknown) (no (unknown) (unknown) SARS-CoV-2 (PCR) (units (unknown) date) (Negative) unknown) (unknown) (no (unknown) (unknown) SARS-CoV-2 (PCR) (units (unknown) date) Negative (Negative) unknown) (unknown) (no (unknown) (unknown) EVERARDO; Protocol (units ( unknown) date) unknown) (unknown) (no (unknown) (unknown) SKIN: Severe scalp (units (unknown) date) abrasions not unknown) growing hair mild drainage erythema facial (unknown) (no (unknown) (unknown) Schizophrenia (units ( unknown) date) unknown) (unknown) (no (unknown) (unknown) Sennosides (units (unk nown) date) (Sennosides 8.6 Mg unknown) Tablet) 8.6 mg PO BID PRN (unknown) (no (unknown) (unknown) Septic shock (units (u nknown) date) unknown) (unknown) (no (unknown) (unknown) Signed By: (units (unk nown) date) unknown) (unknown) (no (unknown) (unknown) Signed (units (unkno wn) date) unknown) (unknown) (no (unknown) (unknown) Sinus rhythm rate (units (unknown) date) 113 [place] interval 132 unknown) QRS [address] changes or T-wave (unknown) (no (unknown) (unknown) Smoking Status: (units (unknown) date) Never smoker unknown) (unknown) (no (unknown) (unknown) Social History (units (unknown) date) unknown) (unknown) (no (unknown) (unknown) Sodium (137-145) (units (unknown) date) mmol/L unknown) (unknown) (no (unknown) (unknown) Sodium 134 L (units (u nknown) date) (137-145) mmol/L unknown) (unknown) (no (unknown) (unknown) Sodium Chloride (units (unknown) date) (Normal Saline unknown) 0.9%) 1,000 mls @ 1,000 mls/hr IV BOLUS ONE (unknown) (no (unknown) (unknown) Sodium Chloride (units (unknown) date) (Normal Saline unknown) 0.9%) 1,146 mls @ 382 mls/hr 30 ml/kg infuse (unknown) (no (unknown) (unknown) Source: patient (units (unknown) date) unknown) (unknown) (no (unknown) (unknown) Stated Complaint: (units (unknown) date) she has wounds on unknown) head, not eating, mucas in nose (unknown) (no (unknown) (unknown) Stop: 02/07/22 (units (unknown) date) 08:48 unknown) (unknown) (no (unknown) (unknown) Stop: 02/07/22 (units (unknown) date) 08:50 unknown) (unknown) (no (unknown) (unknown) Stop: 02/07/22 (units (unknown) date) 09:44 unknown) (unknown) (no (unknown) (unknown) Stop: 02/07/22 (units (unknown) date) 09:48 unknown) (unknown) (no (unknown) (unknown) Stop: 02/07/22 (units (unknown) date) 11:06 unknown) (unknown) (no (unknown) (unknown) Stop: 02/07/22 (units (unknown) date) 11:07 unknown) (unknown) (no (unknown) (unknown) Stop: 02/07/22 (units (unknown) date) 11:16 unknown) (unknown) (no (unknown) (unknown) Stop: 02/07/22 (units (unknown) date) 12:56 unknown) (unknown) (no (unknown) (unknown) Stop: 02/07/22 (units (unknown) date) 13:07 unknown) (unknown) (no (unknown) (unknown) Stop: 02/07/22 (units (unknown) date) 15:39 unknown) (unknown) (no (unknown) (unknown) Stop: 02/08/22 (units (unknown) date) 09:31 unknown) (unknown) (no (unknown) (unknown) Stop: 02/08/22 (units (unknown) date) 12:01 unknown) (unknown) (no (unknown) (unknown) Stop: 02/09/22 (units (unknown) date) 18:57 unknown) (unknown) (no (unknown) (unknown) Stop: 02/11/22 (units (unknown) date) 08:59 unknown) (unknown) (no (unknown) (unknown) Substance Use (units ( unknown) date) Type: does not use unknown) (unknown) (no (unknown) (unknown) Surgical changes (units (unknown) date) and devices:? unknown) None.? (unknown) (no (unknown) (unknown) TECHNIQUE:? One (units (unknown) date) view of the chest unknown) was acquired.? (unknown) (no (unknown) (unknown) Temperature 100.6 (units (unknown) date) F H unknown) (unknown) (no (unknown) (unknown) Temperature 101.8 (units (unknown) date) F H 02/07/22 08:10 unknown) (unknown) (no (unknown) (unknown) The high (units (unkno wn) date) probability of a unknown) clinically significant, sudden or life threatening (unknown) (no (unknown) (unknown) Time Seen by (units (u nknown) date) Provider: 02/07/22 unknown) 08:08 (unknown) (no (unknown) (unknown) Titration: (units (unk nown) date) 02/07/22 13:24 unknown) Dose: 3 mcg/min, 11.25 mls/hr (unknown) (no (unknown) (unknown) Titration: (units (unk nown) date) 02/07/22 22:00 unknown) Dose: 2 mcg/min, 7.5 mls/hr (unknown) (no (unknown) (unknown) Total Bilirubin (units (unknown) date) (0.2-1.3) mg/dL unknown) (unknown) (no (unknown) (unknown) Total Bilirubin (units (unknown) date) 0.5 (0.2-1.3) mg/dL unknown) (unknown) (no (unknown) (unknown) Total Creatine (units (unknown) date) Kinase (30-135) U/L unknown) (unknown) (no (unknown) (unknown) Total Creatine (units (unknown) date) Kinase 825 H unknown) (30-135) U/L (unknown) (no (unknown) (unknown) Total Critical (units (unknown) date) Care Time: 60 unknown) (unknown) (no (unknown) (unknown) Total Protein (units ( unknown) date) (6.3-8.2) g/dL unknown) (unknown) (no (unknown) (unknown) Total Protein 7.9 (units (unknown) date) (6.3-8.2) g/dL unknown) (unknown) (no (unknown) (unknown) Translating (units (un known) date) services were used unknown) for consent for central line and updating on (unknown) (no (unknown) (unknown) Troponin I < 0.012 (units (unknown) date) (0.01-0.034) ng/mL unknown) (unknown) (no (unknown) (unknown) Troponin I (units (unk nown) date) (0.01-0.034) ng/mL unknown) (unknown) (no (unknown) (unknown) U Benzodiazepines (units (unknown) date) Scrn (Negative) unknown) (unknown) (no (unknown) (unknown) U Benzodiazepines (units (unknown) date) Scrn Negative unknown) (Negative) (unknown) (no (unknown) (unknown) U Marijuana (THC) (units (unknown) date) Screen (Negative) unknown) (unknown) (no (unknown) (unknown) U Marijuana (THC) (units (unknown) date) Screen Negative unknown) (Negative) (unknown) (no (unknown) (unknown) U Methamphetamines (units (unknown) date) Scrn (Negative) unknown) (unknown) (no (unknown) (unknown) U Methamphetamines (units (unknown) date) Scrn Negative unknown) (Negative) (unknown) (no (unknown) (unknown) U Opiates 300ng/mL (units (unknown) date) cut (Negative) unknown) (unknown) (no (unknown) (unknown) U Opiates 300ng/mL (units (unknown) date) cut Negative unknown) (Negative) (unknown) (no (unknown) (unknown) U Tricyclic (units (un known) date) Antidepress unknown) (Negative) (unknown) (no (unknown) (unknown) U Tricyclic (units (un known) date) Antidepress unknown) Negative (Negative) (unknown) (no (unknown) (unknown) Ur Amphetamines (units (unknown) date) Screen (Negative) unknown) (unknown) (no (unknown) (unknown) Ur Amphetamines (units (unknown) date) Screen Negative unknown) (Negative) (unknown) (no (unknown) (unknown) Ur Barbiturates (units (unknown) date) Screen (Negative) unknown) (unknown) (no (unknown) (unknown) Ur Barbiturates (units (unknown) date) Screen Negative unknown) (Negative) (unknown) (no (unknown) (unknown) Ur Culture (units (unk nown) date) Indicated? Cult not unknown) indicated (unknown) (no (unknown) (unknown) Ur Culture (units (unk nown) date) Indicated? unknown) (unknown) (no (unknown) (unknown) Ur MDMA Scrn (units (u nknown) date) (Ecstasy) unknown) (Negative) (unknown) (no (unknown) (unknown) Ur MDMA Scrn (units (u nknown) date) (Ecstasy) Negative unknown) (Negative) (unknown) (no (unknown) (unknown) Ur Oxycodone (units (u nknown) date) Screen (Negative) unknown) (unknown) (no (unknown) (unknown) Ur Oxycodone (units (u nknown) date) Screen Negative unknown) (Negative) (unknown) (no (unknown) (unknown) Ur Phencyclidine (units (unknown) date) Scrn (Negative) unknown) (unknown) (no (unknown) (unknown) Ur Phencyclidine (units (unknown) date) Scrn Negative unknown) (Negative) (unknown) (no (unknown) (unknown) Ur Squamous Epith (units (unknown) date) Cells (0-5/HPF) unknown) (unknown) (no (unknown) (unknown) Ur Squamous Epith (units (unknown) date) Cells 1-5 /hpf unknown) (0-5/HPF) (unknown) (no (unknown) (unknown) Ur Transition (units ( unknown) date) Epith Cell unknown) (0-5/HPF) (unknown) (no (unknown) (unknown) Ur Transition (units ( unknown) date) Epith Cell 0-1/hpf unknown) (0-5/HPF) (unknown) (no (unknown) (unknown) Urine Bacteria (units (unknown) date) (None) unknown) (unknown) (no (unknown) (unknown) Urine Bacteria (units (unknown) date) None seen (None) unknown) (unknown) (no (unknown) (unknown) Urine Cocaine (units ( unknown) date) Screen (Negative) unknown) (unknown) (no (unknown) (unknown) Urine Cocaine (units ( unknown) date) Screen Negative unknown) (Negative) (unknown) (no (unknown) (unknown) Urine Dip (units (unkn own) date) unknown) (unknown) (no (unknown) (unknown) Urine Methadone (units (unknown) date) Screen (Negative) unknown) (unknown) (no (unknown) (unknown) Urine Methadone (units (unknown) date) Screen Negative unknown) (Negative) (unknown) (no (unknown) (unknown) Urine (units (unknown) date) Test (Negative) unknown) (unknown) (no (unknown) (unknown) Urine (units (unknown) date) Test Negative unknown) (Negative) (unknown) (no (unknown) (unknown) Urine RBC (units (unkn own) date) (0-5/HPF) unknown) (unknown) (no (unknown) (unknown) Urine RBC None (units (unknown) date) seen (0-5/HPF) unknown) (unknown) (no (unknown) (unknown) Urine Specific (units (unknown) date) [place] 1.015 unknown) (unknown) (no (unknown) (unknown) Urine WBC (units (unkn own) date) (0-5/HPF) unknown) (unknown) (no (unknown) (unknown) Urine WBC 1-5/hpf (units (unknown) date) (0-5/HPF) unknown) (unknown) (no (unknown) (unknown) Vancomycin HCl (units (unknown) date) (Vancomycin Peak) 1 unknown) request MISC NOW ONE (unknown) (no (unknown) (unknown) Vancomycin HCl (units (unknown) date) (Vancomycin Per unknown) Pharmacy) 1 request MISC NOW ONE (unknown) (no (unknown) (unknown) Vancomycin HCl (units (unknown) date) (Vancomycin Trough) unknown) 1 request MISC NOW ONE (unknown) (no (unknown) (unknown) Vancomycin HCl (units (unknown) date) (Vancomycin) 750 mg unknown) in 150 mls @ 150 mls/hr IV NOW ONE (unknown) (no (unknown) (unknown) Vancomycin HCl (units (unknown) date) (Vancomycin) 750 mg unknown) in 150 mls @ 150 mls/hr IV Q8H [place] (unknown) (no (unknown) (unknown) Vital Signs - 8 hr (units (unknown) date) unknown) (unknown) (no (unknown) (unknown) Vital Signs (units (un known) date) unknown) (unknown) (no (unknown) (unknown) Vital signs: (units (u nknown) date) unknown) (unknown) (no (unknown) (unknown) WBC (4.5-11.0) (units (unknown) date) X103/uL unknown) (unknown) (no (unknown) (unknown) WBC 4.5 (4.5-11.0) (units (unknown) date) X103/uL unknown) (unknown) (no (unknown) (unknown) XRay Report (units (un known) date) unknown) (unknown) (no (unknown) (unknown) [Embedded Image (units (unknown) date) Not Available] unknown) (unknown) (no (unknown) (unknown) [x] Data Review (units (unknown) date) and interpretation unknown) (unknown) (no (unknown) (unknown) [x] Documentation (units (unknown) date) unknown) (unknown) (no (unknown) (unknown) [x] Medication (units (unknown) date) orders and unknown) management (unknown) (no (unknown) (unknown) [x] Patient (units (un known) date) assessment and unknown) monitoring of vital signs (unknown) (no (unknown) (unknown) and below, (units (unk nown) date) Unobtainable due to unknown) medical condition and Unobtainable due to mental (unknown) (no (unknown) (unknown) and her face. [facility] she said she got an IV, (unknown) (no (unknown) (unknown) appear (units (unkno wn) date) unknown) (unknown) (no (unknown) (unknown) at for a short (units (unknown) date) time and now has unknown) been off it. (unknown) (no (unknown) (unknown) attention, (units (unk nown) date) intervention and unknown) personal management. The aggregate critical care (unknown) (no (unknown) (unknown) behavior has (units (u nknown) date) changed some in unknown) regards to she is spitting more. They do not (unknown) (no (unknown) (unknown) blood work and (units (unknown) date) doxepin for the unknown) itching. It was recommended that patient be (unknown) (no (unknown) (unknown) but does have an (units (unknown) date) elevated unknown) procalcitonin. She received sepsis fluids and (unknown) (no (unknown) (unknown) change in (units (unkn own) date) behavior. He is unknown) found to be sepsis with septic shock requiring (unknown) (no (unknown) (unknown) condition (units (unkn own) date) unknown) (unknown) (no (unknown) (unknown) continue to have (units (unknown) date) hypotension unknown) therefore vasopressors were started. (unknown) (no (unknown) (unknown) deterioration of (units (unknown) date) the unknown) [cardiovascular] system(s) required my full and direct (unknown) (no (unknown) (unknown) difficult to tell. (units (unknown) date) They state that her unknown) communication has not changed. She (unknown) (no (unknown) (unknown) etiology (units (unkno wn) date) unknown) (unknown) (no (unknown) (unknown) findings and/or (units (unknown) date) return to baseline unknown) examination. (unknown) (no (unknown) (unknown) guarding or (units (un known) date) rebound. unknown) (unknown) (no (unknown) (unknown) household members: (units (unknown) date) family unknown) (unknown) (no (unknown) (unknown) intact (units (unkno wn) date) unknown) (unknown) (no (unknown) (unknown) inversions (units (unk nown) date) unknown) (unknown) (no (unknown) (unknown) is not eating she (units (unknown) date) continues to drink unknown) some. She started spitting more. Her (unknown) (no (unknown) (unknown) is required (units (un known) date) anesthesia was unknown) called to place central line. She was empirically (unknown) (no (unknown) (unknown) mirtazapine (units (un known) date) AdvReac unknown) Intermediate Rash severe Verified 01/30/22 06:52 (unknown) (no (unknown) (unknown) most likely. (units (u nknown) date) unknown) (unknown) (no (unknown) (unknown) nonspecific and (units (unknown) date) may represent an unknown) infectious or inflammatory process with viral (unknown) (no (unknown) (unknown) olanzapine 15 mg (units (unknown) date) tablet 15 mg PO unknown) BEDTIME #90 tabs 09/23/20 (unknown) (no (unknown) (unknown) over 3 hr (1146 (units (unknown) date) ml) IV NOW ONE unknown) (unknown) (no (unknown) (unknown) patient's (units (unkn own) date) condition. Code unknown) status was also discussed and she is a full code (unknown) (no (unknown) (unknown) placed for (units (unk nown) date) psychiatric unknown) hospitalization but after a long wait parents (unknown) (no (unknown) (unknown) pneumothorax or (units (unknown) date) substantial pleural unknown) effusion. (unknown) (no (unknown) (unknown) poorly controled (units (unknown) date) schizophrenia she unknown) has frequent itching/picking she has (unknown) (no (unknown) (unknown) primary history is (units (unknown) date) taken from mom unknown) using language line. Patient has severe (unknown) (no (unknown) (unknown) procedures but (units (unknown) date) includes the unknown) following: (unknown) (no (unknown) (unknown) reconsidered and (units (unknown) date) wanted to take her unknown) home. She developed a fever last night she (unknown) (no (unknown) (unknown) report worsening (units (unknown) date) hallucinations unknown) although patient really does not seem verbal (unknown) (no (unknown) (unknown) resolution of (units ( unknown) date) unknown) (unknown) (no (unknown) (unknown) right leg not sure (units (unknown) date) she is no longer on unknown) anticoagulation they said she only needed (unknown) (no (unknown) (unknown) scalp. Viral panel (units (unknown) date) is negative no unknown) evidence of UTI or pneumonia. Central line (unknown) (no (unknown) (unknown) scratched her head (units (unknown) date) so often the wounds unknown) on her head are actually getting worse (unknown) (no (unknown) (unknown) scratches (units (unkn own) date) unknown) (unknown) (no (unknown) (unknown) sniffing. She (units ( unknown) date) denies any pain. unknown) Mom reports cough. (unknown) (no (unknown) (unknown) started on (units (unk nown) date) antibiotics Zosyn unknown) and vancomycin. No fever in the ED no leukocytosis (unknown) (no (unknown) (unknown) the right cheek (units (unknown) date) unknown) (unknown) (no (unknown) (unknown) time was 60 (units (un known) date) minutes. This time unknown) is in addition to time spent performing reported (unknown) (no (unknown) (unknown) to the ICU. (units (un known) date) unknown) (unknown) (no (unknown) (unknown) unremarkable.? (units (unknown) date) unknown) (unknown) (no (unknown) (unknown) vasopressors. (units ( unknown) date) Probable infection unknown) is cellulitis from her multiple sores on her Result panel 476 (unknown) (no (unknown) (unknown) (no value) (units (unk nown) date) unknown) (unknown) (no (unknown) (unknown) (past 8 hours): (units (unknown) date) unknown) (unknown) (no (unknown) (unknown) 00:30 02/08/22 (units (unknown) date) unknown) (unknown) (no (unknown) (unknown) 01:00 02/08/22 (units (unknown) date) unknown) (unknown) (no (unknown) (unknown) 01:00 (units (unkno wn) date) unknown) (unknown) (no (unknown) (unknown) 01:30 02/08/22 (units (unknown) date) unknown) (unknown) (no (unknown) (unknown) 01:30 (units (unkno wn) date) unknown) (unknown) (no (unknown) (unknown) 02:00 02/08/22 (units (unknown) date) unknown) (unknown) (no (unknown) (unknown) 02:30 02/08/22 (units (unknown) date) unknown) (unknown) (no (unknown) (unknown) 03:00 02/08/22 (units (unknown) date) unknown) (unknown) (no (unknown) (unknown) 03:00 (units (unkno wn) date) unknown) (unknown) (no (unknown) (unknown) 03:30 02/08/22 (units (unknown) date) unknown) (unknown) (no (unknown) (unknown) 03:30 (units (unkno wn) date) unknown) (unknown) (no (unknown) (unknown) 04:00 02/08/22 (units (unknown) date) unknown) (unknown) (no (unknown) (unknown) 04:30 02/08/22 (units (unknown) date) unknown) (unknown) (no (unknown) (unknown) 05:00 02/08/22 (units (unknown) date) unknown) (unknown) (no (unknown) (unknown) 05:00 (units (unkno wn) date) unknown) (unknown) (no (unknown) (unknown) 05:30 02/08/22 (units (unknown) date) unknown) (unknown) (no (unknown) (unknown) 05:30 (units (unkno wn) date) unknown) (unknown) (no (unknown) (unknown) 06:00 02/08/22 (units (unknown) date) unknown) (unknown) (no (unknown) (unknown) 06:30 02/08/22 (units (unknown) date) unknown) (unknown) (no (unknown) (unknown) 06:30 (units (unkno wn) date) unknown) (unknown) (no (unknown) (unknown) 07:00 02/08/22 (units (unknown) date) unknown) (unknown) (no (unknown) (unknown) 07:00 (units (unkno wn) date) unknown) (unknown) (no (unknown) (unknown) 07:30 02/08/22 (units (unknown) date) unknown) (unknown) (no (unknown) (unknown) 08:00 (units (unkno wn) date) unknown) (unknown) (no (unknown) (unknown) 08:22 08:22 08:22 (units (unknown) date) unknown) (unknown) (no (unknown) (unknown) 08:27 08:27 08:27 (units (unknown) date) unknown) (unknown) (no (unknown) (unknown) 08:27 08:42 09:20 (units (unknown) date) unknown) (unknown) (no (unknown) (unknown) 09:20 09:20 12:00 (units (unknown) date) unknown) (unknown) (no (unknown) (unknown) 02/07/22 02/07/22 (units (unknown) date) 02/07/22 unknown) (unknown) (no (unknown) (unknown) 02/07/22 02/08/22 (units (unknown) date) 02/08/22 unknown) (unknown) (no (unknown) (unknown) 02/07/22] (units (unkn own) date) unknown) (unknown) (no (unknown) (unknown) 02/08/22 02:08 (units (unknown) date) unknown) (unknown) (no (unknown) (unknown) 02/08/22 03:00 (units (unknown) date) unknown) (unknown) (no (unknown) (unknown) 02/08/22 (units (unkno wn) date) unknown) (unknown) (no (unknown) (unknown) 15:39 03:00 03:00 (units (unknown) date) unknown) (unknown) (no (unknown) (unknown) 17:27 (units (unkno wn) date) unknown) (unknown) (no (unknown) (unknown) 8 MCG/MIN (units (unkn own) date) unknown) (unknown) (no (unknown) (unknown) ALT 33 (units (unkno wn) date) unknown) (unknown) (no (unknown) (unknown) ALT (units (unkno wn) date) unknown) (unknown) (no (unknown) (unknown) AST 87 H (units (unkno wn) date) unknown) (unknown) (no (unknown) (unknown) AST (units (unkno wn) date) unknown) (unknown) (no (unknown) (unknown) Adenovirus (PCR) (units (unknown) date) Not detected unknown) (unknown) (no (unknown) (unknown) Adenovirus (PCR) (units (unknown) date) unknown) (unknown) (no (unknown) (unknown) Age/Sex: 31 / F (units (unknown) date) unknown) (unknown) (no (unknown) (unknown) Albumin 3.6 (units (un known) date) unknown) (unknown) (no (unknown) (unknown) Albumin (units (unkno wn) date) unknown) (unknown) (no (unknown) (unknown) Albumin/Globulin (units (unknown) date) Ratio 0.8 L unknown) (unknown) (no (unknown) (unknown) Albumin/Globulin (units (unknown) date) Ratio unknown) (unknown) (no (unknown) (unknown) Alkaline (units (unkno wn) date) Phosphatase 46 unknown) (unknown) (no (unknown) (unknown) Alkaline (units (unkno wn) date) Phosphatase unknown) (unknown) (no (unknown) (unknown) Assessment + Plan (units (unknown) date) unknown) (unknown) (no (unknown) (unknown) Azithromycin 500 (units (unknown) date) mg/ Dextrose 250 unknown) mls @ 250 mls/hr 02/07/22 15:45 02/07/22 (unknown) (no (unknown) (unknown) B. pertussis DNA (units (unknown) date) (PCR) Not detected unknown) (unknown) (no (unknown) (unknown) B. pertussis DNA (units (unknown) date) (PCR) unknown) (unknown) (no (unknown) (unknown) B.parapertussis (units (unknown) date) DNA PCR Not unknown) detected (unknown) (no (unknown) (unknown) B.parapertussis (units (unknown) date) DNA PCR unknown) (unknown) (no (unknown) (unknown) BEDTIME [place] (units (un known) date) unknown) (unknown) (no (unknown) (unknown) BUN 14 (units (unkno wn) date) unknown) (unknown) (no (unknown) (unknown) BUN 8 (units (unkno wn) date) unknown) (unknown) (no (unknown) (unknown) BUN (units (unkno wn) date) unknown) (unknown) (no (unknown) (unknown) BUN/Creatinine (units (unknown) date) Ratio 14.8 unknown) (unknown) (no (unknown) (unknown) BUN/Creatinine (units (unknown) date) Ratio 21.9 unknown) (unknown) (no (unknown) (unknown) BUN/Creatinine (units (unknown) date) Ratio unknown) (unknown) (no (unknown) (unknown) Baso # (Auto) 0 (units (unknown) date) unknown) (unknown) (no (unknown) (unknown) Baso # (Auto) (units ( unknown) date) unknown) (unknown) (no (unknown) (unknown) Baso % (Auto) 0.3 (units (unknown) date) unknown) (unknown) (no (unknown) (unknown) Baso % (Auto) 0.5 (units (unknown) date) unknown) (unknown) (no (unknown) (unknown) Baso % (Auto) (units ( unknown) date) unknown) (unknown) (no (unknown) (unknown) Blood Pressure (units (unknown) date) 101/67 104/62 unknown) (unknown) (no (unknown) (unknown) Blood Pressure (units (unknown) date) 105/63 unknown) (unknown) (no (unknown) (unknown) Blood Pressure (units (unknown) date) 82/53 L unknown) (unknown) (no (unknown) (unknown) Blood Pressure (units (unknown) date) 88/57 L 99/61 unknown) (unknown) (no (unknown) (unknown) Blood Pressure (units (unknown) date) 89/57 L 99/60 unknown) (unknown) (no (unknown) (unknown) Blood Pressure (units (unknown) date) 96/60 89/58 L unknown) (unknown) (no (unknown) (unknown) Blood Pressure (units (unknown) date) 97/62 unknown) (unknown) (no (unknown) (unknown) Blood Pressure (units (unknown) date) 98/60 98/60 unknown) (unknown) (no (unknown) (unknown) Blood Pressure (units (unknown) date) 98/60 99/61 unknown) (unknown) (no (unknown) (unknown) Blood Pressure (units (unknown) date) 98/60 99/62 unknown) (unknown) (no (unknown) (unknown) Blood Pressure (units (unknown) date) 98/61 unknown) (unknown) (no (unknown) (unknown) Blood Pressure (units (unknown) date) unknown) (unknown) (no (unknown) (unknown) CK-MB (CK-2) 2.02 (units (unknown) date) unknown) (unknown) (no (unknown) (unknown) CK-MB (CK-2) Rel (units (unknown) date) Index 0.2 L unknown) (unknown) (no (unknown) (unknown) CK-MB (CK-2) Rel (units (unknown) date) Index unknown) (unknown) (no (unknown) (unknown) CK-MB (CK-2) (units (u nknown) date) unknown) (unknown) (no (unknown) (unknown) Calcium 6.6 L (units ( unknown) date) unknown) (unknown) (no (unknown) (unknown) Calcium 8.3 L (units ( unknown) date) unknown) (unknown) (no (unknown) (unknown) Calcium (units (unkno wn) date) unknown) (unknown) (no (unknown) (unknown) Carbon Dioxide 23 (units (unknown) date) unknown) (unknown) (no (unknown) (unknown) Carbon Dioxide (units (unknown) date) unknown) (unknown) (no (unknown) (unknown) Chlamy pneumoniae (units (unknown) date) PCR Not detected unknown) (unknown) (no (unknown) (unknown) Chlamy pneumoniae (units (unknown) date) PCR unknown) (unknown) (no (unknown) (unknown) Chloride 107 (units (u nknown) date) unknown) (unknown) (no (unknown) (unknown) Chloride 99 (units (un known) date) unknown) (unknown) (no (unknown) (unknown) Chloride (units (unkno wn) date) unknown) (unknown) (no (unknown) (unknown) Consent obtained (units (unknown) date) for unknown) tele-anesthesia assistant care: Yes (unknown) (no (unknown) (unknown) Coronavirus 229E (units (unknown) date) (PCR) Not detected unknown) (unknown) (no (unknown) (unknown) Coronavirus 229E (units (unknown) date) (PCR) unknown) (unknown) (no (unknown) (unknown) Coronavirus HKU1 (units (unknown) date) (PCR) Not detected unknown) (unknown) (no (unknown) (unknown) Coronavirus HKU1 (units (unknown) date) (PCR) unknown) (unknown) (no (unknown) (unknown) Coronavirus NL63 (units (unknown) date) (PCR) Not detected unknown) (unknown) (no (unknown) (unknown) Coronavirus NL63 (units (unknown) date) (PCR) unknown) (unknown) (no (unknown) (unknown) Coronavirus OC43 (units (unknown) date) (PCR) Not detected unknown) (unknown) (no (unknown) (unknown) Coronavirus OC43 (units (unknown) date) (PCR) unknown) (unknown) (no (unknown) (unknown) Creatinine 0.54 (units (unknown) date) unknown) (unknown) (no (unknown) (unknown) Creatinine 0.64 (units (unknown) date) unknown) (unknown) (no (unknown) (unknown) Creatinine (units (unk nown) date) unknown) (unknown) (no (unknown) (unknown) Critical Care (units ( unknown) date) time: unknown) (unknown) (no (unknown) (unknown) Current (units (unkno wn) date) Medications unknown) (unknown) (no (unknown) (unknown) D-Dimer 2351 H (units (unknown) date) unknown) (unknown) (no (unknown) (unknown) D-Dimer (units (unkno wn) date) unknown) (unknown) (no (unknown) (unknown) : 1990 (units (unknown) date) Acct:[id number] unknown) (unknown) (no (unknown) (unknown) Date of Service: (units (unknown) date) 02/07/22 unknown) (unknown) (no (unknown) (unknown) Deep Vein (units (unkn own) date) Thrombosis/Pulmonar unknown) y Embolism Present on Admission: No (unknown) (no (unknown) (unknown) Diphenhydramine 50 (units (unknown) date) Mg/Ml Vial IV 25 mg unknown) (unknown) (no (unknown) (unknown) Diphenhydramine (units (unknown) date) HCl 25 mg 02/07/22 unknown) 22:50 02/08/22 05:27 (unknown) (no (unknown) (unknown) Entero/Rhino (PCR) (units (unknown) date) Not detected unknown) (unknown) (no (unknown) (unknown) Entero/Rhino (PCR) (units (unknown) date) unknown) (unknown) (no (unknown) (unknown) Eos # (Auto) 0 (units (unknown) date) unknown) (unknown) (no (unknown) (unknown) Eos # (Auto) (units (u nknown) date) unknown) (unknown) (no (unknown) (unknown) Eos % (Auto) 0.0 L (units (unknown) date) unknown) (unknown) (no (unknown) (unknown) Eos % (Auto) (units (u nknown) date) unknown) (unknown) (no (unknown) (unknown) Estimated GFR > 60 (units (unknown) date) unknown) (unknown) (no (unknown) (unknown) Estimated GFR (units ( unknown) date) unknown) (unknown) (no (unknown) (unknown) Exam (units (unkno wn) date) unknown) (unknown) (no (unknown) (unknown) Generic Name Dose (units (unknown) date) Route Start Last unknown) Admin (unknown) (no (unknown) (unknown) Globulin 4.3 H (units (unknown) date) unknown) (unknown) (no (unknown) (unknown) Globulin (units (unkno wn) date) unknown) (unknown) (no (unknown) (unknown) Glucose 113 H (units ( unknown) date) unknown) (unknown) (no (unknown) (unknown) Glucose 64 L (units (u nknown) date) unknown) (unknown) (no (unknown) (unknown) Glucose (units (unkno wn) date) unknown) (unknown) (no (unknown) (unknown) Hct 28.0 L (units (unk nown) date) unknown) (unknown) (no (unknown) (unknown) Hct 32.5 L (units (unk nown) date) unknown) (unknown) (no (unknown) (unknown) Hct (units (unkno wn) date) unknown) (unknown) (no (unknown) (unknown) Hgb 10.9 L (units (unk nown) date) unknown) (unknown) (no (unknown) (unknown) Hgb 9.3 L (units (unkn own) date) unknown) (unknown) (no (unknown) (unknown) Hgb (units (unkno wn) date) unknown) (unknown) (no (unknown) (unknown) Home Medications (units (unknown) date) unknown) (unknown) (no (unknown) (unknown) Human (units (unkno wn) date) Metapneumovir PCR unknown) Not detected (unknown) (no (unknown) (unknown) Human (units (unkno wn) date) Metapneumovir PCR unknown) (unknown) (no (unknown) (unknown) I spent a total of (units (unknown) date) [] minutes of unknown) critical care time on this patient's care (unknown) (no (unknown) (unknown) IF CAMERA (units (unkn own) date) ACTIVATED, patient unknown) seen via real-time interactive audiovisual (unknown) (no (unknown) (unknown) IV Infused (units (unk nown) date) unknown) (unknown) (no (unknown) (unknown) Influenza A (units (un known) date) (RT-PCR) Flu a unknown) negative (unknown) (no (unknown) (unknown) Influenza A (units (un known) date) (RT-PCR) unknown) (unknown) (no (unknown) (unknown) Influenza B (units (un known) date) (RT-PCR) Flu b unknown) negative (unknown) (no (unknown) (unknown) Influenza B (units (un known) date) (RT-PCR) unknown) (unknown) (no (unknown) (unknown) Influenza Type A (units (unknown) date) (PCR) Not detected unknown) (unknown) (no (unknown) (unknown) Influenza Type A (units (unknown) date) (PCR) unknown) (unknown) (no (unknown) (unknown) Influenza Type B (units (unknown) date) (PCR) Not detected unknown) (unknown) (no (unknown) (unknown) Influenza Type B (units (unknown) date) (PCR) unknown) (unknown) (no (unknown) (unknown) Interval history: (units (unknown) date) unknown) (unknown) (no (unknown) (unknown) [facility] (units (unknown) date) [address] unknown) [place] [address] (unknown) (no (unknown) (unknown) Itching (units (unkno wn) date) unknown) (unknown) (no (unknown) (unknown) Laboratory Results (units (unknown) date) - last 24 hr unknown) (unknown) (no (unknown) (unknown) Labs (units (unkno wn) date) unknown) (unknown) (no (unknown) (unknown) Labs: (units (unkno wn) date) unknown) (unknown) (no (unknown) (unknown) Lactate 1.6 (units (un known) date) unknown) (unknown) (no (unknown) (unknown) Lactate (units (unkno wn) date) unknown) (unknown) (no (unknown) (unknown) Levophed IV 0 (units ( unknown) date) mcg/min unknown) (unknown) (no (unknown) (unknown) Lymph # (Auto) (units (unknown) date) 1000 L unknown) (unknown) (no (unknown) (unknown) Lymph # (Auto) 900 (units (unknown) date) L unknown) (unknown) (no (unknown) (unknown) Lymph # (Auto) (units (unknown) date) unknown) (unknown) (no (unknown) (unknown) Lymph % (Auto) (units (unknown) date) 20.7 L unknown) (unknown) (no (unknown) (unknown) Lymph % (Auto) (units (unknown) date) 21.3 L unknown) (unknown) (no (unknown) (unknown) Lymph % (Auto) (units (unknown) date) unknown) (unknown) (no (unknown) (unknown) M. pneumoniae (units ( unknown) date) (PCR) Not detected unknown) (unknown) (no (unknown) (unknown) M. pneumoniae (units ( unknown) date) (PCR) unknown) (unknown) (no (unknown) (unknown) [id number] (units (unk nown) date) unknown) (unknown) (no (unknown) (unknown) MCH 28.7 (units (unkno wn) date) unknown) (unknown) (no (unknown) (unknown) MCH 29.0 (units (unkno wn) date) unknown) (unknown) (no (unknown) (unknown) MCH (units (unkno wn) date) unknown) (unknown) (no (unknown) (unknown) MCHC 33.3 (units (unkn own) date) unknown) (unknown) (no (unknown) (unknown) MCHC 33.5 (units (unkn own) date) unknown) (unknown) (no (unknown) (unknown) MCHC (units (unkno wn) date) unknown) (unknown) (no (unknown) (unknown) MCV 85.7 (units (unkno wn) date) unknown) (unknown) (no (unknown) (unknown) MCV 87.1 (units (unkno wn) date) unknown) (unknown) (no (unknown) (unknown) MCV (units (unkno wn) date) unknown) (unknown) (no (unknown) (unknown) Magnesium 2.1 (units ( unknown) date) unknown) (unknown) (no (unknown) (unknown) Magnesium (units (unkn own) date) unknown) (unknown) (no (unknown) (unknown) Medications: (units (u nknown) date) unknown) (unknown) (no (unknown) (unknown) Butts # (Auto) 300 (units (unknown) date) unknown) (unknown) (no (unknown) (unknown) Butts # (Auto) 500 (units (unknown) date) unknown) (unknown) (no (unknown) (unknown) Butts # (Auto) (units ( unknown) date) unknown) (unknown) (no (unknown) (unknown) Butts % (Auto) 10.1 (units (unknown) date) unknown) (unknown) (no (unknown) (unknown) Butts % (Auto) 7.2 (units (unknown) date) unknown) (unknown) (no (unknown) (unknown) Butts % (Auto) (units ( unknown) date) unknown) (unknown) (no (unknown) (unknown) NOREPINEPHRINE (units (unknown) date) BITARTRATE/D5W 4 mg unknown) in 250 mls @ 30 mls/hr 02/07/22 12:34 (unknown) (no (unknown) (unknown) Nasal Screen MRSA (units (unknown) date) (PCR) Negative for unknown) mrsa (unknown) (no (unknown) (unknown) Nasal Screen MRSA (units (unknown) date) (PCR) unknown) (unknown) (no (unknown) (unknown) Neut # (Auto) 3100 (units (unknown) date) unknown) (unknown) (no (unknown) (unknown) Neut # (Auto) 3400 (units (unknown) date) unknown) (unknown) (no (unknown) (unknown) Neut # (Auto) (units ( unknown) date) unknown) (unknown) (no (unknown) (unknown) Neut % (Auto) 68.7 (units (unknown) date) unknown) (unknown) (no (unknown) (unknown) Neut % (Auto) 71.2 (units (unknown) date) unknown) (unknown) (no (unknown) (unknown) Neut % (Auto) (units ( unknown) date) unknown) (unknown) (no (unknown) (unknown) Objective (units (unkn own) date) unknown) (unknown) (no (unknown) (unknown) Olanzapine 20 mg (units (unknown) date) 02/07/22 21:00 unknown) 02/07/22 21:50 (unknown) (no (unknown) (unknown) Olanzapine Odt 10 (units (unknown) date) Mg Tab PO Not Given unknown) (unknown) (no (unknown) (unknown) Other (units (unkno wn) date) participants/roles: unknown) RN, hospitalist (unknown) (no (unknown) (unknown) Oxygen Delivery (units (unknown) date) Method Room Air unknown) (unknown) (no (unknown) (unknown) Oxygen Flow Rate 0 (units (unknown) date) unknown) (unknown) (no (unknown) (unknown) Oxygen Flow Rate (units (unknown) date) unknown) (unknown) (no (unknown) (unknown) Parainfluenza 1 (units (unknown) date) (PCR) Not detected unknown) (unknown) (no (unknown) (unknown) Parainfluenza 1 (units (unknown) date) (PCR) unknown) (unknown) (no (unknown) (unknown) Parainfluenza 2 (units (unknown) date) (PCR) Not detected unknown) (unknown) (no (unknown) (unknown) Parainfluenza 2 (units (unknown) date) (PCR) unknown) (unknown) (no (unknown) (unknown) Parainfluenza 3 (units (unknown) date) (PCR) Not detected unknown) (unknown) (no (unknown) (unknown) Parainfluenza 3 (units (unknown) date) (PCR) unknown) (unknown) (no (unknown) (unknown) Parainfluenza 4 (units (unknown) date) (PCR) Not detected unknown) (unknown) (no (unknown) (unknown) Parainfluenza 4 (units (unknown) date) (PCR) unknown) (unknown) (no (unknown) (unknown) Patient Location: (units (unknown) date) ICU unknown) (unknown) (no (unknown) (unknown) Patient Summary: 31 (units (unknown) date) yo W with PMH of unknown) Schizophrenia (non-verbal), PE (prevniously (unknown) (no (unknown) (unknown) Patient: (units (unkno wn) date) [place] B unknown) MR#: (unknown) (no (unknown) (unknown) Piperacillin (units (u nknown) date) Sod/Tazobactam 100 unknown) mls @ 25 mls/hr 02/07/22 21:00 02/08/22 04:46 (unknown) (no (unknown) (unknown) Plt Count 115 L (units (unknown) date) unknown) (unknown) (no (unknown) (unknown) Plt Count 155 (units ( unknown) date) unknown) (unknown) (no (unknown) (unknown) Plt Count (units (unkn own) date) unknown) (unknown) (no (unknown) (unknown) Potassium 3.0 L (units (unknown) date) unknown) (unknown) (no (unknown) (unknown) Potassium 3.6 (units ( unknown) date) unknown) (unknown) (no (unknown) (unknown) Potassium (units (unkn own) date) unknown) (unknown) (no (unknown) (unknown) Procalcitonin 0.87 (units (unknown) date) H unknown) (unknown) (no (unknown) (unknown) Procalcitonin 1.08 (units (unknown) date) H unknown) (unknown) (no (unknown) (unknown) Procalcitonin (units ( unknown) date) unknown) (unknown) (no (unknown) (unknown) Prolactin 33.7 H (units (unknown) date) unknown) (unknown) (no (unknown) (unknown) Prolactin (units (unkn own) date) unknown) (unknown) (no (unknown) (unknown) Protocol (units (unkno wn) date) unknown) (unknown) (no (unknown) (unknown) Provider location (units (unknown) date) (State): [place] unknown) (unknown) (no (unknown) (unknown) Provider: Alexander Cuevas (units (unknown) date) Radha MEYERS unknown) (unknown) (no (unknown) (unknown) Pulse Oximetry 100 (units (unknown) date) 90 L unknown) (unknown) (no (unknown) (unknown) Pulse Oximetry 100 (units (unknown) date) 99 unknown) (unknown) (no (unknown) (unknown) Pulse Oximetry 100 (units (unknown) date) unknown) (unknown) (no (unknown) (unknown) Pulse Oximetry 82 (units (unknown) date) L unknown) (unknown) (no (unknown) (unknown) Pulse Oximetry 92 (units (unknown) date) unknown) (unknown) (no (unknown) (unknown) Pulse Oximetry 97 (units (unknown) date) 99 unknown) (unknown) (no (unknown) (unknown) Pulse Oximetry 98 (units (unknown) date) unknown) (unknown) (no (unknown) (unknown) Pulse Oximetry 99 (units (unknown) date) 98 unknown) (unknown) (no (unknown) (unknown) Pulse Oximetry 99 (units (unknown) date) 99 unknown) (unknown) (no (unknown) (unknown) Pulse Oximetry 99 (units (unknown) date) unknown) (unknown) (no (unknown) (unknown) Pulse Oximetry (units (unknown) date) unknown) (unknown) (no (unknown) (unknown) Pulse Rate 106 H (units (unknown) date) unknown) (unknown) (no (unknown) (unknown) Pulse Rate 80 78 (units (unknown) date) unknown) (unknown) (no (unknown) (unknown) Pulse Rate 81 (units ( unknown) date) unknown) (unknown) (no (unknown) (unknown) Pulse Rate 86 (units ( unknown) date) unknown) (unknown) (no (unknown) (unknown) Pulse Rate 87 (units ( unknown) date) unknown) (unknown) (no (unknown) (unknown) Pulse Rate 88 96 H (units (unknown) date) unknown) (unknown) (no (unknown) (unknown) Pulse Rate 89 93 H (units (unknown) date) unknown) (unknown) (no (unknown) (unknown) Pulse Rate 92 H (units (unknown) date) unknown) (unknown) (no (unknown) (unknown) Pulse Rate 95 H 79 (units (unknown) date) unknown) (unknown) (no (unknown) (unknown) Pulse Rate 97 H 86 (units (unknown) date) unknown) (unknown) (no (unknown) (unknown) Q24H [place] Infusion (units (unknown) date) unknown) (unknown) (no (unknown) (unknown) Q4HR PRN (units (unkno wn) date) Administration unknown) (unknown) (no (unknown) (unknown) Q8H [place] (units (unkno wn) date) Administration unknown) (unknown) (no (unknown) (unknown) Q8H [place] Infusion (units (unknown) date) unknown) (unknown) (no (unknown) (unknown) Quality TeleICU (units (unknown) date) unknown) (unknown) (no (unknown) (unknown) RBC 3.22 L (units (unk nown) date) unknown) (unknown) (no (unknown) (unknown) RBC 3.79 L (units (unk nown) date) unknown) (unknown) (no (unknown) (unknown) RBC (units (unkno wn) date) unknown) (unknown) (no (unknown) (unknown) RDW 14.1 (units (unkno wn) date) unknown) (unknown) (no (unknown) (unknown) RDW 14.7 (units (unkno wn) date) unknown) (unknown) (no (unknown) (unknown) RDW (units (unkno wn) date) unknown) (unknown) (no (unknown) (unknown) RSV (PCR) Negative (units (unknown) date) unknown) (unknown) (no (unknown) (unknown) RSV (PCR) Not (units ( unknown) date) detected unknown) (unknown) (no (unknown) (unknown) RSV (PCR) (units (unkn own) date) unknown) (unknown) (no (unknown) (unknown) Respiratory Rate (units (unknown) date) 24 unknown) (unknown) (no (unknown) (unknown) Respiratory Rate (units (unknown) date) 25 H 20 unknown) (unknown) (no (unknown) (unknown) Respiratory Rate (units (unknown) date) 29 H unknown) (unknown) (no (unknown) (unknown) Respiratory Rate (units (unknown) date) 34 H 34 H unknown) (unknown) (no (unknown) (unknown) Respiratory Rate (units (unknown) date) 36 H unknown) (unknown) (no (unknown) (unknown) Respiratory Rate (units (unknown) date) 38 H unknown) (unknown) (no (unknown) (unknown) Respiratory Rate (units (unknown) date) 39 H 44 H unknown) (unknown) (no (unknown) (unknown) Respiratory Rate (units (unknown) date) 40 H 19 unknown) (unknown) (no (unknown) (unknown) Respiratory Rate (units (unknown) date) 41 H unknown) (unknown) (no (unknown) (unknown) Respiratory Rate (units (unknown) date) 42 H unknown) (unknown) (no (unknown) (unknown) Respiratory Rate (units (unknown) date) 43 H 36 H unknown) (unknown) (no (unknown) (unknown) Respiratory Rate (units (unknown) date) 43 H unknown) (unknown) (no (unknown) (unknown) Result Diagrams: (units (unknown) date) unknown) (unknown) (no (unknown) (unknown) SARS-CoV-2 (PCR) (units (unknown) date) Negative unknown) (unknown) (no (unknown) (unknown) SARS-CoV-2 (PCR) (units (unknown) date) Not detected unknown) (unknown) (no (unknown) (unknown) SARS-CoV-2 (PCR) (units (unknown) date) unknown) (unknown) (no (unknown) (unknown) Signed By: (units (unk nown) date) unknown) (unknown) (no (unknown) (unknown) Sod 3.375 gm/ (units ( unknown) date) Sodium Chloride IV unknown) 25 mls/hr (unknown) (no (unknown) (unknown) Sodium 134 L (units (u nknown) date) unknown) (unknown) (no (unknown) (unknown) Sodium 137 (units (unk nown) date) unknown) (unknown) (no (unknown) (unknown) Sodium (units (unkno wn) date) unknown) (unknown) (no (unknown) (unknown) Subjective (units (unk nown) date) unknown) (unknown) (no (unknown) (unknown) TITRATE [place] 0 (units ( unknown) date) mls/hr unknown) (unknown) (no (unknown) (unknown) 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 (units (unknown) date) Progress Note unknown) (unknown) (no (unknown) (unknown) Temperature 100.0 (units (unknown) date) F H unknown) (unknown) (no (unknown) (unknown) Temperature 100.2 (units (unknown) date) F H unknown) (unknown) (no (unknown) (unknown) Temperature 96.6 F (units (unknown) date) L 98.1 F unknown) (unknown) (no (unknown) (unknown) Temperature 98.1 F (units (unknown) date) 99.1 F unknown) (unknown) (no (unknown) (unknown) Temperature 98.2 F (units (unknown) date) 98.4 F unknown) (unknown) (no (unknown) (unknown) Temperature 98.4 F (units (unknown) date) 98.2 F unknown) (unknown) (no (unknown) (unknown) Temperature 98.4 F (units (unknown) date) 98.4 F unknown) (unknown) (no (unknown) (unknown) Temperature 98.6 F (units (unknown) date) 98.1 F 98.6 F unknown) (unknown) (no (unknown) (unknown) Temperature 98.6 F (units (unknown) date) 98.4 F unknown) (unknown) (no (unknown) (unknown) Temperature 98.6 F (units (unknown) date) 99.0 F unknown) (unknown) (no (unknown) (unknown) Temperature 98.8 F (units (unknown) date) unknown) (unknown) (no (unknown) (unknown) Temperature 99.5 F (units (unknown) date) 99.7 F H unknown) (unknown) (no (unknown) (unknown) Time Spent With (units (unknown) date) Patient unknown) (unknown) (no (unknown) (unknown) Titration (units (unkn own) date) unknown) (unknown) (no (unknown) (unknown) Total Bilirubin (units (unknown) date) 0.5 unknown) (unknown) (no (unknown) (unknown) Total Bilirubin (units (unknown) date) unknown) (unknown) (no (unknown) (unknown) Total Creatine (units (unknown) date) Kinase 825 H unknown) (unknown) (no (unknown) (unknown) Total Creatine (units (unknown) date) Kinase unknown) (unknown) (no (unknown) (unknown) Total Protein 7.9 (units (unknown) date) unknown) (unknown) (no (unknown) (unknown) Total Protein (units ( unknown) date) unknown) (unknown) (no (unknown) (unknown) Trade Name Freq (units (unknown) date) PRN Reason Stop unknown) Dose Admin (unknown) (no (unknown) (unknown) Troponin I < 0.012 (units (unknown) date) unknown) (unknown) (no (unknown) (unknown) Troponin I (units (unk nown) date) unknown) (unknown) (no (unknown) (unknown) U Benzodiazepines (units (unknown) date) Scrn Negative unknown) (unknown) (no (unknown) (unknown) U Benzodiazepines (units (unknown) date) Scrn unknown) (unknown) (no (unknown) (unknown) U Marijuana (THC) (units (unknown) date) Screen Negative unknown) (unknown) (no (unknown) (unknown) U Marijuana (THC) (units (unknown) date) Screen unknown) (unknown) (no (unknown) (unknown) U Methamphetamines (units (unknown) date) Scrn Negative unknown) (unknown) (no (unknown) (unknown) U Methamphetamines (units (unknown) date) Scrn unknown) (unknown) (no (unknown) (unknown) U Opiates 300ng/mL (units (unknown) date) cut Negative unknown) (unknown) (no (unknown) (unknown) U Opiates 300ng/mL (units (unknown) date) cut unknown) (unknown) (no (unknown) (unknown) U Tricyclic (units (un known) date) Antidepress unknown) Negative (unknown) (no (unknown) (unknown) U Tricyclic (units (un known) date) Antidepress unknown) (unknown) (no (unknown) (unknown) Ur Amphetamines (units (unknown) date) Screen Negative unknown) (unknown) (no (unknown) (unknown) Ur Amphetamines (units (unknown) date) Screen unknown) (unknown) (no (unknown) (unknown) Ur Barbiturates (units (unknown) date) Screen Negative unknown) (unknown) (no (unknown) (unknown) Ur Barbiturates (units (unknown) date) Screen unknown) (unknown) (no (unknown) (unknown) Ur Culture (units (unk nown) date) Indicated? Cult not unknown) indicated (unknown) (no (unknown) (unknown) Ur Culture (units (unk nown) date) Indicated? unknown) (unknown) (no (unknown) (unknown) Ur MDMA Scrn (units (u nknown) date) (Ecstasy) Negative unknown) (unknown) (no (unknown) (unknown) Ur MDMA Scrn (units (u nknown) date) (Ecstasy) unknown) (unknown) (no (unknown) (unknown) Ur Oxycodone (units (u nknown) date) Screen Negative unknown) (unknown) (no (unknown) (unknown) Ur Oxycodone (units (u nknown) date) Screen unknown) (unknown) (no (unknown) (unknown) Ur Phencyclidine (units (unknown) date) Scrn Negative unknown) (unknown) (no (unknown) (unknown) Ur Phencyclidine (units (unknown) date) Scrn unknown) (unknown) (no (unknown) (unknown) Ur Squamous Epith (units (unknown) date) Cells 1-5 /hpf unknown) (unknown) (no (unknown) (unknown) Ur Squamous Epith (units (unknown) date) Cells unknown) (unknown) (no (unknown) (unknown) Ur Transition (units ( unknown) date) Epith Cell 0-1/hpf unknown) (unknown) (no (unknown) (unknown) Ur Transition (units ( unknown) date) Epith Cell unknown) (unknown) (no (unknown) (unknown) Urine Bacteria (units (unknown) date) None seen unknown) (unknown) (no (unknown) (unknown) Urine Bacteria (units (unknown) date) unknown) (unknown) (no (unknown) (unknown) Urine Cocaine (units ( unknown) date) Screen Negative unknown) (unknown) (no (unknown) (unknown) Urine Cocaine (units ( unknown) date) Screen unknown) (unknown) (no (unknown) (unknown) Urine Methadone (units (unknown) date) Screen Negative unknown) (unknown) (no (unknown) (unknown) Urine Methadone (units (unknown) date) Screen unknown) (unknown) (no (unknown) (unknown) Urine (units (unknown) date) Test Negative unknown) (unknown) (no (unknown) (unknown) Urine (units (unknown) date) Test unknown) (unknown) (no (unknown) (unknown) Urine RBC None (units (unknown) date) seen unknown) (unknown) (no (unknown) (unknown) Urine RBC (units (unkn own) date) unknown) (unknown) (no (unknown) (unknown) Urine WBC 1-5/hpf (units (unknown) date) unknown) (unknown) (no (unknown) (unknown) Urine WBC (units (unkn own) date) unknown) (unknown) (no (unknown) (unknown) VTE (units (unkno wn) date) unknown) (unknown) (no (unknown) (unknown) Vancomycin HCl 750 (units (unknown) date) mg in 150 mls @ 150 unknown) mls/hr 02/07/22 18:00 02/08/22 03:04 (unknown) (no (unknown) (unknown) Vancomycin IV (units ( unknown) date) Infused unknown) (unknown) (no (unknown) (unknown) Visit Medications (units (unknown) date) (administered) unknown) (unknown) (no (unknown) (unknown) Vital Signs (units (un known) date) unknown) (unknown) (no (unknown) (unknown) WBC 4.5 (units (unkno wn) date) unknown) (unknown) (no (unknown) (unknown) WBC 4.7 (units (unkno wn) date) unknown) (unknown) (no (unknown) (unknown) WBC (units (unkno wn) date) unknown) (unknown) (no (unknown) (unknown) [Embedded Image (units (unknown) date) Not Available] unknown) (unknown) (no (unknown) (unknown) antibiotics and (units (unknown) date) Levophed drip. 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 (unknown) (no (unknown) (unknown) communication: (units (unknown) date) Camera activated unknown) (unknown) (no (unknown) (unknown) olanzapine 15 mg (units (unknown) date) tablet 15 mg PO unknown) BEDTIME #90 tabs 09/23/20 [Rx Confirmed (unknown) (no (unknown) (unknown) on AC many years (units (unknown) date) ago, s/p IVC unknown) filter, unclear if removed) was admitted 02/07/22 (unknown) (no (unknown) (unknown) today; this time (units (unknown) date) is exclusive of unknown) procedural time. (unknown) (no (unknown) (unknown) with septic shock (units (unknown) date) from skin infection unknown) (from picking?). Pt. placed on Result panel 477 (unknown) (no (unknown) (unknown) (no value) (units (unk nown) date) unknown) (unknown) (no (unknown) (unknown) (past 8 hours): (units (unknown) date) unknown) (unknown) (no (unknown) (unknown) -Continue Zosyn (units (unknown) date) and Vancomycin unknown) (unknown) (no (unknown) (unknown) -since no evidence (units (unknown) date) of PNA will d/c unknown) azithromycin (unknown) (no (unknown) (unknown) 00:30 02/08/22 (units (unknown) date) unknown) (unknown) (no (unknown) (unknown) 01:00 02/08/22 (units (unknown) date) unknown) (unknown) (no (unknown) (unknown) 01:00 (units (unkno wn) date) unknown) (unknown) (no (unknown) (unknown) 01:30 02/08/22 (units (unknown) date) unknown) (unknown) (no (unknown) (unknown) 01:30 (units (unkno wn) date) unknown) (unknown) (no (unknown) (unknown) 02:00 02/08/22 (units (unknown) date) unknown) (unknown) (no (unknown) (unknown) 02:30 02/08/22 (units (unknown) date) unknown) (unknown) (no (unknown) (unknown) 03:00 02/08/22 (units (unknown) date) unknown) (unknown) (no (unknown) (unknown) 03:00 (units (unkno wn) date) unknown) (unknown) (no (unknown) (unknown) 03:30 02/08/22 (units (unknown) date) unknown) (unknown) (no (unknown) (unknown) 03:30 (units (unkno wn) date) unknown) (unknown) (no (unknown) (unknown) 04:00 02/08/22 (units (unknown) date) unknown) (unknown) (no (unknown) (unknown) 04:30 02/08/22 (units (unknown) date) unknown) (unknown) (no (unknown) (unknown) 05:00 02/08/22 (units (unknown) date) unknown) (unknown) (no (unknown) (unknown) 05:00 (units (unkno wn) date) unknown) (unknown) (no (unknown) (unknown) 05:30 02/08/22 (units (unknown) date) unknown) (unknown) (no (unknown) (unknown) 05:30 (units (unkno wn) date) unknown) (unknown) (no (unknown) (unknown) 06:00 02/08/22 (units (unknown) date) unknown) (unknown) (no (unknown) (unknown) 06:30 02/08/22 (units (unknown) date) unknown) (unknown) (no (unknown) (unknown) 06:30 (units (unkno wn) date) unknown) (unknown) (no (unknown) (unknown) 07:00 02/08/22 (units (unknown) date) unknown) (unknown) (no (unknown) (unknown) 07:00 (units (unkno wn) date) unknown) (unknown) (no (unknown) (unknown) 07:30 02/08/22 (units (unknown) date) unknown) (unknown) (no (unknown) (unknown) 08:00 (units (unkno wn) date) unknown) (unknown) (no (unknown) (unknown) 08:22 08:22 08:22 (units (unknown) date) unknown) (unknown) (no (unknown) (unknown) 08:27 08:27 08:27 (units (unknown) date) unknown) (unknown) (no (unknown) (unknown) 08:27 08:42 09:20 (units (unknown) date) unknown) (unknown) (no (unknown) (unknown) 09:20 09:20 12:00 (units (unknown) date) unknown) (unknown) (no (unknown) (unknown) 02/07/22 02/07/22 (units (unknown) date) 02/07/22 unknown) (unknown) (no (unknown) (unknown) 02/07/22 02/08/22 (units (unknown) date) 02/08/22 unknown) (unknown) (no (unknown) (unknown) 02/07/22] (units (unkn own) date) unknown) (unknown) (no (unknown) (unknown) 02/08/22 02:08 (units (unknown) date) unknown) (unknown) (no (unknown) (unknown) 02/08/22 03:00 (units (unknown) date) unknown) (unknown) (no (unknown) (unknown) 02/08/22 (units (unkno wn) date) unknown) (unknown) (no (unknown) (unknown) 15:39 03:00 03:00 (units (unknown) date) unknown) (unknown) (no (unknown) (unknown) 17:27 (units (unkno wn) date) unknown) (unknown) (no (unknown) (unknown) 8 MCG/MIN (units (unkn own) date) unknown) (unknown) (no (unknown) (unknown) ALT 33 (units (unkno wn) date) unknown) (unknown) (no (unknown) (unknown) ALT (units (unkno wn) date) unknown) (unknown) (no (unknown) (unknown) AST 87 H (units (unkno wn) date) unknown) (unknown) (no (unknown) (unknown) AST (units (unkno wn) date) unknown) (unknown) (no (unknown) (unknown) Adenovirus (PCR) (units (unknown) date) Not detected unknown) (unknown) (no (unknown) (unknown) Adenovirus (PCR) (units (unknown) date) unknown) (unknown) (no (unknown) (unknown) Age/Sex: 31 / F (units (unknown) date) unknown) (unknown) (no (unknown) (unknown) Albumin 3.6 (units (un known) date) unknown) (unknown) (no (unknown) (unknown) Albumin (units (unkno wn) date) unknown) (unknown) (no (unknown) (unknown) Albumin/Globulin (units (unknown) date) Ratio 0.8 L unknown) (unknown) (no (unknown) (unknown) Albumin/Globulin (units (unknown) date) Ratio unknown) (unknown) (no (unknown) (unknown) Alkaline (units (unkno wn) date) Phosphatase 46 unknown) (unknown) (no (unknown) (unknown) Alkaline (units (unkno wn) date) Phosphatase unknown) (unknown) (no (unknown) (unknown) Assessment + Plan (units (unknown) date) narrative: unknown) (unknown) (no (unknown) (unknown) Assessment + Plan (units (unknown) date) unknown) (unknown) (no (unknown) (unknown) Assessment: (units (un known) date) unknown) (unknown) (no (unknown) (unknown) Azithromycin 500 (units (unknown) date) mg/ Dextrose 250 unknown) mls @ 250 mls/hr 02/07/22 15:45 02/07/22 (unknown) (no (unknown) (unknown) B. pertussis DNA (units (unknown) date) (PCR) Not detected unknown) (unknown) (no (unknown) (unknown) B. pertussis DNA (units (unknown) date) (PCR) unknown) (unknown) (no (unknown) (unknown) B.parapertussis (units (unknown) date) DNA PCR Not unknown) detected (unknown) (no (unknown) (unknown) B.parapertussis (units (unknown) date) DNA PCR unknown) (unknown) (no (unknown) (unknown) BEDTIME [place] (units (un known) date) unknown) (unknown) (no (unknown) (unknown) BUN 14 (units (unkno wn) date) unknown) (unknown) (no (unknown) (unknown) BUN 8 (units (unkno wn) date) unknown) (unknown) (no (unknown) (unknown) BUN (units (unkno wn) date) unknown) (unknown) (no (unknown) (unknown) BUN/Creatinine (units (unknown) date) Ratio 14.8 unknown) (unknown) (no (unknown) (unknown) BUN/Creatinine (units (unknown) date) Ratio 21.9 unknown) (unknown) (no (unknown) (unknown) BUN/Creatinine (units (unknown) date) Ratio unknown) (unknown) (no (unknown) (unknown) Baso # (Auto) 0 (units (unknown) date) unknown) (unknown) (no (unknown) (unknown) Baso # (Auto) (units ( unknown) date) unknown) (unknown) (no (unknown) (unknown) Baso % (Auto) 0.3 (units (unknown) date) unknown) (unknown) (no (unknown) (unknown) Baso % (Auto) 0.5 (units (unknown) date) unknown) (unknown) (no (unknown) (unknown) Baso % (Auto) (units ( unknown) date) unknown) (unknown) (no (unknown) (unknown) Blood Pressure (units (unknown) date) 101/67 104/62 unknown) (unknown) (no (unknown) (unknown) Blood Pressure (units (unknown) date) 105/63 unknown) (unknown) (no (unknown) (unknown) Blood Pressure (units (unknown) date) 82/53 L unknown) (unknown) (no (unknown) (unknown) Blood Pressure (units (unknown) date) 88/57 L 99/61 unknown) (unknown) (no (unknown) (unknown) Blood Pressure (units (unknown) date) 89/57 L 99/60 unknown) (unknown) (no (unknown) (unknown) Blood Pressure (units (unknown) date) 96/60 89/58 L unknown) (unknown) (no (unknown) (unknown) Blood Pressure (units (unknown) date) 97/62 unknown) (unknown) (no (unknown) (unknown) Blood Pressure (units (unknown) date) 98/60 98/60 unknown) (unknown) (no (unknown) (unknown) Blood Pressure (units (unknown) date) 98/60 99/61 unknown) (unknown) (no (unknown) (unknown) Blood Pressure (units (unknown) date) 98/60 99/62 unknown) (unknown) (no (unknown) (unknown) Blood Pressure (units (unknown) date) 98/61 unknown) (unknown) (no (unknown) (unknown) Blood Pressure (units (unknown) date) unknown) (unknown) (no (unknown) (unknown) CK-MB (CK-2) 2.02 (units (unknown) date) unknown) (unknown) (no (unknown) (unknown) CK-MB (CK-2) Rel (units (unknown) date) Index 0.2 L unknown) (unknown) (no (unknown) (unknown) CK-MB (CK-2) Rel (units (unknown) date) Index unknown) (unknown) (no (unknown) (unknown) CK-MB (CK-2) (units (u nknown) date) unknown) (unknown) (no (unknown) (unknown) Calcium 6.6 L (units ( unknown) date) unknown) (unknown) (no (unknown) (unknown) Calcium 8.3 L (units ( unknown) date) unknown) (unknown) (no (unknown) (unknown) Calcium (units (unkno wn) date) unknown) (unknown) (no (unknown) (unknown) Carbon Dioxide 23 (units (unknown) date) unknown) (unknown) (no (unknown) (unknown) Carbon Dioxide (units (unknown) date) unknown) (unknown) (no (unknown) (unknown) Chlamy pneumoniae (units (unknown) date) PCR Not detected unknown) (unknown) (no (unknown) (unknown) Chlamy pneumoniae (units (unknown) date) PCR unknown) (unknown) (no (unknown) (unknown) Chloride 107 (units (u nknown) date) unknown) (unknown) (no (unknown) (unknown) Chloride 99 (units (un known) date) unknown) (unknown) (no (unknown) (unknown) Chloride (units (unkno wn) date) unknown) (unknown) (no (unknown) (unknown) Consent obtained (units (unknown) date) for unknown) tele-anesthesia assistant care: Yes (unknown) (no (unknown) (unknown) Coronavirus 229E (units (unknown) date) (PCR) Not detected unknown) (unknown) (no (unknown) (unknown) Coronavirus 229E (units (unknown) date) (PCR) unknown) (unknown) (no (unknown) (unknown) Coronavirus HKU1 (units (unknown) date) (PCR) Not detected unknown) (unknown) (no (unknown) (unknown) Coronavirus HKU1 (units (unknown) date) (PCR) unknown) (unknown) (no (unknown) (unknown) Coronavirus NL63 (units (unknown) date) (PCR) Not detected unknown) (unknown) (no (unknown) (unknown) Coronavirus NL63 (units (unknown) date) (PCR) unknown) (unknown) (no (unknown) (unknown) Coronavirus OC43 (units (unknown) date) (PCR) Not detected unknown) (unknown) (no (unknown) (unknown) Coronavirus OC43 (units (unknown) date) (PCR) unknown) (unknown) (no (unknown) (unknown) Creatinine 0.54 (units (unknown) date) unknown) (unknown) (no (unknown) (unknown) Creatinine 0.64 (units (unknown) date) unknown) (unknown) (no (unknown) (unknown) Creatinine (units (unk nown) date) unknown) (unknown) (no (unknown) (unknown) Critical Care (units ( unknown) date) time: unknown) (unknown) (no (unknown) (unknown) Current (units (unkno wn) date) Medications unknown) (unknown) (no (unknown) (unknown) D-Dimer 2351 H (units (unknown) date) unknown) (unknown) (no (unknown) (unknown) D-Dimer (units (unkno wn) date) unknown) (unknown) (no (unknown) (unknown) : 1990 (units (unknown) date) Acct:[id number] unknown) (unknown) (no (unknown) (unknown) Date of Service: (units (unknown) date) 02/07/22 unknown) (unknown) (no (unknown) (unknown) Deep Vein (units (unkn own) date) Thrombosis/Pulmonar unknown) y Embolism Present on Admission: No (unknown) (no (unknown) (unknown) Diphenhydramine 50 (units (unknown) date) Mg/Ml Vial IV 25 mg unknown) (unknown) (no (unknown) (unknown) Diphenhydramine (units (unknown) date) HCl 25 mg 02/07/22 unknown) 22:50 02/08/22 05:27 (unknown) (no (unknown) (unknown) Entero/Rhino (PCR) (units (unknown) date) Not detected unknown) (unknown) (no (unknown) (unknown) Entero/Rhino (PCR) (units (unknown) date) unknown) (unknown) (no (unknown) (unknown) Eos # (Auto) 0 (units (unknown) date) unknown) (unknown) (no (unknown) (unknown) Eos # (Auto) (units (u nknown) date) unknown) (unknown) (no (unknown) (unknown) Eos % (Auto) 0.0 L (units (unknown) date) unknown) (unknown) (no (unknown) (unknown) Eos % (Auto) (units (u nknown) date) unknown) (unknown) (no (unknown) (unknown) Estimated GFR > 60 (units (unknown) date) unknown) (unknown) (no (unknown) (unknown) Estimated GFR (units ( unknown) date) unknown) (unknown) (no (unknown) (unknown) Exam (units (unkno wn) date) unknown) (unknown) (no (unknown) (unknown) Generic Name Dose (units (unknown) date) Route Start Last unknown) Admin (unknown) (no (unknown) (unknown) Globulin 4.3 H (units (unknown) date) unknown) (unknown) (no (unknown) (unknown) Globulin (units (unkno wn) date) unknown) (unknown) (no (unknown) (unknown) Glucose 113 H (units ( unknown) date) unknown) (unknown) (no (unknown) (unknown) Glucose 64 L (units (u nknown) date) unknown) (unknown) (no (unknown) (unknown) Glucose (units (unkno wn) date) unknown) (unknown) (no (unknown) (unknown) Hct 28.0 L (units (unk nown) date) unknown) (unknown) (no (unknown) (unknown) Hct 32.5 L (units (unk nown) date) unknown) (unknown) (no (unknown) (unknown) Hct (units (unkno wn) date) unknown) (unknown) (no (unknown) (unknown) Hgb 10.9 L (units (unk nown) date) unknown) (unknown) (no (unknown) (unknown) Hgb 9.3 L (units (unkn own) date) unknown) (unknown) (no (unknown) (unknown) Hgb (units (unkno wn) date) unknown) (unknown) (no (unknown) (unknown) Home Medications (units (unknown) date) unknown) (unknown) (no (unknown) (unknown) Human (units (unkno wn) date) Metapneumovir PCR unknown) Not detected (unknown) (no (unknown) (unknown) Human (units (unkno wn) date) Metapneumovir PCR unknown) (unknown) (no (unknown) (unknown) I spent a total of (units (unknown) date) [] minutes of unknown) critical care time on this patient's care (unknown) (no (unknown) (unknown) IF CAMERA (units (unkn own) date) ACTIVATED, patient unknown) seen via real-time interactive audiovisual (unknown) (no (unknown) (unknown) IV Infused (units (unk nown) date) unknown) (unknown) (no (unknown) (unknown) Influenza A (units (un known) date) (RT-PCR) Flu a unknown) negative (unknown) (no (unknown) (unknown) Influenza A (units (un known) date) (RT-PCR) unknown) (unknown) (no (unknown) (unknown) Influenza B (units (un known) date) (RT-PCR) Flu b unknown) negative (unknown) (no (unknown) (unknown) Influenza B (units (un known) date) (RT-PCR) unknown) (unknown) (no (unknown) (unknown) Influenza Type A (units (unknown) date) (PCR) Not detected unknown) (unknown) (no (unknown) (unknown) Influenza Type A (units (unknown) date) (PCR) unknown) (unknown) (no (unknown) (unknown) Influenza Type B (units (unknown) date) (PCR) Not detected unknown) (unknown) (no (unknown) (unknown) Influenza Type B (units (unknown) date) (PCR) unknown) (unknown) (no (unknown) (unknown) Interval history: (units (unknown) date) unknown) (unknown) (no (unknown) (unknown) [facility] (units (unknown) date) [address] unknown) [place] [address] (unknown) (no (unknown) (unknown) Itching (units (unkno wn) date) unknown) (unknown) (no (unknown) (unknown) Laboratory Results (units (unknown) date) - last 24 hr unknown) (unknown) (no (unknown) (unknown) Labs (units (unkno wn) date) unknown) (unknown) (no (unknown) (unknown) Labs: (units (unkno wn) date) unknown) (unknown) (no (unknown) (unknown) Lactate 1.6 (units (un known) date) unknown) (unknown) (no (unknown) (unknown) Lactate (units (unkno wn) date) unknown) (unknown) (no (unknown) (unknown) Levophed IV 0 (units ( unknown) date) mcg/min unknown) (unknown) (no (unknown) (unknown) Lymph # (Auto) (units (unknown) date) 1000 L unknown) (unknown) (no (unknown) (unknown) Lymph # (Auto) 900 (units (unknown) date) L unknown) (unknown) (no (unknown) (unknown) Lymph # (Auto) (units (unknown) date) unknown) (unknown) (no (unknown) (unknown) Lymph % (Auto) (units (unknown) date) 20.7 L unknown) (unknown) (no (unknown) (unknown) Lymph % (Auto) (units (unknown) date) 21.3 L unknown) (unknown) (no (unknown) (unknown) Lymph % (Auto) (units (unknown) date) unknown) (unknown) (no (unknown) (unknown) M. pneumoniae (units ( unknown) date) (PCR) Not detected unknown) (unknown) (no (unknown) (unknown) M. pneumoniae (units ( unknown) date) (PCR) unknown) (unknown) (no (unknown) (unknown) [id number] (units (unk nown) date) unknown) (unknown) (no (unknown) (unknown) MCH 28.7 (units (unkno wn) date) unknown) (unknown) (no (unknown) (unknown) MCH 29.0 (units (unkno wn) date) unknown) (unknown) (no (unknown) (unknown) MCH (units (unkno wn) date) unknown) (unknown) (no (unknown) (unknown) MCHC 33.3 (units (unkn own) date) unknown) (unknown) (no (unknown) (unknown) MCHC 33.5 (units (unkn own) date) unknown) (unknown) (no (unknown) (unknown) MCHC (units (unkno wn) date) unknown) (unknown) (no (unknown) (unknown) MCV 85.7 (units (unkno wn) date) unknown) (unknown) (no (unknown) (unknown) MCV 87.1 (units (unkno wn) date) unknown) (unknown) (no (unknown) (unknown) MCV (units (unkno wn) date) unknown) (unknown) (no (unknown) (unknown) Magnesium 2.1 (units ( unknown) date) unknown) (unknown) (no (unknown) (unknown) Magnesium (units (unkn own) date) unknown) (unknown) (no (unknown) (unknown) Medications: (units (u nknown) date) unknown) (unknown) (no (unknown) (unknown) Butts # (Auto) 300 (units (unknown) date) unknown) (unknown) (no (unknown) (unknown) Butts # (Auto) 500 (units (unknown) date) unknown) (unknown) (no (unknown) (unknown) Butts # (Auto) (units ( unknown) date) unknown) (unknown) (no (unknown) (unknown) Butts % (Auto) 10.1 (units (unknown) date) unknown) (unknown) (no (unknown) (unknown) Butts % (Auto) 7.2 (units (unknown) date) unknown) (unknown) (no (unknown) (unknown) Butts % (Auto) (units ( unknown) date) unknown) (unknown) (no (unknown) (unknown) NOREPINEPHRINE (units (unknown) date) BITARTRATE/D5W 4 mg unknown) in 250 mls @ 30 mls/hr 02/07/22 12:34 (unknown) (no (unknown) (unknown) Nasal Screen MRSA (units (unknown) date) (PCR) Negative for unknown) mrsa (unknown) (no (unknown) (unknown) Nasal Screen MRSA (units (unknown) date) (PCR) unknown) (unknown) (no (unknown) (unknown) Neut # (Auto) 3100 (units (unknown) date) unknown) (unknown) (no (unknown) (unknown) Neut # (Auto) 3400 (units (unknown) date) unknown) (unknown) (no (unknown) (unknown) Neut # (Auto) (units ( unknown) date) unknown) (unknown) (no (unknown) (unknown) Neut % (Auto) 68.7 (units (unknown) date) unknown) (unknown) (no (unknown) (unknown) Neut % (Auto) 71.2 (units (unknown) date) unknown) (unknown) (no (unknown) (unknown) Neut % (Auto) (units ( unknown) date) unknown) (unknown) (no (unknown) (unknown) Objective (units (unkn own) date) unknown) (unknown) (no (unknown) (unknown) Olanzapine 20 mg (units (unknown) date) 02/07/22 21:00 unknown) 02/07/22 21:50 (unknown) (no (unknown) (unknown) Olanzapine Odt 10 (units (unknown) date) Mg Tab PO Not Given unknown) (unknown) (no (unknown) (unknown) Other (units (unkno wn) date) participants/roles: unknown) RN, hospitalist (unknown) (no (unknown) (unknown) Oxygen Delivery (units (unknown) date) Method Room Air unknown) (unknown) (no (unknown) (unknown) Oxygen Flow Rate 0 (units (unknown) date) unknown) (unknown) (no (unknown) (unknown) Oxygen Flow Rate (units (unknown) date) unknown) (unknown) (no (unknown) (unknown) Parainfluenza 1 (units (unknown) date) (PCR) Not detected unknown) (unknown) (no (unknown) (unknown) Parainfluenza 1 (units (unknown) date) (PCR) unknown) (unknown) (no (unknown) (unknown) Parainfluenza 2 (units (unknown) date) (PCR) Not detected unknown) (unknown) (no (unknown) (unknown) Parainfluenza 2 (units (unknown) date) (PCR) unknown) (unknown) (no (unknown) (unknown) Parainfluenza 3 (units (unknown) date) (PCR) Not detected unknown) (unknown) (no (unknown) (unknown) Parainfluenza 3 (units (unknown) date) (PCR) unknown) (unknown) (no (unknown) (unknown) Parainfluenza 4 (units (unknown) date) (PCR) Not detected unknown) (unknown) (no (unknown) (unknown) Parainfluenza 4 (units (unknown) date) (PCR) unknown) (unknown) (no (unknown) (unknown) Patient Location: (units (unknown) date) ICU unknown) (unknown) (no (unknown) (unknown) Patient Summary: 31 (units (unknown) date) yo W with PMH of unknown) Schizophrenia (non-verbal), PE (prevniously (unknown) (no (unknown) (unknown) Patient: (units (unkno wn) date) [place] unknown) MR#: (unknown) (no (unknown) (unknown) Piperacillin (units (u nknown) date) Sod/Tazobactam 100 unknown) mls @ 25 mls/hr 02/07/22 21:00 02/08/22 04:46 (unknown) (no (unknown) (unknown) Plan (units (unkno wn) date) unknown) (unknown) (no (unknown) (unknown) Plt Count 115 L (units (unknown) date) unknown) (unknown) (no (unknown) (unknown) Plt Count 155 (units ( unknown) date) unknown) (unknown) (no (unknown) (unknown) Plt Count (units (unkn own) date) unknown) (unknown) (no (unknown) (unknown) Potassium 3.0 L (units (unknown) date) unknown) (unknown) (no (unknown) (unknown) Potassium 3.6 (units ( unknown) date) unknown) (unknown) (no (unknown) (unknown) Potassium (units (unkn own) date) unknown) (unknown) (no (unknown) (unknown) Procalcitonin 0.87 (units (unknown) date) H unknown) (unknown) (no (unknown) (unknown) Procalcitonin 1.08 (units (unknown) date) H unknown) (unknown) (no (unknown) (unknown) Procalcitonin (units ( unknown) date) unknown) (unknown) (no (unknown) (unknown) Prolactin 33.7 H (units (unknown) date) unknown) (unknown) (no (unknown) (unknown) Prolactin (units (unkn own) date) unknown) (unknown) (no (unknown) (unknown) Protocol (units (unkno wn) date) unknown) (unknown) (no (unknown) (unknown) Provider location (units (unknown) date) (State): [place] unknown) (unknown) (no (unknown) (unknown) Provider: Alexander Cuevas (units (unknown) date) Radha MEYERS unknown) (unknown) (no (unknown) (unknown) Pulse Oximetry 100 (units (unknown) date) 90 L unknown) (unknown) (no (unknown) (unknown) Pulse Oximetry 100 (units (unknown) date) 99 unknown) (unknown) (no (unknown) (unknown) Pulse Oximetry 100 (units (unknown) date) unknown) (unknown) (no (unknown) (unknown) Pulse Oximetry 82 (units (unknown) date) L unknown) (unknown) (no (unknown) (unknown) Pulse Oximetry 92 (units (unknown) date) unknown) (unknown) (no (unknown) (unknown) Pulse Oximetry 97 (units (unknown) date) 99 unknown) (unknown) (no (unknown) (unknown) Pulse Oximetry 98 (units (unknown) date) unknown) (unknown) (no (unknown) (unknown) Pulse Oximetry 99 (units (unknown) date) 98 unknown) (unknown) (no (unknown) (unknown) Pulse Oximetry 99 (units (unknown) date) 99 unknown) (unknown) (no (unknown) (unknown) Pulse Oximetry 99 (units (unknown) date) unknown) (unknown) (no (unknown) (unknown) Pulse Oximetry (units (unknown) date) unknown) (unknown) (no (unknown) (unknown) Pulse Rate 106 H (units (unknown) date) unknown) (unknown) (no (unknown) (unknown) Pulse Rate 80 78 (units (unknown) date) unknown) (unknown) (no (unknown) (unknown) Pulse Rate 81 (units ( unknown) date) unknown) (unknown) (no (unknown) (unknown) Pulse Rate 86 (units ( unknown) date) unknown) (unknown) (no (unknown) (unknown) Pulse Rate 87 (units ( unknown) date) unknown) (unknown) (no (unknown) (unknown) Pulse Rate 88 96 H (units (unknown) date) unknown) (unknown) (no (unknown) (unknown) Pulse Rate 89 93 H (units (unknown) date) unknown) (unknown) (no (unknown) (unknown) Pulse Rate 92 H (units (unknown) date) unknown) (unknown) (no (unknown) (unknown) Pulse Rate 95 H 79 (units (unknown) date) unknown) (unknown) (no (unknown) (unknown) Pulse Rate 97 H 86 (units (unknown) date) unknown) (unknown) (no (unknown) (unknown) Q24H [place] Infusion (units (unknown) date) unknown) (unknown) (no (unknown) (unknown) Q4HR PRN (units (unkno wn) date) Administration unknown) (unknown) (no (unknown) (unknown) Q8H [place] (units (unkno wn) date) Administration unknown) (unknown) (no (unknown) (unknown) Q8H [place] Infusion (units (unknown) date) unknown) (unknown) (no (unknown) (unknown) Quality TeleICU (units (unknown) date) unknown) (unknown) (no (unknown) (unknown) RBC 3.22 L (units (unk nown) date) unknown) (unknown) (no (unknown) (unknown) RBC 3.79 L (units (unk nown) date) unknown) (unknown) (no (unknown) (unknown) RBC (units (unkno wn) date) unknown) (unknown) (no (unknown) (unknown) RDW 14.1 (units (unkno wn) date) unknown) (unknown) (no (unknown) (unknown) RDW 14.7 (units (unkno wn) date) unknown) (unknown) (no (unknown) (unknown) RDW (units (unkno wn) date) unknown) (unknown) (no (unknown) (unknown) RSV (PCR) Negative (units (unknown) date) unknown) (unknown) (no (unknown) (unknown) RSV (PCR) Not (units ( unknown) date) detected unknown) (unknown) (no (unknown) (unknown) RSV (PCR) (units (unkn own) date) unknown) (unknown) (no (unknown) (unknown) Respiratory Rate (units (unknown) date) 24 unknown) (unknown) (no (unknown) (unknown) Respiratory Rate (units (unknown) date) 25 H 20 unknown) (unknown) (no (unknown) (unknown) Respiratory Rate (units (unknown) date) 29 H unknown) (unknown) (no (unknown) (unknown) Respiratory Rate (units (unknown) date) 34 H 34 H unknown) (unknown) (no (unknown) (unknown) Respiratory Rate (units (unknown) date) 36 H unknown) (unknown) (no (unknown) (unknown) Respiratory Rate (units (unknown) date) 38 H unknown) (unknown) (no (unknown) (unknown) Respiratory Rate (units (unknown) date) 39 H 44 H unknown) (unknown) (no (unknown) (unknown) Respiratory Rate (units (unknown) date) 40 H 19 unknown) (unknown) (no (unknown) (unknown) Respiratory Rate (units (unknown) date) 41 H unknown) (unknown) (no (unknown) (unknown) Respiratory Rate (units (unknown) date) 42 H unknown) (unknown) (no (unknown) (unknown) Respiratory Rate (units (unknown) date) 43 H 36 H unknown) (unknown) (no (unknown) (unknown) Respiratory Rate (units (unknown) date) 43 H unknown) (unknown) (no (unknown) (unknown) Result Diagrams: (units (unknown) date) unknown) (unknown) (no (unknown) (unknown) SARS-CoV-2 (PCR) (units (unknown) date) Negative unknown) (unknown) (no (unknown) (unknown) SARS-CoV-2 (PCR) (units (unknown) date) Not detected unknown) (unknown) (no (unknown) (unknown) SARS-CoV-2 (PCR) (units (unknown) date) unknown) (unknown) (no (unknown) (unknown) Schizophrenia (units ( unknown) date) unknown) (unknown) (no (unknown) (unknown) Septic Shock from (units (unknown) date) skin infection from unknown) picking (unknown) (no (unknown) (unknown) Signed By: (units (unk nown) date) unknown) (unknown) (no (unknown) (unknown) Sod 3.375 gm/ (units ( unknown) date) Sodium Chloride IV unknown) 25 mls/hr (unknown) (no (unknown) (unknown) Sodium 134 L (units (u nknown) date) unknown) (unknown) (no (unknown) (unknown) Sodium 137 (units (unk nown) date) unknown) (unknown) (no (unknown) (unknown) Sodium (units (unkno wn) date) unknown) (unknown) (no (unknown) (unknown) Subjective (units (unk nown) date) unknown) (unknown) (no (unknown) (unknown) TITRATE [facility] 0 (units ( unknown) date) mls/hr unknown) (unknown) (no (unknown) (unknown) 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 (units (unknown) date) Progress Note unknown) (unknown) (no (unknown) (unknown) Temperature 100.0 (units (unknown) date) F H unknown) (unknown) (no (unknown) (unknown) Temperature 100.2 (units (unknown) date) F H unknown) (unknown) (no (unknown) (unknown) Temperature 96.6 F (units (unknown) date) L 98.1 F unknown) (unknown) (no (unknown) (unknown) Temperature 98.1 F (units (unknown) date) 99.1 F unknown) (unknown) (no (unknown) (unknown) Temperature 98.2 F (units (unknown) date) 98.4 F unknown) (unknown) (no (unknown) (unknown) Temperature 98.4 F (units (unknown) date) 98.2 F unknown) (unknown) (no (unknown) (unknown) Temperature 98.4 F (units (unknown) date) 98.4 F unknown) (unknown) (no (unknown) (unknown) Temperature 98.6 F (units (unknown) date) 98.1 F 98.6 F unknown) (unknown) (no (unknown) (unknown) Temperature 98.6 F (units (unknown) date) 98.4 F unknown) (unknown) (no (unknown) (unknown) Temperature 98.6 F (units (unknown) date) 99.0 F unknown) (unknown) (no (unknown) (unknown) Temperature 98.8 F (units (unknown) date) unknown) (unknown) (no (unknown) (unknown) Temperature 99.5 F (units (unknown) date) 99.7 F H unknown) (unknown) (no (unknown) (unknown) Time Spent With (units (unknown) date) Patient unknown) (unknown) (no (unknown) (unknown) Titration (units (unkn own) date) unknown) (unknown) (no (unknown) (unknown) Total Bilirubin (units (unknown) date) 0.5 unknown) (unknown) (no (unknown) (unknown) Total Bilirubin (units (unknown) date) unknown) (unknown) (no (unknown) (unknown) Total Creatine (units (unknown) date) Kinase 825 H unknown) (unknown) (no (unknown) (unknown) Total Creatine (units (unknown) date) Kinase unknown) (unknown) (no (unknown) (unknown) Total Protein 7.9 (units (unknown) date) unknown) (unknown) (no (unknown) (unknown) Total Protein (units ( unknown) date) unknown) (unknown) (no (unknown) (unknown) Trade Name Freq (units (unknown) date) PRN Reason Stop unknown) Dose Admin (unknown) (no (unknown) (unknown) Troponin I < 0.012 (units (unknown) date) unknown) (unknown) (no (unknown) (unknown) Troponin I (units (unk nown) date) unknown) (unknown) (no (unknown) (unknown) U Benzodiazepines (units (unknown) date) Scrn Negative unknown) (unknown) (no (unknown) (unknown) U Benzodiazepines (units (unknown) date) Scrn unknown) (unknown) (no (unknown) (unknown) U Marijuana (THC) (units (unknown) date) Screen Negative unknown) (unknown) (no (unknown) (unknown) U Marijuana (THC) (units (unknown) date) Screen unknown) (unknown) (no (unknown) (unknown) U Methamphetamines (units (unknown) date) Scrn Negative unknown) (unknown) (no (unknown) (unknown) U Methamphetamines (units (unknown) date) Scrn unknown) (unknown) (no (unknown) (unknown) U Opiates 300ng/mL (units (unknown) date) cut Negative unknown) (unknown) (no (unknown) (unknown) U Opiates 300ng/mL (units (unknown) date) cut unknown) (unknown) (no (unknown) (unknown) U Tricyclic (units (un known) date) Antidepress unknown) Negative (unknown) (no (unknown) (unknown) U Tricyclic (units (un known) date) Antidepress unknown) (unknown) (no (unknown) (unknown) Ur Amphetamines (units (unknown) date) Screen Negative unknown) (unknown) (no (unknown) (unknown) Ur Amphetamines (units (unknown) date) Screen unknown) (unknown) (no (unknown) (unknown) Ur Barbiturates (units (unknown) date) Screen Negative unknown) (unknown) (no (unknown) (unknown) Ur Barbiturates (units (unknown) date) Screen unknown) (unknown) (no (unknown) (unknown) Ur Culture (units (unk nown) date) Indicated? Cult not unknown) indicated (unknown) (no (unknown) (unknown) Ur Culture (units (unk nown) date) Indicated? unknown) (unknown) (no (unknown) (unknown) Ur MDMA Scrn (units (u nknown) date) (Ecstasy) Negative unknown) (unknown) (no (unknown) (unknown) Ur MDMA Scrn (units (u nknown) date) (Ecstasy) unknown) (unknown) (no (unknown) (unknown) Ur Oxycodone (units (u nknown) date) Screen Negative unknown) (unknown) (no (unknown) (unknown) Ur Oxycodone (units (u nknown) date) Screen unknown) (unknown) (no (unknown) (unknown) Ur Phencyclidine (units (unknown) date) Scrn Negative unknown) (unknown) (no (unknown) (unknown) Ur Phencyclidine (units (unknown) date) Scrn unknown) (unknown) (no (unknown) (unknown) Ur Squamous Epith (units (unknown) date) Cells 1-5 /hpf unknown) (unknown) (no (unknown) (unknown) Ur Squamous Epith (units (unknown) date) Cells unknown) (unknown) (no (unknown) (unknown) Ur Transition (units ( unknown) date) Epith Cell 0-1/hpf unknown) (unknown) (no (unknown) (unknown) Ur Transition (units ( unknown) date) Epith Cell unknown) (unknown) (no (unknown) (unknown) Urine Bacteria (units (unknown) date) None seen unknown) (unknown) (no (unknown) (unknown) Urine Bacteria (units (unknown) date) unknown) (unknown) (no (unknown) (unknown) Urine Cocaine (units ( unknown) date) Screen Negative unknown) (unknown) (no (unknown) (unknown) Urine Cocaine (units ( unknown) date) Screen unknown) (unknown) (no (unknown) (unknown) Urine Methadone (units (unknown) date) Screen Negative unknown) (unknown) (no (unknown) (unknown) Urine Methadone (units (unknown) date) Screen unknown) (unknown) (no (unknown) (unknown) Urine (units (unknown) date) Test Negative unknown) (unknown) (no (unknown) (unknown) Urine (units (unknown) date) Test unknown) (unknown) (no (unknown) (unknown) Urine RBC None (units (unknown) date) seen unknown) (unknown) (no (unknown) (unknown) Urine RBC (units (unkn own) date) unknown) (unknown) (no (unknown) (unknown) Urine WBC 1-5/hpf (units (unknown) date) unknown) (unknown) (no (unknown) (unknown) Urine WBC (units (unkn own) date) unknown) (unknown) (no (unknown) (unknown) VTE (units (unkno wn) date) unknown) (unknown) (no (unknown) (unknown) Vancomycin HCl 750 (units (unknown) date) mg in 150 mls @ 150 unknown) mls/hr 02/07/22 18:00 02/08/22 03:04 (unknown) (no (unknown) (unknown) Vancomycin IV (units ( unknown) date) Infused unknown) (unknown) (no (unknown) (unknown) Visit Medications (units (unknown) date) (administered) unknown) (unknown) (no (unknown) (unknown) Vital Signs (units (un known) date) unknown) (unknown) (no (unknown) (unknown) WBC 4.5 (units (unkno wn) date) unknown) (unknown) (no (unknown) (unknown) WBC 4.7 (units (unkno wn) date) unknown) (unknown) (no (unknown) (unknown) WBC (units (unkno wn) date) unknown) (unknown) (no (unknown) (unknown) [Embedded Image (units (unknown) date) Not Available] unknown) (unknown) (no (unknown) (unknown) antibiotics and (units (unknown) date) Levophed drip. 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 (unknown) (no (unknown) (unknown) communication: (units (unknown) date) Camera activated unknown) (unknown) (no (unknown) (unknown) olanzapine 15 mg (units (unknown) date) tablet 15 mg PO unknown) BEDTIME #90 tabs 09/23/20 [Rx Confirmed (unknown) (no (unknown) (unknown) on AC many years (units (unknown) date) ago, s/p IVC unknown) filter, unclear if removed) was admitted 02/07/22 (unknown) (no (unknown) (unknown) today; this time (units (unknown) date) is exclusive of unknown) procedural time. (unknown) (no (unknown) (unknown) with septic shock (units (unknown) date) from skin infection unknown) (from picking?). Pt. placed on Result panel 478 (unknown) (no date) (unknown) (unknown) (no value) (units (un known) unknown) (unknown) (no date) (unknown) (unknown) NO GROWTH (units (unk nown) AFTER 24 unknown) HOURS Result panel 479 (unknown) (no (unknown) (unknown) (no value) (units (unk nown) date) unknown) (unknown) (no (unknown) (unknown) (past 8 hours): (units (unknown) date) unknown) (unknown) (no (unknown) (unknown) -IV azithromycin (units (unknown) date) added for atypical unknown) coverage due to interstitial infiltrates on (unknown) (no (unknown) (unknown) -blood cultures x2 (units (unknown) date) pending unknown) (unknown) (no (unknown) (unknown) -chest x-ray (units (u nknown) date) personally reviewed unknown) and shows nonspecific diffuse interstitial (unknown) (no (unknown) (unknown) -continue on (units (u nknown) date) vancomycin and unknown) Zosyn started in the ED (unknown) (no (unknown) (unknown) -currently on (units ( unknown) date) low-dose Levophed unknown) to maintain map greater than 65 (unknown) (no (unknown) (unknown) -differential (units ( unknown) date) diagnosis includes unknown) non infectious source of fever and hypotension (unknown) (no (unknown) (unknown) -event was (units (unk nown) date) reportedly in 2018, unknown) unknown whether IVC filter was ever removed, (unknown) (no (unknown) (unknown) -modified Wells (units (unknown) date) score is 3 based on unknown) tachycardia and history of PE (unknown) (no (unknown) (unknown) -nasal MRSA swab (units (unknown) date) unknown) (unknown) (no (unknown) (unknown) -normal (units (unkno wn) date) urinalysis, unknown) respiratory panel PCR, normal WBC without left shift but (unknown) (no (unknown) (unknown) -patient got (units (u nknown) date) Zyprexa in the ED unknown) (unknown) (no (unknown) (unknown) -patient presents (units (unknown) date) febrile, unknown) tachycardic and tachypneic and became hypotensive in (unknown) (no (unknown) (unknown) -per discussion (units (unknown) date) with Psychiatry, unknown) increased olanzapine from 50 mg to 20 mg at (unknown) (no (unknown) (unknown) -per discussion (units (unknown) date) with tele ICU, unknown) order D-dimer-if D-dimer elevated and patient (unknown) (no (unknown) (unknown) -possible source is (units (unknown) date) bacteremia due to unknown) skin lesions on scalp and neck, no mastoid (unknown) (no (unknown) (unknown) -reviewed case (units (unknown) date) workup and unknown) management with Dr Philip, tele ICU (unknown) (no (unknown) (unknown) -right IJ central (units (unknown) date) line placed in the unknown) ED (unknown) (no (unknown) (unknown) -urine tox screen (units (unknown) date) unknown) (unknown) (no (unknown) (unknown) -wound culture (units (unknown) date) obtained from right unknown) ear drainage (unknown) (no (unknown) (unknown) 01:30 02/08/22 (units (unknown) date) unknown) (unknown) (no (unknown) (unknown) 02:00 02/08/22 (units (unknown) date) unknown) (unknown) (no (unknown) (unknown) 02:00 (units (unkno wn) date) unknown) (unknown) (no (unknown) (unknown) 02:30 02/08/22 (units (unknown) date) unknown) (unknown) (no (unknown) (unknown) 02:30 (units (unkno wn) date) unknown) (unknown) (no (unknown) (unknown) 03:00 02/08/22 (units (unknown) date) unknown) (unknown) (no (unknown) (unknown) 03:00 (units (unkno wn) date) unknown) (unknown) (no (unknown) (unknown) 03:30 02/08/22 (units (unknown) date) unknown) (unknown) (no (unknown) (unknown) 04:00 02/08/22 (units (unknown) date) unknown) (unknown) (no (unknown) (unknown) 04:00 (units (unkno wn) date) unknown) (unknown) (no (unknown) (unknown) 04:30 02/08/22 (units (unknown) date) unknown) (unknown) (no (unknown) (unknown) 04:30 (units (unkno wn) date) unknown) (unknown) (no (unknown) (unknown) 05:00 02/08/22 (units (unknown) date) unknown) (unknown) (no (unknown) (unknown) 05:00 (units (unkno wn) date) unknown) (unknown) (no (unknown) (unknown) 05:30 02/08/22 (units (unknown) date) unknown) (unknown) (no (unknown) (unknown) 06:00 02/08/22 (units (unknown) date) unknown) (unknown) (no (unknown) (unknown) 06:00 (units (unkno wn) date) unknown) (unknown) (no (unknown) (unknown) 06:30 02/08/22 (units (unknown) date) unknown) (unknown) (no (unknown) (unknown) 06:30 (units (unkno wn) date) unknown) (unknown) (no (unknown) (unknown) 07:00 02/08/22 (units (unknown) date) unknown) (unknown) (no (unknown) (unknown) 07:30 02/08/22 (units (unknown) date) unknown) (unknown) (no (unknown) (unknown) 07:30 (units (unkno wn) date) unknown) (unknown) (no (unknown) (unknown) 08:00 02/08/22 (units (unknown) date) unknown) (unknown) (no (unknown) (unknown) 08:00 (units (unkno wn) date) unknown) (unknown) (no (unknown) (unknown) 08:22 08:22 08:22 (units (unknown) date) unknown) (unknown) (no (unknown) (unknown) 08:27 08:42 09:20 (units (unknown) date) unknown) (unknown) (no (unknown) (unknown) 08:30 02/08/22 (units (unknown) date) unknown) (unknown) (no (unknown) (unknown) 09:00 (units (unkno wn) date) unknown) (unknown) (no (unknown) (unknown) 09:20 09:20 12:00 (units (unknown) date) unknown) (unknown) (no (unknown) (unknown) 1. 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 Schizophrenia (units (unknown) date) unknown) (unknown) (no (unknown) (unknown) Abdomen: Soft and (units (unknown) date) nontender, no HSM unknown) (unknown) (no (unknown) (unknown) Adenovirus (PCR) (units (unknown) date) Not detected unknown) (unknown) (no (unknown) (unknown) Adenovirus (PCR) (units (unknown) date) unknown) (unknown) (no (unknown) (unknown) Age/Sex: 31 / F (units (unknown) date) unknown) (unknown) (no (unknown) (unknown) Assessment + Plan (units (unknown) date) narrative: unknown) (unknown) (no (unknown) (unknown) Assessment + Plan (units (unknown) date) unknown) (unknown) (no (unknown) (unknown) B. pertussis DNA (units (unknown) date) (PCR) Not detected unknown) (unknown) (no (unknown) (unknown) B. pertussis DNA (units (unknown) date) (PCR) unknown) (unknown) (no (unknown) (unknown) B.parapertussis (units (unknown) date) DNA PCR Not unknown) detected (unknown) (no (unknown) (unknown) B.parapertussis (units (unknown) date) DNA PCR unknown) (unknown) (no (unknown) (unknown) BUN 8 (units (unkno wn) date) unknown) (unknown) (no (unknown) (unknown) BUN (units (unkno wn) date) unknown) (unknown) (no (unknown) (unknown) BUN/Creatinine (units (unknown) date) Ratio 14.8 unknown) (unknown) (no (unknown) (unknown) BUN/Creatinine (units (unknown) date) Ratio unknown) (unknown) (no (unknown) (unknown) Baso # (Auto) 0 (units (unknown) date) unknown) (unknown) (no (unknown) (unknown) Baso # (Auto) (units ( unknown) date) unknown) (unknown) (no (unknown) (unknown) Baso % (Auto) 0.3 (units (unknown) date) unknown) (unknown) (no (unknown) (unknown) Baso % (Auto) (units ( unknown) date) unknown) (unknown) (no (unknown) (unknown) Blood Pressure (units (unknown) date) 101/67 96/60 unknown) (unknown) (no (unknown) (unknown) Blood Pressure (units (unknown) date) 104/62 unknown) (unknown) (no (unknown) (unknown) Blood Pressure (units (unknown) date) 105/63 98/60 unknown) (unknown) (no (unknown) (unknown) Blood Pressure (units (unknown) date) 82/53 L 89/57 L unknown) (unknown) (no (unknown) (unknown) Blood Pressure (units (unknown) date) 89/58 L unknown) (unknown) (no (unknown) (unknown) Blood Pressure (units (unknown) date) 97/62 101/67 unknown) (unknown) (no (unknown) (unknown) Blood Pressure (units (unknown) date) 98/60 96/60 unknown) (unknown) (no (unknown) (unknown) Blood Pressure (units (unknown) date) 98/61 98/60 unknown) (unknown) (no (unknown) (unknown) Blood Pressure (units (unknown) date) 99/60 88/57 L unknown) (unknown) (no (unknown) (unknown) Blood Pressure (units (unknown) date) 99/61 unknown) (unknown) (no (unknown) (unknown) Blood Pressure (units (unknown) date) unknown) (unknown) (no (unknown) (unknown) CK-MB (CK-2) 2.02 (units (unknown) date) unknown) (unknown) (no (unknown) (unknown) CK-MB (CK-2) Rel (units (unknown) date) Index 0.2 L unknown) (unknown) (no (unknown) (unknown) CK-MB (CK-2) Rel (units (unknown) date) Index unknown) (unknown) (no (unknown) (unknown) CK-MB (CK-2) (units (u nknown) date) unknown) (unknown) (no (unknown) (unknown) Calcium 6.6 L (units ( unknown) date) unknown) (unknown) (no (unknown) (unknown) Calcium (units (unkno wn) date) unknown) (unknown) (no (unknown) (unknown) Carbon Dioxide 23 (units (unknown) date) unknown) (unknown) (no (unknown) (unknown) Carbon Dioxide (units (unknown) date) unknown) (unknown) (no (unknown) (unknown) Chlamy pneumoniae (units (unknown) date) PCR Not detected unknown) (unknown) (no (unknown) (unknown) Chlamy pneumoniae (units (unknown) date) PCR unknown) (unknown) (no (unknown) (unknown) Chloride 107 (units (u nknown) date) unknown) (unknown) (no (unknown) (unknown) Chloride (units (unkno wn) date) unknown) (unknown) (no (unknown) (unknown) Code status: Full (units (unknown) date) code unknown) (unknown) (no (unknown) (unknown) Conjunctiva clear. (units (unknown) date) No drainage from unknown) eyes. (unknown) (no (unknown) (unknown) Coronavirus 229E (units (unknown) date) (PCR) Not detected unknown) (unknown) (no (unknown) (unknown) Coronavirus 229E (units (unknown) date) (PCR) unknown) (unknown) (no (unknown) (unknown) Coronavirus HKU1 (units (unknown) date) (PCR) Not detected unknown) (unknown) (no (unknown) (unknown) Coronavirus HKU1 (units (unknown) date) (PCR) unknown) (unknown) (no (unknown) (unknown) Coronavirus NL63 (units (unknown) date) (PCR) Not detected unknown) (unknown) (no (unknown) (unknown) Coronavirus NL63 (units (unknown) date) (PCR) unknown) (unknown) (no (unknown) (unknown) Coronavirus OC43 (units (unknown) date) (PCR) Not detected unknown) (unknown) (no (unknown) (unknown) Coronavirus OC43 (units (unknown) date) (PCR) unknown) (unknown) (no (unknown) (unknown) Creatinine 0.54 (units (unknown) date) unknown) (unknown) (no (unknown) (unknown) Creatinine (units (unk nown) date) unknown) (unknown) (no (unknown) (unknown) Critical Care (units ( unknown) date) time: unknown) (unknown) (no (unknown) (unknown) D-Dimer 2351 H (units (unknown) date) unknown) (unknown) (no (unknown) (unknown) D-Dimer (units (unkno wn) date) unknown) (unknown) (no (unknown) (unknown) : 1990 (units (unknown) date) Acct:[id number] unknown) (unknown) (no (unknown) (unknown) DVT prophylaxis: (units (unknown) date) Enoxaparin unknown) (unknown) (no (unknown) (unknown) Date of Service: (units (unknown) date) 02/07/22 unknown) (unknown) (no (unknown) (unknown) Deep Vein (units (unkn own) date) Thrombosis/Pulmonar unknown) y Embolism Present on Admission: No (unknown) (no (unknown) (unknown) Entero/Rhino (PCR) (units (unknown) date) Not detected unknown) (unknown) (no (unknown) (unknown) Entero/Rhino (PCR) (units (unknown) date) unknown) (unknown) (no (unknown) (unknown) Eos # (Auto) 0 (units (unknown) date) unknown) (unknown) (no (unknown) (unknown) Eos # (Auto) (units (u nknown) date) unknown) (unknown) (no (unknown) (unknown) Eos % (Auto) 0.0 L (units (unknown) date) unknown) (unknown) (no (unknown) (unknown) Eos % (Auto) (units (u nknown) date) unknown) (unknown) (no (unknown) (unknown) Estimated GFR > 60 (units (unknown) date) unknown) (unknown) (no (unknown) (unknown) Estimated GFR (units ( unknown) date) unknown) (unknown) (no (unknown) (unknown) Exam Narrative: (units (unknown) date) unknown) (unknown) (no (unknown) (unknown) Exam (units (unkno wn) date) unknown) (unknown) (no (unknown) (unknown) Extremities: No (units (unknown) date) skin lesions on unknown) arms or legs, no edema or rash (unknown) (no (unknown) (unknown) General: Presently (units (unknown) date) patient is alert, unknown) calm, nonverbal and appearing comfortable (unknown) (no (unknown) (unknown) Glucose 64 L (units (u nknown) date) unknown) (unknown) (no (unknown) (unknown) Glucose (units (unkno wn) date) unknown) (unknown) (no (unknown) (unknown) HEENT: There is (units (unknown) date) extensive areas unknown) macular erythema and scabbing on the top and (unknown) (no (unknown) (unknown) Hct 28.0 L (units (unk nown) date) unknown) (unknown) (no (unknown) (unknown) Hct (units (unkno wn) date) unknown) (unknown) (no (unknown) (unknown) Heart: Regular (units (unknown) date) rate and rhythm, no unknown) murmur (unknown) (no (unknown) (unknown) Hgb 9.3 L (units (unkn own) date) unknown) (unknown) (no (unknown) (unknown) Hgb (units (unkno wn) date) unknown) (unknown) (no (unknown) (unknown) 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) (unknown) (no (unknown) (unknown) History of (units (unk nown) date) pulmonary embolism unknown) (unknown) (no (unknown) (unknown) Human (units (unkno wn) date) Metapneumovir PCR unknown) Not detected (unknown) (no (unknown) (unknown) Human (units (unkno wn) date) Metapneumovir PCR unknown) (unknown) (no (unknown) (unknown) I spent a total of (units (unknown) date) [] minutes of unknown) critical care time on this patient's care (unknown) (no (unknown) (unknown) Influenza A (units (un known) date) (RT-PCR) Flu a unknown) negative (unknown) (no (unknown) (unknown) Influenza A (units (un known) date) (RT-PCR) unknown) (unknown) (no (unknown) (unknown) Influenza B (units (un known) date) (RT-PCR) Flu b unknown) negative (unknown) (no (unknown) (unknown) Influenza B (units (un known) date) (RT-PCR) unknown) (unknown) (no (unknown) (unknown) Influenza Type A (units (unknown) date) (PCR) Not detected unknown) (unknown) (no (unknown) (unknown) Influenza Type A (units (unknown) date) (PCR) unknown) (unknown) (no (unknown) (unknown) Influenza Type B (units (unknown) date) (PCR) Not detected unknown) (unknown) (no (unknown) (unknown) Influenza Type B (units (unknown) date) (PCR) unknown) (unknown) (no (unknown) (unknown) [facility] (units (unknown) date) [address] unknown) [place] [address] (unknown) (no (unknown) (unknown) Laboratory Results (units (unknown) date) - last 24 hr unknown) (unknown) (no (unknown) (unknown) Labs (units (unkno wn) date) unknown) (unknown) (no (unknown) (unknown) Labs: (units (unkno wn) date) unknown) (unknown) (no (unknown) (unknown) Lungs: Clear to (units (unknown) date) auscultation unknown) (unknown) (no (unknown) (unknown) Lymph # (Auto) (units (unknown) date) 1000 L unknown) (unknown) (no (unknown) (unknown) Lymph # (Auto) (units (unknown) date) unknown) (unknown) (no (unknown) (unknown) Lymph % (Auto) (units (unknown) date) 21.3 L unknown) (unknown) (no (unknown) (unknown) Lymph % (Auto) (units (unknown) date) unknown) (unknown) (no (unknown) (unknown) M. pneumoniae (units ( unknown) date) (PCR) Not detected unknown) (unknown) (no (unknown) (unknown) M. pneumoniae (units ( unknown) date) (PCR) unknown) (unknown) (no (unknown) (unknown) [id number] (units (unk nown) date) unknown) (unknown) (no (unknown) (unknown) MCH 29.0 (units (unkno wn) date) unknown) (unknown) (no (unknown) (unknown) MCH (units (unkno wn) date) unknown) (unknown) (no (unknown) (unknown) MCHC 33.3 (units (unkn own) date) unknown) (unknown) (no (unknown) (unknown) MCHC (units (unkno wn) date) unknown) (unknown) (no (unknown) (unknown) MCV 87.1 (units (unkno wn) date) unknown) (unknown) (no (unknown) (unknown) MCV (units (unkno wn) date) unknown) (unknown) (no (unknown) (unknown) Magnesium 2.1 (units ( unknown) date) unknown) (unknown) (no (unknown) (unknown) Magnesium (units (unkn own) date) unknown) (unknown) (no (unknown) (unknown) Medical History (units (unknown) date) (Updated 02/07/22 @ unknown) 20:57 by Amelia Unger DO) (unknown) (no (unknown) (unknown) Butts # (Auto) 300 (units (unknown) date) unknown) (unknown) (no (unknown) (unknown) Butts # (Auto) (units ( unknown) date) unknown) (unknown) (no (unknown) (unknown) Butts % (Auto) 7.2 (units (unknown) date) unknown) (unknown) (no (unknown) (unknown) Butts % (Auto) (units ( unknown) date) unknown) (unknown) (no (unknown) (unknown) Narrative (units (unkn own) date) unknown) (unknown) (no (unknown) (unknown) Nasal Screen MRSA (units (unknown) date) (PCR) Negative for unknown) mrsa (unknown) (no (unknown) (unknown) Nasal Screen MRSA (units (unknown) date) (PCR) unknown) (unknown) (no (unknown) (unknown) Neck: Trachea (units ( unknown) date) midline, supple, no unknown) thyromegaly (unknown) (no (unknown) (unknown) Neurological: (units ( unknown) date) Nonverbal, no unknown) localizing signs (unknown) (no (unknown) (unknown) Neut # (Auto) 3400 (units (unknown) date) unknown) (unknown) (no (unknown) (unknown) Neut # (Auto) (units ( unknown) date) unknown) (unknown) (no (unknown) (unknown) Neut % (Auto) 71.2 (units (unknown) date) unknown) (unknown) (no (unknown) (unknown) Neut % (Auto) (units ( unknown) date) unknown) (unknown) (no (unknown) (unknown) Objective (units (unkn own) date) unknown) (unknown) (no (unknown) (unknown) Oxygen Delivery (units (unknown) date) Method Room Air unknown) (unknown) (no (unknown) (unknown) Oxygen Flow Rate 0 (units (unknown) date) unknown) (unknown) (no (unknown) (unknown) Oxygen Flow Rate (units (unknown) date) unknown) (unknown) (no (unknown) (unknown) PFSH (units (unkno wn) date) unknown) (unknown) (no (unknown) (unknown) Parainfluenza 1 (units (unknown) date) (PCR) Not detected unknown) (unknown) (no (unknown) (unknown) Parainfluenza 1 (units (unknown) date) (PCR) unknown) (unknown) (no (unknown) (unknown) Parainfluenza 2 (units (unknown) date) (PCR) Not detected unknown) (unknown) (no (unknown) (unknown) Parainfluenza 2 (units (unknown) date) (PCR) unknown) (unknown) (no (unknown) (unknown) Parainfluenza 3 (units (unknown) date) (PCR) Not detected unknown) (unknown) (no (unknown) (unknown) Parainfluenza 3 (units (unknown) date) (PCR) unknown) (unknown) (no (unknown) (unknown) Parainfluenza 4 (units (unknown) date) (PCR) Not detected unknown) (unknown) (no (unknown) (unknown) Parainfluenza 4 (units (unknown) date) (PCR) unknown) (unknown) (no (unknown) (unknown) Patient meets ICU (units (unknown) date) criteria due to unknown) septic shock. Total time of at least 60 (unknown) (no (unknown) (unknown) Patient: (units (unkno wn) date) Vanessa Mills B unknown) MR#: (unknown) (no (unknown) (unknown) Plt Count 115 L (units (unknown) date) unknown) (unknown) (no (unknown) (unknown) Plt Count (units (unkn own) date) unknown) (unknown) (no (unknown) (unknown) Potassium 3.0 L (units (unknown) date) unknown) (unknown) (no (unknown) (unknown) Potassium (units (unkn own) date) unknown) (unknown) (no (unknown) (unknown) Procalcitonin 0.87 (units (unknown) date) H unknown) (unknown) (no (unknown) (unknown) Procalcitonin 1.08 (units (unknown) date) H unknown) (unknown) (no (unknown) (unknown) Procalcitonin (units ( unknown) date) unknown) (unknown) (no (unknown) (unknown) Progress Note (units ( unknown) date) unknown) (unknown) (no (unknown) (unknown) Prolactin 33.7 H (units (unknown) date) unknown) (unknown) (no (unknown) (unknown) Prolactin (units (unkn own) date) unknown) (unknown) (no (unknown) (unknown) Provider: (units (unkn own) date) Yaakov Costa unknown) D.ODemarco (unknown) (no (unknown) (unknown) Pulse Oximetry 100 (units (unknown) date) 100 unknown) (unknown) (no (unknown) (unknown) Pulse Oximetry 100 (units (unknown) date) 99 unknown) (unknown) (no (unknown) (unknown) Pulse Oximetry 82 (units (unknown) date) L 97 unknown) (unknown) (no (unknown) (unknown) Pulse Oximetry 90 (units (unknown) date) L unknown) (unknown) (no (unknown) (unknown) Pulse Oximetry 92 (units (unknown) date) unknown) (unknown) (no (unknown) (unknown) Pulse Oximetry 98 (units (unknown) date) 99 unknown) (unknown) (no (unknown) (unknown) Pulse Oximetry 98 (units (unknown) date) unknown) (unknown) (no (unknown) (unknown) Pulse Oximetry 99 (units (unknown) date) 99 unknown) (unknown) (no (unknown) (unknown) Pulse Oximetry 99 (units (unknown) date) unknown) (unknown) (no (unknown) (unknown) Pulse Oximetry (units (unknown) date) unknown) (unknown) (no (unknown) (unknown) Pulse Rate 106 H (units (unknown) date) 87 unknown) (unknown) (no (unknown) (unknown) Pulse Rate 78 (units ( unknown) date) unknown) (unknown) (no (unknown) (unknown) Pulse Rate 81 97 H (units (unknown) date) unknown) (unknown) (no (unknown) (unknown) Pulse Rate 83 (units ( unknown) date) unknown) (unknown) (no (unknown) (unknown) Pulse Rate 86 (units ( unknown) date) unknown) (unknown) (no (unknown) (unknown) Pulse Rate 87 88 (units (unknown) date) unknown) (unknown) (no (unknown) (unknown) Pulse Rate 92 H 80 (units (unknown) date) unknown) (unknown) (no (unknown) (unknown) Pulse Rate 93 H (units (unknown) date) unknown) (unknown) (no (unknown) (unknown) Pulse Rate 95 H 79 (units (unknown) date) unknown) (unknown) (no (unknown) (unknown) Pulse Rate 96 H (units (unknown) date) unknown) (unknown) (no (unknown) (unknown) Quality (units (unkno wn) date) unknown) (unknown) (no (unknown) (unknown) RBC 3.22 L (units (unk nown) date) unknown) (unknown) (no (unknown) (unknown) RBC (units (unkno wn) date) unknown) (unknown) (no (unknown) (unknown) RDW 14.7 (units (unkno wn) date) unknown) (unknown) (no (unknown) (unknown) RDW (units (unkno wn) date) unknown) (unknown) (no (unknown) (unknown) RSV (PCR) Negative (units (unknown) date) unknown) (unknown) (no (unknown) (unknown) RSV (PCR) Not (units ( unknown) date) detected unknown) (unknown) (no (unknown) (unknown) RSV (PCR) (units (unkn own) date) unknown) (unknown) (no (unknown) (unknown) Respiratory Rate (units (unknown) date) 20 unknown) (unknown) (no (unknown) (unknown) Respiratory Rate (units (unknown) date) 24 43 H unknown) (unknown) (no (unknown) (unknown) Respiratory Rate (units (unknown) date) 29 H unknown) (unknown) (no (unknown) (unknown) Respiratory Rate (units (unknown) date) 34 H unknown) (unknown) (no (unknown) (unknown) Respiratory Rate (units (unknown) date) 36 H unknown) (unknown) (no (unknown) (unknown) Respiratory Rate (units (unknown) date) 37 H unknown) (unknown) (no (unknown) (unknown) Respiratory Rate (units (unknown) date) 40 H 19 unknown) (unknown) (no (unknown) (unknown) Respiratory Rate (units (unknown) date) 41 H 25 H unknown) (unknown) (no (unknown) (unknown) Respiratory Rate (units (unknown) date) 42 H 38 H unknown) (unknown) (no (unknown) (unknown) Respiratory Rate (units (unknown) date) 43 H 39 H unknown) (unknown) (no (unknown) (unknown) Respiratory Rate (units (unknown) date) 44 H unknown) (unknown) (no (unknown) (unknown) Result Diagrams: (units (unknown) date) unknown) (unknown) (no (unknown) (unknown) SARS-CoV-2 (PCR) (units (unknown) date) Negative unknown) (unknown) (no (unknown) (unknown) SARS-CoV-2 (PCR) (units (unknown) date) Not detected unknown) (unknown) (no (unknown) (unknown) SARS-CoV-2 (PCR) (units (unknown) date) unknown) (unknown) (no (unknown) (unknown) Schizophrenia (units ( unknown) date) unknown) (unknown) (no (unknown) (unknown) Signed By: (units (unk nown) date) unknown) (unknown) (no (unknown) (unknown) Smoking Status: (units (unknown) date) Never smoker unknown) (unknown) (no (unknown) (unknown) Social History (units (unknown) date) unknown) (unknown) (no (unknown) (unknown) Sodium 137 (units (unk nown) date) unknown) (unknown) (no (unknown) (unknown) Sodium (units (unkno wn) date) unknown) (unknown) (no (unknown) (unknown) Surrogate (units (unkn own) date) decisionmaker: Mom unknown) (unknown) (no (unknown) (unknown) Temperature 100.0 (units (unknown) date) F H 100.2 F H unknown) (unknown) (no (unknown) (unknown) Temperature 100.4 (units (unknown) date) F H unknown) (unknown) (no (unknown) (unknown) Temperature 100.6 (units (unknown) date) F H unknown) (unknown) (no (unknown) (unknown) Temperature 98.1 F (units (unknown) date) 98.6 F unknown) (unknown) (no (unknown) (unknown) Temperature 98.2 F (units (unknown) date) 98.4 F 98.4 F unknown) (unknown) (no (unknown) (unknown) Temperature 98.2 F (units (unknown) date) 98.6 F unknown) (unknown) (no (unknown) (unknown) Temperature 98.4 F (units (unknown) date) unknown) (unknown) (no (unknown) (unknown) Temperature 98.6 F (units (unknown) date) 98.4 F unknown) (unknown) (no (unknown) (unknown) Temperature 98.8 F (units (unknown) date) 98.4 F unknown) (unknown) (no (unknown) (unknown) Temperature 99.0 F (units (unknown) date) 98.1 F unknown) (unknown) (no (unknown) (unknown) Temperature 99.1 F (units (unknown) date) 99.5 F unknown) (unknown) (no (unknown) (unknown) Temperature 99.7 F (units (unknown) date) H unknown) (unknown) (no (unknown) (unknown) Time Spent With (units (unknown) date) Patient unknown) (unknown) (no (unknown) (unknown) Troponin I < 0.012 (units (unknown) date) unknown) (unknown) (no (unknown) (unknown) Troponin I (units (unk nown) date) unknown) (unknown) (no (unknown) (unknown) U Benzodiazepines (units (unknown) date) Scrn Negative unknown) (unknown) (no (unknown) (unknown) U Benzodiazepines (units (unknown) date) Scrn unknown) (unknown) (no (unknown) (unknown) U Marijuana (THC) (units (unknown) date) Screen Negative unknown) (unknown) (no (unknown) (unknown) U Marijuana (THC) (units (unknown) date) Screen unknown) (unknown) (no (unknown) (unknown) U Methamphetamines (units (unknown) date) Scrn Negative unknown) (unknown) (no (unknown) (unknown) U Methamphetamines (units (unknown) date) Scrn unknown) (unknown) (no (unknown) (unknown) U Opiates 300ng/mL (units (unknown) date) cut Negative unknown) (unknown) (no (unknown) (unknown) U Opiates 300ng/mL (units (unknown) date) cut unknown) (unknown) (no (unknown) (unknown) U Tricyclic (units (un known) date) Antidepress unknown) Negative (unknown) (no (unknown) (unknown) U Tricyclic (units (un known) date) Antidepress unknown) (unknown) (no (unknown) (unknown) Ur Amphetamines (units (unknown) date) Screen Negative unknown) (unknown) (no (unknown) (unknown) Ur Amphetamines (units (unknown) date) Screen unknown) (unknown) (no (unknown) (unknown) Ur Barbiturates (units (unknown) date) Screen Negative unknown) (unknown) (no (unknown) (unknown) Ur Barbiturates (units (unknown) date) Screen unknown) (unknown) (no (unknown) (unknown) Ur Culture (units (unk nown) date) Indicated? Cult not unknown) indicated (unknown) (no (unknown) (unknown) Ur Culture (units (unk nown) date) Indicated? unknown) (unknown) (no (unknown) (unknown) Ur MDMA Scrn (units (u nknown) date) (Ecstasy) Negative unknown) (unknown) (no (unknown) (unknown) Ur MDMA Scrn (units (u nknown) date) (Ecstasy) unknown) (unknown) (no (unknown) (unknown) Ur Oxycodone (units (u nknown) date) Screen Negative unknown) (unknown) (no (unknown) (unknown) Ur Oxycodone (units (u nknown) date) Screen unknown) (unknown) (no (unknown) (unknown) Ur Phencyclidine (units (unknown) date) Scrn Negative unknown) (unknown) (no (unknown) (unknown) Ur Phencyclidine (units (unknown) date) Scrn unknown) (unknown) (no (unknown) (unknown) Ur Squamous Epith (units (unknown) date) Cells 1-5 /hpf unknown) (unknown) (no (unknown) (unknown) Ur Squamous Epith (units (unknown) date) Cells unknown) (unknown) (no (unknown) (unknown) Ur Transition (units ( unknown) date) Epith Cell 0-1/hpf unknown) (unknown) (no (unknown) (unknown) Ur Transition (units ( unknown) date) Epith Cell unknown) (unknown) (no (unknown) (unknown) Urine Bacteria (units (unknown) date) None seen unknown) (unknown) (no (unknown) (unknown) Urine Bacteria (units (unknown) date) unknown) (unknown) (no (unknown) (unknown) Urine Cocaine (units ( unknown) date) Screen Negative unknown) (unknown) (no (unknown) (unknown) Urine Cocaine (units ( unknown) date) Screen unknown) (unknown) (no (unknown) (unknown) Urine Methadone (units (unknown) date) Screen Negative unknown) (unknown) (no (unknown) (unknown) Urine Methadone (units (unknown) date) Screen unknown) (unknown) (no (unknown) (unknown) Urine (units (unknown) date) Test Negative unknown) (unknown) (no (unknown) (unknown) Urine (units (unknown) date) Test unknown) (unknown) (no (unknown) (unknown) Urine RBC None (units (unknown) date) seen unknown) (unknown) (no (unknown) (unknown) Urine RBC (units (unkn own) date) unknown) (unknown) (no (unknown) (unknown) Urine WBC 1-5/hpf (units (unknown) date) unknown) (unknown) (no (unknown) (unknown) Urine WBC (units (unkn own) date) unknown) (unknown) (no (unknown) (unknown) VTE (units (unkno wn) date) unknown) (unknown) (no (unknown) (unknown) Vital Signs (units (un known) date) unknown) (unknown) (no (unknown) (unknown) WBC 4.7 (units (unkno wn) date) unknown) (unknown) (no (unknown) (unknown) WBC (units (unkno wn) date) unknown) (unknown) (no (unknown) (unknown) [Embedded Image (units (unknown) date) Not Available] unknown) (unknown) (no (unknown) (unknown) back of scalp, (units (unknown) date) paranasal areas, unknown) nape of neck. Also there is some crusting and (unknown) (no (unknown) (unknown) bedtime and (units (un known) date) increase fluoxetine unknown) from 10 mg to 20 mg daily (unknown) (no (unknown) (unknown) drainage from (units ( unknown) date) bilateral external unknown) ear areas. No erythema or tenderness over the (unknown) (no (unknown) (unknown) household members: (units (unknown) date) family unknown) (unknown) (no (unknown) (unknown) infiltrate (units (unk nown) date) unknown) (unknown) (no (unknown) (unknown) mastoids. No (units (u nknown) date) periorbital or unknown) facial edema. Pupils equal and reactive. (unknown) (no (unknown) (unknown) meets [place] (units (un known) date) criteria then unknown) obtain angio CT (unknown) (no (unknown) (unknown) minutes in (units (unk nown) date) critical care unknown) management. (unknown) (no (unknown) (unknown) patient not (units (un known) date) currently on unknown) anticoagulant (unknown) (no (unknown) (unknown) procalcitonin is (units (unknown) date) elevated unknown) (unknown) (no (unknown) (unknown) such as drug (units (u nknown) date) overdose, serotonin unknown) syndrome or acute PE (see below) (unknown) (no (unknown) (unknown) tenderness or (units ( unknown) date) erythema to suggest unknown) mastoiditis, no meningeal signs (unknown) (no (unknown) (unknown) the ED after (units (u nknown) date) standard fluid unknown) resuscitation (unknown) (no (unknown) (unknown) today; this time (units (unknown) date) is exclusive of unknown) procedural time. (unknown) (no (unknown) (unknown) x-ray (units (unkno wn) date) unknown) Result panel 480 (unknown) (no date) (unknown) (unknown) (no value) (units (un known) unknown) (unknown) (no date) (unknown) (unknown) NO GROWTH (units (unk nown) AFTER 24 unknown) HOURS Result panel 481 (unknown) (no date) (unknown) (unknown) Negative for (units ( unknown) MRSA unknown) Result panel 482 (unknown) (no date) (unknown) (unknown) 13.1 ug/ml (unkn own) Result panel 483 (unknown) (no date) (unknown) (unknown) (no value) (units (un known) unknown) (unknown) (no date) (unknown) (unknown) Light growth - (units (unknown) Mixed skin unknown) iman (unknown) (no date) (unknown) (unknown) No WBC seen (units (u nknown) unknown) (unknown) (no date) (unknown) (unknown) No WBC seen (units (u nknown) unknown) (unknown) (no date) (unknown) (unknown) Scant (units (unkn own) unknown) (unknown) (no date) (unknown) (unknown) Test not (units (unkn own) performed unknown) (unknown) (no date) (unknown) (unknown) Very Early (units (un known) Growth: Culture unknown) too young for work-up reincubated Result panel 484 (unknown) (no (unknown) (unknown) (no value) (units (unk nown) date) unknown) (unknown) (no (unknown) (unknown) (past 8 hours): (units (unknown) date) unknown) (unknown) (no (unknown) (unknown) -Continue Zosyn (units (unknown) date) and Vancomycin unknown) (unknown) (no (unknown) (unknown) -since no evidence (units (unknown) date) of PNA will d/c unknown) azithromycin (unknown) (no (unknown) (unknown) 00:30 02/08/22 (units (unknown) date) unknown) (unknown) (no (unknown) (unknown) 01:00 02/08/22 (units (unknown) date) unknown) (unknown) (no (unknown) (unknown) 01:00 (units (unkno wn) date) unknown) (unknown) (no (unknown) (unknown) 01:30 02/08/22 (units (unknown) date) unknown) (unknown) (no (unknown) (unknown) 01:30 (units (unkno wn) date) unknown) (unknown) (no (unknown) (unknown) 02:00 02/08/22 (units (unknown) date) unknown) (unknown) (no (unknown) (unknown) 02:30 02/08/22 (units (unknown) date) unknown) (unknown) (no (unknown) (unknown) 03:00 02/08/22 (units (unknown) date) unknown) (unknown) (no (unknown) (unknown) 03:00 (units (unkno wn) date) unknown) (unknown) (no (unknown) (unknown) 03:30 02/08/22 (units (unknown) date) unknown) (unknown) (no (unknown) (unknown) 03:30 (units (unkno wn) date) unknown) (unknown) (no (unknown) (unknown) 04:00 02/08/22 (units (unknown) date) unknown) (unknown) (no (unknown) (unknown) 04:30 02/08/22 (units (unknown) date) unknown) (unknown) (no (unknown) (unknown) 05:00 02/08/22 (units (unknown) date) unknown) (unknown) (no (unknown) (unknown) 05:00 (units (unkno wn) date) unknown) (unknown) (no (unknown) (unknown) 05:30 02/08/22 (units (unknown) date) unknown) (unknown) (no (unknown) (unknown) 05:30 (units (unkno wn) date) unknown) (unknown) (no (unknown) (unknown) 06:00 02/08/22 (units (unknown) date) unknown) (unknown) (no (unknown) (unknown) 06:30 02/08/22 (units (unknown) date) unknown) (unknown) (no (unknown) (unknown) 06:30 (units (unkno wn) date) unknown) (unknown) (no (unknown) (unknown) 07:00 02/08/22 (units (unknown) date) unknown) (unknown) (no (unknown) (unknown) 07:00 (units (unkno wn) date) unknown) (unknown) (no (unknown) (unknown) 07:30 02/08/22 (units (unknown) date) unknown) (unknown) (no (unknown) (unknown) 08:00 (units (unkno wn) date) unknown) (unknown) (no (unknown) (unknown) 08:22 08:22 08:22 (units (unknown) date) unknown) (unknown) (no (unknown) (unknown) 08:27 08:27 08:27 (units (unknown) date) unknown) (unknown) (no (unknown) (unknown) 08:27 08:42 09:20 (units (unknown) date) unknown) (unknown) (no (unknown) (unknown) 09:20 09:20 12:00 (units (unknown) date) unknown) (unknown) (no (unknown) (unknown) 02/07/22 02/07/22 (units (unknown) date) 02/07/22 unknown) (unknown) (no (unknown) (unknown) 02/07/22 02/08/22 (units (unknown) date) 02/08/22 unknown) (unknown) (no (unknown) (unknown) 02/07/22] (units (unkn own) date) unknown) (unknown) (no (unknown) (unknown) 02/08/22 02:08 (units (unknown) date) unknown) (unknown) (no (unknown) (unknown) 02/08/22 03:00 (units (unknown) date) unknown) (unknown) (no (unknown) (unknown) 02/08/22 (units (unkno wn) date) unknown) (unknown) (no (unknown) (unknown) 15:39 03:00 03:00 (units (unknown) date) unknown) (unknown) (no (unknown) (unknown) 17:27 (units (unkno wn) date) unknown) (unknown) (no (unknown) (unknown) 8 MCG/MIN (units (unkn own) date) unknown) (unknown) (no (unknown) (unknown) ALT 33 (units (unkno wn) date) unknown) (unknown) (no (unknown) (unknown) ALT (units (unkno wn) date) unknown) (unknown) (no (unknown) (unknown) AST 87 H (units (unkno wn) date) unknown) (unknown) (no (unknown) (unknown) AST (units (unkno wn) date) unknown) (unknown) (no (unknown) (unknown) Adenovirus (PCR) (units (unknown) date) Not detected unknown) (unknown) (no (unknown) (unknown) Adenovirus (PCR) (units (unknown) date) unknown) (unknown) (no (unknown) (unknown) Age/Sex: 31 / F (units (unknown) date) unknown) (unknown) (no (unknown) (unknown) Albumin 3.6 (units (un known) date) unknown) (unknown) (no (unknown) (unknown) Albumin (units (unkno wn) date) unknown) (unknown) (no (unknown) (unknown) Albumin/Globulin (units (unknown) date) Ratio 0.8 L unknown) (unknown) (no (unknown) (unknown) Albumin/Globulin (units (unknown) date) Ratio unknown) (unknown) (no (unknown) (unknown) Alkaline (units (unkno wn) date) Phosphatase 46 unknown) (unknown) (no (unknown) (unknown) Alkaline (units (unkno wn) date) Phosphatase unknown) (unknown) (no (unknown) (unknown) Assessment + Plan (units (unknown) date) narrative: unknown) (unknown) (no (unknown) (unknown) Assessment + Plan (units (unknown) date) unknown) (unknown) (no (unknown) (unknown) Assessment: (units (un known) date) unknown) (unknown) (no (unknown) (unknown) Azithromycin 500 (units (unknown) date) mg/ Dextrose 250 unknown) mls @ 250 mls/hr 02/07/22 15:45 02/07/22 (unknown) (no (unknown) (unknown) B. pertussis DNA (units (unknown) date) (PCR) Not detected unknown) (unknown) (no (unknown) (unknown) B. pertussis DNA (units (unknown) date) (PCR) unknown) (unknown) (no (unknown) (unknown) B.parapertussis (units (unknown) date) DNA PCR Not unknown) detected (unknown) (no (unknown) (unknown) B.parapertussis (units (unknown) date) DNA PCR unknown) (unknown) (no (unknown) (unknown) BEDTIME [place] (units (un known) date) unknown) (unknown) (no (unknown) (unknown) BUN 14 (units (unkno wn) date) unknown) (unknown) (no (unknown) (unknown) BUN 8 (units (unkno wn) date) unknown) (unknown) (no (unknown) (unknown) BUN (units (unkno wn) date) unknown) (unknown) (no (unknown) (unknown) BUN/Creatinine (units (unknown) date) Ratio 14.8 unknown) (unknown) (no (unknown) (unknown) BUN/Creatinine (units (unknown) date) Ratio 21.9 unknown) (unknown) (no (unknown) (unknown) BUN/Creatinine (units (unknown) date) Ratio unknown) (unknown) (no (unknown) (unknown) Baso # (Auto) 0 (units (unknown) date) unknown) (unknown) (no (unknown) (unknown) Baso # (Auto) (units ( unknown) date) unknown) (unknown) (no (unknown) (unknown) Baso % (Auto) 0.3 (units (unknown) date) unknown) (unknown) (no (unknown) (unknown) Baso % (Auto) 0.5 (units (unknown) date) unknown) (unknown) (no (unknown) (unknown) Baso % (Auto) (units ( unknown) date) unknown) (unknown) (no (unknown) (unknown) Blood Pressure (units (unknown) date) 101/67 104/62 unknown) (unknown) (no (unknown) (unknown) Blood Pressure (units (unknown) date) 105/63 unknown) (unknown) (no (unknown) (unknown) Blood Pressure (units (unknown) date) 82/53 L unknown) (unknown) (no (unknown) (unknown) Blood Pressure (units (unknown) date) 88/57 L 99/61 unknown) (unknown) (no (unknown) (unknown) Blood Pressure (units (unknown) date) 89/57 L 99/60 unknown) (unknown) (no (unknown) (unknown) Blood Pressure (units (unknown) date) 96/60 89/58 L unknown) (unknown) (no (unknown) (unknown) Blood Pressure (units (unknown) date) 97/62 unknown) (unknown) (no (unknown) (unknown) Blood Pressure (units (unknown) date) 98/60 98/60 unknown) (unknown) (no (unknown) (unknown) Blood Pressure (units (unknown) date) 98/60 99/61 unknown) (unknown) (no (unknown) (unknown) Blood Pressure (units (unknown) date) 98/60 99/62 unknown) (unknown) (no (unknown) (unknown) Blood Pressure (units (unknown) date) 98/61 unknown) (unknown) (no (unknown) (unknown) Blood Pressure (units (unknown) date) unknown) (unknown) (no (unknown) (unknown) CK-MB (CK-2) 2.02 (units (unknown) date) unknown) (unknown) (no (unknown) (unknown) CK-MB (CK-2) Rel (units (unknown) date) Index 0.2 L unknown) (unknown) (no (unknown) (unknown) CK-MB (CK-2) Rel (units (unknown) date) Index unknown) (unknown) (no (unknown) (unknown) CK-MB (CK-2) (units (u nknown) date) unknown) (unknown) (no (unknown) (unknown) Calcium 6.6 L (units ( unknown) date) unknown) (unknown) (no (unknown) (unknown) Calcium 8.3 L (units ( unknown) date) unknown) (unknown) (no (unknown) (unknown) Calcium (units (unkno wn) date) unknown) (unknown) (no (unknown) (unknown) Carbon Dioxide 23 (units (unknown) date) unknown) (unknown) (no (unknown) (unknown) Carbon Dioxide (units (unknown) date) unknown) (unknown) (no (unknown) (unknown) Chlamy pneumoniae (units (unknown) date) PCR Not detected unknown) (unknown) (no (unknown) (unknown) Chlamy pneumoniae (units (unknown) date) PCR unknown) (unknown) (no (unknown) (unknown) Chloride 107 (units (u nknown) date) unknown) (unknown) (no (unknown) (unknown) Chloride 99 (units (un known) date) unknown) (unknown) (no (unknown) (unknown) Chloride (units (unkno wn) date) unknown) (unknown) (no (unknown) (unknown) Consent obtained (units (unknown) date) for unknown) tele-anesthesia assistant care: Yes (unknown) (no (unknown) (unknown) Coronavirus 229E (units (unknown) date) (PCR) Not detected unknown) (unknown) (no (unknown) (unknown) Coronavirus 229E (units (unknown) date) (PCR) unknown) (unknown) (no (unknown) (unknown) Coronavirus HKU1 (units (unknown) date) (PCR) Not detected unknown) (unknown) (no (unknown) (unknown) Coronavirus HKU1 (units (unknown) date) (PCR) unknown) (unknown) (no (unknown) (unknown) Coronavirus NL63 (units (unknown) date) (PCR) Not detected unknown) (unknown) (no (unknown) (unknown) Coronavirus NL63 (units (unknown) date) (PCR) unknown) (unknown) (no (unknown) (unknown) Coronavirus OC43 (units (unknown) date) (PCR) Not detected unknown) (unknown) (no (unknown) (unknown) Coronavirus OC43 (units (unknown) date) (PCR) unknown) (unknown) (no (unknown) (unknown) Creatinine 0.54 (units (unknown) date) unknown) (unknown) (no (unknown) (unknown) Creatinine 0.64 (units (unknown) date) unknown) (unknown) (no (unknown) (unknown) Creatinine (units (unk nown) date) unknown) (unknown) (no (unknown) (unknown) Critical Care (units ( unknown) date) time: unknown) (unknown) (no (unknown) (unknown) Current (units (unkno wn) date) Medications unknown) (unknown) (no (unknown) (unknown) D-Dimer 2351 H (units (unknown) date) unknown) (unknown) (no (unknown) (unknown) D-Dimer (units (unkno wn) date) unknown) (unknown) (no (unknown) (unknown) : 1990 (units (unknown) date) Acct:[id number] unknown) (unknown) (no (unknown) (unknown) Date of Service: (units (unknown) date) 02/07/22 unknown) (unknown) (no (unknown) (unknown) Deep Vein (units (unkn own) date) Thrombosis/Pulmonar unknown) y Embolism Present on Admission: No (unknown) (no (unknown) (unknown) Diphenhydramine 50 (units (unknown) date) Mg/Ml Vial IV 25 mg unknown) (unknown) (no (unknown) (unknown) Diphenhydramine (units (unknown) date) HCl 25 mg 02/07/22 unknown) 22:50 02/08/22 05:27 (unknown) (no (unknown) (unknown) Entero/Rhino (PCR) (units (unknown) date) Not detected unknown) (unknown) (no (unknown) (unknown) Entero/Rhino (PCR) (units (unknown) date) unknown) (unknown) (no (unknown) (unknown) Eos # (Auto) 0 (units (unknown) date) unknown) (unknown) (no (unknown) (unknown) Eos # (Auto) (units (u nknown) date) unknown) (unknown) (no (unknown) (unknown) Eos % (Auto) 0.0 L (units (unknown) date) unknown) (unknown) (no (unknown) (unknown) Eos % (Auto) (units (u nknown) date) unknown) (unknown) (no (unknown) (unknown) Estimated GFR > 60 (units (unknown) date) unknown) (unknown) (no (unknown) (unknown) Estimated GFR (units ( unknown) date) unknown) (unknown) (no (unknown) (unknown) Exam (units (unkno wn) date) unknown) (unknown) (no (unknown) (unknown) Generic Name Dose (units (unknown) date) Route Start Last unknown) Admin (unknown) (no (unknown) (unknown) Globulin 4.3 H (units (unknown) date) unknown) (unknown) (no (unknown) (unknown) Globulin (units (unkno wn) date) unknown) (unknown) (no (unknown) (unknown) Glucose 113 H (units ( unknown) date) unknown) (unknown) (no (unknown) (unknown) Glucose 64 L (units (u nknown) date) unknown) (unknown) (no (unknown) (unknown) Glucose (units (unkno wn) date) unknown) (unknown) (no (unknown) (unknown) Hct 28.0 L (units (unk nown) date) unknown) (unknown) (no (unknown) (unknown) Hct 32.5 L (units (unk nown) date) unknown) (unknown) (no (unknown) (unknown) Hct (units (unkno wn) date) unknown) (unknown) (no (unknown) (unknown) Hgb 10.9 L (units (unk nown) date) unknown) (unknown) (no (unknown) (unknown) Hgb 9.3 L (units (unkn own) date) unknown) (unknown) (no (unknown) (unknown) Hgb (units (unkno wn) date) unknown) (unknown) (no (unknown) (unknown) Home Medications (units (unknown) date) unknown) (unknown) (no (unknown) (unknown) Human (units (unkno wn) date) Metapneumovir PCR unknown) Not detected (unknown) (no (unknown) (unknown) Human (units (unkno wn) date) Metapneumovir PCR unknown) (unknown) (no (unknown) (unknown) I spent a total of (units (unknown) date) [] minutes of unknown) critical care time on this patient's care (unknown) (no (unknown) (unknown) IF CAMERA (units (unkn own) date) ACTIVATED, patient unknown) seen via real-time interactive audiovisual (unknown) (no (unknown) (unknown) IV Infused (units (unk nown) date) unknown) (unknown) (no (unknown) (unknown) Influenza A (units (un known) date) (RT-PCR) Flu a unknown) negative (unknown) (no (unknown) (unknown) Influenza A (units (un known) date) (RT-PCR) unknown) (unknown) (no (unknown) (unknown) Influenza B (units (un known) date) (RT-PCR) Flu b unknown) negative (unknown) (no (unknown) (unknown) Influenza B (units (un known) date) (RT-PCR) unknown) (unknown) (no (unknown) (unknown) Influenza Type A (units (unknown) date) (PCR) Not detected unknown) (unknown) (no (unknown) (unknown) Influenza Type A (units (unknown) date) (PCR) unknown) (unknown) (no (unknown) (unknown) Influenza Type B (units (unknown) date) (PCR) Not detected unknown) (unknown) (no (unknown) (unknown) Influenza Type B (units (unknown) date) (PCR) unknown) (unknown) (no (unknown) (unknown) Interval history: (units (unknown) date) unknown) (unknown) (no (unknown) (unknown) [facility] (units (unknown) date) [address] unknown) [place] [address] (unknown) (no (unknown) (unknown) Itching (units (unkno wn) date) unknown) (unknown) (no (unknown) (unknown) Laboratory Results (units (unknown) date) - last 24 hr unknown) (unknown) (no (unknown) (unknown) Labs (units (unkno wn) date) unknown) (unknown) (no (unknown) (unknown) Labs: (units (unkno wn) date) unknown) (unknown) (no (unknown) (unknown) Lactate 1.6 (units (un known) date) unknown) (unknown) (no (unknown) (unknown) Lactate (units (unkno wn) date) unknown) (unknown) (no (unknown) (unknown) Levophed IV 0 (units ( unknown) date) mcg/min unknown) (unknown) (no (unknown) (unknown) Lymph # (Auto) (units (unknown) date) 1000 L unknown) (unknown) (no (unknown) (unknown) Lymph # (Auto) 900 (units (unknown) date) L unknown) (unknown) (no (unknown) (unknown) Lymph # (Auto) (units (unknown) date) unknown) (unknown) (no (unknown) (unknown) Lymph % (Auto) (units (unknown) date) 20.7 L unknown) (unknown) (no (unknown) (unknown) Lymph % (Auto) (units (unknown) date) 21.3 L unknown) (unknown) (no (unknown) (unknown) Lymph % (Auto) (units (unknown) date) unknown) (unknown) (no (unknown) (unknown) M. pneumoniae (units ( unknown) date) (PCR) Not detected unknown) (unknown) (no (unknown) (unknown) M. pneumoniae (units ( unknown) date) (PCR) unknown) (unknown) (no (unknown) (unknown) [id number] (units (unk nown) date) unknown) (unknown) (no (unknown) (unknown) MCH 28.7 (units (unkno wn) date) unknown) (unknown) (no (unknown) (unknown) MCH 29.0 (units (unkno wn) date) unknown) (unknown) (no (unknown) (unknown) MCH (units (unkno wn) date) unknown) (unknown) (no (unknown) (unknown) MCHC 33.3 (units (unkn own) date) unknown) (unknown) (no (unknown) (unknown) MCHC 33.5 (units (unkn own) date) unknown) (unknown) (no (unknown) (unknown) MCHC (units (unkno wn) date) unknown) (unknown) (no (unknown) (unknown) MCV 85.7 (units (unkno wn) date) unknown) (unknown) (no (unknown) (unknown) MCV 87.1 (units (unkno wn) date) unknown) (unknown) (no (unknown) (unknown) MCV (units (unkno wn) date) unknown) (unknown) (no (unknown) (unknown) Magnesium 2.1 (units ( unknown) date) unknown) (unknown) (no (unknown) (unknown) Magnesium (units (unkn own) date) unknown) (unknown) (no (unknown) (unknown) Medications: (units (u nknown) date) unknown) (unknown) (no (unknown) (unknown) Butts # (Auto) 300 (units (unknown) date) unknown) (unknown) (no (unknown) (unknown) Butts # (Auto) 500 (units (unknown) date) unknown) (unknown) (no (unknown) (unknown) Butts # (Auto) (units ( unknown) date) unknown) (unknown) (no (unknown) (unknown) Butts % (Auto) 10.1 (units (unknown) date) unknown) (unknown) (no (unknown) (unknown) Butts % (Auto) 7.2 (units (unknown) date) unknown) (unknown) (no (unknown) (unknown) Butts % (Auto) (units ( unknown) date) unknown) (unknown) (no (unknown) (unknown) NOREPINEPHRINE (units (unknown) date) BITARTRATE/D5W 4 mg unknown) in 250 mls @ 30 mls/hr 02/07/22 12:34 (unknown) (no (unknown) (unknown) Nasal Screen MRSA (units (unknown) date) (PCR) Negative for unknown) mrsa (unknown) (no (unknown) (unknown) Nasal Screen MRSA (units (unknown) date) (PCR) unknown) (unknown) (no (unknown) (unknown) Neut # (Auto) 3100 (units (unknown) date) unknown) (unknown) (no (unknown) (unknown) Neut # (Auto) 3400 (units (unknown) date) unknown) (unknown) (no (unknown) (unknown) Neut # (Auto) (units ( unknown) date) unknown) (unknown) (no (unknown) (unknown) Neut % (Auto) 68.7 (units (unknown) date) unknown) (unknown) (no (unknown) (unknown) Neut % (Auto) 71.2 (units (unknown) date) unknown) (unknown) (no (unknown) (unknown) Neut % (Auto) (units ( unknown) date) unknown) (unknown) (no (unknown) (unknown) Objective (units (unkn own) date) unknown) (unknown) (no (unknown) (unknown) Olanzapine 20 mg (units (unknown) date) 02/07/22 21:00 unknown) 02/07/22 21:50 (unknown) (no (unknown) (unknown) Olanzapine Odt 10 (units (unknown) date) Mg Tab PO Not Given unknown) (unknown) (no (unknown) (unknown) Other (units (unkno wn) date) participants/roles: unknown) RN, hospitalist (unknown) (no (unknown) (unknown) Oxygen Delivery (units (unknown) date) Method Room Air unknown) (unknown) (no (unknown) (unknown) Oxygen Flow Rate 0 (units (unknown) date) unknown) (unknown) (no (unknown) (unknown) Oxygen Flow Rate (units (unknown) date) unknown) (unknown) (no (unknown) (unknown) Parainfluenza 1 (units (unknown) date) (PCR) Not detected unknown) (unknown) (no (unknown) (unknown) Parainfluenza 1 (units (unknown) date) (PCR) unknown) (unknown) (no (unknown) (unknown) Parainfluenza 2 (units (unknown) date) (PCR) Not detected unknown) (unknown) (no (unknown) (unknown) Parainfluenza 2 (units (unknown) date) (PCR) unknown) (unknown) (no (unknown) (unknown) Parainfluenza 3 (units (unknown) date) (PCR) Not detected unknown) (unknown) (no (unknown) (unknown) Parainfluenza 3 (units (unknown) date) (PCR) unknown) (unknown) (no (unknown) (unknown) Parainfluenza 4 (units (unknown) date) (PCR) Not detected unknown) (unknown) (no (unknown) (unknown) Parainfluenza 4 (units (unknown) date) (PCR) unknown) (unknown) (no (unknown) (unknown) Patient Location: (units (unknown) date) ICU unknown) (unknown) (no (unknown) (unknown) Patient Summary: 31 (units (unknown) date) yo W with PMH of unknown) Schizophrenia (non-verbal), PE (prevniously (unknown) (no (unknown) (unknown) Patient: (units (unkno wn) date) [place] B unknown) MR#: (unknown) (no (unknown) (unknown) Piperacillin (units (u nknown) date) Sod/Tazobactam 100 unknown) mls @ 25 mls/hr 02/07/22 21:00 02/08/22 04:46 (unknown) (no (unknown) (unknown) Plan (units (unkno wn) date) unknown) (unknown) (no (unknown) (unknown) Plt Count 115 L (units (unknown) date) unknown) (unknown) (no (unknown) (unknown) Plt Count 155 (units ( unknown) date) unknown) (unknown) (no (unknown) (unknown) Plt Count (units (unkn own) date) unknown) (unknown) (no (unknown) (unknown) Potassium 3.0 L (units (unknown) date) unknown) (unknown) (no (unknown) (unknown) Potassium 3.6 (units ( unknown) date) unknown) (unknown) (no (unknown) (unknown) Potassium (units (unkn own) date) unknown) (unknown) (no (unknown) (unknown) Procalcitonin 0.87 (units (unknown) date) H unknown) (unknown) (no (unknown) (unknown) Procalcitonin 1.08 (units (unknown) date) H unknown) (unknown) (no (unknown) (unknown) Procalcitonin (units ( unknown) date) unknown) (unknown) (no (unknown) (unknown) Prolactin 33.7 H (units (unknown) date) unknown) (unknown) (no (unknown) (unknown) Prolactin (units (unkn own) date) unknown) (unknown) (no (unknown) (unknown) Protocol (units (unkno wn) date) unknown) (unknown) (no (unknown) (unknown) Provider location (units (unknown) date) (State): [place] unknown) (unknown) (no (unknown) (unknown) Provider: Alexander Cuevas (units (unknown) date) Radha MEYERS unknown) (unknown) (no (unknown) (unknown) Pulse Oximetry 100 (units (unknown) date) 90 L unknown) (unknown) (no (unknown) (unknown) Pulse Oximetry 100 (units (unknown) date) 99 unknown) (unknown) (no (unknown) (unknown) Pulse Oximetry 100 (units (unknown) date) unknown) (unknown) (no (unknown) (unknown) Pulse Oximetry 82 (units (unknown) date) L unknown) (unknown) (no (unknown) (unknown) Pulse Oximetry 92 (units (unknown) date) unknown) (unknown) (no (unknown) (unknown) Pulse Oximetry 97 (units (unknown) date) 99 unknown) (unknown) (no (unknown) (unknown) Pulse Oximetry 98 (units (unknown) date) unknown) (unknown) (no (unknown) (unknown) Pulse Oximetry 99 (units (unknown) date) 98 unknown) (unknown) (no (unknown) (unknown) Pulse Oximetry 99 (units (unknown) date) 99 unknown) (unknown) (no (unknown) (unknown) Pulse Oximetry 99 (units (unknown) date) unknown) (unknown) (no (unknown) (unknown) Pulse Oximetry (units (unknown) date) unknown) (unknown) (no (unknown) (unknown) Pulse Rate 106 H (units (unknown) date) unknown) (unknown) (no (unknown) (unknown) Pulse Rate 80 78 (units (unknown) date) unknown) (unknown) (no (unknown) (unknown) Pulse Rate 81 (units ( unknown) date) unknown) (unknown) (no (unknown) (unknown) Pulse Rate 86 (units ( unknown) date) unknown) (unknown) (no (unknown) (unknown) Pulse Rate 87 (units ( unknown) date) unknown) (unknown) (no (unknown) (unknown) Pulse Rate 88 96 H (units (unknown) date) unknown) (unknown) (no (unknown) (unknown) Pulse Rate 89 93 H (units (unknown) date) unknown) (unknown) (no (unknown) (unknown) Pulse Rate 92 H (units (unknown) date) unknown) (unknown) (no (unknown) (unknown) Pulse Rate 95 H 79 (units (unknown) date) unknown) (unknown) (no (unknown) (unknown) Pulse Rate 97 H 86 (units (unknown) date) unknown) (unknown) (no (unknown) (unknown) Q24H EVER[place]O Infusion (units (unknown) date) unknown) (unknown) (no (unknown) (unknown) Q4HR PRN (units (unkno wn) date) Administration unknown) (unknown) (no (unknown) (unknown) Q8H [place] (units (unkno wn) date) Administration unknown) (unknown) (no (unknown) (unknown) Q8H [place] Infusion (units (unknown) date) unknown) (unknown) (no (unknown) (unknown) Quality TeleICU (units (unknown) date) unknown) (unknown) (no (unknown) (unknown) RBC 3.22 L (units (unk nown) date) unknown) (unknown) (no (unknown) (unknown) RBC 3.79 L (units (unk nown) date) unknown) (unknown) (no (unknown) (unknown) RBC (units (unkno wn) date) unknown) (unknown) (no (unknown) (unknown) RDW 14.1 (units (unkno wn) date) unknown) (unknown) (no (unknown) (unknown) RDW 14.7 (units (unkno wn) date) unknown) (unknown) (no (unknown) (unknown) RDW (units (unkno wn) date) unknown) (unknown) (no (unknown) (unknown) RSV (PCR) Negative (units (unknown) date) unknown) (unknown) (no (unknown) (unknown) RSV (PCR) Not (units ( unknown) date) detected unknown) (unknown) (no (unknown) (unknown) RSV (PCR) (units (unkn own) date) unknown) (unknown) (no (unknown) (unknown) Recent events: (units (unknown) date) Patient off unknown) Levophed drip since 2 am. BP 90s/50s (unknown) (no (unknown) (unknown) Respiratory Rate (units (unknown) date) 24 unknown) (unknown) (no (unknown) (unknown) Respiratory Rate (units (unknown) date) 25 H 20 unknown) (unknown) (no (unknown) (unknown) Respiratory Rate (units (unknown) date) 29 H unknown) (unknown) (no (unknown) (unknown) Respiratory Rate (units (unknown) date) 34 H 34 H unknown) (unknown) (no (unknown) (unknown) Respiratory Rate (units (unknown) date) 36 H unknown) (unknown) (no (unknown) (unknown) Respiratory Rate (units (unknown) date) 38 H unknown) (unknown) (no (unknown) (unknown) Respiratory Rate (units (unknown) date) 39 H 44 H unknown) (unknown) (no (unknown) (unknown) Respiratory Rate (units (unknown) date) 40 H 19 unknown) (unknown) (no (unknown) (unknown) Respiratory Rate (units (unknown) date) 41 H unknown) (unknown) (no (unknown) (unknown) Respiratory Rate (units (unknown) date) 42 H unknown) (unknown) (no (unknown) (unknown) Respiratory Rate (units (unknown) date) 43 H 36 H unknown) (unknown) (no (unknown) (unknown) Respiratory Rate (units (unknown) date) 43 H unknown) (unknown) (no (unknown) (unknown) Result Diagrams: (units (unknown) date) unknown) (unknown) (no (unknown) (unknown) SARS-CoV-2 (PCR) (units (unknown) date) Negative unknown) (unknown) (no (unknown) (unknown) SARS-CoV-2 (PCR) (units (unknown) date) Not detected unknown) (unknown) (no (unknown) (unknown) SARS-CoV-2 (PCR) (units (unknown) date) unknown) (unknown) (no (unknown) (unknown) Schizophrenia (units ( unknown) date) unknown) (unknown) (no (unknown) (unknown) Septic Shock from (units (unknown) date) skin infection from unknown) picking (unknown) (no (unknown) (unknown) Signed By: (units (unk nown) date) unknown) (unknown) (no (unknown) (unknown) Sod 3.375 gm/ (units ( unknown) date) Sodium Chloride IV unknown) 25 mls/hr (unknown) (no (unknown) (unknown) Sodium 134 L (units (u nknown) date) unknown) (unknown) (no (unknown) (unknown) Sodium 137 (units (unk nown) date) unknown) (unknown) (no (unknown) (unknown) Sodium (units (unkno wn) date) unknown) (unknown) (no (unknown) (unknown) Subjective (units (unk nown) date) unknown) (unknown) (no (unknown) (unknown) TITRATE [place]O 0 (units ( unknown) date) mls/hr unknown) (unknown) (no (unknown) (unknown) 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 (units (unknown) date) Progress Note unknown) (unknown) (no (unknown) (unknown) Temperature 100.0 (units (unknown) date) F H unknown) (unknown) (no (unknown) (unknown) Temperature 100.2 (units (unknown) date) F H unknown) (unknown) (no (unknown) (unknown) Temperature 96.6 F (units (unknown) date) L 98.1 F unknown) (unknown) (no (unknown) (unknown) Temperature 98.1 F (units (unknown) date) 99.1 F unknown) (unknown) (no (unknown) (unknown) Temperature 98.2 F (units (unknown) date) 98.4 F unknown) (unknown) (no (unknown) (unknown) Temperature 98.4 F (units (unknown) date) 98.2 F unknown) (unknown) (no (unknown) (unknown) Temperature 98.4 F (units (unknown) date) 98.4 F unknown) (unknown) (no (unknown) (unknown) Temperature 98.6 F (units (unknown) date) 98.1 F 98.6 F unknown) (unknown) (no (unknown) (unknown) Temperature 98.6 F (units (unknown) date) 98.4 F unknown) (unknown) (no (unknown) (unknown) Temperature 98.6 F (units (unknown) date) 99.0 F unknown) (unknown) (no (unknown) (unknown) Temperature 98.8 F (units (unknown) date) unknown) (unknown) (no (unknown) (unknown) Temperature 99.5 F (units (unknown) date) 99.7 F H unknown) (unknown) (no (unknown) (unknown) Time Spent With (units (unknown) date) Patient unknown) (unknown) (no (unknown) (unknown) Titration (units (unkn own) date) unknown) (unknown) (no (unknown) (unknown) Total Bilirubin (units (unknown) date) 0.5 unknown) (unknown) (no (unknown) (unknown) Total Bilirubin (units (unknown) date) unknown) (unknown) (no (unknown) (unknown) Total Creatine (units (unknown) date) Kinase 825 H unknown) (unknown) (no (unknown) (unknown) Total Creatine (units (unknown) date) Kinase unknown) (unknown) (no (unknown) (unknown) Total Protein 7.9 (units (unknown) date) unknown) (unknown) (no (unknown) (unknown) Total Protein (units ( unknown) date) unknown) (unknown) (no (unknown) (unknown) Trade Name Freq (units (unknown) date) PRN Reason Stop unknown) Dose Admin (unknown) (no (unknown) (unknown) Troponin I < 0.012 (units (unknown) date) unknown) (unknown) (no (unknown) (unknown) Troponin I (units (unk nown) date) unknown) (unknown) (no (unknown) (unknown) U Benzodiazepines (units (unknown) date) Scrn Negative unknown) (unknown) (no (unknown) (unknown) U Benzodiazepines (units (unknown) date) Scrn unknown) (unknown) (no (unknown) (unknown) U Marijuana (THC) (units (unknown) date) Screen Negative unknown) (unknown) (no (unknown) (unknown) U Marijuana (THC) (units (unknown) date) Screen unknown) (unknown) (no (unknown) (unknown) U Methamphetamines (units (unknown) date) Scrn Negative unknown) (unknown) (no (unknown) (unknown) U Methamphetamines (units (unknown) date) Scrn unknown) (unknown) (no (unknown) (unknown) U Opiates 300ng/mL (units (unknown) date) cut Negative unknown) (unknown) (no (unknown) (unknown) U Opiates 300ng/mL (units (unknown) date) cut unknown) (unknown) (no (unknown) (unknown) U Tricyclic (units (un known) date) Antidepress unknown) Negative (unknown) (no (unknown) (unknown) U Tricyclic (units (un known) date) Antidepress unknown) (unknown) (no (unknown) (unknown) Ur Amphetamines (units (unknown) date) Screen Negative unknown) (unknown) (no (unknown) (unknown) Ur Amphetamines (units (unknown) date) Screen unknown) (unknown) (no (unknown) (unknown) Ur Barbiturates (units (unknown) date) Screen Negative unknown) (unknown) (no (unknown) (unknown) Ur Barbiturates (units (unknown) date) Screen unknown) (unknown) (no (unknown) (unknown) Ur Culture (units (unk nown) date) Indicated? Cult not unknown) indicated (unknown) (no (unknown) (unknown) Ur Culture (units (unk nown) date) Indicated? unknown) (unknown) (no (unknown) (unknown) Ur MDMA Scrn (units (u nknown) date) (Ecstasy) Negative unknown) (unknown) (no (unknown) (unknown) Ur MDMA Scrn (units (u nknown) date) (Ecstasy) unknown) (unknown) (no (unknown) (unknown) Ur Oxycodone (units (u nknown) date) Screen Negative unknown) (unknown) (no (unknown) (unknown) Ur Oxycodone (units (u nknown) date) Screen unknown) (unknown) (no (unknown) (unknown) Ur Phencyclidine (units (unknown) date) Scrn Negative unknown) (unknown) (no (unknown) (unknown) Ur Phencyclidine (units (unknown) date) Scrn unknown) (unknown) (no (unknown) (unknown) Ur Squamous Epith (units (unknown) date) Cells 1-5 /hpf unknown) (unknown) (no (unknown) (unknown) Ur Squamous Epith (units (unknown) date) Cells unknown) (unknown) (no (unknown) (unknown) Ur Transition (units ( unknown) date) Epith Cell 0-1/hpf unknown) (unknown) (no (unknown) (unknown) Ur Transition (units ( unknown) date) Epith Cell unknown) (unknown) (no (unknown) (unknown) Urine Bacteria (units (unknown) date) None seen unknown) (unknown) (no (unknown) (unknown) Urine Bacteria (units (unknown) date) unknown) (unknown) (no (unknown) (unknown) Urine Cocaine (units ( unknown) date) Screen Negative unknown) (unknown) (no (unknown) (unknown) Urine Cocaine (units ( unknown) date) Screen unknown) (unknown) (no (unknown) (unknown) Urine Methadone (units (unknown) date) Screen Negative unknown) (unknown) (no (unknown) (unknown) Urine Methadone (units (unknown) date) Screen unknown) (unknown) (no (unknown) (unknown) Urine (units (unknown) date) Test Negative unknown) (unknown) (no (unknown) (unknown) Urine (units (unknown) date) Test unknown) (unknown) (no (unknown) (unknown) Urine RBC None (units (unknown) date) seen unknown) (unknown) (no (unknown) (unknown) Urine RBC (units (unkn own) date) unknown) (unknown) (no (unknown) (unknown) Urine WBC 1-5/hpf (units (unknown) date) unknown) (unknown) (no (unknown) (unknown) Urine WBC (units (unkn own) date) unknown) (unknown) (no (unknown) (unknown) VTE (units (unkno wn) date) unknown) (unknown) (no (unknown) (unknown) Vancomycin HCl 750 (units (unknown) date) mg in 150 mls @ 150 unknown) mls/hr 02/07/22 18:00 02/08/22 03:04 (unknown) (no (unknown) (unknown) Vancomycin IV (units ( unknown) date) Infused unknown) (unknown) (no (unknown) (unknown) Visit Medications (units (unknown) date) (administered) unknown) (unknown) (no (unknown) (unknown) Vital Signs (units (un known) date) unknown) (unknown) (no (unknown) (unknown) WBC 4.5 (units (unkno wn) date) unknown) (unknown) (no (unknown) (unknown) WBC 4.7 (units (unkno wn) date) unknown) (unknown) (no (unknown) (unknown) WBC (units (unkno wn) date) unknown) (unknown) (no (unknown) (unknown) [Embedded Image (units (unknown) date) Not Available] unknown) (unknown) (no (unknown) (unknown) antibiotics and (units (unknown) date) Levophed drip. CTA unknown) neg for PE. (unknown) (no (unknown) (unknown) communication: (units (unknown) date) Camera activated unknown) (unknown) (no (unknown) (unknown) olanzapine 15 mg (units (unknown) date) tablet 15 mg PO unknown) BEDTIME #90 tabs 09/23/20 [Rx Confirmed (unknown) (no (unknown) (unknown) on AC many years (units (unknown) date) ago, s/p IVC unknown) filter, unclear if removed) was admitted 02/07/22 (unknown) (no (unknown) (unknown) today; this time (units (unknown) date) is exclusive of unknown) procedural time. (unknown) (no (unknown) (unknown) with septic shock (units (unknown) date) from skin infection unknown) (from picking?). Pt. placed on Result panel 485 (unknown) (no (unknown) (unknown) (no value) (units (unk nown) date) unknown) (unknown) (no (unknown) (unknown) (past 8 hours): (units (unknown) date) unknown) (unknown) (no (unknown) (unknown) -Continue Zosyn (units (unknown) date) and Vancomycin unknown) (unknown) (no (unknown) (unknown) -continue home (units (unknown) date) olanzapine for unknown) schizophrenia (unknown) (no (unknown) (unknown) -since no evidence (units (unknown) date) of PNA will d/c unknown) azithromycin (unknown) (no (unknown) (unknown) -wound doctor (units ( unknown) date) consult unknown) (unknown) (no (unknown) (unknown) 00:30 02/08/22 (units (unknown) date) unknown) (unknown) (no (unknown) (unknown) 01:00 02/08/22 (units (unknown) date) unknown) (unknown) (no (unknown) (unknown) 01:00 (units (unkno wn) date) unknown) (unknown) (no (unknown) (unknown) 01:30 02/08/22 (units (unknown) date) unknown) (unknown) (no (unknown) (unknown) 01:30 (units (unkno wn) date) unknown) (unknown) (no (unknown) (unknown) 02:00 02/08/22 (units (unknown) date) unknown) (unknown) (no (unknown) (unknown) 02:30 02/08/22 (units (unknown) date) unknown) (unknown) (no (unknown) (unknown) 03:00 02/08/22 (units (unknown) date) unknown) (unknown) (no (unknown) (unknown) 03:00 (units (unkno wn) date) unknown) (unknown) (no (unknown) (unknown) 03:30 02/08/22 (units (unknown) date) unknown) (unknown) (no (unknown) (unknown) 03:30 (units (unkno wn) date) unknown) (unknown) (no (unknown) (unknown) 04:00 02/08/22 (units (unknown) date) unknown) (unknown) (no (unknown) (unknown) 04:30 02/08/22 (units (unknown) date) unknown) (unknown) (no (unknown) (unknown) 05:00 02/08/22 (units (unknown) date) unknown) (unknown) (no (unknown) (unknown) 05:00 (units (unkno wn) date) unknown) (unknown) (no (unknown) (unknown) 05:30 02/08/22 (units (unknown) date) unknown) (unknown) (no (unknown) (unknown) 05:30 (units (unkno wn) date) unknown) (unknown) (no (unknown) (unknown) 06:00 02/08/22 (units (unknown) date) unknown) (unknown) (no (unknown) (unknown) 06:30 02/08/22 (units (unknown) date) unknown) (unknown) (no (unknown) (unknown) 06:30 (units (unkno wn) date) unknown) (unknown) (no (unknown) (unknown) 07:00 02/08/22 (units (unknown) date) unknown) (unknown) (no (unknown) (unknown) 07:00 (units (unkno wn) date) unknown) (unknown) (no (unknown) (unknown) 07:30 02/08/22 (units (unknown) date) unknown) (unknown) (no (unknown) (unknown) 08:00 (units (unkno wn) date) unknown) (unknown) (no (unknown) (unknown) 08:22 08:22 08:22 (units (unknown) date) unknown) (unknown) (no (unknown) (unknown) 08:27 08:27 08:27 (units (unknown) date) unknown) (unknown) (no (unknown) (unknown) 08:27 08:42 09:20 (units (unknown) date) unknown) (unknown) (no (unknown) (unknown) 09:20 09:20 12:00 (units (unknown) date) unknown) (unknown) (no (unknown) (unknown) 02/07/22 02/07/22 (units (unknown) date) 02/07/22 unknown) (unknown) (no (unknown) (unknown) 02/07/22 02/08/22 (units (unknown) date) 02/08/22 unknown) (unknown) (no (unknown) (unknown) 02/07/22] (units (unkn own) date) unknown) (unknown) (no (unknown) (unknown) 02/08/22 02:08 (units (unknown) date) unknown) (unknown) (no (unknown) (unknown) 02/08/22 03:00 (units (unknown) date) unknown) (unknown) (no (unknown) (unknown) 02/08/22 1039 (units ( unknown) date) unknown) (unknown) (no (unknown) (unknown) 02/08/22 (units (unkno wn) date) unknown) (unknown) (no (unknown) (unknown) 15:39 03:00 03:00 (units (unknown) date) unknown) (unknown) (no (unknown) (unknown) 17:27 (units (unkno wn) date) unknown) (unknown) (no (unknown) (unknown) 8 MCG/MIN (units (unkn own) date) unknown) (unknown) (no (unknown) (unknown) ALT 33 (units (unkno wn) date) unknown) (unknown) (no (unknown) (unknown) ALT (units (unkno wn) date) unknown) (unknown) (no (unknown) (unknown) AST 87 H (units (unkno wn) date) unknown) (unknown) (no (unknown) (unknown) AST (units (unkno wn) date) unknown) (unknown) (no (unknown) (unknown) Adenovirus (PCR) (units (unknown) date) Not detected unknown) (unknown) (no (unknown) (unknown) Adenovirus (PCR) (units (unknown) date) unknown) (unknown) (no (unknown) (unknown) Age/Sex: 31 / F (units (unknown) date) unknown) (unknown) (no (unknown) (unknown) Albumin 3.6 (units (un known) date) unknown) (unknown) (no (unknown) (unknown) Albumin (units (unkno wn) date) unknown) (unknown) (no (unknown) (unknown) Albumin/Globulin (units (unknown) date) Ratio 0.8 L unknown) (unknown) (no (unknown) (unknown) Albumin/Globulin (units (unknown) date) Ratio unknown) (unknown) (no (unknown) (unknown) Alkaline (units (unkno wn) date) Phosphatase 46 unknown) (unknown) (no (unknown) (unknown) Alkaline (units (unkno wn) date) Phosphatase unknown) (unknown) (no (unknown) (unknown) Assessment + Plan (units (unknown) date) narrative: unknown) (unknown) (no (unknown) (unknown) Assessment + Plan (units (unknown) date) unknown) (unknown) (no (unknown) (unknown) Assessment: (units (un known) date) unknown) (unknown) (no (unknown) (unknown) Azithromycin 500 (units (unknown) date) mg/ Dextrose 250 unknown) mls @ 250 mls/hr 02/07/22 15:45 02/07/22 (unknown) (no (unknown) (unknown) B. pertussis DNA (units (unknown) date) (PCR) Not detected unknown) (unknown) (no (unknown) (unknown) B. pertussis DNA (units (unknown) date) (PCR) unknown) (unknown) (no (unknown) (unknown) B.parapertussis (units (unknown) date) DNA PCR Not unknown) detected (unknown) (no (unknown) (unknown) B.parapertussis (units (unknown) date) DNA PCR unknown) (unknown) (no (unknown) (unknown) BEDTIME [place] (units (un known) date) unknown) (unknown) (no (unknown) (unknown) BUN 14 (units (unkno wn) date) unknown) (unknown) (no (unknown) (unknown) BUN 8 (units (unkno wn) date) unknown) (unknown) (no (unknown) (unknown) BUN (units (unkno wn) date) unknown) (unknown) (no (unknown) (unknown) BUN/Creatinine (units (unknown) date) Ratio 14.8 unknown) (unknown) (no (unknown) (unknown) BUN/Creatinine (units (unknown) date) Ratio 21.9 unknown) (unknown) (no (unknown) (unknown) BUN/Creatinine (units (unknown) date) Ratio unknown) (unknown) (no (unknown) (unknown) Baso # (Auto) 0 (units (unknown) date) unknown) (unknown) (no (unknown) (unknown) Baso # (Auto) (units ( unknown) date) unknown) (unknown) (no (unknown) (unknown) Baso % (Auto) 0.3 (units (unknown) date) unknown) (unknown) (no (unknown) (unknown) Baso % (Auto) 0.5 (units (unknown) date) unknown) (unknown) (no (unknown) (unknown) Baso % (Auto) (units ( unknown) date) unknown) (unknown) (no (unknown) (unknown) Blood Pressure (units (unknown) date) 101/67 104/62 unknown) (unknown) (no (unknown) (unknown) Blood Pressure (units (unknown) date) 105/63 unknown) (unknown) (no (unknown) (unknown) Blood Pressure (units (unknown) date) 82/53 L unknown) (unknown) (no (unknown) (unknown) Blood Pressure (units (unknown) date) 88/57 L 99/61 unknown) (unknown) (no (unknown) (unknown) Blood Pressure (units (unknown) date) 89/57 L 99/60 unknown) (unknown) (no (unknown) (unknown) Blood Pressure (units (unknown) date) 96/60 89/58 L unknown) (unknown) (no (unknown) (unknown) Blood Pressure (units (unknown) date) 97/62 unknown) (unknown) (no (unknown) (unknown) Blood Pressure (units (unknown) date) 98/60 98/60 unknown) (unknown) (no (unknown) (unknown) Blood Pressure (units (unknown) date) 98/60 99/61 unknown) (unknown) (no (unknown) (unknown) Blood Pressure (units (unknown) date) 98/60 99/62 unknown) (unknown) (no (unknown) (unknown) Blood Pressure (units (unknown) date) 98/61 unknown) (unknown) (no (unknown) (unknown) Blood Pressure (units (unknown) date) unknown) (unknown) (no (unknown) (unknown) CCT spent 45 min (units (unknown) date) unknown) (unknown) (no (unknown) (unknown) CK-MB (CK-2) 2.02 (units (unknown) date) unknown) (unknown) (no (unknown) (unknown) CK-MB (CK-2) Rel (units (unknown) date) Index 0.2 L unknown) (unknown) (no (unknown) (unknown) CK-MB (CK-2) Rel (units (unknown) date) Index unknown) (unknown) (no (unknown) (unknown) CK-MB (CK-2) (units (u nknown) date) unknown) (unknown) (no (unknown) (unknown) Calcium 6.6 L (units ( unknown) date) unknown) (unknown) (no (unknown) (unknown) Calcium 8.3 L (units ( unknown) date) unknown) (unknown) (no (unknown) (unknown) Calcium (units (unkno wn) date) unknown) (unknown) (no (unknown) (unknown) Carbon Dioxide 23 (units (unknown) date) unknown) (unknown) (no (unknown) (unknown) Carbon Dioxide (units (unknown) date) unknown) (unknown) (no (unknown) (unknown) Chlamy pneumoniae (units (unknown) date) PCR Not detected unknown) (unknown) (no (unknown) (unknown) Chlamy pneumoniae (units (unknown) date) PCR unknown) (unknown) (no (unknown) (unknown) Chloride 107 (units (u nknown) date) unknown) (unknown) (no (unknown) (unknown) Chloride 99 (units (un known) date) unknown) (unknown) (no (unknown) (unknown) Chloride (units (unkno wn) date) unknown) (unknown) (no (unknown) (unknown) Consent obtained (units (unknown) date) for unknown) tele-anesthesia assistant care: Yes (unknown) (no (unknown) (unknown) Coronavirus 229E (units (unknown) date) (PCR) Not detected unknown) (unknown) (no (unknown) (unknown) Coronavirus 229E (units (unknown) date) (PCR) unknown) (unknown) (no (unknown) (unknown) Coronavirus HKU1 (units (unknown) date) (PCR) Not detected unknown) (unknown) (no (unknown) (unknown) Coronavirus HKU1 (units (unknown) date) (PCR) unknown) (unknown) (no (unknown) (unknown) Coronavirus NL63 (units (unknown) date) (PCR) Not detected unknown) (unknown) (no (unknown) (unknown) Coronavirus NL63 (units (unknown) date) (PCR) unknown) (unknown) (no (unknown) (unknown) Coronavirus OC43 (units (unknown) date) (PCR) Not detected unknown) (unknown) (no (unknown) (unknown) Coronavirus OC43 (units (unknown) date) (PCR) unknown) (unknown) (no (unknown) (unknown) Creatinine 0.54 (units (unknown) date) unknown) (unknown) (no (unknown) (unknown) Creatinine 0.64 (units (unknown) date) unknown) (unknown) (no (unknown) (unknown) Creatinine (units (unk nown) date) unknown) (unknown) (no (unknown) (unknown) Critical Care (units ( unknown) date) time: unknown) (unknown) (no (unknown) (unknown) Current (units (unkno wn) date) Medications unknown) (unknown) (no (unknown) (unknown) D-Dimer 2351 H (units (unknown) date) unknown) (unknown) (no (unknown) (unknown) D-Dimer (units (unkno wn) date) unknown) (unknown) (no (unknown) (unknown) : 1990 (units (unknown) date) Acct:[id number] unknown) (unknown) (no (unknown) (unknown) Date of Service: (units (unknown) date) 02/07/22 unknown) (unknown) (no (unknown) (unknown) Deep Vein (units (unkn own) date) Thrombosis/Pulmonar unknown) y Embolism Present on Admission: No (unknown) (no (unknown) (unknown) Diphenhydramine 50 (units (unknown) date) Mg/Ml Vial IV 25 mg unknown) (unknown) (no (unknown) (unknown) Diphenhydramine (units (unknown) date) HCl 25 mg 02/07/22 unknown) 22:50 02/08/22 05:27 (unknown) (no (unknown) (unknown) Entero/Rhino (PCR) (units (unknown) date) Not detected unknown) (unknown) (no (unknown) (unknown) Entero/Rhino (PCR) (units (unknown) date) unknown) (unknown) (no (unknown) (unknown) Eos # (Auto) 0 (units (unknown) date) unknown) (unknown) (no (unknown) (unknown) Eos # (Auto) (units (u nknown) date) unknown) (unknown) (no (unknown) (unknown) Eos % (Auto) 0.0 L (units (unknown) date) unknown) (unknown) (no (unknown) (unknown) Eos % (Auto) (units (u nknown) date) unknown) (unknown) (no (unknown) (unknown) Estimated GFR > 60 (units (unknown) date) unknown) (unknown) (no (unknown) (unknown) Estimated GFR (units ( unknown) date) unknown) (unknown) (no (unknown) (unknown) Exam Narrative: (units (unknown) date) unknown) (unknown) (no (unknown) (unknown) Exam (units (unkno wn) date) unknown) (unknown) (no (unknown) (unknown) Generic Name Dose (units (unknown) date) Route Start Last unknown) Admin (unknown) (no (unknown) (unknown) Globulin 4.3 H (units (unknown) date) unknown) (unknown) (no (unknown) (unknown) Globulin (units (unkno wn) date) unknown) (unknown) (no (unknown) (unknown) Glucose 113 H (units ( unknown) date) unknown) (unknown) (no (unknown) (unknown) Glucose 64 L (units (u nknown) date) unknown) (unknown) (no (unknown) (unknown) Glucose (units (unkno wn) date) unknown) (unknown) (no (unknown) (unknown) Hct 28.0 L (units (unk nown) date) unknown) (unknown) (no (unknown) (unknown) Hct 32.5 L (units (unk nown) date) unknown) (unknown) (no (unknown) (unknown) Hct (units (unkno wn) date) unknown) (unknown) (no (unknown) (unknown) Hgb 10.9 L (units (unk nown) date) unknown) (unknown) (no (unknown) (unknown) Hgb 9.3 L (units (unkn own) date) unknown) (unknown) (no (unknown) (unknown) Hgb (units (unkno wn) date) unknown) (unknown) (no (unknown) (unknown) Home Medications (units (unknown) date) unknown) (unknown) (no (unknown) (unknown) Human (units (unkno wn) date) Metapneumovir PCR unknown) Not detected (unknown) (no (unknown) (unknown) Human (units (unkno wn) date) Metapneumovir PCR unknown) (unknown) (no (unknown) (unknown) I spent a total of (units (unknown) date) [] minutes of unknown) critical care time on this patient's care (unknown) (no (unknown) (unknown) IF CAMERA (units (unkn own) date) ACTIVATED, patient unknown) seen via real-time interactive audiovisual (unknown) (no (unknown) (unknown) IV Infused (units (unk nown) date) unknown) (unknown) (no (unknown) (unknown) If patient's BP (units (unknown) date) remains stable off unknown) Pressors can consider transferring patinet (unknown) (no (unknown) (unknown) Influenza A (units (un known) date) (RT-PCR) Flu a unknown) negative (unknown) (no (unknown) (unknown) Influenza A (units (un known) date) (RT-PCR) unknown) (unknown) (no (unknown) (unknown) Influenza B (units (un known) date) (RT-PCR) Flu b unknown) negative (unknown) (no (unknown) (unknown) Influenza B (units (un known) date) (RT-PCR) unknown) (unknown) (no (unknown) (unknown) Influenza Type A (units (unknown) date) (PCR) Not detected unknown) (unknown) (no (unknown) (unknown) Influenza Type A (units (unknown) date) (PCR) unknown) (unknown) (no (unknown) (unknown) Influenza Type B (units (unknown) date) (PCR) Not detected unknown) (unknown) (no (unknown) (unknown) Influenza Type B (units (unknown) date) (PCR) unknown) (unknown) (no (unknown) (unknown) Interval history: (units (unknown) date) unknown) (unknown) (no (unknown) (unknown) [facility] (units (unknown) date) [address] unknown) [place] [address] (unknown) (no (unknown) (unknown) Itching (units (unkno wn) date) unknown) (unknown) (no (unknown) (unknown) Laboratory Results (units (unknown) date) - last 24 hr unknown) (unknown) (no (unknown) (unknown) Labs (units (unkno wn) date) unknown) (unknown) (no (unknown) (unknown) Labs: (units (unkno wn) date) unknown) (unknown) (no (unknown) (unknown) Lactate 1.6 (units (un known) date) unknown) (unknown) (no (unknown) (unknown) Lactate (units (unkno wn) date) unknown) (unknown) (no (unknown) (unknown) Levophed IV 0 (units ( unknown) date) mcg/min unknown) (unknown) (no (unknown) (unknown) Lymph # (Auto) (units (unknown) date) 1000 L unknown) (unknown) (no (unknown) (unknown) Lymph # (Auto) 900 (units (unknown) date) L unknown) (unknown) (no (unknown) (unknown) Lymph # (Auto) (units (unknown) date) unknown) (unknown) (no (unknown) (unknown) Lymph % (Auto) (units (unknown) date) 20.7 L unknown) (unknown) (no (unknown) (unknown) Lymph % (Auto) (units (unknown) date) 21.3 L unknown) (unknown) (no (unknown) (unknown) Lymph % (Auto) (units (unknown) date) unknown) (unknown) (no (unknown) (unknown) M. pneumoniae (units ( unknown) date) (PCR) Not detected unknown) (unknown) (no (unknown) (unknown) M. pneumoniae (units ( unknown) date) (PCR) unknown) (unknown) (no (unknown) (unknown) [id number] (units (unk nown) date) unknown) (unknown) (no (unknown) (unknown) MCH 28.7 (units (unkno wn) date) unknown) (unknown) (no (unknown) (unknown) MCH 29.0 (units (unkno wn) date) unknown) (unknown) (no (unknown) (unknown) MCH (units (unkno wn) date) unknown) (unknown) (no (unknown) (unknown) MCHC 33.3 (units (unkn own) date) unknown) (unknown) (no (unknown) (unknown) MCHC 33.5 (units (unkn own) date) unknown) (unknown) (no (unknown) (unknown) MCHC (units (unkno wn) date) unknown) (unknown) (no (unknown) (unknown) MCV 85.7 (units (unkno wn) date) unknown) (unknown) (no (unknown) (unknown) MCV 87.1 (units (unkno wn) date) unknown) (unknown) (no (unknown) (unknown) MCV (units (unkno wn) date) unknown) (unknown) (no (unknown) (unknown) Magnesium 2.1 (units ( unknown) date) unknown) (unknown) (no (unknown) (unknown) Magnesium (units (unkn own) date) unknown) (unknown) (no (unknown) (unknown) Medications: (units (u nknown) date) unknown) (unknown) (no (unknown) (unknown) Butts # (Auto) 300 (units (unknown) date) unknown) (unknown) (no (unknown) (unknown) Butts # (Auto) 500 (units (unknown) date) unknown) (unknown) (no (unknown) (unknown) Butts # (Auto) (units ( unknown) date) unknown) (unknown) (no (unknown) (unknown) Butts % (Auto) 10.1 (units (unknown) date) unknown) (unknown) (no (unknown) (unknown) Butts % (Auto) 7.2 (units (unknown) date) unknown) (unknown) (no (unknown) (unknown) Butts % (Auto) (units ( unknown) date) unknown) (unknown) (no (unknown) (unknown) NOREPINEPHRINE (units (unknown) date) BITARTRATE/D5W 4 mg unknown) in 250 mls @ 30 mls/hr 02/07/22 12:34 (unknown) (no (unknown) (unknown) Narrative (units (unkn own) date) unknown) (unknown) (no (unknown) (unknown) Nasal Screen MRSA (units (unknown) date) (PCR) Negative for unknown) mrsa (unknown) (no (unknown) (unknown) Nasal Screen MRSA (units (unknown) date) (PCR) unknown) (unknown) (no (unknown) (unknown) Neut # (Auto) 3100 (units (unknown) date) unknown) (unknown) (no (unknown) (unknown) Neut # (Auto) 3400 (units (unknown) date) unknown) (unknown) (no (unknown) (unknown) Neut # (Auto) (units ( unknown) date) unknown) (unknown) (no (unknown) (unknown) Neut % (Auto) 68.7 (units (unknown) date) unknown) (unknown) (no (unknown) (unknown) Neut % (Auto) 71.2 (units (unknown) date) unknown) (unknown) (no (unknown) (unknown) Neut % (Auto) (units ( unknown) date) unknown) (unknown) (no (unknown) (unknown) Objective (units (unkn own) date) unknown) (unknown) (no (unknown) (unknown) Olanzapine 20 mg (units (unknown) date) 02/07/22 21:00 unknown) 02/07/22 21:50 (unknown) (no (unknown) (unknown) Olanzapine Odt 10 (units (unknown) date) Mg Tab PO Not Given unknown) (unknown) (no (unknown) (unknown) Other (units (unkno wn) date) participants/roles: unknown) RN, hospitalist (unknown) (no (unknown) (unknown) Oxygen Delivery (units (unknown) date) Method Room Air unknown) (unknown) (no (unknown) (unknown) Oxygen Flow Rate 0 (units (unknown) date) unknown) (unknown) (no (unknown) (unknown) Oxygen Flow Rate (units (unknown) date) unknown) (unknown) (no (unknown) (unknown) PPx: lovenox (units (u nknown) date) unknown) (unknown) (no (unknown) (unknown) Parainfluenza 1 (units (unknown) date) (PCR) Not detected unknown) (unknown) (no (unknown) (unknown) Parainfluenza 1 (units (unknown) date) (PCR) unknown) (unknown) (no (unknown) (unknown) Parainfluenza 2 (units (unknown) date) (PCR) Not detected unknown) (unknown) (no (unknown) (unknown) Parainfluenza 2 (units (unknown) date) (PCR) unknown) (unknown) (no (unknown) (unknown) Parainfluenza 3 (units (unknown) date) (PCR) Not detected unknown) (unknown) (no (unknown) (unknown) Parainfluenza 3 (units (unknown) date) (PCR) unknown) (unknown) (no (unknown) (unknown) Parainfluenza 4 (units (unknown) date) (PCR) Not detected unknown) (unknown) (no (unknown) (unknown) Parainfluenza 4 (units (unknown) date) (PCR) unknown) (unknown) (no (unknown) (unknown) Patient Location: (units (unknown) date) ICU unknown) (unknown) (no (unknown) (unknown) Patient Summary: 31 (units (unknown) date) yo W with PMH of unknown) Schizophrenia (non-verbal), PE (prevniously (unknown) (no (unknown) (unknown) Patient seen (units (u nknown) date) through two way unknown) audio/visual system. Pt is awake and sitting (unknown) (no (unknown) (unknown) Patient: (units (unkno wn) date) [place] B unknown) MR#: (unknown) (no (unknown) (unknown) Piperacillin (units (u nknown) date) Sod/Tazobactam 100 unknown) mls @ 25 mls/hr 02/07/22 21:00 02/08/22 04:46 (unknown) (no (unknown) (unknown) Plan (units (unkno wn) date) unknown) (unknown) (no (unknown) (unknown) Plt Count 115 L (units (unknown) date) unknown) (unknown) (no (unknown) (unknown) Plt Count 155 (units ( unknown) date) unknown) (unknown) (no (unknown) (unknown) Plt Count (units (unkn own) date) unknown) (unknown) (no (unknown) (unknown) Potassium 3.0 L (units (unknown) date) unknown) (unknown) (no (unknown) (unknown) Potassium 3.6 (units ( unknown) date) unknown) (unknown) (no (unknown) (unknown) Potassium (units (unkn own) date) unknown) (unknown) (no (unknown) (unknown) Procalcitonin 0.87 (units (unknown) date) H unknown) (unknown) (no (unknown) (unknown) Procalcitonin 1.08 (units (unknown) date) H unknown) (unknown) (no (unknown) (unknown) Procalcitonin (units ( unknown) date) unknown) (unknown) (no (unknown) (unknown) Prolactin 33.7 H (units (unknown) date) unknown) (unknown) (no (unknown) (unknown) Prolactin (units (unkn own) date) unknown) (unknown) (no (unknown) (unknown) Protocol (units (unkno wn) date) unknown) (unknown) (no (unknown) (unknown) Provider location (units (unknown) date) (State): [place] unknown) (unknown) (no (unknown) (unknown) Provider: Alexander Cuevas (units (unknown) date) Radha MEYERS unknown) (unknown) (no (unknown) (unknown) Pulse Oximetry 100 (units (unknown) date) 90 L unknown) (unknown) (no (unknown) (unknown) Pulse Oximetry 100 (units (unknown) date) 99 unknown) (unknown) (no (unknown) (unknown) Pulse Oximetry 100 (units (unknown) date) unknown) (unknown) (no (unknown) (unknown) Pulse Oximetry 82 (units (unknown) date) L unknown) (unknown) (no (unknown) (unknown) Pulse Oximetry 92 (units (unknown) date) unknown) (unknown) (no (unknown) (unknown) Pulse Oximetry 97 (units (unknown) date) 99 unknown) (unknown) (no (unknown) (unknown) Pulse Oximetry 98 (units (unknown) date) unknown) (unknown) (no (unknown) (unknown) Pulse Oximetry 99 (units (unknown) date) 98 unknown) (unknown) (no (unknown) (unknown) Pulse Oximetry 99 (units (unknown) date) 99 unknown) (unknown) (no (unknown) (unknown) Pulse Oximetry 99 (units (unknown) date) unknown) (unknown) (no (unknown) (unknown) Pulse Oximetry (units (unknown) date) unknown) (unknown) (no (unknown) (unknown) Pulse Rate 106 H (units (unknown) date) unknown) (unknown) (no (unknown) (unknown) Pulse Rate 80 78 (units (unknown) date) unknown) (unknown) (no (unknown) (unknown) Pulse Rate 81 (units ( unknown) date) unknown) (unknown) (no (unknown) (unknown) Pulse Rate 86 (units ( unknown) date) unknown) (unknown) (no (unknown) (unknown) Pulse Rate 87 (units ( unknown) date) unknown) (unknown) (no (unknown) (unknown) Pulse Rate 88 96 H (units (unknown) date) unknown) (unknown) (no (unknown) (unknown) Pulse Rate 89 93 H (units (unknown) date) unknown) (unknown) (no (unknown) (unknown) Pulse Rate 92 H (units (unknown) date) unknown) (unknown) (no (unknown) (unknown) Pulse Rate 95 H 79 (units (unknown) date) unknown) (unknown) (no (unknown) (unknown) Pulse Rate 97 H 86 (units (unknown) date) unknown) (unknown) (no (unknown) (unknown) Q24H [facility] Infusion (units (unknown) date) unknown) (unknown) (no (unknown) (unknown) Q4HR PRN (units (unkno wn) date) Administration unknown) (unknown) (no (unknown) (unknown) Q8H [place] (units (unkno wn) date) Administration unknown) (unknown) (no (unknown) (unknown) Q8H [place] Infusion (units (unknown) date) unknown) (unknown) (no (unknown) (unknown) Quality TeleICU (units (unknown) date) unknown) (unknown) (no (unknown) (unknown) RBC 3.22 L (units (unk nown) date) unknown) (unknown) (no (unknown) (unknown) RBC 3.79 L (units (unk nown) date) unknown) (unknown) (no (unknown) (unknown) RBC (units (unkno wn) date) unknown) (unknown) (no (unknown) (unknown) RDW 14.1 (units (unkno wn) date) unknown) (unknown) (no (unknown) (unknown) RDW 14.7 (units (unkno wn) date) unknown) (unknown) (no (unknown) (unknown) RDW (units (unkno wn) date) unknown) (unknown) (no (unknown) (unknown) RSV (PCR) Negative (units (unknown) date) unknown) (unknown) (no (unknown) (unknown) RSV (PCR) Not (units ( unknown) date) detected unknown) (unknown) (no (unknown) (unknown) RSV (PCR) (units (unkn own) date) unknown) (unknown) (no (unknown) (unknown) Recent events: (units (unknown) date) Patient off unknown) Levophed drip since 2 am. BP 90s/50s (unknown) (no (unknown) (unknown) Respiratory Rate (units (unknown) date) 24 unknown) (unknown) (no (unknown) (unknown) Respiratory Rate (units (unknown) date) 25 H 20 unknown) (unknown) (no (unknown) (unknown) Respiratory Rate (units (unknown) date) 29 H unknown) (unknown) (no (unknown) (unknown) Respiratory Rate (units (unknown) date) 34 H 34 H unknown) (unknown) (no (unknown) (unknown) Respiratory Rate (units (unknown) date) 36 H unknown) (unknown) (no (unknown) (unknown) Respiratory Rate (units (unknown) date) 38 H unknown) (unknown) (no (unknown) (unknown) Respiratory Rate (units (unknown) date) 39 H 44 H unknown) (unknown) (no (unknown) (unknown) Respiratory Rate (units (unknown) date) 40 H 19 unknown) (unknown) (no (unknown) (unknown) Respiratory Rate (units (unknown) date) 41 H unknown) (unknown) (no (unknown) (unknown) Respiratory Rate (units (unknown) date) 42 H unknown) (unknown) (no (unknown) (unknown) Respiratory Rate (units (unknown) date) 43 H 36 H unknown) (unknown) (no (unknown) (unknown) Respiratory Rate (units (unknown) date) 43 H unknown) (unknown) (no (unknown) (unknown) Result Diagrams: (units (unknown) date) unknown) (unknown) (no (unknown) (unknown) SARS-CoV-2 (PCR) (units (unknown) date) Negative unknown) (unknown) (no (unknown) (unknown) SARS-CoV-2 (PCR) (units (unknown) date) Not detected unknown) (unknown) (no (unknown) (unknown) SARS-CoV-2 (PCR) (units (unknown) date) unknown) (unknown) (no (unknown) (unknown) Schizophrenia (units ( unknown) date) unknown) (unknown) (no (unknown) (unknown) Septic Shock from (units (unknown) date) skin infection from unknown) picking (unknown) (no (unknown) (unknown) Signed (units (unkno wn) date) By:<Electronically unknown) signed by Alexander Cuevas MD> (unknown) (no (unknown) (unknown) Sod 3.375 gm/ (units ( unknown) date) Sodium Chloride IV unknown) 25 mls/hr (unknown) (no (unknown) (unknown) Sodium 134 L (units (u nknown) date) unknown) (unknown) (no (unknown) (unknown) Sodium 137 (units (unk nown) date) unknown) (unknown) (no (unknown) (unknown) Sodium (units (unkno wn) date) unknown) (unknown) (no (unknown) (unknown) Subjective (units (unk nown) date) unknown) (unknown) (no (unknown) (unknown) TITRATE [facility] 0 (units ( unknown) date) mls/hr unknown) (unknown) (no (unknown) (unknown) 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 (units (unknown) date) Progress Note unknown) (unknown) (no (unknown) (unknown) Temperature 100.0 (units (unknown) date) F H unknown) (unknown) (no (unknown) (unknown) Temperature 100.2 (units (unknown) date) F H unknown) (unknown) (no (unknown) (unknown) Temperature 96.6 F (units (unknown) date) L 98.1 F unknown) (unknown) (no (unknown) (unknown) Temperature 98.1 F (units (unknown) date) 99.1 F unknown) (unknown) (no (unknown) (unknown) Temperature 98.2 F (units (unknown) date) 98.4 F unknown) (unknown) (no (unknown) (unknown) Temperature 98.4 F (units (unknown) date) 98.2 F unknown) (unknown) (no (unknown) (unknown) Temperature 98.4 F (units (unknown) date) 98.4 F unknown) (unknown) (no (unknown) (unknown) Temperature 98.6 F (units (unknown) date) 98.1 F 98.6 F unknown) (unknown) (no (unknown) (unknown) Temperature 98.6 F (units (unknown) date) 98.4 F unknown) (unknown) (no (unknown) (unknown) Temperature 98.6 F (units (unknown) date) 99.0 F unknown) (unknown) (no (unknown) (unknown) Temperature 98.8 F (units (unknown) date) unknown) (unknown) (no (unknown) (unknown) Temperature 99.5 F (units (unknown) date) 99.7 F H unknown) (unknown) (no (unknown) (unknown) Time Spent With (units (unknown) date) Patient unknown) (unknown) (no (unknown) (unknown) Titration (units (unkn own) date) unknown) (unknown) (no (unknown) (unknown) Total Bilirubin (units (unknown) date) 0.5 unknown) (unknown) (no (unknown) (unknown) Total Bilirubin (units (unknown) date) unknown) (unknown) (no (unknown) (unknown) Total Creatine (units (unknown) date) Kinase 825 H unknown) (unknown) (no (unknown) (unknown) Total Creatine (units (unknown) date) Kinase unknown) (unknown) (no (unknown) (unknown) Total Protein 7.9 (units (unknown) date) unknown) (unknown) (no (unknown) (unknown) Total Protein (units ( unknown) date) unknown) (unknown) (no (unknown) (unknown) Trade Name Freq (units (unknown) date) PRN Reason Stop unknown) Dose Admin (unknown) (no (unknown) (unknown) Troponin I < 0.012 (units (unknown) date) unknown) (unknown) (no (unknown) (unknown) Troponin I (units (unk nown) date) unknown) (unknown) (no (unknown) (unknown) U Benzodiazepines (units (unknown) date) Scrn Negative unknown) (unknown) (no (unknown) (unknown) U Benzodiazepines (units (unknown) date) Scrn unknown) (unknown) (no (unknown) (unknown) U Marijuana (THC) (units (unknown) date) Screen Negative unknown) (unknown) (no (unknown) (unknown) U Marijuana (THC) (units (unknown) date) Screen unknown) (unknown) (no (unknown) (unknown) U Methamphetamines (units (unknown) date) Scrn Negative unknown) (unknown) (no (unknown) (unknown) U Methamphetamines (units (unknown) date) Scrn unknown) (unknown) (no (unknown) (unknown) U Opiates 300ng/mL (units (unknown) date) cut Negative unknown) (unknown) (no (unknown) (unknown) U Opiates 300ng/mL (units (unknown) date) cut unknown) (unknown) (no (unknown) (unknown) U Tricyclic (units (un known) date) Antidepress unknown) Negative (unknown) (no (unknown) (unknown) U Tricyclic (units (un known) date) Antidepress unknown) (unknown) (no (unknown) (unknown) Ur Amphetamines (units (unknown) date) Screen Negative unknown) (unknown) (no (unknown) (unknown) Ur Amphetamines (units (unknown) date) Screen unknown) (unknown) (no (unknown) (unknown) Ur Barbiturates (units (unknown) date) Screen Negative unknown) (unknown) (no (unknown) (unknown) Ur Barbiturates (units (unknown) date) Screen unknown) (unknown) (no (unknown) (unknown) Ur Culture (units (unk nown) date) Indicated? Cult not unknown) indicated (unknown) (no (unknown) (unknown) Ur Culture (units (unk nown) date) Indicated? unknown) (unknown) (no (unknown) (unknown) Ur MDMA Scrn (units (u nknown) date) (Ecstasy) Negative unknown) (unknown) (no (unknown) (unknown) Ur MDMA Scrn (units (u nknown) date) (Ecstasy) unknown) (unknown) (no (unknown) (unknown) Ur Oxycodone (units (u nknown) date) Screen Negative unknown) (unknown) (no (unknown) (unknown) Ur Oxycodone (units (u nknown) date) Screen unknown) (unknown) (no (unknown) (unknown) Ur Phencyclidine (units (unknown) date) Scrn Negative unknown) (unknown) (no (unknown) (unknown) Ur Phencyclidine (units (unknown) date) Scrn unknown) (unknown) (no (unknown) (unknown) Ur Squamous Epith (units (unknown) date) Cells 1-5 /hpf unknown) (unknown) (no (unknown) (unknown) Ur Squamous Epith (units (unknown) date) Cells unknown) (unknown) (no (unknown) (unknown) Ur Transition (units ( unknown) date) Epith Cell 0-1/hpf unknown) (unknown) (no (unknown) (unknown) Ur Transition (units ( unknown) date) Epith Cell unknown) (unknown) (no (unknown) (unknown) Urine Bacteria (units (unknown) date) None seen unknown) (unknown) (no (unknown) (unknown) Urine Bacteria (units (unknown) date) unknown) (unknown) (no (unknown) (unknown) Urine Cocaine (units ( unknown) date) Screen Negative unknown) (unknown) (no (unknown) (unknown) Urine Cocaine (units ( unknown) date) Screen unknown) (unknown) (no (unknown) (unknown) Urine Methadone (units (unknown) date) Screen Negative unknown) (unknown) (no (unknown) (unknown) Urine Methadone (units (unknown) date) Screen unknown) (unknown) (no (unknown) (unknown) Urine (units (unknown) date) Test Negative unknown) (unknown) (no (unknown) (unknown) Urine (units (unknown) date) Test unknown) (unknown) (no (unknown) (unknown) Urine RBC None (units (unknown) date) seen unknown) (unknown) (no (unknown) (unknown) Urine RBC (units (unkn own) date) unknown) (unknown) (no (unknown) (unknown) Urine WBC 1-5/hpf (units (unknown) date) unknown) (unknown) (no (unknown) (unknown) Urine WBC (units (unkn own) date) unknown) (unknown) (no (unknown) (unknown) VTE (units (unkno wn) date) unknown) (unknown) (no (unknown) (unknown) Vancomycin HCl 750 (units (unknown) date) mg in 150 mls @ 150 unknown) mls/hr 02/07/22 18:00 02/08/22 03:04 (unknown) (no (unknown) (unknown) Vancomycin IV (units ( unknown) date) Infused unknown) (unknown) (no (unknown) (unknown) Visit Medications (units (unknown) date) (administered) unknown) (unknown) (no (unknown) (unknown) Vital Signs (units (un known) date) unknown) (unknown) (no (unknown) (unknown) WBC 4.5 (units (unkno wn) date) unknown) (unknown) (no (unknown) (unknown) WBC 4.7 (units (unkno wn) date) unknown) (unknown) (no (unknown) (unknown) WBC (units (unkno wn) date) unknown) (unknown) (no (unknown) (unknown) [Embedded Image (units (unknown) date) Not Available] unknown) (unknown) (no (unknown) (unknown) antibiotics and (units (unknown) date) Levophed drip. CTA unknown) neg for PE. (unknown) (no (unknown) (unknown) calmly in bed (units ( unknown) date) unknown) (unknown) (no (unknown) (unknown) communication: (units (unknown) date) Camera activated unknown) (unknown) (no (unknown) (unknown) olanzapine 15 mg (units (unknown) date) tablet 15 mg PO unknown) BEDTIME #90 tabs 09/23/20 [Rx Confirmed (unknown) (no (unknown) (unknown) on AC many years (units (unknown) date) ago, s/p IVC unknown) filter, unclear if removed) was admitted 02/07/22 (unknown) (no (unknown) (unknown) out of ICU this (units (unknown) date) evening unknown) (unknown) (no (unknown) (unknown) today; this time (units (unknown) date) is exclusive of unknown) procedural time. (unknown) (no (unknown) (unknown) with septic shock (units (unknown) date) from skin infection unknown) (from picking?). Pt. placed on Result panel 486 (unknown) (no date) (unknown) (unknown) 31.2 ug/ml (unkn own) Result panel 487 (unknown) (no date) (unknown) (unknown) 2.5 g/dl (unkn own) Result panel 488 (unknown) (no (unknown) (unknown) (no value) (units (unk nown) date) unknown) (unknown) (no (unknown) (unknown) (1) Skin ulcer: (units (unknown) date) unknown) (unknown) (no (unknown) (unknown) (2) Multiple open (units (unknown) date) wounds of face: unknown) (unknown) (no (unknown) (unknown) (3) Scalp wound: (units (unknown) date) unknown) (unknown) (no (unknown) (unknown) (past 8 hours): (units (unknown) date) unknown) (unknown) (no (unknown) (unknown) 03:00 03:00 09:30 (units (unknown) date) unknown) (unknown) (no (unknown) (unknown) 09:00 02/08/22 (units (unknown) date) unknown) (unknown) (no (unknown) (unknown) 09:20 16:00 03:00 (units (unknown) date) unknown) (unknown) (no (unknown) (unknown) 09:30 02/08/22 (units (unknown) date) unknown) (unknown) (no (unknown) (unknown) 09:30 (units (unkno wn) date) unknown) (unknown) (no (unknown) (unknown) 10:00 02/08/22 (units (unknown) date) unknown) (unknown) (no (unknown) (unknown) 10:00 (units (unkno wn) date) unknown) (unknown) (no (unknown) (unknown) 10:30 02/08/22 (units (unknown) date) unknown) (unknown) (no (unknown) (unknown) 11:00 02/08/22 (units (unknown) date) unknown) (unknown) (no (unknown) (unknown) 11:00 (units (unkno wn) date) unknown) (unknown) (no (unknown) (unknown) 11:30 02/08/22 (units (unknown) date) unknown) (unknown) (no (unknown) (unknown) 11:30 (units (unkno wn) date) unknown) (unknown) (no (unknown) (unknown) 02/07/22 02/07/22 (units (unknown) date) 12/13/22 unknown) (unknown) (no (unknown) (unknown) 02/08/22 03:00 (units (unknown) date) unknown) (unknown) (no (unknown) (unknown) 02/08/22 02/08/22 (units (unknown) date) 02/08/22 unknown) (unknown) (no (unknown) (unknown) 02/08/22 02/08/22 (units (unknown) date) unknown) (unknown) (no (unknown) (unknown) 02/08/22 1651 (units ( unknown) date) unknown) (unknown) (no (unknown) (unknown) 02/08/22 (units (unkno wn) date) unknown) (unknown) (no (unknown) (unknown) 12:00 02/08/22 (units (unknown) date) unknown) (unknown) (no (unknown) (unknown) 12:00 14:24 (units (un known) date) unknown) (unknown) (no (unknown) (unknown) 12:30 02/08/22 (units (unknown) date) unknown) (unknown) (no (unknown) (unknown) 12:30 (units (unkno wn) date) unknown) (unknown) (no (unknown) (unknown) 13:00 02/08/22 (units (unknown) date) unknown) (unknown) (no (unknown) (unknown) 13:00 (units (unkno wn) date) unknown) (unknown) (no (unknown) (unknown) 13:30 02/08/22 (units (unknown) date) unknown) (unknown) (no (unknown) (unknown) 14:00 02/08/22 (units (unknown) date) unknown) (unknown) (no (unknown) (unknown) 14:00 (units (unkno wn) date) unknown) (unknown) (no (unknown) (unknown) 14:30 02/08/22 (units (unknown) date) unknown) (unknown) (no (unknown) (unknown) 14:30 (units (unkno wn) date) unknown) (unknown) (no (unknown) (unknown) 14:43 02/08/22 (units (unknown) date) unknown) (unknown) (no (unknown) (unknown) 15:00 02/08/22 (units (unknown) date) unknown) (unknown) (no (unknown) (unknown) 15:00 (units (unkno wn) date) unknown) (unknown) (no (unknown) (unknown) 15:30 02/08/22 (units (unknown) date) unknown) (unknown) (no (unknown) (unknown) 16:00 02/08/22 (units (unknown) date) unknown) (unknown) (no (unknown) (unknown) 16:00 (units (unkno wn) date) unknown) (unknown) (no (unknown) (unknown) 16:37 (units (unkno wn) date) unknown) (unknown) (no (unknown) (unknown) Age/Sex: 31 / F (units (unknown) date) unknown) (unknown) (no (unknown) (unknown) Albumin 2.5 L (units ( unknown) date) unknown) (unknown) (no (unknown) (unknown) Albumin (units (unkno wn) date) unknown) (unknown) (no (unknown) (unknown) Allergies (units (unkn own) date) unknown) (unknown) (no (unknown) (unknown) Allergy/AdvReac (units (unknown) date) Type Severity unknown) Reaction Status Date / Time (unknown) (no (unknown) (unknown) Assessment + Plan (units (unknown) date) unknown) (unknown) (no (unknown) (unknown) Assessment and (units (unknown) date) plan unknown) (unknown) (no (unknown) (unknown) BUN 8 (units (unkno wn) date) unknown) (unknown) (no (unknown) (unknown) BUN (units (unkno wn) date) unknown) (unknown) (no (unknown) (unknown) BUN/Creatinine (units (unknown) date) Ratio 14.8 unknown) (unknown) (no (unknown) (unknown) BUN/Creatinine (units (unknown) date) Ratio unknown) (unknown) (no (unknown) (unknown) Baso # (Auto) 0 (units (unknown) date) unknown) (unknown) (no (unknown) (unknown) Baso # (Auto) (units ( unknown) date) unknown) (unknown) (no (unknown) (unknown) Baso % (Auto) 0.3 (units (unknown) date) unknown) (unknown) (no (unknown) (unknown) Baso % (Auto) (units ( unknown) date) unknown) (unknown) (no (unknown) (unknown) Blood Pressure (units (unknown) date) 100/55 L unknown) (unknown) (no (unknown) (unknown) Blood Pressure (units (unknown) date) 104/55 L unknown) (unknown) (no (unknown) (unknown) Blood Pressure (units (unknown) date) 110/57 L unknown) (unknown) (no (unknown) (unknown) Blood Pressure (units (unknown) date) 92/52 L unknown) (unknown) (no (unknown) (unknown) Blood Pressure (units (unknown) date) 93/56 L 96/58 L unknown) (unknown) (no (unknown) (unknown) Blood Pressure (units (unknown) date) 96/59 L 102/65 unknown) (unknown) (no (unknown) (unknown) Blood Pressure (units (unknown) date) 96/60 96/58 L unknown) (unknown) (no (unknown) (unknown) Blood Pressure (units (unknown) date) 97/56 L 102/51 L unknown) (unknown) (no (unknown) (unknown) Blood Pressure (units (unknown) date) 97/58 L 91/53 L unknown) (unknown) (no (unknown) (unknown) Blood Pressure (units (unknown) date) 98/64 unknown) (unknown) (no (unknown) (unknown) Blood Pressure (units (unknown) date) unknown) (unknown) (no (unknown) (unknown) Calcium 6.6 L (units ( unknown) date) unknown) (unknown) (no (unknown) (unknown) Calcium (units (unkno wn) date) unknown) (unknown) (no (unknown) (unknown) Carbon Dioxide 23 (units (unknown) date) unknown) (unknown) (no (unknown) (unknown) Carbon Dioxide (units (unknown) date) unknown) (unknown) (no (unknown) (unknown) Chief complaint: (units (unknown) date) she has wounds on unknown) head, not eating, mucas in nose (unknown) (no (unknown) (unknown) Chloride 107 (units (u nknown) date) unknown) (unknown) (no (unknown) (unknown) Chloride (units (unkno wn) date) unknown) (unknown) (no (unknown) (unknown) Consult Note (units (u nknown) date) unknown) (unknown) (no (unknown) (unknown) Consult details (units (unknown) date) unknown) (unknown) (no (unknown) (unknown) Creatinine 0.54 (units (unknown) date) unknown) (unknown) (no (unknown) (unknown) Creatinine (units (unk nown) date) unknown) (unknown) (no (unknown) (unknown) Critical Care (units ( unknown) date) time: unknown) (unknown) (no (unknown) (unknown) : 1990 (units (unknown) date) Acct:[id number] unknown) (unknown) (no (unknown) (unknown) Date Patient Seen: (units (unknown) date) 02/08/22 unknown) (unknown) (no (unknown) (unknown) Date of Service: (units (unknown) date) 02/07/22 unknown) (unknown) (no (unknown) (unknown) EOM: EOM intact (units (unknown) date) bilaterally unknown) (unknown) (no (unknown) (unknown) Eos # (Auto) 0 (units (unknown) date) unknown) (unknown) (no (unknown) (unknown) Eos # (Auto) (units (u nknown) date) unknown) (unknown) (no (unknown) (unknown) Eos % (Auto) 0.0 L (units (unknown) date) unknown) (unknown) (no (unknown) (unknown) Eos % (Auto) (units (u nknown) date) unknown) (unknown) (no (unknown) (unknown) Estimated GFR > 60 (units (unknown) date) unknown) (unknown) (no (unknown) (unknown) Estimated GFR (units ( unknown) date) unknown) (unknown) (no (unknown) (unknown) Exam Narrative: (units (unknown) date) unknown) (unknown) (no (unknown) (unknown) Exam (units (unkno wn) date) unknown) (unknown) (no (unknown) (unknown) Eyes (units (unkno wn) date) unknown) (unknown) (no (unknown) (unknown) Glucose 64 L (units (u nknown) date) unknown) (unknown) (no (unknown) (unknown) Glucose (units (unkno wn) date) unknown) (unknown) (no (unknown) (unknown) HENMT (units (unkno wn) date) unknown) (unknown) (no (unknown) (unknown) Hct 28.0 L (units (unk nown) date) unknown) (unknown) (no (unknown) (unknown) Hct (units (unkno wn) date) unknown) (unknown) (no (unknown) (unknown) Head: (units (unkno wn) date) normocephalic unknown) (unknown) (no (unknown) (unknown) Hgb 9.3 L (units (unkn own) date) unknown) (unknown) (no (unknown) (unknown) Hgb (units (unkno wn) date) unknown) (unknown) (no (unknown) (unknown) 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) (unknown) (no (unknown) (unknown) History of Present (units (unknown) date) Illness unknown) (unknown) (no (unknown) (unknown) History of (units (unk nown) date) pulmonary embolism unknown) (unknown) (no (unknown) (unknown) Home Medications (units (unknown) date) and Allergies unknown) (unknown) (no (unknown) (unknown) Home Medications (units (unknown) date) unknown) (unknown) (no (unknown) (unknown) I spent a total of (units (unknown) date) [] minutes of unknown) critical care time on this patient's care (unknown) (no (unknown) (unknown) [facility] (units (unknown) date) [address] [place] [address] unknown) [place] [address] (unknown) (no (unknown) (unknown) Laboratory Results (units (unknown) date) - last 24 hr unknown) (unknown) (no (unknown) (unknown) Labs (units (unkno wn) date) unknown) (unknown) (no (unknown) (unknown) Labs: (units (unkno wn) date) unknown) (unknown) (no (unknown) (unknown) Lymph # (Auto) (units (unknown) date) 1000 L unknown) (unknown) (no (unknown) (unknown) Lymph # (Auto) (units (unknown) date) unknown) (unknown) (no (unknown) (unknown) Lymph % (Auto) (units (unknown) date) 21.3 L unknown) (unknown) (no (unknown) (unknown) Lymph % (Auto) (units (unknown) date) unknown) (unknown) (no (unknown) (unknown) [id number] (units (unk nown) date) unknown) (unknown) (no (unknown) (unknown) MCH 29.0 (units (unkno wn) date) unknown) (unknown) (no (unknown) (unknown) MCH (units (unkno wn) date) unknown) (unknown) (no (unknown) (unknown) MCHC 33.3 (units (unkn own) date) unknown) (unknown) (no (unknown) (unknown) MCHC (units (unkno wn) date) unknown) (unknown) (no (unknown) (unknown) MCV 87.1 (units (unkno wn) date) unknown) (unknown) (no (unknown) (unknown) MCV (units (unkno wn) date) unknown) (unknown) (no (unknown) (unknown) Medical History (units (unknown) date) (Reviewed 02/08/22 unknown) @ 16:42 by Asa Khan MD) (unknown) (no (unknown) (unknown) Medication (units (unk nown) date) Instructions unknown) Recorded Confirmed Type (unknown) (no (unknown) (unknown) Meds (units (unkno wn) date) unknown) (unknown) (no (unknown) (unknown) Butts # (Auto) 300 (units (unknown) date) unknown) (unknown) (no (unknown) (unknown) Butts # (Auto) (units ( unknown) date) unknown) (unknown) (no (unknown) (unknown) Butts % (Auto) 7.2 (units (unknown) date) unknown) (unknown) (no (unknown) (unknown) Butts % (Auto) (units ( unknown) date) unknown) (unknown) (no (unknown) (unknown) Narrative (units (unkn own) date) unknown) (unknown) (no (unknown) (unknown) Narrative: (units (unk nown) date) unknown) (unknown) (no (unknown) (unknown) Nasal Screen MRSA (units (unknown) date) (PCR) Negative for unknown) mrsa (unknown) (no (unknown) (unknown) Nasal Screen MRSA (units (unknown) date) (PCR) unknown) (unknown) (no (unknown) (unknown) Neck (units (unkno wn) date) unknown) (unknown) (no (unknown) (unknown) Neut # (Auto) 3400 (units (unknown) date) unknown) (unknown) (no (unknown) (unknown) Neut # (Auto) (units ( unknown) date) unknown) (unknown) (no (unknown) (unknown) Neut % (Auto) 71.2 (units (unknown) date) unknown) (unknown) (no (unknown) (unknown) Neut % (Auto) (units ( unknown) date) unknown) (unknown) (no (unknown) (unknown) No tenderness (units ( unknown) date) unknown) (unknown) (no (unknown) (unknown) Objective (units (unkn own) date) unknown) (unknown) (no (unknown) (unknown) Other: (units (unkno wn) date) unknown) (unknown) (no (unknown) (unknown) Oxygen Delivery (units (unknown) date) Method Room Air unknown) (unknown) (no (unknown) (unknown) Oxygen Flow Rate 0 (units (unknown) date) unknown) (unknown) (no (unknown) (unknown) PFSH (units (unkno wn) date) unknown) (unknown) (no (unknown) (unknown) Patient has (units (un known) date) multiple unknown) superficial wounds caused by uncontrolled scratching. (unknown) (no (unknown) (unknown) Patient is (units (unkn own) date) restrained, does unknown) not respond verbally but is awake and in no apparent (unknown) (no (unknown) (unknown) Patient: (units (unkno wn) date) [place] unknown) MR#: (unknown) (no (unknown) (unknown) Plan (units (unkno wn) date) unknown) (unknown) (no (unknown) (unknown) Plt Count 115 L (units (unknown) date) unknown) (unknown) (no (unknown) (unknown) Plt Count (units (unkn own) date) unknown) (unknown) (no (unknown) (unknown) Potassium 3.0 L (units (unknown) date) unknown) (unknown) (no (unknown) (unknown) Potassium (units (unkn own) date) unknown) (unknown) (no (unknown) (unknown) Procalcitonin 0.87 (units (unknown) date) H unknown) (unknown) (no (unknown) (unknown) Procalcitonin (units ( unknown) date) unknown) (unknown) (no (unknown) (unknown) Prolactin 33.7 H (units (unknown) date) unknown) (unknown) (no (unknown) (unknown) Prolactin (units (unkn own) date) unknown) (unknown) (no (unknown) (unknown) Provider: (units (unkn own) date) Asa Khan MD unknown) (unknown) (no (unknown) (unknown) Pulse Rate 101 H (units (unknown) date) unknown) (unknown) (no (unknown) (unknown) Pulse Rate 102 H (units (unknown) date) 83 unknown) (unknown) (no (unknown) (unknown) Pulse Rate 82 82 (units (unknown) date) unknown) (unknown) (no (unknown) (unknown) Pulse Rate 83 (units ( unknown) date) unknown) (unknown) (no (unknown) (unknown) Pulse Rate 84 86 (units (unknown) date) unknown) (unknown) (no (unknown) (unknown) Pulse Rate 84 (units ( unknown) date) unknown) (unknown) (no (unknown) (unknown) Pulse Rate 86 (units ( unknown) date) unknown) (unknown) (no (unknown) (unknown) Pulse Rate 88 (units ( unknown) date) unknown) (unknown) (no (unknown) (unknown) Pulse Rate 89 (units ( unknown) date) unknown) (unknown) (no (unknown) (unknown) Pulse Rate 90 (units ( unknown) date) unknown) (unknown) (no (unknown) (unknown) Pulse Rate 94 H 94 (units (unknown) date) H unknown) (unknown) (no (unknown) (unknown) RBC 3.22 L (units (unk nown) date) unknown) (unknown) (no (unknown) (unknown) RBC (units (unkno wn) date) unknown) (unknown) (no (unknown) (unknown) RDW 14.7 (units (unkno wn) date) unknown) (unknown) (no (unknown) (unknown) RDW (units (unkno wn) date) unknown) (unknown) (no (unknown) (unknown) Recommend treating (units (unknown) date) the eschars on the unknown) face, scalp, and ears with mupirocin (unknown) (no (unknown) (unknown) Respiratory Rate (units (unknown) date) 18 unknown) (unknown) (no (unknown) (unknown) Respiratory Rate (units (unknown) date) 22 23 unknown) (unknown) (no (unknown) (unknown) Respiratory Rate (units (unknown) date) 24 unknown) (unknown) (no (unknown) (unknown) Respiratory Rate (units (unknown) date) 25 H unknown) (unknown) (no (unknown) (unknown) Respiratory Rate (units (unknown) date) 28 H unknown) (unknown) (no (unknown) (unknown) Respiratory Rate (units (unknown) date) 30 H 32 H unknown) (unknown) (no (unknown) (unknown) Respiratory Rate (units (unknown) date) 32 H 38 H unknown) (unknown) (no (unknown) (unknown) Respiratory Rate (units (unknown) date) 32 H unknown) (unknown) (no (unknown) (unknown) Respiratory Rate (units (unknown) date) 35 H 33 H unknown) (unknown) (no (unknown) (unknown) Respiratory Rate (units (unknown) date) 36 H unknown) (unknown) (no (unknown) (unknown) Respiratory Rate (units (unknown) date) 37 H unknown) (unknown) (no (unknown) (unknown) Result Diagrams: (units (unknown) date) unknown) (unknown) (no (unknown) (unknown) Review of Systems (units (unknown) date) unknown) (unknown) (no (unknown) (unknown) Scattered eschars (units (unknown) date) along the unknown) nasolabial fold on each side with mild erythema, (unknown) (no (unknown) (unknown) Schizophrenia (units ( unknown) date) unknown) (unknown) (no (unknown) (unknown) Signed (units (unkno wn) date) By:<Electronically unknown) signed by Asa Khan MD> (unknown) (no (unknown) (unknown) Skin (units (unkno wn) date) unknown) (unknown) (no (unknown) (unknown) Smoking Status: (units (unknown) date) Never smoker unknown) (unknown) (no (unknown) (unknown) Social History (units (unknown) date) unknown) (unknown) (no (unknown) (unknown) Sodium 137 (units (unk nown) date) unknown) (unknown) (no (unknown) (unknown) Sodium (units (unkno wn) date) unknown) (unknown) (no (unknown) (unknown) Status: Acute (units ( unknown) date) unknown) (unknown) (no (unknown) (unknown) Temperature 100.6 (units (unknown) date) F H unknown) (unknown) (no (unknown) (unknown) Temperature 100.8 (units (unknown) date) F H 100.9 F H unknown) (unknown) (no (unknown) (unknown) Temperature 100.9 (units (unknown) date) F H 100.9 F H unknown) (unknown) (no (unknown) (unknown) Temperature 100.9 (units (unknown) date) F H 101.3 F H unknown) (unknown) (no (unknown) (unknown) Temperature 100.9 (units (unknown) date) F H unknown) (unknown) (no (unknown) (unknown) Temperature 101.1 (units (unknown) date) F H 101.3 F H unknown) (unknown) (no (unknown) (unknown) Temperature 101.5 (units (unknown) date) F H 100.8 F H unknown) (unknown) (no (unknown) (unknown) Temperature 101.5 (units (unknown) date) F H unknown) (unknown) (no (unknown) (unknown) The patient is a (units (unknown) date) 31-year-old female unknown) with poorly controlled schizophrenia who was (unknown) (no (unknown) (unknown) Time Patient Seen: (units (unknown) date) 16:00 unknown) (unknown) (no (unknown) (unknown) Time Spent With (units (unknown) date) Patient unknown) (unknown) (no (unknown) (unknown) Time with patient: (units (unknown) date) 30 to 49 minutes unknown) with 50% spent counseling/coordina ting care (unknown) (no (unknown) (unknown) Tobacco + (units (unkn own) date) Substance Use unknown) (unknown) (no (unknown) (unknown) U Benzodiazepines (units (unknown) date) Scrn Negative unknown) (unknown) (no (unknown) (unknown) U Benzodiazepines (units (unknown) date) Scrn unknown) (unknown) (no (unknown) (unknown) U Marijuana (THC) (units (unknown) date) Screen Negative unknown) (unknown) (no (unknown) (unknown) U Marijuana (THC) (units (unknown) date) Screen unknown) (unknown) (no (unknown) (unknown) U Methamphetamines (units (unknown) date) Scrn Negative unknown) (unknown) (no (unknown) (unknown) U Methamphetamines (units (unknown) date) Scrn unknown) (unknown) (no (unknown) (unknown) U Opiates 300ng/mL (units (unknown) date) cut Negative unknown) (unknown) (no (unknown) (unknown) U Opiates 300ng/mL (units (unknown) date) cut unknown) (unknown) (no (unknown) (unknown) U Tricyclic (units (un known) date) Antidepress unknown) Negative (unknown) (no (unknown) (unknown) U Tricyclic (units (un known) date) Antidepress unknown) (unknown) (no (unknown) (unknown) Unable to obtain (units (unknown) date) unknown) (unknown) (no (unknown) (unknown) Ur Amphetamines (units (unknown) date) Screen Negative unknown) (unknown) (no (unknown) (unknown) Ur Amphetamines (units (unknown) date) Screen unknown) (unknown) (no (unknown) (unknown) Ur Barbiturates (units (unknown) date) Screen Negative unknown) (unknown) (no (unknown) (unknown) Ur Barbiturates (units (unknown) date) Screen unknown) (unknown) (no (unknown) (unknown) Ur MDMA Scrn (units (u nknown) date) (Ecstasy) Negative unknown) (unknown) (no (unknown) (unknown) Ur MDMA Scrn (units (u nknown) date) (Ecstasy) unknown) (unknown) (no (unknown) (unknown) Ur Oxycodone (units (u nknown) date) Screen Negative unknown) (unknown) (no (unknown) (unknown) Ur Oxycodone (units (u nknown) date) Screen unknown) (unknown) (no (unknown) (unknown) Ur Phencyclidine (units (unknown) date) Scrn Negative unknown) (unknown) (no (unknown) (unknown) Ur Phencyclidine (units (unknown) date) Scrn unknown) (unknown) (no (unknown) (unknown) Urine Cocaine (units ( unknown) date) Screen Negative unknown) (unknown) (no (unknown) (unknown) Urine Cocaine (units ( unknown) date) Screen unknown) (unknown) (no (unknown) (unknown) Urine Methadone (units (unknown) date) Screen Negative unknown) (unknown) (no (unknown) (unknown) Urine Methadone (units (unknown) date) Screen unknown) (unknown) (no (unknown) (unknown) Vancomycin Peak (units (unknown) date) 31.2 unknown) (unknown) (no (unknown) (unknown) Vancomycin Peak (units (unknown) date) unknown) (unknown) (no (unknown) (unknown) Vancomycin Trough (units (unknown) date) 13.1 unknown) (unknown) (no (unknown) (unknown) Vancomycin Trough (units (unknown) date) unknown) (unknown) (no (unknown) (unknown) Vital Signs (units (un known) date) unknown) (unknown) (no (unknown) (unknown) WBC 4.7 (units (unkno wn) date) unknown) (unknown) (no (unknown) (unknown) WBC (units (unkno wn) date) unknown) (unknown) (no (unknown) (unknown) Wounds: wounds (units (unknown) date) noted unknown) (unknown) (no (unknown) (unknown) Xeroform gauze. (units (unknown) date) Follow up in wound unknown) clinic after discharge. (unknown) (no (unknown) (unknown) [Embedded Image (units (unknown) date) Not Available] unknown) (unknown) (no (unknown) (unknown) admitted January (units (unknown) date) 2021 with unknown) sepsis in multiple self inflicted wounds on (unknown) (no (unknown) (unknown) at this time. She (units (unknown) date) is not currently unknown) receiving any specific wound care. The (unknown) (no (unknown) (unknown) care consult was (units (unknown) date) obtained for unknown) recommendations regarding management of facial, (unknown) (no (unknown) (unknown) considerable (units (u nknown) date) difficulty trying unknown) to keep her from scratching and have tried (unknown) (no (unknown) (unknown) distress (units (unkno wn) date) unknown) (unknown) (no (unknown) (unknown) face, scalp, and (units (unknown) date) neck. Patient unknown) reportedly frequently scratches these areas and (unknown) (no (unknown) (unknown) household members: (units (unknown) date) family unknown) (unknown) (no (unknown) (unknown) infection (units (unkn own) date) unknown) (unknown) (no (unknown) (unknown) mirtazapine (units (un known) date) AdvReac unknown) Intermediate Rash severe Verified 01/30/22 06:52 (unknown) (no (unknown) (unknown) ointment b.i.d., (units (unknown) date) daily dressing unknown) changes to the large ulcer posterior neck with (unknown) (no (unknown) (unknown) olanzapine 15 mg (units (unknown) date) tablet 15 mg PO unknown) BEDTIME #90 tabs 09/23/20 02/07/22 Rx (unknown) (no (unknown) (unknown) patient does have (units (unknown) date) a low-grade fever, unknown) white count this morning was 4.7. Wound (unknown) (no (unknown) (unknown) putting socks over (units (unknown) date) her hands. Upon unknown) admission she showed evidence for sepsis and (unknown) (no (unknown) (unknown) scalp, and neck (units (unknown) date) wounds. unknown) (unknown) (no (unknown) (unknown) scattered eschars (units (unknown) date) on scalp and ears, unknown) scarring on the apex of scalp, partial (unknown) (no (unknown) (unknown) they result in (units (unknown) date) open wounds. unknown) According to the patient's family they have had (unknown) (no (unknown) (unknown) thickness open (units ( unknown) date) wound involving the unknown) entire posterior neck without signs of active (unknown) (no (unknown) (unknown) today; this time (units (unknown) date) is exclusive of unknown) procedural time. (unknown) (no (unknown) (unknown) vassopressors. (units (unknown) date) Blood cultures have unknown) been obtained but results are still pending (unknown) (no (unknown) (unknown) was started on IV (units (unknown) date) antibiotic therapy unknown) and also required a brief course of Result panel 489 (unknown) (no (unknown) (unknown) (no value) (units (unk nown) date) unknown) (unknown) (no (unknown) (unknown) (past 8 hours): (units (unknown) date) unknown) (unknown) (no (unknown) (unknown) -CTA chest on (units ( unknown) date) 02/07 negative for unknown) PE (unknown) (no (unknown) (unknown) -IV azithromycin (units (unknown) date) added for atypical unknown) coverage due to interstitial infiltrates on (unknown) (no (unknown) (unknown) -able to wean off (units (unknown) date) levophed on 02/08 unknown) (unknown) (no (unknown) (unknown) -blood cultures x2 (units (unknown) date) no growth to date unknown) (unknown) (no (unknown) (unknown) -chest x-ray (units (u nknown) date) personally reviewed unknown) and shows nonspecific diffuse interstitial (unknown) (no (unknown) (unknown) -continue on (units (u nknown) date) vancomycin and unknown) Zosyn started in the ED (unknown) (no (unknown) (unknown) -continue (units (unkn own) date) restraints due to unknown) pulling at lines (unknown) (no (unknown) (unknown) -differential (units ( unknown) date) diagnosis includes unknown) non infectious source of fever and hypotension (unknown) (no (unknown) (unknown) -dimer 2351 (units (un known) date) unknown) (unknown) (no (unknown) (unknown) -event was (units (unk nown) date) reportedly in 2018, unknown) unknown whether IVC filter was ever removed, (unknown) (no (unknown) (unknown) -nasal MRSA swab (units (unknown) date) negative, will unknown) consider stopping vanco (unknown) (no (unknown) (unknown) -normal (units (unkno wn) date) urinalysis, unknown) respiratory panel PCR, normal WBC without left shift but (unknown) (no (unknown) (unknown) -patient got (units (u nknown) date) Zyprexa in the ED unknown) (unknown) (no (unknown) (unknown) -patient presents (units (unknown) date) febrile, unknown) tachycardic and tachypneic and became hypotensive in (unknown) (no (unknown) (unknown) -per discussion (units (unknown) date) with Psychiatry, unknown) increased olanzapine from 50 mg to 20 mg at (unknown) (no (unknown) (unknown) -possible source is (units (unknown) date) bacteremia due to unknown) skin lesions on scalp and neck, no mastoid (unknown) (no (unknown) (unknown) -right IJ central (units (unknown) date) line placed in the unknown) ED, will remove today per parents request (unknown) (no (unknown) (unknown) -urine tox screen (units (unknown) date) negative unknown) (unknown) (no (unknown) (unknown) -wound culture (units ( unknown) date) obtained from right unknown) ear drainage, currently only mixed skin iman (unknown) (no (unknown) (unknown) 01:30 02/08/22 (units (unknown) date) unknown) (unknown) (no (unknown) (unknown) 02:00 02/08/22 (units (unknown) date) unknown) (unknown) (no (unknown) (unknown) 02:00 (units (unkno wn) date) unknown) (unknown) (no (unknown) (unknown) 02:30 02/08/22 (units (unknown) date) unknown) (unknown) (no (unknown) (unknown) 02:30 (units (unkno wn) date) unknown) (unknown) (no (unknown) (unknown) 03:00 02/08/22 (units (unknown) date) unknown) (unknown) (no (unknown) (unknown) 03:00 (units (unkno wn) date) unknown) (unknown) (no (unknown) (unknown) 03:30 02/08/22 (units (unknown) date) unknown) (unknown) (no (unknown) (unknown) 04:00 02/08/22 (units (unknown) date) unknown) (unknown) (no (unknown) (unknown) 04:00 (units (unkno wn) date) unknown) (unknown) (no (unknown) (unknown) 04:30 02/08/22 (units (unknown) date) unknown) (unknown) (no (unknown) (unknown) 04:30 (units (unkno wn) date) unknown) (unknown) (no (unknown) (unknown) 05:00 02/08/22 (units (unknown) date) unknown) (unknown) (no (unknown) (unknown) 05:00 (units (unkno wn) date) unknown) (unknown) (no (unknown) (unknown) 05:30 02/08/22 (units (unknown) date) unknown) (unknown) (no (unknown) (unknown) 06:00 02/08/22 (units (unknown) date) unknown) (unknown) (no (unknown) (unknown) 06:00 (units (unkno wn) date) unknown) (unknown) (no (unknown) (unknown) 06:30 02/08/22 (units (unknown) date) unknown) (unknown) (no (unknown) (unknown) 06:30 (units (unkno wn) date) unknown) (unknown) (no (unknown) (unknown) 07:00 02/08/22 (units (unknown) date) unknown) (unknown) (no (unknown) (unknown) 07:30 02/08/22 (units (unknown) date) unknown) (unknown) (no (unknown) (unknown) 07:30 (units (unkno wn) date) unknown) (unknown) (no (unknown) (unknown) 08:00 02/08/22 (units (unknown) date) unknown) (unknown) (no (unknown) (unknown) 08:00 (units (unkno wn) date) unknown) (unknown) (no (unknown) (unknown) 08:22 08:22 08:22 (units (unknown) date) unknown) (unknown) (no (unknown) (unknown) 08:27 08:42 09:20 (units (unknown) date) unknown) (unknown) (no (unknown) (unknown) 08:30 02/08/22 (units (unknown) date) unknown) (unknown) (no (unknown) (unknown) 09:00 (units (unkno wn) date) unknown) (unknown) (no (unknown) (unknown) 09:20 09:20 12:00 (units (unknown) date) unknown) (unknown) (no (unknown) (unknown) 1. Septic shock, (units (unknown) date) shock now resolved unknown) (unknown) (no (unknown) (unknown) 02/07/22 02/07/22 (units (unknown) date) 02/07/22 unknown) (unknown) (no (unknown) (unknown) 02/07/22 02/08/22 (units (unknown) date) 02/08/22 unknown) (unknown) (no (unknown) (unknown) 02/08/22 03:00 (units (unknown) date) unknown) (unknown) (no (unknown) (unknown) 02/08/22 1809 (units ( unknown) date) unknown) (unknown) (no (unknown) (unknown) 02/08/22 (units (unkno wn) date) unknown) (unknown) (no (unknown) (unknown) 15:39 03:00 03:00 (units (unknown) date) unknown) (unknown) (no (unknown) (unknown) 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 Schizophrenia (units (unknown) date) unknown) (unknown) (no (unknown) (unknown) Abdomen: Soft and (units (unknown) date) nontender, no HSM unknown) (unknown) (no (unknown) (unknown) Adenovirus (PCR) (units (unknown) date) Not detected unknown) (unknown) (no (unknown) (unknown) Adenovirus (PCR) (units (unknown) date) unknown) (unknown) (no (unknown) (unknown) Age/Sex: 31 / F (units (unknown) date) unknown) (unknown) (no (unknown) (unknown) Assessment + Plan (units (unknown) date) narrative: unknown) (unknown) (no (unknown) (unknown) Assessment + Plan (units (unknown) date) unknown) (unknown) (no (unknown) (unknown) B. pertussis DNA (units (unknown) date) (PCR) Not detected unknown) (unknown) (no (unknown) (unknown) B. pertussis DNA (units (unknown) date) (PCR) unknown) (unknown) (no (unknown) (unknown) B.parapertussis (units (unknown) date) DNA PCR Not unknown) detected (unknown) (no (unknown) (unknown) B.parapertussis (units (unknown) date) DNA PCR unknown) (unknown) (no (unknown) (unknown) BUN 8 (units (unkno wn) date) unknown) (unknown) (no (unknown) (unknown) BUN (units (unkno wn) date) unknown) (unknown) (no (unknown) (unknown) BUN/Creatinine (units (unknown) date) Ratio 14.8 unknown) (unknown) (no (unknown) (unknown) BUN/Creatinine (units (unknown) date) Ratio unknown) (unknown) (no (unknown) (unknown) Baso # (Auto) 0 (units (unknown) date) unknown) (unknown) (no (unknown) (unknown) Baso # (Auto) (units ( unknown) date) unknown) (unknown) (no (unknown) (unknown) Baso % (Auto) 0.3 (units (unknown) date) unknown) (unknown) (no (unknown) (unknown) Baso % (Auto) (units ( unknown) date) unknown) (unknown) (no (unknown) (unknown) Blood Pressure (units (unknown) date) 101/67 96/60 unknown) (unknown) (no (unknown) (unknown) Blood Pressure (units (unknown) date) 104/62 unknown) (unknown) (no (unknown) (unknown) Blood Pressure (units (unknown) date) 105/63 98/60 unknown) (unknown) (no (unknown) (unknown) Blood Pressure (units (unknown) date) 82/53 L 89/57 L unknown) (unknown) (no (unknown) (unknown) Blood Pressure (units (unknown) date) 89/58 L unknown) (unknown) (no (unknown) (unknown) Blood Pressure (units (unknown) date) 97/62 101/67 unknown) (unknown) (no (unknown) (unknown) Blood Pressure (units (unknown) date) 98/60 96/60 unknown) (unknown) (no (unknown) (unknown) Blood Pressure (units (unknown) date) 98/61 98/60 unknown) (unknown) (no (unknown) (unknown) Blood Pressure (units (unknown) date) 99/60 88/57 L unknown) (unknown) (no (unknown) (unknown) Blood Pressure (units (unknown) date) 99/61 unknown) (unknown) (no (unknown) (unknown) Blood Pressure (units (unknown) date) unknown) (unknown) (no (unknown) (unknown) CK-MB (CK-2) 2.02 (units (unknown) date) unknown) (unknown) (no (unknown) (unknown) CK-MB (CK-2) Rel (units (unknown) date) Index 0.2 L unknown) (unknown) (no (unknown) (unknown) CK-MB (CK-2) Rel (units (unknown) date) Index unknown) (unknown) (no (unknown) (unknown) CK-MB (CK-2) (units (u nknown) date) unknown) (unknown) (no (unknown) (unknown) Calcium 6.6 L (units ( unknown) date) unknown) (unknown) (no (unknown) (unknown) Calcium (units (unkno wn) date) unknown) (unknown) (no (unknown) (unknown) Carbon Dioxide 23 (units (unknown) date) unknown) (unknown) (no (unknown) (unknown) Carbon Dioxide (units (unknown) date) unknown) (unknown) (no (unknown) (unknown) Chlamy pneumoniae (units (unknown) date) PCR Not detected unknown) (unknown) (no (unknown) (unknown) Chlamy pneumoniae (units (unknown) date) PCR unknown) (unknown) (no (unknown) (unknown) Chloride 107 (units (u nknown) date) unknown) (unknown) (no (unknown) (unknown) Chloride (units (unkno wn) date) unknown) (unknown) (no (unknown) (unknown) Code status: Full (units (unknown) date) code unknown) (unknown) (no (unknown) (unknown) Coronavirus 229E (units (unknown) date) (PCR) Not detected unknown) (unknown) (no (unknown) (unknown) Coronavirus 229E (units (unknown) date) (PCR) unknown) (unknown) (no (unknown) (unknown) Coronavirus HKU1 (units (unknown) date) (PCR) Not detected unknown) (unknown) (no (unknown) (unknown) Coronavirus HKU1 (units (unknown) date) (PCR) unknown) (unknown) (no (unknown) (unknown) Coronavirus NL63 (units (unknown) date) (PCR) Not detected unknown) (unknown) (no (unknown) (unknown) Coronavirus NL63 (units (unknown) date) (PCR) unknown) (unknown) (no (unknown) (unknown) Coronavirus OC43 (units (unknown) date) (PCR) Not detected unknown) (unknown) (no (unknown) (unknown) Coronavirus OC43 (units (unknown) date) (PCR) unknown) (unknown) (no (unknown) (unknown) Creatinine 0.54 (units (unknown) date) unknown) (unknown) (no (unknown) (unknown) Creatinine (units (unk nown) date) unknown) (unknown) (no (unknown) (unknown) Critical Care (units ( unknown) date) time: unknown) (unknown) (no (unknown) (unknown) D-Dimer 2351 H (units (unknown) date) unknown) (unknown) (no (unknown) (unknown) D-Dimer (units (unkno wn) date) unknown) (unknown) (no (unknown) (unknown) : 1990 (units (unknown) date) Acct:[id number] unknown) (unknown) (no (unknown) (unknown) DVT prophylaxis: (units (unknown) date) Enoxaparin unknown) (unknown) (no (unknown) (unknown) Date Patient Seen: (units (unknown) date) 02/08/22 unknown) (unknown) (no (unknown) (unknown) Date of Service: (units (unknown) date) 02/07/22 unknown) (unknown) (no (unknown) (unknown) Deep Vein (units (unkn own) date) Thrombosis/Pulmonar unknown) y Embolism Present on Admission: No (unknown) (no (unknown) (unknown) Dispo: 1-2 more (units (unknown) date) days until fevers unknown) improve and cultures negative at 48 hours. (unknown) (no (unknown) (unknown) Entero/Rhino (PCR) (units (unknown) date) Not detected unknown) (unknown) (no (unknown) (unknown) Entero/Rhino (PCR) (units (unknown) date) unknown) (unknown) (no (unknown) (unknown) Eos # (Auto) 0 (units (unknown) date) unknown) (unknown) (no (unknown) (unknown) Eos # (Auto) (units (u nknown) date) unknown) (unknown) (no (unknown) (unknown) Eos % (Auto) 0.0 L (units (unknown) date) unknown) (unknown) (no (unknown) (unknown) Eos % (Auto) (units (u nknown) date) unknown) (unknown) (no (unknown) (unknown) Estimated GFR > 60 (units (unknown) date) unknown) (unknown) (no (unknown) (unknown) Estimated GFR (units ( unknown) date) unknown) (unknown) (no (unknown) (unknown) Exam Narrative: (units (unknown) date) unknown) (unknown) (no (unknown) (unknown) Exam (units (unkno wn) date) unknown) (unknown) (no (unknown) (unknown) Extremities: No (units (unknown) date) skin lesions on unknown) arms or legs, no edema or rash (unknown) (no (unknown) (unknown) General: Presently (units (unknown) date) patient is alert unknown) and intermittently agitated (unknown) (no (unknown) (unknown) Glucose 64 L (units (u nknown) date) unknown) (unknown) (no (unknown) (unknown) Glucose (units (unkno wn) date) unknown) (unknown) (no (unknown) (unknown) HEENT: There is (units (unknown) date) extensive areas of unknown) erythema and scabbing on the top and back of (unknown) (no (unknown) (unknown) Hct 28.0 L (units (unk nown) date) unknown) (unknown) (no (unknown) (unknown) Hct (units (unkno wn) date) unknown) (unknown) (no (unknown) (unknown) Heart: Regular (units (unknown) date) rate and rhythm, no unknown) murmur (unknown) (no (unknown) (unknown) Hgb 9.3 L (units (unkn own) date) unknown) (unknown) (no (unknown) (unknown) Hgb (units (unkno wn) date) unknown) (unknown) (no (unknown) (unknown) 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) (unknown) (no (unknown) (unknown) History of (units (unk nown) date) pulmonary embolism unknown) (unknown) (no (unknown) (unknown) Human (units (unkno wn) date) Metapneumovir PCR unknown) Not detected (unknown) (no (unknown) (unknown) Human (units (unkno wn) date) Metapneumovir PCR unknown) (unknown) (no (unknown) (unknown) I spent a total of (units (unknown) date) [] minutes of unknown) critical care time on this patient's care (unknown) (no (unknown) (unknown) Influenza A (units (un known) date) (RT-PCR) Flu a unknown) negative (unknown) (no (unknown) (unknown) Influenza A (units (un known) date) (RT-PCR) unknown) (unknown) (no (unknown) (unknown) Influenza B (units (un known) date) (RT-PCR) Flu b unknown) negative (unknown) (no (unknown) (unknown) Influenza B (units (un known) date) (RT-PCR) unknown) (unknown) (no (unknown) (unknown) Influenza Type A (units (unknown) date) (PCR) Not detected unknown) (unknown) (no (unknown) (unknown) Influenza Type A (units (unknown) date) (PCR) unknown) (unknown) (no (unknown) (unknown) Influenza Type B (units (unknown) date) (PCR) Not detected unknown) (unknown) (no (unknown) (unknown) Influenza Type B (units (unknown) date) (PCR) unknown) (unknown) (no (unknown) (unknown) Interval history: (units (unknown) date) unknown) (unknown) (no (unknown) (unknown) [facility] (units (unknown) date) [address] unknown) [place] [address] (unknown) (no (unknown) (unknown) Laboratory Results (units (unknown) date) - last 24 hr unknown) (unknown) (no (unknown) (unknown) Labs (units (unkno wn) date) unknown) (unknown) (no (unknown) (unknown) Labs: (units (unkno wn) date) unknown) (unknown) (no (unknown) (unknown) Lungs: Clear to (units (unknown) date) auscultation unknown) (unknown) (no (unknown) (unknown) Lymph # (Auto) (units (unknown) date) 1000 L unknown) (unknown) (no (unknown) (unknown) Lymph # (Auto) (units (unknown) date) unknown) (unknown) (no (unknown) (unknown) Lymph % (Auto) (units (unknown) date) 21.3 L unknown) (unknown) (no (unknown) (unknown) Lymph % (Auto) (units (unknown) date) unknown) (unknown) (no (unknown) (unknown) M. pneumoniae (units ( unknown) date) (PCR) Not detected unknown) (unknown) (no (unknown) (unknown) M. pneumoniae (units ( unknown) date) (PCR) unknown) (unknown) (no (unknown) (unknown) [id number] (units (unk nown) date) unknown) (unknown) (no (unknown) (unknown) MCH 29.0 (units (unkno wn) date) unknown) (unknown) (no (unknown) (unknown) MCH (units (unkno wn) date) unknown) (unknown) (no (unknown) (unknown) MCHC 33.3 (units (unkn own) date) unknown) (unknown) (no (unknown) (unknown) MCHC (units (unkno wn) date) unknown) (unknown) (no (unknown) (unknown) MCV 87.1 (units (unkno wn) date) unknown) (unknown) (no (unknown) (unknown) MCV (units (unkno wn) date) unknown) (unknown) (no (unknown) (unknown) Magnesium 2.1 (units ( unknown) date) unknown) (unknown) (no (unknown) (unknown) Magnesium (units (unkn own) date) unknown) (unknown) (no (unknown) (unknown) Medical History (units (unknown) date) (Reviewed 02/08/22 unknown) @ 16:42 by Asa Khan MD) (unknown) (no (unknown) (unknown) Butts # (Auto) 300 (units (unknown) date) unknown) (unknown) (no (unknown) (unknown) Butts # (Auto) (units ( unknown) date) unknown) (unknown) (no (unknown) (unknown) Butts % (Auto) 7.2 (units (unknown) date) unknown) (unknown) (no (unknown) (unknown) Butts % (Auto) (units ( unknown) date) unknown) (unknown) (no (unknown) (unknown) Narrative (units (unkn own) date) unknown) (unknown) (no (unknown) (unknown) Nasal Screen MRSA (units (unknown) date) (PCR) Negative for unknown) mrsa (unknown) (no (unknown) (unknown) Nasal Screen MRSA (units (unknown) date) (PCR) unknown) (unknown) (no (unknown) (unknown) Neck: Trachea (units ( unknown) date) midline, supple, no unknown) thyromegaly (unknown) (no (unknown) (unknown) Neurological: (units ( unknown) date) Nonverbal, no unknown) localizing signs (unknown) (no (unknown) (unknown) Neut # (Auto) 3400 (units (unknown) date) unknown) (unknown) (no (unknown) (unknown) Neut # (Auto) (units ( unknown) date) unknown) (unknown) (no (unknown) (unknown) Neut % (Auto) 71.2 (units (unknown) date) unknown) (unknown) (no (unknown) (unknown) Neut % (Auto) (units ( unknown) date) unknown) (unknown) (no (unknown) (unknown) No drainage from (units (unknown) date) eyes. unknown) (unknown) (no (unknown) (unknown) No periorbital or (units (unknown) date) facial edema. unknown) Pupils equal and reactive. Conjunctiva clear. (unknown) (no (unknown) (unknown) Objective (units (unkn own) date) unknown) (unknown) (no (unknown) (unknown) Oxygen Delivery (units (unknown) date) Method Room Air unknown) (unknown) (no (unknown) (unknown) Oxygen Flow Rate 0 (units (unknown) date) unknown) (unknown) (no (unknown) (unknown) Oxygen Flow Rate (units (unknown) date) unknown) (unknown) (no (unknown) (unknown) PFSH (units (unkno wn) date) unknown) (unknown) (no (unknown) (unknown) Parainfluenza 1 (units (unknown) date) (PCR) Not detected unknown) (unknown) (no (unknown) (unknown) Parainfluenza 1 (units (unknown) date) (PCR) unknown) (unknown) (no (unknown) (unknown) Parainfluenza 2 (units (unknown) date) (PCR) Not detected unknown) (unknown) (no (unknown) (unknown) Parainfluenza 2 (units (unknown) date) (PCR) unknown) (unknown) (no (unknown) (unknown) Parainfluenza 3 (units (unknown) date) (PCR) Not detected unknown) (unknown) (no (unknown) (unknown) Parainfluenza 3 (units (unknown) date) (PCR) unknown) (unknown) (no (unknown) (unknown) Parainfluenza 4 (units (unknown) date) (PCR) Not detected unknown) (unknown) (no (unknown) (unknown) Parainfluenza 4 (units (unknown) date) (PCR) unknown) (unknown) (no (unknown) (unknown) Patient (units (unkno wn) date) intermittently unknown) agitated and shaking in bed restraints. Yells out in (unknown) (no (unknown) (unknown) Patient: (units (unkno wn) date) GeneVanessa Lakshmi unknown) MR#: (unknown) (no (unknown) (unknown) Plt Count 115 L (units (unknown) date) unknown) (unknown) (no (unknown) (unknown) Plt Count (units (unkn own) date) unknown) (unknown) (no (unknown) (unknown) Potassium 3.0 L (units (unknown) date) unknown) (unknown) (no (unknown) (unknown) Potassium (units (unkn own) date) unknown) (unknown) (no (unknown) (unknown) Procalcitonin 0.87 (units (unknown) date) H unknown) (unknown) (no (unknown) (unknown) Procalcitonin 1.08 (units (unknown) date) H unknown) (unknown) (no (unknown) (unknown) Procalcitonin (units ( unknown) date) unknown) (unknown) (no (unknown) (unknown) Progress Note (units ( unknown) date) unknown) (unknown) (no (unknown) (unknown) Prolactin 33.7 H (units (unknown) date) unknown) (unknown) (no (unknown) (unknown) Prolactin (units (unkn own) date) unknown) (unknown) (no (unknown) (unknown) Provider: (units (unkn own) date) Yaakov Costa unknown) D.O. (unknown) (no (unknown) (unknown) Pulse Oximetry 100 (units (unknown) date) 100 unknown) (unknown) (no (unknown) (unknown) Pulse Oximetry 100 (units (unknown) date) 99 unknown) (unknown) (no (unknown) (unknown) Pulse Oximetry 82 (units (unknown) date) L 97 unknown) (unknown) (no (unknown) (unknown) Pulse Oximetry 90 (units (unknown) date) L unknown) (unknown) (no (unknown) (unknown) Pulse Oximetry 92 (units (unknown) date) unknown) (unknown) (no (unknown) (unknown) Pulse Oximetry 98 (units (unknown) date) 99 unknown) (unknown) (no (unknown) (unknown) Pulse Oximetry 98 (units (unknown) date) unknown) (unknown) (no (unknown) (unknown) Pulse Oximetry 99 (units (unknown) date) 99 unknown) (unknown) (no (unknown) (unknown) Pulse Oximetry 99 (units (unknown) date) unknown) (unknown) (no (unknown) (unknown) Pulse Oximetry (units (unknown) date) unknown) (unknown) (no (unknown) (unknown) Pulse Rate 106 H (units (unknown) date) 87 unknown) (unknown) (no (unknown) (unknown) Pulse Rate 78 (units ( unknown) date) unknown) (unknown) (no (unknown) (unknown) Pulse Rate 81 97 H (units (unknown) date) unknown) (unknown) (no (unknown) (unknown) Pulse Rate 83 (units ( unknown) date) unknown) (unknown) (no (unknown) (unknown) Pulse Rate 86 (units ( unknown) date) unknown) (unknown) (no (unknown) (unknown) Pulse Rate 87 88 (units (unknown) date) unknown) (unknown) (no (unknown) (unknown) Pulse Rate 92 H 80 (units (unknown) date) unknown) (unknown) (no (unknown) (unknown) Pulse Rate 93 H (units (unknown) date) unknown) (unknown) (no (unknown) (unknown) Pulse Rate 95 H 79 (units (unknown) date) unknown) (unknown) (no (unknown) (unknown) Pulse Rate 96 H (units (unknown) date) unknown) (unknown) (no (unknown) (unknown) Quality (units (unkno wn) date) unknown) (unknown) (no (unknown) (unknown) RBC 3.22 L (units (unk nown) date) unknown) (unknown) (no (unknown) (unknown) RBC (units (unkno wn) date) unknown) (unknown) (no (unknown) (unknown) RDW 14.7 (units (unkno wn) date) unknown) (unknown) (no (unknown) (unknown) RDW (units (unkno wn) date) unknown) (unknown) (no (unknown) (unknown) RSV (PCR) Negative (units (unknown) date) unknown) (unknown) (no (unknown) (unknown) RSV (PCR) Not (units ( unknown) date) detected unknown) (unknown) (no (unknown) (unknown) RSV (PCR) (units (unkn own) date) unknown) (unknown) (no (unknown) (unknown) Respiratory Rate (units (unknown) date) 20 unknown) (unknown) (no (unknown) (unknown) Respiratory Rate (units (unknown) date) 24 43 H unknown) (unknown) (no (unknown) (unknown) Respiratory Rate (units (unknown) date) 29 H unknown) (unknown) (no (unknown) (unknown) Respiratory Rate (units (unknown) date) 34 H unknown) (unknown) (no (unknown) (unknown) Respiratory Rate (units (unknown) date) 36 H unknown) (unknown) (no (unknown) (unknown) Respiratory Rate (units (unknown) date) 37 H unknown) (unknown) (no (unknown) (unknown) Respiratory Rate (units (unknown) date) 40 H 19 unknown) (unknown) (no (unknown) (unknown) Respiratory Rate (units (unknown) date) 41 H 25 H unknown) (unknown) (no (unknown) (unknown) Respiratory Rate (units (unknown) date) 42 H 38 H unknown) (unknown) (no (unknown) (unknown) Respiratory Rate (units (unknown) date) 43 H 39 H unknown) (unknown) (no (unknown) (unknown) Respiratory Rate (units (unknown) date) 44 H unknown) (unknown) (no (unknown) (unknown) Result Diagrams: (units (unknown) date) unknown) (unknown) (no (unknown) (unknown) SARS-CoV-2 (PCR) (units (unknown) date) Negative unknown) (unknown) (no (unknown) (unknown) SARS-CoV-2 (PCR) (units (unknown) date) Not detected unknown) (unknown) (no (unknown) (unknown) SARS-CoV-2 (PCR) (units (unknown) date) unknown) (unknown) (no (unknown) (unknown) Schizophrenia (units ( unknown) date) unknown) (unknown) (no (unknown) (unknown) Signed (units (unkno wn) date) By:<Electronically unknown) signed by Yaakov Costa D.O.> (unknown) (no (unknown) (unknown) Smoking Status: (units (unknown) date) Never smoker unknown) (unknown) (no (unknown) (unknown) Social History (units (unknown) date) unknown) (unknown) (no (unknown) (unknown) Sodium 137 (units (unk nown) date) unknown) (unknown) (no (unknown) (unknown) Sodium (units (unkno wn) date) unknown) (unknown) (no (unknown) (unknown) Subjective (units (unk nown) date) unknown) (unknown) (no (unknown) (unknown) Surrogate (units (unkn own) date) decisionmaker: Mom unknown) (unknown) (no (unknown) (unknown) Temperature 100.0 (units (unknown) date) F H 100.2 F H unknown) (unknown) (no (unknown) (unknown) Temperature 100.4 (units (unknown) date) F H unknown) (unknown) (no (unknown) (unknown) Temperature 100.6 (units (unknown) date) F H unknown) (unknown) (no (unknown) (unknown) Temperature 98.1 F (units (unknown) date) 98.6 F unknown) (unknown) (no (unknown) (unknown) Temperature 98.2 F (units (unknown) date) 98.4 F 98.4 F unknown) (unknown) (no (unknown) (unknown) Temperature 98.2 F (units (unknown) date) 98.6 F unknown) (unknown) (no (unknown) (unknown) Temperature 98.4 F (units (unknown) date) unknown) (unknown) (no (unknown) (unknown) Temperature 98.6 F (units (unknown) date) 98.4 F unknown) (unknown) (no (unknown) (unknown) Temperature 98.8 F (units (unknown) date) 98.4 F unknown) (unknown) (no (unknown) (unknown) Temperature 99.0 F (units (unknown) date) 98.1 F unknown) (unknown) (no (unknown) (unknown) Temperature 99.1 F (units (unknown) date) 99.5 F unknown) (unknown) (no (unknown) (unknown) Temperature 99.7 F (units (unknown) date) H unknown) (unknown) (no (unknown) (unknown) Time Spent With (units (unknown) date) Patient unknown) (unknown) (no (unknown) (unknown) Troponin I < 0.012 (units (unknown) date) unknown) (unknown) (no (unknown) (unknown) Troponin I (units (unk nown) date) unknown) (unknown) (no (unknown) (unknown) U Benzodiazepines (units (unknown) date) Scrn Negative unknown) (unknown) (no (unknown) (unknown) U Benzodiazepines (units (unknown) date) Scrn unknown) (unknown) (no (unknown) (unknown) U Marijuana (THC) (units (unknown) date) Screen Negative unknown) (unknown) (no (unknown) (unknown) U Marijuana (THC) (units (unknown) date) Screen unknown) (unknown) (no (unknown) (unknown) U Methamphetamines (units (unknown) date) Scrn Negative unknown) (unknown) (no (unknown) (unknown) U Methamphetamines (units (unknown) date) Scrn unknown) (unknown) (no (unknown) (unknown) U Opiates 300ng/mL (units (unknown) date) cut Negative unknown) (unknown) (no (unknown) (unknown) U Opiates 300ng/mL (units (unknown) date) cut unknown) (unknown) (no (unknown) (unknown) U Tricyclic (units (un known) date) Antidepress unknown) Negative (unknown) (no (unknown) (unknown) U Tricyclic (units (un known) date) Antidepress unknown) (unknown) (no (unknown) (unknown) Ur Amphetamines (units (unknown) date) Screen Negative unknown) (unknown) (no (unknown) (unknown) Ur Amphetamines (units (unknown) date) Screen unknown) (unknown) (no (unknown) (unknown) Ur Barbiturates (units (unknown) date) Screen Negative unknown) (unknown) (no (unknown) (unknown) Ur Barbiturates (units (unknown) date) Screen unknown) (unknown) (no (unknown) (unknown) Ur Culture (units (unk nown) date) Indicated? Cult not unknown) indicated (unknown) (no (unknown) (unknown) Ur Culture (units (unk nown) date) Indicated? unknown) (unknown) (no (unknown) (unknown) Ur MDMA Scrn (units (u nknown) date) (Ecstasy) Negative unknown) (unknown) (no (unknown) (unknown) Ur MDMA Scrn (units (u nknown) date) (Ecstasy) unknown) (unknown) (no (unknown) (unknown) Ur Oxycodone (units (u nknown) date) Screen Negative unknown) (unknown) (no (unknown) (unknown) Ur Oxycodone (units (u nknown) date) Screen unknown) (unknown) (no (unknown) (unknown) Ur Phencyclidine (units (unknown) date) Scrn Negative unknown) (unknown) (no (unknown) (unknown) Ur Phencyclidine (units (unknown) date) Scrn unknown) (unknown) (no (unknown) (unknown) Ur Squamous Epith (units (unknown) date) Cells 1-5 /hpf unknown) (unknown) (no (unknown) (unknown) Ur Squamous Epith (units (unknown) date) Cells unknown) (unknown) (no (unknown) (unknown) Ur Transition (units ( unknown) date) Epith Cell 0-1/hpf unknown) (unknown) (no (unknown) (unknown) Ur Transition (units ( unknown) date) Epith Cell unknown) (unknown) (no (unknown) (unknown) Urine Bacteria (units (unknown) date) None seen unknown) (unknown) (no (unknown) (unknown) Urine Bacteria (units (unknown) date) unknown) (unknown) (no (unknown) (unknown) Urine Cocaine (units ( unknown) date) Screen Negative unknown) (unknown) (no (unknown) (unknown) Urine Cocaine (units ( unknown) date) Screen unknown) (unknown) (no (unknown) (unknown) Urine Methadone (units (unknown) date) Screen Negative unknown) (unknown) (no (unknown) (unknown) Urine Methadone (units (unknown) date) Screen unknown) (unknown) (no (unknown) (unknown) Urine (units (unknown) date) Test Negative unknown) (unknown) (no (unknown) (unknown) Urine (units (unknown) date) Test unknown) (unknown) (no (unknown) (unknown) Urine RBC None (units (unknown) date) seen unknown) (unknown) (no (unknown) (unknown) Urine RBC (units (unkn own) date) unknown) (unknown) (no (unknown) (unknown) Urine WBC 1-5/hpf (units (unknown) date) unknown) (unknown) (no (unknown) (unknown) Urine WBC (units (unkn own) date) unknown) (unknown) (no (unknown) (unknown) VTE (units (unkno wn) date) unknown) (unknown) (no (unknown) (unknown) Vital Signs (units (un known) date) unknown) (unknown) (no (unknown) (unknown) WBC 4.7 (units (unkno wn) date) unknown) (unknown) (no (unknown) (unknown) WBC (units (unkno wn) date) unknown) (unknown) (no (unknown) (unknown) [Embedded Image (units (unknown) date) Not Available] unknown) (unknown) (no (unknown) (unknown) bedtime and (units (un known) date) increase fluoxetine unknown) from 10 mg to 20 mg daily (unknown) (no (unknown) (unknown) from bilateral (units (unknown) date) external ear areas. unknown) No erythema or tenderness over the mastoids. (unknown) (no (unknown) (unknown) household members: (units (unknown) date) family unknown) (unknown) (no (unknown) (unknown) infiltrate (units (unk nown) date) unknown) (unknown) (no (unknown) (unknown) [place] language as (units (unknown) date) well. Parents at unknown) bedside and requesting her central line be (unknown) (no (unknown) (unknown) patient not (units (un known) date) currently on unknown) anticoagulant (unknown) (no (unknown) (unknown) procalcitonin is (units (unknown) date) elevated unknown) (unknown) (no (unknown) (unknown) removed. Continued (units (unknown) date) to have fevers unknown) throughout the day. (unknown) (no (unknown) (unknown) scalp, paranasal (units (unknown) date) areas, nape of unknown) neck. Also there is some crusting and drainage (unknown) (no (unknown) (unknown) such as drug (units (u nknown) date) overdose, serotonin unknown) syndrome or acute PE (see below) (unknown) (no (unknown) (unknown) tenderness or (units ( unknown) date) erythema to suggest unknown) mastoiditis, no meningeal signs (unknown) (no (unknown) (unknown) the ED after (units (u nknown) date) standard fluid unknown) resuscitation (unknown) (no (unknown) (unknown) today; this time (units (unknown) date) is exclusive of unknown) procedural time. (unknown) (no (unknown) (unknown) x-ray (units (unkno wn) date) unknown) Result panel 490 (unknown) (no date) (unknown) (unknown) 0 /ul (unkn own) (unknown) (no date) (unknown) (unknown) 0 /ul (unkn own) (unknown) (no date) (unknown) (unknown) 0.2 % (unkn own) (unknown) (no date) (unknown) (unknown) 1.1 % (unkn own) (unknown) (no date) (unknown) (unknown) 106 x10 3/ul (unkn own) (unknown) (no date) (unknown) (unknown) 1100 /ul (unkn own) (unknown) (no date) (unknown) (unknown) 14.9 % (unkn own) (unknown) (no date) (unknown) (unknown) 2400 /ul (unkn own) (unknown) (no date) (unknown) (unknown) 27.9 % (unkn own) (unknown) (no date) (unknown) (unknown) 27.9 % (unkn own) (unknown) (no date) (unknown) (unknown) 28.7 pg (unkn own) (unknown) (no date) (unknown) (unknown) 3.22 x10 6/ul (unkn own) (unknown) (no date) (unknown) (unknown) 3.8 x10 3/ul (unkn own) (unknown) (no date) (unknown) (unknown) 3.8 x10 3/ul (unkn own) (unknown) (no date) (unknown) (unknown) 300 /ul (unkn own) (unknown) (no date) (unknown) (unknown) 33.1 % (unkn own) (unknown) (no date) (unknown) (unknown) 63.8 % (unkn own) (unknown) (no date) (unknown) (unknown) 7.0 % (unkn own) (unknown) (no date) (unknown) (unknown) 86.7 fl (unkn own) (unknown) (no date) (unknown) (unknown) 9.2 g/dl (unkn own) Result panel 491 (unknown) (no date) (unknown) (unknown) > 60 ml/min (unkn own) (unknown) (no date) (unknown) (unknown) > 60 ml/min (unkn own) (unknown) (no date) (unknown) (unknown) 0.64 mg/dl (unkn own) (unknown) (no date) (unknown) (unknown) 112 mmol/l (unkn own) (unknown) (no date) (unknown) (unknown) 138 mmol/l (unkn own) (unknown) (no date) (unknown) (unknown) 138 mmol/l (unkn own) (unknown) (no date) (unknown) (unknown) 18 mmol/l (unkn own) (unknown) (no date) (unknown) (unknown) 3.7 mmol/l (unkn own) (unknown) (no date) (unknown) (unknown) 6 mg/dl (unkn own) (unknown) (no date) (unknown) (unknown) 60 mg/dl (unkn own) (unknown) (no date) (unknown) (unknown) 60 mg/dl (unkn own) (unknown) (no date) (unknown) (unknown) 7.1 mg/dl (unkn own) (unknown) (no date) (unknown) (unknown) 9.4 (units unknown) (unknown) Result panel 492 (unknown) (no date) (unknown) (unknown) (no value) (units (un known) unknown) (unknown) (no date) (unknown) (unknown) NO GROWTH (units (unk nown) AFTER 48 unknown) HOURS Result panel 493 (unknown) (no (unknown) (unknown) (no value) (units (unk nown) date) unknown) (unknown) (no (unknown) (unknown) (past 8 hours): (units (unknown) date) unknown) (unknown) (no (unknown) (unknown) -CTA chest on (units ( unknown) date) 02/07 negative unknown) for PE (unknown) (no (unknown) (unknown) -IV azithromycin (units (unknown) date) added for unknown) atypical coverage due to interstitial infiltrates on (unknown) (no (unknown) (unknown) -able to wean (units ( unknown) date) off levophed on unknown) 02/08 (unknown) (no (unknown) (unknown) -blood cultures (units (unknown) date) x2 no growth to unknown) date (unknown) (no (unknown) (unknown) -chest x-ray (units (u nknown) date) personally unknown) reviewed and shows nonspecific diffuse interstitial (unknown) (no (unknown) (unknown) -continue on (units (u nknown) date) vancomycin and unknown) Zosyn started in the ED (unknown) (no (unknown) (unknown) -continue (units (unkn own) date) restraints due to unknown) pulling at lines (unknown) (no (unknown) (unknown) -differential (units ( unknown) date) diagnosis unknown) includes non infectious source of fever and hypotension (unknown) (no (unknown) (unknown) -dimer 2351 (units (un known) date) unknown) (unknown) (no (unknown) (unknown) -event was (units (unk nown) date) reportedly in unknown) 2018, unknown whether IVC filter was ever removed, (unknown) (no (unknown) (unknown) -nasal MRSA swab (units (unknown) date) negative, will unknown) consider stopping vanco (unknown) (no (unknown) (unknown) -normal (units (unkno wn) date) urinalysis, unknown) respiratory panel PCR, normal WBC without left shift but (unknown) (no (unknown) (unknown) -patient got (units (u nknown) date) Zyprexa in the ED unknown) (unknown) (no (unknown) (unknown) -patient (units (unkno wn) date) presents febrile, unknown) tachycardic and tachypneic and became hypotensive in (unknown) (no (unknown) (unknown) -per discussion (units (unknown) date) with Psychiatry, unknown) increased olanzapine from 50 mg to 20 mg at (unknown) (no (unknown) (unknown) -possible source (units (unknown) date) is bacteremia due unknown) to skin lesions on scalp and neck, no mastoid (unknown) (no (unknown) (unknown) -right IJ (units (unkn own) date) central line unknown) placed in the ED, will remove today per parents request (unknown) (no (unknown) (unknown) -urine tox (units (unk nown) date) screen negative unknown) (unknown) (no (unknown) (unknown) -wound culture (units ( unknown) date) obtained from unknown) right ear drainage, currently only mixed skin iman (unknown) (no (unknown) (unknown) 02:00 02/09/22 (units (unknown) date) unknown) (unknown) (no (unknown) (unknown) 04:00 02/09/22 (units (unknown) date) unknown) (unknown) (no (unknown) (unknown) 06:00 (units (unkno wn) date) unknown) (unknown) (no (unknown) (unknown) 08:00 02/09/22 (units (unknown) date) unknown) (unknown) (no (unknown) (unknown) 08:41 (units (unkno wn) date) unknown) (unknown) (no (unknown) (unknown) 1. Septic shock, (units (unknown) date) shock now unknown) resolved (unknown) (no (unknown) (unknown) 02/07/22 (units (unkno wn) date) 02/08/22 02/08/22 unknown) (unknown) (no (unknown) (unknown) 02/08/22 (units (unkno wn) date) 02/09/22 02/09/22 unknown) (unknown) (no (unknown) (unknown) 02/09/22 04:56 (units (unknown) date) unknown) (unknown) (no (unknown) (unknown) 02/09/22 (units (unkno wn) date) unknown) (unknown) (no (unknown) (unknown) 14:24 04:56 (units (un known) date) 04:56 unknown) (unknown) (no (unknown) (unknown) 16:00 09:30 (units (un known) date) 12:00 unknown) (unknown) (no (unknown) (unknown) 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 Schizophrenia (units (unknown) date) unknown) (unknown) (no (unknown) (unknown) Abdomen: Soft (units ( unknown) date) and nontender, no unknown) HSM (unknown) (no (unknown) (unknown) Age/Sex: 31 / F (units (unknown) date) unknown) (unknown) (no (unknown) (unknown) Albumin 2.5 L (units ( unknown) date) unknown) (unknown) (no (unknown) (unknown) Albumin (units (unkno wn) date) unknown) (unknown) (no (unknown) (unknown) Assessment + (units (u nknown) date) Plan narrative: unknown) (unknown) (no (unknown) (unknown) Assessment + (units (u nknown) date) Plan unknown) (unknown) (no (unknown) (unknown) BUN 6 L (units (unkno wn) date) unknown) (unknown) (no (unknown) (unknown) BUN (units (unkno wn) date) unknown) (unknown) (no (unknown) (unknown) BUN/Creatinine (units (unknown) date) Ratio 9.4 unknown) (unknown) (no (unknown) (unknown) BUN/Creatinine (units (unknown) date) Ratio unknown) (unknown) (no (unknown) (unknown) Baso # (Auto) 0 (units (unknown) date) unknown) (unknown) (no (unknown) (unknown) Baso # (Auto) (units ( unknown) date) unknown) (unknown) (no (unknown) (unknown) Baso % (Auto) (units ( unknown) date) 1.1 unknown) (unknown) (no (unknown) (unknown) Baso % (Auto) (units ( unknown) date) unknown) (unknown) (no (unknown) (unknown) Blood Pressure (units (unknown) date) 88/50 L 90/53 L unknown) 90/51 L (unknown) (no (unknown) (unknown) Blood Pressure (units (unknown) date) 95/54 L unknown) (unknown) (no (unknown) (unknown) Calcium 7.1 L (units ( unknown) date) unknown) (unknown) (no (unknown) (unknown) Calcium (units (unkno wn) date) unknown) (unknown) (no (unknown) (unknown) Carbon Dioxide (units (unknown) date) 18 L unknown) (unknown) (no (unknown) (unknown) Carbon Dioxide (units (unknown) date) unknown) (unknown) (no (unknown) (unknown) Chloride 112 H (units (unknown) date) unknown) (unknown) (no (unknown) (unknown) Chloride (units (unkno wn) date) unknown) (unknown) (no (unknown) (unknown) Code status: (units (u nknown) date) Full code unknown) (unknown) (no (unknown) (unknown) Creatinine 0.64 (units (unknown) date) unknown) (unknown) (no (unknown) (unknown) Creatinine (units (unk nown) date) unknown) (unknown) (no (unknown) (unknown) Critical Care (units ( unknown) date) time: unknown) (unknown) (no (unknown) (unknown) : 1990 (units (unknown) date) Acct:[id number] unknown) (unknown) (no (unknown) (unknown) DVT prophylaxis: (units (unknown) date) Enoxaparin unknown) (unknown) (no (unknown) (unknown) Date of Service: (units (unknown) date) 02/07/22 unknown) (unknown) (no (unknown) (unknown) Deep Vein (units (unkn own) date) Thrombosis/Pulmon unknown) lucia Embolism Present on Admission: No (unknown) (no (unknown) (unknown) Dispo: 1-2 more (units (unknown) date) days until fevers unknown) improve and cultures negative at 48 hours. (unknown) (no (unknown) (unknown) Eos # (Auto) 0 (units (unknown) date) unknown) (unknown) (no (unknown) (unknown) Eos # (Auto) (units (u nknown) date) unknown) (unknown) (no (unknown) (unknown) Eos % (Auto) 0.2 (units (unknown) date) L unknown) (unknown) (no (unknown) (unknown) Eos % (Auto) (units (u nknown) date) unknown) (unknown) (no (unknown) (unknown) Estimated GFR > (units (unknown) date) 60 unknown) (unknown) (no (unknown) (unknown) Estimated GFR (units ( unknown) date) unknown) (unknown) (no (unknown) (unknown) Exam Narrative: (units (unknown) date) unknown) (unknown) (no (unknown) (unknown) Exam (units (unkno wn) date) unknown) (unknown) (no (unknown) (unknown) Extremities: No (units (unknown) date) skin lesions on unknown) arms or legs, no edema or rash (unknown) (no (unknown) (unknown) General: (units (unkno wn) date) Presently patient unknown) is alert and intermittently agitated (unknown) (no (unknown) (unknown) Glucose 60 L (units (u nknown) date) unknown) (unknown) (no (unknown) (unknown) Glucose (units (unkno wn) date) unknown) (unknown) (no (unknown) (unknown) HEENT: There is (units (unknown) date) extensive areas unknown) of erythema and scabbing on the top and back of (unknown) (no (unknown) (unknown) Hct 27.9 L (units (unk nown) date) unknown) (unknown) (no (unknown) (unknown) Hct (units (unkno wn) date) unknown) (unknown) (no (unknown) (unknown) Heart: Regular (units (unknown) date) rate and rhythm, unknown) no murmur (unknown) (no (unknown) (unknown) Hgb 9.2 L (units (unkn own) date) unknown) (unknown) (no (unknown) (unknown) Hgb (units (unkno wn) date) unknown) (unknown) (no (unknown) (unknown) 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) (unknown) (no (unknown) (unknown) 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 (unknown) (no (unknown) (unknown) I spent a total (units (unknown) date) of [] minutes of unknown) critical care time on this patient's care (unknown) (no (unknown) (unknown) [facility] (units (unknown) date) [address] unknown) [place] [address] (unknown) (no (unknown) (unknown) Laboratory (units (unk nown) date) Results - last unknown) hr (unknown) (no (unknown) (unknown) Labs (units (unkno wn) date) unknown) (unknown) (no (unknown) (unknown) Labs: (units (unkno wn) date) unknown) (unknown) (no (unknown) (unknown) Lungs: Clear to (units (unknown) date) auscultation unknown) (unknown) (no (unknown) (unknown) Lymph # (Auto) (units (unknown) date) 1100 unknown) (unknown) (no (unknown) (unknown) Lymph # (Auto) (units (unknown) date) unknown) (unknown) (no (unknown) (unknown) Lymph % (Auto) (units (unknown) date) 27.9 unknown) (unknown) (no (unknown) (unknown) Lymph % (Auto) (units (unknown) date) unknown) (unknown) (no (unknown) (unknown) [id number] (units (unk nown) date) unknown) (unknown) (no (unknown) (unknown) MCH 28.7 (units (unkno wn) date) unknown) (unknown) (no (unknown) (unknown) MCH (units (unkno wn) date) unknown) (unknown) (no (unknown) (unknown) MCHC 33.1 (units (unkn own) date) unknown) (unknown) (no (unknown) (unknown) MCHC (units (unkno wn) date) unknown) (unknown) (no (unknown) (unknown) MCV 86.7 (units (unkno wn) date) unknown) (unknown) (no (unknown) (unknown) MCV (units (unkno wn) date) unknown) (unknown) (no (unknown) (unknown) Medical History (units (unknown) date) (Reviewed unknown) 02/08/22 @ 16:42 by Asa Khan MD) (unknown) (no (unknown) (unknown) Butts # (Auto) (units ( unknown) date) 300 unknown) (unknown) (no (unknown) (unknown) Butts # (Auto) (units ( unknown) date) unknown) (unknown) (no (unknown) (unknown) Butts % (Auto) (units ( unknown) date) 7.0 unknown) (unknown) (no (unknown) (unknown) Butts % (Auto) (units ( unknown) date) unknown) (unknown) (no (unknown) (unknown) Narrative (units (unkn own) date) unknown) (unknown) (no (unknown) (unknown) Nasal Screen (units (u nknown) date) MRSA (PCR) unknown) Negative for mrsa (unknown) (no (unknown) (unknown) Nasal Screen (units (u nknown) date) MRSA (PCR) unknown) (unknown) (no (unknown) (unknown) Neck: Trachea (units ( unknown) date) midline, supple, unknown) no thyromegaly (unknown) (no (unknown) (unknown) Neurological: (units ( unknown) date) Nonverbal, no unknown) localizing signs (unknown) (no (unknown) (unknown) Neut # (Auto) (units ( unknown) date) 2400 unknown) (unknown) (no (unknown) (unknown) Neut # (Auto) (units ( unknown) date) unknown) (unknown) (no (unknown) (unknown) Neut % (Auto) (units ( unknown) date) 63.8 unknown) (unknown) (no (unknown) (unknown) Neut % (Auto) (units ( unknown) date) unknown) (unknown) (no (unknown) (unknown) No drainage from (units (unknown) date) eyes. unknown) (unknown) (no (unknown) (unknown) No periorbital (units (unknown) date) or facial edema. unknown) Pupils equal and reactive. Conjunctiva clear. (unknown) (no (unknown) (unknown) Objective (units (unkn own) date) unknown) (unknown) (no (unknown) (unknown) Oxygen Delivery (units (unknown) date) Method Room Air unknown) (unknown) (no (unknown) (unknown) Oxygen Flow Rate (units (unknown) date) 0 unknown) (unknown) (no (unknown) (unknown) PFSH (units (unkno wn) date) unknown) (unknown) (no (unknown) (unknown) Patient: (units (unkno wn) date) Vanessa Mills unknown) B MR#: (unknown) (no (unknown) (unknown) Plt Count 106 L (units (unknown) date) unknown) (unknown) (no (unknown) (unknown) Plt Count (units (unkn own) date) unknown) (unknown) (no (unknown) (unknown) Potassium 3.7 (units ( unknown) date) unknown) (unknown) (no (unknown) (unknown) Potassium (units (unkn own) date) unknown) (unknown) (no (unknown) (unknown) Progress Note (units ( unknown) date) unknown) (unknown) (no (unknown) (unknown) Provider: (units (unkn own) date) Yaakov Costa unknown) D.O. (unknown) (no (unknown) (unknown) Pulse Oximetry (units (unknown) date) 99 unknown) (unknown) (no (unknown) (unknown) Pulse Oximetry (units (unknown) date) unknown) (unknown) (no (unknown) (unknown) Quality (units (unkno wn) date) unknown) (unknown) (no (unknown) (unknown) RBC 3.22 L (units (unk nown) date) unknown) (unknown) (no (unknown) (unknown) RBC (units (unkno wn) date) unknown) (unknown) (no (unknown) (unknown) RDW 14.9 H (units (unk nown) date) unknown) (unknown) (no (unknown) (unknown) RDW (units (unkno wn) date) unknown) (unknown) (no (unknown) (unknown) Result Diagrams: (units (unknown) date) unknown) (unknown) (no (unknown) (unknown) Schizophrenia (units ( unknown) date) unknown) (unknown) (no (unknown) (unknown) Signed By: (units (unk nown) date) unknown) (unknown) (no (unknown) (unknown) Smoking Status: (units (unknown) date) Never smoker unknown) (unknown) (no (unknown) (unknown) Social History (units (unknown) date) unknown) (unknown) (no (unknown) (unknown) Sodium 138 (units (unk nown) date) unknown) (unknown) (no (unknown) (unknown) Sodium (units (unkno wn) date) unknown) (unknown) (no (unknown) (unknown) Surrogate (units (unkn own) date) decisionmaker: unknown) Mom (unknown) (no (unknown) (unknown) Temperature 99.8 (units (unknown) date) F H unknown) (unknown) (no (unknown) (unknown) Temperature (units (un known) date) unknown) (unknown) (no (unknown) (unknown) Time Spent With (units (unknown) date) Patient unknown) (unknown) (no (unknown) (unknown) VTE (units (unkno wn) date) unknown) (unknown) (no (unknown) (unknown) Vancomycin Peak (units (unknown) date) 31.2 unknown) (unknown) (no (unknown) (unknown) Vancomycin Peak (units (unknown) date) unknown) (unknown) (no (unknown) (unknown) Vancomycin (units (unk nown) date) Trough 13.1 unknown) (unknown) (no (unknown) (unknown) Vancomycin (units (unk nown) date) Trough unknown) (unknown) (no (unknown) (unknown) Vital Signs (units (un known) date) unknown) (unknown) (no (unknown) (unknown) WBC 3.8 L (units (unkn own) date) unknown) (unknown) (no (unknown) (unknown) WBC (units (unkno wn) date) unknown) (unknown) (no (unknown) (unknown) [Embedded Image (units (unknown) date) Not Available] unknown) (unknown) (no (unknown) (unknown) bedtime and (units (un known) date) increase unknown) fluoxetine from 10 mg to 20 mg daily (unknown) (no (unknown) (unknown) from bilateral (units (unknown) date) external ear unknown) areas. No erythema or tenderness over the mastoids. (unknown) (no (unknown) (unknown) household (units (unkn own) date) members: family unknown) (unknown) (no (unknown) (unknown) infiltrate (units (unk nown) date) unknown) (unknown) (no (unknown) (unknown) patient not (units (un known) date) currently on unknown) anticoagulant (unknown) (no (unknown) (unknown) procalcitonin is (units (unknown) date) elevated unknown) (unknown) (no (unknown) (unknown) scalp, paranasal (units (unknown) date) areas, nape of unknown) neck. Also there is some crusting and drainage (unknown) (no (unknown) (unknown) such as drug (units (u nknown) date) overdose, unknown) serotonin syndrome or acute PE (see below) (unknown) (no (unknown) (unknown) tenderness or (units ( unknown) date) erythema to unknown) suggest mastoiditis, no meningeal signs (unknown) (no (unknown) (unknown) the ED after (units (u nknown) date) standard fluid unknown) resuscitation (unknown) (no (unknown) (unknown) today; this time (units (unknown) date) is exclusive of unknown) procedural time. (unknown) (no (unknown) (unknown) x-ray (units (unkno wn) date) unknown) Result panel 494 (unknown) (no date) (unknown) (unknown) (no value) (units (un known) unknown) (unknown) (no date) (unknown) (unknown) NO GROWTH (units (unk nown) AFTER 48 unknown) HOURS Result panel 495 (unknown) (no (unknown) (unknown) (no value) (units (unk nown) date) unknown) (unknown) (no (unknown) (unknown) Identification (units (unknown) date) to follow unknown) (unknown) (no (unknown) (unknown) LIGHT (units (unkno wn) date) unknown) (unknown) (no (unknown) (unknown) Moderate growth (units (unknown) date) - Mixed skin unknown) iman (unknown) (no (unknown) (unknown) No WBC seen (units (un known) date) unknown) (unknown) (no (unknown) (unknown) No WBC seen (units (un known) date) unknown) (unknown) (no (unknown) (unknown) Scant (units (unkno wn) date) unknown) (unknown) (no (unknown) (unknown) Test not (units (unkno wn) date) performed unknown) (unknown) (no (unknown) (unknown) YEAYeast (units (unkno wn) date) unknown) Result panel 496 (unknown) (no (unknown) (unknown) (no value) (units (unk nown) date) unknown) (unknown) (no (unknown) (unknown) 1. Fluid in the (units (unknown) date) mastoids may be unknown) inflammatory or postinflammatory. (unknown) (no (unknown) (unknown) 1. Liquid stool (units (unknown) date) is present in the unknown) colon, suggestive of a nonspecific diarrheal (unknown) (no (unknown) (unknown) 02/09/22 (units (unkno wn) date) unknown) (unknown) (no (unknown) (unknown) [address] [place] [address] (units (unknown) date) unknown) (unknown) (no (unknown) (unknown) 18:11. (units (unkno wn) date) unknown) (unknown) (no (unknown) (unknown) 2. Otherwise, no (units (unknown) date) definite acute unknown) abnormality identified within the abdomen or (unknown) (no (unknown) (unknown) 07/27/2018, (units (unk nown) date) unknown) (unknown) (no (unknown) (unknown) : [id number] (units (u nknown) date) unknown) (unknown) (no (unknown) (unknown) ABDOMEN: (units (unkno wn) date) unknown) (unknown) (no (unknown) (unknown) Abdominal Nodes: (units (unknown) date) No retroperitoneal unknown) or mesenteric adenopathy by size criteria. (unknown) (no (unknown) (unknown) Accession Number: (units (unknown) date) [id number] unknown) (unknown) (no (unknown) (unknown) Accession Number: (units (unknown) date) [id number] unknown) (unknown) (no (unknown) (unknown) Accession Number: (units (unknown) date) [id number] unknown) (unknown) (no (unknown) (unknown) Adrenal Glands: (units (unknown) date) Unremarkable. unknown) (unknown) (no (unknown) (unknown) After the (units (unkn own) date) administration of unknown) intravenous contrast, 3.0 mm axial images acquired (unknown) (no (unknown) (unknown) After the (units (unkn own) date) administration of unknown) intravenous contrast, axial sections acquired from (unknown) (no (unknown) (unknown) Age/Sex: 31 / F (units (unknown) date) Date of Service: unknown) (unknown) (no (unknown) (unknown) [place] (units ( unknown) date) [id number] unknown) (unknown) (no (unknown) (unknown) Approved by: (units (u nknown) date) chet Encarnacion M.D. on 02/09/2022 at 17:15 (unknown) (no (unknown) (unknown) Approved by: Miki (units (unknown) date) Figu[place]a Alvarado on unknown) 02/09/2022 at 16:35 (unknown) (no (unknown) (unknown) Approved by: Chana (units (unknown) date) [place] Pollard on unknown) 02/10/2022 at 8:21 (unknown) (no (unknown) (unknown) Biliary ducts: (units (unknown) date) Unremarkable. unknown) (unknown) (no (unknown) (unknown) Bladder: A Miller (units (unknown) date) catheter is unknown) present. (unknown) (no (unknown) (unknown) Bones: Sclerosis (units (unknown) date) present at both unknown) iliac bones adjacent to the SI joints as (unknown) (no (unknown) (unknown) COMPARISON: None. (units (unknown) date) unknown) (unknown) (no (unknown) (unknown) COMPARISON: (units (un known) date) [facility] unknown) [facility], CT, CT ABDOMEN PELVIS WITH CONTRAST, (unknown) (no (unknown) (unknown) CT Scan Report (units (unknown) date) unknown) (unknown) (no (unknown) (unknown) : 1990 (units (unknown) date) Acct:[id number] unknown) (unknown) (no (unknown) (unknown) Dictated by: (units (u nknown) date) suraj Encarnacion) [place] on 02/09/2022 at 16:56 (unknown) (no (unknown) (unknown) Dictated by: Chana (units (unknown) date) Figu[place]a Pollard on unknown) 02/10/2022 at 8:20 (unknown) (no (unknown) (unknown) Ethmoid Air (units (un known) date) Cells: No bony unknown) remodeling or destruction. Sinuses are clear. (unknown) (no (unknown) (unknown) FINDINGS: This is (units (unknown) date) a somewhat limited unknown) study given patient motion during the (unknown) (no (unknown) (unknown) FINDINGS: (units (unkn own) date) unknown) (unknown) (no (unknown) (unknown) For (units (unkno wn) date) unknown) (unknown) (no (unknown) (unknown) Frontal Sinuses: (units (unknown) date) No bony remodeling unknown) or destruction. Sinuses are clear. (unknown) (no (unknown) (unknown) Gallbladder: (units (u nknown) date) Unremarkable. unknown) (unknown) (no (unknown) (unknown) IMPRESSION: No (units (unknown) date) deep vein unknown) thrombosis of the bilateral lower extremities. (unknown) (no (unknown) (unknown) IMPRESSION: (units (un known) date) unknown) (unknown) (no (unknown) (unknown) INDICATIONS: (units (u nknown) date) HISTORY OF DEEP unknown) VEIN THROMBOSIS AND ELEVATED D-DIMER (unknown) (no (unknown) (unknown) INDICATIONS: (units (u nknown) date) fever of unknown unknown) origin (unknown) (no (unknown) (unknown) INDICATIONS: (units (u nknown) date) fever of unknown unknown) origin, having ear drainage (unknown) (no (unknown) (unknown) Image quality: (units (unknown) date) Excellent. unknown) (unknown) (no (unknown) (unknown) Image quality: (units (unknown) date) Suboptimal due to unknown) motion artifact and streak artifact from the (unknown) (no (unknown) (unknown) [facility] (units (unknown) date) unknown) (unknown) (no (unknown) (unknown) Kidneys and (units (un known) date) Ureters: unknown) Unremarkable. (unknown) (no (unknown) (unknown) Left: The common (units (unknown) date) femoral, femoral unknown) and popliteal veins are normally (unknown) (no (unknown) (unknown) Liver: (units (unkno wn) date) Unremarkable. unknown) (unknown) (no (unknown) (unknown) Loc: ICU 228-1 (units (unknown) date) unknown) (unknown) (no (unknown) (unknown) Lung bases: No (units (unknown) date) pleural effusion. unknown) (unknown) (no (unknown) (unknown) Maxillary (units (unkn own) date) Sinuses: No bony unknown) remodeling or destruction. Sinuses are clear. (unknown) (no (unknown) (unknown) Miscellaneous: (units (unknown) date) Fluid in both unknown) mastoids present with air-fluid level on the (unknown) (no (unknown) (unknown) Ordering (units (unkno wn) date) Provider: unknown) Yaakov Costa D.O. (unknown) (no (unknown) (unknown) Ostiomeatal (units (un known) date) Complexes: unknown) Ostiomeatal complexes are patent. No Cali cells. (unknown) (no (unknown) (unknown) PELVIS: (units (unkno wn) date) unknown) (unknown) (no (unknown) (unknown) PROCEDURE: CT (units ( unknown) date) ABDOMEN PELVIS W unknown) CON (unknown) (no (unknown) (unknown) PROCEDURE: CT (units ( unknown) date) SINUS W CON unknown) (unknown) (no (unknown) (unknown) PROCEDURE: US (units ( unknown) date) PERIPH VENOUS LOW unknown) EXTREM BI (unknown) (no (unknown) (unknown) Pancreas: (units (unkn own) date) Unremarkable. unknown) (unknown) (no (unknown) (unknown) Patient: (units (unkno wn) date) Vanessa Mills unknown) B MR# (unknown) (no (unknown) (unknown) Pelvic Nodes: No (units (unknown) date) enlarged lymph unknown) nodes. (unknown) (no (unknown) (unknown) Pelvic Organs: (units (unknown) date) Unremarkable CT unknown) appearance (unknown) (no (unknown) (unknown) Peritoneum: No (units (unknown) date) free air or unknown) substantial free fluid. (unknown) (no (unknown) (unknown) Procedure: CT (units ( unknown) date) abdomen pelvis w unknown) con (unknown) (no (unknown) (unknown) Procedure: CT (units ( unknown) date) sinus w con unknown) (unknown) (no (unknown) (unknown) Procedure: US (units ( unknown) date) periph venous low unknown) extrem bi (unknown) (no (unknown) (unknown) Real-time (units (unkn own) date) imaging, as well unknown) as color and pulse Doppler interrogation, were (unknown) (no (unknown) (unknown) Right: The common (units (unknown) date) femoral, femoral unknown) and popliteal veins are normally (unknown) (no (unknown) (unknown) Signed (units (unkno wn) date) unknown) (unknown) (no (unknown) (unknown) Sphenoid Sinuses: (units (unknown) date) No bony remodeling unknown) or destruction. Sinuses are clear. (unknown) (no (unknown) (unknown) Spleen: (units (unkno wn) date) Unremarkable. unknown) (unknown) (no (unknown) (unknown) Stomach and (units (un known) date) Bowel: No bowel unknown) obstruction. Liquid stool is present in the (unknown) (no (unknown) (unknown) TECHNIQUE: (units (unk nown) date) unknown) (unknown) (no (unknown) (unknown) Ultrasound Report (units (unknown) date) unknown) (unknown) (no (unknown) (unknown) Vessels: Aorta (units (unknown) date) and inferior vena unknown) cava are normal in size. (unknown) (no (unknown) (unknown) adjustment (units (unk nown) date) unknown) (unknown) (no (unknown) (unknown) and/or kV (units (unkn own) date) according to unknown) patient size. (unknown) (no (unknown) (unknown) arms. (units (unkno wn) date) unknown) (unknown) (no (unknown) (unknown) bases to the (units (u nknown) date) pubic symphysis. unknown) Coronal and sagittal reformats were performed. (unknown) (no (unknown) (unknown) before. (units (unkno wn) date) unknown) (unknown) (no (unknown) (unknown) colon. No (units (unkn own) date) unknown) (unknown) (no (unknown) (unknown) compressible, and (units (unknown) date) free unknown) (unknown) (no (unknown) (unknown) compressible, and (units (unknown) date) unknown) (unknown) (no (unknown) (unknown) compression (units (un known) date) unknown) (unknown) (no (unknown) (unknown) dose reduction, (units (unknown) date) the following was unknown) used: automated exposure control, adjustment (unknown) (no (unknown) (unknown) evidence of acute (units (unknown) date) appendicitis. unknown) (unknown) (no (unknown) (unknown) exam. (units (unkno wn) date) unknown) (unknown) (no (unknown) (unknown) free of (units (unkno wn) date) intraluminal unknown) thrombus. Color and pulse Doppler demonstrate normal (unknown) (no (unknown) (unknown) from the (units (unkno wn) date) unknown) (unknown) (no (unknown) (unknown) frontal sinuses (units (unknown) date) to the mid-sella, unknown) with coronal and sagittal reformats. For (unknown) (no (unknown) (unknown) intravascular (units ( unknown) date) flow. There is unknown) normal augmentation response to distal (unknown) (no (unknown) (unknown) maneuver. (units (unkn own) date) unknown) (unknown) (no (unknown) (unknown) of intraluminal (units (unknown) date) thrombus. Color unknown) and pulse Doppler demonstrate normal phasic (unknown) (no (unknown) (unknown) of mA and/or kV (units (unknown) date) according to unknown) patient size. (unknown) (no (unknown) (unknown) of mA (units (unkno wn) date) unknown) (unknown) (no (unknown) (unknown) patient's (units (unkn own) date) unknown) (unknown) (no (unknown) (unknown) pelvis. (units (unkno wn) date) unknown) (unknown) (no (unknown) (unknown) performed of (units (u nknown) date) unknown) (unknown) (no (unknown) (unknown) phasic (units (unkno wn) date) unknown) (unknown) (no (unknown) (unknown) radiation dose (units (unknown) date) reduction, the unknown) following was used: automated exposure control, (unknown) (no (unknown) (unknown) radiation (units (unkn own) date) unknown) (unknown) (no (unknown) (unknown) right. No (units (unkn own) date) unknown) (unknown) (no (unknown) (unknown) septal erosions (units (unknown) date) resorption. The unknown) middle ears not well depicted. (unknown) (no (unknown) (unknown) state. (units (unkno wn) date) unknown) (unknown) (no (unknown) (unknown) the deep veins of (units (unknown) date) both legs from the unknown) inguinal ligament to the popliteal fossa. (unknown) (no (unknown) (unknown) the lung (units (unkno wn) date) unknown) Result panel 497 (unknown) (no (unknown) (unknown) (no value) (units (unk nown) date) unknown) (unknown) (no (unknown) (unknown) (past 8 hours): (units (unknown) date) unknown) (unknown) (no (unknown) (unknown) -CT sinus and CT (units (unknown) date) abd pelvis unknown) ordered (unknown) (no (unknown) (unknown) -CTA chest on (units ( unknown) date) 02/07 negative unknown) for PE (unknown) (no (unknown) (unknown) -IV azithromycin (units (unknown) date) added for unknown) atypical coverage due to interstitial infiltrates on (unknown) (no (unknown) (unknown) -LE doppler as (units (unknown) date) above unknown) (unknown) (no (unknown) (unknown) -LE doppler (units (un known) date) bilateral to rule unknown) out PE (unknown) (no (unknown) (unknown) -able to wean (units ( unknown) date) off levophed on unknown) 02/08 (unknown) (no (unknown) (unknown) -ativan IV PRN (units (unknown) date) for agitation unknown) (unknown) (no (unknown) (unknown) -blood cultures (units (unknown) date) x2 no growth to unknown) date (unknown) (no (unknown) (unknown) -chest x-ray (units (u nknown) date) personally unknown) reviewed and shows nonspecific diffuse interstitial (unknown) (no (unknown) (unknown) -continue on (units (u nknown) date) vancomycin and unknown) Zosyn started in the ED (unknown) (no (unknown) (unknown) -continue (units (unkn own) date) restraints due to unknown) pulling at lines (unknown) (no (unknown) (unknown) -continues to (units (u nknown) date) have fevers unknown) despite being on broad spectrum abx for over 48 hours, (unknown) (no (unknown) (unknown) -differential (units ( unknown) date) diagnosis unknown) includes non infectious source of fever and hypotension (unknown) (no (unknown) (unknown) -dimer 2351 (units (un known) date) unknown) (unknown) (no (unknown) (unknown) -event was (units (unk nown) date) reportedly in unknown) 2018, unknown whether IVC filter was ever removed, (unknown) (no (unknown) (unknown) -nasal MRSA swab (units (unknown) date) negative, will unknown) consider stopping vanco (unknown) (no (unknown) (unknown) -normal (units (unkno wn) date) urinalysis, unknown) respiratory panel PCR, normal WBC without left shift but (unknown) (no (unknown) (unknown) -patient got (units (u nknown) date) Zyprexa in the ED unknown) (unknown) (no (unknown) (unknown) -patient (units (unkno wn) date) presents febrile, unknown) tachycardic and tachypneic and became hypotensive in (unknown) (no (unknown) (unknown) -per discussion (units (unknown) date) with Psychiatry, unknown) increased olanzapine from 50 mg to 20 mg at (unknown) (no (unknown) (unknown) -possible source (units (unknown) date) is bacteremia due unknown) to skin lesions on scalp and neck, no mastoid (unknown) (no (unknown) (unknown) -right IJ (units (unkn own) date) central line unknown) placed in the ED, will remove today per parents request (unknown) (no (unknown) (unknown) -urine tox (units (unk nown) date) screen negative unknown) (unknown) (no (unknown) (unknown) -will consider (units (unknown) date) NMS vs serotonin unknown) syndrome given patient on SSRI and zyprexa if (unknown) (no (unknown) (unknown) -wound culture (units ( unknown) date) obtained from unknown) right ear drainage, currently only mixed skin iman (unknown) (no (unknown) (unknown) 02:00 02/09/22 (units (unknown) date) unknown) (unknown) (no (unknown) (unknown) 04:00 02/09/22 (units (unknown) date) unknown) (unknown) (no (unknown) (unknown) 06:00 (units (unkno wn) date) unknown) (unknown) (no (unknown) (unknown) 08:00 02/09/22 (units (unknown) date) unknown) (unknown) (no (unknown) (unknown) 08:41 (units (unkno wn) date) unknown) (unknown) (no (unknown) (unknown) 1. Septic shock, (units (unknown) date) shock now unknown) resolved but persistently febrile (unknown) (no (unknown) (unknown) 02/07/22 (units (unkno wn) date) 02/08/22 02/08/22 unknown) (unknown) (no (unknown) (unknown) 02/08/22 (units (unkno wn) date) 02/09/22 02/09/22 unknown) (unknown) (no (unknown) (unknown) 02/09/22 04:56 (units (unknown) date) unknown) (unknown) (no (unknown) (unknown) 02/09/22 1655 (units ( unknown) date) unknown) (unknown) (no (unknown) (unknown) 02/09/22 (units (unkno wn) date) unknown) (unknown) (no (unknown) (unknown) 14:24 04:56 (units (un known) date) 04:56 unknown) (unknown) (no (unknown) (unknown) 16:00 09:30 (units (un known) date) 12:00 unknown) (unknown) (no (unknown) (unknown) 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 Schizophrenia (units (unknown) date) unknown) (unknown) (no (unknown) (unknown) Abdomen: Soft (units ( unknown) date) and nontender, no unknown) HSM (unknown) (no (unknown) (unknown) Age/Sex: 31 / F (units (unknown) date) unknown) (unknown) (no (unknown) (unknown) Albumin 2.5 L (units ( unknown) date) unknown) (unknown) (no (unknown) (unknown) Albumin (units (unkno wn) date) unknown) (unknown) (no (unknown) (unknown) Assessment + (units (u nknown) date) Plan narrative: unknown) (unknown) (no (unknown) (unknown) Assessment + (units (u nknown) date) Plan unknown) (unknown) (no (unknown) (unknown) BUN 6 L (units (unkno wn) date) unknown) (unknown) (no (unknown) (unknown) BUN (units (unkno wn) date) unknown) (unknown) (no (unknown) (unknown) BUN/Creatinine (units (unknown) date) Ratio 9.4 unknown) (unknown) (no (unknown) (unknown) BUN/Creatinine (units (unknown) date) Ratio unknown) (unknown) (no (unknown) (unknown) Baso # (Auto) 0 (units (unknown) date) unknown) (unknown) (no (unknown) (unknown) Baso # (Auto) (units ( unknown) date) unknown) (unknown) (no (unknown) (unknown) Baso % (Auto) (units ( unknown) date) 1.1 unknown) (unknown) (no (unknown) (unknown) Baso % (Auto) (units ( unknown) date) unknown) (unknown) (no (unknown) (unknown) Blood Pressure (units (unknown) date) 88/50 L 90/53 L unknown) 90/51 L (unknown) (no (unknown) (unknown) Blood Pressure (units (unknown) date) 95/54 L unknown) (unknown) (no (unknown) (unknown) Calcium 7.1 L (units ( unknown) date) unknown) (unknown) (no (unknown) (unknown) Calcium (units (unkno wn) date) unknown) (unknown) (no (unknown) (unknown) Carbon Dioxide (units (unknown) date) 18 L unknown) (unknown) (no (unknown) (unknown) Carbon Dioxide (units (unknown) date) unknown) (unknown) (no (unknown) (unknown) Chloride 112 H (units (unknown) date) unknown) (unknown) (no (unknown) (unknown) Chloride (units (unkno wn) date) unknown) (unknown) (no (unknown) (unknown) Code status: (units (u nknown) date) Full code unknown) (unknown) (no (unknown) (unknown) Creatinine 0.64 (units (unknown) date) unknown) (unknown) (no (unknown) (unknown) Creatinine (units (unk nown) date) unknown) (unknown) (no (unknown) (unknown) Critical Care (units ( unknown) date) time: unknown) (unknown) (no (unknown) (unknown) : 1990 (units (unknown) date) Acct:[id number] unknown) (unknown) (no (unknown) (unknown) DVT prophylaxis: (units (unknown) date) Enoxaparin unknown) (unknown) (no (unknown) (unknown) Date Patient (units (u nknown) date) Seen: 02/09/22 unknown) (unknown) (no (unknown) (unknown) Date of Service: (units (unknown) date) 02/07/22 unknown) (unknown) (no (unknown) (unknown) Deep Vein (units (unkn own) date) Thrombosis/Pulmon unknown) lucia Embolism Present on Admission: No (unknown) (no (unknown) (unknown) Dispo: Pending (units (unknown) date) improvement of unknown) fevers. (unknown) (no (unknown) (unknown) Eos # (Auto) 0 (units (unknown) date) unknown) (unknown) (no (unknown) (unknown) Eos # (Auto) (units (u nknown) date) unknown) (unknown) (no (unknown) (unknown) Eos % (Auto) 0.2 (units (unknown) date) L unknown) (unknown) (no (unknown) (unknown) Eos % (Auto) (units (u nknown) date) unknown) (unknown) (no (unknown) (unknown) Estimated GFR > (units (unknown) date) 60 unknown) (unknown) (no (unknown) (unknown) Estimated GFR (units ( unknown) date) unknown) (unknown) (no (unknown) (unknown) Exam Narrative: (units (unknown) date) unknown) (unknown) (no (unknown) (unknown) Exam (units (unkno wn) date) unknown) (unknown) (no (unknown) (unknown) Extremities: No (units (unknown) date) skin lesions on unknown) arms or legs, no edema or rash (unknown) (no (unknown) (unknown) General: (units (unkno wn) date) Presently patient unknown) is alert and intermittently agitated (unknown) (no (unknown) (unknown) Glucose 60 L (units (u nknown) date) unknown) (unknown) (no (unknown) (unknown) Glucose (units (unkno wn) date) unknown) (unknown) (no (unknown) (unknown) HEENT: There is (units (unknown) date) extensive areas unknown) of erythema and scabbing on the top and back of (unknown) (no (unknown) (unknown) Hct 27.9 L (units (unk nown) date) unknown) (unknown) (no (unknown) (unknown) Hct (units (unkno wn) date) unknown) (unknown) (no (unknown) (unknown) Heart: Regular (units (unknown) date) rate and rhythm, unknown) no murmur (unknown) (no (unknown) (unknown) Hgb 9.2 L (units (unkn own) date) unknown) (unknown) (no (unknown) (unknown) Hgb (units (unkno wn) date) unknown) (unknown) (no (unknown) (unknown) 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) (unknown) (no (unknown) (unknown) 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 (unknown) (no (unknown) (unknown) I spent a total (units (unknown) date) of [] minutes of unknown) critical care time on this patient's care (unknown) (no (unknown) (unknown) Interval (units (unkno wn) date) history: unknown) (unknown) (no (unknown) (unknown) [facility] (units (unknown) date) [address] unknown) [place] [id number] (unknown) (no (unknown) (unknown) Laboratory (units (unk nown) date) Results - last 24 unknown) hr (unknown) (no (unknown) (unknown) Labs (units (unkno wn) date) unknown) (unknown) (no (unknown) (unknown) Labs: (units (unkno wn) date) unknown) (unknown) (no (unknown) (unknown) Lungs: Clear to (units (unknown) date) auscultation unknown) (unknown) (no (unknown) (unknown) Lymph # (Auto) (units (unknown) date) 1100 unknown) (unknown) (no (unknown) (unknown) Lymph # (Auto) (units (unknown) date) unknown) (unknown) (no (unknown) (unknown) Lymph % (Auto) (units (unknown) date) 27.9 unknown) (unknown) (no (unknown) (unknown) Lymph % (Auto) (units (unknown) date) unknown) (unknown) (no (unknown) (unknown) [id number] (units (unk nown) date) unknown) (unknown) (no (unknown) (unknown) MCH 28.7 (units (unkno wn) date) unknown) (unknown) (no (unknown) (unknown) MCH (units (unkno wn) date) unknown) (unknown) (no (unknown) (unknown) MCHC 33.1 (units (unkn own) date) unknown) (unknown) (no (unknown) (unknown) MCHC (units (unkno wn) date) unknown) (unknown) (no (unknown) (unknown) MCV 86.7 (units (unkno wn) date) unknown) (unknown) (no (unknown) (unknown) MCV (units (unkno wn) date) unknown) (unknown) (no (unknown) (unknown) Medical History (units (unknown) date) (Reviewed unknown) 02/08/22 @ 16:42 by Asa Khan MD) (unknown) (no (unknown) (unknown) Butts # (Auto) (units ( unknown) date) 300 unknown) (unknown) (no (unknown) (unknown) Butts # (Auto) (units ( unknown) date) unknown) (unknown) (no (unknown) (unknown) Butts % (Auto) (units ( unknown) date) 7.0 unknown) (unknown) (no (unknown) (unknown) Butts % (Auto) (units ( unknown) date) unknown) (unknown) (no (unknown) (unknown) Narrative (units (unkn own) date) unknown) (unknown) (no (unknown) (unknown) Nasal Screen (units (u nknown) date) MRSA (PCR) unknown) Negative for mrsa (unknown) (no (unknown) (unknown) Nasal Screen (units (u nknown) date) MRSA (PCR) unknown) (unknown) (no (unknown) (unknown) Neck: Trachea (units ( unknown) date) midline, supple, unknown) no thyromegaly (unknown) (no (unknown) (unknown) Neurological: (units ( unknown) date) Nonverbal, no unknown) localizing signs (unknown) (no (unknown) (unknown) Neut # (Auto) (units ( unknown) date) 2400 unknown) (unknown) (no (unknown) (unknown) Neut # (Auto) (units ( unknown) date) unknown) (unknown) (no (unknown) (unknown) Neut % (Auto) (units ( unknown) date) 63.8 unknown) (unknown) (no (unknown) (unknown) Neut % (Auto) (units ( unknown) date) unknown) (unknown) (no (unknown) (unknown) Objective (units (unkn own) date) unknown) (unknown) (no (unknown) (unknown) Oxygen Delivery (units (unknown) date) Method Room Air unknown) (unknown) (no (unknown) (unknown) Oxygen Flow Rate (units (unknown) date) 0 unknown) (unknown) (no (unknown) (unknown) PFSH (units (unkno wn) date) unknown) (unknown) (no (unknown) (unknown) Patient still (units ( unknown) date) quite agitated unknown) and restrained to the bed. Yells out occasionally (unknown) (no (unknown) (unknown) Patient: (units (unkno wn) date) Vanessa Mills unknown) B MR#: (unknown) (no (unknown) (unknown) Plt Count 106 L (units (unknown) date) unknown) (unknown) (no (unknown) (unknown) Plt Count (units (unkn own) date) unknown) (unknown) (no (unknown) (unknown) Potassium 3.7 (units ( unknown) date) unknown) (unknown) (no (unknown) (unknown) Potassium (units (unkn own) date) unknown) (unknown) (no (unknown) (unknown) Progress Note (units ( unknown) date) unknown) (unknown) (no (unknown) (unknown) Provider: (units (unkn own) date) Yaakov Costa unknown) D.O. (unknown) (no (unknown) (unknown) Pulse Oximetry (units (unknown) date) 99 unknown) (unknown) (no (unknown) (unknown) Pulse Oximetry (units (unknown) date) unknown) (unknown) (no (unknown) (unknown) Pupils equal and (units (unknown) date) reactive. unknown) Conjunctiva clear. No drainage from eyes. (unknown) (no (unknown) (unknown) Quality (units (unkno wn) date) unknown) (unknown) (no (unknown) (unknown) RBC 3.22 L (units (unk nown) date) unknown) (unknown) (no (unknown) (unknown) RBC (units (unkno wn) date) unknown) (unknown) (no (unknown) (unknown) RDW 14.9 H (units (unk nown) date) unknown) (unknown) (no (unknown) (unknown) RDW (units (unkno wn) date) unknown) (unknown) (no (unknown) (unknown) Result Diagrams: (units (unknown) date) unknown) (unknown) (no (unknown) (unknown) Schizophrenia (units ( unknown) date) unknown) (unknown) (no (unknown) (unknown) Signed (units (unkno wn) date) By:<Electronicall unknown) y signed by Yaakov Costa, DDemarcoO.> (unknown) (no (unknown) (unknown) Smoking Status: (units (unknown) date) Never smoker unknown) (unknown) (no (unknown) (unknown) Social History (units (unknown) date) unknown) (unknown) (no (unknown) (unknown) Sodium 138 (units (unk nown) date) unknown) (unknown) (no (unknown) (unknown) Sodium (units (unkno wn) date) unknown) (unknown) (no (unknown) (unknown) Subjective (units (unk nown) date) unknown) (unknown) (no (unknown) (unknown) Surrogate (units (unkn own) date) decisionmaker: unknown) Mom (unknown) (no (unknown) (unknown) Temperature 99.8 (units (unknown) date) F H unknown) (unknown) (no (unknown) (unknown) Temperature (units (un known) date) unknown) (unknown) (no (unknown) (unknown) Time Spent With (units (unknown) date) Patient unknown) (unknown) (no (unknown) (unknown) VTE (units (unkno wn) date) unknown) (unknown) (no (unknown) (unknown) Vancomycin Peak (units (unknown) date) 31.2 unknown) (unknown) (no (unknown) (unknown) Vancomycin Peak (units (unknown) date) unknown) (unknown) (no (unknown) (unknown) Vancomycin (units (unk nown) date) Trough 13.1 unknown) (unknown) (no (unknown) (unknown) Vancomycin (units (unk nown) date) Trough unknown) (unknown) (no (unknown) (unknown) Vital Signs (units (un known) date) unknown) (unknown) (no (unknown) (unknown) WBC 3.8 L (units (unkn own) date) unknown) (unknown) (no (unknown) (unknown) WBC (units (unkno wn) date) unknown) (unknown) (no (unknown) (unknown) [Embedded Image (units (unknown) date) Not Available] unknown) (unknown) (no (unknown) (unknown) all infectious (units (unknown) date) workup negative, unknown) patient has lupus history but doubt this is (unknown) (no (unknown) (unknown) bedtime and (units (un known) date) increase unknown) fluoxetine from 10 mg to 20 mg daily (unknown) (no (unknown) (unknown) contributing (units (u nknown) date) unknown) (unknown) (no (unknown) (unknown) erythema or (units (un known) date) tenderness over unknown) the mastoids. No periorbital or facial edema. (unknown) (no (unknown) (unknown) household (units (unkn own) date) members: family unknown) (unknown) (no (unknown) (unknown) in foreign (units (unk nown) date) language. Parents unknown) at bedside and their questions were answered. (unknown) (no (unknown) (unknown) infiltrate (units (unk nown) date) unknown) (unknown) (no (unknown) (unknown) intrabdominal. (units (unknown) date) Or DVT as pt has unknown) history of this. (unknown) (no (unknown) (unknown) patient not (units (un known) date) currently on unknown) anticoagulant (unknown) (no (unknown) (unknown) procalcitonin is (units (unknown) date) elevated at 1.08, unknown) now down to 0.87 and will continue to trend (unknown) (no (unknown) (unknown) scalp, paranasal (units (unknown) date) areas, nape of unknown) neck with xeroform guaze on back of scalp. Also (unknown) (no (unknown) (unknown) such as drug (units (u nknown) date) overdose, unknown) serotonin syndrome or acute PE (see below) (unknown) (no (unknown) (unknown) tenderness or (units ( unknown) date) erythema to unknown) suggest mastoiditis, no meningeal signs (unknown) (no (unknown) (unknown) the ED after (units (u nknown) date) standard fluid unknown) resuscitation (unknown) (no (unknown) (unknown) there is some (units ( unknown) date) crusting and unknown) drainage from bilateral external ear areas. No (unknown) (no (unknown) (unknown) today; this time (units (unknown) date) is exclusive of unknown) procedural time. (unknown) (no (unknown) (unknown) will need to (units (u nknown) date) consider unknown) potential other sources of infection such as sinusitis or (unknown) (no (unknown) (unknown) x-ray (units (unkno wn) date) unknown) Result panel 498 (unknown) (no date) (unknown) (unknown) > 60 ml/min (unkn own) (unknown) (no date) (unknown) (unknown) > 60 ml/min (unkn own) (unknown) (no date) (unknown) (unknown) 0.63 mg/dl (unkn own) (unknown) (no date) (unknown) (unknown) 11.1 (units unknown) (unknown) (unknown) (no date) (unknown) (unknown) 110 mmol/l (unkn own) (unknown) (no date) (unknown) (unknown) 138 mmol/l (unkn own) (unknown) (no date) (unknown) (unknown) 138 mmol/l (unkn own) (unknown) (no date) (unknown) (unknown) 19 mmol/l (unkn own) (unknown) (no date) (unknown) (unknown) 3.1 mmol/l (unkn own) (unknown) (no date) (unknown) (unknown) 7 mg/dl (unkn own) (unknown) (no date) (unknown) (unknown) 7.2 mg/dl (unkn own) (unknown) (no date) (unknown) (unknown) 83 mg/dl (unkn own) (unknown) (no date) (unknown) (unknown) 83 mg/dl (unkn own) Result panel 499 (unknown) (no date) (unknown) (unknown) 0 /ul (unkn own) (unknown) (no date) (unknown) (unknown) 0 /ul (unkn own) (unknown) (no date) (unknown) (unknown) 0.4 % (unkn own) (unknown) (no date) (unknown) (unknown) 0.8 % (unkn own) (unknown) (no date) (unknown) (unknown) 102 x10 3/ul (unkn own) (unknown) (no date) (unknown) (unknown) 15.1 % (unkn own) (unknown) (no date) (unknown) (unknown) 200 /ul (unkn own) (unknown) (no date) (unknown) (unknown) 23.5 % (unkn own) (unknown) (no date) (unknown) (unknown) 2600 /ul (unkn own) (unknown) (no date) (unknown) (unknown) 28.3 % (unkn own) (unknown) (no date) (unknown) (unknown) 28.5 pg (unkn own) (unknown) (no date) (unknown) (unknown) 3.27 x10 6/ul (unkn own) (unknown) (no date) (unknown) (unknown) 3.8 x10 3/ul (unkn own) (unknown) (no date) (unknown) (unknown) 3.8 x10 3/ul (unkn own) (unknown) (no date) (unknown) (unknown) 32.9 % (unkn own) (unknown) (no date) (unknown) (unknown) 6.0 % (unkn own) (unknown) (no date) (unknown) (unknown) 69.3 % (unkn own) (unknown) (no date) (unknown) (unknown) 86.7 fl (unkn own) (unknown) (no date) (unknown) (unknown) 9.3 g/dl (unkn own) (unknown) (no date) (unknown) (unknown) 900 /ul (unkn own) Result panel 500 (unknown) (no date) (unknown) (unknown) 0.23 ng/ml (unkn own) (unknown) (no date) (unknown) (unknown) 0.23 ng/ml (unkn own) Result panel 501 (unknown) (no date) (unknown) (unknown) (no value) (units (un known) unknown) (unknown) (no date) (unknown) (unknown) NO GROWTH (units (unk nown) AFTER 72 unknown) HOURS Result panel 502 (unknown) (no date) (unknown) (unknown) (no value) (units (un known) unknown) (unknown) (no date) (unknown) (unknown) NO GROWTH (units (unk nown) AFTER 72 unknown) HOURS Result panel 503 (unknown) (no (unknown) (unknown) (no value) (units (unk nown) date) unknown) (unknown) (no (unknown) (unknown) CANALBCandida (units ( unknown) date) albicans unknown) (unknown) (no (unknown) (unknown) LIGHT (units (unkno wn) date) unknown) (unknown) (no (unknown) (unknown) Moderate growth (units (unknown) date) - Mixed skin unknown) iman (unknown) (no (unknown) (unknown) No WBC seen (units (un known) date) unknown) (unknown) (no (unknown) (unknown) No WBC seen (units (un known) date) unknown) (unknown) (no (unknown) (unknown) Scant (units (unkno wn) date) unknown) (unknown) (no (unknown) (unknown) Test not (units (unkno wn) date) performed unknown) Result panel 504 (unknown) (no (unknown) (unknown) (no value) (units (unk nown) date) unknown) (unknown) (no (unknown) (unknown) (past 8 hours): (units (unknown) date) unknown) (unknown) (no (unknown) (unknown) -CT sinus and CT (units (unknown) date) abd pelvis unknown) ordered (unknown) (no (unknown) (unknown) -CTA chest on (units ( unknown) date) 02/07 negative unknown) for PE (unknown) (no (unknown) (unknown) -IV azithromycin (units (unknown) date) added for unknown) atypical coverage due to interstitial infiltrates on (unknown) (no (unknown) (unknown) -LE doppler as (units (unknown) date) above unknown) (unknown) (no (unknown) (unknown) -LE doppler (units (un known) date) bilateral to rule unknown) out PE (unknown) (no (unknown) (unknown) -able to wean (units ( unknown) date) off levophed on unknown) 02/08 (unknown) (no (unknown) (unknown) -ativan IV PRN (units (unknown) date) for agitation unknown) (unknown) (no (unknown) (unknown) -blood cultures (units (unknown) date) x2 no growth to unknown) date (unknown) (no (unknown) (unknown) -chest x-ray (units (u nknown) date) personally unknown) reviewed and shows nonspecific diffuse interstitial (unknown) (no (unknown) (unknown) -continue on (units (u nknown) date) vancomycin and unknown) Zosyn started in the ED (unknown) (no (unknown) (unknown) -continue (units (unkn own) date) restraints due to unknown) pulling at lines (unknown) (no (unknown) (unknown) -continues to (units (u nknown) date) have fevers unknown) despite being on broad spectrum abx for over 48 hours, (unknown) (no (unknown) (unknown) -differential (units ( unknown) date) diagnosis unknown) includes non infectious source of fever and hypotension (unknown) (no (unknown) (unknown) -dimer 2351 (units (un known) date) unknown) (unknown) (no (unknown) (unknown) -event was (units (unk nown) date) reportedly in unknown) 2018, unknown whether IVC filter was ever removed, (unknown) (no (unknown) (unknown) -nasal MRSA swab (units (unknown) date) negative, will unknown) consider stopping vanco (unknown) (no (unknown) (unknown) -normal (units (unkno wn) date) urinalysis, unknown) respiratory panel PCR, normal WBC without left shift but (unknown) (no (unknown) (unknown) -patient got (units (u nknown) date) Zyprexa in the ED unknown) (unknown) (no (unknown) (unknown) -patient (units (unkno wn) date) presents febrile, unknown) tachycardic and tachypneic and became hypotensive in (unknown) (no (unknown) (unknown) -per discussion (units (unknown) date) with Psychiatry, unknown) increased olanzapine from 50 mg to 20 mg at (unknown) (no (unknown) (unknown) -possible source (units (unknown) date) is bacteremia due unknown) to skin lesions on scalp and neck, no mastoid (unknown) (no (unknown) (unknown) -right IJ (units (unkn own) date) central line unknown) placed in the ED, will remove today per parents request (unknown) (no (unknown) (unknown) -urine tox (units (unk nown) date) screen negative unknown) (unknown) (no (unknown) (unknown) -will consider (units (unknown) date) NMS vs serotonin unknown) syndrome given patient on SSRI and zyprexa if (unknown) (no (unknown) (unknown) -wound culture (units ( unknown) date) obtained from unknown) right ear drainage, currently only mixed skin iman (unknown) (no (unknown) (unknown) 04:00 02/10/22 (units (unknown) date) unknown) (unknown) (no (unknown) (unknown) 05:55 05:55 (units (un known) date) 05:55 unknown) (unknown) (no (unknown) (unknown) 08:00 (units (unkno wn) date) unknown) (unknown) (no (unknown) (unknown) 1. Septic shock, (units (unknown) date) shock now unknown) resolved but persistently febrile (unknown) (no (unknown) (unknown) 02/10/22 05:55 (units (unknown) date) unknown) (unknown) (no (unknown) (unknown) 02/10/22 (units (unkno wn) date) 02/10/22 02/10/22 unknown) (unknown) (no (unknown) (unknown) 02/10/22 (units (unkno wn) date) unknown) (unknown) (no (unknown) (unknown) 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 Schizophrenia (units (unknown) date) unknown) (unknown) (no (unknown) (unknown) Abdomen: Soft (units ( unknown) date) and nontender, no unknown) HSM (unknown) (no (unknown) (unknown) Age/Sex: 31 / F (units (unknown) date) unknown) (unknown) (no (unknown) (unknown) Assessment + (units (u nknown) date) Plan narrative: unknown) (unknown) (no (unknown) (unknown) Assessment + (units (u nknown) date) Plan unknown) (unknown) (no (unknown) (unknown) BUN 7 (units (unkno wn) date) unknown) (unknown) (no (unknown) (unknown) BUN/Creatinine (units (unknown) date) Ratio 11.1 unknown) (unknown) (no (unknown) (unknown) Baso # (Auto) 0 (units (unknown) date) unknown) (unknown) (no (unknown) (unknown) Baso % (Auto) (units ( unknown) date) 0.4 unknown) (unknown) (no (unknown) (unknown) Blood Pressure (units (unknown) date) 84/55 L 91/63 unknown) (unknown) (no (unknown) (unknown) Calcium 7.2 L (units ( unknown) date) unknown) (unknown) (no (unknown) (unknown) Carbon Dioxide (units (unknown) date) 19 L unknown) (unknown) (no (unknown) (unknown) Chloride 110 H (units (unknown) date) unknown) (unknown) (no (unknown) (unknown) Code status: (units (u nknown) date) Full code unknown) (unknown) (no (unknown) (unknown) Creatinine 0.63 (units (unknown) date) unknown) (unknown) (no (unknown) (unknown) Critical Care (units ( unknown) date) time: unknown) (unknown) (no (unknown) (unknown) : 1990 (units (unknown) date) Acct:[id number] unknown) (unknown) (no (unknown) (unknown) DVT prophylaxis: (units (unknown) date) Enoxaparin unknown) (unknown) (no (unknown) (unknown) Date of Service: (units (unknown) date) 02/07/22 unknown) (unknown) (no (unknown) (unknown) Deep Vein (units (unkn own) date) Thrombosis/Pulmon unknown) lucia Embolism Present on Admission: No (unknown) (no (unknown) (unknown) Dispo: Pending (units (unknown) date) improvement of unknown) fevers. (unknown) (no (unknown) (unknown) Eos # (Auto) 0 (units (unknown) date) unknown) (unknown) (no (unknown) (unknown) Eos % (Auto) 0.8 (units (unknown) date) L unknown) (unknown) (no (unknown) (unknown) Estimated GFR > (units (unknown) date) 60 unknown) (unknown) (no (unknown) (unknown) Exam Narrative: (units (unknown) date) unknown) (unknown) (no (unknown) (unknown) Exam (units (unkno wn) date) unknown) (unknown) (no (unknown) (unknown) Extremities: No (units (unknown) date) skin lesions on unknown) arms or legs, no edema or rash (unknown) (no (unknown) (unknown) General: (units (unkno wn) date) Presently patient unknown) is alert and intermittently agitated (unknown) (no (unknown) (unknown) Glucose 83 (units (unk nown) date) unknown) (unknown) (no (unknown) (unknown) HEENT: There is (units (unknown) date) extensive areas unknown) of erythema and scabbing on the top and back of (unknown) (no (unknown) (unknown) Hct 28.3 L (units (unk nown) date) unknown) (unknown) (no (unknown) (unknown) Heart: Regular (units (unknown) date) rate and rhythm, unknown) no murmur (unknown) (no (unknown) (unknown) Hgb 9.3 L (units (unkn own) date) unknown) (unknown) (no (unknown) (unknown) 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) (unknown) (no (unknown) (unknown) 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 (unknown) (no (unknown) (unknown) I spent a total (units (unknown) date) of [] minutes of unknown) critical care time on this patient's care (unknown) (no (unknown) (unknown) [facility] (units (unknown) date) [address] unknown) [place] [address] (unknown) (no (unknown) (unknown) Laboratory (units (unk nown) date) Results - last unknown) hr (unknown) (no (unknown) (unknown) Labs (units (unkno wn) date) unknown) (unknown) (no (unknown) (unknown) Labs: (units (unkno wn) date) unknown) (unknown) (no (unknown) (unknown) Lungs: Clear to (units (unknown) date) auscultation unknown) (unknown) (no (unknown) (unknown) Lymph # (Auto) (units (unknown) date) 900 L unknown) (unknown) (no (unknown) (unknown) Lymph % (Auto) (units (unknown) date) 23.5 L unknown) (unknown) (no (unknown) (unknown) [id number] (units (unk nown) date) unknown) (unknown) (no (unknown) (unknown) MCH 28.5 (units (unkno wn) date) unknown) (unknown) (no (unknown) (unknown) MCHC 32.9 (units (unkn own) date) unknown) (unknown) (no (unknown) (unknown) MCV 86.7 (units (unkno wn) date) unknown) (unknown) (no (unknown) (unknown) Medical History (units (unknown) date) (Reviewed unknown) 02/08/22 @ 16:42 by Asa Khan MD) (unknown) (no (unknown) (unknown) Butts # (Auto) (units ( unknown) date) 200 unknown) (unknown) (no (unknown) (unknown) Butts % (Auto) (units ( unknown) date) 6.0 unknown) (unknown) (no (unknown) (unknown) Narrative (units (unkn own) date) unknown) (unknown) (no (unknown) (unknown) Neck: Trachea (units ( unknown) date) midline, supple, unknown) no thyromegaly (unknown) (no (unknown) (unknown) Neurological: (units ( unknown) date) Nonverbal, no unknown) localizing signs (unknown) (no (unknown) (unknown) Neut # (Auto) (units ( unknown) date) 2600 unknown) (unknown) (no (unknown) (unknown) Neut % (Auto) (units ( unknown) date) 69.3 unknown) (unknown) (no (unknown) (unknown) Objective (units (unkn own) date) unknown) (unknown) (no (unknown) (unknown) Oxygen Delivery (units (unknown) date) Method Room Air unknown) (unknown) (no (unknown) (unknown) Oxygen Flow Rate (units (unknown) date) 0 unknown) (unknown) (no (unknown) (unknown) PFSH (units (unkno wn) date) unknown) (unknown) (no (unknown) (unknown) Patient: (units (unkno wn) date) Vanessa Mills unknown) B MR#: (unknown) (no (unknown) (unknown) Plt Count 102 L (units (unknown) date) unknown) (unknown) (no (unknown) (unknown) Potassium 3.1 L (units (unknown) date) unknown) (unknown) (no (unknown) (unknown) Procalcitonin (units ( unknown) date) 0.23 unknown) (unknown) (no (unknown) (unknown) Progress Note (units ( unknown) date) unknown) (unknown) (no (unknown) (unknown) Provider: (units (unkn own) date) Yaakov Costa unknown) D.ODemarco (unknown) (no (unknown) (unknown) Pulse Oximetry (units (unknown) date) 100 94 unknown) (unknown) (no (unknown) (unknown) Pulse Rate 72 93 (units (unknown) date) H unknown) (unknown) (no (unknown) (unknown) Pupils equal and (units (unknown) date) reactive. unknown) Conjunctiva clear. No drainage from eyes. (unknown) (no (unknown) (unknown) Quality (units (unkno wn) date) unknown) (unknown) (no (unknown) (unknown) RBC 3.27 L (units (unk nown) date) unknown) (unknown) (no (unknown) (unknown) RDW 15.1 H (units (unk nown) date) unknown) (unknown) (no (unknown) (unknown) Respiratory Rate (units (unknown) date) 14 19 unknown) (unknown) (no (unknown) (unknown) Result Diagrams: (units (unknown) date) unknown) (unknown) (no (unknown) (unknown) Schizophrenia (units ( unknown) date) unknown) (unknown) (no (unknown) (unknown) Signed By: (units (unk nown) date) unknown) (unknown) (no (unknown) (unknown) Smoking Status: (units (unknown) date) Never smoker unknown) (unknown) (no (unknown) (unknown) Social History (units (unknown) date) unknown) (unknown) (no (unknown) (unknown) Sodium 138 (units (unk nown) date) unknown) (unknown) (no (unknown) (unknown) Surrogate (units (unkn own) date) decisionmaker: unknown) Mom (unknown) (no (unknown) (unknown) Temperature 96.6 (units (unknown) date) F L 98.6 F unknown) (unknown) (no (unknown) (unknown) Time Spent With (units (unknown) date) Patient unknown) (unknown) (no (unknown) (unknown) VTE (units (unkno wn) date) unknown) (unknown) (no (unknown) (unknown) Vital Signs (units (un known) date) unknown) (unknown) (no (unknown) (unknown) WBC 3.8 L (units (unkn own) date) unknown) (unknown) (no (unknown) (unknown) [Embedded Image (units (unknown) date) Not Available] unknown) (unknown) (no (unknown) (unknown) all infectious (units (unknown) date) workup negative, unknown) patient has lupus history but doubt this is (unknown) (no (unknown) (unknown) bedtime and (units (un known) date) increase unknown) fluoxetine from 10 mg to 20 mg daily (unknown) (no (unknown) (unknown) contributing (units (u nknown) date) unknown) (unknown) (no (unknown) (unknown) erythema or (units (un known) date) tenderness over unknown) the mastoids. No periorbital or facial edema. (unknown) (no (unknown) (unknown) household (units (unkn own) date) members: family unknown) (unknown) (no (unknown) (unknown) infiltrate (units (unk nown) date) unknown) (unknown) (no (unknown) (unknown) intrabdominal. (units (unknown) date) Or DVT as pt has unknown) history of this. (unknown) (no (unknown) (unknown) patient not (units (un known) date) currently on unknown) anticoagulant (unknown) (no (unknown) (unknown) procalcitonin is (units (unknown) date) elevated at 1.08, unknown) now down to 0.87 and will continue to trend (unknown) (no (unknown) (unknown) scalp, paranasal (units (unknown) date) areas, nape of unknown) neck with xeroform guaze on back of scalp. Also (unknown) (no (unknown) (unknown) such as drug (units (u nknown) date) overdose, unknown) serotonin syndrome or acute PE (see below) (unknown) (no (unknown) (unknown) tenderness or (units ( unknown) date) erythema to unknown) suggest mastoiditis, no meningeal signs (unknown) (no (unknown) (unknown) the ED after (units (u nknown) date) standard fluid unknown) resuscitation (unknown) (no (unknown) (unknown) there is some (units ( unknown) date) crusting and unknown) drainage from bilateral external ear areas. No (unknown) (no (unknown) (unknown) today; this time (units (unknown) date) is exclusive of unknown) procedural time. (unknown) (no (unknown) (unknown) will need to (units (u nknown) date) consider unknown) potential other sources of infection such as sinusitis or (unknown) (no (unknown) (unknown) x-ray (units (unkno wn) date) unknown) Result panel 505 (unknown) (no date) (unknown) (unknown) (no value) (units (un known) unknown) (unknown) (no date) (unknown) (unknown) NO GROWTH (units (unk nown) AFTER 24 unknown) HOURS (unknown) (no date) (unknown) (unknown) NO GROWTH (units (unk nown) AFTER 24 unknown) HOURS Result panel 506 (unknown) (no (unknown) (unknown) (no value) (units (unk nown) date) unknown) (unknown) (no (unknown) (unknown) (past 8 hours): (units (unknown) date) unknown) (unknown) (no (unknown) (unknown) -CT sinus and CT (units (unknown) date) abd pelvis unknown) ordered and unrevealing (unknown) (no (unknown) (unknown) -CTA chest on (units ( unknown) date) 02/07 negative unknown) for PE (unknown) (no (unknown) (unknown) -IV azithromycin (units (unknown) date) added for unknown) atypical coverage due to interstitial infiltrates on (unknown) (no (unknown) (unknown) -LE doppler as (units (unknown) date) above unknown) (unknown) (no (unknown) (unknown) -LE doppler (units (un known) date) bilateral to rule unknown) out PE negative (unknown) (no (unknown) (unknown) -able to wean (units ( unknown) date) off levophed on unknown) 02/08 (unknown) (no (unknown) (unknown) -ativan IV PRN (units (unknown) date) for agitation unknown) (unknown) (no (unknown) (unknown) -blood cultures (units (unknown) date) x2 no growth to unknown) date (unknown) (no (unknown) (unknown) -chest x-ray (units (u nknown) date) personally unknown) reviewed and shows nonspecific diffuse interstitial (unknown) (no (unknown) (unknown) -continue on (units (u nknown) date) vancomycin and unknown) Zosyn started in the ED (unknown) (no (unknown) (unknown) -continue (units (unkn own) date) restraints due to unknown) pulling at lines (unknown) (no (unknown) (unknown) -differential (units ( unknown) date) diagnosis unknown) includes non infectious source of fever and hypotension (unknown) (no (unknown) (unknown) -dimer 2351 (units (un known) date) unknown) (unknown) (no (unknown) (unknown) -event was (units (unk nown) date) reportedly in unknown) 2018, unknown whether IVC filter was ever removed, (unknown) (no (unknown) (unknown) -give dose 150mg (units (unknown) date) fluconazole unknown) (unknown) (no (unknown) (unknown) -nasal MRSA swab (units (unknown) date) negative, will unknown) consider stopping vanco (unknown) (no (unknown) (unknown) -normal (units (unkno wn) date) urinalysis, unknown) respiratory panel PCR, normal WBC without left shift but (unknown) (no (unknown) (unknown) -now afebrile (units ( unknown) date) for 24 hours unknown) (unknown) (no (unknown) (unknown) -patient got (units (u nknown) date) Zyprexa in the ED unknown) (unknown) (no (unknown) (unknown) -patient (units (unkno wn) date) presents febrile, unknown) tachycardic and tachypneic and became hypotensive in (unknown) (no (unknown) (unknown) -per discussion (units (unknown) date) with Psychiatry, unknown) increased olanzapine from 15 mg to 20 mg at (unknown) (no (unknown) (unknown) -per family they (units (unknown) date) don't want her to unknown) take prozac because she gets 'too sleepy' on (unknown) (no (unknown) (unknown) -possible source (units (unknown) date) is bacteremia due unknown) to skin lesions on scalp and neck, no mastoid (unknown) (no (unknown) (unknown) -right IJ (units (unkn own) date) central line unknown) placed in the ED, can remove (unknown) (no (unknown) (unknown) -urine tox (units (unk nown) date) screen negative unknown) (unknown) (no (unknown) (unknown) -wound culture (units (unknown) date) obtained from unknown) right ear drainage, growing floyd (unknown) (no (unknown) (unknown) 04:00 02/10/22 (units (unknown) date) unknown) (unknown) (no (unknown) (unknown) 05:55 05:55 (units (un known) date) 05:55 unknown) (unknown) (no (unknown) (unknown) 08:00 (units (unkno wn) date) unknown) (unknown) (no (unknown) (unknown) 1. Septic shock, (units (unknown) date) shock now unknown) resolved but persistently febrile (unknown) (no (unknown) (unknown) 02/10/22 05:55 (units (unknown) date) unknown) (unknown) (no (unknown) (unknown) 02/10/22 (units (unkno wn) date) 02/10/22 02/10/22 unknown) (unknown) (no (unknown) (unknown) 02/10/22 1845 (units ( unknown) date) unknown) (unknown) (no (unknown) (unknown) 02/10/22 (units (unkno wn) date) unknown) (unknown) (no (unknown) (unknown) 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 Schizophrenia (units (unknown) date) unknown) (unknown) (no (unknown) (unknown) Abdomen: Soft (units ( unknown) date) and nontender, no unknown) HSM (unknown) (no (unknown) (unknown) Afebrile now for (units (unknown) date) 24 hours. Parents unknown) eager to take her home tomorrow. Explained we (unknown) (no (unknown) (unknown) Age/Sex: 31 / F (units (unknown) date) unknown) (unknown) (no (unknown) (unknown) Assessment + (units (u nknown) date) Plan narrative: unknown) (unknown) (no (unknown) (unknown) Assessment + (units (u nknown) date) Plan unknown) (unknown) (no (unknown) (unknown) BUN 7 (units (unkno wn) date) unknown) (unknown) (no (unknown) (unknown) BUN/Creatinine (units (unknown) date) Ratio 11.1 unknown) (unknown) (no (unknown) (unknown) Baso # (Auto) 0 (units (unknown) date) unknown) (unknown) (no (unknown) (unknown) Baso % (Auto) (units ( unknown) date) 0.4 unknown) (unknown) (no (unknown) (unknown) Blood Pressure (units (unknown) date) 84/55 L 91/63 unknown) (unknown) (no (unknown) (unknown) Calcium 7.2 L (units ( unknown) date) unknown) (unknown) (no (unknown) (unknown) Carbon Dioxide (units (unknown) date) 19 L unknown) (unknown) (no (unknown) (unknown) Chloride 110 H (units (unknown) date) unknown) (unknown) (no (unknown) (unknown) Code status: (units (u nknown) date) Full code unknown) (unknown) (no (unknown) (unknown) Creatinine 0.63 (units (unknown) date) unknown) (unknown) (no (unknown) (unknown) Critical Care (units ( unknown) date) time: unknown) (unknown) (no (unknown) (unknown) : 1990 (units (unknown) date) Acct:[id number] unknown) (unknown) (no (unknown) (unknown) DVT prophylaxis: (units (unknown) date) Enoxaparin unknown) (unknown) (no (unknown) (unknown) Date Patient (units (u nknown) date) Seen: 02/10/22 unknown) (unknown) (no (unknown) (unknown) Date of Service: (units (unknown) date) 02/07/22 unknown) (unknown) (no (unknown) (unknown) Deep Vein (units (unkn own) date) Thrombosis/Pulmon unknown) lucia Embolism Present on Admission: No (unknown) (no (unknown) (unknown) Dispo: Home with (units (unknown) date) HH for dressing unknown) changes on 02/11. (unknown) (no (unknown) (unknown) Eos # (Auto) 0 (units (unknown) date) unknown) (unknown) (no (unknown) (unknown) Eos % (Auto) 0.8 (units (unknown) date) L unknown) (unknown) (no (unknown) (unknown) Estimated GFR > (units (unknown) date) 60 unknown) (unknown) (no (unknown) (unknown) Exam Narrative: (units (unknown) date) unknown) (unknown) (no (unknown) (unknown) Exam (units (unkno wn) date) unknown) (unknown) (no (unknown) (unknown) Extremities: No (units (unknown) date) skin lesions on unknown) arms or legs, no edema or rash (unknown) (no (unknown) (unknown) General: (units (unkno wn) date) Presently patient unknown) is alert and intermittently agitated, screams out (unknown) (no (unknown) (unknown) Glucose 83 (units (unk nown) date) unknown) (unknown) (no (unknown) (unknown) HEENT: There is (units (unknown) date) extensive areas unknown) of erythema and scabbing on the top and back of (unknown) (no (unknown) (unknown) Hct 28.3 L (units (unk nown) date) unknown) (unknown) (no (unknown) (unknown) Heart: Regular (units (unknown) date) rate and rhythm, unknown) no murmur (unknown) (no (unknown) (unknown) Hgb 9.3 L (units (unkn own) date) unknown) (unknown) (no (unknown) (unknown) 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) (unknown) (no (unknown) (unknown) 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 (unknown) (no (unknown) (unknown) I spent a total (units (unknown) date) of [] minutes of unknown) critical care time on this patient's care (unknown) (no (unknown) (unknown) Interval (units (unkno wn) date) history: unknown) (unknown) (no (unknown) (unknown) [facility] (units (unknown) date) [address] unknown) [place] [address] (unknown) (no (unknown) (unknown) Laboratory (units (unk nown) date) Results - last 24 unknown) hr (unknown) (no (unknown) (unknown) Labs (units (unkno wn) date) unknown) (unknown) (no (unknown) (unknown) Labs: (units (unkno wn) date) unknown) (unknown) (no (unknown) (unknown) Lungs: Clear to (units (unknown) date) auscultation unknown) (unknown) (no (unknown) (unknown) Lymph # (Auto) (units (unknown) date) 900 L unknown) (unknown) (no (unknown) (unknown) Lymph % (Auto) (units (unknown) date) 23.5 L unknown) (unknown) (no (unknown) (unknown) [id number] (units (unk nown) date) unknown) (unknown) (no (unknown) (unknown) MCH 28.5 (units (unkno wn) date) unknown) (unknown) (no (unknown) (unknown) MCHC 32.9 (units (unkn own) date) unknown) (unknown) (no (unknown) (unknown) MCV 86.7 (units (unkno wn) date) unknown) (unknown) (no (unknown) (unknown) Medical History (units (unknown) date) (Reviewed unknown) 02/08/22 @ 16:42 by Asa Khan MD) (unknown) (no (unknown) (unknown) Butts # (Auto) (units ( unknown) date) 200 unknown) (unknown) (no (unknown) (unknown) Butts % (Auto) (units ( unknown) date) 6.0 unknown) (unknown) (no (unknown) (unknown) Narrative (units (unkn own) date) unknown) (unknown) (no (unknown) (unknown) Neck: Trachea (units ( unknown) date) midline, supple, unknown) no thyromegaly (unknown) (no (unknown) (unknown) Neurological: (units ( unknown) date) Nonverbal, no unknown) localizing signs (unknown) (no (unknown) (unknown) Neut # (Auto) (units ( unknown) date) 2600 unknown) (unknown) (no (unknown) (unknown) Neut % (Auto) (units ( unknown) date) 69.3 unknown) (unknown) (no (unknown) (unknown) Objective (units (unkn own) date) unknown) (unknown) (no (unknown) (unknown) Oxygen Delivery (units (unknown) date) Method Room Air unknown) (unknown) (no (unknown) (unknown) Oxygen Flow Rate (units (unknown) date) 0 unknown) (unknown) (no (unknown) (unknown) PFSH (units (unkno wn) date) unknown) (unknown) (no (unknown) (unknown) Patient: (units (unkno wn) date) Vanessa Mills unknown) B MR#: (unknown) (no (unknown) (unknown) Plt Count 102 L (units (unknown) date) unknown) (unknown) (no (unknown) (unknown) Potassium 3.1 L (units (unknown) date) unknown) (unknown) (no (unknown) (unknown) Procalcitonin (units ( unknown) date) 0.23 unknown) (unknown) (no (unknown) (unknown) Progress Note (units ( unknown) date) unknown) (unknown) (no (unknown) (unknown) Provider: (units (unkn own) date) Yaakov Costa unknown) D.O. (unknown) (no (unknown) (unknown) Pulse Oximetry (units (unknown) date) 100 94 unknown) (unknown) (no (unknown) (unknown) Pulse Rate 72 93 (units (unknown) date) H unknown) (unknown) (no (unknown) (unknown) Pupils equal and (units (unknown) date) reactive. unknown) Conjunctiva clear. No drainage from eyes. (unknown) (no (unknown) (unknown) Quality (units (unkno wn) date) unknown) (unknown) (no (unknown) (unknown) RBC 3.27 L (units (unk nown) date) unknown) (unknown) (no (unknown) (unknown) RDW 15.1 H (units (unk nown) date) unknown) (unknown) (no (unknown) (unknown) Respiratory Rate (units (unknown) date) 14 19 unknown) (unknown) (no (unknown) (unknown) Result Diagrams: (units (unknown) date) unknown) (unknown) (no (unknown) (unknown) Schizophrenia (units ( unknown) date) unknown) (unknown) (no (unknown) (unknown) Signed (units (unkno wn) date) By:<Electronicall unknown) y signed by Yaakov Costa DDemarcoODemarco> (unknown) (no (unknown) (unknown) Smoking Status: (units (unknown) date) Never smoker unknown) (unknown) (no (unknown) (unknown) Social History (units (unknown) date) unknown) (unknown) (no (unknown) (unknown) Sodium 138 (units (unk nown) date) unknown) (unknown) (no (unknown) (unknown) Subjective (units (unk nown) date) unknown) (unknown) (no (unknown) (unknown) Surrogate (units (unkn own) date) decisionmaker: unknown) Mom (unknown) (no (unknown) (unknown) Temperature 96.6 (units (unknown) date) F L 98.6 F unknown) (unknown) (no (unknown) (unknown) Time Spent With (units (unknown) date) Patient unknown) (unknown) (no (unknown) (unknown) VTE (units (unkno wn) date) unknown) (unknown) (no (unknown) (unknown) Vital Signs (units (un known) date) unknown) (unknown) (no (unknown) (unknown) WBC 3.8 L (units (unkn own) date) unknown) (unknown) (no (unknown) (unknown) [Embedded Image (units (unknown) date) Not Available] unknown) (unknown) (no (unknown) (unknown) bedtime (units (unkno wn) date) unknown) (unknown) (no (unknown) (unknown) erythema or (units (un known) date) tenderness over unknown) the mastoids. No periorbital or facial edema. (unknown) (no (unknown) (unknown) household (units (unkn own) date) members: family unknown) (unknown) (no (unknown) (unknown) infiltrate (units (unk nown) date) unknown) (unknown) (no (unknown) (unknown) it (units (unkno wn) date) unknown) (unknown) (no (unknown) (unknown) patient not (units (un known) date) currently on unknown) anticoagulant (unknown) (no (unknown) (unknown) procalcitonin is (units (unknown) date) elevated at 1.08, unknown) now down to 0.87 and will continue to trend (unknown) (no (unknown) (unknown) scalp, paranasal (units (unknown) date) areas, nape of unknown) neck with xeroform guaze on back of scalp. Also (unknown) (no (unknown) (unknown) such as drug (units (u nknown) date) overdose, unknown) serotonin syndrome or acute PE (see below) (unknown) (no (unknown) (unknown) tenderness or (units ( unknown) date) erythema to unknown) suggest mastoiditis, no meningeal signs (unknown) (no (unknown) (unknown) the ED after (units (u nknown) date) standard fluid unknown) resuscitation (unknown) (no (unknown) (unknown) there is some (units ( unknown) date) crusting and unknown) drainage from bilateral external ear areas. No (unknown) (no (unknown) (unknown) today; this time (units (unknown) date) is exclusive of unknown) procedural time. (unknown) (no (unknown) (unknown) will setup home (units (unknown) date) health for them. unknown) (unknown) (no (unknown) (unknown) x-ray (units (unkno wn) date) unknown) Result panel 507 (unknown) (no date) (unknown) (unknown) (no value) (units (un known) unknown) (unknown) (no date) (unknown) (unknown) NO GROWTH (units (unk nown) AFTER 24 unknown) HOURS (unknown) (no date) (unknown) (unknown) NO GROWTH (units (unk nown) AFTER 24 unknown) HOURS Result panel 508 (unknown) (no date) (unknown) (unknown) 0.13 ng/ml (unkn own) (unknown) (no date) (unknown) (unknown) 0.13 ng/ml (unkn own) Result panel 509 (unknown) (no date) (unknown) (unknown) (no value) (units (un known) unknown) (unknown) (no date) (unknown) (unknown) NO GROWTH (units (unk nown) AFTER 4 DAYS unknown) Result panel 510 (unknown) (no date) (unknown) (unknown) (no value) (units (un known) unknown) (unknown) (no date) (unknown) (unknown) NO GROWTH (units (unk nown) AFTER 4 DAYS unknown) Result panel 511 (unknown) (no date) (unknown) (unknown) NEGATIVE (units (unkn own) unknown) (unknown) (no date) (unknown) (unknown) NEGATIVE (units (unkn own) unknown) Result panel 512 (unknown) (no date) (unknown) (unknown) (no value) (units (un known) unknown) (unknown) (no date) (unknown) (unknown) NO GROWTH (units (unk nown) AFTER 48 unknown) HOURS (unknown) (no date) (unknown) (unknown) NO GROWTH (units (unk nown) AFTER 48 unknown) HOURS Result panel 513 (unknown) (no date) (unknown) (unknown) (no value) (units (un known) unknown) (unknown) (no date) (unknown) (unknown) NO GROWTH (units (unk nown) AFTER 48 unknown) HOURS (unknown) (no date) (unknown) (unknown) NO GROWTH (units (unk nown) AFTER 48 unknown) HOURS Result panel 514 (unknown) (no (unknown) (unknown) (no value) (units (unk nown) date) unknown) (unknown) (no (unknown) (unknown) (past 8 hours): (units (unknown) date) unknown) (unknown) (no (unknown) (unknown) 07:45 07:45 (units (un known) date) unknown) (unknown) (no (unknown) (unknown) 1 applic topical (units (unknown) date) BID Qty: 45 0RF unknown) (unknown) (no (unknown) (unknown) 1 tab PO Q12H Qty: (units (unknown) date) 10 0RF unknown) (unknown) (no (unknown) (unknown) 02/07/22 09:45 (units (unknown) date) unknown) (unknown) (no (unknown) (unknown) 02/07/22 11:22 (units (unknown) date) unknown) (unknown) (no (unknown) (unknown) 02/07/22 11:24 (units (unknown) date) unknown) (unknown) (no (unknown) (unknown) 02/07/22 11:54 (units (unknown) date) unknown) (unknown) (no (unknown) (unknown) 02/07/22 18:56 (units (unknown) date) unknown) (unknown) (no (unknown) (unknown) 02/07/22 20:10 (units (unknown) date) unknown) (unknown) (no (unknown) (unknown) 02/08/22 12:40 (units (unknown) date) unknown) (unknown) (no (unknown) (unknown) 02/10/22 05:55 (units (unknown) date) unknown) (unknown) (no (unknown) (unknown) 02/11/22 02/11/22 (units (unknown) date) unknown) (unknown) (no (unknown) (unknown) 02/11/22 12:38 (units (unknown) date) unknown) (unknown) (no (unknown) (unknown) 15 mg PO BEDTIME (units (unknown) date) Qty: 90 1RF unknown) (unknown) (no (unknown) (unknown) 20 mg PO BEDTIME (units (unknown) date) Qty: 60 0RF unknown) (unknown) (no (unknown) (unknown) 31-year-old female (units (unknown) date) with history of unknown) poorly controlled schizophrenia presented to (unknown) (no (unknown) (unknown) Activity: As (units (u nknown) date) tolerated unknown) (unknown) (no (unknown) (unknown) Age/Sex: 31 / F (units (unknown) date) unknown) (unknown) (no (unknown) (unknown) Chief complaint: (units (unknown) date) she has wounds on unknown) head, not eating, mucas in nose (unknown) (no (unknown) (unknown) Comment: psych (units (unknown) date) placement unknown) (unknown) (no (unknown) (unknown) Comment: scalp and (units (unknown) date) face lesions from unknown) picking (unknown) (no (unknown) (unknown) Comment: (units (unkno wn) date) unknown) (unknown) (no (unknown) (unknown) Consult to (units (unk nown) date) Dietitian, Adult unknown) Routine (unknown) (no (unknown) (unknown) Consult to (units (unk nown) date) Discharge Planning unknown) Routine (unknown) (no (unknown) (unknown) Consult to Home (units (unknown) date) Health Routine unknown) (unknown) (no (unknown) (unknown) Consult to FACE PAINTER - (units (unknown) date) Community Engagement Manager unknown) Stat (unknown) (no (unknown) (unknown) Consult to (units (unk nown) date) Tele-anesthesia assistant unknown) Routine (unknown) (no (unknown) (unknown) Consult to Wound (units (unknown) date) Care Routine unknown) (unknown) (no (unknown) (unknown) Consult to Wound (units (unknown) date) Care Stat unknown) (unknown) (no (unknown) (unknown) Consulting (units (unk nown) date) Provider: Intercept unknown) Tele-intensivists (unknown) (no (unknown) (unknown) Consulting (units (unk nown) date) Provider: unknown) [facility] (unknown) (no (unknown) (unknown) Consults: (units (unkn own) date) unknown) (unknown) (no (unknown) (unknown) : 1990 (units (unknown) date) Acct:[id number] unknown) (unknown) (no (unknown) (unknown) Date of Service: (units (unknown) date) 02/07/22 unknown) (unknown) (no (unknown) (unknown) Date of admission: (units (unknown) date) unknown) (unknown) (no (unknown) (unknown) Deep Vein (units (unkn own) date) Thrombosis/Pulmonar unknown) y Embolism Present on Admission: No (unknown) (no (unknown) (unknown) Diet/Activity/Clara (units (unknown) date) tments unknown) (unknown) (no (unknown) (unknown) Diet: Diet as (units ( unknown) date) Tolerated unknown) (unknown) (no (unknown) (unknown) Discharge Data (units (unknown) date) unknown) (unknown) (no (unknown) (unknown) Discharge Date: (units (unknown) date) 02/11/22 unknown) (unknown) (no (unknown) (unknown) Discharge (units (unkn own) date) Diagnosis: unknown) (unknown) (no (unknown) (unknown) Discharge Plan (units (unknown) date) unknown) (unknown) (no (unknown) (unknown) Discharge (units (unkn own) date) Providers unknown) (unknown) (no (unknown) (unknown) Discharge Summary (units (unknown) date) unknown) (unknown) (no (unknown) (unknown) Discharge orders + (units (unknown) date) Medications unknown) (unknown) (no (unknown) (unknown) Discharge (units (unkn own) date) provider: unknown) (unknown) (no (unknown) (unknown) Discontinued (units (u nknown) date) unknown) (unknown) (no (unknown) (unknown) Doctor (units (unkno wn) date) MD Royer unknown) (unknown) (no (unknown) (unknown) ED due to (units (unkn own) date) development of unknown) fever last night.? Patient is reportedly nonverbal at (unknown) (no (unknown) (unknown) Exam (units (unkno wn) date) unknown) (unknown) (no (unknown) (unknown) Follow (units (unkno wn) date) up/Referrals: unknown) (unknown) (no (unknown) (unknown) HIV 1+2 Ab/P24 Ag (units (unknown) date) 4thGn Negative unknown) (unknown) (no (unknown) (unknown) Clifton Reyez MD (units (unknown) date) [Physician] unknown) (unknown) (no (unknown) (unknown) Has provider been (units (unknown) date) notified: Yes unknown) (unknown) (no (unknown) (unknown) 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) (unknown) (no (unknown) (unknown) History of Present (units (unknown) date) Illness unknown) (unknown) (no (unknown) (unknown) History of (units (unk nown) date) pulmonary embolism unknown) (unknown) (no (unknown) (unknown) Home health for (units (unknown) date) wound care unknown) (unknown) (no (unknown) (unknown) Hospital Course (units (unknown) date) unknown) (unknown) (no (unknown) (unknown) Hospital Course: (units (unknown) date) unknown) (unknown) (no (unknown) (unknown) Intellectual (units (u nknown) date) deficits unknown) (unknown) (no (unknown) (unknown) Interstitial (units (u nknown) date) infiltrates on unknown) chest x-ray, status post azithromycin treatment (unknown) (no (unknown) (unknown) [facility] (units (unknown) date) [address] unknown) [place] [address] (unknown) (no (unknown) (unknown) Laboratory Results (units (unknown) date) - last 24 hr unknown) (unknown) (no (unknown) (unknown) Labs (units (unkno wn) date) unknown) (unknown) (no (unknown) (unknown) Labs: (units (unkno wn) date) unknown) (unknown) (no (unknown) (unknown) [id number] (units (unk nown) date) unknown) (unknown) (no (unknown) (unknown) Medical History (units (unknown) date) (Reviewed 02/08/22 unknown) @ 16:42 by Asa Khan MD) (unknown) (no (unknown) (unknown) Miscellaneous,Doct (units (unknown) date) or, [Primary unknown) Care Provider] (unknown) (no (unknown) (unknown) 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 (unknown) (no (unknown) (unknown) Narrative: (units (unk nown) date) unknown) (unknown) (no (unknown) (unknown) New (units (unkno wn) date) unknown) (unknown) (no (unknown) (unknown) OCD (units (unkno wn) date) unknown) (unknown) (no (unknown) (unknown) Objective (units (unkn own) date) unknown) (unknown) (no (unknown) (unknown) Oxygen Delivery (units (unknown) date) Method Room Air unknown) (unknown) (no (unknown) (unknown) Oxygen Flow Rate 0 (units (unknown) date) unknown) (unknown) (no (unknown) (unknown) PFSH (units (unkno wn) date) unknown) (unknown) (no (unknown) (unknown) Patient (units (unkno wn) date) Disposition: Home unknown) Health Service (unknown) (no (unknown) (unknown) Patient gradually (units (unknown) date) improved. Off of unknown) pressors. She was successfully weaned (unknown) (no (unknown) (unknown) Patient was (units (un known) date) admitted on unknown) February 07 after presenting to the emergency (unknown) (no (unknown) (unknown) Patient: (units (unkno wn) date) Vanessa Mills Lakshmi unknown) MR#: (unknown) (no (unknown) (unknown) Per history and (units (unknown) date) physical: unknown) (unknown) (no (unknown) (unknown) Please give family (units (unknown) date) Xeroform to use unknown) until home health assumes care next week (unknown) (no (unknown) (unknown) Possible otitis (units (unknown) date) externa, right ear, unknown) candidal in nature (unknown) (no (unknown) (unknown) Prescriptions: (units (unknown) date) unknown) (unknown) (no (unknown) (unknown) Primary Care (units (u nknown) date) Provider: unknown) Miscellaneous,Docto r (unknown) (no (unknown) (unknown) Primary care (units (u nknown) date) physician: unknown) (unknown) (no (unknown) (unknown) Prior DVT/PE with (units (unknown) date) IVC filter unknown) placement, negative workup for thromboembolism this (unknown) (no (unknown) (unknown) Procalcitonin 0.13 (units (unknown) date) unknown) (unknown) (no (unknown) (unknown) Provider Discharge (units (unknown) date) Comment: Follow-up unknown) with your psychiatrist locally or contact (unknown) (no (unknown) (unknown) Provider (units (unkno wn) date) unknown) (unknown) (no (unknown) (unknown) Provider: (units (unkn own) date) Felisha Soria MD unknown) (unknown) (no (unknown) (unknown) Quality (units (unkno wn) date) unknown) (unknown) (no (unknown) (unknown) Reason For Exam: (units (unknown) date) Home health RN upon unknown) discharge (unknown) (no (unknown) (unknown) Reason For Exam: (units (unknown) date) assessed at high unknown) risk, no eating much at home (unknown) (no (unknown) (unknown) Reason For Exam: (units (unknown) date) multiple skin unknown) wounds (unknown) (no (unknown) (unknown) Reason for (units (unk nown) date) consultation: unknown) Branch Service Specialist services (unknown) (no (unknown) (unknown) Result Diagrams: (units (unknown) date) unknown) (unknown) (no (unknown) (unknown) Schizophrenia (units ( unknown) date) unknown) (unknown) (no (unknown) (unknown) Schizophrenia, (units (unknown) date) chronic unknown) (unknown) (no (unknown) (unknown) Septic shock, now (units (unknown) date) resolved unknown) (unknown) (no (unknown) (unknown) Felisha Soria, (units (unknown) date) unknown) (unknown) (no (unknown) (unknown) Signed By: (units (unk nown) date) unknown) (unknown) (no (unknown) (unknown) [facility] (units ( unknown) date) [facility] for new unknown) provider. (unknown) (no (unknown) (unknown) Smoking Status: (units (unknown) date) Never smoker unknown) (unknown) (no (unknown) (unknown) Social History (units (unknown) date) unknown) (unknown) (no (unknown) (unknown) Summary (units (unkno wn) date) unknown) (unknown) (no (unknown) (unknown) Transfer to: Home (units (unknown) date) Health, Other unknown) (unknown) (no (unknown) (unknown) Trichotillomania (units (unknown) date) unknown) (unknown) (no (unknown) (unknown) VTE (units (unkno wn) date) unknown) (unknown) (no (unknown) (unknown) Vital Signs (units (un known) date) unknown) (unknown) (no (unknown) (unknown) You can continue (units (unknown) date) to use benadryl unknown) (over the counter) for itching, 25 mg every 4 (unknown) (no (unknown) (unknown) Zyprexa.? 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 She is unknown) no longer on blood thinne and unknown whether IVC (unknown) (no (unknown) (unknown) baseline secondary (units (unknown) date) to schizophrenia unknown) and history was obtained from mom via (unknown) (no (unknown) (unknown) complaining of (units (unknown) date) abdominal pain. unknown) (unknown) (no (unknown) (unknown) days ago.? On ED (units (unknown) date) evaluation, patient unknown) was tachypneic, tachycardic and febrile (unknown) (no (unknown) (unknown) department with (units (unknown) date) septic shock. unknown) Etiology was not entirely clear. She was placed (unknown) (no (unknown) (unknown) due to hypotension (units (unknown) date) from her shock. unknown) Wound care consult was obtained secondary to (unknown) (no (unknown) (unknown) face areas.? She (units (unknown) date) was seen at [facility] unknown) General and started on cephalexin about 10 (unknown) (no (unknown) (unknown) felt septic shock (units (unknown) date) was secondary to unknown) soft tissue infection, possible viral (unknown) (no (unknown) (unknown) filter was (units (unk nown) date) removed.? Family unknown) has not noticed patient having a cough, or (unknown) (no (unknown) (unknown) having (units (unkno wn) date) uncontrollable unknown) behavior in the ER but calm down nicely after given 20 mg (unknown) (no (unknown) (unknown) her significant (units (unknown) date) wounds from her unknown) skin picking. Wound care physician recommended (unknown) (no (unknown) (unknown) hours as needed (units (unknown) date) unknown) (unknown) (no (unknown) (unknown) household members: (units (unknown) date) family unknown) (unknown) (no (unknown) (unknown) map of 65.? She (units (unknown) date) had right IJ unknown) central line put in while in the ER.? EKG showed (unknown) (no (unknown) (unknown) milliliters/kilogr (units (unknown) date) am for sepsis unknown) protocol, and subsequently dropped her blood (unknown) (no (unknown) (unknown) mupirocin 2 % (units ( unknown) date) Ointment unknown) (unknown) (no (unknown) (unknown) mupirocin b.i.d. as (units (unknown) date) well as Xeroform unknown) gauze to the ulcer to the back of her neck. (unknown) (no (unknown) (unknown) olanzapine 15 mg (units (unknown) date) tablet unknown) (unknown) (no (unknown) (unknown) olanzapine (units (unk nown) date) [Zyprexa Zydis] 10 unknown) mg Tablet,Disintegrati ng (unknown) (no (unknown) (unknown) on broad-spectrum (units (unknown) date) antibiotics. Tele unknown) anesthesia assistant consult was obtained and it was (unknown) (no (unknown) (unknown) pneumonia. (units (unk nown) date) Respiratory unknown) cultures were negative. Patient did require pressors (unknown) (no (unknown) (unknown) pressure to (units (un known) date) 87/55.? She then unknown) got started on Levophed, currently on 3 mcg with (unknown) (no (unknown) (unknown) sinus rhythm with (units (unknown) date) PACs, normal unknown) intervals.? 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 (units (u nknown) date) Patient is reported unknown) to have frequent itching/picking on head and (unknown) (no (unknown) (unknown) with temp 101.8?.? (units (unknown) date) Initially unknown) normotensive, got fluid bolus 30 Result panel 515 (unknown) (no (unknown) (unknown) (no value) (units (unk nown) date) unknown) (unknown) (no (unknown) (unknown) (Parents report (units (unknown) date) this is her unknown) baseline, she does frequently scream out in [place], (unknown) (no (unknown) (unknown) (past 8 hours): (units (unknown) date) unknown) (unknown) (no (unknown) (unknown) 07:45 07:45 (units (un known) date) unknown) (unknown) (no (unknown) (unknown) 1 applic topical (units (unknown) date) BID Qty: 45 0RF unknown) (unknown) (no (unknown) (unknown) 1 tab PO Q12H Qty: (units (unknown) date) 10 0RF unknown) (unknown) (no (unknown) (unknown) 02/07/22 09:45 (units (unknown) date) unknown) (unknown) (no (unknown) (unknown) 02/07/22 11:22 (units (unknown) date) unknown) (unknown) (no (unknown) (unknown) 02/07/22 11:24 (units (unknown) date) unknown) (unknown) (no (unknown) (unknown) 02/07/22 11:54 (units (unknown) date) unknown) (unknown) (no (unknown) (unknown) 02/07/22 18:56 (units (unknown) date) unknown) (unknown) (no (unknown) (unknown) 02/07/22 20:10 (units (unknown) date) unknown) (unknown) (no (unknown) (unknown) 02/08/22 12:40 (units (unknown) date) unknown) (unknown) (no (unknown) (unknown) 02/10/22 05:55 (units (unknown) date) unknown) (unknown) (no (unknown) (unknown) 02/11/22 02/11/22 (units (unknown) date) unknown) (unknown) (no (unknown) (unknown) 02/11/22 12:38 (units (unknown) date) unknown) (unknown) (no (unknown) (unknown) 02/11/222022 (units ( unknown) date) unknown) (unknown) (no (unknown) (unknown) 15 mg PO BEDTIME (units (unknown) date) Qty: 90 1RF unknown) (unknown) (no (unknown) (unknown) 20 mg PO BEDTIME (units (unknown) date) Qty: 60 0RF unknown) (unknown) (no (unknown) (unknown) 31-year-old female (units (unknown) date) with history of unknown) poorly controlled schizophrenia presented to (unknown) (no (unknown) (unknown) ABD: Soft, NT/ND, (units (unknown) date) BT present in all 4 unknown) quadrants, no organomegaly or masses (unknown) (no (unknown) (unknown) Activity: As (units (u nknown) date) tolerated unknown) (unknown) (no (unknown) (unknown) Age/Sex: 31 / F (units (unknown) date) unknown) (unknown) (no (unknown) (unknown) CHEST: Respiratory (units (unknown) date) excursions unknown) symmetric, CTAB (unknown) (no (unknown) (unknown) CV: RRR, no M/R/G (units (unknown) date) unknown) (unknown) (no (unknown) (unknown) Chief complaint: (units (unknown) date) she has wounds on unknown) head, not eating, mucas in nose (unknown) (no (unknown) (unknown) Cognitive/behavior (units (unknown) date) al status at unknown) discharge: at baseline, confused and agitated (unknown) (no (unknown) (unknown) Comment: psych (units (unknown) date) placement unknown) (unknown) (no (unknown) (unknown) Comment: scalp and (units (unknown) date) face lesions from unknown) picking (unknown) (no (unknown) (unknown) Comment: (units (unkno wn) date) unknown) (unknown) (no (unknown) (unknown) Consult to (units (unk nown) date) Dietitian, Adult unknown) Routine (unknown) (no (unknown) (unknown) Consult to (units (unk nown) date) Discharge Planning unknown) Routine (unknown) (no (unknown) (unknown) Consult to Home (units (unknown) date) Health Routine unknown) (unknown) (no (unknown) (unknown) Consult to FACE PAINTER - (units (unknown) date) Community Engagement Manager unknown) Stat (unknown) (no (unknown) (unknown) Consult to (units (unk nown) date) Tele-anesthesia assistant unknown) Routine (unknown) (no (unknown) (unknown) Consult to Wound (units (unknown) date) Care Routine unknown) (unknown) (no (unknown) (unknown) Consult to Wound (units (unknown) date) Care Stat unknown) (unknown) (no (unknown) (unknown) Consulting (units (unk nown) date) Provider: Intercept unknown) Tele-intensivists (unknown) (no (unknown) (unknown) Consulting (units (unk nown) date) Provider: unknown) [facility] (unknown) (no (unknown) (unknown) Consults: (units (unkn own) date) unknown) (unknown) (no (unknown) (unknown) : 1990 (units (unknown) date) Acct:[id number] unknown) (unknown) (no (unknown) (unknown) Date of Service: (units (unknown) date) 02/07/22 unknown) (unknown) (no (unknown) (unknown) Date of admission: (units (unknown) date) unknown) (unknown) (no (unknown) (unknown) Deep Vein (units (unkn own) date) Thrombosis/Pulmonar unknown) y Embolism Present on Admission: No (unknown) (no (unknown) (unknown) Diet/Activity/Clara (units (unknown) date) tments unknown) (unknown) (no (unknown) (unknown) Diet: Diet as (units ( unknown) date) Tolerated unknown) (unknown) (no (unknown) (unknown) Discharge Data (units (unknown) date) unknown) (unknown) (no (unknown) (unknown) Discharge Date: (units (unknown) date) 02/11/22 unknown) (unknown) (no (unknown) (unknown) Discharge (units (unkn own) date) Diagnosis: unknown) (unknown) (no (unknown) (unknown) Discharge Plan (units (unknown) date) unknown) (unknown) (no (unknown) (unknown) Discharge (units (unkn own) date) Providers unknown) (unknown) (no (unknown) (unknown) Discharge Summary (units (unknown) date) unknown) (unknown) (no (unknown) (unknown) Discharge orders + (units (unknown) date) Medications unknown) (unknown) (no (unknown) (unknown) Discharge (units (unkn own) date) provider: unknown) (unknown) (no (unknown) (unknown) Discontinued (units (u nknown) date) unknown) (unknown) (no (unknown) (unknown) Doctor (units (unkno wn) date) Miscellaneous, MD unknown) (unknown) (no (unknown) (unknown) Due to concern for (units (unknown) date) possible tympanic unknown) membrane rupture, encouraged him to try to (unknown) (no (unknown) (unknown) ED due to (units (unkn own) date) development of unknown) fever last night.? Patient is reportedly nonverbal at (unknown) (no (unknown) (unknown) EXTR: warm, well (units (unknown) date) perfused, no C/C/E unknown) (unknown) (no (unknown) (unknown) Exam Narrative: (units (unknown) date) unknown) (unknown) (no (unknown) (unknown) Exam (units (unkno wn) date) unknown) (unknown) (no (unknown) (unknown) Family was hopeful (units (unknown) date) to be able to take unknown) her home. Parents are her full-time (unknown) (no (unknown) (unknown) Follow (units (unkno wn) date) up/Referrals: unknown) (unknown) (no (unknown) (unknown) Functional status (units (unknown) date) at discharge: unknown) independent ambulation (unknown) (no (unknown) (unknown) GEN: Alert and (units ( unknown) date) oriented x 1, unknown) frequently yells out but will stop with redirection (unknown) (no (unknown) (unknown) HEENT:NC, Face (units (unknown) date) symmetric, unknown) evaluation of the right ear reveals significant thick (unknown) (no (unknown) (unknown) HIV 1+2 Ab/P24 Ag (units (unknown) date) 4thGn Negative unknown) (unknown) (no (unknown) (unknown) Clifton Reyez MD (units (unknown) date) [Physician] unknown) (unknown) (no (unknown) (unknown) Has provider been (units (unknown) date) notified: Yes unknown) (unknown) (no (unknown) (unknown) 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) (unknown) (no (unknown) (unknown) History of Present (units (unknown) date) Illness unknown) (unknown) (no (unknown) (unknown) History of (units (unk nown) date) pulmonary embolism unknown) (unknown) (no (unknown) (unknown) Home health for (units (unknown) date) wound care unknown) (unknown) (no (unknown) (unknown) Hospital Course (units (unknown) date) unknown) (unknown) (no (unknown) (unknown) Hospital Course: (units (unknown) date) unknown) (unknown) (no (unknown) (unknown) Intellectual (units (u nknown) date) deficits unknown) (unknown) (no (unknown) (unknown) Interstitial (units (u nknown) date) infiltrates on unknown) chest x-ray, status post azithromycin treatment (unknown) (no (unknown) (unknown) [facility] (units (unknown) date) [address] unknown) [place] [address] (unknown) (no (unknown) (unknown) Laboratory Results (units (unknown) date) - last 24 hr unknown) (unknown) (no (unknown) (unknown) Labs (units (unkno wn) date) unknown) (unknown) (no (unknown) (unknown) Labs: (units (unkno wn) date) unknown) (unknown) (no (unknown) (unknown) [id number] (units (unk nown) date) unknown) (unknown) (no (unknown) (unknown) Medical History (units (unknown) date) (Reviewed 02/08/22 unknown) @ 16:42 by Asa Khan MD) (unknown) (no (unknown) (unknown) Miscellaneous,Doct (units (unknown) date) or, MD [Primary unknown) Care Provider] (unknown) (no (unknown) (unknown) 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 (unknown) (no (unknown) (unknown) NEURO: Alert and (units (unknown) date) oriented x 1 unknown) (unknown) (no (unknown) (unknown) Narrative (units (unkn own) date) unknown) (unknown) (no (unknown) (unknown) Narrative: (units (unk nown) date) unknown) (unknown) (no (unknown) (unknown) New (units (unkno wn) date) unknown) (unknown) (no (unknown) (unknown) OCD (units (unkno wn) date) unknown) (unknown) (no (unknown) (unknown) Objective (units (unkn own) date) unknown) (unknown) (no (unknown) (unknown) Oxygen Delivery (units (unknown) date) Method Room Air unknown) (unknown) (no (unknown) (unknown) Oxygen Flow Rate 0 (units (unknown) date) unknown) (unknown) (no (unknown) (unknown) PFSH (units (unkno wn) date) unknown) (unknown) (no (unknown) (unknown) Patient (units (unkno wn) date) Disposition: Home unknown) Health Service (unknown) (no (unknown) (unknown) Patient gradually (units (unknown) date) improved. She was unknown) successfully weaned off of pressors. (unknown) (no (unknown) (unknown) Patient was (units (un known) date) admitted on unknown) February 07 after presenting to the emergency (unknown) (no (unknown) (unknown) Patient was (units (un known) date) refusing food unknown) during her hospitalization. However, she typically (unknown) (no (unknown) (unknown) Patient: (units (unkno wn) date) Vanessa Mills unknown) MR#: (unknown) (no (unknown) (unknown) Per history and (units (unknown) date) physical: unknown) (unknown) (no (unknown) (unknown) Please give family (units (unknown) date) Xeroform to use unknown) until home health assumes care next week (unknown) (no (unknown) (unknown) Possible otitis (units (unknown) date) externa, right ear, unknown) candidal in nature (unknown) (no (unknown) (unknown) Possible right (units (unknown) date) tympanic membrane unknown) spontaneous rupture based on exam on the date (unknown) (no (unknown) (unknown) Prescriptions: (units (unknown) date) unknown) (unknown) (no (unknown) (unknown) Previously had (units (unknown) date) been established unknown) with Psychiatry here in [place]. 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) placement, negative workup for thromboembolism this (unknown) (no (unknown) (unknown) Procalcitonin 0.13 (units (unknown) date) unknown) (unknown) (no (unknown) (unknown) Provider Discharge (units (unknown) date) Comment: Follow-up unknown) with your psychiatrist locally or contact (unknown) (no (unknown) (unknown) Provider (units (unkno wn) date) unknown) (unknown) (no (unknown) (unknown) Provider: (units (unkn own) date) Felisha Soria MD unknown) (unknown) (no (unknown) (unknown) Quality (units (unkno wn) date) unknown) (unknown) (no (unknown) (unknown) Reason For Exam: (units (unknown) date) Home health RN upon unknown) discharge (unknown) (no (unknown) (unknown) Reason For Exam: (units (unknown) date) assessed at high unknown) risk, no eating much at home (unknown) (no (unknown) (unknown) Reason For Exam: (units (unknown) date) multiple skin unknown) wounds (unknown) (no (unknown) (unknown) Reason for (units (unk nown) date) consultation: unknown) Branch Service Specialist services (unknown) (no (unknown) (unknown) Result Diagrams: (units (unknown) date) unknown) (unknown) (no (unknown) (unknown) SKIN: warm and (units (unknown) date) dry, large unknown) ulceration to the crown of her scalp, multiple dry (unknown) (no (unknown) (unknown) Schizophrenia (units ( unknown) date) unknown) (unknown) (no (unknown) (unknown) Schizophrenia, (units (unknown) date) chronic unknown) (unknown) (no (unknown) (unknown) Septic shock, now (units (unknown) date) resolved unknown) (unknown) (no (unknown) (unknown) Felisha Soria (units (unknown) date) unknown) (unknown) (no (unknown) (unknown) Signed (units (unkno wn) date) By:<Electronically unknown) signed by Felisha Soria MD> (unknown) (no (unknown) (unknown) [facility] (units ( unknown) date) [facility] unknown) provider. (unknown) (no (unknown) (unknown) Smoking Status: (units (unknown) date) Never smoker unknown) (unknown) (no (unknown) (unknown) Social History (units (unknown) date) unknown) (unknown) (no (unknown) (unknown) Status at (units (unkn own) date) Discharge unknown) (unknown) (no (unknown) (unknown) Summary (units (unkno wn) date) unknown) (unknown) (no (unknown) (unknown) Time Spent with (units (unknown) date) Patient unknown) (unknown) (no (unknown) (unknown) Time spent: (units (un known) date) Greater than 30 unknown) minutes (45 minutes spent coordinating discharge) (unknown) (no (unknown) (unknown) Transfer to: Home (units (unknown) date) Health, Other unknown) (unknown) (no (unknown) (unknown) Trichotillomania (units (unknown) date) unknown) (unknown) (no (unknown) (unknown) VTE (units (unkno wn) date) unknown) (unknown) (no (unknown) (unknown) Vital Signs (units (un known) date) unknown) (unknown) (no (unknown) (unknown) You can continue (units (unknown) date) to use benadryl unknown) (over the counter) for itching, 25 mg every 4 (unknown) (no (unknown) (unknown) Zyprexa was (units (un known) date) increased from 15 unknown) mg to 20 mg at bedtime. There was also (unknown) (no (unknown) (unknown) Zyprexa.? 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 unknown) (unknown) (no (unknown) (unknown) admission (units (unkn own) date) unknown) (unknown) (no (unknown) (unknown) amoxicillin-pot (units (unknown) date) clavulanate [id number] unknown) mg tablet (unknown) (no (unknown) (unknown) and was on (units (unk nown) date) apixaban.? She is unknown) no longer on blood thinne and unknown whether IVC (unknown) (no (unknown) (unknown) baseline secondary (units (unknown) date) to schizophrenia unknown) and history was obtained from mom via (unknown) (no (unknown) (unknown) caregivers. (units (un known) date) unknown) (unknown) (no (unknown) (unknown) complaining of (units (unknown) date) abdominal pain. unknown) (unknown) (no (unknown) (unknown) days ago.? On ED (units (unknown) date) evaluation, patient unknown) was tachypneic, tachycardic and febrile (unknown) (no (unknown) (unknown) department with (units (unknown) date) septic shock. unknown) Etiology was not entirely clear. She was placed (unknown) (no (unknown) (unknown) discharged as (units (unknown) date) Agustin her unknown) psychiatrist retired this summer. They are now (unknown) (no (unknown) (unknown) drainage from the (units (unknown) date) ear, upon further unknown) investigation it does appear she has a small (unknown) (no (unknown) (unknown) due to hypotension (units (unknown) date) from her shock. unknown) Wound care consult was obtained secondary to (unknown) (no (unknown) (unknown) during the (units (unk nown) date) pandemic she would unknown) not been seen by Psychiatry. She was ultimately (unknown) (no (unknown) (unknown) eats well at home. (units (unknown) date) She was drinking unknown) adequate fluids. Family felt they would be (unknown) (no (unknown) (unknown) face areas.? She (units (unknown) date) was seen at [facility] unknown) [facility] and started on cephalexin about 10 (unknown) (no (unknown) (unknown) felt septic shock (units (unknown) date) was secondary to unknown) soft tissue infection, possible viral (unknown) (no (unknown) (unknown) filter was (units (unk n) date) removed.? Family unknown) has not noticed patient having a cough, or (unknown) (no (unknown) (unknown) given her limited (units (unknown) date) ability to comply, unknown) encouraged him to use a blow dryer at the (unknown) (no (unknown) (unknown) having (units (unkno wn) date) uncontrollable unknown) behavior in the ER but calm down nicely after given 20 mg (unknown) (no (unknown) (unknown) [place] (units (unk nown) date) language) unknown) (unknown) (no (unknown) (unknown) her significant (units (unknown) date) wounds from her unknown) skin picking. Wound care physician recommended (unknown) (no (unknown) (unknown) hopeful to get (units (unknown) date) established with a unknown) new psychiatrist. Care management was working (unknown) (no (unknown) (unknown) hours as needed (units (unknown) date) unknown) (unknown) (no (unknown) (unknown) household members: (units (unknown) date) family unknown) (unknown) (no (unknown) (unknown) keep her right ear (units (unknown) date) dry particularly if unknown) she showers. If they are unable to do so (unknown) (no (unknown) (unknown) lesions noted to (units (unknown) date) the bilateral unknown) medial cheeks as well as the nose (unknown) (no (unknown) (unknown) lowest setting to (units (unknown) date) help keep water out unknown) of her ear canal. (unknown) (no (unknown) (unknown) map of 65.? She (units (unknown) date) had right IJ unknown) central line put in while in the ER.? EKG showed (unknown) (no (unknown) (unknown) milliliters/kilogr (units (unknown) date) am for sepsis unknown) protocol, and subsequently dropped her blood (unknown) (no (unknown) (unknown) mupirocin 2 % (units ( unknown) date) Ointment unknown) (unknown) (no (unknown) (unknown) mupirocin b.i.d. as (units (unknown) date) well as Xeroform unknown) gauze to the ulcer to the back of her neck. (unknown) (no (unknown) (unknown) of discharge (units (u nknown) date) unknown) (unknown) (no (unknown) (unknown) olanzapine 15 mg (units (unknown) date) tablet unknown) (unknown) (no (unknown) (unknown) olanzapine (units (unk nown) date) [Zyprexa Zydis] 10 unknown) mg Tablet,Disintegrati ng (unknown) (no (unknown) (unknown) on broad-spectrum (units (unknown) date) antibiotics. Tele unknown) anesthesia assistant consult was obtained and it was (unknown) (no (unknown) (unknown) perforation along (units (unknown) date) the inferior aspect unknown) of the tympanic membrane (unknown) (no (unknown) (unknown) pneumonia. (units (unk nown) date) Respiratory unknown) cultures were negative. Patient did require pressors (unknown) (no (unknown) (unknown) pressure to (units (un known) date) 87/55.? She then unknown) got started on Levophed, currently on 3 mcg with (unknown) (no (unknown) (unknown) recommendation to (units (unknown) date) increase unknown) fluoxetine, but patient's family felt she became too (unknown) (no (unknown) (unknown) sedated with it. (units (unknown) date) By February 10, unknown) patient had been afebrile for 24 hours. (unknown) (no (unknown) (unknown) sinus rhythm with (units (unknown) date) PACs, normal unknown) intervals.? 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 (units (u nknown) date) Patient is reported unknown) to have frequent itching/picking on head and (unknown) (no (unknown) (unknown) with temp 101.8?.? (units (unknown) date) Initially unknown) normotensive, got fluid bolus 30 (unknown) (no (unknown) (unknown) with them on (units (u nknown) date) coordinating that unknown) at the time of discharge. Result panel 516 (unknown) (no date) (unknown) (unknown) (no value) (units (un known) unknown) (unknown) (no date) (unknown) (unknown) NO GROWTH (units (unk nown) AFTER 5 DAYS unknown) Result panel 517 (unknown) (no date) (unknown) (unknown) (no value) (units (un known) unknown) (unknown) (no date) (unknown) (unknown) NO GROWTH (units (unk nown) AFTER 5 DAYS unknown) Result panel 518 (unknown) (no date) (unknown) (unknown) (no value) (units (un known) unknown) (unknown) (no date) (unknown) (unknown) NO GROWTH (units (unk nown) AFTER 72 unknown) HOURS (unknown) (no date) (unknown) (unknown) NO GROWTH (units (unk nown) AFTER 72 unknown) HOURS Result panel 519 (unknown) (no date) (unknown) (unknown) (no value) (units (un known) unknown) (unknown) (no date) (unknown) (unknown) NO GROWTH (units (unk nown) AFTER 72 unknown) HOURS (unknown) (no date) (unknown) (unknown) NO GROWTH (units (unk nown) AFTER 72 unknown) HOURS Result panel 520 (unknown) (no date) (unknown) (unknown) (no value) (units (un known) unknown) (unknown) (no date) (unknown) (unknown) NO GROWTH (units (unk nown) AFTER 4 DAYS unknown) (unknown) (no date) (unknown) (unknown) NO GROWTH (units (unk nown) AFTER 4 DAYS unknown) Result panel 521 (unknown) (no date) (unknown) (unknown) (no value) (units (un known) unknown) (unknown) (no date) (unknown) (unknown) NO GROWTH (units (unk nown) AFTER 4 DAYS unknown) (unknown) (no date) (unknown) (unknown) NO GROWTH (units (unk nown) AFTER 4 DAYS unknown) Result panel 522 (unknown) (no date) (unknown) (unknown) (no value) (units (un known) unknown) (unknown) (no date) (unknown) (unknown) NO GROWTH (units (unk nown) AFTER 5 DAYS unknown) (unknown) (no date) (unknown) (unknown) NO GROWTH (units (unk nown) AFTER 5 DAYS unknown) Result panel 523 (unknown) (no date) (unknown) (unknown) (no value) (units (un known) unknown) (unknown) (no date) (unknown) (unknown) NO GROWTH (units (unk nown) AFTER 5 DAYS unknown) (unknown) (no date) (unknown) (unknown) NO GROWTH (units (unk nown) AFTER 5 DAYS unknown) Result panel 524 (unknown) (no date) (unknown) (unknown) 0 /ul (unkn own) (unknown) (no date) (unknown) (unknown) 0.0 % (unkn own) (unknown) (no date) (unknown) (unknown) 1.2 % (unkn own) (unknown) (no date) (unknown) (unknown) 10.3 % (unkn own) (unknown) (no date) (unknown) (unknown) 10.6 g/dl (unkn own) (unknown) (no date) (unknown) (unknown) 100 /ul (unkn own) (unknown) (no date) (unknown) (unknown) 15.2 % (unkn own) (unknown) (no date) (unknown) (unknown) 18.2 % (unkn own) (unknown) (no date) (unknown) (unknown) 28.1 pg (unkn own) (unknown) (no date) (unknown) (unknown) 3.75 x10 6/ul (unkn own) (unknown) (no date) (unknown) (unknown) 32.0 % (unkn own) (unknown) (no date) (unknown) (unknown) 32.9 % (unkn own) (unknown) (no date) (unknown) (unknown) 3400 /ul (unkn own) (unknown) (no date) (unknown) (unknown) 4.8 x10 3/ul (unkn own) (unknown) (no date) (unknown) (unknown) 500 /ul (unkn own) (unknown) (no date) (unknown) (unknown) 70.3 % (unkn own) (unknown) (no date) (unknown) (unknown) 85.3 fl (unkn own) (unknown) (no date) (unknown) (unknown) 900 /ul (unkn own) (unknown) (no date) (unknown) (unknown) 99 x10 3/ul (unkn own) Result panel 525 (unknown) (no date) (unknown) (unknown) > 60 ml/min (unkn own) (unknown) (no date) (unknown) (unknown) > 60 ml/min (unkn own) (unknown) (no date) (unknown) (unknown) < 1.0 mg/dl (unkn own) (unknown) (no date) (unknown) (unknown) < 1.0 mg/dl (unkn own) (unknown) (no date) (unknown) (unknown) < 10 mg/dl (unkn own) (unknown) (no date) (unknown) (unknown) < 10 mg/dl (unkn own) (unknown) (no date) (unknown) (unknown) < 10 ug/ml (unkn own) (unknown) (no date) (unknown) (unknown) < 10 ug/ml (unkn own) (unknown) (no date) (unknown) (unknown) 0.5 mg/dl (unkn own) (unknown) (no date) (unknown) (unknown) 0.61 mg/dl (unkn own) (unknown) (no date) (unknown) (unknown) 0.9 (units unknown) (unknown) (unknown) (no date) (unknown) (unknown) 1.5 mmol/l (unkn own) (unknown) (no date) (unknown) (unknown) 130 mg/dl (unkn own) (unknown) (no date) (unknown) (unknown) 130 mg/dl (unkn own) (unknown) (no date) (unknown) (unknown) 136 mmol/l (unkn own) (unknown) (no date) (unknown) (unknown) 2.1 mg/dl (unkn own) (unknown) (no date) (unknown) (unknown) 2.8 mmol/l (unkn own) (unknown) (no date) (unknown) (unknown) 29 mmol/l (unkn own) (unknown) (no date) (unknown) (unknown) 3.6 g/dl (unkn own) (unknown) (no date) (unknown) (unknown) 33 iu/l (unkn own) (unknown) (no date) (unknown) (unknown) 33 u/l (unkn own) (unknown) (no date) (unknown) (unknown) 4 mg/dl (unkn own) (unknown) (no date) (unknown) (unknown) 4.2 g/dl (unkn own) (unknown) (no date) (unknown) (unknown) 4.8 mg/dl (unkn own) (unknown) (no date) (unknown) (unknown) 55 u/l (unkn own) (unknown) (no date) (unknown) (unknown) 6.6 (units unknown) (unknown) (unknown) (no date) (unknown) (unknown) 64 iu/l (unkn own) (unknown) (no date) (unknown) (unknown) 7.8 g/dl (unkn own) (unknown) (no date) (unknown) (unknown) 8.5 mg/dl (unkn own) (unknown) (no date) (unknown) (unknown) 97 mmol/l (unkn own) Result panel 526 (unknown) (no date) (unknown) (unknown) Negative (units (unkn own) unknown) Result panel 527 (unknown) (no date) (unknown) (unknown) > 60 ml/min (unkn own) (unknown) (no date) (unknown) (unknown) > 60 ml/min (unkn own) (unknown) (no date) (unknown) (unknown) < 1.0 mg/dl (unkn own) (unknown) (no date) (unknown) (unknown) < 1.0 mg/dl (unkn own) (unknown) (no date) (unknown) (unknown) < 10 mg/dl (unkn own) (unknown) (no date) (unknown) (unknown) < 10 mg/dl (unkn own) (unknown) (no date) (unknown) (unknown) 0.08 ng/ml (unkn own) (unknown) (no date) (unknown) (unknown) 0.08 ng/ml (unkn own) (unknown) (no date) (unknown) (unknown) 0.5 mg/dl (unkn own) (unknown) (no date) (unknown) (unknown) 0.61 mg/dl (unkn own) (unknown) (no date) (unknown) (unknown) 0.9 (units unknown) (unknown) (unknown) (no date) (unknown) (unknown) 130 mg/dl (unkn own) (unknown) (no date) (unknown) (unknown) 130 mg/dl (unkn own) (unknown) (no date) (unknown) (unknown) 136 mmol/l (unkn own) (unknown) (no date) (unknown) (unknown) 2.1 mg/dl (unkn own) (unknown) (no date) (unknown) (unknown) 2.8 mmol/l (unkn own) (unknown) (no date) (unknown) (unknown) 29 mmol/l (unkn own) (unknown) (no date) (unknown) (unknown) 3.6 g/dl (unkn own) (unknown) (no date) (unknown) (unknown) 33 iu/l (unkn own) (unknown) (no date) (unknown) (unknown) 33 u/l (unkn own) (unknown) (no date) (unknown) (unknown) 4 mg/dl (unkn own) (unknown) (no date) (unknown) (unknown) 4.2 g/dl (unkn own) (unknown) (no date) (unknown) (unknown) 4.8 mg/dl (unkn own) (unknown) (no date) (unknown) (unknown) 55 u/l (unkn own) (unknown) (no date) (unknown) (unknown) 6.6 (units unknown) (unknown) (unknown) (no date) (unknown) (unknown) 64 iu/l (unkn own) (unknown) (no date) (unknown) (unknown) 7.8 g/dl (unkn own) (unknown) (no date) (unknown) (unknown) 8.5 mg/dl (unkn own) (unknown) (no date) (unknown) (unknown) 97 mmol/l (unkn own) Result panel 528 (unknown) (no date) (unknown) (unknown) 3.58 uiu/ml (unkn own) Result panel 529 (unknown) (no (unknown) (unknown) (no value) (units (unk nown) date) unknown) (unknown) (no (unknown) (unknown) 06:15 02/17/22 (units (unknown) date) unknown) (unknown) (no (unknown) (unknown) 06:25 02/17/22 (units (unknown) date) unknown) (unknown) (no (unknown) (unknown) 06:30 (units (unkno wn) date) unknown) (unknown) (no (unknown) (unknown) 06:55 06:55 (units (un known) date) 06:55 unknown) (unknown) (no (unknown) (unknown) 07:00 02/17/22 (units (unknown) date) unknown) (unknown) (no (unknown) (unknown) 07:07 02/17/22 (units (unknown) date) unknown) (unknown) (no (unknown) (unknown) 07:07 (units (unkno wn) date) unknown) (unknown) (no (unknown) (unknown) 07:10 02/17/22 (units (unknown) date) unknown) (unknown) (no (unknown) (unknown) 07:15 (units (unkno wn) date) unknown) (unknown) (no (unknown) (unknown) 1 applic topical (units (unknown) date) BID Qty: 45 0RF unknown) (unknown) (no (unknown) (unknown) 1 tab PO Q12H (units ( unknown) date) Qty: 10 0RF unknown) (unknown) (no (unknown) (unknown) 02/17/22 06:33 (units (unknown) date) unknown) (unknown) (no (unknown) (unknown) 02/17/22 06:34 (units (unknown) date) unknown) (unknown) (no (unknown) (unknown) 02/17/22 06:55 (units (unknown) date) unknown) (unknown) (no (unknown) (unknown) 02/17/22 (units (unkno wn) date) 02/17/22 02/17/22 unknown) Range/Units (unknown) (no (unknown) (unknown) 02/17/22 (units (unkno wn) date) unknown) (unknown) (no (unknown) (unknown) 20 mg PO BEDTIME (units (unknown) date) Qty: 60 0RF unknown) (unknown) (no (unknown) (unknown) ALT (<35) IU/L (units (unknown) date) unknown) (unknown) (no (unknown) (unknown) ALT 33 (<35) (units (u nknown) date) IU/L unknown) (unknown) (no (unknown) (unknown) AST (14-36) IU/L (units (unknown) date) unknown) (unknown) (no (unknown) (unknown) AST 64 H (14-36) (units (unknown) date) IU/L unknown) (unknown) (no (unknown) (unknown) Acetaminophen < (units (unknown) date) 10 (10-30) ug/mL unknown) (unknown) (no (unknown) (unknown) Acetaminophen (units ( unknown) date) (10-30) ug/mL unknown) (unknown) (no (unknown) (unknown) Acetaminophen (units ( unknown) date) Stat unknown) (unknown) (no (unknown) (unknown) Admin: 02/17/22 (units (unknown) date) 07:03 Dose: 1,000 unknown) mls/hr (unknown) (no (unknown) (unknown) Age/Sex: 31 / F (units (unknown) date) unknown) (unknown) (no (unknown) (unknown) Albumin (units (unkno wn) date) (3.5-5.0) g/dL unknown) (unknown) (no (unknown) (unknown) Albumin 3.6 (units (un known) date) (3.5-5.0) g/dL unknown) (unknown) (no (unknown) (unknown) Albumin/Globulin (units (unknown) date) Ratio (1.0-2.8) unknown) (unknown) (no (unknown) (unknown) Albumin/Globulin (units (unknown) date) Ratio 0.9 L unknown) (1.0-2.8) (unknown) (no (unknown) (unknown) Alkaline (units (unkno wn) date) Phosphatase unknown) (38-126) U/L (unknown) (no (unknown) (unknown) Alkaline (units (unkno wn) date) Phosphatase 55 unknown) (38-126) U/L (unknown) (no (unknown) (unknown) Allergies (units (unkn own) date) unknown) (unknown) (no (unknown) (unknown) Allergy/AdvReac (units (unknown) date) Type Severity unknown) Reaction Status Date / Time (unknown) (no (unknown) (unknown) BUN (7-17) mg/dL (units (unknown) date) unknown) (unknown) (no (unknown) (unknown) BUN 4 L (7-17) (units (unknown) date) mg/dL unknown) (unknown) (no (unknown) (unknown) BUN/Creatinine (units (unknown) date) Ratio (6-22) unknown) (unknown) (no (unknown) (unknown) BUN/Creatinine (units (unknown) date) Ratio 6.6 (6-22) unknown) (unknown) (no (unknown) (unknown) Baso # (Auto) (units ( unknown) date) (0-100) /uL unknown) (unknown) (no (unknown) (unknown) Baso # (Auto) (units ( unknown) date) 100 (0-100) /uL unknown) (unknown) (no (unknown) (unknown) Baso % (Auto) (units ( unknown) date) (0-2) % unknown) (unknown) (no (unknown) (unknown) Baso % (Auto) (units ( unknown) date) 1.2 (0-2) % unknown) (unknown) (no (unknown) (unknown) Blood Pressure (units (unknown) date) 101/52 L 106/51 L unknown) (unknown) (no (unknown) (unknown) Blood Pressure (units (unknown) date) 82/52 L 02/17/22 unknown) 06:15 (unknown) (no (unknown) (unknown) Blood Pressure (units (unknown) date) 82/52 L unknown) (unknown) (no (unknown) (unknown) Blood Pressure (units (unknown) date) 91/50 L unknown) (unknown) (no (unknown) (unknown) Blood Pressure (units (unknown) date) unknown) (unknown) (no (unknown) (unknown) Calcium (units (unkno wn) date) (8.4-10.2) mg/dL unknown) (unknown) (no (unknown) (unknown) Calcium 8.5 (units (un known) date) (8.4-10.2) mg/dL unknown) (unknown) (no (unknown) (unknown) Carbon Dioxide (units (unknown) date) (22-32) mmol/L unknown) (unknown) (no (unknown) (unknown) Carbon Dioxide (units (unknown) date) 29 (22-32) mmol/L unknown) (unknown) (no (unknown) (unknown) Chief complaint: (units (unknown) date) Weakness unknown) (unknown) (no (unknown) (unknown) Chloride (units (o wn) date) (98-107) mmol/L unknown) (unknown) (no (unknown) (unknown) Chloride 97 L (units ( unknown) date) (98-107) mmol/L unknown) (unknown) (no (unknown) (unknown) Complete Blood (units (unknown) date) Count AUTO DIFF unknown) Stat (unknown) (no (unknown) (unknown) Comprehensive (units ( unknown) date) Metabolic Panel unknown) Stat (unknown) (no (unknown) (unknown) Consult to FACE PAINTER - (units (unknown) date) Community Engagement Manager unknown) Stat (unknown) (no (unknown) (unknown) Course (units (o wn) date) unknown) (unknown) (no (unknown) (unknown) Creatinine (units (unk nown) date) (0.52-1.04) mg/dL unknown) (unknown) (no (unknown) (unknown) Creatinine 0.61 (units (unknown) date) (0.52-1.04) mg/dL unknown) (unknown) (no (unknown) (unknown) : 1990 (units (unknown) date) Acct:[id number] unknown) (unknown) (no (unknown) (unknown) Date of Service: (units (unknown) date) 02/17/22 unknown) (unknown) (no (unknown) (unknown) Departure (units (unkn own) date) unknown) (unknown) (no (unknown) (unknown) Discharge Plan (units (unknown) date) unknown) (unknown) (no (unknown) (unknown) Discontinued (units (u nknown) date) Medications unknown) (unknown) (no (unknown) (unknown) Documented By: (units (unknown) date) AT unknown) (unknown) (no (unknown) (unknown) Documented By: (units (unknown) date) JACI unknown) (unknown) (no (unknown) (unknown) ED Orders (units (unkn own) date) unknown) (unknown) (no (unknown) (unknown) ER Physician: (units ( unknown) date) Margarita Pena unknown) D.O. (unknown) (no (unknown) (unknown) Emergency Report (units (unknown) date) unknown) (unknown) (no (unknown) (unknown) Eos # (Auto) (units (u nknown) date) (0-450) /uL unknown) (unknown) (no (unknown) (unknown) Eos # (Auto) 0 (units (unknown) date) (0-450) /uL unknown) (unknown) (no (unknown) (unknown) Eos % (Auto) (units (u nknown) date) (2-4) % unknown) (unknown) (no (unknown) (unknown) Eos % (Auto) 0.0 (units (unknown) date) L (2-4) % unknown) (unknown) (no (unknown) (unknown) Estimated GFR > (units (unknown) date) 60 (>60) mL/min unknown) (unknown) (no (unknown) (unknown) Estimated GFR (units ( unknown) date) (>60) mL/min unknown) (unknown) (no (unknown) (unknown) Ethanol (ETOH) (units (unknown) date) Stat unknown) (unknown) (no (unknown) (unknown) Ethyl Alcohol < (units (unknown) date) 10 ( - 10) mg/dL unknown) (unknown) (no (unknown) (unknown) Ethyl Alcohol ( (units (unknown) date) - 10) mg/dL unknown) (unknown) (no (unknown) (unknown) Exam (units (unkno wn) date) unknown) (unknown) (no (unknown) (unknown) General (units (unkno wn) date) unknown) (unknown) (no (unknown) (unknown) Globulin (units (o wn) date) (1.7-4.1) g/dL unknown) (unknown) (no (unknown) (unknown) Globulin 4.2 H (units (unknown) date) (1.7-4.1) g/dL unknown) (unknown) (no (unknown) (unknown) Glucose (70-100) (units (unknown) date) mg/dL unknown) (unknown) (no (unknown) (unknown) Glucose 130 H (units ( unknown) date) (70-100) mg/dL unknown) (unknown) (no (unknown) (unknown) HPI - General (units ( unknown) date) Adult unknown) (unknown) (no (unknown) (unknown) Hct (36-46) % (units ( unknown) date) unknown) (unknown) (no (unknown) (unknown) Hct 32.0 L (units (unk n) date) (36-46) % unknown) (unknown) (no (unknown) (unknown) Hgb (12.0-16.0) (units (unknown) date) g/dL unknown) (unknown) (no (unknown) (unknown) Hgb 10.6 L (units (unk n) date) (12.0-16.0) g/dL unknown) (unknown) (no (unknown) (unknown) 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) (unknown) (no (unknown) (unknown) 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7-2.1) mmol/L unknown) (unknown) (no (unknown) (unknown) Lactate (Lactic (units (unknown) date) Acid) Stat unknown) (unknown) (no (unknown) (unknown) Lactate 1.5 (units (un known) date) (0.7-2.1) mmol/L unknown) (unknown) (no (unknown) (unknown) Last Admin: (units (un known) date) 02/17/22 08:08 unknown) Dose: 40 meq (unknown) (no (unknown) (unknown) Last Infusion: (units (unknown) date) 02/17/22 08:10 unknown) Dose: 0 mls/hr (unknown) (no (unknown) (unknown) Lipase (23-300) (units (unknown) date) U/L unknown) (unknown) (no (unknown) (unknown) Lipase 33 (units (unkn own) date) (23-300) U/L unknown) (unknown) (no (unknown) (unknown) Lipase Stat (units (un known) date) unknown) (unknown) (no (unknown) (unknown) Lymph # (Auto) (units (unknown) date) (9112-7556) /uL unknown) (unknown) (no (unknown) (unknown) Lymph # (Auto) (units (unknown) date) 900 L (3660-6075) unknown) /uL (unknown) (no (unknown) (unknown) Lymph % (Auto) (units (unknown) date) (25-40) % unknown) (unknown) (no (unknown) (unknown) Lymph % (Auto) (units (unknown) date) 18.2 L (25-40) % unknown) (unknown) (no (unknown) (unknown) [id number] (units (unk nown) date) unknown) (unknown) (no (unknown) (unknown) MCH (26-34) PG (units (unknown) date) unknown) (unknown) (no (unknown) (unknown) MCH 28.1 (26-34) (units (unknown) date) PG unknown) (unknown) (no (unknown) (unknown) MCHC (30-36) % (units (unknown) date) unknown) (unknown) (no (unknown) (unknown) MCHC 32.9 (units (unkn own) date) (30-36) % unknown) (unknown) (no (unknown) (unknown) MCV (80-100) fL (units (unknown) date) unknown) (unknown) (no (unknown) (unknown) MCV 85.3 (units (unkno wn) date) (80-100) fL unknown) (unknown) (no (unknown) (unknown) Magnesium (units (unkn own) date) (1.6-2.3) mg/dL unknown) (unknown) (no (unknown) (unknown) Magnesium 2.1 (units ( unknown) date) (1.6-2.3) mg/dL unknown) (unknown) (no (unknown) (unknown) Magnesium Stat (units (unknown) date) unknown) (unknown) (no (unknown) (unknown) Medical Decision (units (unknown) date) Making unknown) (unknown) (no (unknown) (unknown) Medical History (units (unknown) date) (Reviewed unknown) 02/08/22 @ 16:42 by Asa Khan MD) (unknown) (no (unknown) (unknown) Medication (units (unk nown) date) Instructions unknown) Recorded (unknown) (no (unknown) (unknown) Miscellaneous,Do (units (unknown) date) MD roman [Primary unknown) Care Provider] (unknown) (no (unknown) (unknown) Mode of arrival: (units (unknown) date) Wheelchair unknown) (unknown) (no (unknown) (unknown) Butts # (Auto) (units ( unknown) date) (0-900) /uL unknown) (unknown) (no (unknown) (unknown) Butts # (Auto) (units ( unknown) date) 500 (0-900) /uL unknown) (unknown) (no (unknown) (unknown) Butts % (Auto) (units ( unknown) date) (3-14) % unknown) (unknown) (no (unknown) (unknown) Butts % (Auto) (units ( unknown) date) 10.3 (3-14) % unknown) (unknown) (no (unknown) (unknown) Neut # (Auto) (units ( unknown) date) (1464-3512) /uL unknown) (unknown) (no (unknown) (unknown) Neut # (Auto) (units ( unknown) date) 3400 (0664-0277) unknown) /uL (unknown) (no (unknown) (unknown) Neut % (Auto) (units ( unknown) date) (50-75) % unknown) (unknown) (no (unknown) (unknown) Neut % (Auto) (units ( unknown) date) 70.3 (50-75) % unknown) (unknown) (no (unknown) (unknown) No Action (units (unkn own) date) unknown) (unknown) (no (unknown) (unknown) Ordered: (units (unkno wn) date) unknown) (unknown) (no (unknown) (unknown) Orders (units (unkno wn) date) unknown) (unknown) (no (unknown) (unknown) Oxygen Delivery (units (unknown) date) Method 02/17/22 unknown) 06:15 (unknown) (no (unknown) (unknown) Oxygen Delivery (units (unknown) date) Method Room Air unknown) (unknown) (no (unknown) (unknown) Oxygen Delivery (units (unknown) date) Method unknown) (unknown) (no (unknown) (unknown) Patient History (units (unknown) date) unknown) (unknown) (no (unknown) (unknown) Patient: (units (unkno wn) date) Vanessa Mills unknown) B MR#: (unknown) (no (unknown) (unknown) Phosphorous Stat (units (unknown) date) unknown) (unknown) (no (unknown) (unknown) Phosphorus (units (unk nown) date) (2.5-4.5) mg/dL unknown) (unknown) (no (unknown) (unknown) Phosphorus 4.8 H (units (unknown) date) (2.5-4.5) mg/dL unknown) (unknown) (no (unknown) (unknown) Plt Count (units (unkn own) date) (150-400) X103/uL unknown) (unknown) (no (unknown) (unknown) Plt Count 99 L (units (unknown) date) (150-400) X103/uL unknown) (unknown) (no (unknown) (unknown) Potassium (units (unkn own) date) (3.4-5.1) mmol/L unknown) (unknown) (no (unknown) (unknown) Potassium 2.8 L (units (unknown) date) (3.4-5.1) mmol/L unknown) (unknown) (no (unknown) (unknown) Potassium (units (unkn own) date) Chloride unknown) (Potassium Chloride 20 Meq Tab) 40 meq PO NOW ONE (unknown) (no (unknown) (unknown) Test (units (unknown) date) Serum,Qual Stat unknown) (unknown) (no (unknown) (unknown) Prescriptions: (units (unknown) date) unknown) (unknown) (no (unknown) (unknown) Previous Rx's (units ( unknown) date) unknown) (unknown) (no (unknown) (unknown) Procalcitonin (units ( unknown) date) (<0.5) ng/mL unknown) (unknown) (no (unknown) (unknown) Procalcitonin (units ( unknown) date) 0.08 (<0.5) ng/mL unknown) (unknown) (no (unknown) (unknown) Procalcitonin (units ( unknown) date) Stat unknown) (unknown) (no (unknown) (unknown) Pulse Oximetry (units (unknown) date) 100 100 100 unknown) (unknown) (no (unknown) (unknown) Pulse Oximetry (units (unknown) date) 100 02/17/22 unknown) 06:15 (unknown) (no (unknown) (unknown) Pulse Oximetry (units (unknown) date) 100 unknown) (unknown) (no (unknown) (unknown) Pulse Oximetry (units (unknown) date) 98 99 unknown) (unknown) (no (unknown) (unknown) Pulse Oximetry (units (unknown) date) 98 unknown) (unknown) (no (unknown) (unknown) Pulse Rate 107 H (units (unknown) date) 105 H 112 H unknown) (unknown) (no (unknown) (unknown) Pulse Rate 107 H (units (unknown) date) 02/17/22 06:15 unknown) (unknown) (no (unknown) (unknown) Pulse Rate 108 H (units (unknown) date) 99 H unknown) (unknown) (no (unknown) (unknown) Pulse Rate 92 H (units (unknown) date) unknown) (unknown) (no (unknown) (unknown) Pulse Rate 97 H (units (unknown) date) unknown) (unknown) (no (unknown) (unknown) RBC (4.0-5.2) (units ( unknown) date) X106/uL unknown) (unknown) (no (unknown) (unknown) RBC 3.75 L (units (unk nown) date) (4.0-5.2) X106/uL unknown) (unknown) (no (unknown) (unknown) RDW (11.6-14.8) (units (unknown) date) % unknown) (unknown) (no (unknown) (unknown) RDW 15.2 H (units (unk nown) date) (11.6-14.8) % unknown) (unknown) (no (unknown) (unknown) Referrals: (units (unk nown) date) unknown) (unknown) (no (unknown) (unknown) Related Data (units (u nknown) date) unknown) (unknown) (no (unknown) (unknown) Respiratory Rate (units (unknown) date) 18 02/17/22 06:15 unknown) (unknown) (no (unknown) (unknown) Respiratory Rate (units (unknown) date) 18 unknown) (unknown) (no (unknown) (unknown) Respiratory Rate (units (unknown) date) unknown) (unknown) (no (unknown) (unknown) Result diagrams: (units (unknown) date) unknown) (unknown) (no (unknown) (unknown) Salicylate Stat (units (unknown) date) unknown) (unknown) (no (unknown) (unknown) Salicylates < (units ( unknown) date) 1.0 (<20) mg/dL unknown) (unknown) (no (unknown) (unknown) Salicylates (units (un known) date) (<20) mg/dL unknown) (unknown) (no (unknown) (unknown) Schizophrenia (units ( unknown) date) unknown) (unknown) (no (unknown) (unknown) Serum , (units (unknown) date) Qual (Negative) unknown) (unknown) (no (unknown) (unknown) Serum , (units (unknown) date) Qual Negative unknown) (Negative) (unknown) (no (unknown) (unknown) Signed By: (units (unk nown) date) unknown) (unknown) (no (unknown) (unknown) Smoking Status: (units (unknown) date) Never smoker unknown) (unknown) (no (unknown) (unknown) Social History (units (unknown) date) unknown) (unknown) (no (unknown) (unknown) Sodium (137-145) (units (unknown) date) mmol/L unknown) (unknown) (no (unknown) (unknown) Sodium 136 L (units (u nknown) date) (137-145) mmol/L unknown) (unknown) (no (unknown) (unknown) Sodium Chloride (units (unknown) date) (Normal Saline unknown) 0.9%) 1,000 mls @ 1,000 mls/hr IV BOLUS ONE (unknown) (no (unknown) (unknown) Source: patient, (units (unknown) date) family and old unknown) records reviewed (unknown) (no (unknown) (unknown) Stated (units (unkno wn) date) complaint: hasnt unknown) eaten in 6 days (unknown) (no (unknown) (unknown) Stop: 02/17/22 (units (unknown) date) 07:31 unknown) (unknown) (no (unknown) (unknown) Stop: 02/17/22 (units (unknown) date) 07:53 unknown) (unknown) (no (unknown) (unknown) Substance Use (units ( unknown) date) Type: does not unknown) use (unknown) (no (unknown) (unknown) TSH (0.47-4.68) (units (unknown) date) uIU/mL unknown) (unknown) (no (unknown) (unknown) TSH 3.58 (units (unkno wn) date) (0.47-4.68) unknown) uIU/mL (unknown) (no (unknown) (unknown) Temperature 99.2 (units (unknown) date) F 02/17/22 06:15 unknown) (unknown) (no (unknown) (unknown) Temperature 99.2 (units (unknown) date) F unknown) (unknown) (no (unknown) (unknown) Temperature (units (un known) date) unknown) (unknown) (no (unknown) (unknown) Thyroid (units (unkno wn) date) Stimulating unknown) Hormone Stat (unknown) (no (unknown) (unknown) Time Seen by (units (u nknown) date) Provider: unknown) 02/17/22 06:17 (unknown) (no (unknown) (unknown) Total Bilirubin (units (unknown) date) (0.2-1.3) mg/dL unknown) (unknown) (no (unknown) (unknown) Total Bilirubin (units (unknown) date) 0.5 (0.2-1.3) unknown) mg/dL (unknown) (no (unknown) (unknown) Total Protein (units ( unknown) date) (6.3-8.2) g/dL unknown) (unknown) (no (unknown) (unknown) Total Protein (units ( unknown) date) 7.8 (6.3-8.2) unknown) g/dL (unknown) (no (unknown) (unknown) Urinalysis and (units (unknown) date) Microscopic Stat unknown) (unknown) (no (unknown) (unknown) Urine Drug (units (unk nown) date) Screen, Rapid unknown) Stat (unknown) (no (unknown) (unknown) Vital Signs - 8 (units (unknown) date) hr unknown) (unknown) (no (unknown) (unknown) Vital Signs (units (un known) date) unknown) (unknown) (no (unknown) (unknown) Vital signs: (units (u nknown) date) unknown) (unknown) (no (unknown) (unknown) WBC (4.5-11.0) (units (unknown) date) X103/uL unknown) (unknown) (no (unknown) (unknown) WBC 4.8 (units (unkno wn) date) (4.5-11.0) unknown) X103/uL (unknown) (no (unknown) (unknown) [Embedded Image (units (unknown) date) Not Available] unknown) (unknown) (no (unknown) (unknown) amoxicillin 875 (units (unknown) date) mg-potassium 1 unknown) tab PO Q12H #10 tabs 02/11/22 (unknown) (no (unknown) (unknown) amoxicillin-pot (units (unknown) date) clavulanate unknown) 875-125 mg tablet (unknown) (no (unknown) (unknown) clavulanate 125 (units (unknown) date) mg tablet unknown) (unknown) (no (unknown) (unknown) household (units (unkn own) date) members: family unknown) (unknown) (no (unknown) (unknown) mirtazapine (units (un known) date) AdvReac unknown) Intermediate Rash severe Verified 01/30/22 06:52 (unknown) (no (unknown) (unknown) mupirocin 2 % (units ( unknown) date) Ointment unknown) (unknown) (no (unknown) (unknown) mupirocin 2 % (units ( unknown) date) topical ointment unknown) 1 applic topical BID #45 grams 02/11/22 (unknown) (no (unknown) (unknown) olanzapine 10 mg (units (unknown) date) disintegrating 20 unknown) mg PO BEDTIME #60 tabs 02/11/22 (unknown) (no (unknown) (unknown) olanzapine (units (unk nown) date) [Zyprexa Zydis] unknown) 10 mg Tablet,Disintegra ting (unknown) (no (unknown) (unknown) tablet (Zyprexa (units (unknown) date) Zydis) unknown) Result panel 530 (unknown) (no (unknown) (unknown) (no value) (units (unk nown) date) unknown) (unknown) (no (unknown) (unknown) 06:15 02/17/22 (units (unknown) date) unknown) (unknown) (no (unknown) (unknown) 06:25 02/17/22 (units (unknown) date) unknown) (unknown) (no (unknown) (unknown) 06:30 (units (unkno wn) date) unknown) (unknown) (no (unknown) (unknown) 06:55 06:55 (units (un known) date) 06:55 unknown) (unknown) (no (unknown) (unknown) 07:00 02/17/22 (units (unknown) date) unknown) (unknown) (no (unknown) (unknown) 07:07 02/17/22 (units (unknown) date) unknown) (unknown) (no (unknown) (unknown) 07:07 (units (unkno wn) date) unknown) (unknown) (no (unknown) (unknown) 07:10 02/17/22 (units (unknown) date) unknown) (unknown) (no (unknown) (unknown) 07:15 02/17/22 (units (unknown) date) unknown) (unknown) (no (unknown) (unknown) 07:15 (units (unkno wn) date) unknown) (unknown) (no (unknown) (unknown) 07:20 02/17/22 (units (unknown) date) unknown) (unknown) (no (unknown) (unknown) 07:20 (units (unkno wn) date) unknown) (unknown) (no (unknown) (unknown) 07:25 02/17/22 (units (unknown) date) unknown) (unknown) (no (unknown) (unknown) 07:30 02/17/22 (units (unknown) date) unknown) (unknown) (no (unknown) (unknown) 07:30 (units (unkno wn) date) unknown) (unknown) (no (unknown) (unknown) 07:35 02/17/22 (units (unknown) date) unknown) (unknown) (no (unknown) (unknown) 07:35 (units (unkno wn) date) unknown) (unknown) (no (unknown) (unknown) 07:40 02/17/22 (units (unknown) date) unknown) (unknown) (no (unknown) (unknown) 07:45 02/17/22 (units (unknown) date) unknown) (unknown) (no (unknown) (unknown) 07:45 (units (unkno wn) date) unknown) (unknown) (no (unknown) (unknown) 07:50 02/17/22 (units (unknown) date) unknown) (unknown) (no (unknown) (unknown) 07:50 (units (unkno wn) date) unknown) (unknown) (no (unknown) (unknown) 07:55 02/17/22 (units (unknown) date) unknown) (unknown) (no (unknown) (unknown) 08:00 02/17/22 (units (unknown) date) unknown) (unknown) (no (unknown) (unknown) 08:00 (units (unkno wn) date) unknown) (unknown) (no (unknown) (unknown) 08:05 02/17/22 (units (unknown) date) unknown) (unknown) (no (unknown) (unknown) 08:05 (units (unkno wn) date) unknown) (unknown) (no (unknown) (unknown) 08:10 02/17/22 (units (unknown) date) unknown) (unknown) (no (unknown) (unknown) 08:20 02/17/22 (units (unknown) date) unknown) (unknown) (no (unknown) (unknown) 08:20 (units (unkno wn) date) unknown) (unknown) (no (unknown) (unknown) 08:26 02/17/22 (units (unknown) date) unknown) (unknown) (no (unknown) (unknown) 08:26 (units (unkno wn) date) unknown) (unknown) (no (unknown) (unknown) 08:30 (units (unkno wn) date) unknown) (unknown) (no (unknown) (unknown) 1 applic topical (units (unknown) date) BID Qty: 45 0RF unknown) (unknown) (no (unknown) (unknown) 1 tab PO Q12H (units ( unknown) date) Qty: 10 0RF unknown) (unknown) (no (unknown) (unknown) 02/17/22 06:33 (units (unknown) date) unknown) (unknown) (no (unknown) (unknown) 02/17/22 06:34 (units (unknown) date) unknown) (unknown) (no (unknown) (unknown) 02/17/22 06:55 (units (unknown) date) unknown) (unknown) (no (unknown) (unknown) 02/17/22 08:34 (units (unknown) date) unknown) (unknown) (no (unknown) (unknown) 02/17/22 (units (unkno wn) date) 02/17/22 02/17/22 unknown) Range/Units (unknown) (no (unknown) (unknown) 02/17/22 (units (unkno wn) date) unknown) (unknown) (no (unknown) (unknown) 20 mg PO BEDTIME (units (unknown) date) Qty: 60 0RF unknown) (unknown) (no (unknown) (unknown) ALT (<35) IU/L (units (unknown) date) unknown) (unknown) (no (unknown) (unknown) ALT 33 (<35) (units (u nknown) date) IU/L unknown) (unknown) (no (unknown) (unknown) AST (14-36) IU/L (units (unknown) date) unknown) (unknown) (no (unknown) (unknown) AST 64 H (14-36) (units (unknown) date) IU/L unknown) (unknown) (no (unknown) (unknown) Acetaminophen < (units (unknown) date) 10 (10-30) ug/mL unknown) (unknown) (no (unknown) (unknown) Acetaminophen (units ( unknown) date) (10-30) ug/mL unknown) (unknown) (no (unknown) (unknown) Acetaminophen (units ( unknown) date) Stat unknown) (unknown) (no (unknown) (unknown) Admin: 02/17/22 (units (unknown) date) 07:03 Dose: 1,000 unknown) mls/hr (unknown) (no (unknown) (unknown) Age/Sex: 31 / F (units (unknown) date) unknown) (unknown) (no (unknown) (unknown) Albumin (units (unkno wn) date) (3.5-5.0) g/dL unknown) (unknown) (no (unknown) (unknown) Albumin 3.6 (units (un known) date) (3.5-5.0) g/dL unknown) (unknown) (no (unknown) (unknown) Albumin/Globulin (units (unknown) date) Ratio (1.0-2.8) unknown) (unknown) (no (unknown) (unknown) Albumin/Globulin (units (unknown) date) Ratio 0.9 L unknown) (1.0-2.8) (unknown) (no (unknown) (unknown) Alkaline (units (unkno wn) date) Phosphatase unknown) (38-126) U/L (unknown) (no (unknown) (unknown) Alkaline (units (unkno wn) date) Phosphatase 55 unknown) (38-126) U/L (unknown) (no (unknown) (unknown) Allergies (units (unkn own) date) unknown) (unknown) (no (unknown) (unknown) Allergy/AdvReac (units (unknown) date) Type Severity unknown) Reaction Status Date / Time (unknown) (no (unknown) (unknown) BUN (7-17) mg/dL (units (unknown) date) unknown) (unknown) (no (unknown) (unknown) BUN 4 L (7-17) (units (unknown) date) mg/dL unknown) (unknown) (no (unknown) (unknown) BUN/Creatinine (units (unknown) date) Ratio (6-22) unknown) (unknown) (no (unknown) (unknown) BUN/Creatinine (units (unknown) date) Ratio 6.6 (6-22) unknown) (unknown) (no (unknown) (unknown) Baso # (Auto) (units ( unknown) date) (0-100) /uL unknown) (unknown) (no (unknown) (unknown) Baso # (Auto) (units ( unknown) date) 100 (0-100) /uL unknown) (unknown) (no (unknown) (unknown) Baso % (Auto) (units ( unknown) date) (0-2) % unknown) (unknown) (no (unknown) (unknown) Baso % (Auto) (units ( unknown) date) 1.2 (0-2) % unknown) (unknown) (no (unknown) (unknown) Blood Pressure (units (unknown) date) 100/51 L unknown) (unknown) (no (unknown) (unknown) Blood Pressure (units (unknown) date) 100/55 L unknown) (unknown) (no (unknown) (unknown) Blood Pressure (units (unknown) date) 101/50 L 101/54 L unknown) (unknown) (no (unknown) (unknown) Blood Pressure (units (unknown) date) 101/52 L 106/51 L unknown) (unknown) (no (unknown) (unknown) Blood Pressure (units (unknown) date) 101/52 L unknown) (unknown) (no (unknown) (unknown) Blood Pressure (units (unknown) date) 101/56 L 108/55 L unknown) (unknown) (no (unknown) (unknown) Blood Pressure (units (unknown) date) 102/50 L 107/55 L unknown) (unknown) (no (unknown) (unknown) Blood Pressure (units (unknown) date) 105/54 L 102/53 L unknown) (unknown) (no (unknown) (unknown) Blood Pressure (units (unknown) date) 108/53 L unknown) (unknown) (no (unknown) (unknown) Blood Pressure (units (unknown) date) 82/52 L 02/17/22 unknown) 06:15 (unknown) (no (unknown) (unknown) Blood Pressure (units (unknown) date) 82/52 L unknown) (unknown) (no (unknown) (unknown) Blood Pressure (units (unknown) date) 91/50 L unknown) (unknown) (no (unknown) (unknown) Blood Pressure (units (unknown) date) 99/58 L unknown) (unknown) (no (unknown) (unknown) Blood Pressure (units (unknown) date) unknown) (unknown) (no (unknown) (unknown) Calcium (units (unkno wn) date) (8.4-10.2) mg/dL unknown) (unknown) (no (unknown) (unknown) Calcium 8.5 (units (un known) date) (8.4-10.2) mg/dL unknown) (unknown) (no (unknown) (unknown) Carbon Dioxide (units (unknown) date) (22-32) mmol/L unknown) (unknown) (no (unknown) (unknown) Carbon Dioxide (units (unknown) date) 29 (22-32) mmol/L unknown) (unknown) (no (unknown) (unknown) Chief complaint: (units (unknown) date) Weakness unknown) (unknown) (no (unknown) (unknown) Chloride (units (unkno wn) date) (98-107) mmol/L unknown) (unknown) (no (unknown) (unknown) Chloride 97 L (units ( unknown) date) (98-107) mmol/L unknown) (unknown) (no (unknown) (unknown) Complete Blood (units (unknown) date) Count AUTO DIFF unknown) Stat (unknown) (no (unknown) (unknown) Comprehensive (units ( unknown) date) Metabolic Panel unknown) Stat (unknown) (no (unknown) (unknown) Consult to FACE PAINTER - (units (unknown) date) Community Engagement Manager unknown) Stat (unknown) (no (unknown) (unknown) Course (units (unkno wn) date) unknown) (unknown) (no (unknown) (unknown) Creatinine (units (unk nown) date) (0.52-1.04) mg/dL unknown) (unknown) (no (unknown) (unknown) Creatinine 0.61 (units (unknown) date) (0.52-1.04) mg/dL unknown) (unknown) (no (unknown) (unknown) : 1990 (units (unknown) date) Acct:[id number] unknown) (unknown) (no (unknown) (unknown) Date of Service: (units (unknown) date) 02/17/22 unknown) (unknown) (no (unknown) (unknown) Departure (units (unkn own) date) unknown) (unknown) (no (unknown) (unknown) Discharge Plan (units (unknown) date) unknown) (unknown) (no (unknown) (unknown) Discontinued (units (u nknown) date) Medications unknown) (unknown) (no (unknown) (unknown) Documented By: (units (unknown) date) AT unknown) (unknown) (no (unknown) (unknown) Documented By: (units (unknown) date) JACI unknown) (unknown) (no (unknown) (unknown) ED Orders (units (unkn own) date) unknown) (unknown) (no (unknown) (unknown) EKG-12 Lead Stat (units (unknown) date) unknown) (unknown) (no (unknown) (unknown) ER Physician: (units ( unknown) date) Margarita Pena unknown) D.O. (unknown) (no (unknown) (unknown) Emergency Report (units (unknown) date) unknown) (unknown) (no (unknown) (unknown) Eos # (Auto) (units (u nknown) date) (0-450) /uL unknown) (unknown) (no (unknown) (unknown) Eos # (Auto) 0 (units (unknown) date) (0-450) /uL unknown) (unknown) (no (unknown) (unknown) Eos % (Auto) (units (u nknown) date) (2-4) % unknown) (unknown) (no (unknown) (unknown) Eos % (Auto) 0.0 (units (unknown) date) L (2-4) % unknown) (unknown) (no (unknown) (unknown) Estimated GFR > (units (unknown) date) 60 (>60) mL/min unknown) (unknown) (no (unknown) (unknown) Estimated GFR (units ( unknown) date) (>60) mL/min unknown) (unknown) (no (unknown) (unknown) Ethanol (ETOH) (units (unknown) date) Stat unknown) (unknown) (no (unknown) (unknown) Ethyl Alcohol < (units (unknown) date) 10 ( - 10) mg/dL unknown) (unknown) (no (unknown) (unknown) Ethyl Alcohol ( (units (unknown) date) - 10) mg/dL unknown) (unknown) (no (unknown) (unknown) Exam (units (unkno wn) date) unknown) (unknown) (no (unknown) (unknown) General (units (unkno wn) date) unknown) (unknown) (no (unknown) (unknown) Globulin (units (unkno wn) date) (1.7-4.1) g/dL unknown) (unknown) (no (unknown) (unknown) Globulin 4.2 H (units (unknown) date) (1.7-4.1) g/dL unknown) (unknown) (no (unknown) (unknown) Glucose (70-100) (units (unknown) date) mg/dL unknown) (unknown) (no (unknown) (unknown) Glucose 130 H (units ( unknown) date) (70-100) mg/dL unknown) (unknown) (no (unknown) (unknown) HPI - General (units ( unknown) date) Adult unknown) (unknown) (no (unknown) (unknown) Hct (36-46) % (units ( unknown) date) unknown) (unknown) (no (unknown) (unknown) Hct 32.0 L (units (unk nown) date) (36-46) % unknown) (unknown) (no (unknown) (unknown) Hgb (12.0-16.0) (units (unknown) date) g/dL unknown) (unknown) (no (unknown) (unknown) Hgb 10.6 L (units (unk nown) date) (12.0-16.0) g/dL unknown) (unknown) (no (unknown) (unknown) 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) (unknown) (no (unknown) (unknown) 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 (unknown) (no (unknown) (unknown) Initial Vital (units ( unknown) date) Signs unknown) (unknown) (no (unknown) (unknown) Initial Vital (units ( unknown) date) Signs: unknown) (unknown) (no (unknown) (unknown) [facility] (units (unknown) date) [address] unknown) [place] [address] (unknown) (no (unknown) (unknown) Lab Data (units (unkno wn) date) unknown) (unknown) (no (unknown) (unknown) Lab Results (units (un known) date) unknown) (unknown) (no (unknown) (unknown) Labs: (units (unkno wn) date) unknown) (unknown) (no (unknown) (unknown) Lactate (units (unkno wn) date) (0.7-2.1) mmol/L unknown) (unknown) (no (unknown) (unknown) Lactate (Lactic (units (unknown) date) Acid) Stat unknown) (unknown) (no (unknown) (unknown) Lactate 1.5 (units (un known) date) (0.7-2.1) mmol/L unknown) (unknown) (no (unknown) (unknown) Last Admin: (units (un known) date) 02/17/22 08:08 unknown) Dose: 40 meq (unknown) (no (unknown) (unknown) Last Infusion: (units (unknown) date) 02/17/22 08:10 unknown) Dose: 0 mls/hr (unknown) (no (unknown) (unknown) Lipase (23-300) (units (unknown) date) U/L unknown) (unknown) (no (unknown) (unknown) Lipase 33 (units (unkn own) date) (23-300) U/L unknown) (unknown) (no (unknown) (unknown) Lipase Stat (units (un known) date) unknown) (unknown) (no (unknown) (unknown) Lymph # (Auto) (units (unknown) date) ([id number]) /uL unknown) (unknown) (no (unknown) (unknown) Lymph # (Auto) (units (unknown) date) 900 L ([id number]) unknown) /uL (unknown) (no (unknown) (unknown) Lymph % (Auto) (units (unknown) date) (25-40) % unknown) (unknown) (no (unknown) (unknown) Lymph % (Auto) (units (unknown) date) 18.2 L (25-40) % unknown) (unknown) (no (unknown) (unknown) [id number] (units (unk nown) date) unknown) (unknown) (no (unknown) (unknown) MCH (26-34) PG (units (unknown) date) unknown) (unknown) (no (unknown) (unknown) MCH 28.1 (26-34) (units (unknown) date) PG unknown) (unknown) (no (unknown) (unknown) MCHC (30-36) % (units (unknown) date) unknown) (unknown) (no (unknown) (unknown) MCHC 32.9 (units (unkn own) date) (30-36) % unknown) (unknown) (no (unknown) (unknown) MCV (80-100) fL (units (unknown) date) unknown) (unknown) (no (unknown) (unknown) MCV 85.3 (units (unkno wn) date) (80-100) fL unknown) (unknown) (no (unknown) (unknown) Magnesium (units (unkn own) date) (1.6-2.3) mg/dL unknown) (unknown) (no (unknown) (unknown) Magnesium 2.1 (units ( unknown) date) (1.6-2.3) mg/dL unknown) (unknown) (no (unknown) (unknown) Magnesium Stat (units (unknown) date) unknown) (unknown) (no (unknown) (unknown) Medical Decision (units (unknown) date) Making unknown) (unknown) (no (unknown) (unknown) Medical History (units (unknown) date) (Reviewed unknown) 02/08/22 @ 16:42 by Asa Khan MD) (unknown) (no (unknown) (unknown) Medication (units (unk nown) date) Instructions unknown) Recorded (unknown) (no (unknown) (unknown) Miscellaneous,Do (units (unknown) date) MD roman [Primary unknown) Care Provider] (unknown) (no (unknown) (unknown) Mode of arrival: (units (unknown) date) Wheelchair unknown) (unknown) (no (unknown) (unknown) Butts # (Auto) (units ( unknown) date) (0-900) /uL unknown) (unknown) (no (unknown) (unknown) Butts # (Auto) (units ( unknown) date) 500 (0-900) /uL unknown) (unknown) (no (unknown) (unknown) Butts % (Auto) (units ( unknown) date) (3-14) % unknown) (unknown) (no (unknown) (unknown) Butts % (Auto) (units ( unknown) date) 10.3 (3-14) % unknown) (unknown) (no (unknown) (unknown) Neut # (Auto) (units ( unknown) date) (3556-6478) /uL unknown) (unknown) (no (unknown) (unknown) Neut # (Auto) (units ( unknown) date) 3400 ([id number]) unknown) /uL (unknown) (no (unknown) (unknown) Neut % (Auto) (units ( unknown) date) (50-75) % unknown) (unknown) (no (unknown) (unknown) Neut % (Auto) (units ( unknown) date) 70.3 (50-75) % unknown) (unknown) (no (unknown) (unknown) No Action (units (unkn own) date) unknown) (unknown) (no (unknown) (unknown) Olanzapine (units (unk nown) date) (Olanzapine Odt unknown) 10 Mg Tab) 20 mg PO NOW ONE (unknown) (no (unknown) (unknown) Ordered: (units (unkno wn) date) unknown) (unknown) (no (unknown) (unknown) Orders (units (unkno wn) date) unknown) (unknown) (no (unknown) (unknown) Oxygen Delivery (units (unknown) date) Method 02/17/22 unknown) 06:15 (unknown) (no (unknown) (unknown) Oxygen Delivery (units (unknown) date) Method Room Air unknown) Room Air (unknown) (no (unknown) (unknown) Oxygen Delivery (units (unknown) date) Method Room Air unknown) (unknown) (no (unknown) (unknown) Oxygen Delivery (units (unknown) date) Method unknown) (unknown) (no (unknown) (unknown) Patient History (units (unknown) date) unknown) (unknown) (no (unknown) (unknown) Patient: (units (unkno wn) date) Vanessa Mills unknown) B MR#: (unknown) (no (unknown) (unknown) Phosphorous Stat (units (unknown) date) unknown) (unknown) (no (unknown) (unknown) Phosphorus (units (unk nown) date) (2.5-4.5) mg/dL unknown) (unknown) (no (unknown) (unknown) Phosphorus 4.8 H (units (unknown) date) (2.5-4.5) mg/dL unknown) (unknown) (no (unknown) (unknown) Plt Count (units (unkn own) date) (150-400) X103/uL unknown) (unknown) (no (unknown) (unknown) Plt Count 99 L (units (unknown) date) (150-400) X103/uL unknown) (unknown) (no (unknown) (unknown) Potassium (units (unkn own) date) (3.4-5.1) mmol/L unknown) (unknown) (no (unknown) (unknown) Potassium 2.8 L (units (unknown) date) (3.4-5.1) mmol/L unknown) (unknown) (no (unknown) (unknown) Potassium (units (unkn own) date) Chloride unknown) (Potassium Chloride 20 Meq Tab) 40 meq PO NOW ONE (unknown) (no (unknown) (unknown) Test (units (unknown) date) Serum,Qual Stat unknown) (unknown) (no (unknown) (unknown) Prescriptions: (units (unknown) date) unknown) (unknown) (no (unknown) (unknown) Previous Rx's (units ( unknown) date) unknown) (unknown) (no (unknown) (unknown) Procalcitonin (units ( unknown) date) (<0.5) ng/mL unknown) (unknown) (no (unknown) (unknown) Procalcitonin (units ( unknown) date) 0.08 (<0.5) ng/mL unknown) (unknown) (no (unknown) (unknown) Procalcitonin (units ( unknown) date) Stat unknown) (unknown) (no (unknown) (unknown) Pulse Oximetry (units (unknown) date) 100 100 100 unknown) (unknown) (no (unknown) (unknown) Pulse Oximetry (units (unknown) date) 100 100 unknown) (unknown) (no (unknown) (unknown) Pulse Oximetry (units (unknown) date) 100 02/17/22 unknown) 06:15 (unknown) (no (unknown) (unknown) Pulse Oximetry (units (unknown) date) 100 99 unknown) (unknown) (no (unknown) (unknown) Pulse Oximetry (units (unknown) date) 100 unknown) (unknown) (no (unknown) (unknown) Pulse Oximetry (units (unknown) date) 98 99 unknown) (unknown) (no (unknown) (unknown) Pulse Oximetry (units (unknown) date) 98 unknown) (unknown) (no (unknown) (unknown) Pulse Oximetry (units (unknown) date) 99 99 unknown) (unknown) (no (unknown) (unknown) Pulse Oximetry (units (unknown) date) 99 unknown) (unknown) (no (unknown) (unknown) Pulse Rate 107 H (units (unknown) date) 105 H 112 H unknown) (unknown) (no (unknown) (unknown) Pulse Rate 107 H (units (unknown) date) 02/17/22 06:15 unknown) (unknown) (no (unknown) (unknown) Pulse Rate 108 H (units (unknown) date) 99 H unknown) (unknown) (no (unknown) (unknown) Pulse Rate 85 (units ( unknown) date) unknown) (unknown) (no (unknown) (unknown) Pulse Rate 86 85 (units (unknown) date) unknown) (unknown) (no (unknown) (unknown) Pulse Rate 86 (units ( unknown) date) unknown) (unknown) (no (unknown) (unknown) Pulse Rate 89 89 (units (unknown) date) unknown) (unknown) (no (unknown) (unknown) Pulse Rate 89 (units ( unknown) date) unknown) (unknown) (no (unknown) (unknown) Pulse Rate 91 H (units (unknown) date) 103 H unknown) (unknown) (no (unknown) (unknown) Pulse Rate 92 H (units (unknown) date) 90 unknown) (unknown) (no (unknown) (unknown) Pulse Rate 95 H (units (unknown) date) unknown) (unknown) (no (unknown) (unknown) Pulse Rate 97 H (units (unknown) date) 91 H unknown) (unknown) (no (unknown) (unknown) Pulse Rate 97 H (units (unknown) date) unknown) (unknown) (no (unknown) (unknown) RBC (4.0-5.2) (units ( unknown) date) X106/uL unknown) (unknown) (no (unknown) (unknown) RBC 3.75 L (units (unk nown) date) (4.0-5.2) X106/uL unknown) (unknown) (no (unknown) (unknown) RDW (11.6-14.8) (units (unknown) date) % unknown) (unknown) (no (unknown) (unknown) RDW 15.2 H (units (unk nown) date) (11.6-14.8) % unknown) (unknown) (no (unknown) (unknown) Referrals: (units (unk nown) date) unknown) (unknown) (no (unknown) (unknown) Related Data (units (u nknown) date) unknown) (unknown) (no (unknown) (unknown) Respiratory Rate (units (unknown) date) 18 02/17/22 06:15 unknown) (unknown) (no (unknown) (unknown) Respiratory Rate (units (unknown) date) 18 unknown) (unknown) (no (unknown) (unknown) Respiratory Rate (units (unknown) date) unknown) (unknown) (no (unknown) (unknown) Result diagrams: (units (unknown) date) unknown) (unknown) (no (unknown) (unknown) Salicylate Stat (units (unknown) date) unknown) (unknown) (no (unknown) (unknown) Salicylates < (units ( unknown) date) 1.0 (<20) mg/dL unknown) (unknown) (no (unknown) (unknown) Salicylates (units (un known) date) (<20) mg/dL unknown) (unknown) (no (unknown) (unknown) Schizophrenia (units ( unknown) date) unknown) (unknown) (no (unknown) (unknown) Serum , (units (unknown) date) Qual (Negative) unknown) (unknown) (no (unknown) (unknown) Serum , (units (unknown) date) Qual Negative unknown) (Negative) (unknown) (no (unknown) (unknown) Signed By: (units (unk nown) date) unknown) (unknown) (no (unknown) (unknown) Smoking Status: (units (unknown) date) Never smoker unknown) (unknown) (no (unknown) (unknown) Social History (units (unknown) date) unknown) (unknown) (no (unknown) (unknown) Sodium (137-145) (units (unknown) date) mmol/L unknown) (unknown) (no (unknown) (unknown) Sodium 136 L (units (u nknown) date) (137-145) mmol/L unknown) (unknown) (no (unknown) (unknown) Sodium Chloride (units (unknown) date) (Normal Saline unknown) 0.9%) 1,000 mls @ 1,000 mls/hr IV BOLUS ONE (unknown) (no (unknown) (unknown) Source: patient, (units (unknown) date) family and old unknown) records reviewed (unknown) (no (unknown) (unknown) Stated (units (unkno wn) date) complaint: hasnt unknown) eaten in 6 days (unknown) (no (unknown) (unknown) Stop: 02/17/22 (units (unknown) date) 07:31 unknown) (unknown) (no (unknown) (unknown) Stop: 02/17/22 (units (unknown) date) 07:53 unknown) (unknown) (no (unknown) (unknown) Stop: 02/17/22 (units (unknown) date) 08:47 unknown) (unknown) (no (unknown) (unknown) Stop: 02/17/22 (units (unknown) date) 09:45 unknown) (unknown) (no (unknown) (unknown) Substance Use (units ( unknown) date) Type: does not unknown) use (unknown) (no (unknown) (unknown) TSH (0.47-4.68) (units (unknown) date) uIU/mL unknown) (unknown) (no (unknown) (unknown) TSH 3.58 (units (unkno wn) date) (0.47-4.68) unknown) uIU/mL (unknown) (no (unknown) (unknown) Temperature 99.2 (units (unknown) date) F 02/17/22 06:15 unknown) (unknown) (no (unknown) (unknown) Temperature 99.2 (units (unknown) date) F unknown) (unknown) (no (unknown) (unknown) Temperature (units (un known) date) unknown) (unknown) (no (unknown) (unknown) Thyroid (units (unkno wn) date) Stimulating unknown) Hormone Stat (unknown) (no (unknown) (unknown) Time Seen by (units (u nknown) date) Provider: unknown) 02/17/22 06:17 (unknown) (no (unknown) (unknown) Total Bilirubin (units (unknown) date) (0.2-1.3) mg/dL unknown) (unknown) (no (unknown) (unknown) Total Bilirubin (units (unknown) date) 0.5 (0.2-1.3) unknown) mg/dL (unknown) (no (unknown) (unknown) Total Protein (units ( unknown) date) (6.3-8.2) g/dL unknown) (unknown) (no (unknown) (unknown) Total Protein (units ( unknown) date) 7.8 (6.3-8.2) unknown) g/dL (unknown) (no (unknown) (unknown) Urinalysis and (units (unknown) date) Microscopic Stat unknown) (unknown) (no (unknown) (unknown) Urine Drug (units (unk nown) date) Screen, Rapid unknown) Stat (unknown) (no (unknown) (unknown) Vital Signs - 8 (units (unknown) date) hr unknown) (unknown) (no (unknown) (unknown) Vital Signs (units (un known) date) unknown) (unknown) (no (unknown) (unknown) Vital signs: (units (u nknown) date) unknown) (unknown) (no (unknown) (unknown) WBC (4.5-11.0) (units (unknown) date) X103/uL unknown) (unknown) (no (unknown) (unknown) WBC 4.8 (units (unkno wn) date) (4.5-11.0) unknown) X103/uL (unknown) (no (unknown) (unknown) [Embedded Image (units (unknown) date) Not Available] unknown) (unknown) (no (unknown) (unknown) amoxicillin 875 (units (unknown) date) mg-potassium 1 unknown) tab PO Q12H #10 tabs 02/11/22 (unknown) (no (unknown) (unknown) amoxicillin-pot (units (unknown) date) clavulanate unknown) 875-125 mg tablet (unknown) (no (unknown) (unknown) clavulanate 125 (units (unknown) date) mg tablet unknown) (unknown) (no (unknown) (unknown) household (units (unkn own) date) members: family unknown) (unknown) (no (unknown) (unknown) mirtazapine (units (un known) date) AdvReac unknown) Intermediate Rash severe Verified 01/30/22 06:52 (unknown) (no (unknown) (unknown) mupirocin 2 % (units ( unknown) date) Ointment unknown) (unknown) (no (unknown) (unknown) mupirocin 2 % (units ( unknown) date) topical ointment unknown) 1 applic topical BID #45 grams 02/11/22 (unknown) (no (unknown) (unknown) olanzapine 10 mg (units (unknown) date) disintegrating 20 unknown) mg PO BEDTIME #60 tabs 02/11/22 (unknown) (no (unknown) (unknown) olanzapine (units (unk nown) date) [Zyprexa Zydis] unknown) 10 mg Tablet,Disintegra ting (unknown) (no (unknown) (unknown) tablet (Zyprexa (units (unknown) date) Zydis) unknown) Result panel 531 (unknown) (no (unknown) (unknown) (no value) (units (unk nown) date) unknown) (unknown) (no (unknown) (unknown) 06:15 02/17/22 (units (unknown) date) unknown) (unknown) (no (unknown) (unknown) 06:25 02/17/22 (units (unknown) date) unknown) (unknown) (no (unknown) (unknown) 06:30 (units (unkno wn) date) unknown) (unknown) (no (unknown) (unknown) 06:55 06:55 06:55 (units (unknown) date) unknown) (unknown) (no (unknown) (unknown) 07:00 02/17/22 (units (unknown) date) unknown) (unknown) (no (unknown) (unknown) 07:07 02/17/22 (units (unknown) date) unknown) (unknown) (no (unknown) (unknown) 07:07 (units (unkno wn) date) unknown) (unknown) (no (unknown) (unknown) 07:10 02/17/22 (units (unknown) date) unknown) (unknown) (no (unknown) (unknown) 07:15 02/17/22 (units (unknown) date) unknown) (unknown) (no (unknown) (unknown) 07:15 (units (unkno wn) date) unknown) (unknown) (no (unknown) (unknown) 07:20 02/17/22 (units (unknown) date) unknown) (unknown) (no (unknown) (unknown) 07:20 (units (unkno wn) date) unknown) (unknown) (no (unknown) (unknown) 07:25 02/17/22 (units (unknown) date) unknown) (unknown) (no (unknown) (unknown) 07:30 02/17/22 (units (unknown) date) unknown) (unknown) (no (unknown) (unknown) 07:30 (units (unkno wn) date) unknown) (unknown) (no (unknown) (unknown) 07:35 02/17/22 (units (unknown) date) unknown) (unknown) (no (unknown) (unknown) 07:35 (units (unkno wn) date) unknown) (unknown) (no (unknown) (unknown) 07:40 02/17/22 (units (unknown) date) unknown) (unknown) (no (unknown) (unknown) 07:45 02/17/22 (units (unknown) date) unknown) (unknown) (no (unknown) (unknown) 07:45 (units (unkno wn) date) unknown) (unknown) (no (unknown) (unknown) 07:50 02/17/22 (units (unknown) date) unknown) (unknown) (no (unknown) (unknown) 07:50 (units (unkno wn) date) unknown) (unknown) (no (unknown) (unknown) 07:55 02/17/22 (units (unknown) date) unknown) (unknown) (no (unknown) (unknown) 08:00 02/17/22 (units (unknown) date) unknown) (unknown) (no (unknown) (unknown) 08:00 (units (unkno wn) date) unknown) (unknown) (no (unknown) (unknown) 08:05 02/17/22 (units (unknown) date) unknown) (unknown) (no (unknown) (unknown) 08:05 (units (unkno wn) date) unknown) (unknown) (no (unknown) (unknown) 08:10 02/17/22 (units (unknown) date) unknown) (unknown) (no (unknown) (unknown) 08:20 02/17/22 (units (unknown) date) unknown) (unknown) (no (unknown) (unknown) 08:20 (units (unkno wn) date) unknown) (unknown) (no (unknown) (unknown) 08:26 02/17/22 (units (unknown) date) unknown) (unknown) (no (unknown) (unknown) 08:26 (units (unkno wn) date) unknown) (unknown) (no (unknown) (unknown) 08:30 (units (unkno wn) date) unknown) (unknown) (no (unknown) (unknown) 1 applic topical (units (unknown) date) BID Qty: 45 0RF unknown) (unknown) (no (unknown) (unknown) 1 tab PO Q12H Qty: (units (unknown) date) 10 0RF unknown) (unknown) (no (unknown) (unknown) 02/17/22 06:33 (units (unknown) date) unknown) (unknown) (no (unknown) (unknown) 02/17/22 06:34 (units (unknown) date) unknown) (unknown) (no (unknown) (unknown) 02/17/22 06:55 (units (unknown) date) unknown) (unknown) (no (unknown) (unknown) 02/17/22 08:34 (units (unknown) date) unknown) (unknown) (no (unknown) (unknown) 02/17/22 02/17/22 (units (unknown) date) 02/17/22 Range/Units unknown) (unknown) (no (unknown) (unknown) 02/17/22 (units (unkno wn) date) unknown) (unknown) (no (unknown) (unknown) 20 mg PO BEDTIME (units (unknown) date) Qty: 60 0RF unknown) (unknown) (no (unknown) (unknown) 29, chloride 97, (units (unknown) date) BUN 4 with a unknown) creatinine 0.61 not showing any renal dysfunction (unknown) (no (unknown) (unknown) ABD:bowel sounds (units (unknown) date) normal, soft, unknown) non-tender, no guarding, rebound, rigidity, no (unknown) (no (unknown) (unknown) ALT (<35) IU/L (units (unknown) date) unknown) (unknown) (no (unknown) (unknown) ALT 33 (<35) IU/L (units (unknown) date) unknown) (unknown) (no (unknown) (unknown) AST (14-36) IU/L (units (unknown) date) unknown) (unknown) (no (unknown) (unknown) AST 64 H (14-36) (units (unknown) date) IU/L unknown) (unknown) (no (unknown) (unknown) Acetaminophen < 10 (units (unknown) date) (10-30) ug/mL unknown) (unknown) (no (unknown) (unknown) Acetaminophen (units ( unknown) date) (10-30) ug/mL unknown) (unknown) (no (unknown) (unknown) Acetaminophen Stat (units (unknown) date) unknown) (unknown) (no (unknown) (unknown) Admin: 02/17/22 (units (unknown) date) 07:03 Dose: 1,000 unknown) mls/hr (unknown) (no (unknown) (unknown) Age/Sex: 31 / F (units (unknown) date) unknown) (unknown) (no (unknown) (unknown) Albumin (3.5-5.0) (units (unknown) date) g/dL unknown) (unknown) (no (unknown) (unknown) Albumin 3.6 (units (un known) date) (3.5-5.0) g/dL unknown) (unknown) (no (unknown) (unknown) Albumin/Globulin (units (unknown) date) Ratio (1.0-2.8) unknown) (unknown) (no (unknown) (unknown) Albumin/Globulin (units (unknown) date) Ratio 0.9 L unknown) (1.0-2.8) (unknown) (no (unknown) (unknown) Alkaline (units (unkno wn) date) Phosphatase (38-126) unknown) U/L (unknown) (no (unknown) (unknown) Alkaline (units (unkno wn) date) Phosphatase 55 unknown) (38-126) U/L (unknown) (no (unknown) (unknown) Allergies (units (unkn own) date) unknown) (unknown) (no (unknown) (unknown) Allergy/AdvReac (units (unknown) date) Type Severity unknown) Reaction Status Date / Time (unknown) (no (unknown) (unknown) BUN (7-17) mg/dL (units (unknown) date) unknown) (unknown) (no (unknown) (unknown) BUN 4 L (7-17) (units (unknown) date) mg/dL unknown) (unknown) (no (unknown) (unknown) BUN/Creatinine (units (unknown) date) Ratio (6-22) unknown) (unknown) (no (unknown) (unknown) BUN/Creatinine (units (unknown) date) Ratio 6.6 (6-22) unknown) (unknown) (no (unknown) (unknown) Baso # (Auto) (units ( unknown) date) (0-100) /uL unknown) (unknown) (no (unknown) (unknown) Baso # (Auto) 100 (units (unknown) date) (0-100) /uL unknown) (unknown) (no (unknown) (unknown) Baso % (Auto) (0-2) (unit s (unknown) date) % unknown) (unknown) (no (unknown) (unknown) Baso % (Auto) 1.2 (units (unknown) date) (0-2) % unknown) (unknown) (no (unknown) (unknown) Blood Pressure (units (unknown) date) 100/51 L unknown) (unknown) (no (unknown) (unknown) Blood Pressure (units (unknown) date) 100/55 L unknown) (unknown) (no (unknown) (unknown) Blood Pressure (units (unknown) date) 101/50 L 101/54 L unknown) (unknown) (no (unknown) (unknown) Blood Pressure (units (unknown) date) 101/52 L 106/51 L unknown) (unknown) (no (unknown) (unknown) Blood Pressure (units (unknown) date) 101/52 L unknown) (unknown) (no (unknown) (unknown) Blood Pressure (units (unknown) date) 101/56 L 108/55 L unknown) (unknown) (no (unknown) (unknown) Blood Pressure (units (unknown) date) 102/50 L 107/55 L unknown) (unknown) (no (unknown) (unknown) Blood Pressure (units (unknown) date) 105/54 L 102/53 L unknown) (unknown) (no (unknown) (unknown) Blood Pressure (units (unknown) date) 108/53 L unknown) (unknown) (no (unknown) (unknown) Blood Pressure (units (unknown) date) 82/52 L 02/17/22 unknown) 06:15 (unknown) (no (unknown) (unknown) Blood Pressure (units (unknown) date) 82/52 L unknown) (unknown) (no (unknown) (unknown) Blood Pressure (units (unknown) date) 91/50 L unknown) (unknown) (no (unknown) (unknown) Blood Pressure (units (unknown) date) 99/58 L unknown) (unknown) (no (unknown) (unknown) Blood Pressure (units (unknown) date) unknown) (unknown) (no (unknown) (unknown) Calcium (8.4-10.2) (units (unknown) date) mg/dL unknown) (unknown) (no (unknown) (unknown) Calcium 8.5 (units (un known) date) (8.4-10.2) mg/dL unknown) (unknown) (no (unknown) (unknown) Carbon Dioxide (units (unknown) date) (22-32) mmol/L unknown) (unknown) (no (unknown) (unknown) Carbon Dioxide 29 (units (unknown) date) (22-32) mmol/L unknown) (unknown) (no (unknown) (unknown) Chief complaint: (units (unknown) date) Weakness unknown) (unknown) (no (unknown) (unknown) Chloride (98-107) (units (unknown) date) mmol/L unknown) (unknown) (no (unknown) (unknown) Chloride 97 L (units ( unknown) date) (98-107) mmol/L unknown) (unknown) (no (unknown) (unknown) Clinical (units (unkno wn) date) Impression: unknown) (unknown) (no (unknown) (unknown) Complete Blood (units (unknown) date) Count AUTO DIFF Stat unknown) (unknown) (no (unknown) (unknown) Comprehensive (units ( unknown) date) Metabolic Panel Stat unknown) (unknown) (no (unknown) (unknown) Consult to [facility] [place] - (units (unknown) date) Community Engagement Manager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 posteriorly. (unknown) (no (unknown) (unknown) otherwise normal (units (unknown) date) LFTs, TSH and serum unknown) is negative. Patient is anemic (unknown) (no (unknown) (unknown) patient's (units (unkn own) date) obsessive-compulsive unknown) activities and possible viral pneumonia. She was (unknown) (no (unknown) (unknown) placement as well (units (unknown) date) as lower shins. No unknown) significant abrasions or ecchymosis or (unknown) (no (unknown) (unknown) placement their (units (unknown) date) main concern today unknown) is getting her to eat and drink more (unknown) (no (unknown) (unknown) posterior scalp top (unit s (unknown) date) of her scalp and unknown) abrasions no deep wounds passed the (unknown) (no (unknown) (unknown) psychiatric (units (un known) date) hospitalization unknown) quite some time ago but more for aggressive hitting (unknown) (no (unknown) (unknown) pulses are equal in (unit s (unknown) date) upper and lower unknown) extremities (unknown) (no (unknown) (unknown) recently for sepsis (unit s (unknown) date) and infection, unknown) parents state her wounds or significantly (unknown) (no (unknown) (unknown) seeing a (units (unkno wn) date) psychiatrist but unknown) they left she is on Zyprexa, Prozac and amoxicillin (unknown) (no (unknown) (unknown) she has not been (units (unknown) date) eating for the past unknown) 6 days she has been taking some liquids. (unknown) (no (unknown) (unknown) some small areas of (unit s (unknown) date) ecchymosis on her unknown) wrist and consistent with prior IV (unknown) (no (unknown) (unknown) superficial skin (units (unknown) date) layer. Patient's unknown) chin the most superficial layer of skin has (unknown) (no (unknown) (unknown) symmetrically (units ( unknown) date) unknown) (unknown) (no (unknown) (unknown) tablet (Zyprexa (units (unknown) date) Zydis) unknown) (unknown) (no (unknown) (unknown) that she was (units (u nknown) date) drinking adequate unknown) fluids but not taking food during her (unknown) (no (unknown) (unknown) today, phosphorus (units (unknown) date) is 4.8 with a unknown) glucose of 130 lactate normal at 1.5 with (unknown) (no (unknown) (unknown) typical. They have (units (unknown) date) not appreciated unknown) redness or swelling. No other new (unknown) (no (unknown) (unknown) when she is taking (units (unknown) date) her medications more unknown) consistently. Discharge no also notes (unknown) (no (unknown) (unknown) white count is 4.8 (units (unknown) date) with platelets of 99 unknown) no leftward shift or bandemia. (unknown) (no (unknown) (unknown) will sort of follow (unit s (unknown) date) commands. Patient unknown) parents state that she has been doing (unknown) (no (unknown) (unknown) with a hemoglobin (units (unknown) date) of 10 which appears unknown) similar to her earlier stay this month, Result panel 532 (unknown) (no date) (unknown) (unknown) <=1.005 (units (unkn own) unknown) (unknown) (no date) (unknown) (unknown) 0.2 e.u./dl (unkn own) (unknown) (no date) (unknown) (unknown) 7.0 (units (unkn own) unknown) (unknown) (no date) (unknown) (unknown) CLEAR (units (unkn own) unknown) (unknown) (no date) (unknown) (unknown) NEGATIVE (units (unkn own) unknown) (unknown) (no date) (unknown) (unknown) NEGATIVE g/dl (unkn own) (unknown) (no date) (unknown) (unknown) Negative (units (unkn own) unknown) (unknown) (no date) (unknown) (unknown) Normal (units (unkn own) unknown) (unknown) (no date) (unknown) (unknown) STRAW (units (unkn own) unknown) (unknown) (no date) (unknown) (unknown) STRAW (units (unkn own) unknown) Result panel 533 (unknown) (no date) (unknown) (unknown) <=1.005 (units (unkn own) unknown) (unknown) (no date) (unknown) (unknown) 0-1 /HPF (units (unkn own) unknown) (unknown) (no date) (unknown) (unknown) 0-1/HPF (units (unkn own) unknown) (unknown) (no date) (unknown) (unknown) 0.2 e.u./dl (unkn own) (unknown) (no date) (unknown) (unknown) 7.0 (units (unkn own) unknown) (unknown) (no date) (unknown) (unknown) CLEAR (units (unkn own) unknown) (unknown) (no date) (unknown) (unknown) Cult Not (units (unkn own) Indicated unknown) (unknown) (no date) (unknown) (unknown) NEGATIVE (units (unkn own) unknown) (unknown) (no date) (unknown) (unknown) NEGATIVE g/dl (unkn own) (unknown) (no date) (unknown) (unknown) None Seen (units (unk nown) unknown) (unknown) (no date) (unknown) (unknown) Occasional (units (un known) (0-1) unknown) (unknown) (no date) (unknown) (unknown) STRAW (units (unkn own) unknown) (unknown) (no date) (unknown) (unknown) STRAW (units (unkn own) unknown) Result panel 534 (unknown) (no (unknown) (unknown) (no value) (units (unk nown) date) unknown) (unknown) (no (unknown) (unknown) 06:15 02/17/22 (units (unknown) date) unknown) (unknown) (no (unknown) (unknown) 06:25 02/17/22 (units (unknown) date) unknown) (unknown) (no (unknown) (unknown) 06:30 (units (unkno wn) date) unknown) (unknown) (no (unknown) (unknown) 06:55 06:55 06:55 (units (unknown) date) unknown) (unknown) (no (unknown) (unknown) 07:00 02/17/22 (units (unknown) date) unknown) (unknown) (no (unknown) (unknown) 07:07 02/17/22 (units (unknown) date) unknown) (unknown) (no (unknown) (unknown) 07:07 (units (unkno wn) date) unknown) (unknown) (no (unknown) (unknown) 07:10 02/17/22 (units (unknown) date) unknown) (unknown) (no (unknown) (unknown) 07:15 02/17/22 (units (unknown) date) unknown) (unknown) (no (unknown) (unknown) 07:15 (units (unkno wn) date) unknown) (unknown) (no (unknown) (unknown) 07:20 02/17/22 (units (unknown) date) unknown) (unknown) (no (unknown) (unknown) 07:20 (units (unkno wn) date) unknown) (unknown) (no (unknown) (unknown) 07:25 02/17/22 (units (unknown) date) unknown) (unknown) (no (unknown) (unknown) 07:30 02/17/22 (units (unknown) date) unknown) (unknown) (no (unknown) (unknown) 07:30 (units (unkno wn) date) unknown) (unknown) (no (unknown) (unknown) 07:35 02/17/22 (units (unknown) date) unknown) (unknown) (no (unknown) (unknown) 07:35 (units (unkno wn) date) unknown) (unknown) (no (unknown) (unknown) 07:40 02/17/22 (units (unknown) date) unknown) (unknown) (no (unknown) (unknown) 07:45 02/17/22 (units (unknown) date) unknown) (unknown) (no (unknown) (unknown) 07:45 (units (unkno wn) date) unknown) (unknown) (no (unknown) (unknown) 07:50 02/17/22 (units (unknown) date) unknown) (unknown) (no (unknown) (unknown) 07:50 (units (unkno wn) date) unknown) (unknown) (no (unknown) (unknown) 07:55 02/17/22 (units (unknown) date) unknown) (unknown) (no (unknown) (unknown) 08:00 02/17/22 (units (unknown) date) unknown) (unknown) (no (unknown) (unknown) 08:00 (units (unkno wn) date) unknown) (unknown) (no (unknown) (unknown) 08:05 02/17/22 (units (unknown) date) unknown) (unknown) (no (unknown) (unknown) 08:05 (units (unkno wn) date) unknown) (unknown) (no (unknown) (unknown) 08:10 02/17/22 (units (unknown) date) unknown) (unknown) (no (unknown) (unknown) 08:20 02/17/22 (units (unknown) date) unknown) (unknown) (no (unknown) (unknown) 08:20 (units (unkno wn) date) unknown) (unknown) (no (unknown) (unknown) 08:26 02/17/22 (units (unknown) date) unknown) (unknown) (no (unknown) (unknown) 08:26 (units (unkno wn) date) unknown) (unknown) (no (unknown) (unknown) 08:30 (units (unkno wn) date) unknown) (unknown) (no (unknown) (unknown) 09:11 09:11 (units (un known) date) unknown) (unknown) (no (unknown) (unknown) 1 applic topical (units (unknown) date) BID Qty: 45 0RF unknown) (unknown) (no (unknown) (unknown) 1 tab PO Q12H Qty: (units (unknown) date) 10 0RF unknown) (unknown) (no (unknown) (unknown) 02/17/22 06:34 (units (unknown) date) unknown) (unknown) (no (unknown) (unknown) 02/17/22 06:55 (units (unknown) date) unknown) (unknown) (no (unknown) (unknown) 02/17/22 08:34 (units (unknown) date) unknown) (unknown) (no (unknown) (unknown) 02/17/22 09:11 (units (unknown) date) unknown) (unknown) (no (unknown) (unknown) 02/17/22 02/17/22 (units (unknown) date) 02/17/22 Range/Units unknown) (unknown) (no (unknown) (unknown) 02/17/22 02/17/22 (units (unknown) date) Range/Units unknown) (unknown) (no (unknown) (unknown) 02/17/22 (units (unkno wn) date) unknown) (unknown) (no (unknown) (unknown) 20 mg PO BEDTIME (units (unknown) date) Qty: 60 0RF unknown) (unknown) (no (unknown) (unknown) 29, chloride 97, (units (unknown) date) BUN 4 with a unknown) creatinine 0.61 not showing any renal dysfunction (unknown) (no (unknown) (unknown) ABD:bowel sounds (units (unknown) date) normal, soft, unknown) non-tender, no guarding, rebound, rigidity, no (unknown) (no (unknown) (unknown) ALT (<35) IU/L (units (unknown) date) unknown) (unknown) (no (unknown) (unknown) ALT 33 (<35) IU/L (units (unknown) date) unknown) (unknown) (no (unknown) (unknown) AST (14-36) IU/L (units (unknown) date) unknown) (unknown) (no (unknown) (unknown) AST 64 H (14-36) (units (unknown) date) IU/L unknown) (unknown) (no (unknown) (unknown) Acetaminophen < 10 (units (unknown) date) (10-30) ug/mL unknown) (unknown) (no (unknown) (unknown) Acetaminophen (units ( unknown) date) (10-30) ug/mL unknown) (unknown) (no (unknown) (unknown) Acetaminophen Stat (units (unknown) date) unknown) (unknown) (no (unknown) (unknown) Admin: 02/17/22 (units (unknown) date) 07:03 Dose: 1,000 unknown) mls/hr (unknown) (no (unknown) (unknown) Age/Sex: 31 / F (units (unknown) date) unknown) (unknown) (no (unknown) (unknown) Albumin (3.5-5.0) (units (unknown) date) g/dL unknown) (unknown) (no (unknown) (unknown) Albumin 3.6 (units (un known) date) (3.5-5.0) g/dL unknown) (unknown) (no (unknown) (unknown) Albumin/Globulin (units (unknown) date) Ratio (1.0-2.8) unknown) (unknown) (no (unknown) (unknown) Albumin/Globulin (units (unknown) date) Ratio 0.9 L unknown) (1.0-2.8) (unknown) (no (unknown) (unknown) Alkaline (units (unkno wn) date) Phosphatase (38-126) unknown) U/L (unknown) (no (unknown) (unknown) Alkaline (units (unkno wn) date) Phosphatase 55 unknown) (38-126) U/L (unknown) (no (unknown) (unknown) Allergies (units (unkn own) date) unknown) (unknown) (no (unknown) (unknown) Allergy/AdvReac (units (unknown) date) Type Severity unknown) Reaction Status Date / Time (unknown) (no (unknown) (unknown) BUN (7-17) mg/dL (units (unknown) date) unknown) (unknown) (no (unknown) (unknown) BUN 4 L (7-17) (units (unknown) date) mg/dL unknown) (unknown) (no (unknown) (unknown) BUN/Creatinine (units (unknown) date) Ratio (6-22) unknown) (unknown) (no (unknown) (unknown) BUN/Creatinine (units (unknown) date) Ratio 6.6 (6-22) unknown) (unknown) (no (unknown) (unknown) Baso # (Auto) (units ( unknown) date) (0-100) /uL unknown) (unknown) (no (unknown) (unknown) Baso # (Auto) 100 (units (unknown) date) (0-100) /uL unknown) (unknown) (no (unknown) (unknown) Baso % (Auto) (0-2) (unit s (unknown) date) % unknown) (unknown) (no (unknown) (unknown) Baso % (Auto) 1.2 (units (unknown) date) (0-2) % unknown) (unknown) (no (unknown) (unknown) Blood Pressure (units (unknown) date) 100/51 L unknown) (unknown) (no (unknown) (unknown) Blood Pressure (units (unknown) date) 100/55 L unknown) (unknown) (no (unknown) (unknown) Blood Pressure (units (unknown) date) 101/50 L 101/54 L unknown) (unknown) (no (unknown) (unknown) Blood Pressure (units (unknown) date) 101/52 L 106/51 L unknown) (unknown) (no (unknown) (unknown) Blood Pressure (units (unknown) date) 101/52 L unknown) (unknown) (no (unknown) (unknown) Blood Pressure (units (unknown) date) 101/56 L 108/55 L unknown) (unknown) (no (unknown) (unknown) Blood Pressure (units (unknown) date) 102/50 L 107/55 L unknown) (unknown) (no (unknown) (unknown) Blood Pressure (units (unknown) date) 105/54 L 102/53 L unknown) (unknown) (no (unknown) (unknown) Blood Pressure (units (unknown) date) 108/53 L unknown) (unknown) (no (unknown) (unknown) Blood Pressure (units (unknown) date) 82/52 L 02/17/22 unknown) 06:15 (unknown) (no (unknown) (unknown) Blood Pressure (units (unknown) date) 82/52 L unknown) (unknown) (no (unknown) (unknown) Blood Pressure (units (unknown) date) 91/50 L unknown) (unknown) (no (unknown) (unknown) Blood Pressure (units (unknown) date) 99/58 L unknown) (unknown) (no (unknown) (unknown) Blood Pressure (units (unknown) date) unknown) (unknown) (no (unknown) (unknown) Calcium (8.4-10.2) (units (unknown) date) mg/dL unknown) (unknown) (no (unknown) (unknown) Calcium 8.5 (units (un known) date) (8.4-10.2) mg/dL unknown) (unknown) (no (unknown) (unknown) Carbon Dioxide (units (unknown) date) (22-32) mmol/L unknown) (unknown) (no (unknown) (unknown) Carbon Dioxide 29 (units (unknown) date) (22-32) mmol/L unknown) (unknown) (no (unknown) (unknown) Chief complaint: (units (unknown) date) Weakness unknown) (unknown) (no (unknown) (unknown) Chloride (98-107) (units (unknown) date) mmol/L unknown) (unknown) (no (unknown) (unknown) Chloride 97 L (units ( unknown) date) (98-107) mmol/L unknown) (unknown) (no (unknown) (unknown) Clinical (units (unkno wn) date) Impression: unknown) (unknown) (no (unknown) (unknown) Complete Blood (units (unknown) date) Count AUTO DIFF Stat unknown) (unknown) (no (unknown) (unknown) Comprehensive (units ( unknown) date) Metabolic Panel Stat unknown) (unknown) (no (unknown) (unknown) Consult to FACE PAINTER - (units (unknown) date) Community Engagement Manager Stat unknown) (unknown) (no (unknown) (unknown) Course (units (unkno wn) date) unknown) (unknown) (no (unknown) (unknown) Creatinine (units (unk nown) date) (0.52-1.04) mg/dL unknown) (unknown) (no (unknown) (unknown) Creatinine 0.61 (units (unknown) date) (0.52-1.04) mg/dL unknown) (unknown) (no (unknown) (unknown) : 1990 (units (unknown) date) Acct:[id number] unknown) (unknown) (no (unknown) (unknown) Date of Service: (units (unknown) date) 02/17/22 unknown) (unknown) (no (unknown) (unknown) Departure (units (unkn own) date) unknown) (unknown) (no (unknown) (unknown) Diphenhydramine HCl (unit s (unknown) date) (Diphenhydramine 25 unknown) Mg Tablet) 25 mg PO NOW ONE (unknown) (no (unknown) (unknown) Discharge Plan (units (unknown) date) unknown) (unknown) (no (unknown) (unknown) Discontinued (units (u nknown) date) Medications unknown) (unknown) (no (unknown) (unknown) Documented By: AT (units (unknown) date) unknown) (unknown) (no (unknown) (unknown) Documented By: JACI (units (unknown) date) unknown) (unknown) (no (unknown) (unknown) Documented By: KB (units (unknown) date) unknown) (unknown) (no (unknown) (unknown) ED Orders (units (unkn own) date) unknown) (unknown) (no (unknown) (unknown) EKG-12 Lead Stat (units (unknown) date) unknown) (unknown) (no (unknown) (unknown) ER Physician: (units ( unknown) date) Margarita Pena D.O. unknown) (unknown) (no (unknown) (unknown) Emergency Report (units (unknown) date) unknown) (unknown) (no (unknown) (unknown) Eos # (Auto) (units (u nknown) date) (0-450) /uL unknown) (unknown) (no (unknown) (unknown) Eos # (Auto) 0 (units (unknown) date) (0-450) /uL unknown) (unknown) (no (unknown) (unknown) Eos % (Auto) (2-4) (units (unknown) date) % unknown) (unknown) (no (unknown) (unknown) Eos % (Auto) 0.0 L (units (unknown) date) (2-4) % unknown) (unknown) (no (unknown) (unknown) Estimated GFR > 60 (units (unknown) date) (>60) mL/min unknown) (unknown) (no (unknown) (unknown) Estimated GFR (>60) (unit s (unknown) date) mL/min unknown) (unknown) (no (unknown) (unknown) Ethanol (ETOH) Stat (unit s (unknown) date) unknown) (unknown) (no (unknown) (unknown) Ethyl Alcohol < 10 (units (unknown) date) ( - 10) mg/dL unknown) (unknown) (no (unknown) (unknown) Ethyl Alcohol ( - (units (unknown) date) 10) mg/dL unknown) (unknown) (no (unknown) (unknown) Exam Narrative: (units (unknown) date) unknown) (unknown) (no (unknown) (unknown) Exam (units (unkno wn) date) unknown) (unknown) (no (unknown) (unknown) GEN: Female in mild (unit s (unknown) date) distress, alert and unknown) oriented, patient appears to be in mild (unknown) (no (unknown) (unknown) GI or urinary (units ( unknown) date) symptoms. They note unknown) that she does tend to eat and drink better (unknown) (no (unknown) (unknown) :No CVA (units (unkn own) date) tenderness unknown) (unknown) (no (unknown) (unknown) General (units (unkno wn) date) unknown) (unknown) (no (unknown) (unknown) Globulin (1.7-4.1) (units (unknown) date) g/dL unknown) (unknown) (no (unknown) (unknown) Globulin 4.2 H (units (unknown) date) (1.7-4.1) g/dL unknown) (unknown) (no (unknown) (unknown) Glucose (70-100) (units (unknown) date) mg/dL unknown) (unknown) (no (unknown) (unknown) Glucose 130 H (units ( unknown) date) (70-100) mg/dL unknown) (unknown) (no (unknown) (unknown) HEART: Regular rate (unit s (unknown) date) and rhythm without unknown) murmur, clicks, rubs. No carotid bruits, (unknown) (no (unknown) (unknown) HEENT: Atraumatic, (units (unknown) date) pupils are equal unknown) round reactive to light, extraocular (unknown) (no (unknown) (unknown) HPI - General Adult (unit s (unknown) date) unknown) (unknown) (no (unknown) (unknown) HPI narrative: (units (unknown) date) unknown) (unknown) (no (unknown) (unknown) Hct (36-46) % (units ( unknown) date) unknown) (unknown) (no (unknown) (unknown) Hct 32.0 L (36-46) (units (unknown) date) % unknown) (unknown) (no (unknown) (unknown) Hgb (12.0-16.0) (units (unknown) date) g/dL unknown) (unknown) (no (unknown) (unknown) Hgb 10.6 L (units (unk nown) date) (12.0-16.0) g/dL unknown) (unknown) (no (unknown) (unknown) 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) (unknown) (no (unknown) (unknown) History of Present (units (unknown) date) Illness unknown) (unknown) (no (unknown) (unknown) History of (units (unk nown) date) pulmonary embolism unknown) (unknown) (no (unknown) (unknown) Initial Vital Signs (unit s (unknown) date) unknown) (unknown) (no (unknown) (unknown) Initial Vital (units ( unknown) date) Signs: unknown) (unknown) (no (unknown) (unknown) [facility] (units (unknown) date) [address] unknown) [place] [address] (unknown) (no (unknown) (unknown) LUNGS:Lungs clear (units (unknown) date) to auscultation, no unknown) wheezes, rales, crackles, chest moves (unknown) (no (unknown) (unknown) Lab Data (units (unkno wn) date) unknown) (unknown) (no (unknown) (unknown) Lab Results (units (un known) date) unknown) (unknown) (no (unknown) (unknown) Labs: (units (unkno wn) date) unknown) (unknown) (no (unknown) (unknown) Lactate (0.7-2.1) (units (unknown) date) mmol/L unknown) (unknown) (no (unknown) (unknown) Lactate (Lactic (units (unknown) date) Acid) Stat unknown) (unknown) (no (unknown) (unknown) Lactate 1.5 (units (un known) date) (0.7-2.1) mmol/L unknown) (unknown) (no (unknown) (unknown) Last Admin: (units (un known) date) 02/17/22 08:08 Dose: unknown) 40 meq (unknown) (no (unknown) (unknown) Last Admin: (units (un known) date) 02/17/22 09:01 Dose: unknown) 20 mg (unknown) (no (unknown) (unknown) Last Admin: (units (un known) date) 02/17/22 09:02 Dose: unknown) 25 mg (unknown) (no (unknown) (unknown) Last Admin: (units (un known) date) 02/17/22 09:02 Dose: unknown) 40 meq (unknown) (no (unknown) (unknown) Last Admin: (units (un known) date) 02/17/22 09:57 Dose: unknown) 1,000 mls/hr (unknown) (no (unknown) (unknown) Last Infusion: (units (unknown) date) 02/17/22 08:10 Dose: unknown) 0 mls/hr (unknown) (no (unknown) (unknown) Limitations: no (units (unknown) date) limitations unknown) (unknown) (no (unknown) (unknown) Lipase (23-300) U/L (unit s (unknown) date) unknown) (unknown) (no (unknown) (unknown) Lipase 33 (23-300) (units (unknown) date) U/L unknown) (unknown) (no (unknown) (unknown) Lipase Stat (units (un known) date) unknown) (unknown) (no (unknown) (unknown) Lymph # (Auto) (units (unknown) date) (4783-5298) /uL unknown) (unknown) (no (unknown) (unknown) Lymph # (Auto) 900 (units (unknown) date) L (8841-7073) /uL unknown) (unknown) (no (unknown) (unknown) Lymph % (Auto) (units (unknown) date) (25-40) % unknown) (unknown) (no (unknown) (unknown) Lymph % (Auto) 18.2 (unit s (unknown) date) L (25-40) % unknown) (unknown) (no (unknown) (unknown) [id number] (units (unk nown) date) unknown) (unknown) (no (unknown) (unknown) MCH (26-34) PG (units (unknown) date) unknown) (unknown) (no (unknown) (unknown) MCH 28.1 (26-34) PG (unit s (unknown) date) unknown) (unknown) (no (unknown) (unknown) MCHC (30-36) % (units (unknown) date) unknown) (unknown) (no (unknown) (unknown) MCHC 32.9 (30-36) % (unit s (unknown) date) unknown) (unknown) (no (unknown) (unknown) MCV (80-100) fL (units (unknown) date) unknown) (unknown) (no (unknown) (unknown) MCV 85.3 (80-100) (units (unknown) date) fL unknown) (unknown) (no (unknown) (unknown) MDM Narrative (units ( unknown) date) unknown) (unknown) (no (unknown) (unknown) MSCL: Non-tender, (units (unknown) date) no muscle atrophy, unknown) muscles strength 5/5 upper and lower (unknown) (no (unknown) (unknown) Magnesium (1.6-2.3) (unit s (unknown) date) mg/dL unknown) (unknown) (no (unknown) (unknown) Magnesium 2.1 (units ( unknown) date) (1.6-2.3) mg/dL unknown) (unknown) (no (unknown) (unknown) Magnesium Stat (units (unknown) date) unknown) (unknown) (no (unknown) (unknown) Medical Decision (units (unknown) date) Making unknown) (unknown) (no (unknown) (unknown) Medical History (units (unknown) date) (Reviewed 02/17/22 @ unknown) 08:54 by Margarita Pena DO) (unknown) (no (unknown) (unknown) Medical decision (units (unknown) date) making narrative: unknown) (unknown) (no (unknown) (unknown) Medication (units (unk nown) date) Instructions unknown) Recorded (unknown) (no (unknown) (unknown) Miscellaneous,[place] (unit s (unknown) date) MD bjorn [Primary Care unknown) Provider] (unknown) (no (unknown) (unknown) Mode of arrival: (units (unknown) date) Wheelchair unknown) (unknown) (no (unknown) (unknown) Butts # (Auto) (units ( unknown) date) (0-900) /uL unknown) (unknown) (no (unknown) (unknown) Butts # (Auto) 500 (units (unknown) date) (0-900) /uL unknown) (unknown) (no (unknown) (unknown) Butts % (Auto) (units ( unknown) date) (3-14) % unknown) (unknown) (no (unknown) (unknown) Butts % (Auto) 10.3 (units (unknown) date) (3-14) % unknown) (unknown) (no (unknown) (unknown) NEURO:CN 2-12 (units ( unknown) date) intact, sensation unknown) normal (unknown) (no (unknown) (unknown) Narrative (units (unkn own) date) unknown) (unknown) (no (unknown) (unknown) Neut # (Auto) (units ( unknown) date) (8382-0297) /uL unknown) (unknown) (no (unknown) (unknown) Neut # (Auto) 3400 (units (unknown) date) (8164-5820) /uL unknown) (unknown) (no (unknown) (unknown) Neut % (Auto) (units ( unknown) date) (50-75) % unknown) (unknown) (no (unknown) (unknown) Neut % (Auto) 70.3 (units (unknown) date) (50-75) % unknown) (unknown) (no (unknown) (unknown) No Action (units (unkn own) date) unknown) (unknown) (no (unknown) (unknown) Olanzapine (units (unk nown) date) (Olanzapine Odt 10 unknown) Mg Tab) 20 mg PO NOW ONE (unknown) (no (unknown) (unknown) Ordered: (units (unkno wn) date) unknown) (unknown) (no (unknown) (unknown) Orders (units (unkno wn) date) unknown) (unknown) (no (unknown) (unknown) Oxygen Delivery (units (unknown) date) Method 02/17/22 unknown) 06:15 (unknown) (no (unknown) (unknown) Oxygen Delivery (units (unknown) date) Method Room Air Room unknown) Air (unknown) (no (unknown) (unknown) Oxygen Delivery (units (unknown) date) Method Room Air unknown) (unknown) (no (unknown) (unknown) Oxygen Delivery (units (unknown) date) Method unknown) (unknown) (no (unknown) (unknown) PSYCH: (units (unkno wn) date) unknown) (unknown) (no (unknown) (unknown) Patient History (units (unknown) date) unknown) (unknown) (no (unknown) (unknown) Patient took oral (units (unknown) date) potassium here in unknown) the department was given additional dose, (unknown) (no (unknown) (unknown) Patient: (units (unkno wn) date) [place] unknown) MR#: (unknown) (no (unknown) (unknown) Phosphorous Stat (units (unknown) date) unknown) (unknown) (no (unknown) (unknown) Phosphorus (units (unk nown) date) (2.5-4.5) mg/dL unknown) (unknown) (no (unknown) (unknown) Phosphorus 4.8 H (units (unknown) date) (2.5-4.5) mg/dL unknown) (unknown) (no (unknown) (unknown) Plt Count (150-400) (unit s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 (unknown) (no (unknown) (unknown) 07:50 02/17/22 (units (unknown) date) unknown) (unknown) (no (unknown) (unknown) 07:50 (units (unkno wn) date) unknown) (unknown) (no (unknown) (unknown) 07:55 02/17/22 (units (unknown) date) unknown) (unknown) (no (unknown) (unknown) 08:00 02/17/22 (units (unknown) date) unknown) (unknown) (no (unknown) (unknown) 08:00 (units (unkno wn) date) unknown) (unknown) (no (unknown) (unknown) 08:05 02/17/22 (units (unknown) date) unknown) (unknown) (no (unknown) (unknown) 08:05 (units (unkno wn) date) unknown) (unknown) (no (unknown) (unknown) 08:10 02/17/22 (units (unknown) date) unknown) (unknown) (no (unknown) (unknown) 08:20 02/17/22 (units (unknown) date) unknown) (unknown) (no (unknown) (unknown) 08:20 (units (unkno wn) date) unknown) (unknown) (no (unknown) (unknown) 08:26 02/17/22 (units (unknown) date) unknown) (unknown) (no (unknown) (unknown) 08:26 (units (unkno wn) date) unknown) (unknown) (no (unknown) (unknown) 08:30 02/17/22 (units (unknown) date) unknown) (unknown) (no (unknown) (unknown) 09:11 09:11 (units (un known) date) unknown) (unknown) (no (unknown) (unknown) 1 applic topical (units (unknown) date) BID Qty: 45 0RF unknown) (unknown) (no (unknown) (unknown) 1 tab PO Q12H Qty: (units (unknown) date) 10 0RF unknown) (unknown) (no (unknown) (unknown) 10:00 02/17/22 (units (unknown) date) unknown) (unknown) (no (unknown) (unknown) 10:00 (units (unkno wn) date) unknown) (unknown) (no (unknown) (unknown) 10:30 02/17/22 (units (unknown) date) unknown) (unknown) (no (unknown) (unknown) 11:39 02/17/22 (units (unknown) date) unknown) (unknown) (no (unknown) (unknown) 11:40 02/17/22 (units (unknown) date) unknown) (unknown) (no (unknown) (unknown) 11:40 (units (unkno wn) date) unknown) (unknown) (no (unknown) (unknown) 11:45 02/17/22 (units (unknown) date) unknown) (unknown) (no (unknown) (unknown) 11:45 (units (unkno wn) date) unknown) (unknown) (no (unknown) (unknown) 11:50 02/17/22 (units (unknown) date) unknown) (unknown) (no (unknown) (unknown) 11:55 02/17/22 (units (unknown) date) unknown) (unknown) (no (unknown) (unknown) 11:55 (units (unkno wn) date) unknown) (unknown) (no (unknown) (unknown) 02/17/22 06:34 (units (unknown) date) unknown) (unknown) (no (unknown) (unknown) 02/17/22 06:55 (units (unknown) date) unknown) (unknown) (no (unknown) (unknown) 02/17/22 08:34 (units (unknown) date) unknown) (unknown) (no (unknown) (unknown) 02/17/22 09:11 (units (unknown) date) unknown) (unknown) (no (unknown) (unknown) 02/17/22 02/17/22 (units (unknown) date) 02/17/22 Range/Units unknown) (unknown) (no (unknown) (unknown) 02/17/22 02/17/22 (units (unknown) date) Range/Units unknown) (unknown) (no (unknown) (unknown) 02/17/22 (units (unkno wn) date) unknown) (unknown) (no (unknown) (unknown) 12:00 02/17/22 (units (unknown) date) unknown) (unknown) (no (unknown) (unknown) 12:00 (units (unkno wn) date) unknown) (unknown) (no (unknown) (unknown) 12:05 02/17/22 (units (unknown) date) unknown) (unknown) (no (unknown) (unknown) 12:05 (units (unkno wn) date) unknown) (unknown) (no (unknown) (unknown) 20 mg PO BEDTIME (units (unknown) date) Qty: 60 0RF unknown) (unknown) (no (unknown) (unknown) 29, chloride 97, (units (unknown) date) BUN 4 with a unknown) creatinine 0.61 not showing any renal dysfunction (unknown) (no (unknown) (unknown) ABD:bowel sounds (units (unknown) date) normal, soft, unknown) non-tender, no guarding, rebound, rigidity, no (unknown) (no (unknown) (unknown) ALT (<35) IU/L (units (unknown) date) unknown) (unknown) (no (unknown) (unknown) ALT 33 (<35) IU/L (units (unknown) date) unknown) (unknown) (no (unknown) (unknown) AST (14-36) IU/L (units (unknown) date) unknown) (unknown) (no (unknown) (unknown) AST 64 H (14-36) (units (unknown) date) IU/L unknown) (unknown) (no (unknown) (unknown) Acetaminophen < 10 (units (unknown) date) (10-30) ug/mL unknown) (unknown) (no (unknown) (unknown) Acetaminophen (units ( unknown) date) (10-30) ug/mL unknown) (unknown) (no (unknown) (unknown) Acetaminophen Stat (units (unknown) date) unknown) (unknown) (no (unknown) (unknown) Admin: 02/17/22 (units (unknown) date) 07:03 Dose: 1,000 unknown) mls/hr (unknown) (no (unknown) (unknown) Admin: 02/17/22 (units (unknown) date) 09:57 Dose: 1,000 unknown) mls/hr (unknown) (no (unknown) (unknown) Age/Sex: 31 / F (units (unknown) date) unknown) (unknown) (no (unknown) (unknown) Albumin (3.5-5.0) (units (unknown) date) g/dL unknown) (unknown) (no (unknown) (unknown) Albumin 3.6 (units (un known) date) (3.5-5.0) g/dL unknown) (unknown) (no (unknown) (unknown) Albumin/Globulin (units (unknown) date) Ratio (1.0-2.8) unknown) (unknown) (no (unknown) (unknown) Albumin/Globulin (units (unknown) date) Ratio 0.9 L unknown) (1.0-2.8) (unknown) (no (unknown) (unknown) Alkaline (units (unkno wn) date) Phosphatase (38-126) unknown) U/L (unknown) (no (unknown) (unknown) Alkaline (units (unkno wn) date) Phosphatase 55 unknown) (38-126) U/L (unknown) (no (unknown) (unknown) Allergies (units (unkn own) date) unknown) (unknown) (no (unknown) (unknown) Allergy/AdvReac (units (unknown) date) Type Severity unknown) Reaction Status Date / Time (unknown) (no (unknown) (unknown) BUN (7-17) mg/dL (units (unknown) date) unknown) (unknown) (no (unknown) (unknown) BUN 4 L (7-17) (units (unknown) date) mg/dL unknown) (unknown) (no (unknown) (unknown) BUN/Creatinine (units (unknown) date) Ratio (6-22) unknown) (unknown) (no (unknown) (unknown) BUN/Creatinine (units (unknown) date) Ratio 6.6 (6-22) unknown) (unknown) (no (unknown) (unknown) Baso # (Auto) (units ( unknown) date) (0-100) /uL unknown) (unknown) (no (unknown) (unknown) Baso # (Auto) 100 (units (unknown) date) (0-100) /uL unknown) (unknown) (no (unknown) (unknown) Baso % (Auto) (0-2) (unit s (unknown) date) % unknown) (unknown) (no (unknown) (unknown) Baso % (Auto) 1.2 (units (unknown) date) (0-2) % unknown) (unknown) (no (unknown) (unknown) Blood Pressure (units (unknown) date) 100/51 L unknown) (unknown) (no (unknown) (unknown) Blood Pressure (units (unknown) date) 100/55 L unknown) (unknown) (no (unknown) (unknown) Blood Pressure (units (unknown) date) 100/61 unknown) (unknown) (no (unknown) (unknown) Blood Pressure (units (unknown) date) 101/50 L 101/54 L unknown) (unknown) (no (unknown) (unknown) Blood Pressure (units (unknown) date) 101/52 L 106/51 L unknown) (unknown) (no (unknown) (unknown) Blood Pressure (units (unknown) date) 101/52 L unknown) (unknown) (no (unknown) (unknown) Blood Pressure (units (unknown) date) 101/56 L 108/55 L unknown) (unknown) (no (unknown) (unknown) Blood Pressure (units (unknown) date) 102/50 L 107/55 L unknown) (unknown) (no (unknown) (unknown) Blood Pressure (units (unknown) date) 105/54 L 102/53 L unknown) (unknown) (no (unknown) (unknown) Blood Pressure (units (unknown) date) 108/53 L unknown) (unknown) (no (unknown) (unknown) Blood Pressure (units (unknown) date) 82/52 L 02/17/22 unknown) 06:15 (unknown) (no (unknown) (unknown) Blood Pressure (units (unknown) date) 82/52 L unknown) (unknown) (no (unknown) (unknown) Blood Pressure (units (unknown) date) 91/50 L unknown) (unknown) (no (unknown) (unknown) Blood Pressure (units (unknown) date) 91/56 L 97/60 unknown) (unknown) (no (unknown) (unknown) Blood Pressure (units (unknown) date) 97/52 L unknown) (unknown) (no (unknown) (unknown) Blood Pressure (units (unknown) date) 97/61 unknown) (unknown) (no (unknown) (unknown) Blood Pressure (units (unknown) date) 98/61 96/57 L unknown) (unknown) (no (unknown) (unknown) Blood Pressure (units (unknown) date) 99/58 L unknown) (unknown) (no (unknown) (unknown) Blood Pressure (units (unknown) date) unknown) (unknown) (no (unknown) (unknown) Calcium (8.4-10.2) (units (unknown) date) mg/dL unknown) (unknown) (no (unknown) (unknown) Calcium 8.5 (units (un known) date) (8.4-10.2) mg/dL unknown) (unknown) (no (unknown) (unknown) Carbon Dioxide (units (unknown) date) (22-32) mmol/L unknown) (unknown) (no (unknown) (unknown) Carbon Dioxide 29 (units (unknown) date) (22-32) mmol/L unknown) (unknown) (no (unknown) (unknown) Chief complaint: (units (unknown) date) Weakness unknown) (unknown) (no (unknown) (unknown) Chloride (98-107) (units (unknown) date) mmol/L unknown) (unknown) (no (unknown) (unknown) Chloride 97 L (units ( unknown) date) (98-107) mmol/L unknown) (unknown) (no (unknown) (unknown) Clinical (units (unkno wn) date) Impression: unknown) (unknown) (no (unknown) (unknown) Complete Blood (units (unknown) date) Count AUTO DIFF Stat unknown) (unknown) (no (unknown) (unknown) Comprehensive (units ( unknown) date) Metabolic Panel Stat unknown) (unknown) (no (unknown) (unknown) Consult to [facility] [place] (units (unknown) date) Community Engagement Manager Stat unknown) (unknown) (no (unknown) (unknown) Course (units (unkno wn) date) unknown) (unknown) (no (unknown) (unknown) Creatinine (units (unk nown) date) (0.52-1.04) mg/dL unknown) (unknown) (no (unknown) (unknown) Creatinine 0.61 (units (unknown) date) (0.52-1.04) mg/dL unknown) (unknown) (no (unknown) (unknown) : 1990 (units (unknown) date) Acct:[id number] unknown) (unknown) (no (unknown) (unknown) Date of Service: (units (unknown) date) 02/17/22 unknown) (unknown) (no (unknown) (unknown) Departure (units (unkn own) date) unknown) (unknown) (no (unknown) (unknown) Diphenhydramine HCl (unit s (unknown) date) (Diphenhydramine 25 unknown) Mg Tablet) 25 mg PO NOW ONE (unknown) (no (unknown) (unknown) Discharge Plan (units (unknown) date) unknown) (unknown) (no (unknown) (unknown) Discontinued (units (u nknown) date) Medications unknown) (unknown) (no (unknown) (unknown) Documented By: AT (units (unknown) date) unknown) (unknown) (no (unknown) (unknown) Documented By: JACI (units (unknown) date) unknown) (unknown) (no (unknown) (unknown) Documented By: KB (units (unknown) date) unknown) (unknown) (no (unknown) (unknown) ED Orders (units (unkn own) date) unknown) (unknown) (no (unknown) (unknown) EKG-12 Lead Stat (units (unknown) date) unknown) (unknown) (no (unknown) (unknown) ER Physician: (units ( unknown) date) Margarita Pena D.O. unknown) (unknown) (no (unknown) (unknown) Emergency Report (units (unknown) date) unknown) (unknown) (no (unknown) (unknown) Eos # (Auto) (units (u nknown) date) (0-450) /uL unknown) (unknown) (no (unknown) (unknown) Eos # (Auto) 0 (units (unknown) date) (0-450) /uL unknown) (unknown) (no (unknown) (unknown) Eos % (Auto) (2-4) (units (unknown) date) % unknown) (unknown) (no (unknown) (unknown) Eos % (Auto) 0.0 L (units (unknown) date) (2-4) % unknown) (unknown) (no (unknown) (unknown) Estimated GFR > 60 (units (unknown) date) (>60) mL/min unknown) (unknown) (no (unknown) (unknown) Estimated GFR (>60) (unit s (unknown) date) mL/min unknown) (unknown) (no (unknown) (unknown) Ethanol (ETOH) Stat (unit s (unknown) date) unknown) (unknown) (no (unknown) (unknown) Ethyl Alcohol < 10 (units (unknown) date) ( - 10) mg/dL unknown) (unknown) (no (unknown) (unknown) Ethyl Alcohol ( - (units (unknown) date) 10) mg/dL unknown) (unknown) (no (unknown) (unknown) Exam Narrative: (units (unknown) date) unknown) (unknown) (no (unknown) (unknown) Exam (units (unkno wn) date) unknown) (unknown) (no (unknown) (unknown) GEN: Female in mild (unit s (unknown) date) distress, alert and unknown) oriented, patient appears to be in mild (unknown) (no (unknown) (unknown) GI or urinary (units ( unknown) date) symptoms. They note unknown) that she does tend to eat and drink better (unknown) (no (unknown) (unknown) :No CVA (units (unkn own) date) tenderness unknown) (unknown) (no (unknown) (unknown) General (units (unkno wn) date) unknown) (unknown) (no (unknown) (unknown) Globulin (1.7-4.1) (units (unknown) date) g/dL unknown) (unknown) (no (unknown) (unknown) Globulin 4.2 H (units (unknown) date) (1.7-4.1) g/dL unknown) (unknown) (no (unknown) (unknown) Glucose (70-100) (units (unknown) date) mg/dL unknown) (unknown) (no (unknown) (unknown) Glucose 130 H (units ( unknown) date) (70-100) mg/dL unknown) (unknown) (no (unknown) (unknown) HEART: Regular rate (unit s (unknown) date) and rhythm without unknown) murmur, clicks, rubs. No carotid bruits, (unknown) (no (unknown) (unknown) HEENT: Atraumatic, (units (unknown) date) pupils are equal unknown) round reactive to light, extraocular (unknown) (no (unknown) (unknown) HPI - General Adult (unit s (unknown) date) unknown) (unknown) (no (unknown) (unknown) HPI narrative: (units (unknown) date) unknown) (unknown) (no (unknown) (unknown) Hct (36-46) % (units ( unknown) date) unknown) (unknown) (no (unknown) (unknown) Hct 32.0 L (36-46) (units (unknown) date) % unknown) (unknown) (no (unknown) (unknown) Hgb (12.0-16.0) (units (unknown) date) g/dL unknown) (unknown) (no (unknown) (unknown) Hgb 10.6 L (units (unk nown) date) (12.0-16.0) g/dL unknown) (unknown) (no (unknown) (unknown) 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) (unknown) (no (unknown) (unknown) History of Present (units (unknown) date) Illness unknown) (unknown) (no (unknown) (unknown) History of (units (unk nown) date) pulmonary embolism unknown) (unknown) (no (unknown) (unknown) Initial Vital Signs (unit s (unknown) date) unknown) (unknown) (no (unknown) (unknown) Initial Vital (units ( unknown) date) Signs: unknown) (unknown) (no (unknown) (unknown) [facility] (units (unknown) date) [address] unknown) [place] [address] (unknown) (no (unknown) (unknown) LUNGS:Lungs clear (units (unknown) date) to auscultation, no unknown) wheezes, rales, crackles, chest moves (unknown) (no (unknown) (unknown) Lab Data (units (unkno wn) date) unknown) (unknown) (no (unknown) (unknown) Lab Results (units (un known) date) unknown) (unknown) (no (unknown) (unknown) Labs: (units (unkno wn) date) unknown) (unknown) (no (unknown) (unknown) Lactate (0.7-2.1) (units (unknown) date) mmol/L unknown) (unknown) (no (unknown) (unknown) Lactate (Lactic (units (unknown) date) Acid) Stat unknown) (unknown) (no (unknown) (unknown) Lactate 1.5 (units (un known) date) (0.7-2.1) mmol/L unknown) (unknown) (no (unknown) (unknown) Last Admin: (units (un known) date) 02/17/22 08:08 Dose: unknown) 40 meq (unknown) (no (unknown) (unknown) Last Admin: (units (un known) date) 02/17/22 09:01 Dose: unknown) 20 mg (unknown) (no (unknown) (unknown) Last Admin: (units (un known) date) 02/17/22 09:02 Dose: unknown) 25 mg (unknown) (no (unknown) (unknown) Last Admin: (units (un known) date) 02/17/22 09:02 Dose: unknown) 40 meq (unknown) (no (unknown) (unknown) Last Admin: (units (un known) date) 02/17/22 10:56 Dose: unknown) Not Given (unknown) (no (unknown) (unknown) Last Admin: (units (un known) date) 02/17/22 10:57 Dose: unknown) 1 mg (unknown) (no (unknown) (unknown) Last Infusion: (units (unknown) date) 02/17/22 08:10 Dose: unknown) 0 mls/hr (unknown) (no (unknown) (unknown) Last Infusion: (units (unknown) date) 02/17/22 11:53 Dose: unknown) 0 mls/hr (unknown) (no (unknown) (unknown) Limitations: no (units (unknown) date) limitations unknown) (unknown) (no (unknown) (unknown) Lipase (23-300) U/L (unit s (unknown) date) unknown) (unknown) (no (unknown) (unknown) Lipase 33 (23-300) (units (unknown) date) U/L unknown) (unknown) (no (unknown) (unknown) Lipase Stat (units (un known) date) unknown) (unknown) (no (unknown) (unknown) Lorazepam (units (unkn own) date) (Lorazepam 0.5 Mg unknown) Tablet) 2 mg PO NOW ONE (unknown) (no (unknown) (unknown) Lorazepam (units (unkn own) date) (Lorazepam 2 Mg/Ml unknown) Inj) 1 mg IM NOW ONE (unknown) (no (unknown) (unknown) Lymph # (Auto) (units (unknown) date) (6220-4545) /uL unknown) (unknown) (no (unknown) (unknown) Lymph # (Auto) 900 (units (unknown) date) L (9107-1759) /uL unknown) (unknown) (no (unknown) (unknown) Lymph % (Auto) (units (unknown) date) (25-40) % unknown) (unknown) (no (unknown) (unknown) Lymph % (Auto) 18.2 (unit s (unknown) date) L (25-40) % unknown) (unknown) (no (unknown) (unknown) [id number] (units (unk nown) date) unknown) (unknown) (no (unknown) (unknown) MCH (26-34) PG (units (unknown) date) unknown) (unknown) (no (unknown) (unknown) MCH 28.1 (26-34) PG (unit s (unknown) date) unknown) (unknown) (no (unknown) (unknown) MCHC (30-36) % (units (unknown) date) unknown) (unknown) (no (unknown) (unknown) MCHC 32.9 (30-36) % (unit s (unknown) date) unknown) (unknown) (no (unknown) (unknown) MCV (80-100) fL (units (unknown) date) unknown) (unknown) (no (unknown) (unknown) MCV 85.3 (80-100) (units (unknown) date) fL unknown) (unknown) (no (unknown) (unknown) MDM Narrative (units ( unknown) date) unknown) (unknown) (no (unknown) (unknown) MSCL: Non-tender, (units (unknown) date) no muscle atrophy, unknown) muscles strength 5/5 upper and lower (unknown) (no (unknown) (unknown) Magnesium (1.6-2.3) (unit s (unknown) date) mg/dL unknown) (unknown) (no (unknown) (unknown) Magnesium 2.1 (units ( unknown) date) (1.6-2.3) mg/dL unknown) (unknown) (no (unknown) (unknown) Magnesium Stat (units (unknown) date) unknown) (unknown) (no (unknown) (unknown) Medical Decision (units (unknown) date) Making unknown) (unknown) (no (unknown) (unknown) Medical History (units (unknown) date) (Reviewed 02/17/22 @ unknown) 08:54 by Margarita Pena DO) (unknown) (no (unknown) (unknown) Medical decision (units (unknown) date) making narrative: unknown) (unknown) (no (unknown) (unknown) Medication (units (unk nown) date) Instructions unknown) Recorded (unknown) (no (unknown) (unknown) Miscellaneous,[place] (unit s (unknown) date) MD bjorn [Primary Care unknown) Provider] (unknown) (no (unknown) (unknown) Mode of arrival: (units (unknown) date) Wheelchair unknown) (unknown) (no (unknown) (unknown) Butts # (Auto) (units ( unknown) date) (0-900) /uL unknown) (unknown) (no (unknown) (unknown) Butts # (Auto) 500 (units (unknown) date) (0-900) /uL unknown) (unknown) (no (unknown) (unknown) Butts % (Auto) (units ( unknown) date) (3-14) % unknown) (unknown) (no (unknown) (unknown) Butts % (Auto) 10.3 (units (unknown) date) (3-14) % unknown) (unknown) (no (unknown) (unknown) NEURO:CN 2-12 (units ( unknown) date) intact, sensation unknown) normal (unknown) (no (unknown) (unknown) Narrative (units (unkn own) date) unknown) (unknown) (no (unknown) (unknown) Neut # (Auto) (units ( unknown) date) (6240-5815) /uL unknown) (unknown) (no (unknown) (unknown) Neut # (Auto) 3400 (units (unknown) date) (9010-2424) /uL unknown) (unknown) (no (unknown) (unknown) Neut % (Auto) (units ( unknown) date) (50-75) % unknown) (unknown) (no (unknown) (unknown) Neut % (Auto) 70.3 (units (unknown) date) (50-75) % unknown) (unknown) (no (unknown) (unknown) No Action (units (unkn own) date) unknown) (unknown) (no (unknown) (unknown) Olanzapine (units (unk nown) date) (Olanzapine Odt 10 unknown) Mg Tab) 20 mg PO NOW ONE (unknown) (no (unknown) (unknown) Ordered: (units (unkno wn) date) unknown) (unknown) (no (unknown) (unknown) Orders (units (unkno wn) date) unknown) (unknown) (no (unknown) (unknown) Oxygen Delivery (units (unknown) date) Method 02/17/22 unknown) 06:15 (unknown) (no (unknown) (unknown) Oxygen Delivery (units (unknown) date) Method Room Air Room unknown) Air (unknown) (no (unknown) (unknown) Oxygen Delivery (units (unknown) date) Method Room Air unknown) (unknown) (no (unknown) (unknown) Oxygen Delivery (units (unknown) date) Method unknown) (unknown) (no (unknown) (unknown) PSYCH: (units (unkno wn) date) unknown) (unknown) (no (unknown) (unknown) Patient (units (unkno wn) date) Disposition: Home unknown) (unknown) (no (unknown) (unknown) Patient History (units (unknown) date) unknown) (unknown) (no (unknown) (unknown) Patient took oral (units (unknown) date) potassium here in unknown) the department was given additional dose, (unknown) (no (unknown) (unknown) Patient: (units (unkno wn) date) [place] unknown) MR#: (unknown) (no (unknown) (unknown) Phosphorous Stat (units (unknown) date) unknown) (unknown) (no (unknown) (unknown) Phosphorus (units (unk nown) date) (2.5-4.5) mg/dL unknown) (unknown) (no (unknown) (unknown) Phosphorus 4.8 H (units (unknown) date) (2.5-4.5) mg/dL unknown) (unknown) (no (unknown) (unknown) Plt Count (150-400) (unit s (unknown) date) X103/uL unknown) (unknown) (no (unknown) (unknown) Plt Count 99 L (units (unknown) date) (150-400) X103/uL unknown) (unknown) (no (unknown) (unknown) Potassium (3.4-5.1) (unit s (unknown) date) mmol/L unknown) (unknown) (no (unknown) (unknown) Potassium 2.8 L (units (unknown) date) (3.4-5.1) mmol/L unknown) (unknown) (no (unknown) (unknown) Potassium Chloride (units (unknown) date) (Potassium Chloride unknown) 20 Meq Tab) 40 meq PO NOW ONE (unknown) (no (unknown) (unknown) Test (units (unknown) date) Serum,Qual Stat unknown) (unknown) (no (unknown) (unknown) Prescriptions: (units (unknown) date) unknown) (unknown) (no (unknown) (unknown) Previous Rx's (units ( unknown) date) unknown) (unknown) (no (unknown) (unknown) Procalcitonin (units ( unknown) date) (<0.5) ng/mL unknown) (unknown) (no (unknown) (unknown) Procalcitonin 0.08 (units (unknown) date) (<0.5) ng/mL unknown) (unknown) (no (unknown) (unknown) Procalcitonin Stat (units (unknown) date) unknown) (unknown) (no (unknown) (unknown) Pulse Oximetry 100 (units (unknown) date) 100 100 unknown) (unknown) (no (unknown) (unknown) Pulse Oximetry 100 (units (unknown) date) 100 unknown) (unknown) (no (unknown) (unknown) Pulse Oximetry 100 (units (unknown) date) 02/17/22 06:15 unknown) (unknown) (no (unknown) (unknown) Pulse Oximetry 100 (units (unknown) date) 98 unknown) (unknown) (no (unknown) (unknown) Pulse Oximetry 100 (units (unknown) date) 99 unknown) (unknown) (no (unknown) (unknown) Pulse Oximetry 100 (units (unknown) date) unknown) (unknown) (no (unknown) (unknown) Pulse Oximetry 97 (units (unknown) date) unknown) (unknown) (no (unknown) (unknown) Pulse Oximetry 98 (units (unknown) date) 98 unknown) (unknown) (no (unknown) (unknown) Pulse Oximetry 98 (units (unknown) date) 99 unknown) (unknown) (no (unknown) (unknown) Pulse Oximetry 98 (units (unknown) date) unknown) (unknown) (no (unknown) (unknown) Pulse Oximetry 99 (units (unknown) date) 94 unknown) (unknown) (no (unknown) (unknown) Pulse Oximetry 99 (units (unknown) date) 99 unknown) (unknown) (no (unknown) (unknown) Pulse Oximetry 99 (units (unknown) date) unknown) (unknown) (no (unknown) (unknown) Pulse Rate 107 H (units (unknown) date) 105 H 112 H unknown) (unknown) (no (unknown) (unknown) Pulse Rate 107 H (units (unknown) date) 02/17/22 06:15 unknown) (unknown) (no (unknown) (unknown) Pulse Rate 108 H 99 (unit s (unknown) date) H unknown) (unknown) (no (unknown) (unknown) Pulse Rate 85 85 (units (unknown) date) unknown) (unknown) (no (unknown) (unknown) Pulse Rate 85 (units ( unknown) date) unknown) (unknown) (no (unknown) (unknown) Pulse Rate 86 85 (units (unknown) date) unknown) (unknown) (no (unknown) (unknown) Pulse Rate 86 (units ( unknown) date) unknown) (unknown) (no (unknown) (unknown) Pulse Rate 87 (units ( unknown) date) unknown) (unknown) (no (unknown) (unknown) Pulse Rate 89 89 (units (unknown) date) unknown) (unknown) (no (unknown) (unknown) Pulse Rate 89 (units ( unknown) date) unknown) (unknown) (no (unknown) (unknown) Pulse Rate 91 H 103 (unit s (unknown) date) H unknown) (unknown) (no (unknown) (unknown) Pulse Rate 92 H 90 (units (unknown) date) unknown) (unknown) (no (unknown) (unknown) Pulse Rate 95 H 107 (unit s (unknown) date) H unknown) (unknown) (no (unknown) (unknown) Pulse Rate 96 H 92 (units (unknown) date) H unknown) (unknown) (no (unknown) (unknown) Pulse Rate 97 H 91 (units (unknown) date) H unknown) (unknown) (no (unknown) (unknown) Pulse Rate 97 H (units (unknown) date) unknown) (unknown) (no (unknown) (unknown) RBC (4.0-5.2) (units ( unknown) date) X106/uL unknown) (unknown) (no (unknown) (unknown) RBC 3.75 L (units (unk nown) date) (4.0-5.2) X106/uL unknown) (unknown) (no (unknown) (unknown) RDW (11.6-14.8) % (units (unknown) date) unknown) (unknown) (no (unknown) (unknown) RDW 15.2 H (units (unk nown) date) (11.6-14.8) % unknown) (unknown) (no (unknown) (unknown) ROS Unobtainable: (units (unknown) date) All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 (units (unknown) date) Qty: 60 0RF unknown) (unknown) (no (unknown) (unknown) 29, chloride 97, (units (unknown) date) BUN 4 with a unknown) creatinine 0.61 not showing any renal dysfunction (unknown) (no (unknown) (unknown) ABD:bowel sounds (units (unknown) date) normal, soft, unknown) non-tender, no guarding, rebound, rigidity, no (unknown) (no (unknown) (unknown) ALT (<35) IU/L (units (unknown) date) unknown) (unknown) (no (unknown) (unknown) ALT 33 (<35) IU/L (units (unknown) date) unknown) (unknown) (no (unknown) (unknown) AST (14-36) IU/L (units (unknown) date) unknown) (unknown) (no (unknown) (unknown) AST 64 H (14-36) (units (unknown) date) IU/L unknown) (unknown) (no (unknown) (unknown) Acetaminophen < 10 (units (unknown) date) (10-30) ug/mL unknown) (unknown) (no (unknown) (unknown) Acetaminophen (units ( unknown) date) (10-30) ug/mL unknown) (unknown) (no (unknown) (unknown) Acetaminophen Stat (units (unknown) date) unknown) (unknown) (no (unknown) (unknown) Admin: 02/17/22 (units (unknown) date) 07:03 Dose: 1,000 unknown) mls/hr (unknown) (no (unknown) (unknown) Admin: 02/17/22 (units (unknown) date) 09:57 Dose: 1,000 unknown) mls/hr (unknown) (no (unknown) (unknown) Age/Sex: 31 / F (units (unknown) date) unknown) (unknown) (no (unknown) (unknown) Albumin (3.5-5.0) (units (unknown) date) g/dL unknown) (unknown) (no (unknown) (unknown) Albumin 3.6 (units (un known) date) (3.5-5.0) g/dL unknown) (unknown) (no (unknown) (unknown) Albumin/Globulin (units (unknown) date) Ratio (1.0-2.8) unknown) (unknown) (no (unknown) (unknown) Albumin/Globulin (units (unknown) date) Ratio 0.9 L unknown) (1.0-2.8) (unknown) (no (unknown) (unknown) Alkaline (units (unkno wn) date) Phosphatase (38-126) unknown) U/L (unknown) (no (unknown) (unknown) Alkaline (units (unkno wn) date) Phosphatase 55 unknown) (38-126) U/L (unknown) (no (unknown) (unknown) Allergies (units (unkn own) date) unknown) (unknown) (no (unknown) (unknown) Allergy/AdvReac (units (unknown) date) Type Severity unknown) Reaction Status Date / Time (unknown) (no (unknown) (unknown) Attestation: I (units (unknown) date) personally reviewed unknown) and interpreted this ECG as follows: (unknown) (no (unknown) (unknown) BUN (7-17) mg/dL (units (unknown) date) unknown) (unknown) (no (unknown) (unknown) BUN 4 L (7-17) (units (unknown) date) mg/dL unknown) (unknown) (no (unknown) (unknown) BUN/Creatinine (units (unknown) date) Ratio (6-22) unknown) (unknown) (no (unknown) (unknown) BUN/Creatinine (units (unknown) date) Ratio 6.6 (6-22) unknown) (unknown) (no (unknown) (unknown) Baso # (Auto) (units ( unknown) date) (0-100) /uL unknown) (unknown) (no (unknown) (unknown) Baso # (Auto) 100 (units (unknown) date) (0-100) /uL unknown) (unknown) (no (unknown) (unknown) Baso % (Auto) (0-2) (unit s (unknown) date) % unknown) (unknown) (no (unknown) (unknown) Baso % (Auto) 1.2 (units (unknown) date) (0-2) % unknown) (unknown) (no (unknown) (unknown) Blood Pressure (units (unknown) date) 100/51 L unknown) (unknown) (no (unknown) (unknown) Blood Pressure (units (unknown) date) 100/55 L unknown) (unknown) (no (unknown) (unknown) Blood Pressure (units (unknown) date) 100/61 unknown) (unknown) (no (unknown) (unknown) Blood Pressure (units (unknown) date) 101/50 L 101/54 L unknown) (unknown) (no (unknown) (unknown) Blood Pressure (units (unknown) date) 101/52 L 106/51 L unknown) (unknown) (no (unknown) (unknown) Blood Pressure (units (unknown) date) 101/52 L unknown) (unknown) (no (unknown) (unknown) Blood Pressure (units (unknown) date) 101/56 L 108/55 L unknown) (unknown) (no (unknown) (unknown) Blood Pressure (units (unknown) date) 102/50 L 107/55 L unknown) (unknown) (no (unknown) (unknown) Blood Pressure (units (unknown) date) 105/54 L 102/53 L unknown) (unknown) (no (unknown) (unknown) Blood Pressure (units (unknown) date) 108/53 L unknown) (unknown) (no (unknown) (unknown) Blood Pressure (units (unknown) date) 82/52 L 02/17/ unknown) 06:15 (unknown) (no (unknown) (unknown) Blood Pressure (units (unknown) date) 82/52 L unknown) (unknown) (no (unknown) (unknown) Blood Pressure (units (unknown) date) 91/50 L unknown) (unknown) (no (unknown) (unknown) Blood Pressure (units (unknown) date) 91/56 L 97/60 unknown) (unknown) (no (unknown) (unknown) Blood Pressure (units (unknown) date) 97/52 L unknown) (unknown) (no (unknown) (unknown) Blood Pressure (units (unknown) date) 97/61 unknown) (unknown) (no (unknown) (unknown) Blood Pressure (units (unknown) date) 98/61 96/57 L unknown) (unknown) (no (unknown) (unknown) Blood Pressure (units (unknown) date) 99/58 L unknown) (unknown) (no (unknown) (unknown) Blood Pressure (units (unknown) date) unknown) (unknown) (no (unknown) (unknown) Calcium (8.4-10.2) (units (unknown) date) mg/dL unknown) (unknown) (no (unknown) (unknown) Calcium 8.5 (units (un known) date) (8.4-10.2) mg/dL unknown) (unknown) (no (unknown) (unknown) Carbon Dioxide (units (unknown) date) (22-32) mmol/L unknown) (unknown) (no (unknown) (unknown) Carbon Dioxide 29 (units (unknown) date) (22-32) mmol/L unknown) (unknown) (no (unknown) (unknown) Chief complaint: (units (unknown) date) Weakness unknown) (unknown) (no (unknown) (unknown) Chloride (98-107) (units (unknown) date) mmol/L unknown) (unknown) (no (unknown) (unknown) Chloride 97 L (units ( unknown) date) (98-107) mmol/L unknown) (unknown) (no (unknown) (unknown) Clinical (units (unkno wn) date) Impression: unknown) (unknown) (no (unknown) (unknown) Complete Blood (units (unknown) date) Count AUTO DIFF Stat unknown) (unknown) (no (unknown) (unknown) Comprehensive (units ( unknown) date) Metabolic Panel Stat unknown) (unknown) (no (unknown) (unknown) Consult to FACE PAINTER - (units (unknown) date) Community Engagement Manager Stat unknown) (unknown) (no (unknown) (unknown) Course (units (unkno wn) date) unknown) (unknown) (no (unknown) (unknown) Creatinine (units (unk nown) date) (0.52-1.04) mg/dL unknown) (unknown) (no (unknown) (unknown) Creatinine 0.61 (units (unknown) date) (0.52-1.04) mg/dL unknown) (unknown) (no (unknown) (unknown) : 1990 (units (unknown) date) Acct:[id number] unknown) (unknown) (no (unknown) (unknown) Date of Service: (units (unknown) date) 02/17/22 unknown) (unknown) (no (unknown) (unknown) Departure (units (unkn own) date) unknown) (unknown) (no (unknown) (unknown) Diphenhydramine HCl (unit s (unknown) date) (Diphenhydramine 25 unknown) Mg Tablet) 25 mg PO NOW ONE (unknown) (no (unknown) (unknown) Discharge Plan (units (unknown) date) unknown) (unknown) (no (unknown) (unknown) Discontinued (units (u nknown) date) Medications unknown) (unknown) (no (unknown) (unknown) Documented By: AT (units (unknown) date) unknown) (unknown) (no (unknown) (unknown) Documented By: JACI (units (unknown) date) unknown) (unknown) (no (unknown) (unknown) Documented By: KB (units (unknown) date) unknown) (unknown) (no (unknown) (unknown) ECG Data (units (unkno wn) date) unknown) (unknown) (no (unknown) (unknown) ED Orders (units (unkn own) date) unknown) (unknown) (no (unknown) (unknown) EKG-12 Lead Stat (units (unknown) date) unknown) (unknown) (no (unknown) (unknown) ER Physician: (units ( unknown) date) Margarita Pena D.O. unknown) (unknown) (no (unknown) (unknown) Emergency Report (units (unknown) date) unknown) (unknown) (no (unknown) (unknown) Eos # (Auto) (units (u nknown) date) (0-450) /uL unknown) (unknown) (no (unknown) (unknown) Eos # (Auto) 0 (units (unknown) date) (0-450) /uL unknown) (unknown) (no (unknown) (unknown) Eos % (Auto) (2-4) (units (unknown) date) % unknown) (unknown) (no (unknown) (unknown) Eos % (Auto) 0.0 L (units (unknown) date) (2-4) % unknown) (unknown) (no (unknown) (unknown) Estimated GFR > 60 (units (unknown) date) (>60) mL/min unknown) (unknown) (no (unknown) (unknown) Estimated GFR (>60) (unit s (unknown) date) mL/min unknown) (unknown) (no (unknown) (unknown) Ethanol (ETOH) Stat (unit s (unknown) date) unknown) (unknown) (no (unknown) (unknown) Ethyl Alcohol < 10 (units (unknown) date) ( - 10) mg/dL unknown) (unknown) (no (unknown) (unknown) Ethyl Alcohol ( - (units (unknown) date) 10) mg/dL unknown) (unknown) (no (unknown) (unknown) Exam Narrative: (units (unknown) date) unknown) (unknown) (no (unknown) (unknown) Exam (units (unkno wn) date) unknown) (unknown) (no (unknown) (unknown) GEN: Female in mild (unit s (unknown) date) distress, alert and unknown) oriented, patient appears to be in mild (unknown) (no (unknown) (unknown) GI or urinary (units ( unknown) date) symptoms. They note unknown) that she does tend to eat and drink better (unknown) (no (unknown) (unknown) :No CVA (units (unkn own) date) tenderness unknown) (unknown) (no (unknown) (unknown) General (units (unkno wn) date) unknown) (unknown) (no (unknown) (unknown) Globulin (1.7-4.1) (units (unknown) date) g/dL unknown) (unknown) (no (unknown) (unknown) Globulin 4.2 H (units (unknown) date) (1.7-4.1) g/dL unknown) (unknown) (no (unknown) (unknown) Glucose (70-100) (units (unknown) date) mg/dL unknown) (unknown) (no (unknown) (unknown) Glucose 130 H (units ( unknown) date) (70-100) mg/dL unknown) (unknown) (no (unknown) (unknown) HEART: Regular rate (unit s (unknown) date) and rhythm without unknown) murmur, clicks, rubs. No carotid bruits, (unknown) (no (unknown) (unknown) HEENT: Atraumatic, (units (unknown) date) pupils are equal unknown) round reactive to light, extraocular (unknown) (no (unknown) (unknown) HPI - General Adult (unit s (unknown) date) unknown) (unknown) (no (unknown) (unknown) HPI narrative: (units (unknown) date) unknown) (unknown) (no (unknown) (unknown) Hct (36-46) % (units ( unknown) date) unknown) (unknown) (no (unknown) (unknown) Hct 32.0 L (36-46) (units (unknown) date) % unknown) (unknown) (no (unknown) (unknown) Hgb (12.0-16.0) (units (unknown) date) g/dL unknown) (unknown) (no (unknown) (unknown) Hgb 10.6 L (units (unk nown) date) (12.0-16.0) g/dL unknown) (unknown) (no (unknown) (unknown) 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) (unknown) (no (unknown) (unknown) History of Present (units (unknown) date) Illness unknown) (unknown) (no (unknown) (unknown) History of (units (unk nown) date) pulmonary embolism unknown) (unknown) (no (unknown) (unknown) Initial Vital Signs (unit s (unknown) date) unknown) (unknown) (no (unknown) (unknown) Initial Vital (units ( unknown) date) Signs: unknown) (unknown) (no (unknown) (unknown) Interpretation: (units (unknown) date) unknown) (unknown) (no (unknown) (unknown) [facility] (units (unknown) date) [address] [place] [address] unknown) [place] [address] (unknown) (no (unknown) (unknown) LUNGS:Lungs clear (units (unknown) date) to auscultation, no unknown) wheezes, rales, crackles, chest moves (unknown) (no (unknown) (unknown) Lab Data (units (unkno wn) date) unknown) (unknown) (no (unknown) (unknown) Lab Results (units (un known) date) unknown) (unknown) (no (unknown) (unknown) Labs: (units (unkno wn) date) unknown) (unknown) (no (unknown) (unknown) Lactate (0.7-2.1) (units (unknown) date) mmol/L unknown) (unknown) (no (unknown) (unknown) Lactate (Lactic (units (unknown) date) Acid) Stat unknown) (unknown) (no (unknown) (unknown) Lactate 1.5 (units (un known) date) (0.7-2.1) mmol/L unknown) (unknown) (no (unknown) (unknown) Last Admin: (units (un known) date) 02/17/22 08:08 Dose: unknown) 40 meq (unknown) (no (unknown) (unknown) Last Admin: (units (un known) date) 02/17/22 09:01 Dose: unknown) 20 mg (unknown) (no (unknown) (unknown) Last Admin: (units (un known) date) 02/17/22 09:02 Dose: unknown) 25 mg (unknown) (no (unknown) (unknown) Last Admin: (units (un known) date) 02/17/22 09:02 Dose: unknown) 40 meq (unknown) (no (unknown) (unknown) Last Admin: (units (un known) date) 02/17/22 10:56 Dose: unknown) Not Given (unknown) (no (unknown) (unknown) Last Admin: (units (un known) date) 02/17/22 10:57 Dose: unknown) 1 mg (unknown) (no (unknown) (unknown) Last Infusion: (units (unknown) date) 02/17/22 08:10 Dose: unknown) 0 mls/hr (unknown) (no (unknown) (unknown) Last Infusion: (units (unknown) date) 02/17/22 11:53 Dose: unknown) 0 mls/hr (unknown) (no (unknown) (unknown) Limitations: no (units (unknown) date) limitations unknown) (unknown) (no (unknown) (unknown) Lipase (23-300) U/L (unit s (unknown) date) unknown) (unknown) (no (unknown) (unknown) Lipase 33 (23-300) (units (unknown) date) U/L unknown) (unknown) (no (unknown) (unknown) Lipase Stat (units (un known) date) unknown) (unknown) (no (unknown) (unknown) Lorazepam (units (unkn own) date) (Lorazepam 0.5 Mg unknown) Tablet) 2 mg PO NOW ONE (unknown) (no (unknown) (unknown) Lorazepam (units (unkn own) date) (Lorazepam 2 Mg/Ml unknown) Inj) 1 mg IM NOW ONE (unknown) (no (unknown) (unknown) Lymph # (Auto) (units (unknown) date) (4074-9403) /uL unknown) (unknown) (no (unknown) (unknown) Lymph # (Auto) 900 (units (unknown) date) L (7250-9270) /uL unknown) (unknown) (no (unknown) (unknown) Lymph % (Auto) (units (unknown) date) (25-40) % unknown) (unknown) (no (unknown) (unknown) Lymph % (Auto) 18.2 (unit s (unknown) date) L (25-40) % unknown) (unknown) (no (unknown) (unknown) [id number] (units (unk nown) date) unknown) (unknown) (no (unknown) (unknown) MCH (26-34) PG (units (unknown) date) unknown) (unknown) (no (unknown) (unknown) MCH 28.1 (26-34) PG (unit s (unknown) date) unknown) (unknown) (no (unknown) (unknown) MCHC (30-36) % (units (unknown) date) unknown) (unknown) (no (unknown) (unknown) MCHC 32.9 (30-36) % (unit s (unknown) date) unknown) (unknown) (no (unknown) (unknown) MCV (80-100) fL (units (unknown) date) unknown) (unknown) (no (unknown) (unknown) MCV 85.3 (80-100) (units (unknown) date) fL unknown) (unknown) (no (unknown) (unknown) MDM Narrative (units ( unknown) date) unknown) (unknown) (no (unknown) (unknown) MSCL: Non-tender, (units (unknown) date) no muscle atrophy, unknown) muscles strength 5/5 upper and lower (unknown) (no (unknown) (unknown) Magnesium (1.6-2.3) (unit s (unknown) date) mg/dL unknown) (unknown) (no (unknown) (unknown) Magnesium 2.1 (units ( unknown) date) (1.6-2.3) mg/dL unknown) (unknown) (no (unknown) (unknown) Magnesium Stat (units (unknown) date) unknown) (unknown) (no (unknown) (unknown) Medical Decision (units (unknown) date) Making unknown) (unknown) (no (unknown) (unknown) Medical History (units (unknown) date) (Reviewed 02/17/22 @ unknown) 08:54 by Margarita Pena DO) (unknown) (no (unknown) (unknown) Medical decision (units (unknown) date) making narrative: unknown) (unknown) (no (unknown) (unknown) Medication (units (unk nown) date) Instructions unknown) Recorded (unknown) (no (unknown) (unknown) Miscellaneous,[place] (unit s (unknown) date) MD bjorn [Primary Care unknown) Provider] (unknown) (no (unknown) (unknown) Mode of arrival: (units (unknown) date) Wheelchair unknown) (unknown) (no (unknown) (unknown) Butts # (Auto) (units ( unknown) date) (0-900) /uL unknown) (unknown) (no (unknown) (unknown) Butts # (Auto) 500 (units (unknown) date) (0-900) /uL unknown) (unknown) (no (unknown) (unknown) Butts % (Auto) (units ( unknown) date) (3-14) % unknown) (unknown) (no (unknown) (unknown) Butts % (Auto) 10.3 (units (unknown) date) (3-14) % unknown) (unknown) (no (unknown) (unknown) NEURO:CN 2-12 (units ( unknown) date) intact, sensation unknown) normal (unknown) (no (unknown) (unknown) Narrative (units (unkn own) date) unknown) (unknown) (no (unknown) (unknown) Neut # (Auto) (units ( unknown) date) (9617-7838) /uL unknown) (unknown) (no (unknown) (unknown) Neut # (Auto) 3400 (units (unknown) date) (5918-7468) /uL unknown) (unknown) (no (unknown) (unknown) Neut % (Auto) (units ( unknown) date) (50-75) % unknown) (unknown) (no (unknown) (unknown) Neut % (Auto) 70.3 (units (unknown) date) (50-75) % unknown) (unknown) (no (unknown) (unknown) No Action (units (unkn own) date) unknown) (unknown) (no (unknown) (unknown) Olanzapine (units (unk nown) date) (Olanzapine Odt 10 unknown) Mg Tab) 20 mg PO NOW ONE (unknown) (no (unknown) (unknown) Ordered: (units (unkno wn) date) unknown) (unknown) (no (unknown) (unknown) Orders (units (unkno wn) date) unknown) (unknown) (no (unknown) (unknown) Oxygen Delivery (units (unknown) date) Method 02/17/22 unknown) 06:15 (unknown) (no (unknown) (unknown) Oxygen Delivery (units (unknown) date) Method Room Air Room unknown) Air (unknown) (no (unknown) (unknown) Oxygen Delivery (units (unknown) date) Method Room Air unknown) (unknown) (no (unknown) (unknown) Oxygen Delivery (units (unknown) date) Method unknown) (unknown) (no (unknown) (unknown) PSYCH: (units (unkno wn) date) unknown) (unknown) (no (unknown) (unknown) Patient (units (unkno wn) date) Disposition: Home unknown) (unknown) (no (unknown) (unknown) Patient History (units (unknown) date) unknown) (unknown) (no (unknown) (unknown) Patient because of (units (unknown) date) language barriers unknown) and her psychiatric issues does not follow (unknown) (no (unknown) (unknown) Patient does (units (u nknown) date) continue to pull and unknown) scratch it the we could try mittens but (unknown) (no (unknown) (unknown) Patient took oral (units (unknown) date) potassium x 2 here unknown) in the department was given additional (unknown) (no (unknown) (unknown) Patient: (units (unkno wn) date) [place] unknown) MR#: (unknown) (no (unknown) (unknown) Phosphorous Stat (units (unknown) date) unknown) (unknown) (no (unknown) (unknown) Phosphorus (units (unk nown) date) (2.5-4.5) mg/dL unknown) (unknown) (no (unknown) (unknown) Phosphorus 4.8 H (units (unknown) date) (2.5-4.5) mg/dL unknown) (unknown) (no (unknown) (unknown) Plt Count (150-400) (unit s (unknown) date) X103/uL unknown) (unknown) (no (unknown) (unknown) Plt Count 99 L (units (unknown) date) (150-400) X103/uL unknown) (unknown) (no (unknown) (unknown) Potassium (3.4-5.1) (unit s (unknown) date) mmol/L unknown) (unknown) (no (unknown) (unknown) Potassium 2.8 L (units (unknown) date) (3.4-5.1) mmol/L unknown) (unknown) (no (unknown) (unknown) Potassium Chloride (units (unknown) date) (Potassium Chloride unknown) 20 Meq Tab) 40 meq PO NOW ONE (unknown) (no (unknown) (unknown) Test (units (unknown) date) Serum,Qual Stat unknown) (unknown) (no (unknown) (unknown) Prescriptions: (units (unknown) date) unknown) (unknown) (no (unknown) (unknown) Previous Rx's (units ( unknown) date) unknown) (unknown) (no (unknown) (unknown) Procalcitonin (units ( unknown) date) (<0.5) ng/mL unknown) (unknown) (no (unknown) (unknown) Procalcitonin 0.08 (units (unknown) date) (<0.5) ng/mL unknown) (unknown) (no (unknown) (unknown) Procalcitonin Stat (units (unknown) date) unknown) (unknown) (no (unknown) (unknown) Pulse Oximetry 100 (units (unknown) date) 100 100 unknown) (unknown) (no (unknown) (unknown) Pulse Oximetry 100 (units (unknown) date) 100 unknown) (unknown) (no (unknown) (unknown) Pulse Oximetry 100 (units (unknown) date) 02/17/22 06:15 unknown) (unknown) (no (unknown) (unknown) Pulse Oximetry 100 (units (unknown) date) 98 unknown) (unknown) (no (unknown) (unknown) Pulse Oximetry 100 (units (unknown) date) 99 unknown) (unknown) (no (unknown) (unknown) Pulse Oximetry 100 (units (unknown) date) unknown) (unknown) (no (unknown) (unknown) Pulse Oximetry 97 (units (unknown) date) unknown) (unknown) (no (unknown) (unknown) Pulse Oximetry 98 (units (unknown) date) 98 unknown) (unknown) (no (unknown) (unknown) Pulse Oximetry 98 (units (unknown) date) 99 unknown) (unknown) (no (unknown) (unknown) Pulse Oximetry 98 (units (unknown) date) unknown) (unknown) (no (unknown) (unknown) Pulse Oximetry 99 (units (unknown) date) 94 unknown) (unknown) (no (unknown) (unknown) Pulse Oximetry 99 (units (unknown) date) 99 unknown) (unknown) (no (unknown) (unknown) Pulse Oximetry 99 (units (unknown) date) unknown) (unknown) (no (unknown) (unknown) Pulse Rate 107 H (units (unknown) date) 105 H 112 H unknown) (unknown) (no (unknown) (unknown) Pulse Rate 107 H (units (unknown) date) 02/17/22 06:15 unknown) (unknown) (no (unknown) (unknown) Pulse Rate 108 H 99 (unit s (unknown) date) H unknown) (unknown) (no (unknown) (unknown) Pulse Rate 85 85 (units (unknown) date) unknown) (unknown) (no (unknown) (unknown) Pulse Rate 85 (units ( unknown) date) unknown) (unknown) (no (unknown) (unknown) Pulse Rate 86 85 (units (unknown) date) unknown) (unknown) (no (unknown) (unknown) Pulse Rate 86 (units ( unknown) date) unknown) (unknown) (no (unknown) (unknown) Pulse Rate 87 (units ( unknown) date) unknown) (unknown) (no (unknown) (unknown) Pulse Rate 89 89 (units (unknown) date) unknown) (unknown) (no (unknown) (unknown) Pulse Rate 89 (units ( unknown) date) unknown) (unknown) (no (unknown) (unknown) Pulse Rate 91 H 103 (unit s (unknown) date) H unknown) (unknown) (no (unknown) (unknown) Pulse Rate 92 H 90 (units (unknown) date) unknown) (unknown) (no (unknown) (unknown) Pulse Rate 95 H 107 (unit s (unknown) date) H unknown) (unknown) (no (unknown) (unknown) Pulse Rate 96 H 92 (units (unknown) date) H unknown) (unknown) (no (unknown) (unknown) Pulse Rate 97 H 91 (units (unknown) date) H unknown) (unknown) (no (unknown) (unknown) Pulse Rate 97 H (units (unknown) date) unknown) (unknown) (no (unknown) (unknown) RBC (4.0-5.2) (units ( unknown) date) X106/uL unknown) (unknown) (no (unknown) (unknown) RBC 3.75 L (units (unk nown) date) (4.0-5.2) X106/uL unknown) (unknown) (no (unknown) (unknown) RDW (11.6-14.8) % (units (unknown) date) unknown) (unknown) (no (unknown) (unknown) RDW 15.2 H (units (unk nown) date) (11.6-14.8) % unknown) (unknown) (no (unknown) (unknown) ROS Unobtainable: (units (unknown) date) All systems reviewed unknown) + are unremarkable except as noted in HPI (unknown) (no (unknown) (unknown) Referrals: (units (unk nown) date) unknown) (unknown) (no (unknown) (unknown) Related Data (units (u nknown) date) unknown) (unknown) (no (unknown) (unknown) Respiratory Rate 18 (unit s (unknown) date) 02/17/22 06:15 unknown) (unknown) (no (unknown) (unknown) Respiratory Rate 18 (unit s (unknown) date) unknown) (unknown) (no (unknown) (unknown) Respiratory Rate (units (unknown) date) unknown) (unknown) (no (unknown) (unknown) Result diagrams: (units (unknown) date) unknown) (unknown) (no (unknown) (unknown) Review of Systems (units (unknown) date) unknown) (unknown) (no (unknown) (unknown) SKIN: Majority of (units (unknown) date) patients skin unknown) changes are on her scalp and face she does have (unknown) (no (unknown) (unknown) Salicylate Stat (units (unknown) date) unknown) (unknown) (no (unknown) (unknown) Salicylates < 1.0 (units (unknown) date) (<20) mg/dL unknown) (unknown) (no (unknown) (unknown) Salicylates (<20) (units (unknown) date) mg/dL unknown) (unknown) (no (unknown) (unknown) Schizophrenia (units ( unknown) date) unknown) (unknown) (no (unknown) (unknown) Schizophrenia, (units (unknown) date) Multiple open wounds unknown) of face, Hypokalemia (unknown) (no (unknown) (unknown) Serum , (units (unknown) date) Qual (Negative) unknown) (unknown) (no (unknown) (unknown) Serum , (units (unknown) date) Qual Negative unknown) (Negative) (unknown) (no (unknown) (unknown) Signed By: (units (unk nown) date) unknown) (unknown) (no (unknown) (unknown) Sinus rhythm (units (u nknown) date) nonspecific change unknown) rate 86 [place] 186 QRS 80 QTC [address]. No acute ST (unknown) (no (unknown) (unknown) Smoking Status: (units (unknown) date) Never smoker unknown) (unknown) (no (unknown) (unknown) Social History (units (unknown) date) (Reviewed 02/17/22 @ unknown) 08:54 by Margarita Pena DO) (unknown) (no (unknown) (unknown) Sodium (137-145) (units (unknown) date) mmol/L unknown) (unknown) (no (unknown) (unknown) Sodium 136 L (units (u nknown) date) (137-145) mmol/L unknown) (unknown) (no (unknown) (unknown) Sodium Chloride (units (unknown) date) (Normal Saline 0.9%) unknown) 1,000 mls @ 1,000 mls/hr IV BOLUS ONE (unknown) (no (unknown) (unknown) Source: patient, (units (unknown) date) family and old unknown) records reviewed (unknown) (no (unknown) (unknown) Stated complaint: (units (unknown) date) hasnt eaten in 6 unknown) days (unknown) (no (unknown) (unknown) Stop: 02/17/22 (units (unknown) date) 07:31 unknown) (unknown) (no (unknown) (unknown) Stop: 02/17/22 (units (unknown) date) 07:53 unknown) (unknown) (no (unknown) (unknown) Stop: 02/17/22 (units (unknown) date) 08:47 unknown) (unknown) (no (unknown) (unknown) Stop: 02/17/22 (units (unknown) date) 08:49 unknown) (unknown) (no (unknown) (unknown) Stop: 02/17/22 (units (unknown) date) 09:45 unknown) (unknown) (no (unknown) (unknown) Stop: 02/17/22 (units (unknown) date) 10:45 unknown) (unknown) (no (unknown) (unknown) Stop: 02/17/22 (units (unknown) date) 10:54 unknown) (unknown) (no (unknown) (unknown) Substance Use Type: (unit s (unknown) date) does not use unknown) (unknown) (no (unknown) (unknown) TSH (0.47-4.68) (units (unknown) date) uIU/mL unknown) (unknown) (no (unknown) (unknown) TSH 3.58 (units (unkno wn) date) (0.47-4.68) uIU/mL unknown) (unknown) (no (unknown) (unknown) Temperature 99.2 F (units (unknown) date) 02/17/22 06:15 unknown) (unknown) (no (unknown) (unknown) Temperature 99.2 F (units (unknown) date) unknown) (unknown) (no (unknown) (unknown) Temperature (units (un known) date) unknown) (unknown) (no (unknown) (unknown) They states she (units (unknown) date) sometimes is taking unknown) her medications but sometimes spits out she (unknown) (no (unknown) (unknown) This is a (units (unkn own) date) 31-year-old female unknown) with known psychiatric disorder likely prompting (unknown) (no (unknown) (unknown) This is a (units (unkn own) date) 31-year-old female unknown) with known schizophrenia, trichotillomania, OCD (unknown) (no (unknown) (unknown) Thyroid Stimulating (unit s (unknown) date) Hormone Stat unknown) (unknown) (no (unknown) (unknown) Time Seen by (units (u nknown) date) Provider: 02/17/22 unknown) 06:17 (unknown) (no (unknown) (unknown) Total Bilirubin (units (unknown) date) (0.2-1.3) mg/dL unknown) (unknown) (no (unknown) (unknown) Total Bilirubin 0.5 (unit s (unknown) date) (0.2-1.3) mg/dL unknown) (unknown) (no (unknown) (unknown) Total Protein (units ( unknown) date) (6.3-8.2) g/dL unknown) (unknown) (no (unknown) (unknown) Total Protein 7.8 (units (unknown) date) (6.3-8.2) g/dL unknown) (unknown) (no (unknown) (unknown) U Benzodiazepines (units (unknown) date) Scrn (Negative) unknown) (unknown) (no (unknown) (unknown) U Benzodiazepines (units (unknown) date) Scrn Negative unknown) (Negative) (unknown) (no (unknown) (unknown) U Marijuana (THC) (units (unknown) date) Screen (Negative) unknown) (unknown) (no (unknown) (unknown) U Marijuana (THC) (units (unknown) date) Screen Negative unknown) (Negative) (unknown) (no (unknown) (unknown) U Methamphetamines (units (unknown) date) Scrn (Negative) unknown) (unknown) (no (unknown) (unknown) U Methamphetamines (units (unknown) date) Scrn Negative unknown) (Negative) (unknown) (no (unknown) (unknown) U Opiates 300ng/mL (units (unknown) date) cut (Negative) unknown) (unknown) (no (unknown) (unknown) U Opiates 300ng/mL (units (unknown) date) cut Negative unknown) (Negative) (unknown) (no (unknown) (unknown) U Tricyclic (units (un known) date) Antidepress unknown) (Negative) (unknown) (no (unknown) (unknown) U Tricyclic (units (un known) date) Antidepress Negative unknown) (Negative) (unknown) (no (unknown) (unknown) Ur Amphetamines (units (unknown) date) Screen (Negative) unknown) (unknown) (no (unknown) (unknown) Ur Amphetamines (units (unknown) date) Screen Negative unknown) (Negative) (unknown) (no (unknown) (unknown) Ur Barbiturates (units (unknown) date) Screen (Negative) unknown) (unknown) (no (unknown) (unknown) Ur Barbiturates (units (unknown) date) Screen Negative unknown) (Negative) (unknown) (no (unknown) (unknown) Ur Culture (units (unk nown) date) Indicated? Cult not unknown) indicated (unknown) (no (unknown) (unknown) Ur Culture (units (unk nown) date) Indicated? unknown) (unknown) (no (unknown) (unknown) Ur Leukocyte (units (u nknown) date) Esterase (NEGATIVE) unknown) (unknown) (no (unknown) (unknown) Ur Leukocyte (units (u nknown) date) Esterase Negative unknown) (NEGATIVE) (unknown) (no (unknown) (unknown) Ur MDMA Scrn (units (u nknown) date) (Ecstasy) (Negative) unknown) (unknown) (no (unknown) (unknown) Ur MDMA Scrn (units (u nknown) date) (Ecstasy) Negative unknown) (Negative) (unknown) (no (unknown) (unknown) Ur Oxycodone Screen (unit s (unknown) date) (Negative) unknown) (unknown) (no (unknown) (unknown) Ur Oxycodone Screen (unit s (unknown) date) Negative (Negative) unknown) (unknown) (no (unknown) (unknown) Ur Phencyclidine (units (unknown) date) Scrn (Negative) unknown) (unknown) (no (unknown) (unknown) Ur Phencyclidine (units (unknown) date) Scrn Negative unknown) (Negative) (unknown) (no (unknown) (unknown) Ur Specific [place] (unit s (unknown) date) <=1.005 unknown) (1.000-1.035) (unknown) (no (unknown) (unknown) Ur Specific [place] (unit s (unknown) date) (1.000-1.035) unknown) (unknown) (no (unknown) (unknown) Ur Squamous Epith (units (unknown) date) Cells (0-5/HPF) unknown) (unknown) (no (unknown) (unknown) Ur Squamous Epith (units (unknown) date) Cells 0-1 /hpf unknown) (0-5/HPF) (unknown) (no (unknown) (unknown) Urinalysis and (units (unknown) date) Microscopic Stat unknown) (unknown) (no (unknown) (unknown) Urine Appearance (units (unknown) date) Clear unknown) (unknown) (no (unknown) (unknown) Urine Appearance (units (unknown) date) unknown) (unknown) (no (unknown) (unknown) Urine Bacteria (units (unknown) date) (None) unknown) (unknown) (no (unknown) (unknown) Urine Bacteria (units (unknown) date) Occasional (0-1) unknown) (None) (unknown) (no (unknown) (unknown) Urine Bilirubin (units (unknown) date) (NEGATIVE) unknown) (unknown) (no (unknown) (unknown) Urine Bilirubin (units (unknown) date) Negative (NEGATIVE) unknown) (unknown) (no (unknown) (unknown) Urine Cocaine (units ( unknown) date) Screen (Negative) unknown) (unknown) (no (unknown) (unknown) Urine Cocaine (units ( unknown) date) Screen Negative unknown) (Negative) (unknown) (no (unknown) (unknown) Urine Color Straw (units (unknown) date) unknown) (unknown) (no (unknown) (unknown) Urine Color (units (un known) date) unknown) (unknown) (no (unknown) (unknown) Urine Drug Screen, (units (unknown) date) Rapid Stat unknown) (unknown) (no (unknown) (unknown) Urine Glucose (UA) (units (unknown) date) (Negative) g/dL unknown) (unknown) (no (unknown) (unknown) Urine Glucose (UA) (units (unknown) date) Negative (Negative) unknown) g/dL (unknown) (no (unknown) (unknown) Urine Ketones (units ( unknown) date) (NEGATIVE) unknown) (unknown) (no (unknown) (unknown) Urine Ketones (units ( unknown) date) Negative (NEGATIVE) unknown) (unknown) (no (unknown) (unknown) Urine Methadone (units (unknown) date) Screen (Negative) unknown) (unknown) (no (unknown) (unknown) Urine Methadone (units (unknown) date) Screen Negative unknown) (Negative) (unknown) (no (unknown) (unknown) Urine Nitrate (units ( unknown) date) (Negative) unknown) (unknown) (no (unknown) (unknown) Urine Nitrate (units ( unknown) date) Negative (Negative) unknown) (unknown) (no (unknown) (unknown) Urine Occult Blood (units (unknown) date) (Negative) unknown) (unknown) (no (unknown) (unknown) Urine Occult Blood (units (unknown) date) Negative (Negative) unknown) (unknown) (no (unknown) (unknown) Urine Protein (units ( unknown) date) (Negative) unknown) (unknown) (no (unknown) (unknown) Urine Protein (units ( unknown) date) Negative (Negative) unknown) (unknown) (no (unknown) (unknown) Urine RBC (0-5/HPF) (unit s (unknown) date) unknown) (unknown) (no (unknown) (unknown) Urine RBC None seen (unit s (unknown) date) (0-5/HPF) unknown) (unknown) (no (unknown) (unknown) Urine Urobilinogen (units (unknown) date) (0.2) E.U./dL unknown) (unknown) (no (unknown) (unknown) Urine Urobilinogen (units (unknown) date) 0.2 (0.2) E.U./dL unknown) (unknown) (no (unknown) (unknown) Urine WBC (0-5/HPF) (unit s (unknown) date) unknown) (unknown) (no (unknown) (unknown) Urine WBC 0-1/hpf (units (unknown) date) (0-5/HPF) unknown) (unknown) (no (unknown) (unknown) Urine pH (4.5-8.0) (units (unknown) date) unknown) (unknown) (no (unknown) (unknown) Urine pH 7.0 (units (u nknown) date) (4.5-8.0) unknown) (unknown) (no (unknown) (unknown) Vital Signs - 8 hr (units (unknown) date) unknown) (unknown) (no (unknown) (unknown) Vital Signs (units (un known) date) unknown) (unknown) (no (unknown) (unknown) Vital signs: (units (u nknown) date) unknown) (unknown) (no (unknown) (unknown) WBC (4.5-11.0) (units (unknown) date) X103/uL unknown) (unknown) (no (unknown) (unknown) WBC 4.8 (4.5-11.0) (units (unknown) date) X103/uL unknown) (unknown) (no (unknown) (unknown) [Embedded Image Not (unit s (unknown) date) Available] unknown) (unknown) (no (unknown) (unknown) amoxicillin 875 (units (unknown) date) mg-potassium 1 tab unknown) PO Q12H #10 tabs 02/11/22 (unknown) (no (unknown) (unknown) amoxicillin-pot (units (unknown) date) clavulanate 875-125 unknown) mg tablet (unknown) (no (unknown) (unknown) an IV form. (units (un known) date) Discussed with unknown) Iain regarding admission for hypokalemia and (unknown) (no (unknown) (unknown) and below (units (unkn own) date) unknown) (unknown) (no (unknown) (unknown) at this time. They (units (unknown) date) did ask about unknown) admission to the hospital I did discuss with (unknown) (no (unknown) (unknown) been abraded quite (units (unknown) date) a bit and there is unknown) also some scabbing and abrasions on the (unknown) (no (unknown) (unknown) behaviors they do (units (unknown) date) not feel that she unknown) necessarily needs inpatient psychiatric (unknown) (no (unknown) (unknown) better she does not (units (unknown) date) appear to be septic unknown) today her blood pressure is on the lower (unknown) (no (unknown) (unknown) better since she (units (unknown) date) returned home the unknown) wounds on her face have open back up in the (unknown) (no (unknown) (unknown) caregivers, she has (unit s (unknown) date) schizophrenia and unknown) obsessive-compulsive behaviors she was (unknown) (no (unknown) (unknown) changes no (units (unk nown) date) sinusoidal changes. unknown) (unknown) (no (unknown) (unknown) clavulanate 125 mg (units (unknown) date) tablet unknown) (unknown) (no (unknown) (unknown) commands well and (units (unknown) date) there was delay in unknown) getting EKG. (unknown) (no (unknown) (unknown) completely herself (units (unknown) date) in the room and unknown) handed it to her parents. (unknown) (no (unknown) (unknown) conjunctival (units (u nknown) date) pallor. Throat is unknown) clear without any exudates, erythema, tonsillar (unknown) (no (unknown) (unknown) consistently. (units ( unknown) date) unknown) (unknown) (no (unknown) (unknown) currently. Patient (units (unknown) date) had a recent unknown) hospitalization for sepsis likely thought to be (unknown) (no (unknown) (unknown) decreased oral (units (unknown) date) intake. At this time unknown) defers she is taking oral potassium. (unknown) (no (unknown) (unknown) difficulty with (units (unknown) date) breathing, no unknown) complaints of chest pain, no nausea or vomiting, (unknown) (no (unknown) (unknown) discharged on (units ( unknown) date) 02/11/2022. Patient unknown) is not really able to participate in (unknown) (no (unknown) (unknown) distress. Patient (units (unknown) date) is conversant with unknown) her parents. (unknown) (no (unknown) (unknown) dose, home (units (unk nown) date) olanzapine of 20mg unknown) given, 1L fluids given. Patient did take all of (unknown) (no (unknown) (unknown) drainage and she is (unit s (unknown) date) taking antibiotics. unknown) (unknown) (no (unknown) (unknown) end but looks like (units (unknown) date) she was persistently unknown) low with systolic Vmax in the 100 range (unknown) (no (unknown) (unknown) enlargement or (units (unknown) date) uvular deviation, unknown) patient has patches of hair missing on her (unknown) (no (unknown) (unknown) even at discharge. (units (unknown) date) Patient's labs show unknown) hypokalemia at 2.8, otherwise bicarb is (unknown) (no (unknown) (unknown) examination she (units (unknown) date) does talk to her unknown) parents but does not interact much with me she (unknown) (no (unknown) (unknown) extremities, full (units (unknown) date) range of motion. unknown) Patient was able to remove her brief (unknown) (no (unknown) (unknown) female with history (unit s (unknown) date) of IVC filter and unknown) prior DVT PE in 2018 who's primary (unknown) (no (unknown) (unknown) from soft tissue (units (unknown) date) infection secondary unknown) from scratching in open wounds from (unknown) (no (unknown) (unknown) get her follow-up, (units (unknown) date) social work is unknown) meeting with patient and family. Discussed (unknown) (no (unknown) (unknown) given a dose of (units (unknown) date) Ativan she was not unknown) willing to take this orally so was given as (unknown) (no (unknown) (unknown) her not to eat much (units (unknown) date) food was noted this unknown) was a problem during her hospitalization (unknown) (no (unknown) (unknown) hospitalization. (units (unknown) date) Discussed with unknown) parents she is had 1 prior inpatient (unknown) (no (unknown) (unknown) household members: (units (unknown) date) family unknown) (unknown) (no (unknown) (unknown) is negative. Mother (unit s (unknown) date) did express concern unknown) is she still has drainage from her ear (unknown) (no (unknown) (unknown) is supposed to be (units (unknown) date) taking her Zyprexa unknown) and Prozac. 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 (unknown) (no (unknown) (unknown) last 2 days she is (units (unknown) date) been itching and unknown) scratching at them a lot, they state that (unknown) (no (unknown) (unknown) left lateral side (units (unknown) date) of her nose, I do unknown) not appreciate swelling, drainage, foul (unknown) (no (unknown) (unknown) masses noted, no (units (unknown) date) hepatosplenomegaly unknown) (unknown) (no (unknown) (unknown) mirtazapine AdvReac (unit s (unknown) date) Intermediate Rash unknown) severe Verified 01/30/22 06:52 (unknown) (no (unknown) (unknown) movements are (units ( unknown) date) intact, nares are unknown) clear, TMs are clear with no fluid, there is no (unknown) (no (unknown) (unknown) mupirocin 2 % (units ( unknown) date) Ointment unknown) (unknown) (no (unknown) (unknown) mupirocin 2 % (units ( unknown) date) topical ointment 1 unknown) applic topical BID #45 grams 02/11/22 (unknown) (no (unknown) (unknown) odor. (units (unkno wn) date) unknown) (unknown) (no (unknown) (unknown) of Ativan. I do (units (unknown) date) have a call out to unknown) Dr. Reyez with psychiatry to see if we can (unknown) (no (unknown) (unknown) olanzapine 10 mg (units (unknown) date) disintegrating 20 mg unknown) PO BEDTIME #60 tabs 02/11/22 (unknown) (no (unknown) (unknown) olanzapine [Zyprexa (unit s (unknown) date) Zydis] 10 mg unknown) Tablet,Disintegratin g (unknown) (no (unknown) (unknown) other changes she (units (unknown) date) has not been altered unknown) in other ways or had new changes from her (unknown) (no (unknown) (unknown) other skin changes (units (unknown) date) noted on the torso unknown) or pelvis anterior or posteriorly. (unknown) (no (unknown) (unknown) otherwise normal (units (unknown) date) LFTs, TSH and serum unknown) is negative. Patient is anemic (unknown) (no (unknown) (unknown) patient is quite (units (unknown) date) strong and will unknown) likely pull these off. Given additional dose (unknown) (no (unknown) (unknown) patient's (units (unkn own) date) obsessive-compulsive unknown) activities and possible viral pneumonia. She was (unknown) (no (unknown) (unknown) placement as well (units (unknown) date) as lower shins. No unknown) significant abrasions or ecchymosis or (unknown) (no (unknown) (unknown) placement their (units (unknown) date) main concern today unknown) is getting her to eat and drink more (unknown) (no (unknown) (unknown) posterior scalp top (unit s (unknown) date) of her scalp and unknown) abrasions no deep wounds passed the (unknown) (no (unknown) (unknown) psychiatric (units (un known) date) hospitalization unknown) quite some time ago but more for aggressive hitting (unknown) (no (unknown) (unknown) pulses are equal in (unit s (unknown) date) upper and lower unknown) extremities (unknown) (no (unknown) (unknown) recently for sepsis (unit s (unknown) date) and infection, unknown) parents state her wounds or significantly (unknown) (no (unknown) (unknown) regularly but based (unit s (unknown) date) on language barriers unknown) this might actually be more (unknown) (no (unknown) (unknown) seeing a (units (unkno wn) date) psychiatrist but unknown) they left she is on Zyprexa, Prozac and amoxicillin (unknown) (no (unknown) (unknown) she has not been (units (unknown) date) eating for the past unknown) 6 days she has been taking some liquids. (unknown) (no (unknown) (unknown) some small areas of (unit s (unknown) date) ecchymosis on her unknown) wrist and consistent with prior IV (unknown) (no (unknown) (unknown) superficial skin (units (unknown) date) layer. Patient's unknown) chin the most superficial layer of skin has (unknown) (no (unknown) (unknown) symmetrically (units ( unknown) date) unknown) (unknown) (no (unknown) (unknown) tablet (Zyprexa (units (unknown) date) Zydis) unknown) (unknown) (no (unknown) (unknown) that she was (units (u nknown) date) drinking adequate unknown) fluids but not taking food during her (unknown) (no (unknown) (unknown) them that so far (units (unknown) date) hospitalist has unknown) declined. (unknown) (no (unknown) (unknown) these, patient does (unit s (unknown) date) continue to pull at unknown) the scabs and wounds on her head, was (unknown) (no (unknown) (unknown) today, phosphorus (units (unknown) date) is 4.8 with a unknown) glucose of 130 lactate normal at 1.5 with (unknown) (no (unknown) (unknown) traumatizing for (units (unknown) date) the patient and not unknown) helpful. Family is not interested in this (unknown) (no (unknown) (unknown) typical. They have (units (unknown) date) not appreciated unknown) redness or swelling. No other new (unknown) (no (unknown) (unknown) we did discuss that (unit s (unknown) date) because she has a unknown) perfect TM she will have some persistent (unknown) (no (unknown) (unknown) when she is taking (units (unknown) date) her medications more unknown) consistently. Discharge no also notes (unknown) (no (unknown) (unknown) white count is 4.8 (units (unknown) date) with platelets of 99 unknown) no leftward shift or bandemia. UA today (unknown) (no (unknown) (unknown) will sort of follow (unit s (unknown) date) commands. Patient unknown) parents state that she has been doing (unknown) (no (unknown) (unknown) with a hemoglobin (units (unknown) date) of 10 which appears unknown) similar to her earlier stay this month, (unknown) (no (unknown) (unknown) with family about (units (unknown) date) inpatient unknown) psychiatric so that patient can get her medications Result panel 537 (unknown) (no (unknown) (unknown) (no value) (units (unk nown) date) unknown) (unknown) (no (unknown) (unknown) (1) Schizophrenia: (units (unknown) date) unknown) (unknown) (no (unknown) (unknown) (02/17/2022) (units (u nknown) date) continuing to note unknown) that the patient refuses to eat and only drinks (unknown) (no (unknown) (unknown) (2) Compulsive (units (unknown) date) behaviors: unknown) (unknown) (no (unknown) (unknown) (3) Multiple open (units (unknown) date) wounds of face: unknown) (unknown) (no (unknown) (unknown) (4) Soft tissue (units (unknown) date) infection: unknown) (unknown) (no (unknown) (unknown) (past 8 hours): (units (unknown) date) unknown) (unknown) (no (unknown) (unknown) * Affect: Sleeping (units (unknown) date) unknown) (unknown) (no (unknown) (unknown) * Alcohol: The (units (unknown) date) patient does not unknown) drink. No history of abuse. (unknown) (no (unknown) (unknown) * Allergies: (units (u nknown) date) Mirtazapine as unknown) listed in chart. (unknown) (no (unknown) (unknown) * Appearance: (units ( unknown) date) Thin, ill appearing unknown) filipina female seen lying in her hospital (unknown) (no (unknown) (unknown) * Attention: (units (u nknown) date) Asleep unknown) (unknown) (no (unknown) (unknown) * Behavior: Asleep (units (unknown) date) sedated from recent unknown) administration of Ativan. (unknown) (no (unknown) (unknown) * Blast Exposure: (units (unknown) date) N/A unknown) (unknown) (no (unknown) (unknown) * Childhood (units (un known) date) Trauma: None known unknown) (unknown) (no (unknown) (unknown) * Combat Exposure: (units (unknown) date) N/A unknown) (unknown) (no (unknown) (unknown) * Current Living: (units (unknown) date) Currently lives unknown) with parents on [facility] and they are (unknown) (no (unknown) (unknown) * Current (units (unkn own) date) Medications: See unknown) list above. (unknown) (no (unknown) (unknown) * Deployments: N/A (units (unknown) date) unknown) (unknown) (no (unknown) (unknown) * Developmental (units (unknown) date) milestones: unknown) Developmental delay. (unknown) (no (unknown) (unknown) * Diagnoses: (units (u nknown) date) Chronic history of unknown) schizophrenia and OCD as well as intellectual (unknown) (no (unknown) (unknown) * Drugs: The (units (u nknown) date) patient does not unknown) use drugs. (unknown) (no (unknown) (unknown) * Education: (units (u nknown) date) Unknown unknown) (unknown) (no (unknown) (unknown) * Employment: (units ( unknown) date) Never employed unknown) (unknown) (no (unknown) (unknown) * Eye contact: (units (unknown) date) None unknown) (unknown) (no (unknown) (unknown) * Family (units (unkno wn) date) [place]ellation/Envir unknown) onment: Unclear regarding patient's siblings. (unknown) (no (unknown) (unknown) * Gait: Not tested (units (unknown) date) unknown) (unknown) (no (unknown) (unknown) * Grooming: (units (un known) date) Dressed in hospital unknown) attire. (unknown) (no (unknown) (unknown) * (units (unkno wn) date) Herbals/Supplements unknown) : None. (unknown) (no (unknown) (unknown) * Inpatient: (units (u nknown) date) Unknown whether or unknown) not the patient has been an inpatient in the (unknown) (no (unknown) (unknown) * Insight: Poor by (units (unknown) date) history unknown) (unknown) (no (unknown) (unknown) * Judgment: Poor (units (unknown) date) by history unknown) (unknown) (no (unknown) (unknown) * Legal: No (units (un known) date) current legal unknown) difficulties. (unknown) (no (unknown) (unknown) * Maternal: None (units (unknown) date) known unknown) (unknown) (no (unknown) (unknown) * Medical (units (unkn own) date) Problems: Recent unknown) history of sepsis. (unknown) (no (unknown) (unknown) * Memory: Unable (units (unknown) date) to examine unknown) (unknown) (no (unknown) (unknown) * Mood: Unable to (units (unknown) date) state unknown) (unknown) (no (unknown) (unknown) * None. (units (unkno wn) date) unknown) (unknown) (no (unknown) (unknown) * Orientation: (units (unknown) date) Unable to examine unknown) (unknown) (no (unknown) (unknown) * Outpatient: Was (units (unknown) date) seen in this clinic unknown) for roughly 4-5 years for being lost to (unknown) (no (unknown) (unknown) * PCP: Unclear (units (unknown) date) unknown) (unknown) (no (unknown) (unknown) * Paternal: None (units (unknown) date) known unknown) (unknown) (no (unknown) (unknown) * Relationships: (units (unknown) date) No relationship unknown) (unknown) (no (unknown) (unknown) * Siblings: None (units (unknown) date) known unknown) (unknown) (no (unknown) (unknown) * Speech: Not (units ( unknown) date) tested unknown) (unknown) (no (unknown) (unknown) * Suicide (units (unkn own) date) Attempts: None unknown) known (unknown) (no (unknown) (unknown) * Support: (units (unk nown) date) Supported by unknown) parents (unknown) (no (unknown) (unknown) * Thought Content: (units (unknown) date) Not tested unknown) (unknown) (no (unknown) (unknown) * Thought Process: (units (unknown) date) Not tested unknown) (unknown) (no (unknown) (unknown) * Tobacco: The (units (unknown) date) patient does not unknown) smoke. (unknown) (no (unknown) (unknown) 06:55 06:55 06:55 (units (unknown) date) unknown) (unknown) (no (unknown) (unknown) 07:10 02/17/22 (units (unknown) date) unknown) (unknown) (no (unknown) (unknown) 07:15 02/17/22 (units (unknown) date) unknown) (unknown) (no (unknown) (unknown) 07:15 (units (unkno wn) date) unknown) (unknown) (no (unknown) (unknown) 07:20 02/17/22 (units (unknown) date) unknown) (unknown) (no (unknown) (unknown) 07:20 (units (unkno wn) date) unknown) (unknown) (no (unknown) (unknown) 07:25 02/17/22 (units (unknown) date) unknown) (unknown) (no (unknown) (unknown) 07:30 02/17/22 (units (unknown) date) unknown) (unknown) (no (unknown) (unknown) 07:30 (units (unkno wn) date) unknown) (unknown) (no (unknown) (unknown) 07:35 02/17/22 (units (unknown) date) unknown) (unknown) (no (unknown) (unknown) 07:35 (units (unkno wn) date) unknown) (unknown) (no (unknown) (unknown) 07:40 02/17/22 (units (unknown) date) unknown) (unknown) (no (unknown) (unknown) 07:45 02/17/22 (units (unknown) date) unknown) (unknown) (no (unknown) (unknown) 07:45 (units (unkno wn) date) unknown) (unknown) (no (unknown) (unknown) 07:50 02/17/22 (units (unknown) date) unknown) (unknown) (no (unknown) (unknown) 07:50 (units (unkno wn) date) unknown) (unknown) (no (unknown) (unknown) 07:55 02/17/22 (units (unknown) date) unknown) (unknown) (no (unknown) (unknown) 08:00 02/17/22 (units (unknown) date) unknown) (unknown) (no (unknown) (unknown) 08:00 (units (unkno wn) date) unknown) (unknown) (no (unknown) (unknown) 08:05 02/17/22 (units (unknown) date) unknown) (unknown) (no (unknown) (unknown) 08:05 (units (unkno wn) date) unknown) (unknown) (no (unknown) (unknown) 08:10 02/17/22 (units (unknown) date) unknown) (unknown) (no (unknown) (unknown) 08:20 02/17/22 (units (unknown) date) unknown) (unknown) (no (unknown) (unknown) 08:20 (units (unkno wn) date) unknown) (unknown) (no (unknown) (unknown) 08:26 02/17/22 (units (unknown) date) unknown) (unknown) (no (unknown) (unknown) 08:26 (units (unkno wn) date) unknown) (unknown) (no (unknown) (unknown) 08:30 02/17/22 (units (unknown) date) unknown) (unknown) (no (unknown) (unknown) 09:11 09:11 (units (un known) date) unknown) (unknown) (no (unknown) (unknown) 1. Although (units (un known) date) patient could unknown) benefit from inpatient admission, with no beds (unknown) (no (unknown) (unknown) 10:00 02/17/22 (units (unknown) date) unknown) (unknown) (no (unknown) (unknown) 10:00 (units (unkno wn) date) unknown) (unknown) (no (unknown) (unknown) 10:30 02/17/22 (units (unknown) date) unknown) (unknown) (no (unknown) (unknown) 11:39 02/17/22 (units (unknown) date) unknown) (unknown) (no (unknown) (unknown) 11:40 02/17/22 (units (unknown) date) unknown) (unknown) (no (unknown) (unknown) 11:40 (units (unkno wn) date) unknown) (unknown) (no (unknown) (unknown) 11:45 02/17/22 (units (unknown) date) unknown) (unknown) (no (unknown) (unknown) 11:45 (units (unkno wn) date) unknown) (unknown) (no (unknown) (unknown) 11:50 02/17/22 (units (unknown) date) unknown) (unknown) (no (unknown) (unknown) 11:55 02/17/22 (units (unknown) date) unknown) (unknown) (no (unknown) (unknown) 11:55 (units (unkno wn) date) unknown) (unknown) (no (unknown) (unknown) 02/17/22 06:55 (units (unknown) date) unknown) (unknown) (no (unknown) (unknown) 02/17/22 02/17/22 (units (unknown) date) 02/17/22 unknown) (unknown) (no (unknown) (unknown) 02/17/22 02/17/22 (units (unknown) date) unknown) (unknown) (no (unknown) (unknown) 02/17/22 1542 (units ( unknown) date) unknown) (unknown) (no (unknown) (unknown) 02/17/22 (units (unkno wn) date) unknown) (unknown) (no (unknown) (unknown) 12:00 02/17/22 (units (unknown) date) unknown) (unknown) (no (unknown) (unknown) 12:00 (units (unkno wn) date) unknown) (unknown) (no (unknown) (unknown) 12:05 02/17/22 (units (unknown) date) unknown) (unknown) (no (unknown) (unknown) 12:10 02/17/22 (units (unknown) date) unknown) (unknown) (no (unknown) (unknown) 12:10 (units (unkno wn) date) unknown) (unknown) (no (unknown) (unknown) 12:15 02/17/22 (units (unknown) date) unknown) (unknown) (no (unknown) (unknown) 12:15 (units (unkno wn) date) unknown) (unknown) (no (unknown) (unknown) 12:20 02/17/22 (units (unknown) date) unknown) (unknown) (no (unknown) (unknown) 12:25 02/17/22 (units (unknown) date) unknown) (unknown) (no (unknown) (unknown) 12:25 (units (unkno wn) date) unknown) (unknown) (no (unknown) (unknown) 12:30 02/17/22 (units (unknown) date) unknown) (unknown) (no (unknown) (unknown) 12:30 (units (unkno wn) date) unknown) (unknown) (no (unknown) (unknown) 12:35 02/17/22 (units (unknown) date) unknown) (unknown) (no (unknown) (unknown) 12:40 02/17/22 (units (unknown) date) unknown) (unknown) (no (unknown) (unknown) 12:40 (units (unkno wn) date) unknown) (unknown) (no (unknown) (unknown) 12:45 02/17/22 (units (unknown) date) unknown) (unknown) (no (unknown) (unknown) 12:45 (units (unkno wn) date) unknown) (unknown) (no (unknown) (unknown) 12:50 02/17/22 (units (unknown) date) unknown) (unknown) (no (unknown) (unknown) 12:55 02/17/22 (units (unknown) date) unknown) (unknown) (no (unknown) (unknown) 12:55 (units (unkno wn) date) unknown) (unknown) (no (unknown) (unknown) 13:00 02/17/22 (units (unknown) date) unknown) (unknown) (no (unknown) (unknown) 13:00 (units (unkno wn) date) unknown) (unknown) (no (unknown) (unknown) 13:05 02/17/22 (units (unknown) date) unknown) (unknown) (no (unknown) (unknown) 13:10 02/17/22 (units (unknown) date) unknown) (unknown) (no (unknown) (unknown) 13:10 (units (unkno wn) date) unknown) (unknown) (no (unknown) (unknown) 13:15 02/17/22 (units (unknown) date) unknown) (unknown) (no (unknown) (unknown) 13:15 (units (unkno wn) date) unknown) (unknown) (no (unknown) (unknown) 13:20 02/17/22 (units (unknown) date) unknown) (unknown) (no (unknown) (unknown) 13:25 02/17/22 (units (unknown) date) unknown) (unknown) (no (unknown) (unknown) 13:25 (units (unkno wn) date) unknown) (unknown) (no (unknown) (unknown) 13:30 02/17/22 (units (unknown) date) unknown) (unknown) (no (unknown) (unknown) 13:30 (units (unkno wn) date) unknown) (unknown) (no (unknown) (unknown) 13:35 02/17/22 (units (unknown) date) unknown) (unknown) (no (unknown) (unknown) 13:40 02/17/22 (units (unknown) date) unknown) (unknown) (no (unknown) (unknown) 13:40 (units (unkno wn) date) unknown) (unknown) (no (unknown) (unknown) 13:45 02/17/22 (units (unknown) date) unknown) (unknown) (no (unknown) (unknown) 13:45 (units (unkno wn) date) unknown) (unknown) (no (unknown) (unknown) 13:50 02/17/22 (units (unknown) date) unknown) (unknown) (no (unknown) (unknown) 13:55 02/17/22 (units (unknown) date) unknown) (unknown) (no (unknown) (unknown) 13:55 (units (unkno wn) date) unknown) (unknown) (no (unknown) (unknown) 14:00 02/17/22 (units (unknown) date) unknown) (unknown) (no (unknown) (unknown) 14:00 (units (unkno wn) date) unknown) (unknown) (no (unknown) (unknown) 14:05 02/17/22 (units (unknown) date) unknown) (unknown) (no (unknown) (unknown) 14:10 02/17/22 (units (unknown) date) unknown) (unknown) (no (unknown) (unknown) 14:10 (units (unkno wn) date) unknown) (unknown) (no (unknown) (unknown) 14:15 02/17/22 (units (unknown) date) unknown) (unknown) (no (unknown) (unknown) 14:15 (units (unkno wn) date) unknown) (unknown) (no (unknown) (unknown) 14:20 02/17/22 (units (unknown) date) unknown) (unknown) (no (unknown) (unknown) 14:25 02/17/22 (units (unknown) date) unknown) (unknown) (no (unknown) (unknown) 14:25 (units (unkno wn) date) unknown) (unknown) (no (unknown) (unknown) 14:30 02/17/22 (units (unknown) date) unknown) (unknown) (no (unknown) (unknown) 14:30 (units (unkno wn) date) unknown) (unknown) (no (unknown) (unknown) 14:35 02/17/22 (units (unknown) date) unknown) (unknown) (no (unknown) (unknown) 14:35 (units (unkno wn) date) unknown) (unknown) (no (unknown) (unknown) 2. Instruct parents (units (unknown) date) to resume previous unknown) medications of fluoxetine 20 mg daily and (unknown) (no (unknown) (unknown) 3. Recommend using (units (unknown) date) Zyprexa Zydis unknown) (dissolving lozenges) in order to ensure (unknown) (no (unknown) (unknown) 4. Recommend (units (u nknown) date) continued unknown) antibiotic treatment for soft tissue infection from skin (unknown) (no (unknown) (unknown) 5. Mother (units (unkno wn) date) encouraged to unknown) improve nutrition with any means possible including, but (unknown) (no (unknown) (unknown) 6. Patient to (units ( unknown) date) follow-up with me unknown) as an outpatient in the Psychiatry and (unknown) (no (unknown) (unknown) ALT 32 (units (unkno wn) date) unknown) (unknown) (no (unknown) (unknown) ALT (units (unkno wn) date) unknown) (unknown) (no (unknown) (unknown) ASSESSMENT/MEDICAL (units (unknown) date) DECISION MAKING unknown) (unknown) (no (unknown) (unknown) AST 64 H (units (unkno wn) date) unknown) (unknown) (no (unknown) (unknown) AST (units (unkno wn) date) unknown) (unknown) (no (unknown) (unknown) Acetaminophen < 10 (units (unknown) date) unknown) (unknown) (no (unknown) (unknown) Acetaminophen (units ( unknown) date) unknown) (unknown) (no (unknown) (unknown) After being (units (un known) date) discharged from the unknown) hospital on 02/11/2022, they returned today (unknown) (no (unknown) (unknown) Age/Sex: 31 / F (units (unknown) date) unknown) (unknown) (no (unknown) (unknown) Albumin 3.6 (units (un known) date) unknown) (unknown) (no (unknown) (unknown) Albumin (units (unkno wn) date) unknown) (unknown) (no (unknown) (unknown) Albumin/Globulin (units (unknown) date) Ratio 0.9 L unknown) (unknown) (no (unknown) (unknown) Albumin/Globulin (units (unknown) date) Ratio unknown) (unknown) (no (unknown) (unknown) Alkaline (units (unkno wn) date) Phosphatase 55 unknown) (unknown) (no (unknown) (unknown) Alkaline (units (unkno wn) date) Phosphatase unknown) (unknown) (no (unknown) (unknown) Allergies (units (unkn own) date) unknown) (unknown) (no (unknown) (unknown) Allergy/AdvReac (units (unknown) date) Type Severity unknown) Reaction Status Date / Time (unknown) (no (unknown) (unknown) Assessment + Plan (units (unknown) date) narrative: unknown) (unknown) (no (unknown) (unknown) Assessment + Plan (units (unknown) date) unknown) (unknown) (no (unknown) (unknown) Assessment and (units (unknown) date) plan unknown) (unknown) (no (unknown) (unknown) BUN 4 L (units (unkno wn) date) unknown) (unknown) (no (unknown) (unknown) BUN (units (unkno wn) date) unknown) (unknown) (no (unknown) (unknown) BUN/Creatinine (units (unknown) date) Ratio 6.6 unknown) (unknown) (no (unknown) (unknown) BUN/Creatinine (units (unknown) date) Ratio unknown) (unknown) (no (unknown) (unknown) Baso # (Auto) 100 (units (unknown) date) unknown) (unknown) (no (unknown) (unknown) Baso # (Auto) (units ( unknown) date) unknown) (unknown) (no (unknown) (unknown) Baso % (Auto) 1.2 (units (unknown) date) unknown) (unknown) (no (unknown) (unknown) Baso % (Auto) (units ( unknown) date) unknown) (unknown) (no (unknown) (unknown) [facility] (units (unknown) date) Clinic at 8:00 a.m. unknown) on MondayMarch 02. (unknown) (no (unknown) (unknown) Blood Pressure (units (unknown) date) 100/51 L unknown) (unknown) (no (unknown) (unknown) Blood Pressure (units (unknown) date) 100/55 L unknown) (unknown) (no (unknown) (unknown) Blood Pressure (units (unknown) date) 100/58 L unknown) (unknown) (no (unknown) (unknown) Blood Pressure (units (unknown) date) 100/59 L unknown) (unknown) (no (unknown) (unknown) Blood Pressure (units (unknown) date) 100/61 101/64 unknown) (unknown) (no (unknown) (unknown) Blood Pressure (units (unknown) date) 100/61 99/61 unknown) (unknown) (no (unknown) (unknown) Blood Pressure (units (unknown) date) 101/50 L 101/54 L unknown) (unknown) (no (unknown) (unknown) Blood Pressure (units (unknown) date) 101/52 L 106/51 L unknown) (unknown) (no (unknown) (unknown) Blood Pressure (units (unknown) date) 101/52 L unknown) (unknown) (no (unknown) (unknown) Blood Pressure (units (unknown) date) 101/56 L 108/55 L unknown) (unknown) (no (unknown) (unknown) Blood Pressure (units (unknown) date) 101/66 unknown) (unknown) (no (unknown) (unknown) Blood Pressure (units (unknown) date) 102/50 L 107/55 L unknown) (unknown) (no (unknown) (unknown) Blood Pressure (units (unknown) date) 103/62 unknown) (unknown) (no (unknown) (unknown) Blood Pressure (units (unknown) date) 103/66 unknown) (unknown) (no (unknown) (unknown) Blood Pressure (units (unknown) date) 105/54 L 102/53 L unknown) (unknown) (no (unknown) (unknown) Blood Pressure (units (unknown) date) 108/53 L unknown) (unknown) (no (unknown) (unknown) Blood Pressure (units (unknown) date) 91/56 L 97/60 unknown) (unknown) (no (unknown) (unknown) Blood Pressure (units (unknown) date) 95/61 unknown) (unknown) (no (unknown) (unknown) Blood Pressure (units (unknown) date) 96/61 99/61 unknown) (unknown) (no (unknown) (unknown) Blood Pressure (units (unknown) date) 97/52 L unknown) (unknown) (no (unknown) (unknown) Blood Pressure (units (unknown) date) 97/57 L 100/60 unknown) (unknown) (no (unknown) (unknown) Blood Pressure (units (unknown) date) 97/57 L unknown) (unknown) (no (unknown) (unknown) Blood Pressure (units (unknown) date) 97/58 L 98/65 unknown) (unknown) (no (unknown) (unknown) Blood Pressure (units (unknown) date) 97/61 unknown) (unknown) (no (unknown) (unknown) Blood Pressure (units (unknown) date) 97/62 98/63 unknown) (unknown) (no (unknown) (unknown) Blood Pressure (units (unknown) date) 98/56 L 99/59 L unknown) (unknown) (no (unknown) (unknown) Blood Pressure (units (unknown) date) 98/57 L 99/58 L unknown) (unknown) (no (unknown) (unknown) Blood Pressure (units (unknown) date) 98/58 L unknown) (unknown) (no (unknown) (unknown) Blood Pressure (units (unknown) date) 98/59 L 95/57 L unknown) (unknown) (no (unknown) (unknown) Blood Pressure (units (unknown) date) 98/61 96/57 L unknown) (unknown) (no (unknown) (unknown) Blood Pressure (units (unknown) date) 98/61 unknown) (unknown) (no (unknown) (unknown) Blood Pressure (units (unknown) date) 99/58 L unknown) (unknown) (no (unknown) (unknown) Blood Pressure (units (unknown) date) 99/63 98/59 L unknown) (unknown) (no (unknown) (unknown) Blood Pressure (units (unknown) date) unknown) (unknown) (no (unknown) (unknown) CHIEF COMPLAINT (units (unknown) date) unknown) (unknown) (no (unknown) (unknown) CURRENT (units (unkno wn) date) PSYCHOTROPIC unknown) MEDICATIONS (unknown) (no (unknown) (unknown) Calcium 8.5 (units (un known) date) unknown) (unknown) (no (unknown) (unknown) Calcium (units (unkno wn) date) unknown) (unknown) (no (unknown) (unknown) Carbon Dioxide 29 (units (unknown) date) unknown) (unknown) (no (unknown) (unknown) Carbon Dioxide (units (unknown) date) unknown) (unknown) (no (unknown) (unknown) Chief complaint: (units (unknown) date) hasnt eaten in 6 unknown) days (unknown) (no (unknown) (unknown) Chloride 97 L (units ( unknown) date) unknown) (unknown) (no (unknown) (unknown) Chloride (units (unkno wn) date) unknown) (unknown) (no (unknown) (unknown) Consult Note (units (u nknown) date) unknown) (unknown) (no (unknown) (unknown) Consult details (units (unknown) date) unknown) (unknown) (no (unknown) (unknown) Creatinine 0.61 (units (unknown) date) unknown) (unknown) (no (unknown) (unknown) Creatinine (units (unk nown) date) unknown) (unknown) (no (unknown) (unknown) Critical Care (units ( unknown) date) time: unknown) (unknown) (no (unknown) (unknown) DEVELOPMENTAL AND (units (unknown) date) SOCIAL HISTORY unknown) (unknown) (no (unknown) (unknown) : 1990 (units (unknown) date) Acct:[id number] unknown) (unknown) (no (unknown) (unknown) DVT from the long (units (unknown) date) plane flight. unknown) Somewhere around the time of traveling the (unknown) (no (unknown) (unknown) Date Patient Seen: (units (unknown) date) 02/17/22 unknown) (unknown) (no (unknown) (unknown) Date of Service: (units (unknown) date) 02/17/22 unknown) (unknown) (no (unknown) (unknown) ED staff spoke (units (unknown) date) with the patient's unknown) mother and father to obtain history. (unknown) (no (unknown) (unknown) Eos # (Auto) 0 (units (unknown) date) unknown) (unknown) (no (unknown) (unknown) Eos # (Auto) (units (u nknown) date) unknown) (unknown) (no (unknown) (unknown) Eos % (Auto) 0.0 L (units (unknown) date) unknown) (unknown) (no (unknown) (unknown) Eos % (Auto) (units (u nknown) date) unknown) (unknown) (no (unknown) (unknown) Estimated GFR > 60 (units (unknown) date) unknown) (unknown) (no (unknown) (unknown) Estimated GFR (units ( unknown) date) unknown) (unknown) (no (unknown) (unknown) Ethyl Alcohol < 10 (units (unknown) date) unknown) (unknown) (no (unknown) (unknown) Ethyl Alcohol (units ( unknown) date) unknown) (unknown) (no (unknown) (unknown) Exam Narrative: (units (unknown) date) unknown) (unknown) (no (unknown) (unknown) Exam (units (unkno wn) date) unknown) (unknown) (no (unknown) (unknown) FAMILY HISTORY (units (unknown) date) unknown) (unknown) (no (unknown) (unknown) Globulin 4.2 H (units (unknown) date) unknown) (unknown) (no (unknown) (unknown) Globulin (units (unkno wn) date) unknown) (unknown) (no (unknown) (unknown) Glucose 130 H (units ( unknown) date) unknown) (unknown) (no (unknown) (unknown) Glucose (units (unkno wn) date) unknown) (unknown) (no (unknown) (unknown) HISTORY OF PRESENT (units (unknown) date) ILLNESS unknown) (unknown) (no (unknown) (unknown) Has been treated (units (unknown) date) with fluoxetine and unknown) olanzapine for the past several years. 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 Significant unknown) erythema/rash of face/neck. Drainage noted (unknown) (no (unknown) (unknown) History of (units (unk nown) date) pulmonary embolism unknown) (unknown) (no (unknown) (unknown) Home Medications (units (unknown) date) and Allergies unknown) (unknown) (no (unknown) (unknown) Home Medications (units (unknown) date) unknown) (unknown) (no (unknown) (unknown) I recommend the (units (unknown) date) patient be unknown) discharged family and home. (unknown) (no (unknown) (unknown) I spent a total of (units (unknown) date) 80 minutes of unknown) critical care time on this patient's care (unknown) (no (unknown) (unknown) I spoke with the (units (unknown) date) patient's mother. unknown) (unknown) (no (unknown) (unknown) In addition she (units (unknown) date) also has a very unknown) long history of profoundly poor appetite and (unknown) (no (unknown) (unknown) In the last month (units (unknown) date) or so, the unknown) patient's condition has deteriorated significantly. (unknown) (no (unknown) (unknown) [facility] (units (unknown) date) [address] unknown) [place] [address] (unknown) (no (unknown) (unknown) Laboratory Results (units (unknown) date) - last 24 hr unknown) (unknown) (no (unknown) (unknown) Labs (units (unkno wn) date) unknown) (unknown) (no (unknown) (unknown) Labs: (units (unkno wn) date) unknown) (unknown) (no (unknown) (unknown) Lactate 1.5 (units (un known) date) unknown) (unknown) (no (unknown) (unknown) Lactate (units (unkno wn) date) unknown) (unknown) (no (unknown) (unknown) Lipase 33 (units (unkn own) date) unknown) (unknown) (no (unknown) (unknown) Lipase (units (unkno wn) date) unknown) (unknown) (no (unknown) (unknown) Lymph # (Auto) 900 (units (unknown) date) L unknown) (unknown) (no (unknown) (unknown) Lymph # (Auto) (units (unknown) date) unknown) (unknown) (no (unknown) (unknown) Lymph % (Auto) (units (unknown) date) 18.2 L unknown) (unknown) (no (unknown) (unknown) Lymph % (Auto) (units (unknown) date) unknown) (unknown) (no (unknown) (unknown) [id number] (units (unk nown) date) unknown) (unknown) (no (unknown) (unknown) MCH 28.1 (units (unkno wn) date) unknown) (unknown) (no (unknown) (unknown) MCH (units (unkno wn) date) unknown) (unknown) (no (unknown) (unknown) MCHC 32.9 (units (unkn own) date) unknown) (unknown) (no (unknown) (unknown) MCHC (units (unkno wn) date) unknown) (unknown) (no (unknown) (unknown) MCV 85.3 (units (unkno wn) date) unknown) (unknown) (no (unknown) (unknown) MCV (units (unkno wn) date) unknown) (unknown) (no (unknown) (unknown) MENTAL STATUS EXAM (units (unknown) date) unknown) (unknown) (no (unknown) (unknown) HISTORY (units (unknown) date) unknown) (unknown) (no (unknown) (unknown) Magnesium 2.1 (units ( unknown) date) unknown) (unknown) (no (unknown) (unknown) Magnesium (units (unkn own) date) unknown) (unknown) (no (unknown) (unknown) Medical History (units (unknown) date) (Reviewed 02/17/22 unknown) @ 15:28 by Clifton Reyez MD) (unknown) (no (unknown) (unknown) Medication (units (unk nown) date) Instructions unknown) Recorded Confirmed Type (unknown) (no (unknown) (unknown) Meds (units (unkno wn) date) unknown) (unknown) (no (unknown) (unknown) Butts # (Auto) 500 (units (unknown) date) unknown) (unknown) (no (unknown) (unknown) Butts # (Auto) (units ( unknown) date) unknown) (unknown) (no (unknown) (unknown) Butts % (Auto) 10.3 (units (unknown) date) unknown) (unknown) (no (unknown) (unknown) Butts % (Auto) (units ( unknown) date) unknown) (unknown) (no (unknown) (unknown) Most recently (units ( unknown) date) fluoxetine 20 mg unknown) daily and olanzapine 20 mg nightly. (unknown) (no (unknown) (unknown) Narrative (units (unkn own) date) unknown) (unknown) (no (unknown) (unknown) Narrative: (units (unk nown) date) unknown) (unknown) (no (unknown) (unknown) Neut # (Auto) 3400 (units (unknown) date) unknown) (unknown) (no (unknown) (unknown) Neut # (Auto) (units ( unknown) date) unknown) (unknown) (no (unknown) (unknown) Neut % (Auto) 70.3 (units (unknown) date) unknown) (unknown) (no (unknown) (unknown) Neut % (Auto) (units ( unknown) date) unknown) (unknown) (no (unknown) (unknown) Objective (units (unkn own) date) unknown) (unknown) (no (unknown) (unknown) Oxygen Delivery (units (unknown) date) Method Room Air unknown) Room Air (unknown) (no (unknown) (unknown) Oxygen Delivery (units (unknown) date) Method Room Air unknown) (unknown) (no (unknown) (unknown) Oxygen Delivery (units (unknown) date) Method unknown) (unknown) (no (unknown) (unknown) PAST PSYCHIATRIC (units (unknown) date) HISTORY unknown) (unknown) (no (unknown) (unknown) PCP who has (units (un known) date) provided medication unknown) prescriptions for them. (unknown) (no (unknown) (unknown) PFSH (units (unkno wn) date) unknown) (unknown) (no (unknown) (unknown) PREVIOUS (units (unkno wn) date) PSYCHIATRIC unknown) MEDICATION TRIALS (unknown) (no (unknown) (unknown) Patient: (units (unkno wn) date) [place] unknown) MR#: (unknown) (no (unknown) (unknown) [facility] in 2019 (units (unknown) date) for a family visit unknown) and when they returned, the patient had a (unknown) (no (unknown) (unknown) [facility], the (units (unknown) date) patient's parents unknown) have intermittently discontinued fluoxetine (unknown) (no (unknown) (unknown) Phosphorus 4.8 H (units (unknown) date) unknown) (unknown) (no (unknown) (unknown) Phosphorus (units (unk nown) date) unknown) (unknown) (no (unknown) (unknown) Plt Count 99 L (units (unknown) date) unknown) (unknown) (no (unknown) (unknown) Plt Count (units (unkn own) date) unknown) (unknown) (no (unknown) (unknown) Potassium 2.8 L (units (unknown) date) unknown) (unknown) (no (unknown) (unknown) Potassium (units (unkn own) date) unknown) (unknown) (no (unknown) (unknown) Problem details: (units (unknown) date) unknown) (unknown) (no (unknown) (unknown) Procalcitonin 0.08 (units (unknown) date) unknown) (unknown) (no (unknown) (unknown) Procalcitonin (units ( unknown) date) unknown) (unknown) (no (unknown) (unknown) Provider: (units (unkn own) date) Clifton Reyez MD unknown) (unknown) (no (unknown) (unknown) Pulse Oximetry 100 (units (unknown) date) 100 unknown) (unknown) (no (unknown) (unknown) Pulse Oximetry 100 (units (unknown) date) 98 unknown) (unknown) (no (unknown) (unknown) Pulse Oximetry 100 (units (unknown) date) 99 unknown) (unknown) (no (unknown) (unknown) Pulse Oximetry 100 (units (unknown) date) unknown) (unknown) (no (unknown) (unknown) Pulse Oximetry 97 (units (unknown) date) unknown) (unknown) (no (unknown) (unknown) Pulse Oximetry 98 (units (unknown) date) 98 unknown) (unknown) (no (unknown) (unknown) Pulse Oximetry 98 (units (unknown) date) unknown) (unknown) (no (unknown) (unknown) Pulse Oximetry 99 (units (unknown) date) 100 unknown) (unknown) (no (unknown) (unknown) Pulse Oximetry 99 (units (unknown) date) 94 unknown) (unknown) (no (unknown) (unknown) Pulse Oximetry 99 (units (unknown) date) 98 unknown) (unknown) (no (unknown) (unknown) Pulse Oximetry 99 (units (unknown) date) 99 unknown) (unknown) (no (unknown) (unknown) Pulse Oximetry 99 (units (unknown) date) unknown) (unknown) (no (unknown) (unknown) Pulse Rate 82 84 (units (unknown) date) unknown) (unknown) (no (unknown) (unknown) Pulse Rate 83 (units ( unknown) date) unknown) (unknown) (no (unknown) (unknown) Pulse Rate 84 84 (units (unknown) date) unknown) (unknown) (no (unknown) (unknown) Pulse Rate 84 85 (units (unknown) date) unknown) (unknown) (no (unknown) (unknown) Pulse Rate 84 (units ( unknown) date) unknown) (unknown) (no (unknown) (unknown) Pulse Rate 85 84 (units (unknown) date) unknown) (unknown) (no (unknown) (unknown) Pulse Rate 85 85 (units (unknown) date) unknown) (unknown) (no (unknown) (unknown) Pulse Rate 85 (units ( unknown) date) unknown) (unknown) (no (unknown) (unknown) Pulse Rate 86 85 (units (unknown) date) unknown) (unknown) (no (unknown) (unknown) Pulse Rate 86 (units ( unknown) date) unknown) (unknown) (no (unknown) (unknown) Pulse Rate 87 84 (units (unknown) date) unknown) (unknown) (no (unknown) (unknown) Pulse Rate 87 (units ( unknown) date) unknown) (unknown) (no (unknown) (unknown) Pulse Rate 88 89 (units (unknown) date) unknown) (unknown) (no (unknown) (unknown) Pulse Rate 89 89 (units (unknown) date) unknown) (unknown) (no (unknown) (unknown) Pulse Rate 89 (units ( unknown) date) unknown) (unknown) (no (unknown) (unknown) Pulse Rate 90 (units ( unknown) date) unknown) (unknown) (no (unknown) (unknown) Pulse Rate 91 H (units (unknown) date) 103 H unknown) (unknown) (no (unknown) (unknown) Pulse Rate 91 H (units (unknown) date) unknown) (unknown) (no (unknown) (unknown) Pulse Rate 92 H 89 (units (unknown) date) unknown) (unknown) (no (unknown) (unknown) Pulse Rate 92 H 90 (units (unknown) date) unknown) (unknown) (no (unknown) (unknown) Pulse Rate 92 H 91 (units (unknown) date) H unknown) (unknown) (no (unknown) (unknown) Pulse Rate 94 H (units (unknown) date) unknown) (unknown) (no (unknown) (unknown) Pulse Rate 95 H (units (unknown) date) 107 H unknown) (unknown) (no (unknown) (unknown) Pulse Rate 96 H 92 (units (unknown) date) H unknown) (unknown) (no (unknown) (unknown) Pulse Rate 97 H 91 (units (unknown) date) H unknown) (unknown) (no (unknown) (unknown) Pulse Rate 97 H (units (unknown) date) unknown) (unknown) (no (unknown) (unknown) RBC 3.75 L (units (unk nown) date) unknown) (unknown) (no (unknown) (unknown) RBC (units (unkno wn) date) unknown) (unknown) (no (unknown) (unknown) RDW 15.2 H (units (unk nown) date) unknown) (unknown) (no (unknown) (unknown) RDW (units (unkno wn) date) unknown) (unknown) (no (unknown) (unknown) RECOMMENDATIONS: (units (unknown) date) unknown) (unknown) (no (unknown) (unknown) RECORDS REVIEW (units (unknown) date) unknown) (unknown) (no (unknown) (unknown) REFERRAL (units (unkno wn) date) INFORMATION unknown) (unknown) (no (unknown) (unknown) ROS: Yes (units (unkno wn) date) unobtainable due to unknown) mental condition (unknown) (no (unknown) (unknown) Reason for (units (unk nown) date) consult: unknown) Schizophrenia, OCD, skin picking (unknown) (no (unknown) (unknown) Requesting (units (unk nown) date) provider: Margarita Parra unknown) Jean (unknown) (no (unknown) (unknown) Result Diagrams: (units (unknown) date) unknown) (unknown) (no (unknown) (unknown) Review of Systems (units (unknown) date) unknown) (unknown) (no (unknown) (unknown) SIGNIFICANT (units (un known) date) MEDICAL HISTORY unknown) (unknown) (no (unknown) (unknown) SUBSTANCE USE (units ( unknown) date) HISTORY unknown) (unknown) (no (unknown) (unknown) Salicylates < 1.0 (units (unknown) date) unknown) (unknown) (no (unknown) (unknown) Salicylates (units (un known) date) unknown) (unknown) (no (unknown) (unknown) Schizophrenia (units ( unknown) date) unknown) (unknown) (no (unknown) (unknown) Serum , (units (unknown) date) Qual Negative unknown) (unknown) (no (unknown) (unknown) Serum , (units (unknown) date) Qual unknown) (unknown) (no (unknown) (unknown) She began to (units (u nknown) date) refuse to eat and unknown) on 07 February was seen in this emergency (unknown) (no (unknown) (unknown) Signed (units (unkno wn) date) By:<Electronically unknown) signed by Clifton Reyez MD> (unknown) (no (unknown) (unknown) Smoking Status: (units (unknown) date) Never smoker unknown) (unknown) (no (unknown) (unknown) Social History (units (unknown) date) unknown) (unknown) (no (unknown) (unknown) Sodium 136 L (units (u nknown) date) unknown) (unknown) (no (unknown) (unknown) Sodium (units (unkno wn) date) unknown) (unknown) (no (unknown) (unknown) Status: Acute (units ( unknown) date) unknown) (unknown) (no (unknown) (unknown) TSH 3.58 (units (unkno wn) date) unknown) (unknown) (no (unknown) (unknown) TSH (units (unkno wn) date) unknown) (unknown) (no (unknown) (unknown) The patient had (units (unknown) date) not been seen in unknown) our clinic since February of 2019 possibly due (unknown) (no (unknown) (unknown) The patient has a (units (unknown) date) long history of unknown) psychotic symptoms, behavioral outbursts, and (unknown) (no (unknown) (unknown) The patient is a (units (unknown) date) 31-year-old unknown) filipina with a very long history of psychotic (unknown) (no (unknown) (unknown) The patient is (units (unknown) date) unable to unknown) articulate a chief complaint. (unknown) (no (unknown) (unknown) The patient?s (units ( unknown) date) referral documents, unknown) medical records and intake questionnaire were (unknown) (no (unknown) (unknown) This is the latest (units (unknown) date) of many psychiatric unknown) evaluations for this 31-year-old filipina (unknown) (no (unknown) (unknown) Time Patient Seen: (units (unknown) date) 12:45 unknown) (unknown) (no (unknown) (unknown) Time Spent With (units (unknown) date) Patient unknown) (unknown) (no (unknown) (unknown) Time with patient: (units (unknown) date) 70 minutes or more, unknown) with 50% spent counseling/coordina ting (unknown) (no (unknown) (unknown) Tobacco + (units (unkn own) date) Substance Use unknown) (unknown) (no (unknown) (unknown) Total Bilirubin (units (unknown) date) 0.5 unknown) (unknown) (no (unknown) (unknown) Total Bilirubin (units (unknown) date) unknown) (unknown) (no (unknown) (unknown) Total Protein 7.8 (units (unknown) date) unknown) (unknown) (no (unknown) (unknown) Total Protein (units ( unknown) date) unknown) (unknown) (no (unknown) (unknown) U Benzodiazepines (units (unknown) date) Scrn Negative unknown) (unknown) (no (unknown) (unknown) U Benzodiazepines (units (unknown) date) Scrn unknown) (unknown) (no (unknown) (unknown) U Marijuana (THC) (units (unknown) date) Screen Negative unknown) (unknown) (no (unknown) (unknown) U Marijuana (THC) (units (unknown) date) Screen unknown) (unknown) (no (unknown) (unknown) U Methamphetamines (units (unknown) date) Scrn Negative unknown) (unknown) (no (unknown) (unknown) U Methamphetamines (units (unknown) date) Scrn unknown) (unknown) (no (unknown) (unknown) U Opiates 300ng/mL (units (unknown) date) cut Negative unknown) (unknown) (no (unknown) (unknown) U Opiates 300ng/mL (units (unknown) date) cut unknown) (unknown) (no (unknown) (unknown) U Tricyclic (units (un known) date) Antidepress unknown) Negative (unknown) (no (unknown) (unknown) U Tricyclic (units (un known) date) Antidepress unknown) (unknown) (no (unknown) (unknown) Unclear if other (units (unknown) date) antipsychotic unknown) medications have been tried. (unknown) (no (unknown) (unknown) Ur Amphetamines (units (unknown) date) Screen Negative unknown) (unknown) (no (unknown) (unknown) Ur Amphetamines (units (unknown) date) Screen unknown) (unknown) (no (unknown) (unknown) Ur Barbiturates (units (unknown) date) Screen Negative unknown) (unknown) (no (unknown) (unknown) Ur Barbiturates (units (unknown) date) Screen unknown) (unknown) (no (unknown) (unknown) Ur Culture (units (unk nown) date) Indicated? Cult not unknown) indicated (unknown) (no (unknown) (unknown) Ur Culture (units (unk nown) date) Indicated? unknown) (unknown) (no (unknown) (unknown) Ur Leukocyte (units (u nknown) date) Esterase Negative unknown) (unknown) (no (unknown) (unknown) Ur Leukocyte (units (u nknown) date) Esterase unknown) (unknown) (no (unknown) (unknown) Ur MDMA Scrn (units (u nknown) date) (Ecstasy) Negative unknown) (unknown) (no (unknown) (unknown) Ur MDMA Scrn (units (u nknown) date) (Ecstasy) unknown) (unknown) (no (unknown) (unknown) Ur Oxycodone (units (u nknown) date) Screen Negative unknown) (unknown) (no (unknown) (unknown) Ur Oxycodone (units (u nknown) date) Screen unknown) (unknown) (no (unknown) (unknown) Ur Phencyclidine (units (unknown) date) Scrn Negative unknown) (unknown) (no (unknown) (unknown) Ur Phencyclidine (units (unknown) date) Scrn unknown) (unknown) (no (unknown) (unknown) Ur Specific (units (un known) date) [place] <=1.005 unknown) (unknown) (no (unknown) (unknown) Ur Specific (units (un known) date) [place] unknown) (unknown) (no (unknown) (unknown) Ur Squamous Epith (units (unknown) date) Cells 0-1 /hpf unknown) (unknown) (no (unknown) (unknown) Ur Squamous Epith (units (unknown) date) Cells unknown) (unknown) (no (unknown) (unknown) Urine Appearance (units (unknown) date) Clear unknown) (unknown) (no (unknown) (unknown) Urine Appearance (units (unknown) date) unknown) (unknown) (no (unknown) (unknown) Urine Bacteria (units (unknown) date) Occasional (0-1) unknown) (unknown) (no (unknown) (unknown) Urine Bacteria (units (unknown) date) unknown) (unknown) (no (unknown) (unknown) Urine Bilirubin (units (unknown) date) Negative unknown) (unknown) (no (unknown) (unknown) Urine Bilirubin (units (unknown) date) unknown) (unknown) (no (unknown) (unknown) Urine Cocaine (units ( unknown) date) Screen Negative unknown) (unknown) (no (unknown) (unknown) Urine Cocaine (units ( unknown) date) Screen unknown) (unknown) (no (unknown) (unknown) Urine Color Straw (units (unknown) date) unknown) (unknown) (no (unknown) (unknown) Urine Color (units (un known) date) unknown) (unknown) (no (unknown) (unknown) Urine Glucose (UA) (units (unknown) date) Negative unknown) (unknown) (no (unknown) (unknown) Urine Glucose (UA) (units (unknown) date) unknown) (unknown) (no (unknown) (unknown) Urine Ketones (units ( unknown) date) Negative unknown) (unknown) (no (unknown) (unknown) Urine Ketones (units ( unknown) date) unknown) (unknown) (no (unknown) (unknown) Urine Methadone (units (unknown) date) Screen Negative unknown) (unknown) (no (unknown) (unknown) Urine Methadone (units (unknown) date) Screen unknown) (unknown) (no (unknown) (unknown) Urine Nitrate (units ( unknown) date) Negative unknown) (unknown) (no (unknown) (unknown) Urine Nitrate (units ( unknown) date) unknown) (unknown) (no (unknown) (unknown) Urine Occult Blood (units (unknown) date) Negative unknown) (unknown) (no (unknown) (unknown) Urine Occult Blood (units (unknown) date) unknown) (unknown) (no (unknown) (unknown) Urine Protein (units ( unknown) date) Negative unknown) (unknown) (no (unknown) (unknown) Urine Protein (units ( unknown) date) unknown) (unknown) (no (unknown) (unknown) Urine RBC None (units (unknown) date) seen unknown) (unknown) (no (unknown) (unknown) Urine RBC (units (unkn own) date) unknown) (unknown) (no (unknown) (unknown) Urine Urobilinogen (units (unknown) date) 0.2 unknown) (unknown) (no (unknown) (unknown) Urine Urobilinogen (units (unknown) date) unknown) (unknown) (no (unknown) (unknown) Urine WBC 0-1/hpf (units (unknown) date) unknown) (unknown) (no (unknown) (unknown) Urine WBC (units (unkn own) date) unknown) (unknown) (no (unknown) (unknown) Urine pH 7.0 (units (u nknown) date) unknown) (unknown) (no (unknown) (unknown) Urine pH (units (unkno wn) date) unknown) (unknown) (no (unknown) (unknown) Vital Signs (units (un known) date) unknown) (unknown) (no (unknown) (unknown) WBC 4.8 (units (unkno wn) date) unknown) (unknown) (no (unknown) (unknown) WBC (units (unkno wn) date) unknown) (unknown) (no (unknown) (unknown) [Embedded Image (units (unknown) date) Not Available] unknown) (unknown) (no (unknown) (unknown) abscess as well. (units (unknown) date) unknown) (unknown) (no (unknown) (unknown) amoxicillin 875 (units (unknown) date) mg-potassium 1 tab unknown) PO Q12H #10 tabs 02/11/22 Rx (unknown) (no (unknown) (unknown) and OCD behavior. (units (unknown) date) They have also unknown) intermittently discontinued or adjusted the (unknown) (no (unknown) (unknown) and chronic (units (un known) date) masturbation. The unknown) patient has also been noted in the past to have (unknown) (no (unknown) (unknown) appears that she (units (unknown) date) is not been unknown) consistently adherent with fluoxetine for at least (unknown) (no (unknown) (unknown) appropriately (units ( unknown) date) treated but later unknown) discharged as it was impossible to find any (unknown) (no (unknown) (unknown) be problematic. (units (unknown) date) Parents apparently unknown) have some concerns about over-sedation (unknown) (no (unknown) (unknown) be willing to eat (units (unknown) date) in order to unknown) maintain adequate nutrition and not allow her to (unknown) (no (unknown) (unknown) bed with numerous (units (unknown) date) sores and wounds on unknown) face and scalp with several areas of (unknown) (no (unknown) (unknown) clavulanate 125 mg (units (unknown) date) tablet unknown) (unknown) (no (unknown) (unknown) clinic for several (units (unknown) date) years by June unknown) CHERELLE Velez as far back as 2016. I reviewed (unknown) (no (unknown) (unknown) compulsive (units (unk nown) date) behaviors that date unknown) back many years. She can be verbal at times but (unknown) (no (unknown) (unknown) currently (units (unkn own) date) available, severe unknown) language barrier, and ongoing medical issues, it is (unknown) (no (unknown) (unknown) deficits (units (unkno wn) date) unknown) (unknown) (no (unknown) (unknown) department with (units (unknown) date) fever and septic unknown) shock. The patient was admitted and (unknown) (no (unknown) (unknown) diagnosed with (units (unknown) date) lupus in sent home. unknown) The patient has a long history of scratching (unknown) (no (unknown) (unknown) directed to those (units (unknown) date) documents for unknown) complete details not repeated here. (unknown) (no (unknown) (unknown) dose of olanzapine (units (unknown) date) down from 20 mg to unknown) 10 or 15 mg depending upon how sedated the (unknown) (no (unknown) (unknown) drink only water. (units (unknown) date) unknown) (unknown) (no (unknown) (unknown) emergency (units (unkno wn) date) department is also unknown) seen as counter productive and possibly harmful, so (unknown) (no (unknown) (unknown) evaluation of (units ( unknown) date) psychosis and unknown) chronic skin picking as well as refusing to eat for (unknown) (no (unknown) (unknown) female ([place] (units (unknown) date) speaking only) unknown) referred from the emergency department for (unknown) (no (unknown) (unknown) fluoxetine 20 mg (units (unknown) date) capsule (Prozac) 20 unknown) mg PO DAILY #30 caps 02/17/22 Rx (unknown) (no (unknown) (unknown) follow-up due to (units (unknown) date) COVID. unknown) (unknown) (no (unknown) (unknown) for 6 days in (units ( unknown) date) December of 2018 unknown) when she presented with a red blotchy rash over (unknown) (no (unknown) (unknown) frequently (units (unk nown) date) refusing to eat for unknown) long periods of time. The patient has a number (unknown) (no (unknown) (unknown) from external ear (units (unknown) date) per bedside team. unknown) (unknown) (no (unknown) (unknown) hair missing. (units ( unknown) date) unknown) (unknown) (no (unknown) (unknown) has tried to have (units (unknown) date) her seen by a unknown) dentist in the past but she refuses to open her (unknown) (no (unknown) (unknown) her entire body. (units (unknown) date) She was treated unknown) with prednisone and topical steroids, (unknown) (no (unknown) (unknown) household members: (units (unknown) date) family unknown) (unknown) (no (unknown) (unknown) illness (units (unkno wn) date) complicated by unknown) obsessive-compulsiv e disorder manifested by extremely (unknown) (no (unknown) (unknown) in previous notes (units (unknown) date) she appeared to unknown) often respond to internal stimuli with little (unknown) (no (unknown) (unknown) language, medical (units (unknown) date) issues, and acuity unknown) of illness. (unknown) (no (unknown) (unknown) lupus sometime (units (unknown) date) around 2019 but it unknown) is unclear if the patient has continued any (unknown) (no (unknown) (unknown) meaningful (units (unk nown) date) conversation is unknown) extremely limited. She apparently was diagnosed with (unknown) (no (unknown) (unknown) medication (units (unk nown) date) adherence. unknown) (unknown) (no (unknown) (unknown) medication and (units (unknown) date) consistent unknown) follow-up. (unknown) (no (unknown) (unknown) medication, but (units (unknown) date) this will require unknown) cross tapering olanzapine with another (unknown) (no (unknown) (unknown) milk shakes, milk, (units (unknown) date) soft foods, trials unknown) of anything and everything that she might (unknown) (no (unknown) (unknown) mirtazapine (units (un known) date) AdvReac unknown) Intermediate Rash severe Verified 01/30/22 06:52 (unknown) (no (unknown) (unknown) mouth. (units (unkno wn) date) unknown) (unknown) (no (unknown) (unknown) mupirocin 2 % (units ( unknown) date) topical ointment 1 unknown) applic topical BID #45 grams 02/11/22 Rx (unknown) (no (unknown) (unknown) needs to be (units (un known) date) transitioned over unknown) to a long-acting injectable antipsychotic (unknown) (no (unknown) (unknown) not likely that (units (unknown) date) she will be unknown) accepted for admission. Long-term stay in the (unknown) (no (unknown) (unknown) not limited to, (units (unknown) date) ensure or boost, unknown) coordination instant breakfast, ice cream, (unknown) (no (unknown) (unknown) of compulsive (units ( unknown) date) behaviors in unknown) addition to scratching her skin such as hair pulling (unknown) (no (unknown) (unknown) olanzapine 10 mg (units (unknown) date) disintegrating 20 unknown) mg PO BEDTIME #60 tabs 02/11/22 Rx (unknown) (no (unknown) (unknown) olanzapine 15 mg (units (unknown) date) nightly. unknown) (unknown) (no (unknown) (unknown) olanzapine 15 mg (units (unknown) date) tablet 15 mg PO unknown) BEDTIME #30 tabs 02/17/22 Rx (unknown) (no (unknown) (unknown) past but we (units (un known) date) suspect so unknown) (unknown) (no (unknown) (unknown) patient is. They (units (unknown) date) have been managing unknown) this with minimal assistance from a local (unknown) (no (unknown) (unknown) persistent and (units (unknown) date) severe auditory, unknown) visual, and tactile hallucinations. Frequently (unknown) (no (unknown) (unknown) picking. 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 unknown) (unknown) (no (unknown) (unknown) related to (units (unk nown) date) delusional content. unknown) In speaking with the patient's mother, it (unknown) (no (unknown) (unknown) reviewed as part (units (unknown) date) of this evaluation. unknown) The patient was previously seen in this (unknown) (no (unknown) (unknown) several of her (units (unknown) date) record going back unknown) to 2018 in the current EHR. Attention is (unknown) (no (unknown) (unknown) stable placement (units (unknown) date) for her in the unknown) psychiatric unit given her severe limitations of (unknown) (no (unknown) (unknown) tablet (Zyprexa (units (unknown) date) Zydis) unknown) (unknown) (no (unknown) (unknown) the past 2 years. (units (unknown) date) In addition, it unknown) seems that adherence with olanzapine may also (unknown) (no (unknown) (unknown) the past 6 days.. (units (unknown) date) unknown) (unknown) (no (unknown) (unknown) to no meaningful (units (unknown) date) conversation. unknown) (unknown) (no (unknown) (unknown) to precautions (units (unknown) date) related to the unknown) COVID pandemic. The family traveled to the (unknown) (no (unknown) (unknown) today; this time (units (unknown) date) is exclusive of unknown) procedural time. (unknown) (no (unknown) (unknown) treatment for (units ( unknown) date) this. She was also unknown) hospitalized at the [facility] (unknown) (no (unknown) (unknown) treatment resistant (units (unknown) date) hair pulling, skin unknown) picking, scratching, that may be possibly (unknown) (no (unknown) (unknown) various body parts (units (unknown) date) but mostly head and unknown) face and skin picking around her face. (unknown) (no (unknown) (unknown) water. Mother (units ( unknown) date) suspects that there unknown) may be some sort of dental issue going on and (unknown) (no (unknown) (unknown) which are likely (units (unknown) date) quite legitimate. unknown) Given patient's history of non adherence she (unknown) (no (unknown) (unknown) with possible (units ( unknown) date) subsequent unknown) worsening of the patient's skin picking, hair pulling, Result panel 538 (unknown) (no (unknown) (unknown) (no value) (units (unk nown) date) unknown) (unknown) (no (unknown) (unknown) <Electronically (units (unknown) date) signed by Margarita Parra unknown) Izt Pena> (unknown) (no (unknown) (unknown) . (units (unkno wn) date) unknown) (unknown) (no (unknown) (unknown) 06:55 06:55 06:55 (units (unknown) date) unknown) (unknown) (no (unknown) (unknown) 09:11 09:11 (units (un known) date) unknown) (unknown) (no (unknown) (unknown) 1 applic topical (units (unknown) date) BID Qty: 45 0RF unknown) (unknown) (no (unknown) (unknown) 1 tab PO Q12H Qty: (units (unknown) date) 10 0RF unknown) (unknown) (no (unknown) (unknown) 11:39 02/17/22 (units (unknown) date) unknown) (unknown) (no (unknown) (unknown) 11:40 02/17/22 (units (unknown) date) unknown) (unknown) (no (unknown) (unknown) 11:40 (units (unkno wn) date) unknown) (unknown) (no (unknown) (unknown) 11:45 02/17/22 (units (unknown) date) unknown) (unknown) (no (unknown) (unknown) 11:50 02/17/22 (units (unknown) date) unknown) (unknown) (no (unknown) (unknown) 11:50 (units (unkno wn) date) unknown) (unknown) (no (unknown) (unknown) 11:55 02/17/22 (units (unknown) date) unknown) (unknown) (no (unknown) (unknown) 11:55 (units (unkno wn) date) unknown) (unknown) (no (unknown) (unknown) 02/17/22 06:55 (units (unknown) date) unknown) (unknown) (no (unknown) (unknown) 02/17/22 02/17/22 (units (unknown) date) 02/17/22 Range/Units unknown) (unknown) (no (unknown) (unknown) 02/17/22 02/17/22 (units (unknown) date) Range/Units unknown) (unknown) (no (unknown) (unknown) 02/17/22 12:09 (units (unknown) date) unknown) (unknown) (no (unknown) (unknown) 02/17/22 1840 (units ( unknown) date) unknown) (unknown) (no (unknown) (unknown) 02/17/22 (units (unkno wn) date) unknown) (unknown) (no (unknown) (unknown) 12:00 02/17/22 (units (unknown) date) unknown) (unknown) (no (unknown) (unknown) 12:05 02/17/22 (units (unknown) date) unknown) (unknown) (no (unknown) (unknown) 12:05 (units (unkno wn) date) unknown) (unknown) (no (unknown) (unknown) 12:10 02/17/22 (units (unknown) date) unknown) (unknown) (no (unknown) (unknown) 12:10 (units (unkno wn) date) unknown) (unknown) (no (unknown) (unknown) 12:15 02/17/22 (units (unknown) date) unknown) (unknown) (no (unknown) (unknown) 12:20 02/17/22 (units (unknown) date) unknown) (unknown) (no (unknown) (unknown) 12:20 (units (unkno wn) date) unknown) (unknown) (no (unknown) (unknown) 12:25 02/17/22 (units (unknown) date) unknown) (unknown) (no (unknown) (unknown) 12:25 (units (unkno wn) date) unknown) (unknown) (no (unknown) (unknown) 12:30 02/17/22 (units (unknown) date) unknown) (unknown) (no (unknown) (unknown) 12:35 02/17/22 (units (unknown) date) unknown) (unknown) (no (unknown) (unknown) 12:35 (units (unkno wn) date) unknown) (unknown) (no (unknown) (unknown) 12:40 02/17/22 (units (unknown) date) unknown) (unknown) (no (unknown) (unknown) 12:40 (units (unkno wn) date) unknown) (unknown) (no (unknown) (unknown) 12:45 02/17/22 (units (unknown) date) unknown) (unknown) (no (unknown) (unknown) 12:50 02/17/22 (units (unknown) date) unknown) (unknown) (no (unknown) (unknown) 12:50 (units (unkno wn) date) unknown) (unknown) (no (unknown) (unknown) 12:55 02/17/22 (units (unknown) date) unknown) (unknown) (no (unknown) (unknown) 12:55 (units (unkno wn) date) unknown) (unknown) (no (unknown) (unknown) 13:00 02/17/22 (units (unknown) date) unknown) (unknown) (no (unknown) (unknown) 13:05 02/17/22 (units (unknown) date) unknown) (unknown) (no (unknown) (unknown) 13:05 (units (unkno wn) date) unknown) (unknown) (no (unknown) (unknown) 13:10 02/17/22 (units (unknown) date) unknown) (unknown) (no (unknown) (unknown) 13:10 (units (unkno wn) date) unknown) (unknown) (no (unknown) (unknown) 13:15 02/17/22 (units (unknown) date) unknown) (unknown) (no (unknown) (unknown) 13:20 02/17/22 (units (unknown) date) unknown) (unknown) (no (unknown) (unknown) 13:20 (units (unkno wn) date) unknown) (unknown) (no (unknown) (unknown) 13:25 02/17/22 (units (unknown) date) unknown) (unknown) (no (unknown) (unknown) 13:25 (units (unkno wn) date) unknown) (unknown) (no (unknown) (unknown) 13:30 02/17/22 (units (unknown) date) unknown) (unknown) (no (unknown) (unknown) 13:35 02/17/22 (units (unknown) date) unknown) (unknown) (no (unknown) (unknown) 13:35 (units (unkno wn) date) unknown) (unknown) (no (unknown) (unknown) 13:40 02/17/22 (units (unknown) date) unknown) (unknown) (no (unknown) (unknown) 13:40 (units (unkno wn) date) unknown) (unknown) (no (unknown) (unknown) 13:45 02/17/22 (units (unknown) date) unknown) (unknown) (no (unknown) (unknown) 13:50 02/17/22 (units (unknown) date) unknown) (unknown) (no (unknown) (unknown) 13:50 (units (unkno wn) date) unknown) (unknown) (no (unknown) (unknown) 13:55 02/17/22 (units (unknown) date) unknown) (unknown) (no (unknown) (unknown) 13:55 (units (unkno wn) date) unknown) (unknown) (no (unknown) (unknown) 14:00 02/17/22 (units (unknown) date) unknown) (unknown) (no (unknown) (unknown) 14:05 02/17/22 (units (unknown) date) unknown) (unknown) (no (unknown) (unknown) 14:05 (units (unkno wn) date) unknown) (unknown) (no (unknown) (unknown) 14:10 02/17/22 (units (unknown) date) unknown) (unknown) (no (unknown) (unknown) 14:10 (units (unkno wn) date) unknown) (unknown) (no (unknown) (unknown) 14:15 02/17/22 (units (unknown) date) unknown) (unknown) (no (unknown) (unknown) 14:20 02/17/22 (units (unknown) date) unknown) (unknown) (no (unknown) (unknown) 14:20 (units (unkno wn) date) unknown) (unknown) (no (unknown) (unknown) 14:25 02/17/22 (units (unknown) date) unknown) (unknown) (no (unknown) (unknown) 14:25 (units (unkno wn) date) unknown) (unknown) (no (unknown) (unknown) 14:30 02/17/22 (units (unknown) date) unknown) (unknown) (no (unknown) (unknown) 14:35 (units (unkno wn) date) unknown) (unknown) (no (unknown) (unknown) 15 mg PO BEDTIME (units (unknown) date) Qty: 30 0RF unknown) (unknown) (no (unknown) (unknown) 15 mg in the, (units ( unknown) date) pushing parents to unknown) make sure patient is eating some form. He will (unknown) (no (unknown) (unknown) 20 mg PO BEDTIME (units (unknown) date) Qty: 60 0RF unknown) (unknown) (no (unknown) (unknown) 20 mg PO DAILY Qty: (unit s (unknown) date) 30 0RF unknown) (unknown) (no (unknown) (unknown) 29, chloride 97, (units (unknown) date) BUN 4 with a unknown) creatinine 0.61 not showing any renal dysfunction (unknown) (no (unknown) (unknown) ABD:bowel sounds (units (unknown) date) normal, soft, unknown) non-tender, no guarding, rebound, rigidity, no (unknown) (no (unknown) (unknown) ALT (<35) IU/L (units (unknown) date) unknown) (unknown) (no (unknown) (unknown) ALT 33 (<35) IU/L (units (unknown) date) unknown) (unknown) (no (unknown) (unknown) AST (14-36) IU/L (units (unknown) date) unknown) (unknown) (no (unknown) (unknown) AST 64 H (14-36) (units (unknown) date) IU/L unknown) (unknown) (no (unknown) (unknown) Acetaminophen < 10 (units (unknown) date) (10-30) ug/mL unknown) (unknown) (no (unknown) (unknown) Acetaminophen (units ( unknown) date) (10-30) ug/mL unknown) (unknown) (no (unknown) (unknown) Activity (units (unkno wn) date) Restrictions/Additio unknown) nal Instructions: (unknown) (no (unknown) (unknown) Admin: 02/17/22 (units (unknown) date) 07:03 Dose: 1,000 unknown) mls/hr (unknown) (no (unknown) (unknown) Admin: 02/17/22 (units (unknown) date) 09:57 Dose: 1,000 unknown) mls/hr (unknown) (no (unknown) (unknown) Age/Sex: 31 / F (units (unknown) date) unknown) (unknown) (no (unknown) (unknown) Albumin (3.5-5.0) (units (unknown) date) g/dL unknown) (unknown) (no (unknown) (unknown) Albumin 3.6 (units (un known) date) (3.5-5.0) g/dL unknown) (unknown) (no (unknown) (unknown) Albumin/Globulin (units (unknown) date) Ratio (1.0-2.8) unknown) (unknown) (no (unknown) (unknown) Albumin/Globulin (units (unknown) date) Ratio 0.9 L unknown) (1.0-2.8) (unknown) (no (unknown) (unknown) Alkaline (units (unkno wn) date) Phosphatase (38-126) unknown) U/L (unknown) (no (unknown) (unknown) Alkaline (units (unkno wn) date) Phosphatase 55 unknown) (38-126) U/L (unknown) (no (unknown) (unknown) Allergies (units (unkn own) date) unknown) (unknown) (no (unknown) (unknown) Allergy/AdvReac (units (unknown) date) Type Severity unknown) Reaction Status Date / Time (unknown) (no (unknown) (unknown) Attestation: I (units (unknown) date) personally reviewed unknown) and interpreted this ECG as follows: (unknown) (no (unknown) (unknown) BUN (7-17) mg/dL (units (unknown) date) unknown) (unknown) (no (unknown) (unknown) BUN 4 L (7-17) (units (unknown) date) mg/dL unknown) (unknown) (no (unknown) (unknown) BUN/Creatinine (units (unknown) date) Ratio (6-22) unknown) (unknown) (no (unknown) (unknown) BUN/Creatinine (units (unknown) date) Ratio 6.6 (6-22) unknown) (unknown) (no (unknown) (unknown) Baso # (Auto) (units ( unknown) date) (0-100) /uL unknown) (unknown) (no (unknown) (unknown) Baso # (Auto) 100 (units (unknown) date) (0-100) /uL unknown) (unknown) (no (unknown) (unknown) Baso % (Auto) (0-2) (unit s (unknown) date) % unknown) (unknown) (no (unknown) (unknown) Baso % (Auto) 1.2 (units (unknown) date) (0-2) % unknown) (unknown) (no (unknown) (unknown) Blood Pressure (units (unknown) date) 100/58 L 96/61 unknown) (unknown) (no (unknown) (unknown) Blood Pressure (units (unknown) date) 100/59 L 100/61 unknown) (unknown) (no (unknown) (unknown) Blood Pressure (units (unknown) date) 100/59 L 98/56 L unknown) (unknown) (no (unknown) (unknown) Blood Pressure (units (unknown) date) 100/60 97/58 L unknown) (unknown) (no (unknown) (unknown) Blood Pressure (units (unknown) date) 100/61 99/61 unknown) (unknown) (no (unknown) (unknown) Blood Pressure (units (unknown) date) 101/64 103/62 unknown) (unknown) (no (unknown) (unknown) Blood Pressure (units (unknown) date) 101/ unknown) (unknown) (no (unknown) (unknown) Blood Pressure (units (unknown) date) 103/ unknown) (unknown) (no (unknown) (unknown) Blood Pressure (units (unknown) date) 82/52 L 02/17/ unknown) 06:15 (unknown) (no (unknown) (unknown) Blood Pressure (units (unknown) date) 91/56 L unknown) (unknown) (no (unknown) (unknown) Blood Pressure (units (unknown) date) 95/61 unknown) (unknown) (no (unknown) (unknown) Blood Pressure (units (unknown) date) 96/57 L unknown) (unknown) (no (unknown) (unknown) Blood Pressure (units (unknown) date) 97/57 L unknown) (unknown) (no (unknown) (unknown) Blood Pressure (units (unknown) date) 97/60 unknown) (unknown) (no (unknown) (unknown) Blood Pressure (units (unknown) date) 97/61 98/61 unknown) (unknown) (no (unknown) (unknown) Blood Pressure (units (unknown) date) 97/61 unknown) (unknown) (no (unknown) (unknown) Blood Pressure (units (unknown) date) 97/62 98/63 unknown) (unknown) (no (unknown) (unknown) Blood Pressure (units (unknown) date) 98/57 L 99/58 L unknown) (unknown) (no (unknown) (unknown) Blood Pressure (units (unknown) date) 98/58 L unknown) (unknown) (no (unknown) (unknown) Blood Pressure (units (unknown) date) 98/59 L 95/57 L unknown) (unknown) (no (unknown) (unknown) Blood Pressure (units (unknown) date) 98/61 unknown) (unknown) (no (unknown) (unknown) Blood Pressure (units (unknown) date) 98/65 unknown) (unknown) (no (unknown) (unknown) Blood Pressure (units (unknown) date) 99/59 L unknown) (unknown) (no (unknown) (unknown) Blood Pressure (units (unknown) date) 99/61 unknown) (unknown) (no (unknown) (unknown) Blood Pressure (units (unknown) date) 99/63 98/59 L unknown) (unknown) (no (unknown) (unknown) Calcium (8.4-10.2) (units (unknown) date) mg/dL unknown) (unknown) (no (unknown) (unknown) Calcium 8.5 (units (un known) date) (8.4-10.2) mg/dL unknown) (unknown) (no (unknown) (unknown) Carbon Dioxide (units (unknown) date) (22-32) mmol/L unknown) (unknown) (no (unknown) (unknown) Carbon Dioxide 29 (units (unknown) date) (22-32) mmol/L unknown) (unknown) (no (unknown) (unknown) Chief complaint: (units (unknown) date) Weakness unknown) (unknown) (no (unknown) (unknown) Chloride (98-107) (units (unknown) date) mmol/L unknown) (unknown) (no (unknown) (unknown) Chloride 97 L (units ( unknown) date) (98-107) mmol/L unknown) (unknown) (no (unknown) (unknown) Clinical (units (unkno wn) date) Impression: unknown) (unknown) (no (unknown) (unknown) Consultation #1: (units (unknown) date) unknown) (unknown) (no (unknown) (unknown) Consultation #2: (units (unknown) date) unknown) (unknown) (no (unknown) (unknown) Consultations (units ( unknown) date) unknown) (unknown) (no (unknown) (unknown) Continue to (units (un known) date) encourage hydration unknown) and whatever form of food she is willing to (unknown) (no (unknown) (unknown) Continue with (units ( unknown) date) olanzapine 15 mg in unknown) the evening. (unknown) (no (unknown) (unknown) Course (units (unkno wn) date) unknown) (unknown) (no (unknown) (unknown) Creatinine (units (unk nown) date) (0.52-1.04) mg/dL unknown) (unknown) (no (unknown) (unknown) Creatinine 0.61 (units (unknown) date) (0.52-1.04) mg/dL unknown) (unknown) (no (unknown) (unknown) : 1990 (units (unknown) date) Acct:[id number] unknown) (unknown) (no (unknown) (unknown) Date of Service: (units (unknown) date) 02/17/22 unknown) (unknown) (no (unknown) (unknown) Departure (units (unkn own) date) unknown) (unknown) (no (unknown) (unknown) Diphenhydramine HCl (unit s (unknown) date) (Diphenhydramine 25 unknown) Mg Tablet) 25 mg PO NOW ONE (unknown) (no (unknown) (unknown) Discharge Plan (units (unknown) date) unknown) (unknown) (no (unknown) (unknown) Discontinued (units (u nknown) date) Medications unknown) (unknown) (no (unknown) (unknown) Documented By: AT (units (unknown) date) unknown) (unknown) (no (unknown) (unknown) Documented By: JACI (units (unknown) date) unknown) (unknown) (no (unknown) (unknown) Documented By: KB (units (unknown) date) unknown) (unknown) (no (unknown) (unknown) Dr. Reyez saw (units (unknown) date) patient in unknown) department. 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 She is no longer (unknown) (no (unknown) (unknown) Dr. Timmons, patient (units (unknown) date) has hypokalemia is unknown) not taking solids but is drinking fluids, (unknown) (no (unknown) (unknown) ECG Data (units (unkno wn) date) unknown) (unknown) (no (unknown) (unknown) ED Orders (units (unkn own) date) unknown) (unknown) (no (unknown) (unknown) EKG-12 Lead Stat (units (unknown) date) unknown) (unknown) (no (unknown) (unknown) ER Physician: (units ( unknown) date) Margarita Pena D.O. unknown) (unknown) (no (unknown) (unknown) Emergency Report (units (unknown) date) unknown) (unknown) (no (unknown) (unknown) Eos # (Auto) (units (u nknown) date) (0-450) /uL unknown) (unknown) (no (unknown) (unknown) Eos # (Auto) 0 (units (unknown) date) (0-450) /uL unknown) (unknown) (no (unknown) (unknown) Eos % (Auto) (2-4) (units (unknown) date) % unknown) (unknown) (no (unknown) (unknown) Eos % (Auto) 0.0 L (units (unknown) date) (2-4) % unknown) (unknown) (no (unknown) (unknown) Estimated GFR > 60 (units (unknown) date) (>60) mL/min unknown) (unknown) (no (unknown) (unknown) Estimated GFR (>60) (unit s (unknown) date) mL/min unknown) (unknown) (no (unknown) (unknown) Ethyl Alcohol < 10 (units (unknown) date) ( - 10) mg/dL unknown) (unknown) (no (unknown) (unknown) Ethyl Alcohol ( - (units (unknown) date) 10) mg/dL unknown) (unknown) (no (unknown) (unknown) Exam Narrative: (units (unknown) date) unknown) (unknown) (no (unknown) (unknown) Exam (units (unkno wn) date) unknown) (unknown) (no (unknown) (unknown) Follow up with (units (unknown) date) [facility] our local unknown) psychiatrist on March 02 thing in the (unknown) (no (unknown) (unknown) GEN: Female in mild (unit s (unknown) date) distress, alert and unknown) oriented, patient appears to be in mild (unknown) (no (unknown) (unknown) GI or urinary (units ( unknown) date) symptoms. They note unknown) that she does tend to eat and drink better (unknown) (no (unknown) (unknown) :No CVA (units (unkn own) date) tenderness unknown) (unknown) (no (unknown) (unknown) General (units (unkno wn) date) unknown) (unknown) (no (unknown) (unknown) Globulin (1.7-4.1) (units (unknown) date) g/dL unknown) (unknown) (no (unknown) (unknown) Globulin 4.2 H (units (unknown) date) (1.7-4.1) g/dL unknown) (unknown) (no (unknown) (unknown) Glucose (70-100) (units (unknown) date) mg/dL unknown) (unknown) (no (unknown) (unknown) Glucose 130 H (units ( unknown) date) (70-100) mg/dL unknown) (unknown) (no (unknown) (unknown) HEART: Regular rate (unit s (unknown) date) and rhythm without unknown) murmur, clicks, rubs. 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 All unknown) questions answered. 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) (unknown) (no (unknown) (unknown) History of Present (units (unknown) date) Illness unknown) (unknown) (no (unknown) (unknown) History of (units (unk nown) date) pulmonary embolism unknown) (unknown) (no (unknown) (unknown) Initial Vital Signs (unit s (unknown) date) unknown) (unknown) (no (unknown) (unknown) Initial Vital (units ( unknown) date) Signs: unknown) (unknown) (no (unknown) (unknown) Interpretation: (units (unknown) date) unknown) (unknown) (no (unknown) (unknown) [facility] (units (unknown) date) [address] unknown) [place] [address] (unknown) (no (unknown) (unknown) LUNGS:Lungs clear (units (unknown) date) to auscultation, no unknown) wheezes, rales, crackles, chest moves (unknown) (no (unknown) (unknown) Lab Data (units (unkno wn) date) unknown) (unknown) (no (unknown) (unknown) Lab Results (units (un known) date) unknown) (unknown) (no (unknown) (unknown) Labs: (units (unkno wn) date) unknown) (unknown) (no (unknown) (unknown) Lactate (0.7-2.1) (units (unknown) date) mmol/L unknown) (unknown) (no (unknown) (unknown) Lactate 1.5 (units (un known) date) (0.7-2.1) mmol/L unknown) (unknown) (no (unknown) (unknown) Last Admin: (units (un known) date) 02/17/22 08:08 Dose: unknown) 40 meq (unknown) (no (unknown) (unknown) Last Admin: (units (un known) date) 02/17/22 09:01 Dose: unknown) 20 mg (unknown) (no (unknown) (unknown) Last Admin: (units (un known) date) 02/17/22 09:02 Dose: unknown) 25 mg (unknown) (no (unknown) (unknown) Last Admin: (units (un known) date) 02/17/22 09:02 Dose: unknown) 40 meq (unknown) (no (unknown) (unknown) Last Admin: (units (un known) date) 02/17/22 10:56 Dose: unknown) Not Given (unknown) (no (unknown) (unknown) Last Admin: (units (un known) date) 02/17/22 10:57 Dose: unknown) 1 mg (unknown) (no (unknown) (unknown) Last Infusion: (units (unknown) date) 02/17/22 08:10 Dose: unknown) 0 mls/hr (unknown) (no (unknown) (unknown) Last Infusion: (units (unknown) date) 02/17/22 11:53 Dose: unknown) 0 mls/hr (unknown) (no (unknown) (unknown) Limitations: no (units (unknown) date) limitations unknown) (unknown) (no (unknown) (unknown) Lipase (23-300) U/L (unit s (unknown) date) unknown) (unknown) (no (unknown) (unknown) Lipase 33 (23-300) (units (unknown) date) U/L unknown) (unknown) (no (unknown) (unknown) Lorazepam (units (unkn own) date) (Lorazepam 0.5 Mg unknown) Tablet) 2 mg PO NOW ONE (unknown) (no (unknown) (unknown) Lorazepam (units (unkn own) date) (Lorazepam 2 Mg/Ml unknown) Inj) 1 mg IM NOW ONE (unknown) (no (unknown) (unknown) Lymph # (Auto) (units (unknown) date) (2607-0369) /uL unknown) (unknown) (no (unknown) (unknown) Lymph # (Auto) 900 (units (unknown) date) L (9136-0837) /uL unknown) (unknown) (no (unknown) (unknown) Lymph % (Auto) (units (unknown) date) (25-40) % unknown) (unknown) (no (unknown) (unknown) Lymph % (Auto) 18.2 (unit s (unknown) date) L (25-40) % unknown) (unknown) (no (unknown) (unknown) [id number] (units (unk nown) date) unknown) (unknown) (no (unknown) (unknown) MCH (26-34) PG (units (unknown) date) unknown) (unknown) (no (unknown) (unknown) MCH 28.1 (26-34) PG (unit s (unknown) date) unknown) (unknown) (no (unknown) (unknown) MCHC (30-36) % (units (unknown) date) unknown) (unknown) (no (unknown) (unknown) MCHC 32.9 (30-36) % (unit s (unknown) date) unknown) (unknown) (no (unknown) (unknown) MCV (80-100) fL (units (unknown) date) unknown) (unknown) (no (unknown) (unknown) MCV 85.3 (80-100) (units (unknown) date) fL unknown) (unknown) (no (unknown) (unknown) MDM Narrative (units ( unknown) date) unknown) (unknown) (no (unknown) (unknown) MSCL: Non-tender, (units (unknown) date) no muscle atrophy, unknown) muscles strength 5/5 upper and lower (unknown) (no (unknown) (unknown) Magnesium (1.6-2.3) (unit s (unknown) date) mg/dL unknown) (unknown) (no (unknown) (unknown) Magnesium 2.1 (units ( unknown) date) (1.6-2.3) mg/dL unknown) (unknown) (no (unknown) (unknown) Medical Decision (units (unknown) date) Making unknown) (unknown) (no (unknown) (unknown) Medical History (units (unknown) date) (Reviewed 02/17/22 @ unknown) 15:28 by Clifton Reyez MD) (unknown) (no (unknown) (unknown) Medical decision (units (unknown) date) making narrative: unknown) (unknown) (no (unknown) (unknown) Medication (units (unk nown) date) Instructions unknown) Recorded (unknown) (no (unknown) (unknown) Miscellaneous,[place] (unit s (unknown) date) MD bjorn [Primary Care unknown) Provider] (unknown) (no (unknown) (unknown) Mode of arrival: (units (unknown) date) Wheelchair unknown) (unknown) (no (unknown) (unknown) Butts # (Auto) (units ( unknown) date) (0-900) /uL unknown) (unknown) (no (unknown) (unknown) Butts # (Auto) 500 (units (unknown) date) (0-900) /uL unknown) (unknown) (no (unknown) (unknown) Butts % (Auto) (units ( unknown) date) (3-14) % unknown) (unknown) (no (unknown) (unknown) Butts % (Auto) 10.3 (units (unknown) date) (3-14) % unknown) (unknown) (no (unknown) (unknown) NEURO:CN 2-12 (units ( unknown) date) intact, sensation unknown) normal (unknown) (no (unknown) (unknown) Narrative (units (unkn own) date) unknown) (unknown) (no (unknown) (unknown) Neut # (Auto) (units ( unknown) date) (7533-4506) /uL unknown) (unknown) (no (unknown) (unknown) Neut # (Auto) 3400 (units (unknown) date) (0470-1204) /uL unknown) (unknown) (no (unknown) (unknown) Neut % (Auto) (units ( unknown) date) (50-75) % unknown) (unknown) (no (unknown) (unknown) Neut % (Auto) 70.3 (units (unknown) date) (50-75) % unknown) (unknown) (no (unknown) (unknown) New (units (unkno wn) date) unknown) (unknown) (no (unknown) (unknown) No Action (units (unkn own) date) unknown) (unknown) (no (unknown) (unknown) Olanzapine (units (unk nown) date) (Olanzapine Odt 10 unknown) Mg Tab) 20 mg PO NOW ONE (unknown) (no (unknown) (unknown) Ordered: (units (unkno wn) date) unknown) (unknown) (no (unknown) (unknown) Orders (units (unkno wn) date) unknown) (unknown) (no (unknown) (unknown) Oxygen Delivery (units (unknown) date) Method 02/17/22 unknown) 06:15 (unknown) (no (unknown) (unknown) Oxygen Delivery (units (unknown) date) Method Room Air Room unknown) Air (unknown) (no (unknown) (unknown) Oxygen Delivery (units (unknown) date) Method Room Air unknown) (unknown) (no (unknown) (unknown) Oxygen Delivery (units (unknown) date) Method unknown) (unknown) (no (unknown) (unknown) PSYCH: Patient (units (unknown) date) describes unknown) halluciations auditory and visual to parents including (unknown) (no (unknown) (unknown) Patient (units (unkno wn) date) Disposition: Home unknown) (unknown) (no (unknown) (unknown) Patient History (units (unknown) date) unknown) (unknown) (no (unknown) (unknown) Patient because of (units (unknown) date) language barriers unknown) and her psychiatric issues does not follow (unknown) (no (unknown) (unknown) Patient does (units (u nknown) date) continue to pull and unknown) scratch it the we could try mittens but (unknown) (no (unknown) (unknown) Patient took oral (units (unknown) date) potassium x 2 here unknown) in the department was given additional (unknown) (no (unknown) (unknown) Patient: (units (unkno wn) date) [place] unknown) MR#: (unknown) (no (unknown) (unknown) Phosphorus (units (unk nown) date) (2.5-4.5) mg/dL unknown) (unknown) (no (unknown) (unknown) Phosphorus 4.8 H (units (unknown) date) (2.5-4.5) mg/dL unknown) (unknown) (no (unknown) (unknown) Please restart (units (unknown) date) Prozac 20 mg daily unknown) (unknown) (no (unknown) (unknown) Please return for (units (unknown) date) worsening changes if unknown) patient is having new signs of infection (unknown) (no (unknown) (unknown) Plt Count (150-400) (unit s (unknown) date) X103/uL unknown) (unknown) (no (unknown) (unknown) Plt Count 99 L (units (unknown) date) (150-400) X103/uL unknown) (unknown) (no (unknown) (unknown) Potassium (3.4-5.1) (unit s (unknown) date) mmol/L unknown) (unknown) (no (unknown) (unknown) Potassium 2.8 L (units (unknown) date) (3.4-5.1) mmol/L unknown) (unknown) (no (unknown) (unknown) Potassium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 (no (unknown) (unknown) placement as well (units (unknown) date) as lower shins. No unknown) significant abrasions or ecchymosis or (unknown) (no (unknown) (unknown) placement their (units (unknown) date) main concern today unknown) is getting her to eat and drink more (unknown) (no (unknown) (unknown) posterior scalp top (unit s (unknown) date) of her scalp and unknown) abrasions no deep wounds passed the (unknown) (no (unknown) (unknown) psychiatric (units (un known) date) hospitalization unknown) quite some time ago but more for aggressive hitting (unknown) (no (unknown) (unknown) pulses are equal in (unit s (unknown) date) upper and lower unknown) extremities (unknown) (no (unknown) (unknown) recently for sepsis (unit s (unknown) date) and infection, unknown) parents state her wounds or significantly (unknown) (no (unknown) (unknown) regularly but based (unit s (unknown) date) on language barriers unknown) this might actually be more (unknown) (no (unknown) (unknown) see the patient in (units (unknown) date) the office to unknown) facilitate follow-up as she may be a candidate (unknown) (no (unknown) (unknown) seeing a (units (unkno wn) date) psychiatrist but unknown) they left she is on Zyprexa, Prozac and amoxicillin (unknown) (no (unknown) (unknown) she has not been (units (unknown) date) eating for the past unknown) 6 days she has been taking some liquids. (unknown) (no (unknown) (unknown) some small areas of (unit s (unknown) date) ecchymosis on her unknown) wrist and consistent with prior IV (unknown) (no (unknown) (unknown) superficial skin (units (unknown) date) layer. Patient's unknown) chin the most superficial layer of skin has (unknown) (no (unknown) (unknown) symmetrically (units ( unknown) date) unknown) (unknown) (no (unknown) (unknown) tablet (Zyprexa (units (unknown) date) Zydis) unknown) (unknown) (no (unknown) (unknown) take. (units (unkno wn) date) unknown) (unknown) (no (unknown) (unknown) that her food is (units (unknown) date) being poisoned, unknown) snakes in the mirrors. (unknown) (no (unknown) (unknown) that she was (units (u nknown) date) drinking adequate unknown) fluids but not taking food during her (unknown) (no (unknown) (unknown) them that so far (units (unknown) date) hospitalist has unknown) declined. [facility] was used by myself, (unknown) (no (unknown) (unknown) these, patient does (unit s (unknown) date) continue to pull at unknown) the scabs and wounds on her head, was (unknown) (no (unknown) (unknown) today, phosphorus (units (unknown) date) is 4.8 with a unknown) glucose of 130 lactate normal at 1.5 with (unknown) (no (unknown) (unknown) traumatizing for (units (unknown) date) the patient and not unknown) helpful. Family is not interested in this (unknown) (no (unknown) (unknown) typical. They have (units (unknown) date) not appreciated unknown) redness or swelling. No other new (unknown) (no (unknown) (unknown) vomiting, if she is (units (unknown) date) having black or unknown) bloody stools, if she is not making urine or (unknown) (no (unknown) (unknown) we did discuss that (unit s (unknown) date) because she has a unknown) perfect TM she will have some persistent (unknown) (no (unknown) (unknown) when she is taking (units (unknown) date) her medications more unknown) consistently. Discharge no also notes (unknown) (no (unknown) (unknown) white count is 4.8 (units (unknown) date) with platelets of 99 unknown) no leftward shift or bandemia. UA today (unknown) (no (unknown) (unknown) will sort of follow (unit s (unknown) date) commands. Patient unknown) parents state that she has been doing (unknown) (no (unknown) (unknown) with a hemoglobin (units (unknown) date) of 10 which appears unknown) similar to her earlier stay this month, (unknown) (no (unknown) (unknown) with family about (units (unknown) date) inpatient unknown) psychiatric so that patient can get her medications Social History date description facility 2022-01-30 00:00 Never smoked tobacco (finding) [facility] 2022-02-07 00:00 Never smoked tobacco (finding) [facility] 2022-02-08 00:00 Never smoked tobacco (finding) [facility] 2022-02-17 00:00 Never smoked tobacco (finding) [facility] Vital Signs date measurement value units 2022-01-30 00:00 BMI 19.4 kg/m2 2022-01-30 00:00 height_metric 154.94 cm 2022-01-30 00:00 height_standard 61 in 2022-01-30 00:00 weight_metric 46.72 kg 2022-01-30 00:00 weight_standard 103 lb 2022-02-07 00:00 height_metric 154.94 cm 2022-02-07 00:00 height_standard 61 in 2022-02-07 00:00 weight_metric 42 kg 2022-02-07 00:00 weight_standard 92.59 lb 2022-02-08 00:00 BP_diastolic 61 mmHg 2022-02-08 00:00 BP_systolic 98 mmHg 2022-02-08 00:00 heart_rate 86 /min 2022-02-08 00:00 o2_saturation 90 % 2022-02-08 00:00 respiration_rate 36 /min 2022-02-08 00:00 temperature_metric 37.22 C 2022-02-08 00:00 temperature_standard 99 F 2022-02-10 00:00 weight_metric 43.3 kg 2022-02-10 00:00 weight_standard 95.46 lb 2022-02-11 00:00 BP_diastolic 57 mmHg 2022-02-11 00:00 BP_systolic 114 mmHg 2022-02-11 00:00 heart_rate 96 /min 2022-02-11 00:00 o2_saturation 99 % 2022-02-11 00:00 respiration_rate 17 /min 2022-02-11 00:00 temperature_metric 37.28 C 2022-02-11 00:00 temperature_standard 99.1 F 2022-02-17 00:00 BP_diastolic 66 mmHg 2022-02-17 00:00 BP_systolic 103 mmHg 2022-02-17 00:00 heart_rate 94 /min 2022-02-17 00:00 o2_saturation 98 % 2022-02-17 00:00 respiration_rate 18 /min 2022-02-17 00:00 temperature_metric 37.33 C 2022-02-17 00:00 temperature_standard 99.2 F 2022-02-17 00:00 weight_metric 37.1 kg 2022-02-17 00:00 weight_standard 81.79 lb
[2022-03-01 12:31] LABS: ACETAMINOPHEN < 10 ug/mL (10-30); ALBUMIN 2.7 g/dL (3.2-5.5); ALBUMIN/GLOBULIN RATIO 0.8 (1.0-2.2); ALKALINE PHOSPHATASE 53 IU/L (42-121); ALT ALANINE AMINOTRANSFERASE 25 IU/L (10-60); AST ASPARTATE AMINOTRANSFERASE 43 IU/L (10-42); BILIRUBIN,TOTAL 0.5 mg/dL (0.2-1.0); BUN - BLOOD UREA NITROGEN 7 mg/dL (6-20); CALCIUM 7.4 mg/dL (8.5-10.3); CARBON DIOXIDE - CO2 25 mmol/L (21-32); CHLORIDE 102 mmol/L (101-111); CREATININE 0.6 mg/dL (0.4-1.0); ETOH - ETHANOL < 5.0 mg/dL; GFR - MDRD 116 (>89); GLUCOSE 134 mg/dL (70-100); LIPASE 35 U/L (22-51); POTASSIUM 3.5 mmol/L (3.5-5.0); SALICYLATE < 6.0 mg/dL; SODIUM 138 mmol/L (135-145); TOTAL PROTEIN 6.2 g/dL (6.7-8.2)
[2022-03-01] MEDS ORDERED: OLANZapine ODT 5 MG TABLET TL ONE (12:45)
[2022-03-01] MEDS ORDERED: HALOPERIDOL 5 MG/ML VIAL IVP STA (13:04)
[2022-03-01] MEDS ORDERED: LORazepam 2 MG/ML VIAL IVP STA (13:05)
[2022-03-01 13:18] LABS: HGB - HEMOGLOBIN 8.1 g/dL (12.0-16.0)
[2022-03-01 13:29] LABS: BAND NEUTROPHILS % (MANUAL) 6 %; LYMPHOCYTES # (MANUAL) 0.8 10^3/uL (1.5-3.5); LYMPHOCYTES % (MANUAL) 11 %; MONOCYTES # (MANUAL) 0.2 10^3/uL (0.0-1.0); MYELOCYTES % (MANUAL) 1 %; NEUTROPHILS # (MANUAL) 5.7 10^3/uL (1.5-6.6); REACTIVE LYMPHS % (MANUAL) 1 %
[2022-03-01 13:30] LABS: DIFFERENTIAL COMMENT MANUAL DIFFERENTIAL
[2022-03-01 14:12] LABS: MUDS CUTOFF CONCENTRATIONS CUTOFF CONC BELOW:
[2022-03-01 14:27] LABS: BILIRUBIN,URINE NEGATIVE (NEGATIVE); GLUCOSE, URINE (UA) NEGATIVE (NEGATIVE); KETONES,URINE (UA) NEGATIVE (NEGATIVE); LEUKOCYTE ESTERASE, URINE NEGATIVE (NEGATIVE); NITRITE,URINE NEGATIVE (NEGATIVE); OCCULT BLOOD,URINE NEGATIVE (NEGATIVE); PROTEIN,URINE NEGATIVE (NEGATIVE); UROBILINOGEN,URINE 0.2 (NORMAL) E.U./dL (NORMAL)
[2022-03-01 14:30] LABS: CLARITY,URINE CLEAR (CLEAR); HCG UR QUAL NEGATIVE
[2022-03-01 14:36] LABS: AMPHETAMINE SCREEN,URINE NEGATIVE (NEGATIVE); BARBITURATE SCREEN,UR NEGATIVE (NEGATIVE); BENZODIAZEPINES SCREEN, URINE NEGATIVE (NEGATIVE); COCAINE SCREEN URINE NEGATIVE (NEGATIVE); METHADONE SCREEN, URINE NEGATIVE (NEGATIVE); METHAMPHETAMINES SCREEN, URINE NEGATIVE (NEGATIVE); OPIATE SCREEN, URINE NEGATIVE (NEGATIVE); OXYCODONE SCREEN, URINE NEGATIVE (NEGATIVE); PROPOXYPHENE SCREEN, URINE NEGATIVE (NEGATIVE); THC CANNABINOID SCREEN, URINE NEGATIVE (NEGATIVE); TRICYCLIC ANTIDEPRESSANT,URINE NEGATIVE (NEGATIVE)
[2022-03-01 19:37] VITALS: BP 105/57
== END 2022-03-01 19:51 | disposition home or self-care (01) ==
LOC: ED 11:18
DX: S00.81XA Abrasion of other part of head, initial encounter (principal); S00.01XA Abrasion of scalp, initial encounter; X58.XXXA Exposure to other specified factors, initial encounter; F20.9 Schizophrenia, unspecified; D64.9 Anemia, unspecified; Z20.822 Contact with and (suspected) exposure to COVID-19
CPT/HCPCS: 36415; 51701; 80053; 80306; 80307; 81003; 81025; 83690; 84443; 85014; 85018; 85025; 87635; 96374; 96375; 99284; 99285; G0480; J1200; J2060; 80320; 80329; 81001; 87086